=== PATIENT | female | born 1975 ===

== ENCOUNTER 2020-11-22 20:39 | Inpatient (IN) | payer OTHER, SELFPAY ==
--- NOTE | ~2020-11-22 | XR_ITS ---
EXAMINATION: XR CHEST CLINICAL INFORMATION: Palpitations COMPARISON: Chest x-ray December 08, 2018 TECHNIQUE: Frontal portable view of the chest was obtained. 9:57 PM FINDINGS: No significant abnormality is noted involving the heart, lungs, mediastinum, bony thorax or soft tissues. XR/XR chest 1V IMPRESSION: Unremarkable examination.
[2020-11-22 20:54] VITALS: BP 132/82; PULSE 78; RESP 16; TEMP 36.4; O2SAT 100; BMI 46.3
--- NOTE | 2020-11-22 21:04 | ECG_ITS ---
Test Reason : PALPITATIONS Blood Pressure : / mmHG Vent. Rate : 129 BPM Atrial Rate : 115 BPM P-R Int : 000 ms QRS Dur : 088 ms QT Int : 320 ms P-R-T Axes : 000 -16 055 degrees QTc Int : 468 ms Atrial fibrillation with rapid ventricular response Minimal voltage criteria for LVH, may be normal variant Septal infarct , age undetermined Abnormal ECG No previous ECGs available Referred By: Generic ED Physician Electronically Signed By:Fly Noguera
[2020-11-22 21:24] LABS: MANUAL DIFF FLAG NO
[2020-11-22 21:27] LABS: Basophils Absolute Auto 0.1 X10*3/uL (0.0-0.2); Basophils Percent Auto 0.5 % (0-2); Eosinophils Absolute Auto 0.1 X10*3/uL (0.0-0.4); Eosinophils Percent Auto 1.1 % (0-4); Hematocrit 46.1 % (37-47); Hemoglobin 15.2 g/dl (12.0-16.0); Imm Gran Abs Auto 0.03 X10*3/uL (0.00-0.03); Imm Gran Pct Auto 0.3 % (0.0-0.4); Lymphocytes Absolute Auto 3.8 X10*3/uL (1.2-4.9); Lymphocytes Percent Auto 33.4 % (20-40); Mean Corpuscular Hemoglobin 28.1 pg (27.0-33.0); Mean Corpuscular Volume 85.4 fL (80-98); Mean Platelet Volume 9.1 fL (9.4-12.3); Monocytes Percent Auto 8.5 % (2-11); Neutrophils Absolute Auto 6.4 X10*3/uL (2.0-8.3); Neutrophils Percent Auto 56.2 % (45-73); Platelet Count 297 X10*3/uL (160-400); Red Cell Distribution Width 11.9 % (11.0-16.0); White Blood Count 11.3 X10*3/uL (4.8-10.8)
--- NOTE | 2020-11-22 21:34 | ED.ARRPALP ---
HPI - Arrhythmia/Palpitations General Chief Complaint: Arrhythmia/Palpitations Stated Complaint: palpitations Time Seen by Provider: 11/22/20 21:34 Source: patient Mode of arrival: ambulatory Limitations: no limitations History of Present Illness HPI narrative: Patient history of lone fibrillation last episode was 5 years ago not on any medications noticed sudden onset of palpitation after walking for an hour started at 16:30 on arrival patient was beating 160 beats per minute AFib feel little lightheaded and weak denies any shortness of breath or chest pain patient had occasional episode lasting a few minutes in the past 5 years never had to go to the hospital complaint: rapid heart beat Onset (ago): hour(s) (4) Duration: constant Related Data Home Medications Medication Instructions Recorded Confirmed chlorthalidone 1 tab PO DAILY 11/22/20 11/22/20 oxybutynin chloride 2 tab PO DAILY 11/22/20 11/22/20 Allergies Allergy/AdvReac Type Severity Reaction Status Date / Time No Known Allergies Allergy Unverified 05/12/20 17:17 [No Known Allergies*] Review of Systems Review of Systems: Constitutional : No Weight loss, No Fever, No Chills ENT/Mouth : No sore throat, No Rhinorrhea Eyes: No Eye Pain, No Swelling Cardiovascular : No Chest Pain, + palpitations Respiratory : No Cough, No Sputum, no shortness of breath Gastrointestinal : no Nausea, No Vomiting, No Diarrhea, No abdominal Pain, no black stools Genitourinary : No Dysuria, No Urinary Frequency Musculoskeletal : No joint pain, No Myalgias, No Joint Swelling Skin : No Skin Lesions, No rash Neuro : No Weakness, No Numbness, No Dizziness, No Headache Psych : No Anxiety/Panic, No Depression Heme/Lymph: No Bruising, No Lymphadenopathy Endocrine : No Polyuria, No Polydipsia All other systems reviewed and are negative [facility] Past Medical History Medical History (Updated 11/22/20 @ 23:33 by Joshua Raza MD) Asthma Atrial fibrillation Sleep apnea, obstructive Social History Social History Advance Directives: No Physical Exam Vital Signs: Vital Signs: Last Vital Signs Temp 97.5 F 11/22/20 20:54 Pulse 75 11/23/20 02:50 Resp 20 11/23/20 02:50 BP 123/66 11/23/20 00:55 Pulse Ox 95 11/23/20 00:55 Body Mass Index 46.3 Appearance: Alert. Oriented X3. Mild distress. Eyes: Pupils equal, round and reactive to light. ENT: Pharynx normal. Neck: Normal inspection. Neck supple. CVS: Tachycardia irregular irregular Pulse Respiratory: No respiratory distress. Breath sounds normal. Abdomen: Soft and nontender. Bowel sounds are present, no mass palpable, no CVA tenderness Skin: Skin warm and dry. Normal skin color. Normal skin turgor. Extremities: No lower extremity edema. No calf tenderness Neuro: Oriented X 3. No motor deficit. No sensory deficit. MDM - Arrhythmia/Palpitations MDM Narrative Medical decision making narrative: Patient with lone atrial fibrillation with asthma and sleep apnea not using the CPAP machine came with palpitation with heart rate in 160s. Patient responded to IV Cardizem 20 mg heart rate is now less than 100 still AFib case discussed with Dr. Noguera hop trainer plan to admit to start a Cardizem drip if heart rate increases plan for echo and workup and cardioversion if AFib persist >>Patient responded to p.o. Cardizem CD 120 mg patient's heart rate is less than 100 now , still in AFib Differential Diagnosis Differential diagnosis: Likely artial fibrillation and artial flutter Medical Records Attestation: I reviewed the patient's medical records. Lab Data Attestation: I reviewed the patient's lab results. Result diagrams: 11/22/20 21:18 11/22/20 21:18 Labs: Lab Results 11/22/20 11/22/20 11/22/20 Range/Units 21:18 21:18 21:50 WBC 11.3 H (4.8-10.8) X10*3/uL RBC 5.40 (4.20-5.50) X10*6/uL Hgb 15.2 (12.0-16.0) g/dl Hct 46.1 (37-47) % MCV 85.4 (80-98) fL MCH 28.1 (27.0-33.0) pg MCHC 33.0 (31.0-35.0) g/dl RDW 11.9 (11.0-16.0) % Plt Count 297 (160-400) X10*3/uL MPV 9.1 L (9.4-12.3) fL Immature Gran % (Auto) 0.3 (0.0-0.4) % Neut % (Auto) 56.2 (45-73) % Lymph % (Auto) 33.4 (20-40) % [place] % (Auto) 8.5 (2-11) % Eos % (Auto) 1.1 (0-4) % Baso % (Auto) 0.5 (0-2) % Lymph # (Auto) 3.8 (1.2-4.9) X10*3/uL [place] # (Auto) 1.0 (0.1-1.2) X10*3/uL Eos # (Auto) 0.1 (0.0-0.4) X10*3/uL Baso # (Auto) 0.1 (0.0-0.2) X10*3/uL Abs Immat Gran (auto) 0.03 (0.00-0.03) X10*3/uL Absolute Neuts (auto) 6.4 (2.0-8.3) X10*3/uL Absolute Nucleated RBC 0.000 (0.0-0.012) X10*3/uL Nucleated RBC % (auto) 0.0 (0.0-0.2) /100WBC PT 12.6 (10.8-13.0) SEC INR 1.1 (0.9-1.1) APTT 34.0 (24.1-38.0) SEC Sodium 137 (135-145) mmol/L Potassium 3.5 (3.3-5.1) mmol/L Chloride 102 (96-108) mmol/L Carbon Dioxide 23 (22-29) mmol/L Anion Gap 16 (12-20) BUN 25 H (9-16) mg/dL Creatinine 1.01 (0.5-1.4) mg/dL Estim Creat Clear Calc 104.0 Estimated GFR 59 Random Glucose 125 H (60-115) mg/dL Calcium 9.4 (8.4-10.2) mg/dL Magnesium 2.1 (1.6-2.6) mg/dL Total Bilirubin 0.5 (0.0-1.0) mg/dL Direct Bilirubin 0.2 (0.0-0.5) mg/dL AST 36 H (5-31) U/L ALT 54 H (0-31) U/L Alkaline Phosphatase 76 (39-117) U/L Troponin I High Sens (<3.5-17.0) ng/L B-Natriuretic Peptide (<100) pg/mL Total Protein 7.4 (6.5-8.0) g/dL Albumin 4.3 (3.5-5.0) g/dL TSH 0.97 (0.32-4.0) uIU/mL COVID-19 (RD) (Negative) COVID-19 Clin Com 11/22/20 11/22/20 Range/Units 21:50 22:19 WBC (4.8-10.8) X10*3/uL RBC (4.20-5.50) X10*6/uL Hgb (12.0-16.0) g/dl Hct (37-47) % MCV (80-98) fL MCH (27.0-33.0) pg MCHC (31.0-35.0) g/dl RDW (11.0-16.0) % Plt Count (160-400) X10*3/uL MPV (9.4-12.3) fL Immature Gran % (Auto) (0.0-0.4) % Neut % (Auto) (45-73) % Lymph % (Auto) (20-40) % [place] % (Auto) (2-11) % Eos % (Auto) (0-4) % Baso % (Auto) (0-2) % Lymph # (Auto) (1.2-4.9) X10*3/uL [place] # (Auto) (0.1-1.2) X10*3/uL Eos # (Auto) (0.0-0.4) X10*3/uL Baso # (Auto) (0.0-0.2) X10*3/uL Abs Immat Gran (auto) (0.00-0.03) X10*3/uL Absolute Neuts (auto) (2.0-8.3) X10*3/uL Absolute Nucleated RBC (0.0-0.012) X10*3/uL Nucleated RBC % (auto) (0.0-0.2) /100WBC PT (10.8-13.0) SEC INR (0.9-1.1) APTT (24.1-38.0) SEC Sodium (135-145) mmol/L Potassium (3.3-5.1) mmol/L Chloride (96-108) mmol/L Carbon Dioxide (22-29) mmol/L Anion Gap (12-20) BUN (9-16) mg/dL Creatinine (0.5-1.4) mg/dL Estim Creat Clear Calc Estimated GFR Random Glucose (60-115) mg/dL Calcium (8.4-10.2) mg/dL Magnesium (1.6-2.6) mg/dL Total Bilirubin (0.0-1.0) mg/dL Direct Bilirubin (0.0-0.5) mg/dL AST (5-31) U/L ALT (0-31) U/L Alkaline Phosphatase (39-117) U/L Troponin I High Sens 16.7 (<3.5-17.0) ng/L B-Natriuretic Peptide < 10 (<100) pg/mL Total Protein (6.5-8.0) g/dL Albumin (3.5-5.0) g/dL TSH (0.32-4.0) uIU/mL COVID-19 (RD) Negative (Negative) COVID-19 Clin Com See Note ECG Data Attestation: I personally reviewed and interpreted this ECG as follows: Interpretation: Atrial fibrillation heart rate 129 beats per minute LVH normal axis no acute ST T wave changes no acute ischemia Discharge Plan Discharge Clinical Impression: Atrial fibrillation Qualifiers: Atrial fibrillation type: paroxysmal Qualified Code(s): I48.0 - Paroxysmal atrial fibrillation Patient Disposition: Admitted As Inpatient
[2020-11-22 21:42] VITALS: PULSE 165
[2020-11-22] MEDS: dilTIAZem HCL 50 MG/10 ML VIAL 20 MG IVPUSH (21:42)
[2020-11-22 21:47] VITALS: BP 116/77; PULSE 86; RESP 20; O2SAT 95
[2020-11-22 22:00] VITALS: PULSE 84; RESP 16; O2SAT 99
[2020-11-22 22:00] LABS: Anion Gap 16 (12-20); Blood Urea Nitrogen 25 mg/dL (9-16); Calcium 9.4 mg/dL (8.4-10.2); Carbon Dioxide 23 mmol/L (22-29); Chloride 102 mmol/L (96-108); Estimated Glomerular Filt Rate 59; Glucose Random 125 mg/dL (60-115); Potassium 3.5 mmol/L (3.3-5.1); Sodium 137 mmol/L (135-145)
[2020-11-22 22:07] LABS: INTERNATIONAL NORM RATIO 1.1 (0.9-1.1); Prothrombin Time 12.6 SEC (10.8-13.0)
--- NOTE | 2020-11-22 22:20 | PC.NURSE ---
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 When came into triage EKG performed, found to be in A.Fib. Upon bringing back into ED bed, IV placed and pt placed on valve assembler. Heart rate fluctuating with rate up to 160s. Pt given Cardiezm as ordered with positive relief of rapid A. Fib. Rate maintaining in 80s-90s. Pt remains awake and alert, breathing equal and unlabored. Denies chest pain. Will continue to monitor.
[2020-11-22 22:34] LABS: B Type Natriuretic Peptide < 10 pg/mL (<100); Troponin-I High Sensitivity 16.7 ng/L (<3.5-17.0)
[2020-11-22 22:38] LABS: Alanine Aminotransferase 54 U/L (0-31); Albumin Level 4.3 g/dL (3.5-5.0); Alkaline Phosphatase 76 U/L (39-117); Aspartate Amino Transferase 36 U/L (5-31); Bilirubin Direct 0.2 mg/dL (0.0-0.5); Bilirubin Total 0.5 mg/dL (0.0-1.0); Magnesium 2.1 mg/dL (1.6-2.6); Total Protein 7.4 g/dL (6.5-8.0)
[2020-11-22 22:41] VITALS: BP 116/87; PULSE 98; RESP 16
[2020-11-22 22:43] LABS: COVID-19 Test Negative (Negative)
--- NOTE | 2020-11-22 22:43 | PC.NURSE ---
At this time, pt resting in bed. States occasional episodes of palpitations, at this time rate in 90s-low 100s. Denies chest pain or shortness of breath. Will continue to monitor
[2020-11-22 23:38] VITALS: BP 116/87; PULSE 110
[2020-11-22] MEDS: dilTIAZem HCL CD 120 MG CAP.ER.DEG PO (23:38)
[2020-11-23] VITALS (12 sets, daily range): BP systolic 110–133; BP diastolic 66–90; PULSE 55–140; RESP 16–20; TEMP 36.1–36.6; O2SAT 95–99
--- NOTE | 2020-11-23 00:37 | P.HPHOSP_ITS ---
History of Present Illness Date of Service: 11/23/20 Chief Complaint: Palpitations 45-year-old female with a past medical history of asthma presented to the hospital with a chief complaint of palpitations. Patient mentions that today she went for walking and after she came back she noticed palpitations. Denies a ny associated chest pain lightheadedness dizziness or shortness of breath. Mentions her her asthma is stable. Patient also reports that she has a very remote history of appy on time and which resolved. Currently denies any fever chills cough. Denies any recent travel or sick contacts. Review of all other systems is negative except mentioned above ER course: Per ER team patient was noted to be in AFib with rapid ventricular response: Patient was given diltiazem with mild improvement in heart rate. Spoke to Cardiology who recommended admission for further evaluation. [facility] Medical History Asthma Atrial fibrillation Sleep apnea, obstructive Social History Household Members: Spouse and Children Housing: House Smoking Status: Former smoker service: No Current occupational status: unemployed Meds Allergies Allergy/AdvReac Type Severity Reaction Status Date / Time No Known Allergies Allergy Unverified 05/12/20 17:17 [No Known Allergies*] Active Medications: Current Medications Generic Name Dose Route Start Last Admin Trade Name Freq PRN Reason Stop Dose Admin Acetaminophen 650 mg 11/23/20 00:34 Acetaminophen 325 Mg Tablet PO Q6H PRN Pain, Mild (Pain Scale 1-3) Enoxaparin Sodium 40 mg 11/23/20 00:45 Enoxaparin Sodium 40 Mg/0.4 Ml Syringe SUBCUT Q24H [facility] Sodium Chloride 1,000 mls @ 100 mls/hr 11/23/20 00:45 Ns IVCONT .Q10H [facility] Senna 17.2 mg 11/23/20 00:34 Sennosides 8.6 Mg Tablet PO BEDTIME PRN Constipation Sodium Chloride 3 ml 11/23/20 08:00 0.9 % Sodium Chloride Flush 3 Ml Syringe IVFLUSH QSHIFT [facility] Home Medications Medication Instructions Recorded Confirmed Last Taken Type chlorthalidone 1 tab PO DAILY 11/22/20 11/22/20 11/21/20 History oxybutynin chloride 2 tab PO DAILY 11/22/20 11/22/20 11/22/20 History Physical Exam Vital Signs and Narrative: Vital Signs: Last Vital Signs Temp 97.5 F 11/22/20 20:54 Pulse 110 H 11/22/20 23:38 Resp 16 11/22/20 22:41 BP 116/87 11/22/20 23:38 Pulse Ox 99 11/22/20 22:00 Body Mass Index 46.3 Gen: Appears be in no acute distress. Obese HEENT: NCAT, Moist mucosa. Pulmonary: Vesicular breath sounds, fair air entry CVS: Normal S1-S2 Abdomen: BS+, Soft, Nontender Extremities: Warm well perfused Neuro: Alert and awake. Results Labs CBC and Chem 7: 11/23/20 07:11 11/23/20 07:11 Labs: Laboratory Results - last 24 hr 11/22/20 11/22/20 11/22/20 21:18 21:18 21:50 MCV 85.4 MCH 28.1 MCHC 33.0 RDW 11.9 Plt Count 297 MPV 9.1 L Immature Gran % (Auto) 0.3 Neut % (Auto) 56.2 Lymph % (Auto) 33.4 [place] % (Auto) 8.5 Eos % (Auto) 1.1 Baso % (Auto) 0.5 Lymph # (Auto) 3.8 [place] # (Auto) 1.0 Eos # (Auto) 0.1 Baso # (Auto) 0.1 Abs Immat Gran (auto) 0.03 Absolute Neuts (auto) 6.4 Absolute Nucleated RBC 0.000 Nucleated RBC % (auto) 0.0 PT 12.6 INR 1.1 APTT 34.0 Anion Gap 16 Estim Creat Clear Calc 104.0 Estimated GFR 59 Random Glucose 125 H Calcium 9.4 Magnesium 2.1 Total Bilirubin 0.5 Direct Bilirubin 0.2 AST 36 H ALT 54 H Alkaline Phosphatase 76 Troponin I High Sens B-Natriuretic Peptide Total Protein 7.4 Albumin 4.3 COVID-19 (RD) COVID-19 Clin Com 11/22/20 11/22/20 21:50 22:19 MCV MCH MCHC RDW Plt Count MPV Immature Gran % (Auto) Neut % (Auto) Lymph % (Auto) [place] % (Auto) Eos % (Auto) Baso % (Auto) Lymph # (Auto) [place] # (Auto) Eos # (Auto) Baso # (Auto) Abs Immat Gran (auto) Absolute Neuts (auto) Absolute Nucleated RBC Nucleated RBC % (auto) PT INR APTT Anion Gap Estim Creat Clear Calc Estimated GFR Random Glucose Calcium Magnesium Total Bilirubin Direct Bilirubin AST ALT Alkaline Phosphatase Troponin I High Sens 16.7 B-Natriuretic Peptide < 10 Total Protein Albumin COVID-19 (RD) Negative COVID-19 Clin Com See Note Imaging Radiologist's Impressions: Impressions Chest X-Ray 11/22/20 21:34 IMPRESSION: Unremarkable examination. Assessment and Plan (1) Atrial fibrillation: Qualifiers: Atrial fibrillation type: paroxysmal Qualified Code(s): I48.0 - Paroxysmal atrial fibrillation Problem details: She has previous history of atrial fibrillation and underwent cardioversion in the past. Unclear how long she has been in atrial fibrillation. Status: Acute 45-year-old female with remote history of atrial fibrillation, asthma presented to the hospital with a chief complaint of palpitations. Noted to be in AFib with RVR. Admitted to the hospital for further management. AFib with RVR: Will obtain TSH Continue diltiazem p.o. 30 mg q.6h Will keep the patient on diltiazem 10 mg IV Q 4 p.r.n. if heart rate greater than 125 Cardiology consulted Echocardiogram Patient has a Maximiliano Vasc score of 1. Will defer further recommendations to Cardiology. History of asthma: Stable DVT prophylaxis: Lovenox Code status: Full code
[2020-11-23] MEDS: Aspirin 81 MG TAB.CHEW 162 MG PO (00:50)
[2020-11-23] MEDS: 0.9 % Sodium Chloride 1,000 ML 100 ML IVCONT ×2 (00:57→11:17)
[2020-11-23 02:02] LABS: Thyroid Stimulating Hormone 0.97 uIU/mL (0.32-4.0)
[2020-11-23] MEDS: Enoxaparin Sodium 40 MG/0.4 ML SYRINGE SUBCUT (05:51)
[2020-11-23 07:16] LABS: MANUAL DIFF FLAG NO
[2020-11-23 07:36] LABS: Basophils Absolute Auto 0.1 X10*3/uL (0.0-0.2); Basophils Percent Auto 0.6 % (0-2); Eosinophils Absolute Auto 0.1 X10*3/uL (0.0-0.4); Eosinophils Percent Auto 1.7 % (0-4); Hematocrit 44.7 % (37-47); Hemoglobin 14.5 g/dl (12.0-16.0); Imm Gran Abs Auto 0.03 X10*3/uL (0.00-0.03); Imm Gran Pct Auto 0.4 % (0.0-0.4); Lymphocytes Absolute Auto 3.1 X10*3/uL (1.2-4.9); Lymphocytes Percent Auto 38.2 % (20-40); Mean Corpuscular HGB Conc 32.4 g/dl (31.0-35.0); Mean Corpuscular Hemoglobin 27.8 pg (27.0-33.0); Mean Corpuscular Volume 85.8 fL (80-98); Mean Platelet Volume 9.3 fL (9.4-12.3); Monocytes Absolute Auto 0.9 X10*3/uL (0.1-1.2); Monocytes Percent Auto 10.8 % (2-11); Neutrophils Absolute Auto 3.9 X10*3/uL (2.0-8.3); Neutrophils Percent Auto 48.3 % (45-73); Platelet Count 254 X10*3/uL (160-400); Red Blood Count 5.21 X10*6/uL (4.20-5.50); Red Cell Distribution Width 11.9 % (11.0-16.0)
[2020-11-23 07:46] LABS: Anion Gap 14 (12-20); Blood Urea Nitrogen 19 mg/dL (9-16); Calcium 8.5 mg/dL (8.4-10.2); Carbon Dioxide 23 mmol/L (22-29); Chloride 105 mmol/L (96-108); Estimated Glomerular Filt Rate > 60; Glucose Random 105 mg/dL (60-115); Potassium 3.5 mmol/L (3.3-5.1); Sodium 138 mmol/L (135-145)
[2020-11-23] MEDS: dilTIAZem HCL 30 MG TABLET PO ×3 (08:39→21:32)
--- NOTE | 2020-11-23 12:38 | MHC.CM.PN ---
pt lives c her spouse and daughter in their home. she reports she is independent in her care. her family is able to help her should she have any needs, this will include a ride home at pa. pt has [facility] [employer] insurance which she tells me will reinstate tomorrow, 11/24/20. evidently it had . this plan does have a drug formulary which is of concern as patient may be dc'd on new medications. pt denies the need for vna at pa. cm to cont. to follow.
[2020-11-23] MEDS: Acetaminophen 325 MG TABLET 650 MG PO ×2 (16:05→21:32)
[2020-11-23] MEDS: 0.9 % Sodium Chloride Flush 3 ML SYRINGE IVFLUSH (16:05)
--- NOTE | 2020-11-23 16:37 | P.CONCA_ITS ---
History of Present Illness History of Present Illness Date of Service: 11/23/20 Requesting physician: Joey Blank Chief complaint: Afib with RVR Narrative: 45-year-old female with background history of atrial fibrillation for which she underwent cardioversion in the past. She is presenting with palpitations which started last evening. She was noticed to be in AFib with RVR. She was admitted for further care. She has been given Cardizem with some improvement in rate control and she has no significant palpitations anymore. She has no bleeding issues. She has known sleep apnea but was intolerant of the CPAP mask and has not been using that regularly. She also has background of hypertension and it appears she was on chlorthalidone in the past. No other issues right now. She is feeling better but continues to be in atrial fibrillation. [facility] Past Medical History Medical History (Updated 11/23/20 @ 16:42 by Fly Noguera MD) Asthma Atrial fibrillation Sleep apnea, obstructive Social History Social History Household Members: Spouse and Children Housing: House Do you presently have visiting nurse or other home services: No Smoking Status: Former smoker Use of substances other than those prescribed or required for medical reasons: No Have you been hit, kicked, punched, or otherwise hurt by someone within the past year? If so, by whom?: No Do you feel safe in your current relationship?: Yes Is there a partner from a previous relationship who is making you feel unsafe now?: No Are you made to feel afraid or neglected: No Advance Directives: No Do you have thoughts of harming others: None Do you have a plan to hurt others: No Plan Recently lost weight without trying: No service: No Current occupational status: unemployed Meds Allergies Allergy/AdvReac Type Severity Reaction Status Date / Time No Known Allergies Allergy Unverified 05/12/20 17:17 [No Known Allergies*] Active Medications: Current Medications Generic Name Dose Route Start Last Admin Trade Name Freq PRN Reason Stop Dose Admin Acetaminophen 650 mg 11/23/20 00:34 11/23/20 16:05 Acetaminophen 325 Mg Tablet PO 650 mg Q6H PRN Administration Pain, Mild (Pain Scale 1-3) Apixaban 5 mg 11/23/20 21:00 Apixaban 5 Mg Tablet PO BID [facility] Diltiazem HCl 30 mg 11/23/20 09:00 11/23/20 16:04 Diltiazem Hcl 30 Mg Tablet PO 30 mg QID ESDRAS Administration Protocol Diltiazem HCl 10 mg 11/23/20 00:36 Diltiazem Hcl 50 Mg/10 Ml Vial IVPUSH Q4H PRN HR>125 Sodium Chloride 1,000 mls @ 100 mls/hr 11/23/20 00:45 11/23/20 11:17 Ns IVCONT 100 mls/hr .Q10H ESDRAS Administration Senna 17.2 mg 11/23/20 00:34 Sennosides 8.6 Mg Tablet PO BEDTIME PRN Constipation Sodium Chloride 3 ml 11/23/20 08:00 11/23/20 16:05 0.9 % Sodium Chloride Flush 3 Ml Syringe IVFLUSH 3 ml QSHIFT [facility] Administration Home Medications Medication Instructions Recorded Confirmed Last Taken Type chlorthalidone 1 tab PO DAILY 11/22/20 11/22/20 11/21/20 History oxybutynin chloride 2 tab PO DAILY 11/22/20 11/22/20 11/22/20 History Physical Exam Vital Signs: Vital Signs: Last Vital Signs Temp 97.4 F 11/23/20 15:35 Pulse 64 11/23/20 16:04 Resp 16 11/23/20 15:35 BP 119/80 11/23/20 16:04 Pulse Ox 98 11/23/20 15:35 Body Mass Index 46.3 GENERAL APPEARANCE: in no acute distress, overweight. HEENT: unremarkable. HEAD: normocephalic, atraumatic. NECK/THYROID: no carotid bruit, no jugular venous distention. SKIN: no suspicious lesions, warm and dry. HEART: no murmurs, irregular rate and rhythm, S1, S2 normal. LUNGS: clear to auscultation bilaterally. ABDOMEN: normal, bowel sounds present, soft, nontender, nondistended. EXTREMITIES: no clubbing, cyanosis, or edema. PERIPHERAL PULSES: equal. NEUROLOGIC: nonfocal, alert and oriented. PSYCH: mood/affect full range. Results Labs and Meds Result diagrams: 11/23/20 07:11 11/23/20 07:11 Lab results: Laboratory Results - last 24 hr 11/22/20 11/22/20 11/22/20 21:18 21:18 21:50 WBC 11.3 H RBC 5.40 Hgb 15.2 Hct 46.1 MCV 85.4 MCH 28.1 MCHC 33.0 RDW 11.9 Plt Count 297 MPV 9.1 L Immature Gran % (Auto) 0.3 Neut % (Auto) 56.2 Lymph % (Auto) 33.4 [place] % (Auto) 8.5 Eos % (Auto) 1.1 Baso % (Auto) 0.5 Lymph # (Auto) 3.8 [place] # (Auto) 1.0 Eos # (Auto) 0.1 Baso # (Auto) 0.1 Abs Immat Gran (auto) 0.03 Absolute Neuts (auto) 6.4 Absolute Nucleated RBC 0.000 Nucleated RBC % (auto) 0.0 PT 12.6 INR 1.1 APTT 34.0 Sodium 137 Potassium 3.5 Chloride 102 Carbon Dioxide 23 Anion Gap 16 BUN 25 H Creatinine 1.01 Estim Creat Clear Calc 104.0 Estimated GFR 59 Random Glucose 125 H Calcium 9.4 Magnesium 2.1 Total Bilirubin 0.5 Direct Bilirubin 0.2 AST 36 H ALT 54 H Alkaline Phosphatase 76 Troponin I High Sens B-Natriuretic Peptide Total Protein 7.4 Albumin 4.3 TSH 0.97 COVID-19 (RD) COVID-19 Clin [facility] 11/22/20 11/22/20 11/23/20 21:50 22:19 07:11 WBC 8.0 RBC 5.21 Hgb 14.5 Hct 44.7 MCV 85.8 MCH 27.8 MCHC 32.4 RDW 11.9 Plt Count 254 MPV 9.3 L Immature Gran % (Auto) 0.4 Neut % (Auto) 48.3 Lymph % (Auto) 38.2 [place] % (Auto) 10.8 Eos % (Auto) 1.7 Baso % (Auto) 0.6 Lymph # (Auto) 3.1 [place] # (Auto) 0.9 Eos # (Auto) 0.1 Baso # (Auto) 0.1 Abs Immat Gran (auto) 0.03 Absolute Neuts (auto) 3.9 Absolute Nucleated RBC 0.000 Nucleated RBC % (auto) 0.0 PT INR APTT Sodium Potassium Chloride Carbon Dioxide Anion Gap BUN Creatinine Estim Creat Clear Calc Estimated GFR Random Glucose Calcium Magnesium Total Bilirubin Direct Bilirubin AST ALT Alkaline Phosphatase Troponin I High Sens 16.7 B-Natriuretic Peptide < 10 Total Protein Albumin TSH COVID-19 (RD) Negative COVID-19 Clin Com See Note 11/23/20 07:11 WBC RBC Hgb Hct MCV MCH MCHC RDW Plt Count MPV Immature Gran % (Auto) Neut % (Auto) Lymph % (Auto) [place] % (Auto) Eos % (Auto) Baso % (Auto) Lymph # (Auto) [place] # (Auto) Eos # (Auto) Baso # (Auto) Abs Immat Gran (auto) Absolute Neuts (auto) Absolute Nucleated RBC Nucleated RBC % (auto) PT INR APTT Sodium 138 Potassium 3.5 Chloride 105 Carbon Dioxide 23 Anion Gap 14 BUN 19 H Creatinine 0.74 Estim Creat Clear Calc 142.0 Estimated GFR > 60 Random Glucose 105 Calcium 8.5 D Magnesium Total Bilirubin Direct Bilirubin AST ALT Alkaline Phosphatase Troponin I High Sens B-Natriuretic Peptide Total Protein Albumin TSH COVID-19 (RD) COVID-19 Clin Com Imaging Radiologist's impression: Impressions Chest X-Ray 11/22/20 21:34 IMPRESSION: Unremarkable examination. Assessment and Plan (1) Atrial fibrillation: Qualifiers: Atrial fibrillation type: paroxysmal Qualified Code(s): I48.0 - Paroxysmal atrial fibrillation Problem details: She has previous history of atrial fibrillation and underwent cardioversion in the past. Unclear how long she has been in atrial fibrillation. Status: Acute I had a detailed discussion with the patient and her about management plan. We discussed about PAYAM cardioversion. She is agreeable and we are going to arrange PAYAM cardioversion for her tomorrow. I am starting her on Eliquis which she will continue at least for next 6 weeks. Discussing with her she is saying she does not have any history of hypertension but chlorthalidone is an active medication for her. If in fact she has diagnosed hypertension that her chads Vasc score is 2. In that situation I think long-term anticoagulation is a possibility that has to be discussed. We will discuss this more after cardioversion tomorrow. Keep her NPO after midnight. I think her atrial fibrillation is worsened by her sleep apnea. I have explained to her that sleep apnea treatment is significantly important in her case. Thank you for allowing me to participate in the care of your patient. Please feel free to contact me if you have any questions.
[2020-11-23] MEDS: Apixaban 5 MG TABLET PO (21:32)
[2020-11-23] MEDS: Melatonin 3 MG TABLET 6 MG PO (21:32)
[2020-11-24] VITALS (8 sets, daily range): BP systolic 106–125; BP diastolic 64–98; PULSE 64–86; RESP 16–20; TEMP 36–36.9; O2SAT 95–99
[2020-11-24] MEDS: 0.9 % Sodium Chloride 1,000 ML 100 ML IVCONT ×2 (00:21→09:18)
--- NOTE | 2020-11-24 01:05 | PC.NURSE ---
pt in afib on tele dipping inot low 40 s, pt assessed, easily arousable A&Ox4
--- NOTE | 2020-11-24 01:08 | PC.NURSE ---
Pt afib on tele, HR dipping into low 40's, pt assessed, easily arousable, A&O. offers no complaints other than stiff neck, Md made aware of low heart rate and neck pain. new order for lidocaine patch. will cont to monitor
[2020-11-24] MEDS: Lidocaine 4 % Patch ADH..PATCH 1 PATCH TRANSDERMA (01:19)
--- NOTE | 2020-11-24 07:27 | MHC.SHP ---
Pre-Procedural Eval Section A The patient is an INPATIENT: Yes The History & Physical has been completed within 30 days and I have reviewed it.: Yes Section B Chief Complaint: Afib with RVR Allergies: Allergies Allergy/AdvReac Type Severity Reaction Status Date / Time No Known Allergies Allergy Unverified 05/12/20 17:17 [No Known Allergies*] Plan Diagnosis/Plan: Unchanged I have reviewed the history and physical and performed a pertinent physical examination on my patient. No changes have occurred unless specified.
--- NOTE | 2020-11-24 07:30 | CA_ITS ---
Transesophageal Echocardiogram Patient (Last, First, Middle): Steph Neal, Gender: Female Date of : 1975 Age: 45 Procedure Date: 11/24/2020 Procedure Type: Transesophageal Echocardiogram Location: [facility] Height: 172.72 cm Weight: 138.35 kg BSA: 2.45 m2 Heart Rate: bpm BP: 110 / 67 mmHg Crop Production Advisor: GISSEL Referring MD: Fly Noguera MD Symptoms: Afib Conclusion: ??? Normal biventricular function. ??? No thrombus in the PEYTON. ??? We proceeded with cardioversion. Findings Procedure Information Consent was obtained prior to the procedure. The probe was passed with no difficulty. This was a technically good study. Left Ventricle Normal left ventricular size, thickness, systolic function, and wall motion. The visually estimated ejection fraction is between 55-60%. Diastolic function is indeterminate on the basis of available data. Right Ventricle Normal right ventricular cavity size and systolic function. Atria The left atrium is likely dilated. There is an interatrial septal aneurysm seen. There is no evidence of thrombus or mass in the left atrium. Contrast used for the PEYTON opacification to rule out thrombus. Aortic Valve Normal aortic valve structure and function. There is no aortic valve stenosis. There is no aortic valve regurgitation. Mitral Valve Normal mitral valve structure and function. There is no mitral valve regurgitation. There is no mitral valve stenosis. Pulmonic Valve The pulmonic valve was not well visualized. Tricuspid Valve Normal tricuspid valve structure and function. There is trace tricuspid valve regurgitation. Tricuspid regurgitation envelope is inadequate for calculation of right ventricular systolic pressure. Indeterminate right atrial pressure. Great Vessels All visible segments of the aorta are normal in size. Venous The inferior vena cava was not well visualized. Pericardium/Pleural There is no evidence of pericardial effusion. Prior Study Comparison No prior study available for comparison. Updated by Fly Noguera on 09:52 PM with Status of Final Fly Noguera MD electronically signed on 11/24/2020 9:52:25 PM with status of Final
[2020-11-24] MEDS: Apixaban 5 MG TABLET PO (07:31)
--- NOTE | 2020-11-24 07:31 | P.CONAN_ITS ---
[facility] Active Problems Active Problems: All Active Problems (Updated 11/23/20 @ 16:42 by Fly bennett MD) Atrial fibrillation (Acute) Past Medical History Medical History Asthma Atrial fibrillation Sleep apnea, obstructive Social History Social History Household Members: Spouse and Children Housing: House Do you presently have visiting nurse or other home services: No Smoking Status: Former smoker Use of substances other than those prescribed or required for medical reasons: No Currently Displaying Signs/Symptoms of Drug Intoxication Withdrawal: No Have you been hit, kicked, punched, or otherwise hurt by someone within the past year? If so, by whom?: No Do you feel safe in your current relationship?: Yes Is there a partner from a previous relationship who is making you feel unsafe now?: No Are you made to feel afraid or neglected: No Advance Directives: No Do you have thoughts of harming others: None Do you have a plan to hurt others: No Plan Recently lost weight without trying: No service: No Current occupational status: unemployed Meds Allergies Allergy/AdvReac Type Severity Reaction Status Date / Time No Known Allergies Allergy Unverified 05/12/20 17:17 [No Known Allergies*] Active Medications: Current Medications Generic Name Dose Route Start Last Admin Trade Name Freq PRN Reason Stop Dose Admin Acetaminophen 650 mg 11/23/20 00:34 11/23/20 21:32 Acetaminophen 325 Mg Tablet PO 650 mg Q6H PRN Administration Pain, Mild (Pain Scale 1-3) Apixaban 5 mg 11/23/20 21:00 11/23/20 21:32 Apixaban 5 Mg Tablet PO 5 mg BID ESDRAS Administration Diltiazem HCl 30 mg 11/23/20 09:00 11/23/20 21:32 Diltiazem Hcl 30 Mg Tablet PO 30 mg QID ESDRAS Administration Protocol Diltiazem HCl 10 mg 11/23/20 00:36 Diltiazem Hcl 50 Mg/10 Ml Vial IVPUSH Q4H PRN HR>125 Sodium Chloride 1,000 mls @ 100 mls/hr 11/23/20 00:45 11/24/20 05:50 Ns IVCONT 0 mls/hr .Q10H ESDRAS Infusion Lidocaine 1 patch 11/24/20 09:00 11/24/20 01:19 Lidocaine 4 % Patch Adh..Patch TRANSDERMA 1 patch DAILY ESDRAS Administration Protocol Melatonin 6 mg 11/23/20 20:10 11/23/20 21:32 Melatonin 3 Mg Tablet PO 6 mg BEDTIME PRN Administration Insomnia Senna 17.2 mg 11/23/20 00:34 Sennosides 8.6 Mg Tablet PO BEDTIME PRN Constipation Sodium Chloride 3 ml 11/23/20 08:00 11/24/20 00:22 0.9 % Sodium Chloride Flush 3 Ml Syringe IVFLUSH Not Given QSHIFT [facility] Home Medications Medication Instructions Recorded Confirmed Last Taken Type chlorthalidone 1 tab PO DAILY 11/22/20 11/22/20 11/21/20 History oxybutynin chloride 2 tab PO DAILY 11/22/20 11/22/20 11/22/20 History Exam Exam Date and Time: November 24, 2020 0731 Height,Weight and Vital Signs: Height 5 ft 8 in Weight 138.346 kg Last Vital Signs Temp 96.8 F 11/24/20 06:28 Pulse 83 11/24/20 06:28 Resp 18 11/24/20 06:28 BP 125/84 11/24/20 06:28 Pulse Ox 98 11/24/20 06:28 Pertinent Lab Results Pertinent Lab Results: Laboratory Tests 11/22/20 11/22/20 11/22/20 21:18 21:18 21:50 WBC 11.3 H RBC 5.40 Hgb 15.2 Hct 46.1 MCV 85.4 MCH 28.1 MCHC 33.0 RDW 11.9 Plt Count 297 MPV 9.1 L Immature Gran % (Auto) 0.3 Neut % (Auto) 56.2 Lymph % (Auto) 33.4 [place] % (Auto) 8.5 Eos % (Auto) 1.1 Baso % (Auto) 0.5 Lymph # (Auto) 3.8 [place] # (Auto) 1.0 Eos # (Auto) 0.1 Baso # (Auto) 0.1 Abs Immat Gran (auto) 0.03 Absolute Neuts (auto) 6.4 Absolute Nucleated RBC 0.000 Nucleated RBC % (auto) 0.0 PT 12.6 INR 1.1 APTT 34.0 Sodium 137 Potassium 3.5 Chloride 102 Carbon Dioxide 23 Anion Gap 16 BUN 25 H Creatinine 1.01 Estim Creat Clear Calc 104.0 Estimated GFR 59 Random Glucose 125 H Calcium 9.4 Magnesium 2.1 Total Bilirubin 0.5 Direct Bilirubin 0.2 AST 36 H ALT 54 H Alkaline Phosphatase 76 Troponin I High Sens B-Natriuretic Peptide Total Protein 7.4 Albumin 4.3 TSH 0.97 COVID-19 (RD) COVID-19 Clin Com 11/22/20 11/22/20 11/23/20 21:50 22:19 07:11 WBC 8.0 RBC 5.21 Hgb 14.5 Hct 44.7 MCV 85.8 MCH 27.8 MCHC 32.4 RDW 11.9 Plt Count 254 MPV 9.3 L Immature Gran % (Auto) 0.4 Neut % (Auto) 48.3 Lymph % (Auto) 38.2 [place] % (Auto) 10.8 Eos % (Auto) 1.7 Baso % (Auto) 0.6 Lymph # (Auto) 3.1 [place] # (Auto) 0.9 Eos # (Auto) 0.1 Baso # (Auto) 0.1 Abs Immat Gran (auto) 0.03 Absolute Neuts (auto) 3.9 Absolute Nucleated RBC 0.000 Nucleated RBC % (auto) 0.0 PT INR APTT Sodium Potassium Chloride Carbon Dioxide Anion Gap BUN Creatinine Estim Creat Clear Calc Estimated GFR Random Glucose Calcium Magnesium Total Bilirubin Direct Bilirubin AST ALT Alkaline Phosphatase Troponin I High Sens 16.7 B-Natriuretic Peptide < 10 Total Protein Albumin TSH COVID-19 (RD) Negative COVID-19 Clin Com See Note 11/23/20 07:11 WBC RBC Hgb Hct MCV MCH MCHC RDW Plt Count MPV Immature Gran % (Auto) Neut % (Auto) Lymph % (Auto) [place] % (Auto) Eos % (Auto) Baso % (Auto) Lymph # (Auto) [place] # (Auto) Eos # (Auto) Baso # (Auto) Abs Immat Gran (auto) Absolute Neuts (auto) Absolute Nucleated RBC Nucleated RBC % (auto) PT INR APTT Sodium 138 Potassium 3.5 Chloride 105 Carbon Dioxide 23 Anion Gap 14 BUN 19 H Creatinine 0.74 Estim Creat Clear Calc 142.0 Estimated GFR > 60 Random Glucose 105 Calcium 8.5 D Magnesium Total Bilirubin Direct Bilirubin AST ALT Alkaline Phosphatase Troponin I High Sens B-Natriuretic Peptide Total Protein Albumin TSH COVID-19 (RD) COVID-19 Clin Com Airway Mallampati Class: II TM Dist: >3cm Neck ROM: Full Assessment and Plan Assessment Anesthesia Assessment: Anesthesia Plan Discussed and Chart Reviewed Final Anesthetic Review NPO: Yes ASA Class: III Final Preanesthetic Review: No Changes in Pt Med Stat, Meds/Allgs Chart Reviewed, Consent Obtained/Reviewed and Anes Risks/Benef Reviewed Patient Risk: Intermediate Procedure Risk: Low Assessment/Block/Sedation in SS: Assess/Block/Sedation-SS Anesthetic Plan Anesthetic Plan: MAC: Disposition: Standard PACU
[2020-11-24] MEDS: Lactated Ringers 1,000 ML 20 ML IVCONT (07:33)
[2020-11-24] MEDS: oxyCODONE HCl Immed Release 5 MG TABLET PO (08:35)
[2020-11-24] MEDS: 0.9 % Sodium Chloride Flush 3 ML SYRINGE IVFLUSH (10:35)
--- NOTE | 2020-11-24 11:08 | PM.PNCARD ---
Subjective Subjective Date of Service: 11/24/20 Interval history: She is status post cardioversion and is in sinus rhythm now. She is feeling better. Physical Exam Vital Signs: Last Vital Signs Temp 97.0 F 11/24/20 08:42 Pulse 64 11/24/20 08:42 Resp 18 11/24/20 08:42 BP 109/70 11/24/20 08:42 Pulse Ox 96 11/24/20 08:42 Body Mass Index 46.3 GENERAL APPEARANCE: in no acute distress, overweight. HEENT: unremarkable. HEAD: normocephalic, atraumatic. NECK/THYROID: no carotid bruit, no jugular venous distention. SKIN: no suspicious lesions, warm and dry. HEART: no murmurs, regular rate and rhythm, S1, S2 normal. LUNGS: clear to auscultation bilaterally. ABDOMEN: normal, bowel sounds present, soft, nontender, nondistended. EXTREMITIES: no clubbing, cyanosis, or edema. PERIPHERAL PULSES: equal. NEUROLOGIC: nonfocal, alert and oriented. PSYCH: mood/affect full range. Results Labs and Meds Result diagrams: 11/23/20 07:11 11/23/20 07:11 Progress Note: A&P Assessment and plan (1) Atrial fibrillation: Problem details: She has previous history of atrial fibrillation and underwent cardioversion in the past. Unclear how long she has been in atrial fibrillation. Status: Acute (2) Essential hypertension: Status: Acute Assessment and Plan: 45-year-old female with paroxysmal atrial fibrillation. This is her 3rd episode of atrial fibrillation. She previously had cardioversion in the ER. She had PAYAM cardioversion today. She is on Eliquis. It appears she has been on chlorthalidone. She is saying her blood pressure was high at some stage and she is not sure whether chlorthalidone was added at that time or it was given to her because of lower extremity edema. Her chads Vasc currently is 1-2 depending on whether we call her hypertensive or not. In any case she will stay on Eliquis for the next 6-8 weeks. She had some smoke in the left atrium but no obvious thrombus was noticed. I am stopping the Cardizem. She should get Toprol-XL 25 mg once a day. I am starting her on flecainide 50 mg twice a day. She potentially can go home with this regimen along with Eliquis. We will see her in follow-up and arrange cardiac event monitor to see AFib burden. If she continues to have significant AFib burden then I will refer for AFib ablation. Also I will refer her to Sleep Medicine for further assessment for sleep apnea and to come up with some strategy so she can tolerate her CPAP mask. Thank you for allowing me to participate in the care of your patient. Please feel free to contact me if you have any questions. Fall Risk Details Current Medications: Current Medications Generic Name Dose Route Start Last Admin Trade Name Freq PRN Reason Stop Dose Admin Acetaminophen 650 mg 11/23/20 00:34 11/23/20 21:32 Acetaminophen 325 Mg Tablet PO 650 mg Q6H PRN Administration Pain, Mild (Pain Scale 1-3) Acetaminophen 650 mg 11/24/20 07:32 Acetaminophen 325 Mg Tablet PO ONCE PRN Pain, Mild (Pain Scale 1-3) Apixaban 5 mg 11/23/20 21:00 11/24/20 10:40 Apixaban 5 Mg Tablet PO Not Given BID ESDRAS Diltiazem HCl 30 mg 11/23/20 09:00 11/24/20 10:44 Diltiazem Hcl 30 Mg Tablet PO Not Given QID ESDRAS Protocol Sodium Chloride 1,000 mls @ 100 mls/hr 11/23/20 00:45 11/24/20 09:18 Ns IVCONT 100 mls/hr .Q10H ESDRAS Administration Lactated Ringer's 1,000 mls @ 20 mls/hr 11/24/20 07:45 11/24/20 07:33 Lr IVCONT 20 mls/hr .Q24H ESDRAS Administration Lidocaine 1 patch 11/24/20 09:00 11/24/20 01:19 Lidocaine 4 % Patch Adh..Patch TRANSDERMA 1 patch DAILY ESDRAS Administration Protocol Melatonin 6 mg 11/23/20 20:10 11/23/20 21:32 Melatonin 3 Mg Tablet PO 6 mg BEDTIME PRN Administration Insomnia Senna 17.2 mg 11/23/20 00:34 Sennosides 8.6 Mg Tablet PO BEDTIME PRN Constipation Sodium Chloride 3 ml 11/23/20 08:00 11/24/20 10:35 0.9 % Sodium Chloride Flush 3 Ml Syringe IVFLUSH 3 ml QSHIFT ESDRAS Administration Time Spent With Patient Time: Total time spent is greater than 50% in coordination of care (as documented) at patient's floor/unit and/or counseling patient: Time with patient: 25 - 35 minutes
--- NOTE | 2020-11-24 11:37 | MHC.CM.PN ---
PER PHYSICIAN ROUNDS, PATIENT TO UNDERGO CARDIO-VERSION TODAY. NO PLAN FOR DISCHARGE
[2020-11-24] MEDS: Metoprolol Succinate ER 25 MG TAB.ER.24H PO (12:02)
[2020-11-24] MEDS: Flecainide Acetate 50 MG TABLET PO (12:02)
[2020-11-24] MEDS: ondansetron HCL 4 MG/2 ML VIAL IVPUSH (13:59)
--- NOTE | 2020-11-24 21:56 | HO.CARDIVERS ---
Cardioversion Procedure Note Cardioversion Date of Procedure: 11/24/20 Ordering Provider: Fly Noguera MD Performing Provider: Fly Noguera MD Indication for Procedure: Afib Pre-Op Diagnosis: Afib Post-Op Diagnosis: Afib Performed with Transesophageal Echo: Yes PAYAM findings (if PAYAM Performed): No thrombus in the PEYTON. Consent: Verbal and Written consent was obtained from the patient before starting. The patient was made aware of the risk of esophageal injury and stroke. Procedure: After consent obtained, defib pads were attached and the patient was sedated by the anesthesia team. Once adequate sedation achieved, single shock of 200 J was given which successfully cardioverted the patient to sinus rhythm. Complications: None
--- NOTE | 2020-12-24 13:22 | P.DS_ITS ---
DS: Providers Provider Date of Service: 11/24/20 Primary care physician: Yadi Escalera MD DS: Medications Discharge Medications Home Medications: Home Medications Medication Instructions Recorded Confirmed oxybutynin chloride 2 tab PO DAILY 11/22/20 11/22/20 multivitamin 1 tab PO DAILY 12/19/20 Previous Rx's Medication Instructions Recorded apixaban 5 mg tablet 5 mg PO BID #90 tab 01/30/21 flecainide 50 mg tablet 50 mg PO BID 90 Days #180 tab 01/30/21 metoprolol succinate 25 mg 25 mg PO DAILY #90 tab 01/30/21 tablet,extended release 24 hr DS: Summary Hospital Course Hospital Course: Chief Complaint: Palpitations 45-year-old female with a past medical history of asthma presented to the hospital with a chief complaint of palpitations. Patient mentions that today she went for walking and after she came back she noticed palpitations. Denies any associated chest pain lightheadedness dizziness or shortness of breath. Mentions her her asthma is stable. Patient also reports that she has a very remote history of appy on time and which resolved. Currently denies any fever chills cough. Denies any recent travel or sick contacts. Review of all other systems is negative except mentioned above ER course: Per ER team patient was noted to be in AFib with rapid ventricular response: Patient was given diltiazem with mild improvement in heart rate. Spoke to Cardiology who recommended admission for further evaluation. Hospital course: Patient was admitted for atrial fibrilation with rapid ventricular response and underwent PAYAM guided cardioversion by Dr. Noguera with islam to sinus rythm and subsequently given Eliquis and Flecainide Final diagnosis: New onset of atrial fibrilation with rapid ventricular Time Spent with Patient Time attestation: Total time spent providing and/or coordinating discharge services: Discharge coordination time: Greater than 30 minutes Quality: Stroke Does the patient have a stroke diagnosis?: No DS: Data Data Completed and Pending Completed studies during hospitalization [Text1]: Procedures [facility] of Cardiac Rhythm, Single (11/23/20) Discharge Plan Discharge Attending physician on admission: Fly Noguera Primary Care Provider: Yadi Escalera Patient Disposition: Home Health Service Referrals: Yadi Escalera MD [Primary Care Provider] - 1 Week Discharge Medications: No Action Eliquis 5 mg tablet 5 mg PO BID Qty: 90 RF: 4 flecainide 50 mg tablet 50 mg PO BID 90 Days Qty: 180 RF: 3 metoprolol succinate 25 mg tablet extended release 24 hr 25 mg PO DAILY Qty: 90 RF: 3 oxybutynin chloride 10 mg tablet extended release 24hr 2 tab PO DAILY RF: 0 multivitamin Tablet 1 tab PO DAILY RF: 0 Hospital Course: Chief Complaint: Palpitations 45-year-old female with a past medical history of asthma presented to the hospital with a chief complaint of palpitations. Patient mentions that today she went for walking and after she came back she noticed palpitations. Denies any associated chest pain lightheadedness dizziness or shortness of breath. Mentions her her asthma is stable. Patient also reports that she has a very remote history of appy on time and which resolved. Currently denies any fever chills cough. Denies any recent travel or sick contacts. Review of all other systems is negative except mentioned above ER course: Per ER team patient was noted to be in AFib with rapid ventricular response: Patient was given diltiazem with mild improvement in heart rate. Spoke to Cardiology who recommended admission for further evaluation. Hospital course: Patient was admitted for atrial fibrilation with rapid ventr icular response and underwent PAYAM guided cardioversion by Dr. Noguera with islam to sinus rythm and subsequently given Eliquis and Flecainide Final diagnosis: New onset of atrial fibrilation with rapid ventricular
== END 2020-11-24 16:15 | disposition home or self-care (01) | DRG 310 ==
LOC: HO.ED 23:33 → HO.EDOVER 11-23 00:44 → HO.S3 11-23 07:29
PROVIDERS: Internal Medicine Cardiovascular Disease; Admitting Provider Hospitalist; Emergency Provider Internal Medicine; PCP Internal Medicine; Visit Provider Internal Medicine
PROC: 5A2204Z Restoration of Cardiac Rhythm, Single (ICD-10-PCS; principal; 2020-11-24 07:30)
DX: I48.0 Paroxysmal atrial fibrillation (principal); G47.33 Obstructive sleep apnea (adult) (pediatric); J45.909 Unspecified asthma, uncomplicated; Z20.822 Contact with and (suspected) exposure to COVID-19; Z79.01 Long term (current) use of anticoagulants; Z79.899 Other long term (current) drug therapy
CPT/HCPCS: 36415; 71045; 80048; 80076; 83735; 83880; 84443; 84484; 85025; 85610; 85730; 87635; 92960; 93005; 93312; 96365; 96366; 96375; 99285; J1650; J2405; J3010; Q9957

== ENCOUNTER → 2020-12-19 15:06 | Outpatient (BNVA) | payer OTHER, SELFPAY ==
--- NOTE | 2020-12-24 13:22 | P.DS_ITS ---
DS: Providers Provider Date of Service: 11/24/20 Primary care physician: Yadi Escalera MD DS: Medications Discharge Medications Home Medications: Home Medications Medication Instructions Recorded Confirmed oxybutynin chloride 2 tab PO DAILY 11/22/20 11/22/20 multivitamin 1 tab PO DAILY 12/19/20 Previous Rx's Medication Instructions Recorded apixaban 5 mg tablet 5 mg PO BID #90 tab 01/30/21 flecainide 50 mg tablet 50 mg PO BID 90 Days #180 tab 01/30/21 metoprolol succinate 25 mg 25 mg PO DAILY #90 tab 01/30/21 tablet,extended release 24 hr DS: Summary Hospital Course Hospital Course: Chief Complaint: Palpitations 45-year-old female with a past medical history of asthma presented to the hospital with a chief complaint of palpitations. Patient mentions that today she went for walking and after she came back she noticed palpitations. Denies any associated chest pain lightheadedness dizziness or shortness of breath. Mentions her her asthma is stable. Patient also reports that she has a very remote history of appy on time and which resolved. Currently denies any fever chills cough. Denies any recent travel or sick contacts. Review of all other systems is negative except mentioned above ER course: Per ER team patient was noted to be in AFib with rapid ventricular response: Patient was given diltiazem with mild improvement in heart rate. Spoke to Cardiology who recommended admission for further evaluation. Hospital course: Patient was admitted for atrial fibrilation with rapid ventricular response and underwent PAYAM guided cardioversion by Dr. Noguera with zoroastrian to sinus rythm and subsequently given Eliquis and Flecainide Final diagnosis: New onset of atrial fibrilation with rapid ventricular Time Spent with Patient Time attestation: Total time spent providing and/or coordinating discharge services: Discharge coordination time: Greater than 30 minutes Quality: Stroke Does the patient have a stroke diagnosis?: No DS: Data Data Completed and Pending Completed studies during hospitalization [Text1]: Procedures [facility] of Cardiac Rhythm, Single (11/23/20) Discharge Plan Discharge Attending physician on admission: Fly Noguera Primary Care Provider: Yadi Escalera Patient Disposition: Home Health Service Referrals: Yadi Escalera MD [Primary Care Provider] - 1 Week Discharge Medications: No Action Eliquis 5 mg tablet 5 mg PO BID Qty: 90 RF: 4 flecainide 50 mg tablet 50 mg PO BID 90 Days Qty: 180 RF: 3 metoprolol succinate 25 mg tablet extended release 24 hr 25 mg PO DAILY Qty: 90 RF: 3 oxybutynin chloride 10 mg tablet extended release 24hr 2 tab PO DAILY RF: 0 multivitamin Tablet 1 tab PO DAILY RF: 0 Hospital Course: Chief Complaint: Palpitations 45-year-old female with a past medical history of asthma presented to the hospital with a chief complaint of palpitations. Patient mentions that today she went for walking and after she came back she noticed palpitations. Denies any associated chest pain lightheadedness dizziness or shortness of breath. Mentions her her asthma is stable. Patient also reports that she has a very remote history of appy on time and which resolved. Currently denies any fever chills cough. Denies any recent travel or sick contacts. Review of all other systems is negative except mentioned above ER course: Per ER team patient was noted to be in AFib with rapid ventricular response: Patient was given diltiazem with mild improvement in heart rate. Spoke to Cardiology who recommended admission for further evaluation. Hospital course: Patient was admitted for atrial fibrilation with rapid ventr icular response and underwent PAYAM guided cardioversion by Dr. Noguera with zoroastrian to sinus rythm and subsequently given Eliquis and Flecainide Final diagnosis: New onset of atrial fibrilation with rapid ventricular
== END ==
PROVIDERS: PCP Internal Medicine; Visit Provider Internal Medicine Cardiovascular Disease
DX: I48.0 Paroxysmal atrial fibrillation (principal)
CPT/HCPCS: 93005; 99212

== ENCOUNTER → 2021-01-10 15:42 | Outpatient (BNVA) | payer OTHER, SELFPAY | PROVIDERS: Visit Provider Obstetrics & Gynecology | DX: Z30.431 Encounter for routine checking of intrauterine contraceptive device (principal) | CPT/HCPCS: Q3014 ==

== ENCOUNTER → 2021-02-13 15:10 | Outpatient (BNVA) | payer OTHER, SELFPAY | PROVIDERS: PCP Internal Medicine; Referring Provider Internal Medicine; Visit Provider Internal Medicine Cardiovascular Disease | DX: I48.0 Paroxysmal atrial fibrillation (principal); Z79.899 Other long term (current) drug therapy | CPT/HCPCS: 99212 ==

== ENCOUNTER → 2021-03-28 15:26 | Outpatient (BNVA) | payer OTHER, SELFPAY | PROVIDERS: PCP Internal Medicine; Visit Provider Advanced Practice Midwife ==

== ENCOUNTER → 2021-05-23 08:47 | Outpatient (BNVA) | payer OTHER, SELFPAY | PROVIDERS: PCP Internal Medicine; Visit Provider Obstetrics & Gynecology ==

== ENCOUNTER → 2021-06-15 15:04 | Outpatient (BNVA) | payer OTHER, SELFPAY | PROVIDERS: PCP Internal Medicine; Referring Provider Internal Medicine; Visit Provider Internal Medicine Cardiovascular Disease | DX: I48.0 Paroxysmal atrial fibrillation (principal); N32.81 Overactive bladder; G47.33 Obstructive sleep apnea (adult) (pediatric); Z87.891 Personal history of nicotine dependence; Z98.890 Other specified postprocedural states | CPT/HCPCS: 93005; 99212 ==

== ENCOUNTER 2021-06-21 09:55 | Outpatient (REF) | payer OTHER, SELFPAY ==
[2021-06-21 16:19] LABS: CT PCR NOT DETECTED (Not Detect.); NG PCR NOT DETECTED (Not Detect.)
== END 2021-06-21 09:56 | disposition home or self-care (01) ==
LOC: HO.LAB 09:55
PROVIDERS: Visit Provider Advanced Practice Midwife
DX: Z30.433 Encounter for removal and reinsertion of intrauterine contraceptive device (principal); Z87.891 Personal history of nicotine dependence
CPT/HCPCS: 58300; 58301; 81025; 87491; 87591

== ENCOUNTER → 2021-07-12 11:29 | Outpatient (BNVA) | payer OTHER, SELFPAY | PROVIDERS: Visit Provider Advanced Practice Midwife | DX: Z30.431 Encounter for routine checking of intrauterine contraceptive device (principal); N90.7 Vulvar cyst | CPT/HCPCS: 99212 ==

== ENCOUNTER → 2021-07-26 13:19 | Outpatient (BNVA) | payer OTHER, SELFPAY | PROVIDERS: Visit Provider Advanced Practice Midwife | DX: Z30.431 Encounter for routine checking of intrauterine contraceptive device (principal); N90.7 Vulvar cyst | CPT/HCPCS: 99212 ==

== ENCOUNTER → 2022-01-11 15:26 | Outpatient (BNVA) | payer OTHER, SELFPAY | PROVIDERS: PCP Nurse Practitioner Pediatrics; Visit Provider Internal Medicine Cardiovascular Disease | DX: I48.0 Paroxysmal atrial fibrillation (principal) | CPT/HCPCS: 93005; 99212 ==

== ENCOUNTER 2022-04-06 18:11 | Emergency (ER) | payer OTHER, SELFPAY | END 2022-04-06 19:34 | disposition left against medical advice (07) | PROVIDERS: Emergency Provider Emergency Medicine; PCP Internal Medicine | DX: M25.511 Pain in right shoulder (principal) ==

== ENCOUNTER 2022-04-07 07:43 | Emergency (ER) | payer OTHER, SELFPAY ==
[2022-04-07 07:48] VITALS: BP 160/92; PULSE 69; RESP 20; TEMP 36.1; O2SAT 97; BMI 47.9
--- NOTE | 2022-04-07 09:12 | ED_ITS ---
HPI - Extremity Problem General Chief complaint: Extremity Problem Stated complaint: neck pain/shoulder pain/arm pain Time Seen by Provider: 04/07/22 09:11 Source: patient Mode of arrival: ambulatory History of Present Illness HPI Narrative: 46-year-old female with history of atrial fibrillation on anticoagulation and denies any shortness of breath or chest pain/palpitations presents with having gotten up from the couch in stating that she then developed discomfort that is radiating from the base of her neck out across her shoulder and down her right upper extremity. Patient states the pain is been ongoing for 8 days, denies diabetes or thyroid issues. Related Data Home Medications Medication Instructions Recorded Confirmed multivitamin 1 tab PO DAILY 12/19/20 01/11/22 levonorgestrel 20 mcg/24 hours (7 intrauterine 07/12/21 01/11/22 yrs) 52 mg intrauterine device (Mirena) Previous Rx's Medication Instructions Recorded apixaban 5 mg tablet (Eliquis) 5 mg PO BID #90 tabs 10/11/21 flecainide 50 mg tablet 50 mg PO Q12H #60 tabs 01/11/22 metoprolol succinate 25 mg 25 mg PO DAILY #90 tabs 01/26/22 tablet,extended release 24 hr cyclobenzaprine 5 mg tablet 5 mg PO BEDTIME PRN muscle spasm 04/07/22 #7 tabs ondansetron HCl 4 mg tablet 4 mg PO Q8H PRN nausea and 04/07/22 vomiting #4 tabs Allergies Allergy/AdvReac Type Severity Reaction Status Date / Time No Known Allergies Allergy Verified 01/11/22 15:40 [No Known Allergies*] Review of Systems Review of Systems: Pertinent positives and negatives as stated in HPI 10 point review of systems is otherwise negative. [facility] Past Medical History Source: nursing notes reviewed Medical History Asthma Atrial fibrillation Sleep apnea, obstructive Surgical History No pertinent past surgical history Family History Family History Other Adopted Social History Social History Household Members: Spouse and Children Housing: House Do you presently have visiting nurse or other home services: No Alcohol intake: current Alcohol intake frequency: holidays/special occasions only Patient Tobacco Use Status: Former Tobacco user Quit Date: 2005 Years Smoked: 15 +/- Advance Directives: No Advance Directives Information Provided: No service: No Current occupational status: unemployed Physical Exam Vital Signs: Vital Signs: Last Vital Signs Temp 96.9 F 04/07/22 07:48 Pulse 69 04/07/22 07:48 Resp 20 04/07/22 07:48 BP 160/92 H 04/07/22 07:48 Pulse Ox 97 04/07/22 07:48 O2 Del Method 04/07/22 07:48 BMI result Body Mass Index 47.9 VITAL SIGNS: Reviewed. GENERAL: Well developed, well nourished, in no acute distress. HEAD: Normocephalic/atraumatic EYES: PERRLA, EOMI EARS: Ext canals without abnormality OROPHARYNX: no oral lesions noted, posterior pharynx clear NECK: Supple, no adenopathy, no midline cervical spine tenderness LUNGS: Normal breath sounds. No adventitious sounds or accessory muscle use. SpO2<97> CARDIOVASCULAR: Irregular without noted murmurs, no JVD or lower extremity edema. ABDOMEN: Soft, non-tender, non-distended with bowel sounds. No rigidity. No guarding. No palpable masses or hernias noted MUSCULOSKELETAL: Tenderness noted to right shoulder with evidence to suggest muscle spasm, no deformities or effusions noted on gross inspection. EXTREMITIES: No cyanosis, clubbing or edema. SKIN: Inspection of the skin reveals no rashes NEUROLOGIC: Alert and oriented x 4. 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 No respiratory your cardiac complaints at this time, patient treated with Tylenol and lidocaine patch as she is on chronic anticoagulation. Patient states that she is driving herself and was informed that the muscle relaxant would be sent to the pharmacy. Discharge Plan Discharge Clinical Impression: Muscle spasm, Cervical radiculopathy Patient Disposition: Home, Self-Care Instructions: Cervical Radiculopathy (ED), Muscle Spasm (ED) Additional Instructions: 1. Resume all home medications as prescribed. 2. Tylenol 1000 mg, orally, every 6 hours as needed for pain control. 3. Lidocaine patch apply to the area of maximal tenderness as directed on the outside packaging. 4. Follow-up with your primary care provider [facility] for re-evaluation. Return to the ER for worsening symptoms. Prescriptions: New cyclobenzaprine 5 mg tablet 5 mg PO BEDTIME PRN (Reason: muscle spasm) Qty: 7 0RF ondansetron HCl 4 mg tablet 4 mg PO Q8H PRN (Reason: nausea and vomiting) Qty: 4 0RF No Action Eliquis 5 mg tablet 5 mg PO BID Qty: 90 3RF metoprolol succinate 25 mg tablet extended release 24 hr 25 mg PO DAILY Qty: 90 3RF Protocol: Hold for SBP/HR < HOLD for SBP < : 90 HOLD for HR < : 60 multivitamin Tablet 1 tab PO DAILY Mirena 20 mcg/24 hours (7 yrs) 52 mg intrauterine device intrauterine flecainide 50 mg tablet 50 mg PO Q12H Qty: 60 4RF Referrals: Yadi Escalera MD [Primary Care Provider] - Stand Alone Forms: Work/School Release
[2022-04-07] MEDS: Lidocaine 4 % Patch ADH..PATCH 1 PATCH TRANSDERMA ×2 (09:21→09:38)
[2022-04-07] MEDS: Acetaminophen 325 MG TABLET 975 MG PO (09:21)
== END 2022-04-07 09:44 | disposition home or self-care (01) ==
PROVIDERS: Emergency Provider Student in an Organized Health Care Education/Training Program; PCP Internal Medicine
DX: M62.838 Other muscle spasm (principal); M54.12 Radiculopathy, cervical region
CPT/HCPCS: 99283

== ENCOUNTER → 2022-09-17 15:47 | Outpatient (BNVA) | payer OTHER, SELFPAY | PROVIDERS: PCP Internal Medicine; Referring Provider Internal Medicine; Visit Provider Internal Medicine Cardiovascular Disease | DX: I48.0 Paroxysmal atrial fibrillation (principal); J45.909 Unspecified asthma, uncomplicated; Z79.01 Long term (current) use of anticoagulants | CPT/HCPCS: 93005; 99212 ==

== ENCOUNTER → 2023-01-24 15:19 | Outpatient (BNVA) | payer OTHER, SELFPAY | PROVIDERS: PCP Internal Medicine; Referring Provider Internal Medicine; Visit Provider Internal Medicine Cardiovascular Disease | DX: I48.0 Paroxysmal atrial fibrillation (principal); E66.01 Morbid (severe) obesity due to excess calories; Z68.43 Body mass index [BMI] 50.0-59.9, adult; Z79.01 Long term (current) use of anticoagulants | CPT/HCPCS: 93005; 99212 ==

== ENCOUNTER → 2023-02-21 15:50 | Outpatient (BNVA) | payer OTHER, SELFPAY | PROVIDERS: PCP Internal Medicine; Visit Provider Physician Assistant ==

== ENCOUNTER 2023-03-28 14:05 | Outpatient (AMB) | payer OTHER, SELFPAY ==
--- NOTE | 2023-03-28 14:08 | MHC.OFFVISWM ---
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 Her goal is to be like the person she is on the inside . MALENA 9+, has been in therapy all my life including now. Has psychiatrist. . She reports first being concerned about her weight her whole life. . She has tried multiple methods of weight loss including keto and various diets. without permanent results. She lives with life partner and her teenage child. 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 Sees Dr Edgar for Afib, last appt on 01/24/23 - referred here. Afib in good control now. Diagnosed with KELLY many years ago, no longer has CPAP machine. Had [place] a few months ago through [facility] [place] [place], now needs titration study. She wakes at: 5 am, falls asleep on couch atbout 8pm- goes to bed 9pm, falls asleep 10 pm - wakes up alot. Breakfast: 7:30 am - oatmeal with honey and nuts and berries - usually 3 eggs with sometimes with spinach and peppers, occasionally with bread. water 9:30 am - yogurt with honey and coconut and almonds Lunch: 1pm -salad with tuna or chicken, dressing..Fast food take out 2x/month. water Dinner: 5- 6:30 pm - spaghetti and sausage, last night steak and zucchini. Vegetables 2-3 d/wk. Carb once per week. water After dinner: ice cream sandwich OR gummies/fruit snacks. Other snacks:may have another sweet snack during the day. Liquids:soda rarely, fruit juice rarely Alcohol intake: once per week, Hard 4- 6 seltzer, tobacco:none, marijuana: none Exercise: none. no equipment or membership Last mammogram: never. Last pap smear: up to date control method: IUD MALENA:9 ESS: 9 GERD:16 QOL:113 PFS Medical History (Updated 03/28/23 @ 15:29 by Sweta Villasenor PA-C) Asthma Atrial fibrillation Sleep apnea, obstructive Surgical History No pertinent past surgical history Family History Other Adopted Social History Household Members: Spouse and Children Housing: House Do you presently have visiting nurse or other home services: No Alcohol intake: current Alcohol intake frequency: holidays/special occasions only Patient Tobacco Use Status: Former Tobacco user Quit Date: 2005 Years Smoked: 15 +/- service: No Current occupational status: unemployed Physical Exam Const General: cooperative, no acute distress and well developed Nutritional Appearance: obese Orientation/consciousness: patient oriented x3 HEENT Head: Yes normal to inspection Neck Neck: Yes normal visual inspection Thyroid: Thyroid normal Resp Effort & Inspection: normal respiratory effort Auscultation: clear to auscultation bilaterally Cardio Rate: regular rate Rhythm: regular rhythm Heart sounds: S1 normal heart sound present, S2 normal heart sound present and no murmurs GI Inspection: No distended and Yes obesity Palpation (GI): Soft to palpation, nontender and no guarding Skin General skin exam: no rashes or lesions noted and other (warm and dry) Wounds: no wounds Hair: normal Neuro General: patient oriented x3 Extrem General: Yes no pedal edema and Yes no calf tenderness Psych Attitude: cooperative Thought process: Normal thought process present Thought content: Normal thought content present Insight: Good insight present (Psych) Judgement: Good judgement present (Psych) Assessment & Plan Assessment & Plan (1) Morbid obesity: Code(s): E66.01 - Morbid (severe) obesity due to excess calories Plan: This is a 47 yo woman with morbid obesity, KELLY (untreated) and A fib who will start SWL program to prepare for bariatric surgery. Blood work, h pylori , CXR, ECG, Abd ULS and UGI have been ordered. She is being scheduled for RD and BH initial consultations. She will start SWL classes and watch at 3 classes before her next appt with Kerrie. We had a long discussion regarding her need to use CPAP and the danger to her along with Afib. I will get the result of her SS from [facility] [place] [place] and discuss further with you - as of today she is declining to get titration study/\. 1. Adequate sleep of 7-8 hours per night discussed, discussed sleep hygeine 2. Healthy meal plan - stop all sweetened drinks, limit ETOH to 2 hard seltzers on the weekend. States has financial issues for meals All meals/MR's need to take 20 minutes to complete 7am - 3 eggs with 1 cup vegetables OR Shake/bar/yogurt 10 am - 30 gram shake 1 pm- bar or yogurt 4pm - shake 6 pm- dinner of 6 oz lean protein, 8 oz vegetable, 1 serving fruit Exercise - Cardio 5 d week start with LS 1 mile videos 5d/week The importance of avoiding and breast feeding for at least 18 months after bariatric surgery was discussed in the information session and was reinforced today. Pt will purchase body composition analyzer (recommended list given to patient) and weight herself weekly. Next appt with me in 3 weeks. Text me with any questions and weekly weights. Patient is morbidly obese and is not considered stable at this time.?I spent a total of 60 minutes reviewing/updating records, examining the patient and counseling the patient on weight management as detailed above. (2) Atrial fibrillation: Comment: Code(s): I48.91 - Unspecified atrial fibrillation Qualifiers: Atrial fibrillation type: paroxysmal Qualified Code(s): I48.0 - Paroxysmal atrial fibrillation (3) Asthma: Code(s): J45.909 - Unspecified asthma, uncomplicated (4) Sleep apnea, obstructive: Code(s): G47.33 - Obstructive sleep apnea (adult) (pediatric) Orders: Orders Vitamin B12 and Folate Today E66.01 - Morbid (severe) obesity due to excess calories, G47.33 - Obstructive sleep apnea (adult) (pediatric), I48.91 - Unspecified atrial fibrillation, J45.909 - Unspecified asthma, uncomplicated, Z01.818 - Encounter for other preprocedural examination Comprehensive Met. Panel Today E66.01 - Morbid (severe) obesity due to excess calories, G47.33 - Obstructive sleep apnea (adult) (pediatric), I48.91 - Unspecified atrial fibrillation, J45.909 - Unspecified asthma, uncomplicated, Z01.818 - Encounter for other preprocedural examination C Reactive Protein Today E66.01 - Morbid (severe) obesity due to excess calories, G47.33 - Obstructive sleep apnea (adult) (pediatric), I48.91 - Unspecified atrial fibrillation, J45.909 - Unspecified asthma, uncomplicated, Z01.818 - Encounter for other preprocedural examination Ferritin Today E66.01 - Morbid (severe) obesity due to excess calories, G47.33 - Obstructive sleep apnea (adult) (pediatric), I48.91 - Unspecified atrial fibrillation, J45.909 - Unspecified asthma, uncomplicated, Z01.818 - Encounter for other preprocedural examination Hemoglobin A1c Today E66.01 - Morbid (severe) obesity due to excess calories, G47.33 - Obstructive sleep apnea (adult) (pediatric), I48.91 - Unspecified atrial fibrillation, J45.909 - Unspecified asthma, uncomplicated, Z01.818 - Encounter for other preprocedural examination Insulin Today E66.01 - Morbid (severe) obesity due to excess calories, G47.33 - Obstructive sleep apnea (adult) (pediatric), I48.91 - Unspecified atrial fibrillation, J45.909 - Unspecified asthma, uncomplicated, Z01.818 - Encounter for other preprocedural examination IRON PROFILE Today E66.01 - Morbid (severe) obesity due to excess calories, G47.33 - Obstructive sleep apnea (adult) (pediatric), I48.91 - Unspecified atrial fibrillation, J45.909 - Unspecified asthma, uncomplicated, Z01.818 - Encounter for other preprocedural examination Lipid Panel Today E66.01 - Morbid (severe) obesity due to excess calories, G47.33 - Obstructive sleep apnea (adult) (pediatric), I48.91 - Unspecified atrial fibrillation, J45.909 - Unspecified asthma, uncomplicated, Z01.818 - Encounter for other preprocedural examination PTHI Today E66.01 - Morbid (severe) obesity due to excess calories, G47.33 - Obstructive sleep apnea (adult) (pediatric), I48.91 - Unspecified atrial fibrillation, J45.909 - Unspecified asthma, uncomplicated, Z01.818 - Encounter for other preprocedural examination TSH reflex Free T4 Today E66.01 - Morbid (severe) obesity due to excess calories, G47.33 - Obstructive sleep apnea (adult) (pediatric), I48.91 - Unspecified atrial fibrillation, J45.909 - Unspecified asthma, uncomplicated, Z01.818 - Encounter for other preprocedural examination Vitamin A Today E66.01 - Morbid (severe) obesity due to excess calories, G47.33 - Obstructive sleep apnea (adult) (pediatric), I48.91 - Unspecified atrial fibrillation, J45.909 - Unspecified asthma, uncomplicated, Z01.818 - Encounter for other preprocedural examination Vitamin B1 Today E66.01 - Morbid (severe) obesity due to excess calories, G47.33 - Obstructive sleep apnea (adult) (pediatric), I48.91 - Unspecified atrial fibrillation, J45.909 - Unspecified asthma, uncomplicated, Z01.818 - Encounter for other preprocedural examination Vitamin D 25-OH Total Today E66.01 - Morbid (severe) obesity due to excess calories, G47.33 - Obstructive sleep apnea (adult) (pediatric), I48.91 - Unspecified atrial fibrillation, J45.909 - Unspecified asthma, uncomplicated, Z01.818 - Encounter for other preprocedural examination Zinc Today E66.01 - Morbid (severe) obesity due to excess calories, G47.33 - Obstructive sleep apnea (adult) (pediatric), I48.91 - Unspecified atrial fibrillation, J45.909 - Unspecified asthma, uncomplicated, Z01.818 - Encounter for other preprocedural examination ECG 12 lead EKG Today E66.01 - Morbid (severe) obesity due to excess calories, G47.33 - Obstructive sleep apnea (adult) (pediatric), I48.91 - Unspecified atrial fibrillation, J45.909 - Unspecified asthma, uncomplicated, Z01.818 - Encounter for other preprocedural examination FL upper GI w air Today E66.01 - Morbid (severe) obesity due to excess calories, G47.33 - Obstructive sleep apnea (adult) (pediatric), I48.91 - Unspecified atrial fibrillation, J45.909 - Unspecified asthma, uncomplicated, Z01.818 - Encounter for other preprocedural examination Complete Blood Count Auto Diff Today E66.01 - Morbid (severe) obesity due to excess calories, G47.33 - Obstructive sleep apnea (adult) (pediatric), I48.91 - Unspecified atrial fibrillation, J45.909 - Unspecified asthma, uncomplicated, Z01.818 - Encounter for other preprocedural examination H Pylori Breath Test Today E66.01 - Morbid (severe) obesity due to excess calories, G47.33 - Obstructive sleep apnea (adult) (pediatric), I48.91 - Unspecified atrial fibrillation, J45.909 - Unspecified asthma, uncomplicated, Z01.818 - Encounter for other preprocedural examination US abdomen comp w elastography Today E66.01 - Morbid (severe) obesity due to excess calories, G47.33 - Obstructive sleep apnea (adult) (pediatric), I48.91 - Unspecified atrial fibrillation, J45.909 - Unspecified asthma, uncomplicated, Z01.818 - Encounter for other preprocedural examination XR chest 2V Today E66.01 - Morbid (severe) obesity due to excess calories, G47.33 - Obstructive sleep apnea (adult) (pediatric), I48.91 - Unspecified atrial fibrillation, J45.909 - Unspecified asthma, uncomplicated, Z01.818 - Encounter for other preprocedural examination Referrals Behavioral Health Referral E66.01 - Morbid (severe) obesity due to excess calories, G47.33 - Obstructive sleep apnea (adult) (pediatric), I48.91 - Unspecified atrial fibrillation, J45.909 - Unspecified asthma, uncomplicated, Z01.818 - Encounter for other preprocedural examination Nutrition/Dietitian Referral E66.01 - Morbid (severe) obesity due to excess calories, G47.33 - Obstructive sleep apnea (adult) (pediatric), I48.91 - Unspecified atrial fibrillation, J45.909 - Unspecified asthma, uncomplicated, Z01.818 - Encounter for other preprocedural examination Coding Level of Care Code New Pt Level 5 (56422) Diagnoses Morbid obesity E66.01 Atrial fibrillation I48.0 Atrial fibrillation type: paroxysmal Asthma J45.909 Sleep apnea, obstructive G47.33
[2023-03-28 14:10] VITALS: BP 146/64; PULSE 82; TEMP 35.8; O2SAT 94; BMI 51.1
== END 2023-03-28 15:34 | disposition home or self-care (01) ==
PROVIDERS: PCP Internal Medicine; Visit Provider Physician Assistant
DX: E66.01 Morbid (severe) obesity due to excess calories (principal); Z68.43 Body mass index [BMI] 50.0-59.9, adult; I48.0 Paroxysmal atrial fibrillation; G47.33 Obstructive sleep apnea (adult) (pediatric)
CPT/HCPCS: 99205

== ENCOUNTER → 2023-03-28 14:05 | Outpatient (BNVA) | payer OTHER, SELFPAY | PROVIDERS: PCP Internal Medicine; Visit Provider Physician Assistant | DX: E66.01 Morbid (severe) obesity due to excess calories (principal); J45.909 Unspecified asthma, uncomplicated; G47.33 Obstructive sleep apnea (adult) (pediatric); I48.0 Paroxysmal atrial fibrillation; Z68.43 Body mass index [BMI] 50.0-59.9, adult; Z11.0 Encounter for screening for intestinal infectious diseases | CPT/HCPCS: 99202; 99211 ==

== ENCOUNTER 2023-03-29 17:58 | Outpatient (REF) | payer OTHER, SELFPAY ==
[2023-03-31 11:42] LABS: H Pylori Breath Test Negative (Negative)
== END 2023-03-29 17:59 | disposition home or self-care (01) ==
LOC: HO.LNP 17:58
PROVIDERS: Visit Provider Physician Assistant
DX: Z01.818 Encounter for other preprocedural examination (principal); E66.01 Morbid (severe) obesity due to excess calories; G47.33 Obstructive sleep apnea (adult) (pediatric); I48.91 Unspecified atrial fibrillation; J45.909 Unspecified asthma, uncomplicated
CPT/HCPCS: 83013

== ENCOUNTER 2023-04-09 16:00 | Outpatient (AMB) | payer OTHER, SELFPAY ==
--- NOTE | 2023-04-09 15:51 | A.OFFVIS_ITS ---
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 7:30 3 eggs with vegetables 10:30am Using an organic protein powder from [employer] (150kcal, 22g protein)? with skim? 1pm yogurt or bar 3:30pm another shake dinner: protein and veg, doesn't have a food scale I live [place] to 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 She wants to continue to meet with this person. Pt states she wants her surgery as soon as possible. Wants to have more food based meals now. We had a long discussion about post op diet expectations and the reason for protein shakes now Dietary counseling reduction Diagnosis Nutrition problem #1 overweight/obesity As related to (etiology) #1 excess energy intake and physical inactivity As evidenced by (sign/symptom) #1 high BMI Monitoring/Goals Nutrition problem monitoring total energy intake, level of knowledge/skill, total PRO intake, total CHO intake, weight and oral fluids Outcome progress progressing Learning/Education Readiness to learn excellent Stages of change action Educational materials provided Yes Most Recent Diabetes Results: No Data to Display [facility] Medical History (Updated 03/28/23 @ 15:29 by Sweta Villasenor PA-C) Asthma Atrial fibrillation Sleep apnea, obstructive Surgical History No pertinent past surgical history Family History Other Adopted Social History Household Members: Spouse and Children Housing: House Do you presently have visiting nurse or other home services: No Alcohol intake: current Alcohol intake frequency: holidays/special occasions only Patient Tobacco Use Status: Former Tobacco user Quit Date: 2005 Years Smoked: 15 +/- service: No Current occupational status: unemployed Assessment & Plan Assessment & Plan (1) Morbid obesity: Code(s): E66.01 - Morbid (severe) obesity due to excess calories Patient Instructions: Answered all pts questions today regarding post op diet expectations, rational for nutrition plan/recommendations. She will continue her nutrition plan - OK'ed having a slice of 647 bread with 2 eggs for breakfast and we talked about how that will change post op and why. She will complete her online classes, and follow up in 4 weeks Telehealth Telehealth Location of provider rendering services: practice address Location of patient: address on file Patient Identification confirmed using: Name, : Yes Telehealth method: voice only Patient verbally consented to treatment: Yes Patient verbally consented to billing insurance company: Yes Patient informed of any privacy concerns related to visit: Yes Minutes spent on Phone/Video with Pt.: 45 Coding Level of Care Code Nutr Indiv Intake (37024) Diagnoses Morbid obesity E66.01 Time Spent (min) 45
== END 2023-04-09 16:34 | disposition home or self-care (01) ==
LOC: HO.HBS 16:00
PROVIDERS: PCP Internal Medicine; Visit Provider Dietitian, Registered
DX: E66.01 Morbid (severe) obesity due to excess calories (principal)

== ENCOUNTER → 2023-04-09 16:00 | Outpatient (BNVA) | payer OTHER, SELFPAY | PROVIDERS: PCP Internal Medicine; Visit Provider Dietitian, Registered | DX: E66.01 Morbid (severe) obesity due to excess calories (principal); Z71.3 Dietary counseling and surveillance | CPT/HCPCS: 97802 ==

== ENCOUNTER 2023-04-19 14:02 | Inpatient (IN) | payer OTHER, SELFPAY ==
--- NOTE | ~2023-04-19 | US_ITS ---
EXAMINATION: US RETROPERITONEAL LIMITED (RENAL ONLY) CLINICAL INFORMATION: Flank pain. Hematuria.. COMPARISON: Previous CT of the abdomen and pelvis from 2019 TECHNIQUE: Grayscale and color imaging of the kidneys exam slightly limited due to body habitus. FINDINGS: RIGHT KIDNEY: 11 x 5 x 6 cm (SAG x AP x TRV). The kidney is normal in size, contour, and echogenicity. Renal cortical thickness is normal. No calculi or focal parenchymal lesions. No hydronephrosis. LEFT KIDNEY: 12 x 6 x 6 cm (SAG x AP x TRV). The kidney is normal in size, contour, and echogenicity. Renal cortical thickness is normal. No calculi or focal parenchymal lesions. No hydronephrosis. There is a gallstone. US/US renal BI IMPRESSION: Limited but unremarkable renal ultrasound. Gallstone.
--- NOTE | ~2023-04-19 | CT_ITS ---
EXAMINATION: CT ABDOMEN AND PELVIS WITH CONTRAST CLINICAL INFORMATION: Right lower quadrant pain COMPARISON: CT scan abdomen pelvis 12/08/2018 TECHNIQUE: Multidetector volumetric images were obtained from the superior aspect of the liver through the pubic symphysis following administration 85 mL of Omnipaque 350 intravenous contrast. Sagittal and coronal reformatted images were obtained on the technologist's workstation. Oral contrast: No This CT examination was performed using dose optimization techniques as appropriate, variously including the following: *Automated exposure control *Adjustment of mA and/or kV according to patient size (this includes techniques or standardized protocols for targeted exams where dose is matched to indication/reason for exam; i.e. extremities or head) *Use of iterative reconstruction technique DLP: 1165 mGy-cm FINDINGS: LUNG BASES: The visualized lung bases are unremarkable. LIVER, GALLBLADDER, AND BILIARY TREE: The liver is normal in size, shape, and attenuation. No focal hepatic lesion or biliary ductal dilatation is present. The gallbladder is unremarkable with no evidence of radiopaque gallstones, gallbladder wall thickening, or obvious pericholecystic inflammatory changes. PANCREAS: Unremarkable. SPLEEN: Unremarkable. ADRENAL GLANDS: Unremarkable. KIDNEYS AND URETERS: The kidneys are normal in size, shape, and attenuation. No hydronephrosis, hydroureter, or calculi seen. No perinephric stranding. BLADDER: Unremarkable. GASTROINTESTINAL TRACT: The appendix is edematous and enlarged edema in the surrounding mesentery consistent with appendicitis. Appendix measures 1.3 cm transverse. No evidence of abscess or perforation. The small bowel and large bowel loops are unremarkable stomach is normal. ABDOMINAL WALL: Small fat-containing umbilical hernia LYMPH NODES: Normal. VASCULAR: Unremarkable. PELVIC VISCERA: Uterus is anteverted. IUD in the endometrial cavity. 3 cm dominant follicle in the right adnexa. No follow-up imaging recommended. OSSEOUS STRUCTURES: Unremarkable. CT/CT abdomen pelvis w IV con IMPRESSION: Appendicitis. Fleischner guidelines were followed.
[2023-04-19 14:37] VITALS: BP 135/85; PULSE 86; RESP 19; TEMP 36.6; O2SAT 95; BMI 48.6
--- NOTE | 2023-04-19 14:39 | ED_ITS ---
HPI - General Adult General Chief complaint: Abdominal Pain Stated complaint: ? Kidney Stone Time Seen by Provider: 04/19/23 19:50 Source: patient Mode of arrival: ambulatory Limitations: no limitations History of Present Illness HPI narrative: 47-year-old female with history of asthma, AFib on Eliquis presents to the ER with complaints of right lower quadrant abdominal pain which began yesterday. Patient also noticed some bloody urine and had nausea. No vomiting, diarrhea, constipation, fevers or chills. Patient denies any previous abdominal surgical history. Related Data Home Medications Medication Instructions Recorded Confirmed levonorgestrel 21 mcg/24 hours (8 intrauterine 07/12/21 03/28/23 yrs) 52 mg intrauterine device (Mirena) Previous Rx's Medication Instructions Recorded montelukast 10 mg tablet 10 mg PO BEDTIME #60 tabs 09/17/22 apixaban 5 mg tablet 5 mg PO BID #180 tabs 11/14/22 flecainide 50 mg tablet 50 mg PO BID #180 tabs 11/21/22 furosemide 20 mg tablet (Lasix) 20 mg PO DAILY PRN edema #30 tabs 01/24/23 metoprolol succinate 25 mg 25 mg PO DAILY #90 tabs 02/12/23 tablet,extended release 24 hr Allergies Allergy/AdvReac Type Severity Reaction Status Date / Time No Known Allergies Allergy Verified 03/28/23 14:11 [No Known Allergies*] Review of Systems Review of Systems: Yes all other systems are reviewed and are negative Constitutional: Constitutional: Reports no additional constitutional complaints, Denies body ache(s), Denies chills, Denies fever(s), Denies headache(s) and Denies weakness Eyes: Eyes: Reports no additional eye complaints and Denies change in vision ENT: Reports system reviewed and no additional complaints, except as documented, Denies dizziness, Denies headache(s), Denies nasal congestion, Denies nasal discharge and Denies neck pain Cardiovascular: Cardiovascular: Reports no additional cardiovascular complaints, Denies chest pain, Denies leg edema and Denies dyspnea Respiratory: Respiratory: Reports no additional respiratory complaints, Denies cough and Denies dyspnea Gastrointestinal: Gastrointestinal: Reports no additional gastrointestinal complaints, Reports abdominal pain, Denies diarrhea, Reports nausea and Denies vomiting Genitourinary: Genitourinary: Reports no additional female genitourinary complaints, Reports hematuria and Denies urinary incontinence Musculoskeletal: Musculoskeletal: Reports no additional musculoskeletal complaints, Denies back pain, Denies arthralgias, Denies joint swelling, Denies neck pain, Denies numbness and Denies tingling Integumentary/Breasts: Skin/Breast: Reports system reviewed and no additional complaints, except as docu and Denies rash Neurologic: Reports system reviewed and no additional complaints, except as documented, Denies dizziness, Denies headache(s), Denies numbness, Denies tingling and Denies weakness PMFSH Past Medical History Attestation statement: The following information was validated with the patient. Source: old records reviewed and nursing notes reviewed Medical History Asthma Atrial fibrillation Sleep apnea, obstructive Surgical History No pertinent past surgical history Family History Family History Other Adopted Social History Social History Household Members: Spouse and Children Housing: House Do you presently have visiting nurse or other home services: No Alcohol intake: current Alcohol intake frequency: holidays/special occasions only Patient Tobacco Use Status: Former Tobacco user Quit Date: 2005 Years Smoked: 15 +/- Advance Directives: No Advance Directives Information Provided: No service: No Current occupational status: unemployed Physical Exam ED Vital Signs: Vital Signs - 24 hr 04/19/23 14:37 04/19/23 20:02 Temperature 97.8 F 97.4 F Pulse Rate 86 66 Respiratory Rate 19 18 Blood Pressure 135/85 140/71 H Pulse Oximetry 95 95 Oxygen Delivery Method Room Air Room Air BMI result Body Mass Index 48.6 Const General: cooperative, healthy appearing, comfortable and no acute distress Orientation/consciousness: patient oriented x3 Limitations: no limitations HENMT Head: Yes normal to inspection Ears: hearing grossly normal bilaterally Eyes General: appearance normal, both eyes and all related structures Pupils: Equal, round and reactive pupils present Neck Neck: Yes normal visual inspection, Yes full ROM, Yes no lymphadenopathy and Yes no meningeal signs Chest Chest palpation & inspection: normal inspection of the chest Resp Effort & Inspection: normal respiratory effort Auscultation: clear to auscultation bilaterally Cardio Rate: regular rate Rhythm: regular rhythm Peripheral pulses: Peripheral pulses 2+ throughout GI Inspection: Yes normal to inspection Palpation (GI): Soft to palpation, Tenderness to palpation present (GI) in the RLQ and with rebound tenderness and Guarding due to palpation present (GI) Auscultation: normal bowel sounds General: Yes no CVA tenderness Back/Spine/Pelvis Back: no CVA tenderness Thoracic/Lumbar Spine: thoracic and lumbar spine normal to inspection Skin General skin exam: no rashes or lesions noted Neuro General: patient oriented x3, moves all extremities and no meningeal signs Cranial nerves: Yes Equal, round and reactive pupils present Cognition (Neuro): normal cognition Gait exam (Neuro): Normal gait present Course Course Course Narrative: This is a rapid medical exam: Additional HPI, ROS, PE not included below will be deferred to primary provider. Patient is a 47-year-old female with history of afib, asthma, KELLY presenting to the emergency department with complaint of right flank/RLQ pain and hematuria since yesterday morning. States pain has been constant with an intermittent spasming. Reports nausea, denies vomiting. Saw PCP who referred pt here. Reports some intermittent diarrhea. Denies fevers. States pain is 10/10 currently. Abdomen soft and nontender, mild right CVA tenderness. Plan: UA, labs, U/S Reevaluation(s) Reevaluation #1: 2579-Ct shows acute appendicitis. I spoke to general surgery Dr. Duggan who will admit the patient to the surgical service with recommendations to initiate IV antibiotics. We discussed with the patient is currently anticoagulated with Eliquis. He is asking for the hospitalist to consult on the patient due to her medical history. I did inform Dr Hook of this. Medications Administered Discontinued Medications Generic Name Dose Route Start Last Admin Trade Name Freq PRN Reason Stop Dose Admin Sodium Chloride 1,000 mls @ 999 mls/hr 04/19/23 20:13 04/19/23 20:22 Ns IV 04/19/23 21:13 999 mls/hr .Q1H1M STA Administration Iohexol 85 ml 04/19/23 21:06 04/19/23 21:06 Iohexol 350 Mg/Ml 100 Ml Infus..Btl IV 04/19/23 21:07 85 ml ONCE ONE Administration Morphine Sulfate 4 mg 04/19/23 20:13 04/19/23 20:22 Morphine Sulfate 4 Mg/Ml Cartridge IVPUSH 04/19/23 20:14 4 mg ONCE ONE Administration Protocol Medical Decision Making Medical Decision Making [facility] Narrative: 47-year-old female here with right lower quadrant abdominal pain since yesterday. On exam patient has tenderness and guarding to the right lower quadrant with rebound. Will need labs, UA, CT. Patient will be given IV fluids and analgesia Differential Diagnosis Differential Diagnoses: The differential diagnosis associated with the presentation includes Appendicitis, renal colic, pyelonephritis Low concern for diverticulitis, ovarian torsion Admission/Observation Consideration of admission/observation: Escalation of care including admission/observation considered See course of care Consult Healthcare Provider Management of the patient was discussed with: Director Of Spa And Guest Experience General surgery-call placed for acute appy at [address] [facility] Lab Attestation statement: I reviewed the patient's lab results. I reviewed labs which show leukocytosis 04/19/23 17:19 04/19/23 17:19 Labs: Lab Results 04/19/23 04/19/23 04/19/23 Range/Units 17:19 17:19 19:57 WBC 15.1 H (4.8-10.8) X10*3/uL RBC 5.10 (4.20-5.50) X10*6/uL Hgb 14.6 (12.0-16.0) g/dl Hct 43.6 (37.0-47.0) % MCV 85.5 (80.0-98.0) fL MCH 28.6 (27.0-33.0) pg MCHC 33.5 (31.0-35.0) g/dl RDW 12.1 (11.0-16.0) % Plt Count 237 (160-400) X10*3/uL MPV 9.1 L (9.4-12.3) fL Immature Gran % (Auto) 0.3 (0.0-0.4) % Neut % (Auto) 81.3 H (45-73) % Lymph % (Auto) 11.4 L (20-40) % [place] % (Auto) 6.8 (2-11) % Eos % (Auto) 0.1 (0-4) % Baso % (Auto) 0.1 (0-2) % Lymph # (Auto) 1.7 (1.2-4.9) X10*3/uL [place] # (Auto) 1.0 (0.1-1.2) X10*3/uL Eos # (Auto) 0.0 (0.0-0.4) X10*3/uL Baso # (Auto) 0.0 (0.0-0.2) X10*3/uL Abs Immat Gran (auto) 0.05 H (0.00-0.03) X10*3/uL Absolute Neuts (auto) 12.3 H (2.0-8.3) x10*3/uL Absolute Nucleated RBC 0.000 (0.0-0.012) X10*3/uL Nucleated RBC % (auto) 0.0 (0.0-0.2) /100WBC Sodium 138 (135-145) mmol/L Potassium 4.3 D (3.3-5.1) mmol/L Chloride 107 (96-108) mmol/L Carbon Dioxide 23 (22-29) mmol/L Anion Gap 12 (12-20) BUN 9 (9-16) mg/dL Creatinine 0.83 (0.5-1.4) mg/dL Estim Creat Clear Calc 127.4 Estimated GFR > 60 Random Glucose 116 H (60-115) mg/dL Calcium 9.6 D (8.4-10.2) mg/dL Total Bilirubin 1.3 H (0.0-1.0) mg/dL AST 16 (5-31) U/L ALT 30 (0-31) U/L Alkaline Phosphatase 62 (39-117) U/L Total Protein 7.5 (6.5-8.0) g/dL Albumin 4.1 (3.5-5.0) g/dL Beta HCG, Quant < 2 mIU/mL Urine Color Dark Yellow Urine Appearance Cloudy Urine pH 6.0 (5.0-9.0) Ur Specific [place] 1.025 (1.005-1.025) Urine Protein Trace (Neg-Trace) mg/dL Urine Glucose (UA) Negative (Negative) mg/dL Urine Ketones 80 (Negative) mg/dL Urine Blood Moderate (2+) H (Negative) Urine Nitrite Negative (Negative) Ur Leukocyte Esterase Moderate (2+) H (Negative) Urine RBC 11-20 H (0-2) /HPF Urine WBC 21-50 H (0-5) /HPF Ur Squamous Epith Cells 6-10 (0-2) /HPF Urine Bacteria 4+ (None Seen) Hyaline Casts 0-2 (0-2) /LPF Independent Interpretation I performed an independent interpretation of an: CT Scan Interpretation: I indepedentely reviewed the ct scan and agree with the rad report @ 2134. At this time infection is suspected. Antibiotics ordered Radiology Impression Discussion of test interpretation with radiology: I have reviewed the radiologist's reading. Radiologist Impression: FINDINGS: LUNG BASES: The visualized lung bases are unremarkable.? LIVER, GALLBLADDER, AND BILIARY TREE: The liver is normal in size, shape, and attenuation. No focal hepatic lesion or biliary ductal dilatation is present. The gallbladder is unremarkable with no evidence of radiopaque gallstones, gallbladder wall thickening, or obvious pericholecystic inflammatory changes.? PANCREAS: Unremarkable.? SPLEEN: Unremarkable.? ADRENAL GLANDS: Unremarkable.? KIDNEYS AND URETERS: The kidneys are normal in size, shape, and attenuation. No hydronephrosis, hydroureter, or calculi seen. No perinephric stranding. ? BLADDER: Unremarkable.? GASTROINTESTINAL TRACT: The appendix is edematous and enlarged edema in the surrounding mesentery consistent with appendicitis. Appendix measures 1.3 cm transverse. No evidence of abscess or perforation. The small bowel and large bowel loops are unremarkable stomach is normal.? ABDOMINAL WALL: Small fat-containing umbilical hernia? LYMPH NODES: Normal. VASCULAR: Unremarkable. PELVIC VISCERA: Uterus is anteverted. IUD in the endometrial cavity. 3 cm dominant follicle in the right adnexa. No follow-up imaging recommended. OSSEOUS STRUCTURES: Unremarkable.? CT/CT abdomen pelvis w IV con IMPRESSION: Appendicitis. ? Fleischner guidelines were followed. Critical Care Time Critical Care Time Critical Care Time: Yes Total Critical Care Time: 60 Attestation: Re-evaluations for acute abdomen, discussion with General surgery for admission Discharge Plan Discharge Clinical Impression: Acute appendicitis Patient Disposition: Admitted As Inpatient
[2023-04-19 17:23] LABS: MANUAL DIFF FLAG NO
[2023-04-19 17:24] LABS: Basophils Percent Auto 0.1 % (0-2); Eosinophils Percent Auto 0.1 % (0-4); Hematocrit 43.6 % (37.0-47.0); Hemoglobin 14.6 g/dl (12.0-16.0); Imm Gran Abs Auto 0.05 X10*3/uL (0.00-0.03); Imm Gran Pct Auto 0.3 % (0.0-0.4); Lymphocytes Absolute Auto 1.7 X10*3/uL (1.2-4.9); Lymphocytes Percent Auto 11.4 % (20-40); Mean Corpuscular HGB Conc 33.5 g/dl (31.0-35.0); Mean Corpuscular Hemoglobin 28.6 pg (27.0-33.0); Mean Corpuscular Volume 85.5 fL (80.0-98.0); Mean Platelet Volume 9.1 fL (9.4-12.3); Monocytes Percent Auto 6.8 % (2-11); Neutrophils Absolute Auto 12.3 x10*3/uL (2.0-8.3); Neutrophils Percent Auto 81.3 % (45-73); Platelet Count 237 X10*3/uL (160-400); Red Cell Distribution Width 12.1 % (11.0-16.0); White Blood Count 15.1 X10*3/uL (4.8-10.8)
[2023-04-19 18:00] LABS: Alanine Aminotransferase 30 U/L (0-31); Albumin Level 4.1 g/dL (3.5-5.0); Alkaline Phosphatase 62 U/L (39-117); Anion Gap 12 (12-20); Aspartate Amino Transferase 16 U/L (5-31); Bilirubin Total 1.3 mg/dL (0.0-1.0); Blood Urea Nitrogen 9 mg/dL (9-16); Calcium 9.6 mg/dL (8.4-10.2); Carbon Dioxide 23 mmol/L (22-29); Chloride 107 mmol/L (96-108); Creatinine Clr Calc Pharmacy 127.4; Estimated Glomerular Filt Rate > 60; Glucose Random 116 mg/dL (60-115); Potassium 4.3 mmol/L (3.3-5.1); Sodium 138 mmol/L (135-145); Total Protein 7.5 g/dL (6.5-8.0)
[2023-04-19 18:08] LABS: HCG Quantitative < 2 mIU/mL
[2023-04-19 20:02] VITALS: BP 140/71; PULSE 66; RESP 18; TEMP 36.3; O2SAT 95
[2023-04-19 20:04] LABS: Appearance Urine Cloudy; Color Urine Dark Yellow; Glucose Urine UA Negative (Negative); Leukocyte Esterase Urine Moderate (2+) (Negative); Nitrite Urine Negative (Negative); Specific Gravity - Urine 1.025 (1.005-1.025); UMIC TRIGGER UACC YES; Urine Blood Moderate (2+) (Negative); Urine Ketones 80 mg/dL (Negative); Urine Protein Trace mg/dL (Neg-Trace)
[2023-04-19 20:06] LABS: Bacteria Urine 4+ (None Seen); Hyaline Casts Urine 0-2 /LPF (0-2); UACC Culture Trigger YES; WBC Urine 21-50 /HPF (0-5)
[2023-04-19] MEDS: Morphine Sulfate 4 MG/ML CARTRIDGE IVPUSH (20:22)
[2023-04-19] MEDS: 0.9 % Sodium Chloride 1,000 ML 999 ML IV (20:22)
[2023-04-19] MEDS: iohexoL 350 MG/ML 100 ML INFUS..BTL 85 ML IV (21:06)
--- NOTE | 2023-04-19 21:36 | ECG_ITS ---
Test Reason : AFIB Blood Pressure : / mmHG Vent. Rate : 085 BPM Atrial Rate : 085 BPM P-R Int : 174 ms QRS Dur : 086 ms QT Int : 370 ms P-R-T Axes : 052 -10 043 degrees QTc Int : 440 ms Normal sinus rhythm Septal infarct (cited on or before 22-NOV-2020) Abnormal ECG When compared with ECG of 22-NOV-2020 21:11, Sinus rhythm has replaced Atrial fibrillation Vent. rate has decreased BY 44 BPM Referred By: Rukhsana Massey Electronically Signed By:MARY RAMIREZ
[2023-04-19 22:32] LABS: Lactic Acid 1.8 mmol/L (0.5-2.0)
[2023-04-19] MEDS: HYDROmorphone HCl 1 MG/ML SYRINGE 0.5 MG IVPUSH (22:39)
[2023-04-19 22:45] LABS: COVID-19 Test Negative (Negative); IDNOW Serial# 55D5AD1C
--- NOTE | 2023-04-19 22:45 | PHA.MEDREC ---
Pharmacy Consult ? Medication Reconciliation Pharmacy has completed the medication reconciliation. Patient reported medications. Reported she does have a maintenance inhaler that she does not use. Cydney Richter, PharmD
[2023-04-19] MEDS: Piperacillin Sodium/Tazobactam 4.5 GM in 0.9 % Sodium Chloride 100 ML IV (23:05)
[2023-04-19] MEDS: Sodium Chloride 0.45 % 1,000 ML 100 ML IVCONT (23:30)
[2023-04-19 23:39] VITALS: BP 135/77; PULSE 89; RESP 18; TEMP 36.4; O2SAT 93
[2023-04-20] VITALS (15 sets, daily range): BP systolic 112–150; BP diastolic 76–99; PULSE 72–111; RESP 14–22; TEMP 36–37.2; O2SAT 93–100
[2023-04-20] MEDS: HYDROmorphone HCl 1 MG/ML SYRINGE 0.5 MG IVPUSH ×4 (03:35→16:22)
[2023-04-20] MEDS: Acetaminophen 325 MG TABLET 650 MG PO (05:05)
[2023-04-20] MEDS: Sodium Chloride 0.45 % 1,000 ML 100 ML IVCONT ×2 (08:21→16:21)
--- NOTE | 2023-04-20 09:51 | MHC.CM.PN ---
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
--- NOTE | 2023-04-20 15:50 | PC.NURSE ---
At 1208 pt requesting to see a MD . This director underwriter sales dot Duggan at 1208 asking if he would be rounding . Dr Duggan responded at 1210 saying yes he would be in when he came in to do some OR cases. [address] Duggan at request of Pt wanting to see a MD. MD responded hes in the OR and will be up when able . Pt given reassurance and explained situation .
--- NOTE | 2023-04-20 17:30 | PM.PNGS ---
Subjective Subjective Date of Service: 04/20/23 Interval history: Patient is a 47-year-old female with a plethora of medical problems who presents here with approximately 2 and half day history of worsening right lower quadrant pain. She has never had such symptoms before. Because of progression of symptoms, she presents emergency department for further evaluation. Workup including CT scan demonstrated findings consistent with acute appendicitis. Patient's past medical history is most noteworthy among other things for atrial fibrillation for which he is on Eliquis. She took her dose this morning. Chart was reviewed patient evaluated Physical Exam Vital Signs: Vital Signs: Last Vital Signs Temp 97.8 F 04/20/23 14:55 Pulse 102 H 04/20/23 14:55 Resp 16 04/20/23 14:55 BP 137/79 04/20/23 14:55 Pulse Ox 93 04/20/23 14:55 O2 Del Method Room Air 04/20/23 14:55 BMI result Body Mass Index 48.6 Const: Other: Very corpulent female with significant discomfort secondary to right lower quadrant pain. Chest: Other: Chest breath sounds bilaterally, HS 1 in 2 GI: Other: Very corpulent abdomen. Marked right lower quadrant rebound tenderness. Objective Data Active Medications Acetaminophen (Acetaminophen 325 Mg Tablet) 650 mg PO Q6H PRN PRN Reason: Pain, Mild (Pain Scale 1-3) Last Admin: 04/20/23 05:05 Dose: 650 mg Documented By: ARIANNE Hydromorphone HCl (Hydromorphone Hcl 1 Mg/Ml Syringe) 0.5 mg IVPUSH Q4H PRN; Protocol PRN Reason: Pain, Severe (Pain Scale 7-10) Last Admin: 04/20/23 16:22 Dose: 0.5 mg Documented By: LORI Sodium Chloride (Sodium Chloride 0.45 %) 1,000 mls @ 100 mls/hr IVCONT .Q10H ESDRAS Last Admin: 04/20/23 16:21 Dose: 100 mls/hr Documented By: LORI Magnesium Hydroxide (Milk Of Magnesia 30 Ml Oral.Susp) 30 ml PO DAILY PRN PRN Reason: Constipation Ondansetron HCl (Ondansetron Hcl 4 Mg/2 Ml Vial) 4 mg IVPUSH Q8H PRN PRN Reason: Nausea and Vomiting Sodium Chloride (0.9 % Sodium Chloride Flush 3 Ml Syringe) 3 ml IVFLUSH QSHIFT [facility] Last Admin: 04/20/23 16:19 Dose: Not Given Documented By: LORI Non-Admin Reason: IV Running Labs 04/19/23 17:19 04/19/23 17:19 Labs: Laboratory Results - last 24 hr 04/19/23 04/19/23 04/19/23 17:19 19:57 22:12 Anion Gap 12 Estim Creat Clear Calc 127.4 Estimated GFR > 60 Random Glucose 116 H Lactic Acid 1.8 Calcium 9.6 D Total Bilirubin 1.3 H AST 16 ALT 30 Alkaline Phosphatase 62 Total Protein 7.5 Albumin 4.1 Beta HCG, Quant < 2 Urine Color Dark Yellow Urine Appearance Cloudy Urine pH 6.0 Ur Specific [place] 1.025 Urine Protein Trace Urine Glucose (UA) Negative Urine Ketones 80 Urine Blood Moderate (2+) H Urine Nitrite Negative Ur Leukocyte Esterase Moderate (2+) H Urine RBC 11-20 H Urine WBC 21-50 H Ur Squamous Epith Cells 6-10 Urine Bacteria 4+ Hyaline Casts 0-2 COVID-19 (RD) COVID-19 Clin Com 04/19/23 22:13 Anion Gap Estim Creat Clear Calc Estimated GFR Random Glucose Lactic Acid Calcium Total Bilirubin AST ALT Alkaline Phosphatase Total Protein Albumin Beta HCG, Quant Urine Color Urine Appearance Urine pH Ur Specific [place] Urine Protein Urine Glucose (UA) Urine Ketones Urine Blood Urine Nitrite Ur Leukocyte Esterase Urine RBC Urine WBC Ur Squamous Epith Cells Urine Bacteria Hyaline Casts COVID-19 (RD) Negative COVID-19 Clin Com See Note Microbiology Microbiology Results: Microbiology 04/19/23 Unknown Urine Culture - Preliminary Urine clean catch - Urine lion top Culture too young to evaluate. Procedures Date of Service Date of Service: 04/20/23 Progress Note: A&P Assessment and plan (1) Acute appendicitis: Status: Acute Plan Patient and her who was present during evaluation and I discussed the issue with her Eliquis. Typically a minimal of 2 days of holding Eliquis is undertaken before performing surgery. Patient is approximate 1 and half days out for this. There is a balance here between the risk of operative bleeding and the risk of appendiceal perforation if conservative therapies continue for another day. Risks, benefits, alternatives of laparoscopic possible open appendectomy reviewed the patient included but not limited to obviously bleeding, infection,, abscess, numbness, pain, scarring, bowel or bladder injury or leak. The current plan is to proceed with surgery based on the discussion was undertaken. Patient will be given preoperative Kcentra in an attempt to reverse her anticoagulation. All questions were answered. She will be an added on for this afternoon. Time Spent With Patient Time: Total time managing care of this patient today ____ minutes. Quality Stroke Does the patient have a stroke diagnosis?: No VTE Prior VTE?: No VTE Risk Level:: Surgical - low VTE Device Contraindication: Treatment Not Indicated VTE Drug Contraindication: Treatment Not Indicated
[2023-04-20] MEDS: Piperacillin Sodium/Tazobactam 4.5 GM in 0.9 % Sodium Chloride 100 ML IV (18:20)
--- NOTE | 2023-04-20 18:26 | PC.NURSE ---
Pt has been ordered for Hum Prothrombin pre op , this med has not been approved to be administered in this setting only the ED and the ICU per pharmacy . Per hydro generation supervisor Pt is unable to return to the ED and the ICU can not accommodate the Pt. I have sent DR Duggan a tiger txt regarding this and asking what he would like to do . Awaiting for a response from .
--- NOTE | 2023-04-20 20:05 | P.CONAN_ITS ---
HPI - Anesthesia Eval Consult details Narrative: Acute appendectomy PMFSH Active Problems Active Problems: All Active Problems (Updated 04/19/23 @ 22:06 by Rukhsana Massey NP) Acute appendicitis (Acute) Pre-op evaluation (Acute) Sleep apnea, obstructive (Acute) Morbid obesity (Acute) Asthma (Acute) Family planning advice (Acute) Atrial fibrillation (Acute) Past Medical History Medical History Asthma Atrial fibrillation Sleep apnea, obstructive Family History Family History Other Adopted Family history of problems with anesthesia: No Surgical History Surgical History No pertinent past surgical history History of Problems with Anesthesia: No Social History Social History Household Members: Family Housing: Apartment Do you presently have visiting nurse or other home services: No Alcohol intake: current Alcohol intake frequency: holidays/special occasions only Patient Tobacco Use Status: Former Tobacco user Quit Date: 2005 Years Smoked: 15 +/- Use of substances other than those prescribed or required for medical reasons: No Currently Displaying Signs/Symptoms of Drug Intoxication Withdrawal: No Have you been hit, kicked, punched, or otherwise hurt by someone within the past year? If so, by whom?: No Do you feel safe in your current relationship?: Yes Is there a partner from a previous relationship who is making you feel unsafe now?: No Are you made to feel afraid or neglected: No Advance Directives: No Advance Directives Information Provided: No Do you have thoughts of harming others: None Do you have a plan to hurt others: No Plan Recently lost weight without trying: No Eating poorly because of decreased appetite: No Nutrition Risks: No Nutritional Risk Patient : No : No Poor oral hygiene: No service: No Current occupational status: unemployed Meds Allergies Allergy/AdvReac Type Severity Reaction Status Date / Time No Known Allergies Allergy Verified 04/19/23 23:37 [No Known Allergies*] Active Medications: Current Medications Acetaminophen (Acetaminophen 325 Mg Tablet) 650 mg PO Q6H PRN PRN Reason: Pain, Mild (Pain Scale 1-3) Last Admin: 04/20/23 05:05 Dose: 650 mg Hydromorphone HCl (Hydromorphone Hcl 1 Mg/Ml Syringe) 0.5 mg IVPUSH Q4H PRN; Protocol PRN Reason: Pain, Severe (Pain Scale 7-10) Last Admin: 04/20/23 16:22 Dose: 0.5 mg Sodium Chloride (Sodium Chloride 0.45 %) 1,000 mls @ 100 mls/hr IVCONT .Q10H [facility] Last Admin: 04/20/23 16:21 Dose: 100 mls/hr Piperacillin Sod/Tazobactam (Sod 4.5 gm/ Sodium Chloride) 100 mls @ 200 mls/hr IV Q6H [facility] Last Infusion: 04/20/23 19:05 Dose: Infused Magnesium Hydroxide (Milk Of Magnesia 30 Ml Oral.Susp) 30 ml PO DAILY PRN PRN Reason: Constipation Ondansetron HCl (Ondansetron Hcl 4 Mg/2 Ml Vial) 4 mg IVPUSH Q8H PRN PRN Reason: Nausea and Vomiting Sodium Chloride (0.9 % Sodium Chloride Flush 3 Ml Syringe) 3 ml IVFLUSH QSHIFT [facility] Last Admin: 04/20/23 16:19 Dose: Not Given Home Medications Medication Instructions Recorded Confirmed Last Taken Type levonorgestrel 21 mcg/24 hours (8 intrauterine 07/12/21 03/28/23 Unknown History yrs) 52 mg intrauterine device (Mirena) Exam Exam Date and Time: April 20, [id number] Height,Weight and Vital Signs: Height 5 ft 8 in Weight 145 kg Last Vital Signs Temp 97.6 F 04/20/23 19:15 Pulse 96 04/20/23 19:15 Resp 14 04/20/23 19:15 BP 127/76 04/20/23 19:15 Pulse Ox 95 04/20/23 19:15 O2 Del Method Room Air 04/20/23 19:15 Pertinent Lab Results Pertinent Lab Results: Laboratory Tests 04/19/23 04/19/23 04/19/23 17:19 17:19 19:57 WBC 15.1 H RBC 5.10 Hgb 14.6 Hct 43.6 MCV 85.5 MCH 28.6 MCHC 33.5 RDW 12.1 Plt Count 237 MPV 9.1 L Immature Gran % (Auto) 0.3 Neut % (Auto) 81.3 H Lymph % (Auto) 11.4 L Bee % (Auto) 6.8 Eos % (Auto) 0.1 Baso % (Auto) 0.1 Lymph # (Auto) 1.7 Bee # (Auto) 1.0 Eos # (Auto) 0.0 Baso # (Auto) 0.0 Abs Immat Gran (auto) 0.05 H Absolute Neuts (auto) 12.3 H Absolute Nucleated RBC 0.000 Nucleated RBC % (auto) 0.0 Sodium 138 Potassium 4.3 D Chloride 107 Carbon Dioxide 23 Anion Gap 12 BUN 9 Creatinine 0.83 Estim Creat Clear Calc 127.4 Estimated GFR > 60 Random Glucose 116 H Lactic Acid Calcium 9.6 D Total Bilirubin 1.3 H AST 16 ALT 30 Alkaline Phosphatase 62 Total Protein 7.5 Albumin 4.1 Beta HCG, Quant < 2 Urine Color Dark Yellow Urine Appearance Cloudy Urine pH 6.0 Ur Specific Pierre Part 1.025 Urine Protein Trace Urine Glucose (UA) Negative Urine Ketones 80 Urine Blood Moderate (2+) H Urine Nitrite Negative Ur Leukocyte Esterase Moderate (2+) H Urine RBC 11-20 H Urine WBC 21-50 H Ur Squamous Epith Cells 6-10 Urine Bacteria 4+ Hyaline Casts 0-2 COVID-19 (RD) COVID-19 [employer] Com 04/19/23 04/19/23 22:12 22:13 WBC RBC Hgb Hct MCV MCH MCHC RDW Plt Count MPV Immature Gran % (Auto) Neut % (Auto) Lymph % (Auto) Bee % (Auto) Eos % (Auto) Baso % (Auto) Lymph # (Auto) Bee # (Auto) Eos # (Auto) Baso # (Auto) Abs Immat Gran (auto) Absolute Neuts (auto) Absolute Nucleated RBC Nucleated RBC % (auto) Sodium Potassium Chloride Carbon Dioxide Anion Gap BUN Creatinine Estim Creat Clear Calc Estimated GFR Random Glucose Lactic Acid 1.8 Calcium Total Bilirubin AST ALT Alkaline Phosphatase Total Protein Albumin Beta HCG, Quant Urine Color Urine Appearance Urine pH Ur Specific Pierre Part Urine Protein Urine Glucose (UA) Urine Ketones Urine Blood Urine Nitrite Ur Leukocyte Esterase Urine RBC Urine WBC Ur Squamous Epith Cells Urine Bacteria Hyaline Casts COVID-19 (RD) Negative COVID-19 Clin Com See Note Airway Mallampati Class: II TM Dist: >3cm Neck ROM: Full Loose/Missing/Broken Teeth: No Heart: RRR Lungs: CTA Assessment and Plan Assessment Anesthesia Assessment: Anesthesia Plan Discussed and Chart Reviewed Final Anesthetic Review Family History of Problems with Anesthesia: No History of Problems with Anesthesia: No NPO: Yes ASA Class: III and Emergency Final Preanesthetic Review: No Changes in Pt Med Stat, Meds/Allgs Chart Reviewed, Consent Obtained/Reviewed and Anes Risks/Benef Reviewed Patient Risk: High Procedure Risk: Intermediate Anesthetic Plan Anesthetic Plan: GA Disposition: Standard PACU
--- NOTE | 2023-04-20 20:29 | PC.NURSE ---
Upon assuming care for this patient at 1900 medication Hum prothrombin IV CPLX is spiked and hanging on a IV poll. Medication can only be given in ED and ICU ,nursing department supervisor aware and at this time those units are not available to accommodate with infusion . Dr Duggan was informed of this by a day RN. This nurse called PACU X2 to inform of this situation.
--- NOTE | 2023-04-20 21:19 | PC.NURSE ---
Patient brought to OR, med Hum prothrombin IV sent with patient , to be administered there.
--- NOTE | 2023-04-20 22:49 | P.OP_ITS ---
Operative Note Operative Note Date of Service: 04/20/23 Narrative: Preoperative diagnosis: [] Acute appendicitis Postop diagnosis: [] Acute locally perforated appendicitis Procedure [] laparoscopic appendectomy Surgeon: [] [employer] Garage Mechanic: [] Type of Anesthesia: [] General Indication for surgery: [] Patient presented yesterday evening with acute appendicitis. Unfortunately patient was taking Eliquis and had taken her morning dose. The plan was to wait for at least a day and a half if possible and perform surgery. The progression of symptoms, the patient was given Kcentra which is not the 2 antidote for Eliquis but nonetheless was attempted and the patient taken the operating room for procedure. Intraoperatively, there were was no evidence of excessive bleeding or osing. Very Morbidly obese patient. Locally perforated appendicitis just distal to the appendiceal cecal junction. Omental and small bowel adhesions to the right lower quadrant. Findings: [] Patient brought to the operating room, placed on operative table supine position, after adequate level of general anesthesia was induced, the patient's abdomen which was very corpulent was prepped and draped in usual sterile fashion. Using a supraumbilical curvilinear incision, Russell technique was used to insufflate the abdominal cavity to 15 mm of CO2. Lower midline and suprapubic ports were placed under direct laparoscopic view and the patient was placed in Trendelenburg position, and tilted to the left. Findings were as noted above. Omental and small bowel it adhesions to the right lower quadrant were gently removed. The perforated appendix was identified. The markedly phlegmonous ap pendix was grasped using laparoscopic graspers, and brought to the field. This mesentery was sequentially taken down using double firing of ligature device. Appendix avulse at the perforation site. The stump was grasped and a MELITON stapler placed across the cecal side of the appendiceal cecal junction. Specimens were placed in an Endo-Catch bag, a retrieved through the umbilical port. Incidental findings were of a calcified small lopez sized mass as well as and infarcted piece of appendix epiploica . These were also sent to pathology for evaluation. The abdominal cavity was very copiously irrigated, secured hemostasis. All ports removed under direct laparoscopic view. Wounds were closed in following manner; umbilical wound has fascia reapproximated using interrupted 0 Vicryl sutures. Skin wounds were closed using subcuticular 4-0 Vicryl sutures followed by Steri-Strips and sterile dressings. Wounds were of drip or 5% Marcaine at completion. Sponge, needle, and instrument counts reported correct. Patient tolerated the procedure well and emerged from anesthesia stable condition. EBL minimal
[2023-04-20] MEDS: fentaNYL citrate/PF 100 MCG/2 ML VIAL 50 MCG IVPUSH ×2 (22:53→22:58)
[2023-04-20] MEDS: HYDROmorphone HCl 0.5 MG/0.5 ML SYRINGE IVPUSH ×2 (23:02→23:20)
[2023-04-20] MEDS: 0.9 % Sodium Chloride 1,000 ML 999 ML IV (23:45)
[2023-04-21] MEDS: Piperacillin Sodium/Tazobactam 4.5 GM in 0.9 % Sodium Chloride 100 ML IV ×4 (00:47→17:38)
[2023-04-21] MEDS: Sodium Chloride 0.45 % 1,000 ML 100 ML IVCONT ×2 (01:38→12:31)
[2023-04-21] MEDS: HYDROmorphone HCl 1 MG/ML SYRINGE 0.5 MG IVPUSH ×3 (03:33→20:33)
[2023-04-21 06:50] VITALS: BP 137/96; PULSE 81; RESP 18; TEMP 36.6; O2SAT 92
[2023-04-21] MEDS: Flecainide Acetate 50 MG TABLET PO ×2 (08:11→20:33)
[2023-04-21] MEDS: HYDROmorphone HCl 0.5 MG/0.5 ML SYRINGE IVPUSH (08:13)
--- NOTE | 2023-04-21 09:17 | PC.NURSE ---
Pt tolerating clear liquids requesting pain med PRN see OCT. Abdominal dressing clean dry and intact. Routine post op care
[2023-04-21 15:18] VITALS: BP 137/65; PULSE 83; RESP 20; TEMP 36.3; O2SAT 92
--- NOTE | 2023-04-21 15:51 | PM.PNGS ---
Subjective Subjective Date of Service: 04/21/23 Interval history: No BM or flatus yet. Aside from incisional discomfort, patient had uneventful evening. She is feeling overall better. Physical Exam Vital Signs: Vital Signs: Last Vital Signs Temp 97.4 F 04/21/23 15:18 Pulse 83 04/21/23 15:18 Resp 20 04/21/23 15:18 BP 137/65 04/21/23 15:18 Pulse Ox 92 04/21/23 15:18 O2 Del Method Room Air 04/21/23 15:18 O2 Flow Rate 2 04/20/23 23:56 BMI result Body Mass Index 48.6 GI: Other: Abdomen soft. All dressings clean dry and intact. Objective Data Active Medications Acetaminophen (Acetaminophen 325 Mg Tablet) 650 mg PO Q6H PRN PRN Reason: Pain, Mild (Pain Scale 1-3) Last Admin: 04/20/23 05:05 Dose: 650 mg Documented By: ARIANNE Albuterol Sulfate (Albuterol Sulfate (0.083%) 2.5 Mg/3 Ml Vial.Neb) 2.5 mg INHALE ONCE PRN PRN Reason: Wheezing Fentanyl (Fentanyl Citrate/Pf 100 Mcg/2 Ml Vial) 50 mcg IVPUSH Q5M PRN; Protocol PRN Reason: Pain, Severe (Pain Scale 7-10) Last Admin: 04/20/23 22:58 Dose: 50 mcg Documented By: KEIRY Flecainide Acetate (Flecainide Acetate 50 Mg Tablet) 50 mg PO BID [facility] Last Admin: 04/21/23 08:11 Dose: 50 mg Documented By: LORI Furosemide (Furosemide 20 Mg Tablet) 20 mg PO DAILY PRN; Protocol PRN Reason: edema Hydromorphone HCl (Hydromorphone Hcl 1 Mg/Ml Syringe) 0.5 mg IVPUSH Q4H PRN; Protocol PRN Reason: Pain, Severe (Pain Scale 7-10) Last Admin: 04/21/23 03:33 Dose: 0.5 mg Documented By: ARIANNE Hydromorphone HCl (Hydromorphone Hcl 0.5 Mg/0.5 Ml Syringe) 0.5 mg IVPUSH Q5M PRN; Protocol PRN Reason: Pain, Severe (Pain Scale 7-10) Last Admin: 04/21/23 08:13 Dose: 0.5 mg Documented By: LORI Sodium Chloride (Sodium Chloride 0.45 %) 1,000 mls @ 100 mls/hr IVCONT .Q10H [facility] Last Admin: 04/21/23 12:31 Dose: 100 mls/hr Documented By: LORI Piperacillin Sod/Tazobactam (Sod 4.5 gm/ Sodium Chloride) 100 mls @ 200 mls/hr IV Q6H [facility] Last Infusion: 04/21/23 12:01 Dose: 0 mls/hr Documented By: LORI Magnesium Hydroxide (Milk Of Magnesia 30 Ml Oral.Susp) 30 ml PO DAILY PRN PRN Reason: Constipation Ondansetron HCl (Ondansetron Hcl 4 Mg/2 Ml Vial) 4 mg IVPUSH Q8H PRN PRN Reason: Nausea and Vomiting Sodium Chloride (0.9 % Sodium Chloride Flush 3 Ml Syringe) 3 ml IVFLUSH QSHIFT [facility] Last Admin: 04/21/23 08:06 Dose: Not Given Documented By: LORI Non-Admin Reason: IV Running Zolpidem Tartrate (Zolpidem Tartrate 5 Mg Tablet) 5 mg PO BEDTIME PRN PRN Reason: Insomnia Labs 04/19/23 17:19 04/19/23 17:19 Microbiology Microbiology Results: Microbiology 04/19/23 Unknown Urine Culture - Final Urine clean catch - Urine lion top 04/19/23 22:52 Blood Culture - Preliminary Blood - Venous No growth after 24 hours. 04/19/23 22:12 Blood Culture - Preliminary Blood - Venous No growth after 24 hours. Procedures Date of Service Date of Service: 04/21/23 Progress Note: A&P Assessment and plan (1) Acute appendicitis: Status: Acute Plan Status post perforated appendicitis. Continue IV antibiotics, incentive spirometry, out of bed, awaiting further bowel function before advancing diet. Time Spent With Patient Time: Total time managing care of this patient today ____ minutes. Quality Stroke Does the patient have a stroke diagnosis?: No VTE Prior VTE?: No VTE Risk Level:: Surgical - low VTE Device Contraindication: Treatment Not Indicated VTE Drug Contraindication: Treatment Not Indicated
--- NOTE | 2023-04-21 16:09 | HO.POSTANES ---
Post Anesthesia Evaluation Post Anesthesia Evaluation Date of Service: 04/21/23 Vital Signs: Vital Signs Temp Pulse Resp BP Pulse Ox O2 Del Method 04/21/23 15:18 97.4 F 83 20 137/65 92 Room Air 04/21/23 06:50 98 F 81 18 137/96 H 92 Room Air Anesthesia: General Endotracheal-GETA Mental Status: Awake Pain Control: Satisfactory Nausea/Vomiting: None Hydration: Adequate Anesthesia-Related Issues: No Anes. Related Issues
[2023-04-21 19:57] VITALS: O2SAT 95
[2023-04-21 20:11] VITALS: BP 101/58; PULSE 77; RESP 20; TEMP 36
[2023-04-21] MEDS: Montelukast Sodium 10 MG TABLET PO (20:32)
[2023-04-22] VITALS: BP 133/72; PULSE 72; RESP 20; TEMP 36.4; O2SAT 92
[2023-04-22] MEDS: 0.9 % Sodium Chloride Flush 3 ML SYRINGE IVFLUSH ×4 (00:32→20:41)
[2023-04-22] MEDS: Piperacillin Sodium/Tazobactam 4.5 GM in 0.9 % Sodium Chloride 100 ML IV ×5 (00:34→23:59)
[2023-04-22] MEDS: HYDROmorphone HCl 1 MG/ML SYRINGE 0.5 MG IVPUSH (05:52)
[2023-04-22 07:19] VITALS: BP 120/72; PULSE 72; RESP 16; TEMP 36; O2SAT 98
[2023-04-22] MEDS: Flecainide Acetate 50 MG TABLET PO ×2 (08:12→20:41)
[2023-04-22] MEDS: Metoprolol Succinate ER 25 MG TAB.ER.24H PO (08:12)
--- NOTE | 2023-04-22 09:25 | PM.PNGS ---
Subjective Subjective Date of Service: 04/22/23 Interval history: C/o heartburn and burping this morning. Sore at incisions. OOB to bathroom. Has passed flatus and had a small BM. Has not tried full liquids this am. Physical Exam Vital Signs: Vital Signs: Last Vital Signs Temp 96.8 F 04/22/23 07:19 Pulse 72 04/22/23 07:19 Resp 16 04/22/23 07:19 BP 120/72 04/22/23 07:19 Pulse Ox 98 04/22/23 07:19 O2 Del Method Room Air 04/22/23 07:19 O2 Flow Rate 2 04/20/23 23:56 BMI result Body Mass Index 48.6 Const: General: no acute distress and alert Orientation/consciousness: patient oriented x3 GI: Inspection: Yes incision (clean ) Palpation (GI): Soft to palpation, Tenderness to palpation present (GI) (mild incisional), no guarding and not rigid Percussion: Yes normal to percussion Skin: General skin exam: no rashes or lesions noted Neuro: General: patient oriented x3 Objective Data Active Medications Acetaminophen (Acetaminophen 325 Mg Tablet) 650 mg PO Q6H PRN PRN Reason: Pain, Mild (Pain Scale 1-3) Last Admin: 04/20/23 05:05 Dose: 650 mg Documented By: ARIANNE Albuterol Sulfate (Albuterol Sulfate (0.083%) 2.5 Mg/3 Ml Vial.Neb) 2.5 mg INHALE ONCE PRN PRN Reason: Wheezing Fentanyl (Fentanyl Citrate/Pf 100 Mcg/2 Ml Vial) 50 mcg IVPUSH Q5M PRN; Protocol PRN Reason: Pain, Severe (Pain Scale 7-10) Last Admin: 04/20/23 22:58 Dose: 50 mcg Documented By: KEIRY Flecainide Acetate (Flecainide Acetate 50 Mg Tablet) 50 mg PO BID [facility] Last Admin: 04/22/23 08:12 Dose: 50 mg Documented By: JOANA Furosemide (Furosemide 20 Mg Tablet) 20 mg PO DAILY PRN; Protocol PRN Reason: edema Hydromorphone HCl (Hydromorphone Hcl 1 Mg/Ml Syringe) 0.5 mg IVPUSH Q4H PRN; Protocol PRN Reason: Pain, Severe (Pain Scale 7-10) Last Admin: 04/22/23 05:52 Dose: 0.5 mg Documented By: JOANA Hydromorphone HCl (Hydromorphone Hcl 0.5 Mg/0.5 Ml Syringe) 0.5 mg IVPUSH Q5M PRN; Protocol PRN Reason: Pain, Severe (Pain Scale 7-10) Last Admin: 04/21/23 08:13 Dose: 0.5 mg Documented By: LORI Piperacillin Sod/Tazobactam (Sod 4.5 gm/ Sodium Chloride) 100 mls @ 200 mls/hr IV Q6H [facility] Last Infusion: 04/22/23 06:42 Dose: 0 mls/hr Documented By: JOANA Magnesium Hydroxide (Milk Of Magnesia 30 Ml Oral.Susp) 30 ml PO DAILY PRN PRN Reason: Constipation Metoprolol Succinate (Metoprolol Succinate Er 25 Mg Tab.Er.24h) 25 mg PO DAILY [facility]; Protocol Last Admin: 04/22/23 08:12 Dose: 25 mg Documented By: JOANA Montelukast Sodium (Montelukast Sodium 10 Mg Tablet) 10 mg PO BEDTIME [facility] Last Admin: 04/21/23 20:32 Dose: 10 mg Documented By: JOSIE Ondansetron HCl (Ondansetron Hcl 4 Mg/2 Ml Vial) 4 mg IVPUSH Q8H PRN PRN Reason: Nausea and Vomiting Sodium Chloride (0.9 % Sodium Chloride Flush 3 Ml Syringe) [facility] Last Admin: 04/22/23 08:12 Dose: 3 ml Documented By: JOANA Zolpidem Tartrate (Zolpidem Tartrate 5 Mg Tablet) 5 mg PO BEDTIME PRN PRN Reason: Insomnia Labs 04/19/23 17:19 04/19/23 17:19 Microbiology Microbiology Results: Microbiology 04/19/23 22:52 Blood Culture - Preliminary Blood - Venous No growth after 48 hours. 04/19/23 22:12 Blood Culture - Preliminary Blood - Venous No growth after 48 hours. 04/19/23 Unknown Urine Culture - Final Urine clean catch - Urine lion top Procedures Date of Service Date of Service: 04/22/23 Progress Note: A&P Assessment and plan (1) Acute appendicitis: Status: Acute Plan POd #1 s/p lap appy for perforated appendicitis.?Doing fairly well and has evidence of GI function but belching this morning, does not feel ready for solid food. Will cont full liquids for now. Encouraged OOB to recliner, ambulation of halls and IS use. Continue IV antibiotics. Pepcid added. Time Spent With Patient Time: Total time managing care of this patient today ____ minutes. Quality Stroke Does the patient have a stroke diagnosis?: No VTE Prior VTE?: No VTE Risk Level:: Surgical - low VTE Device Contraindication: Treatment Not Indicated VTE Drug Contraindication: Treatment Not Indicated
[2023-04-22] MEDS: Famotidine 20 MG TABLET PO (09:58)
--- NOTE | 2023-04-22 13:19 | MHC.CM.PN ---
EMR REVIEWED AND PER MD ROUNDS., PT NOT MEDICALLY CLEARED FOR DC. ADVANCING DIET SLOWLY S/P LAP APPY WITH PERF. CM WILL CONTINUE TO FOLLOW FOR ANY CHANGE IN DC PLAN OR NEEDS.
[2023-04-22 15:51] VITALS: BP 120/68; PULSE 60; RESP 18; TEMP 36.2; O2SAT 96
[2023-04-22 19:00] VITALS: O2SAT 97
[2023-04-22] MEDS: Acetaminophen 325 MG TABLET 650 MG PO (19:27)
[2023-04-22] MEDS: oxyCODONE HCl Immed Release 5 MG TABLET 10 MG PO (19:28)
[2023-04-22 19:46] VITALS: BP 130/70; PULSE 70; RESP 16; TEMP 36.1; O2SAT 97
[2023-04-22] MEDS: Montelukast Sodium 10 MG TABLET PO (20:41)
[2023-04-22 23:44] VITALS: BP 110/60; PULSE 56; RESP 18; TEMP 36.9; O2SAT 93
[2023-04-23] MEDS: Acetaminophen 325 MG TABLET 650 MG PO ×2 (03:27→15:42)
[2023-04-23] MEDS: oxyCODONE HCl Immed Release 5 MG TABLET 10 MG PO (03:28)
[2023-04-23] MEDS: Piperacillin Sodium/Tazobactam 4.5 GM in 0.9 % Sodium Chloride 100 ML IV (05:48)
[2023-04-23 07:24] VITALS: BP 121/69; PULSE 54; RESP 20; TEMP 36.7; O2SAT 96
--- NOTE | 2023-04-23 08:25 | P.PNGS_ITS ---
Subjective Subjective Date of Service: 04/23/23 Interval history: Feels much better this morning. Oxycodone made her itchy but pain is controlled on oral analgesics. OOB and ambulating. Physical Exam Vital Signs: Vital Signs: Last Vital Signs Temp 98.1 F 04/23/23 07:24 Pulse 54 04/23/23 07:24 Resp 20 04/23/23 07:24 BP 121/69 04/23/23 07:24 Pulse Ox 96 04/23/23 07:24 O2 Del Method Room Air 04/23/23 07:24 O2 Flow Rate 2 04/20/23 23:56 BMI result Body Mass Index 48.6 Const: General: comfortable, no acute distress and alert Orientation/consciousness: patient oriented x3 Resp: Effort & Inspection: normal respiratory effort GI: Inspection: No distended and Yes incision (clean) Palpation (GI): Soft to palpation, Tenderness to palpation present (GI) (mild incisional), no guarding and not rigid Skin: General skin exam: no rashes or lesions noted Neuro: General: patient oriented x3 and moves all extremities Objective Data Active Medications Acetaminophen (Acetaminophen 325 Mg Tablet) 650 mg PO Q6H PRN PRN Reason: Pain, Mild (Pain Scale 1-3) Last Admin: 04/23/23 03:27 Dose: 650 mg Documented By: MADELINE Albuterol Sulfate (Albuterol Sulfate (0.083%) 2.5 Mg/3 Ml Vial.Neb) 2.5 mg INHALE ONCE PRN PRN Reason: Wheezing Apixaban (Apixaban 5 Mg Tablet) 5 mg PO BID [facility] Famotidine (Famotidine 20 Mg Tablet) 20 mg PO DAILY [facility] Last Admin: 04/22/23 09:58 Dose: 20 mg Documented By: JOANA Fentanyl (Fentanyl Citrate/Pf 100 Mcg/2 Ml Vial) 50 mcg IVPUSH Q5M PRN; Protocol PRN Reason: Pain, Severe (Pain Scale 7-10) Last Admin: 04/20/23 22:58 Dose: 50 mcg Documented By: KEIRY Flecainide Acetate (Flecainide Acetate 50 Mg Tablet) 50 mg PO BID [facility] Last Admin: 04/22/23 20:41 Dose: 50 mg Documented By: MADELINE Furosemide (Furosemide 20 Mg Tablet) 20 mg PO DAILY PRN; Protocol PRN Reason: edema Hydromorphone HCl (Hydromorphone Hcl 1 Mg/Ml Syringe) 0.5 mg IVPUSH Q4H PRN; Protocol PRN Reason: Pain, Severe (Pain Scale 7-10) Last Admin: 04/22/23 05:52 Dose: 0.5 mg Documented By: JOANA Hydromorphone HCl (Hydromorphone Hcl 0.5 Mg/0.5 Ml Syringe) 0.5 mg IVPUSH Q5M PRN; Protocol PRN Reason: Pain, Severe (Pain Scale 7-10) Last Admin: 04/21/23 08:13 Dose: 0.5 mg Documented By: LORI Piperacillin Sod/Tazobactam (Sod 4.5 gm/ Sodium Chloride) 100 mls @ 200 mls/hr IV Q6H [facility] Last Infusion: 04/23/23 06:28 Dose: 0 mls/hr Documented By: MADELINE Magnesium Hydroxide (Milk Of Magnesia 30 Ml Oral.Susp) 30 ml PO DAILY PRN PRN Reason: Constipation Metoprolol Succinate (Metoprolol Succinate Er 25 Mg Tab.Er.24h) 25 mg PO DAILY [facility]; Protocol Last Admin: 04/22/23 08:12 Dose: 25 mg Documented By: JOANA Montelukast Sodium (Montelukast Sodium 10 Mg Tablet) 10 mg PO BEDTIME [facility] Last Admin: 04/22/23 20:41 Dose: 10 mg Documented By: MADELINE Ondansetron HCl (Ondansetron Hcl 4 Mg/2 Ml Vial) 4 mg IVPUSH Q8H PRN PRN Reason: Nausea and Vomiting Sodium Chloride (0.9 % Sodium Chloride Flush 3 Ml Syringe) 3 ml IVFLUSH QSHIFT [facility] Last Admin: 04/22/23 20:41 Dose: 3 ml Documented By: MADELINE Tramadol HCl (Tramadol Hcl 50 Mg Tablet) 100 mg PO Q4H PRN PRN Reason: Pain, Severe (Pain Scale 7-10) Zolpidem Tartrate (Zolpidem Tartrate 5 Mg Tablet) 5 mg PO BEDTIME PRN PRN Reason: Insomnia Labs 04/19/23 17:19 04/19/23 17:19 Procedures Date of Service Date of Service: 04/23/23 Progress Note: A&P Assessment and plan (1) Acute appendicitis: Status: Acute (2) S/P laparoscopic appendectomy: Status: Acute Plan POd #2 s/p lap appy for perforated appendicitis. Doing well, comfortable on PO analgesics. Will advance diet to solid diet. Change oxycodone to tramadol. Will reassess later today for possible discharge to home on PO abx if tolerating diet. Resume eliquis. Time Spent With Patient Time: Total time managing care of this patient today ____ minutes. Quality Stroke Does the patient have a stroke diagnosis?: No VTE Prior VTE?: No VTE Risk Level:: Surgical - low VTE Device Contraindication: Treatment Not Indicated VTE Drug Contraindication: Treatment Not Indicated
[2023-04-23] MEDS: Flecainide Acetate 50 MG TABLET PO (09:12)
[2023-04-23] MEDS: Apixaban 5 MG TABLET PO (09:12)
[2023-04-23] MEDS: Famotidine 20 MG TABLET PO (09:13)
[2023-04-23] MEDS: 0.9 % Sodium Chloride Flush 3 ML SYRINGE IVFLUSH (09:13)
[2023-04-23] MEDS: Metoprolol Succinate ER 25 MG TAB.ER.24H PO (09:13)
[2023-04-23] MEDS: traMADoL HCL 50 MG TABLET 100 MG PO ×2 (09:28→17:11)
--- NOTE | 2023-04-23 14:43 | MHC.CM.PN ---
pt dcd home no services
[2023-04-23] MEDS: Amoxicillin/Potassium Clav 875 MG TABLET PO (15:36)
[2023-04-23 15:52] VITALS: BP 121/66; PULSE 63; RESP 20; TEMP 36.2; O2SAT 95
--- NOTE | 2023-04-23 16:56 | PC.NURSE ---
Patient got up to the bathroom,sero-sang drainage started coming out of umbilicus site incision,aproximately 20 ml,patient states it felt like the area was tearing apart,inspected area ,did not notice any wound dehiscence,patient states this also happened last night,ДМИТРИЙ Swann was notified,steri-strips intact,covered area with sterile dsd and tegaderm.Patient is ok to be discharged,informed patient that drainage can be expected for a few days
--- NOTE | 2023-04-25 12:14 | PM.DS ---
DS: Providers Provider Date of Service: 04/23/23 Date of admission: 04/19/23 21:53 Date of discharge: 04/23/23 Primary care physician: Yadi Escalera MD Attending physician on admission: Kayode Duggan Attending physician on discharge: Kyaode Duggan DS: Diagnosis Discharge Diagnosis (1) Acute appendicitis: Status: Acute (2) S/P laparoscopic appendectomy: Status: Acute DS: Summary Hospital Course Hospital Course: HPI AT ADMISSION: Patient is a 47-year-old female with a plethora of medical problems who presents here with approximately 2 and half day history of worsening right lower quadrant pain. She has never had such symptoms before. Because of progression of symptoms, she presents emergency department for further evaluation. Workup including CT scan demonstrated findings consistent with acute appendicitis. Patient's past medical history is most noteworthy among other things for atrial fibrillation for which he is on Eliquis. She took her dose this morning. Chart was reviewed patient evaluated HOSPITAL COURSE: She was admitted to the surgical service for further treatment of the acute appendicitis. Treatment option were discussed and she wanted to proceed with laparoscopic appendectomy possible open. It was decided to proceed with surgery that day despite her eliquis use given the risk of perforation with the appendicitis with the plan to give preoperative Kcentra in an attempt to reverse her anticoagulation.?She was added onto the OR schedule for that day. On 04/20/23, a laparoscopic appendectomy was performed by Dr. Duggan without complication. The appendix was locally perforated just distal to the appendiceal cecal junction with omental and small bowel adhesions to the right lower quadrant. The patient tolerated the procedure well. She was admitted post operatively for observation and IV antibiotics. She had an uncomplicated recovery course. She was started on clear liquids and her diet was advanced to solids once she had evidence of GI function. She was ambulated. Her pain control improved and she was comfortable on PO analgesics. Her eliquis was resumed. Her abdomen remained benign with appropriate post op tenderness and clean incisions. At the time of discharge, she was tolerating a solid diet without nausea or vomiting and was moving her bowels. Her abdomen was benign. She felt ready for discharge. She was discharged to home on 04/23/23 in stable condition on a PO course of Augmentin. She is to follow up in the office in 1 week. Status at Discharge Functional status at discharge: independent ambulation Overall status at discharge: patient is progressing back to baseline Time Spent with Patient Time attestation: Total time managing care of this patient today ____ minutes. Discharge coordination time: Less than 30 minutes Quality: Safe Use of Opioids Does Pt have an Active Cancer Diagnosis on the Problem List?: No Quality: Stroke Does the patient have a stroke diagnosis?: No Physical Exam Vital Signs: Vital Signs: Last Vital Signs Temp 97.2 F 04/23/23 15:52 Pulse 63 04/23/23 15:52 Resp 20 04/23/23 15:52 BP 121/66 04/23/23 15:52 Pulse Ox 95 04/23/23 15:52 O2 Del Method Room Air 04/23/23 15:52 O2 Flow Rate 2 04/20/23 23:56 BMI result Body Mass Index 48.6 Const: Orientation/consciousness: patient oriented x3 Resp: Effort & Inspection: normal respiratory effort GI: Inspection: No distended and Yes incision (clean) Palpation (GI): Tenderness to palpation present (GI) (incisional), no guarding and not rigid Percussion: Yes normal to percussion Skin: General skin exam: no rashes or lesions noted Neuro: General: patient oriented x3 and moves all extremities Extrem: General: Yes no clubbing, cyanosis or edema DS: Data Data Completed and Pending Completed studies during hospitalization [Text1]: 04/20/23 22:38 Surgical [PTH] Routine A.? Appendix, perforated, appendectomy:? Acute gangrenous appendicitis with perforation and periappendicitis with fibrinous adhesions.? ? B.? Appendix epiploica and incidental calcified mass, excision:? Fat necrosis with calcifications consistent with infarcted epiploic appendage; epiploic appendage with hemorrhage and acute inflammation. Discharge Plan Discharge Anticipated Discharge Date/Time: 04/23/23 14:51 Patient Disposition: Home, Self-Care Discharge Diagnosis: acute perforated appendicitis Referrals: Yadi Escalera MD [Primary Care Provider] - 1 Week Kayode Duggan MD [Physician] - 1 Week Discharge Medications: New amoxicillin-pot clavulanate 875-125 mg tablet 1 tab PO BID Qty: 20 0RF tramadol 100 mg tablet 100 mg PO Q4-6H PRN (Reason: pain (scale score 7-10)) Qty: 30 0RF Rx Instructions: DNExceed 4 doses/24h Continued apixaban 5 mg tablet 5 mg PO BID Qty: 180 1RF flecainide 50 mg tablet 50 mg PO BID Qty: 180 3RF metoprolol succinate 25 mg tablet extended release 24 hr 25 mg PO DAILY Qty: 90 3RF Protocol: Hold for SBP/HR < HOLD for SBP < : 90 HOLD for HR < : 60 Mirena 20 mcg/24 hours (7 yrs) 52 mg intrauterine device intrauterine montelukast 10 mg tablet 10 mg PO BEDTIME Qty: 60 3RF furosemide [Lasix] 20 mg tablet 20 mg PO DAILY PRN (Reason: edema) Qty: 30 0RF Discharge Orders: Discharge Order (Routine); Ordered 04/23/23 Ordered By: Lexi Swann Diet: Advance to usual diet Activity on Discharge: No heavy lifting Stand Alone Forms: Patient Portal Discharge page, Work/School Release Activity Restrictions/Additional Instructions: Apply an ice pack for short intervals (20 minutes on, followed by at least 20 minutes off) for the first 2 days. Do not apply heat. Do not use creams, lotions, or topical antibiotics. These can cause infection or allergic reaction. Ok to shower 48 hours after your surgery. Remove dressings in 2 days and replace as needed. You have steri strips (small white cloth strips) covering your incision- these will fall off ~1 week. Follow up in office with Dr. Duggan in 1 week. ([phone]) Please take your first dose of Augmentin tomorrow morning (04/24/23). No heavy lifting (>10lbs) or strenuous activity! Call Your Doctor If: -Your temperature exceeds 101.5? F -You experience excessive pain or swelling -You have an unexpected reaction to medication -You have excessive bleeding -You experience continued vomiting/nausea -Your incision begins to separate -Your incision shows signs of infection such as increased redness, swelling, excessive pain, drainage (light blood or clear fluid is normal) or heat Care Plan Goals: Return to baseline health and resume normal activities following recovery period. Health Concerns: A fib on eliquis perforated appendicitis Plan of Treatment: s/p laparoscopic appendectomy resume anticoagulation follow up in office Assessment: Doing well post op. Discharge Date/Time: 04/23/23 18:30
== END 2023-04-23 18:30 | disposition home or self-care (01) | DRG 233 ==
LOC: HO.ED 22:06 → HO.EDOVER 22:09 → HO.S3 22:42
PROVIDERS: Nurse Practitioner Family; Registered Nurse Emergency; Admitting Provider Surgery; Emergency Provider Emergency Medicine; PCP Internal Medicine; Visit Provider Surgery
PROC: 0DTJ4ZZ Resection of Appendix, Percutaneous Endoscopic Approach (ICD-10-PCS; CPT 44970; principal; 2023-04-20 16:00)
DX: K35.32 Acute appendicitis with perforation, localized peritonitis, and gangrene, without abscess (principal); E66.01 Morbid (severe) obesity due to excess calories; I48.91 Unspecified atrial fibrillation; G47.33 Obstructive sleep apnea (adult) (pediatric); Z20.822 Contact with and (suspected) exposure to COVID-19; Z68.42 Body mass index [BMI] 45.0-49.9, adult; Z87.891 Personal history of nicotine dependence; Z97.5 Presence of (intrauterine) contraceptive device; Z79.01 Long term (current) use of anticoagulants; Z79.899 Other long term (current) drug therapy
CPT/HCPCS: 36415; 74177; 76775; 80053; 81001; 83605; 84702; 85025; 87040; 87086; 87635; 88304; 93005; 99285; J0131; J1100; J1170; J2250; J2270; J2405; J2543; J2550; J3010; J7168; Q9967

== ENCOUNTER → 2023-04-19 21:53 | Outpatient (BNV) | payer OTHER, SELFPAY | PROVIDERS: Admitting Provider Surgery; Emergency Provider Emergency Medicine; PCP Internal Medicine; Visit Provider Surgery | DX: K35.80 Unspecified acute appendicitis (principal); Z90.49 Acquired absence of other specified parts of digestive tract | CPT/HCPCS: 44970; 99024; 99233 ==

== ENCOUNTER 2023-04-26 10:05 | Emergency (ER) | payer OTHER, SELFPAY ==
--- NOTE | ~2023-04-26 | XR_ITS ---
EXAMINATION: XR CHEST CLINICAL INFORMATION: Shortness of breath status post surgery COMPARISON: Chest radiograph from 11/22/2020 TECHNIQUE: Frontal view of the chest was obtained. FINDINGS: Bilateral low lung volumes. Accentuation of the pulmonary vasculature. Streaky radiopacities involving the bilateral mid lung degroot and right lung base may reflect atelectasis. No pneumothorax. Trachea is midline. Cardiac mediastinal silhouette is not enlarged. No large pleural effusion. Osseous structures are intact. Soft tissues are unremarkable. XR/XR chest 1V IMPRESSION: 1. Bilateral low lung volumes. 2. Accentuation of the pulmonary vasculature. 3. Streaky radiopacities involving the bilateral mid lung degroot and right lung base may reflect atelectasis.
--- NOTE | ~2023-04-26 | CT_ITS ---
EXAMINATION: CT ANGIOGRAM OF THE CHEST WITH AND WITHOUT CONTRAST (CT PULMONARY ANGIOGRAM FOR PE) CLINICAL INFORMATION: Reason for Exam sob COMPARISON: None available. TECHNIQUE: Prior to contrast administration, noncontrast localization images were obtained. Subsequently, multidetector volumetric imaging was performed from the thoracic inlet to below the diaphragms following the administration of 19 mL Omnipaque 350 intravenous contrast. No contrast reaction reported Sagittal, coronal, and MIP oblique sagittal reformatted images were obtained on the CT workstation, uploaded to PACS, and reviewed. This CT examination was performed using dose optimization techniques as appropriate, variously including the following: *Automated exposure control *Adjustment of mA and/or kV according to patient size (this includes techniques or standardized protocols for targeted exams where dose is matched to indication/reason for exam; i.e. extremities or head) *Use of iterative reconstruction technique Total exam dose-length product 607 mGy-cm FINDINGS: QUALITY OF STUDY/CONTRAST BOLUS: Satisfactory. PULMONARY ARTERIES: No pulmonary emboli. THORACIC AORTA: No aneurysm. Atelectasis seen in the right lung base. LUNG: No focal consolidation, nodules or masses. PLEURA: No pleural effusion or pneumothorax. MEDIASTINUM: Normal heart size. No pericardial effusion. No hilar or mediastinal lymphadenopathy. No evidence of septal bowing or right heart strain. CORONARY ARTERY CALCIFICATION: None visualized on this study. CHEST WALL/AXILLA: No axillary or internal mammary lymphadenopathy. OSSEOUS STRUCTURES: No acute or suspicious osseous abnormality. UPPER ABDOMEN: Unremarkable. No reflux of contrast into the hepatic veins to suggest elevated right heart pressures. CT/CT angio chest PE protocol IMPRESSION: No evidence of pulmonary embolism. Atelectasis seen in the right lung base. VTE: negative.
--- NOTE | ~2023-04-26 | CT_ITS ---
EXAMINATION: CT ABDOMEN AND PELVIS WITHOUT CONTRAST CLINICAL INFORMATION: Right lower quadrant pain. History of recent appendicitis COMPARISON: 04/19/2023 TECHNIQUE: Multidetector volumetric imaging was performed from the superior aspect of the liver through the pubic symphysis. Sagittal and coronal reformatted images were obtained on the technologist's workstation. This CT examination was performed using dose optimization techniques as appropriate, variously including the following: *Automated exposure control *Adjustment of mA and/or kV according to patient size (this includes techniques or standardized protocols for targeted exams where dose is matched to indication/reason for exam; i.e. extremities or head) *Use of iterative reconstruction technique DLP: 1287 mGy-cm FINDINGS: LUNG BASES: There is linear atelectasis at the right lung base. LIVER, GALLBLADDER, AND BILIARY TREE: The liver is normal in size, shape, and attenuation. No focal hepatic lesion or biliary ductal dilatation is present. Gallbladder is over distended without evidence of cholecystitis. PANCREAS: Unremarkable. SPLEEN: Unremarkable. ADRENAL GLANDS: Unremarkable. KIDNEYS AND URETERS: There is contrast in the collecting system of both kidneys, most likely residual from previous injection on April 19. No evidence of hydroureteronephrosis. BLADDER.: Urinary bladder distended by contrast. GASTROINTESTINAL TRACT: Patient is status post recent laparoscopic appendectomy. ABDOMINAL WALL: No significant hernia is appreciated. There is fluid collection in the cecal wall adjacent to the suture line without evidence of an gas collections. The collection measured approximately 3.8 x 2.8 cm. No free air or ascites. Findings suggestive for inflammatory collection versus unresolved seroma. There stranding of peripheral mesenteric fat. Appendix is surgically absent. The rest of bowel loops are unremarkable. LYMPH NODES: Normal. VASCULAR: Unremarkable. PELVIC VISCERA: There is IUD in the uterus. OSSEOUS STRUCTURES: Unremarkable. The post surgical subcutaneous anterior abdominal wall changes with fluid along the umbilicus and right lower quadrant. There is trace of air in subcutaneous fat seen also. CT/CT abdomen pelvis wo IV con IMPRESSION: 1. Status post laparoscopic appendectomy with fluid collection in the cecal wall adjacent to the suture line. Most likely seroma versus early abscess formation 2. Postsurgical changes in the anterior abdominal wall. 3. Residual contrast in the collecting system of both kidneys. 4. IUD in the uterus. 5. Atelectasis at the right lung base. Fleischner guidelines were followed.
[2023-04-26 10:09] VITALS: BP 135/91; PULSE 69; RESP 18; TEMP 36.9; O2SAT 96; BMI 49.4
--- NOTE | 2023-04-26 10:19 | ED.GENADULT ---
HPI - General Adult General Chief complaint: General Medical Stated complaint: recent surgery / sharp R side pain / sob Time Seen by Provider: 04/26/23 10:19 Source: patient Mode of arrival: ambulatory Limitations: no limitations History of Present Illness HPI narrative: 47-year-old female history of AFib on Eliquis, asthma, obesity, obstructive sleep apnea, status post laparoscopic appendectomy on 04/25/2023 presenting with complaints of right-sided flank pain, shortness of breath for the past few days worsening. She reports pain is worse when taking a deep breath. Patient reports shortness of breath both at rest and with exertion. Dr. Urban cazares. Denies CP, nausea, vomiting, abd pain, MATOS, vision changes Related Data Home Medications Medication Instructions Recorded Confirmed levonorgestrel 21 mcg/24 hours (8 intrauterine 07/12/21 03/28/23 yrs) 52 mg intrauterine device (Mirena) Previous Rx's Medication Instructions Recorded montelukast 10 mg tablet 10 mg PO BEDTIME #60 tabs 09/17/22 apixaban 5 mg tablet 5 mg PO BID #180 tabs 11/14/22 flecainide 50 mg tablet 50 mg PO BID #180 tabs 11/21/22 furosemide 20 mg tablet (Lasix) 20 mg PO DAILY PRN edema #30 tabs 01/24/23 metoprolol succinate 25 mg 25 mg PO DAILY #90 tabs 02/12/23 tablet,extended release 24 hr amoxicillin 875 mg-potassium 1 tab PO BID #20 tabs 04/23/23 clavulanate 125 mg tablet tramadol 100 mg tablet 100 mg PO Q4-6H PRN pain (scale 04/23/23 score 7-10) #30 tabs Allergies Allergy/AdvReac Type Severity Reaction Status Date / Time No Known Allergies Allergy Verified 04/19/23 23:37 [No Known Allergies*] Review of Systems Review of Systems: Constitutional : No Weight loss, No Fever, No Chills, No Fatigue, No Malaise ENT/Mouth : No sore throat, No Rhinorrhea Eyes: No Eye Pain, No Swelling, No Redness Cardiovascular : No Chest Pain, + SOB, No Dyspnea on Exertion, No Orthopnea, No Edema, No Palpitations Respiratory : +shortness of breath, +R side pain with breathing, No Cough, No Sputum, No Wheezing Gastrointestinal : No Nausea, No Vomiting, No Diarrhea, No Constipation, No abdominal Pain, No Hematochezia, No Melena Genitourinary : No Dysuria, No Urinary Frequency, No Hematuria, Musculoskeletal : No joint pain, No Myalgias, No Joint Swelling, + flank pain Skin : No Skin Lesions, No rash Neuro : No Weakness, No Numbness, No Dizziness, No Headache Psych : No Anxiety/Panic, No Depression All other systems reviewed and are negative Yes all other systems are reviewed and are negative [facility], [facility] Past Medical History Attestation statement: The following information was validated with the patient. Source: old records reviewed and nursing notes reviewed Medical History Asthma Atrial fibrillation Sleep apnea, obstructive Surgical History No pertinent past surgical history Family History Family History Other Adopted Social History Social History Household Members: Family Housing: Apartment Do you presently have visiting nurse or other home services: No Alcohol intake: former Patient Tobacco Use Status: Former Tobacco user Quit Date: 2005 Years Smoked: 15 +/- Smoked in Last 30 Days: No Use of substances other than those prescribed or required for medical reasons: No Advance Directives: Yes Advance Directives Information Provided: Yes Advance Directives on File: No service: No Current occupational status: unemployed Physical Exam ED Vital Signs: Vital Signs - 24 hr 04/26/23 10:09 04/26/23 10:38 04/26/23 11:18 Temperature 98.4 F 98.1 F Pulse Rate 69 Respiratory Rate 18 18 20 Blood Pressure 135/91 H 147/87 H Pulse Oximetry 96 93 Oxygen Delivery Method Room Air Room Air BMI result Body Mass Index 49.4 vss Appearance: Alert.? Oriented X3.? No acute distress.? Head: Normocephalic, atraumatic, no step-offs or deformities Eyes: Pupils equal, round and reactive to light.? CVS: Normal heart rate and rhythm.? Pulses normal.? Respiratory: No respiratory distress.? Breath sounds normal.? Abdomen: Soft and nontender.?No drainae or discharge from the abdominal surgical site. Back: No midline or paraspinous tenderness. No CVA tenderness. Right side pain is not reproducible with palpation. Skin: Skin warm and dry.? Normal skin color.? Normal skin turgor.? Extremities: No lower extremity edema.? No calf ttp. 5/5 strength to bilateral upper and lower extremities Neuro: Oriented X 3.? No motor deficit.? No sensory deficit. CN 2-12 intact Course Reevaluation(s) Reevaluation #1: CBC appears to be around normal limits. Chemistry unremarkable. Normal troponin & BNP Dimer elevated --> CTA was ordered to r/o PE unremarkable atalectasis in the R lung noted however. Discussed this case w/ my attending who reccomends CT abdomen to r/o adriel fluid. UA, EKG pending and final read of CT abdomen pending. Sign out to joie pending results and dipo. Time: 16:10 Medications Administered Discontinued Medications Generic Name Dose Route Start Last Admin Trade Name Adrielq PRN Reason Stop Dose Admin Iohexol 99 ml 04/26/23 12:02 04/26/23 12:02 Iohexol 350 Mg/Ml 100 Ml Infus..Btl IV 04/26/23 12:03 99 ml ONCE ONE Administration Morphine Sulfate 4 mg 04/26/23 10:42 04/26/23 11:18 Morphine Sulfate 4 Mg/Ml Cartridge IVPUSH 04/26/23 10:43 4 mg ONCE ONE Administration Protocol Morphine Sulfate 4 mg 04/26/23 15:29 04/26/23 15:52 Morphine Sulfate 4 Mg/Ml Cartridge IVPUSH 04/26/23 15:30 4 mg ONCE ONE Administration Protocol Medical Decision Making Medical Decision Making [facility] Narrative: 1020 47-year-old female with recent laparoscopic appendectomy on 04/25/2023 presents with right-sided flank pain and shortness of breath the past few days worsening Physical exam benign Concerns for possible viral illness versus postop pulmonary embolism. Unlikely ACS, kidney stone, pyelonephritis, obstructing uropathy. Will rule out UTI, cystitis, electrolyte abnormalities, dehydration. Unlikely dissection, acute abdomen, cholecystitis, appendicitis, diverticulitis pain Plan labs, imaging, urine Differential Diagnosis Differential Diagnoses: The differential diagnosis associated with the presentation includes Concerns for possible viral illness versus postop pulmonary embolism. Unlikely ACS, kidney stone, pyelonephritis, obstructing uropathy. Will rule out UTI, cystitis, electrolyte abnormalities, dehydration. Unlikely dissection, acute abdomen, cholecystitis, appendicitis, diverticulitis pain Admission/Observation Consideration of admission/observation: Escalation of care including admission/observation considered Unlikely Lab Data MDM Lab Attestation statement: I reviewed the patient's lab results. 04/26/23 11:14 04/26/23 11:14 Labs: Lab Results 04/26/23 04/26/23 04/26/23 Range/Units 11:14 11:14 11:14 WBC 8.3 (4.8-10.8) X10*3/uL RBC 4.55 (4.20-5.50) X10*6/uL Hgb 12.9 (12.0-16.0) g/dl Hct 39.4 (37.0-47.0) % MCV 86.6 (80.0-98.0) fL MCH 28.4 (27.0-33.0) pg MCHC 32.7 (31.0-35.0) g/dl RDW 12.4 (11.0-16.0) % Plt Count 311 D (160-400) X10*3/uL MPV 9.4 (9.4-12.3) fL Immature Gran % (Auto) 3.5 H (0.0-0.4) % Neut % (Auto) 59.0 (45-73) % Lymph % (Auto) 24.4 (20-40) % Potter % (Auto) 8.6 (2-11) % Eos % (Auto) 4.0 (0-4) % Baso % (Auto) 0.5 (0-2) % Lymph # (Auto) 2.0 (1.2-4.9) X10*3/uL Potter # (Auto) 0.7 (0.1-1.2) X10*3/uL Eos # (Auto) 0.3 (0.0-0.4) X10*3/uL Baso # (Auto) 0.0 (0.0-0.2) X10*3/uL Abs Immat Gran (auto) 0.29 H (0.00-0.03) X10*3/uL Absolute Neuts (auto) 4.9 (2.0-8.3) x10*3/uL Absolute Nucleated RBC 0.000 (0.0-0.012) X10*3/uL Nucleated RBC % (auto) 0.0 (0.0-0.2) /100WBC D-Dimer High Sensitivty 1708 NG/ML Sodium 138 (135-145) mmol/L Potassium 3.7 (3.3-5.1) mmol/L Chloride 103 (96-108) mmol/L Carbon Dioxide 24 (22-29) mmol/L Anion Gap 15 (12-20) BUN 12 (9-16) mg/dL Creatinine 0.66 (0.5-1.4) mg/dL Estim Creat Clear Calc 161.8 Estimated GFR > 60 Random Glucose 102 (60-115) mg/dL Calcium 8.9 D (8.4-10.2) mg/dL Magnesium 1.8 (1.6-2.6) mg/dL Total Bilirubin 0.4 (0.0-1.0) mg/dL AST 37 H (5-31) U/L ALT 56 H (0-31) U/L Alkaline Phosphatase 59 (39-117) U/L Troponin I High Sens (<3.5-17.0) ng/L B-Natriuretic Peptide (<100) pg/mL Total Protein 6.7 (6.5-8.0) g/dL Albumin 3.2 L (3.5-5.0) g/dL 04/26/23 04/26/23 Range/Units 14:09 14:09 WBC (4.8-10.8) X10*3/uL RBC (4.20-5.50) X10*6/uL Hgb (12.0-16.0) g/dl Hct (37.0-47.0) % MCV (80.0-98.0) fL MCH (27.0-33.0) pg MCHC (31.0-35.0) g/dl RDW (11.0-16.0) % Plt Count (160-400) X10*3/uL MPV (9.4-12.3) fL Immature Gran % (Auto) (0.0-0.4) % Neut % (Auto) (45-73) % Lymph % (Auto) (20-40) % Potter % (Auto) (2-11) % Eos % (Auto) (0-4) % Baso % (Auto) (0-2) % Lymph # (Auto) (1.2-4.9) X10*3/uL Potter # (Auto) (0.1-1.2) X10*3/uL Eos # (Auto) (0.0-0.4) X10*3/uL Baso # (Auto) (0.0-0.2) X10*3/uL Abs Immat Gran (auto) (0.00-0.03) X10*3/uL Absolute Neuts (auto) (2.0-8.3) x10*3/uL Absolute Nucleated RBC (0.0-0.012) X10*3/uL Nucleated RBC % (auto) (0.0-0.2) /100WBC D-Dimer High Sensitivty NG/ML Sodium (135-145) mmol/L Potassium (3.3-5.1) mmol/L Chloride (96-108) mmol/L Carbon Dioxide (22-29) mmol/L Anion Gap (12-20) BUN (9-16) mg/dL Creatinine (0.5-1.4) mg/dL Estim Creat Clear Calc Estimated GFR Random Glucose (60-115) mg/dL Calcium (8.4-10.2) mg/dL Magnesium (1.6-2.6) mg/dL Total Bilirubin (0.0-1.0) mg/dL AST (5-31) U/L ALT (0-31) U/L Alkaline Phosphatase (39-117) U/L Troponin I High Sens < 2.7 (<3.5-17.0) ng/L B-Natriuretic Peptide 50 (<100) pg/mL Total Protein (6.5-8.0) g/dL Albumin (3.5-5.0) g/dL Core Measures AMI core measures followed: Yes Measure exclusions: not indicated Critical Care Time Critical Care Time Critical Care Time: No Discharge Plan Discharge Clinical Impression: Abdominal pain, RUQ, Shortness of breath Prescriptions: No Action apixaban 5 mg tablet 5 mg PO BID Qty: 180 1RF flecainide 50 mg tablet 50 mg PO BID Qty: 180 3RF metoprolol succinate 25 mg tablet extended release 24 hr 25 mg PO DAILY Qty: 90 3RF Protocol: Hold for SBP/HR < HOLD for SBP < : 90 HOLD for HR < : 60 amoxicillin-pot clavulanate 875-125 mg tablet 1 tab PO BID Qty: 20 0RF tramadol 100 mg tablet 100 mg PO Q4-6H PRN (Reason: pain (scale score 7-10)) Qty: 30 0RF Rx Instructions: DNExceed 4 doses/24h Mirena 20 mcg/24 hours (7 yrs) 52 mg intrauterine device intrauterine montelukast 10 mg tablet 10 mg PO BEDTIME Qty: 60 3RF furosemide [Lasix] 20 mg tablet 20 mg PO DAILY PRN (Reason: edema) Qty: 30 0RF
--- NOTE | 2023-04-26 10:31 | PC.NURSE ---
Patient discharge tue s/p appendectomy last sat. Reports has had increasing sob since saturday evening. Reports being unable to take a full breath without right sided lung pain. Denies chest pain and headache. Lungs sounds without wheezing or crackles. Surgical site bandage intact without draiange, patient reports pulling sensation when standing at surgical site.
[2023-04-26 10:38] VITALS: BP 147/87; RESP 18; TEMP 36.7; O2SAT 93
[2023-04-26 11:18] VITALS: RESP 20
[2023-04-26] MEDS: Morphine Sulfate 4 MG/ML CARTRIDGE IVPUSH ×2 (11:18→15:52)
[2023-04-26 11:19] LABS: MANUAL DIFF FLAG NO
[2023-04-26 11:30] LABS: Basophils Percent Auto 0.5 % (0-2); Eosinophils Absolute Auto 0.3 X10*3/uL (0.0-0.4); Hematocrit 39.4 % (37.0-47.0); Hemoglobin 12.9 g/dl (12.0-16.0); Imm Gran Abs Auto 0.29 X10*3/uL (0.00-0.03); Imm Gran Pct Auto 3.5 % (0.0-0.4); Lymphocytes Percent Auto 24.4 % (20-40); Mean Corpuscular HGB Conc 32.7 g/dl (31.0-35.0); Mean Corpuscular Hemoglobin 28.4 pg (27.0-33.0); Mean Corpuscular Volume 86.6 fL (80.0-98.0); Mean Platelet Volume 9.4 fL (9.4-12.3); Monocytes Absolute Auto 0.7 X10*3/uL (0.1-1.2); Monocytes Percent Auto 8.6 % (2-11); Neutrophils Absolute Auto 4.9 x10*3/uL (2.0-8.3); Platelet Count 311 X10*3/uL (160-400); Red Blood Count 4.55 X10*6/uL (4.20-5.50); Red Cell Distribution Width 12.4 % (11.0-16.0); White Blood Count 8.3 X10*3/uL (4.8-10.8)
[2023-04-26 11:32] LABS: D Dimer High Sensitivity 1708 NG/ML
[2023-04-26 11:38] LABS: Alanine Aminotransferase 56 U/L (0-31); Albumin Level 3.2 g/dL (3.5-5.0); Alkaline Phosphatase 59 U/L (39-117); Anion Gap 15 (12-20); Aspartate Amino Transferase 37 U/L (5-31); Bilirubin Total 0.4 mg/dL (0.0-1.0); Blood Urea Nitrogen 12 mg/dL (9-16); Calcium 8.9 mg/dL (8.4-10.2); Carbon Dioxide 24 mmol/L (22-29); Chloride 103 mmol/L (96-108); Creatinine Clr Calc Pharmacy 161.8; Estimated Glomerular Filt Rate > 60; Glucose Random 102 mg/dL (60-115); Magnesium 1.8 mg/dL (1.6-2.6); Potassium 3.7 mmol/L (3.3-5.1); Sodium 138 mmol/L (135-145); Total Protein 6.7 g/dL (6.5-8.0)
[2023-04-26] MEDS: iohexoL 350 MG/ML 100 ML INFUS..BTL 99 ML IV (12:02)
[2023-04-26 14:36] LABS: B Type Natriuretic Peptide 50 pg/mL (<100)
[2023-04-26 14:40] LABS: Troponin-I High Sensitivity < 2.7 ng/L (<3.5-17.0)
--- NOTE | 2023-04-26 16:09 | ECG_ITS ---
Test Reason : GENERAL MEDICAL Blood Pressure : / mmHG Vent. Rate : 063 BPM Atrial Rate : 063 BPM P-R Int : 176 ms QRS Dur : 094 ms QT Int : 416 ms P-R-T Axes : 029 003 034 degrees QTc Int : 425 ms Normal sinus rhythm with sinus arrhythmia Normal ECG When compared with ECG of 19-APR-2023 22:59, Criteria for Septal infarct are no longer Present Referred By: Gena Brown Electronically Signed By:MARY RAMIREZ
[2023-04-26 16:49] VITALS: BP 150/81; RESP 18; O2SAT 94
[2023-04-26 17:09] LABS: Appearance Urine Clear; Color Urine Yellow; Glucose Urine UA Negative (Negative); Leukocyte Esterase Urine Negative (Negative); Nitrite Urine Negative (Negative); PH 6.5 (5.0-9.0); Specific Gravity - Urine >= 1.030 (1.005-1.025); UMIC TRIGGER UACC YES; Urine Blood Trace (Negative); Urine Ketones Negative (Negative); Urine Protein Negative (Neg-Trace)
[2023-04-26 17:15] LABS: Bacteria Urine None Seen (None Seen); Hyaline Casts Urine 0-2 /LPF (0-2); WBC Urine 0-5 /HPF (0-5)
--- NOTE | 2023-04-26 18:35 | PC.NURSE ---
Discharge plan reviewed with patient who verbalized understanding
== END 2023-04-26 18:48 | disposition home or self-care (01) ==
PROVIDERS: Physician Assistant; Emergency Provider Emergency Medicine
DX: I48.91 Unspecified atrial fibrillation (principal); G47.33 Obstructive sleep apnea (adult) (pediatric); R10.2 Pelvic and perineal pain; R06.02 Shortness of breath; R10.31 Right lower quadrant pain; Z87.891 Personal history of nicotine dependence; Z79.01 Long term (current) use of anticoagulants; Z79.899 Other long term (current) drug therapy
CPT/HCPCS: 36415; 71045; 71275; 74176; 80053; 81001; 81003; 83735; 83880; 84484; 85025; 85379; 93005; 96374; 96376; 99284; J2270; Q9967

== ENCOUNTER 2023-04-30 15:01 | Outpatient (AMB) | payer OTHER, SELFPAY ==
--- NOTE | 2023-04-30 14:45 | A.OFFWM_ITS ---
Intake Intake Visit Reasons: VIDEO BH Intake Allergies No Known Allergies [No Known Allergies*] Allergy (Verified 05/03/23 10:16) [facility] Medical History Sleep apnea, obstructive Asthma Atrial fibrillation Surgical History No pertinent past surgical history Family History Other Adopted Social History Household Members: Family Housing: Apartment Do you presently have visiting nurse or other home services: No Alcohol intake: former Patient Tobacco Use Status: Former Tobacco user Quit Date: 2005 Years Smoked: 15 +/- service: No Current occupational status: unemployed Behavioral Health Assessment Weight Management Therapy Therapy Notes Details Patient is looking to have weight loss surgery to help improve her health and quality of life. She stated that she struggles to do everyday tasks and things she enjoys. Patient stated that she sees a therapist Brooklynn Fishman [phone] (release on file) and has been in therapy most of her life. Pt stated that she works on interpersonal issues and relationships in therapy. No history of any problems with drugs or alcohol. She has no history of inpatient psychiatric admissions. Presenting Concerns Referral Source provider Reason for referral weight loss surgery evaluation Precipitating Event obesity Living Situation Current Living Situation Own At risk of losing current housing? No Satisfied with current living situation? Yes Comments Pt lives with her and her youngest daughter who is 16. Food/Weight/Diet Expectations of change weight loss and maintenance History/Relationship with food Patient stated that she has always had an addictive relationship with food, if she craves something she has to have it and nothing can stop her. If she is eating something that is good she wont stop eating. Pizza, pasta, occasionally Persian food, grinders, cream based soups, lasagna, mashed potatoes, eating out twice a week. Sometimes would also drink sodas and juice. Pt stated that she would eat two large plates of food. History/Relationship with weight She reported that she has struggled with her weight most of her life. Currently at her heaviest. History/Relationship with dieting Pt stated that she has only tried to eat heathier no fad diets. She reported loosing 70lbs years ago when she was going through a difficult time and was not eating due to depression. Binge Eating Do you frequently eat large amounts of food in short periods of time, not feeling physically hungry? Yes Do you feel out of control when you eat a large amount of food in a short period of time? Yes Do you eat large amounts of food rapidly and typically alone? Yes Night Eating Do you wake up at least once during the night to eat? No If you wake up in the night, do you find that it is necessary to eat something in order to fall back asleep? No Do you have little or no appetite in the morning and feel very hungry in the evening, often overeating between dinner and when you go to bed? No Social History Family history and relationship Patient was born in [facility] and raised in the [facility]. She reported being in foster care from age 5 then was adopted at age 13. She has one bio sister and several half siblings but does not talk with them Parental/Familial dispersion mixer obligations teenage daughter Developmental history and status no known issues in this area. Social support , grandmother, oldest daughter, best friend Cultural/Ethnic information Legal Involvement and History Current or historical involvement with the legal system? none Education Preferred learning style Auditory, Verbal, Written, Learn by doing and Visual Currently enrolled in educational program? No Interested in further educational program? 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 Employment Employment Status [employer] Wants help to find employment? No Financial Situation Describe current financial situation Occasional struggle Financial assistance? None Service Service? No Mental Health and Addiction Treatment Current/Past substance abuse? No Current/Past addictive behavior concerns? No Medical and Physical Health Summary Physical exam in the last year? No Pain Screening Current pain? No Pain in the last few months? No Medications Is the patient compliant with medications? Yes Does the patient have Aguayo Guardian in place? Not applicable Does the patient use complimentary health approaches? No Trauma/Abuse History History of trauma? Yes Questionnaires PHQ-9 Over the last 2 weeks, how often have you been bothered by any of the following problems? 1. Little interest or pleasure in doing things: several days 2. Feeling down, depressed, or hopeless: several days 3. Trouble falling or staying asleep, or sleeping too much: nearly every day 4. Feeling tired or having little energy: nearly every day 5. Poor appetite or overeating: nearly every day 6. Feeling bad about yourself - or that you are a failure or have let yourself or your family down: nearly every day 7. Trouble concentrating on things, such as reading the newspaper or watching television: not at all 8. Moving or speaking so slowly that other people could have noticed. Or the opposite - being so fidgety or restless that you have been moving around a lot more than usual: not at all 9. Thoughts that you would be better off or of hurting yourself in some way: not at all Total score: 14 Depression Screening Interpretation: Positive Source: Developed by Drs. Ángel Faria, Estrella Jason, Carlos Manuel Henderson and colleagues, with an educational gabby from [employer]. Binge Eating Scale Group 1 A. I don't feel self-conscious about my wt. or body size when I'm with others. B. I feel concerned about how I look to others, but it normally does not make me fell disappointed with myself C. I do get self-conscious about my appearance and wt. which makes me feel dis appointed in myself. D. I feel very self-conscious about my wt. and frequently I feel intense shame and disgust for myself. I try to avoid social contacts because of my self-c onsciousness. Response Group 1: C Group 2 A. I don't have any difficulty eating slowly in the proper manner. B. Although I seem to gobble down foods, I don't end up feeling stuffed because of eating to much. C. At times, I tend to eat quickly and then, I feel uncomfortably full afterwards. D. I have the habit of bolting down my food, without really chewing it. When this happens I usually feel uncomfortably stuffed because I've eaten to much. Response Group 2: C Group 3 A. I feel capable to control my eating urges when I want to. B. I feel like I have failed to control my eating more than the average person. C. I feel utterly helpless when it comes to feeling in control of my eating urges. D. Because I feel so helpless about controlling my eating I have become very desperate about trying to get control. Response Group 3: C Group 4 A. I don't have the habit of eating when I'm bored. B. I sometimes eat when I'm bored, but often I'm able to get busy and get my mind off food. C. I have a regular habit of eating when I'm bored, but occasionally, I can use some other activity to get my mind off eating. D. I have a strong habit of eating when I'm bored. Nothing seems to help me breath the habit. Response Group 4: D Group 5 A. I'm usually physically hungry when I eat something. B. Occasionally, I eat something on impulse even though I really am not hungry. C. I have the regular habit of eating foods, that I might not really enjoy, to satisfy a hungry feeling even though physically, I don't need the food. D. Although I'm not physically hungry, I get a hungry feeling in my mouth that only seems to be satisfied when I eat a food, like sandwich, that fills my mouth. Sometimes, when I eat the food to satisfy my mouth hunger, I then spit the food out so I won't gain weight. Response Group 5: B Group 6 A. I don't feel any guilt or self-hate after I overeat. B. After I overeat, occasionally I feel guilt or self-hate. C. Almost all the time I experience strong guilt or self-hate after I overeat. Response Group 6: C Group 7 A. I don't lose total control of my eating when dieting even after periods when I overeat. B. Sometimes when I eat a forbidden food on a diet, I feel like I blew it and eat even more. C. Frequently, I have the habit of saying to myself, I've blown it now, why not go all the way, when I overeat on a diet. When that happens I eat more. D. I have a regular habit of starting a strict diets for myself but I break the diets by going on an eating binge. My life seems to be either a feast or famine. Response Group 7: C Group 8 A. I rarely eat so much food that I feel uncomfortably stuffed afterwards. B. Usually about once a month, I each such a quantity of food, I end up feeling very stuffed. C. I have regular periods during the month when I eat large amounts of food, either at mealtime or at snacks. D. I eat so much food that I regularly feel quite uncomfortable after eating and sometimes a bit nauseous. Response Group 8: C Group 9 A. My level of calorie intake does not go up very high or go down very low on a regular basis. B. Sometimes after I overeat, I will try to reduce my caloric intake to almost nothing to compensate for the excess calories I've eaten. C. I have a regular habit of overeating during the night. It seems that my routine is not to be hungry in the morning but overeat in the evening. D. In my adult years, I have had week-long periods where I practically starve myself. This follows periods when I overeat. It seems I live a life of either feast or famine. Response Group 9: A Group 10 A. I usually am able to stop eating when I want to. I know when enough is enough. B. Every so often, I experience a compulsion to eat which I can't seem to control. C. Frequently, I experience strong urges to eat which I seem unable to control, but at other times I can control my eating urges. D. I feel incapable of controlling urges to eat. I have a fear of not being able to stop eating voluntarily. Response Group 10: D Group 11 A. I don't have any problem stopping eating when I feel full. B. I usually can stop eating when I feel full but occasionally overeat leaving me feeling uncomfortably stuffed. C. I have a problem stopping eating once I start and usually I feel uncomfortably stuffed after I eat a meal. D. Because I have a problem not being able to stop eating when I want, I sometimes have to induce vomiting to relieve my stuffed feeling. Response Group 11: C Group 12 A. I seem to eat just as much when I'm with others, Family social gatherings as when I'm by myself. B. Sometimes, when I'm with other persons, I don't eat as much as I want to eat because I'm self-conscious about my eating. C. Frequently, I eat only a small amount of food when others are present, because I'm very embarrassed about my eating. D. I feel so ashamed about overeating that I pick times to overeat when I know no one will see me. I feel like a closet eater. Response Group 12: B Group 13 A. I eat three meals a day with only an occasional between meal snack. B. I eat 3 meals a day, but I also normally snack between meals. C. When I am snacking heavily, I get in the habit of skipping regular meals. D. There are regular periods when I seem to be continually eating, with no planned meals. Response Group 13: B Group 14 A. I don't think much about trying to control unwanted eating urges. B. At least some of the time, I feel my thoughts are pre-occupied with trying to control my eating urges. C. I feel that frequently I spend much time thinking about how much I ate or about trying not to eat anymore. D. It seems to me that most of my waking hours are pre-occupied by thoughts about eating or not eating. I feel like I'm constantly struggling not to eat. Response Group 14: C Group 15 A. I don't think about food a great deal. B. I have strong craving for food but they last only for brief periods of time. C. I have days when I can't seem to think about anything else but food. D. Most of my days seem to be pre-occupied with thoughts about food. I feel like I live to eat. Response Group 15: B Group 16 A. I usually know whether or not I'm physically hungry. I take the right portion of food to satisfy me. B. Occasionally, I feel uncertain about knowing whether or not I'm physically hungry. A these times it's hard to know how much food I should take to satisfy me. C. Even though I might know how many calories I should eat, I don't have any idea what is a normal amount of food for me. Response Group 16: C Binge Eating Score: 28 Score less than 17 Minimal Risk Score between 18-26 Moderate Risk Score between 27-46 High Risk Assessment & Plan Assessment & Plan (1) Major depressive disorder, recurrent, moderate: Code(s): F33.1 - Major depressive disorder, recurrent, moderate (2) Morbid obesity: Code(s): E66.01 - Morbid (severe) obesity due to excess calories Plan Patient has depression and some binge eating sypmtoms. Her therapist will be contacted and she will be seen again. Telehealth Telehealth Location of provider rendering services: other Location of patient: address on file Patient Identification confirmed using: Name, : Yes Telehealth method: video Patient verbally consented to treatment: Yes Patient verbally consented to billing insurance company: Yes Patient informed of any privacy concerns related to visit: Yes Minutes spent on Phone/Video with Pt.: 45 Coding Level of Care Code Tele Psy Diag Eval (75280) Diagnoses Major depressive disorder, recurrent, moderate F33.1 Morbid obesity E66.01 Time Spent (min) 40
== END 2023-05-08 15:14 | disposition home or self-care (01) ==
LOC: HO.HBST 15:01
PROVIDERS: Visit Provider Counselor Mental Health
DX: F33.1 Major depressive disorder, recurrent, moderate (principal); E66.01 Morbid (severe) obesity due to excess calories
CPT/HCPCS: 90791

== ENCOUNTER → 2023-04-30 15:01 | Outpatient (BNVA) | payer OTHER, SELFPAY | PROVIDERS: Visit Provider Counselor Mental Health ==

== ENCOUNTER 2023-05-03 10:06 | Outpatient (AMB) | payer OTHER, SELFPAY ==
[2023-05-03 10:14] VITALS: BP 156/73; PULSE 65; BMI 48.0
--- NOTE | 2023-05-03 10:14 | A.OFFVIS_ITS ---
Intake Vital Signs 05/03/23 10:14 Height 5 ft 8 in Weight 316 lb BMI 48.0 BP 156/73 H Blood Pressure Location Rt radial Position Sitting Pulse 65 Intake Visit Reasons: s/p [place] [facility] [place] Intake Note: Patient here s/p lap appy. Reports healing well. Denies pain, oozing, itch. Has 2 more days of amox. Still taking tramadol. Tourist Information Officer Required: No Accompanied by: Self / Same As Patient Allergies No Known Allergies [No Known Allergies*] Allergy (Verified 05/03/23 10:16) HPI HPI Comments History of Present Illness Details Patient presents for follow-up. Status post perforated appendix. Patient doing well. Starting a diet. Having normal bowel habits. She is slowly but steadily increasing her activity level. She has minimal incisional discomfort. Patient has no fever chills night sweats or any other constitutional symptoms. She has re commenced her Eliquis. [facility] Medical History Sleep apnea, obstructive Asthma Atrial fibrillation Surgical History No pertinent past surgical history Family History Other Adopted Social History Household Members: Family Housing: Apartment Do you presently have visiting nurse or other home services: No Alcohol intake: former Patient Tobacco Use Status: Former Tobacco user Quit Date: 2005 Years Smoked: 15 +/- service: No Current occupational status: unemployed Physical Exam Vital Signs: Last Vital Signs Pulse 65 05/03/23 10:14 BP 156/73 H 05/03/23 10:14 BMI result Body Mass Index 48.0 GI Other: Abdomen soft. All wounds clean dry and intact. Assessment & Plan Assessment & Plan (1) S/P laparoscopic appendectomy: Code(s): Z90.49 - Acquired absence of other specified parts of digestive tract Plan Patients is doing well. She has been given local instructions, and will follow- up p.r.n.. Coding Level of Care Code Global (05837) Diagnoses S/P laparoscopic appendectomy Z90.49
== END 2023-05-03 10:21 | disposition home or self-care (01) ==
PROVIDERS: PCP Internal Medicine; Visit Provider Surgery
DX: Z90.49 Acquired absence of other specified parts of digestive tract (principal)
CPT/HCPCS: 99024

== ENCOUNTER → 2023-05-03 10:06 | Outpatient (BNVA) | payer OTHER, SELFPAY | PROVIDERS: PCP Internal Medicine; Visit Provider Surgery ==

== ENCOUNTER 2023-05-13 08:30 | Outpatient (AMB) | payer OTHER, SELFPAY ==
--- NOTE | 2023-05-13 08:34 | MHC.OFFVISWM ---
Intake VS Expanded 05/13/23 08:57 Height 5 ft 8 in Weight 313 lb 4 oz BMI 47.6 Intake Visit Reasons: VIDEO F/U SWL Allergies No Known Allergies [No Known Allergies*] Allergy (Verified 05/03/23 10:16) HPI HPI Comments History of Present Illness Details This is the patients second appt for SWL. Starting weight was 336.4 lbs on 03/28/23. TBWL is 23lbs or % TBWL. [place] [facility] [place], had follow up with Dr Duggan and can not resume full exercise until mid May. Meal plan: 7:30 am - 3 eggs and vegetables OR bar OR yogurt 10:30 - shake - Organically Inspired 22 grams with skim milk 1pm - bar or yogurt (skips this sometimes - because doesn't like [employer] bars anymore -> now Atkins bar) 3:30 - shake 6pm - chicken mostly - and vegetables - having a hard time with recipes Exercise plan: none due to recent surgery. Pre op work up completed as follows: SWL classes - - has not gotten access yet appts - follow up needs to be scheduled appts - follow up on 05/23 H pylori - negative Labs - not done yet CXR - 1. Bilateral low lung volumes. 2. Accentuation of the pulmonary vasculature. 3. Streaky radiopacities involving the bilateral mid lung degroot and right lung base may reflect atelectasis. CTA - negative on 04/26 ECG - normal ULS and UGI - 05/21 [facility] Medical History Sleep apnea, obstructive Asthma Atrial fibrillation Surgical History No pertinent past surgical history Family History Other Adopted Social History Household Members: Family Housing: Apartment Do you presently have visiting nurse or other home services: No Alcohol intake: former Patient Tobacco Use Status: Former Tobacco user Quit Date: 2005 Years Smoked: 15 +/- service: No Current occupational status: unemployed Assessment & Plan Assessment & Plan (1) Morbid obesity: Code(s): E66.01 - Morbid (severe) obesity due to excess calories Plan: Pt has lost 23 lbs and has made alot of changes with her meal plan. Can not exercise yet due to recent lap appy. Exercise - start walking 30 minutes daily for now. Meal plan; 7:30 shake or eggs may have 1 slice 6-4-7 brread decrease salad portion to 6 oz - make her own dressing. add fish 2 days per week Must start SWL classes and finish by next appt with Kerrie Ramesh send me Ren[employer] weights weekly All upcoming appts discussed - MUST get labs done this week - thougth they were scheduled for 05/23. Next appt with me 3 weeks. Patient is still morbidly obese and is not considered stable at this time. I spent minutes in total speaking with the patient via video conference counseling , reviewing records and charting in patients chart. . Orders: Orders RT home sleep study Today E66.01 - Morbid (severe) obesity due to excess calories, G47.33 - Obstructive sleep apnea (adult) (pediatric) Telehealth Telehealth Location of provider rendering services: practice address Location of patient: address on file Patient Identification confirmed using: Name, : Yes Telehealth method: video Patient verbally consented to treatment: Yes Patient verbally consented to billing insurance company: Yes Patient informed of any privacy concerns related to visit: Yes Coding Level of Care Code Tele Est Pt Level 4 (06701) Diagnoses Morbid obesity E66.01
[2023-05-13 08:57] VITALS: BMI 47.6
== END 2023-05-13 09:12 | disposition home or self-care (01) ==
LOC: HO.HBS 09:09
PROVIDERS: PCP Internal Medicine; Visit Provider Physician Assistant
DX: E66.01 Morbid (severe) obesity due to excess calories (principal); Z68.42 Body mass index [BMI] 45.0-49.9, adult
CPT/HCPCS: 99214

== ENCOUNTER → 2023-05-13 08:30 | Outpatient (BNVA) | payer OTHER, SELFPAY | PROVIDERS: PCP Internal Medicine; Visit Provider Physician Assistant | DX: G47.33 Obstructive sleep apnea (adult) (pediatric) (principal); E66.01 Morbid (severe) obesity due to excess calories ==

== ENCOUNTER 2023-05-21 08:06 | Outpatient (REF) | payer OTHER, SELFPAY ==
--- NOTE | ~2023-05-21 | FL_ITS ---
EXAMINATION: XR FLUOROSCOPY UPPER GI WITH AIR CLINICAL INFORMATION: Morbid obesity; preoperative bariatric. No specific symptoms. COMPARISON: None TECHNIQUE: Fluoroscopic air contrast upper GI examination was performed utilizing standard techniques with thin and thick barium and effervescent granules. Numerous spot images were obtained. FINDINGS: Hypopharyngeal structures appear normal without evidence of mass or diverticulum. There was no significant cricopharyngeal achalasia. Dual and single contrast images of the esophagus demonstrate a mildly patulous appearing esophagus. Normal contour and mucosal pattern. No evidence of stricture, mass, or ulcerations identified. Esophageal peristalsis was normal. Probable tiny type I hiatus hernia. Episodic gastroesophageal reflux was seen during the course of the examination to the level of the aortic arch, only seen in the LPO position. Dual contrast and single contrast images of the stomach demonstrated normal contour and mucosal pattern without evidence of mass, ulceration, or other abnormality. Contrast freely passed into the gastric antrum and duodenal bulb without delay. Single and air-contrast images of the duodenal bulb demonstrate no abnormality. The duodenal sweep has a normal appearance, course, and mucosal fold appearance. The imaged proximal jejunum has a normal fold pattern and caliber. FLUOROSCOPY TIME: 3 minutes 5 seconds Number of Spot Images: 6 fluoroscopic spot image hold cine runs; 12 fluoroscopic spot images taken. DOSE AREA PRODUCT: [id number] uGy-m2 (microgray-meter squared) FL/FL upper GI w air IMPRESSION: 1. Mildly patulous esophagus which is otherwise normal in appearance and function. 2. Mild gastroesophageal reflux noted during the exam to the level of the aortic arch, in the LPO position. 3. Possible small type I hiatus hernia versus prominent esophageal vestibule. 4. Normal-appearing stomach, duodenal bulb, duodenal sweep, and proximal jejunum.
--- NOTE | ~2023-05-21 | US_ITS ---
EXAMINATION: US COMPLETE ABDOMEN WITH LIVER ELASTOGRAPHY CLINICAL INFORMATION: Obesity. COMPARISON: CT scan of the abdomen and pelvis dated April 26, 2023. TECHNIQUE: Real-time imaging of the abdominal viscera. Noninvasive ultrasound liver fibrosis assessment is performed using Floridalma ElastPQ point quantification shear wave elastography (2D-SWE) with a C5-2 MHz transducer. Multiple elastography samples are obtained. FINDINGS: Limited by patient body habitus. PANCREAS: Suboptimally visualized. Head and body appear grossly unremarkable. Tail not visualized. ABDOMINAL AORTA: The proximal, middle, and distal aortic segments are unremarkable in caliber. INFERIOR VENA CAVA: Visualized portions appear normal. LIVER: The liver demonstrates normal size, contour and echogenicity. No focal lesion or intrahepatic biliary duct dilatation identified. The right lobe measures 16.9 cm in length. The left lobe measures 9.3 cm in length. Portal flow is towards the liver (hepatopetal). Shear wave liver elastography median stiffness is 1.11 m/s (reference: normal median stiffness is 1.3 m/s or less). IQR/median stiffness to assess sampling precision is 0.57 (reference: good quality data set is IQR/median stiffness of 0.15 or less). GALLBLADDER: Approximately 2 cm gallstone. No evidence of gallbladder wall thickening, hyperemia, or pericholecystic fluid. COMMON BILE DUCT: Could not be visualized by the technologist. RIGHT KIDNEY: No hydronephrosis. No renal calculi or focal parenchymal lesion identified. The kidney measures 12.3 cm in maximum dimension. LEFT KIDNEY: No hydronephrosis. No renal calculi or focal parenchymal lesion identified. The kidney measures 12.7 cm in maximum dimension. SPLEEN: The spleen measures 11.6 cm in maximum dimension. FREE FLUID: None. US/US abdomen comp w elastography IMPRESSION: Limited by patient body habitus. Liver elastography: Although measurements suggest a high probability of normal liver stiffness, there is statistical variability of the sampling which decreases accuracy. REFERENCE: Society of Radiologists in Ultrasound Liver Stiffness Thresholds (2020): LIVER STIFFNESS THRESHOLDS: *Liver Stiffness equal or less than 1.3 m/s: High probability of being normal. *Liver Stiffness less than 1.7 m/s: In the absence of other known clinical signs, rules out compensated advanced chronic liver disease. *Liver Stiffness 1.7-2.1 m/s: Suggestive of compensated advanced chronic liver disease but need further test for confirmation. *Liver Stiffness over 2.1 m/s: Rules in compensated advanced chronic liver disease. *Liver Stiffness over 2.4 m/s: Suggestive of clinically significant portal hypertension. QUALITY OF DATA SET: *IQR/Median value equal or less than 0.15 implies a quality data set. *IQR/Median value over 0.15 implies a poor quality data set. SIGNIFICANT CHANGE FROM PRIOR EXAM: Significant change if liver stiffness measurement is 10% or greater from prior exam. OTHER CONSIDERATIONS: The stage of liver fibrosis may be overestimated in the setting of acute hepatitis, liver inflammation, elevated liver function tests, hepatic vascular congestion, obstructive cholestasis, non-fasting state, and infiltrative diseases such as amyloidosis and lymphoma. In some patients with NAFLD, the liver stiffness thresholds for compensated advanced chronic liver disease may be lower. In causes other than viral hepatitis and NAFLD, liver stiffness thresholds are not well established.
[2023-05-21 08:27] LABS: MANUAL DIFF FLAG NO
[2023-05-21 09:01] LABS: Basophils Percent Auto 0.7 % (0-2); Eosinophils Absolute Auto 0.3 X10*3/uL (0.0-0.4); Eosinophils Percent Auto 5.5 % (0-4); Hematocrit 41.8 % (37.0-47.0); Hemoglobin 13.2 g/dl (12.0-16.0); Imm Gran Abs Auto 0.01 X10*3/uL (0.00-0.03); Imm Gran Pct Auto 0.2 % (0.0-0.4); Lymphocytes Absolute Auto 2.5 X10*3/uL (1.2-4.9); Lymphocytes Percent Auto 42.4 % (20-40); Mean Corpuscular HGB Conc 31.6 g/dl (31.0-35.0); Mean Corpuscular Hemoglobin 27.8 pg (27.0-33.0); Mean Corpuscular Volume 88.2 fL (80.0-98.0); Monocytes Absolute Auto 0.5 X10*3/uL (0.1-1.2); Monocytes Percent Auto 9.1 % (2-11); Neutrophils Absolute Auto 2.5 x10*3/uL (2.0-8.3); Neutrophils Percent Auto 42.1 % (45-73); Platelet Count 240 X10*3/uL (160-400); Red Blood Count 4.74 X10*6/uL (4.20-5.50); Red Cell Distribution Width 12.4 % (11.0-16.0); White Blood Count 5.8 X10*3/uL (4.8-10.8)
[2023-05-21 09:04] LABS: Estimated Average Glucose 111 mg/dL; Hemoglobin A1c % 5.5 % (<6.0)
[2023-05-21 09:44] LABS: Alanine Aminotransferase 20 U/L (0-31); Albumin Level 3.7 g/dL (3.5-5.0); Alkaline Phosphatase 57 U/L (39-117); Anion Gap 12 (12-20); Aspartate Amino Transferase 16 U/L (5-31); Bilirubin Total 0.5 mg/dL (0.0-1.0); Blood Urea Nitrogen 16 mg/dL (9-16); C Reactive Protein 0.65 mg/dL (< or = 0.50); Calcium 8.9 mg/dL (8.4-10.2); Carbon Dioxide 21 mmol/L (22-29); Chloride 111 mmol/L (96-108); Cholesterol 163 mg/dL (<200); Estimated Glomerular Filt Rate > 60; Glucose Random 105 mg/dL (60-115); HDL Cholesterol 34 mg/dL (>40); Iron 61 mcg/dL (30-160); LDL Cholesterol Calculated 109 mg/dL (<100); Percent Iron Saturation 25 % (15-50); Potassium 3.9 mmol/L (3.3-5.1); Sodium 140 mmol/L (135-145); Total Iron Binding Capacity 246 mcg/dL (228-428); Total Protein 6.6 g/dL (6.5-8.0); Triglycerides 103 mg/dL (<150); Unsaturated Iron Binding 185 ug/dL
[2023-05-21 09:53] LABS: Ferritin 192 ng/mL (10-250); Insulin 26 uU/mL (2-29); TSH reflex Free T4 1.02 uIU/mL (0.32-4.0); Vitamin D 25-OH Total 32.2 ng/mL (>30)
[2023-05-21 10:04] LABS: Folate 6.2 ng/mL (> or = 4.0); Vitamin B12 357 pg/mL (200-900)
[2023-05-23 16:19] LABS: Calcium (PTHI) 8.7 mg/dL (8.6-10.2); PTHI 45 pg/mL (16-77)
[2023-05-25 02:18] LABS: Zinc 61 mcg/dL (60-130)
[2023-05-26 14:54] LABS: Vitamin B1 8 nmol/L (8-30)
[2023-05-28 04:55] LABS: Vitamin A 45 mcg/dL (38-98)
== END 2023-05-21 08:07 | disposition home or self-care (01) ==
LOC: HO.US 08:06
PROVIDERS: PCP Internal Medicine; Visit Provider Physician Assistant
DX: Z01.818 Encounter for other preprocedural examination (principal); E66.01 Morbid (severe) obesity due to excess calories; J45.909 Unspecified asthma, uncomplicated; I48.91 Unspecified atrial fibrillation; G47.33 Obstructive sleep apnea (adult) (pediatric)
CPT/HCPCS: 36415; 74246; 76705; 76981; 80053; 80061; 82306; 82607; 82728; 82746; 83036; 83525; 83540; 83970; 84425; 84443; 84590; 84630; 85025; 86140

== ENCOUNTER → 2023-05-21 09:00 | Outpatient (BNV) | payer OTHER, SELFPAY | PROVIDERS: PCP Internal Medicine; Visit Provider Radiology Diagnostic Radiology | DX: K21.9 Gastro-esophageal reflux disease without esophagitis (principal) | CPT/HCPCS: 74246 ==

== ENCOUNTER → 2023-05-23 15:16 | Outpatient (BNVA) | payer OTHER, SELFPAY | PROVIDERS: PCP Internal Medicine; Visit Provider Dietitian, Registered | DX: E66.9 Obesity, unspecified (principal); Z71.3 Dietary counseling and surveillance | CPT/HCPCS: 97803 ==

== ENCOUNTER 2023-06-05 15:41 | Outpatient (AMB) | payer OTHER, SELFPAY ==
--- NOTE | 2023-06-05 16:05 | MHC.WMTHER ---
Intake Intake Visit Reasons: TV F/U Allergies No Known Allergies [No Known Allergies*] Allergy (Verified 05/03/23 10:16) [facility] Medical History Sleep apnea, obstructive Asthma Atrial fibrillation Surgical History No pertinent past surgical history Family History Other Adopted Social History Household Members: Family Housing: Apartment Do you presently have visiting nurse or other home services: No Alcohol intake: former Patient Tobacco Use Status: Former Tobacco user Quit Date: 2005 Years Smoked: 15 +/- service: No Current occupational status: unemployed Behavioral Health Assessment Weight Management Therapy Therapy Notes Details Patient stated that she is struggling in her family life, communication is not good with her and she now sees how this has affected their daughter. Talked about her struggles on the weekends with the meal plan and lifestyle changes. Patient is looking to have weight loss surgery to help improve her health and quality of life. She stated that she struggles to do everyday tasks and things she enjoys. Patient stated that she sees a therapist Brooklynn Fishman [phone] (release on file) and has been in therapy most of her life. Pt stated that she works on interpersonal issues and relationships in therapy. No history of any problems with drugs or alcohol. She has no history of inpatient psychiatric admissions. Presenting Concerns Referral Source provider Reason for referral weight loss surgery evaluation Precipitating Event obesity Living Situation Current Living Situation Own At risk of losing current housing? No Satisfied with current living situation? Yes Comments Pt lives with her and her youngest daughter who is 16. Food/Weight/Diet Expectations of change weight loss and maintenance History/Relationship with food Patient stated that she has always had an addictive relationship with food, if she craves something she has to have it and nothing can stop her. If she is eating something that is good she wont stop eating. Pizza, pasta, occasionally Divehi food, grinders, cream based soups, lasagna, mashed potatoes, eating out twice a week. Sometimes would also drink sodas and juice. Pt stated that she would eat two large plates of food. History/Relationship with weight She reported that she has struggled with her weight most of her life. Currently at her heaviest. History/Relationship with dieting Pt stated that she has only tried to eat heathier no fad diets. She reported loosing 70lbs years ago when she was going through a difficult time and was not eating due to depression. Binge Eating Do you frequently eat large amounts of food in short periods of time, not feeling physically hungry? Yes Do you feel out of control when you eat a large amount of food in a short period of time? Yes Do you eat large amounts of food rapidly and typically alone? Yes Night Eating Do you wake up at least once during the night to eat? No If you wake up in the night, do you find that it is necessary to eat something in order to fall back asleep? No Do you have little or no appetite in the morning and feel very hungry in the evening, often overeating between dinner and when you go to bed? No Social History Family history and relationship Patient was born in [facility] and raised in the [place] [facility]. She reported being in foster care from age 5 then was adopted at age 13. She has one bio sister and several half siblings but does not talk with them Parental/Familial caustic loader obligations teenage daughter Developmental history and status no known issues in this area. Social support , grandmother, oldest daughter, best friend Cultural/Ethnic information Legal Involvement and History Current or historical involvement with the legal system? none Education Preferred learning style Auditory, Verbal, Written, Learn by doing and Visual Currently enrolled in educational program? No Interested in further educational program? 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 No Financial Situation Describe current financial situation Occasional struggle Financial assistance? None Service Service? No Mental Health and Addiction Treatment Current/Past substance abuse? No Current/Past addictive behavior concerns? No Medical and Physical Health Summary Physical exam in the last year? No Pain Screening Current pain? No Pain in the last few months? No Medications Is the patient compliant with medications? Yes Does the patient have Aguayo Guardian in place? Not applicable Does the patient use complimentary health approaches? No Trauma/Abuse History History of trauma? Yes Assessment & Plan Assessment & Plan (1) Major depressive disorder, recurrent, moderate: Code(s): F33.1 - Major depressive disorder, recurrent, moderate (2) Morbid obesity: Code(s): E66.01 - Morbid (severe) obesity due to excess calories Plan Patient has depression and some binge eating symptoms. patient reported chronic stress and feeling overwhelmed in her everyday life. Also dealing with some interpersonal struggles. Her therapist will be contacted and she will be seen again. Telehealth Telehealth Location of provider rendering services: practice address Location of patient: other Patient Identification confirmed using: Name, : Yes Telehealth method: voice only Patient verbally consented to treatment: Yes Patient verbally consented to billing insurance company: Yes Patient informed of any privacy concerns related to visit: Yes Minutes spent on Phone/Video with Pt.: 45 Coding Level of Care Code Tele Psytx 45 mins (84752) Diagnoses Major depressive disorder, recurrent, moderate F33.1 Morbid obesity E66.01 Time Spent (min) 45
== END 2023-06-05 16:05 | disposition home or self-care (01) ==
LOC: HO.HBST 15:41
PROVIDERS: PCP Internal Medicine; Visit Provider Counselor Mental Health
DX: F33.1 Major depressive disorder, recurrent, moderate (principal); E66.01 Morbid (severe) obesity due to excess calories
CPT/HCPCS: 90834

== ENCOUNTER → 2023-06-05 15:41 | Outpatient (BNVA) | payer OTHER, SELFPAY | PROVIDERS: PCP Internal Medicine; Visit Provider Counselor Mental Health ==

== ENCOUNTER 2023-06-20 15:00 | Outpatient (AMB) | payer OTHER, SELFPAY ==
--- NOTE | 2023-06-20 14:59 | A.OFFVIS_ITS ---
Intake VS Expanded 06/20/23 15:24 Height 5 ft 8 in Weight 317 lb BMI 48.2 Intake Visit Reasons: VIDEO F/U SWL Allergies No Known Allergies [No Known Allergies*] Allergy (Verified 05/03/23 10:16) HPI HPI Comments History of Present Illness Details Starting weight was 336.4 lbs on 03/28/23. TBWL is 19.4 lbs or 5.7% TBWL. She is not following meal plan completely but she has learned quite a bit and is much more mindful of her eating habits. Having a hard time of weekends. [place] app[place] [facility] [place], now cleared to exercise. Meal plan: wakes up 5:30 am 7:30 am - 3 eggs and vegetables OR yogur t/bar 10:30 - shake - Organically Inspired 22 grams with skim milk 1 pm - bar or yogurt - or the eggs from the morning 6 pm - 6oz chicken mostly - and vegetabl es - having a hard time with recipes Does not have regular schedule on weekends. Exercise plan:Has URI now. Has not started exercise yet, due to lung issues. Pre op work up completed as follows: SWL classes - 04/02 appts - follow up needs to be scheduled, 06/27 RD appts - follow up on 05/23, needs follow up H pylori - negative Labs - normal CXR - 1. Bilateral low lung volumes. 2. Accentuation of the pulmonary vascul ature. 3. Streaky radiopacities involving the bilateral mid lung degroot andright lung base may reflect atelectasis. CTA - negative on 04/26 ECG - normal ULS - liver R 1.9, L 9.3 UGI -normal Cardiology - 07/29 SS - persistent desaturation, needs in lab CPAP titration study,she spoke with them today and will get to her. [facility] Medical History Sleep apnea, obstructive Asthma Atrial fibrillation Surgical History No pertinent past surgical history Family History Other Adopted Social History Household Members: Family Housing: Apartment Do you presently have visiting nurse or other home services: No Alcohol intake: former Patient Tobacco Use Status: Former Tobacco user Quit Date: 2005 Years Smoked: 15 +/- service: No Current occupational status: unemployed Assessment & Plan Assessment & Plan (1) Morbid obesity: Code(s): E66.01 - Morbid (severe) obesity due to excess calories Plan: Pt has lost 5.7% and will complete pre op work up Tiffanie and Kerrie follow ups. Is being schedule for sleep titration in lab study. Meal pna- we discussed how to change meal times on the weekinds - eating every 3-4 hours apart same foods but different times ok. Exercse - has not started yet due ot astma exacerbation - discussed starting slowly when she can. Did not seem interested in discussing this. Reminded to text me weekly weights and to weight herself on days of her appts. next appt 3 weeks, RD appt being rescheduled today. Patient is still morbidly obese and is not considered stable at this time. I spent 30 minutes in total speaking with the patient via video conference counseling , reviewing records and charting in patients chart. . (2) Sleep apnea, obstructive: Code(s): G47.33 - Obstructive sleep apnea (adult) (pediatric) Telehealth Telehealth Location of provider rendering services: practice address Patient Identification confirmed using: Name, : Yes Telehealth method: voice only Patient verbally consented to treatment: Yes Patient verbally consented to billing insurance company: Yes Patient informed of any privacy concerns related to visit: Yes Coding Level of Care Code Tele Est Pt Level 4 (73371) Diagnoses Morbid obesity E66.01 Sleep apnea, obstructive G47.33
[2023-06-20 15:24] VITALS: BMI 48.2
== END 2023-06-20 15:36 | disposition home or self-care (01) ==
LOC: HO.HBS 15:35
PROVIDERS: PCP Internal Medicine; Visit Provider Physician Assistant
DX: E66.01 Morbid (severe) obesity due to excess calories (principal); Z68.42 Body mass index [BMI] 45.0-49.9, adult; G47.33 Obstructive sleep apnea (adult) (pediatric)
CPT/HCPCS: 99214

== ENCOUNTER → 2023-06-20 15:00 | Outpatient (BNVA) | payer OTHER, SELFPAY | PROVIDERS: PCP Internal Medicine; Visit Provider Physician Assistant ==

== ENCOUNTER 2023-07-01 15:18 | Outpatient (AMB) | payer OTHER, SELFPAY ==
--- NOTE | 2023-08-15 14:38 | A.OFFWM_ITS ---
Intake Intake Visit Reasons: (TV) BH F/U Allergies No Known Allergies [No Known Allergies*] Allergy (Verified 07/29/23 15:54) [facility] Medical History Sleep apnea, obstructive Asthma Atrial fibrillation Surgical History No pertinent past surgical history Family History Other Adopted Social History Household Members: Family Housing: Apartment Do you presently have visiting nurse or other home services: No Alcohol intake: former Comment: chronic Patient Tobacco Use Status: Former Tobacco user Quit Date: 2005 Years Smoked: 15 +/- service: No Current occupational status: unemployed Behavioral Health Assessment Weight Management Therapy Therapy Notes Details Patient is looking to have weight loss surgery to help improve her health and quality of life. She stated that she struggles to do everyday tasks and things she enjoys. Patient stated that she sees a therapist Brooklynn Fishman [phone] (release on file) and has been in therapy most of her life. Pt stated that she works on interpersonal issues and relationships in therapy. No history of any problems with drugs or alcohol. She has no history of inpatient psychiatric admissions. Presenting Concerns Referral Source provider Reason for referral weight loss surgery evaluation Precipitating Event obesity Living Situation Current Living Situation Own At risk of losing current housing? No Satisfied with current living situation? Yes Comments Pt lives with her and her youngest daughter who is 16. Food/Weight/Diet Expectations of change weight loss and maintenance History/Relationship with food Patient stated that she has always had an addictive relationship with food, if she craves something she has to have it and nothing can stop her. If she is eating something that is good she wont stop eating. Pizza, pasta, occasionally Bhutanese food, grinders, cream based soups, lasagna, mashed potatoes, eating out twice a week. Sometimes would also drink sodas and juice. Pt stated that she would eat two large plates of food. History/Relationship with weight She reported that she has struggled with her weight most of her life. Currently at her heaviest. History/Relationship with dieting Pt stated that she has only tried to eat heathier no fad diets. She reported loosing 70lbs years ago when she was going through a difficult time and was not eating due to depression. Binge Eating Do you frequently eat large amounts of food in short periods of time, not feeling physically hungry? Yes Do you feel out of control when you eat a large amount of food in a short period of time? Yes Do you eat large amounts of food rapidly and typically alone? Yes Night Eating Do you wake up at least once during the night to eat? No If you wake up in the night, do you find that it is necessary to eat something in order to fall back asleep? No Do you have little or no appetite in the morning and feel very hungry in the evening, often overeating between dinner and when you go to bed? No Social History Family history and relationship Patient was born in [facility] and raised in the [place]. She reported being in foster care from age 5 then was adopted at age 13. She has one bio sister and several half siblings but does not talk with them Parental/Familial ip architect obligations teenage daughter Developmental history and status no known issues in this area. Social support , grandmother, oldest daughter, best friend Cultural/Ethnic information Legal Involvement and History Current or historical involvement with the legal system? none Education Preferred learning style Auditory, Verbal, Written, Learn by doing and Visual Currently enrolled in educational program? No Interested in further educational program? 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 Employment Employment Status [employer] Wants help to find employment? No Financial Situation Describe current financial situation Occasional struggle Financial assistance? None Service Service? No Mental Health and Addiction Treatment Current/Past substance abuse? No Current/Past addictive behavior concerns? No Medical and Physical Health Summary Physical exam in the last year? No Pain Screening Current pain? No Pain in the last few months? No Medications Is the patient compliant with medications? Yes Does the patient have Aguayo Guardian in place? Not applicable Does the patient use complimentary health approaches? No Trauma/Abuse History History of trauma? Yes Assessment & Plan Assessment & Plan (1) Major depressive disorder, recurrent, moderate: Code(s): F33.1 - Major depressive disorder, recurrent, moderate (2) Morbid obesity: Code(s): E66.01 - Morbid (severe) obesity due to excess calories Plan Patient has depression and some binge eating symptoms. patient reported chronic stress and feeling overwhelmed in her everyday life. Also dealing with some interpersonal struggles. Her therapist will be contacted and she will be seen again. Telehealth Telehealth Location of provider rendering services: practice address (home address, [facility] ) Location of patient: address on file Patient Identification confirmed using: Name, : Yes Telehealth method: voice only Patient verbally consented to treatment: Yes Patient verbally consented to billing insurance company: Yes Patient informed of any privacy concerns related to visit: Yes Minutes spent on Phone/Video with Pt.: 20 Coding Level of Care Code Tele Psytx 30 mins (31709) Diagnoses Major depressive disorder, recurrent, moderate F33.1 Morbid obesity E66.01 Time Spent (min) 20
== END 2023-08-15 14:38 | disposition home or self-care (01) ==
LOC: HO.HBST 15:18
PROVIDERS: PCP Internal Medicine; Visit Provider Counselor Mental Health
DX: F33.1 Major depressive disorder, recurrent, moderate (principal); E66.01 Morbid (severe) obesity due to excess calories
CPT/HCPCS: 90832

== ENCOUNTER → 2023-07-01 15:18 | Outpatient (BNVA) | payer OTHER, SELFPAY | PROVIDERS: PCP Internal Medicine; Visit Provider Counselor Mental Health ==

== ENCOUNTER → 2023-07-05 14:07 | Outpatient (BNVA) | payer OTHER, SELFPAY | PROVIDERS: PCP Internal Medicine; Visit Provider Dietitian, Registered | DX: E66.9 Obesity, unspecified (principal); Z68.42 Body mass index [BMI] 45.0-49.9, adult | CPT/HCPCS: 97803 ==

== ENCOUNTER 2023-07-29 15:42 | Outpatient (AMB) | payer OTHER, SELFPAY ==
[2023-07-29 15:53] VITALS: BP 140/70; PULSE 66; BMI 47.3
--- NOTE | 2023-07-29 15:53 | MHC.OFFVIS ---
Intake Vital Signs 07/29/23 15:53 Height 5 ft 8 in Weight 310 lb 13.628 oz BMI 47.3 BP 140/70 H Blood Pressure Location Lt brachial Position Sitting Pulse 66 Pulse Source Pulse Oximeter Intake Visit Reasons: 6 mth f/u Intake Note: 6 mth f/up patient its fine Mail Room Clerk Required: No Accompanied by: Self / Same As Patient Allergies No Known Allergies [No Known Allergies*] Allergy (Verified 07/29/23 15:54) Medication List - Last Reconciled 07/29/23 by Fly Noguera MD amoxicillin-pot clavulanate 875-125 mg 1 tab PO BID apixaban (Eliquis) 5 mg PO BID flecainide 50 mg PO BID furosemide (Lasix) 20 mg PO DAILY PRN levonorgestrel (Mirena) intrauterine metoprolol succinate ER 25 mg See Protocol PO DAILY montelukast 10 mg PO BEDTIME HPI HPI Comments History of Present Illness Details Pleasant 48-year-old female with paroxysmal atrial fibrillation. She underwent cardioversion and was started on flecainide and metoprolol along with Eliquis. She is on anticoagulation with Eliquis. She is doing well. She is asking if she can be referred to weight management. 07/29/2023: She returns for follow-up. She has been sick with some sinus infection and is getting Augmentin currently. She has occasional palpitations when she drinks alcohol. Blood pressure is mildly elevated. She is saying she has not been using any decongestants. Currently pulse is regular and she is in sinus rhythm. [facility] Medical History Sleep apnea, obstructive Asthma Atrial fibrillation Surgical History No pertinent past surgical history Family History Other Adopted Social History Household Members: Family Housing: Apartment Do you presently have visiting nurse or other home services: No Alcohol intake: former Comment: chronic Patient Tobacco Use Status: Former Tobacco user Quit Date: 2005 Years Smoked: 15 +/- service: No Current occupational status: unemployed Physical Exam Vital Signs: BMI result Body Mass Index 47.3 GENERAL APPEARANCE: in no acute distress, pleasant. NECK/THYROID: no carotid bruit, no jugular venous distention. SKIN: no suspicious lesions, warm and dry. HEART: no murmurs, regular rate and rhythm. LUNGS: clear to auscultation bilaterally. ABDOMEN: soft, nontender. EXTREMITIES: no edema. PERIPHERAL PULSES: equal. NEUROLOGIC: No gross deficits, AAO X 3 Assessment & Plan Assessment & Plan (1) Atrial fibrillation: Comment: Code(s): I48.91 - Unspecified atrial fibrillation Qualifiers: Atrial fibrillation type: paroxysmal Qualified Code(s): I48.0 - Paroxysmal atrial fibrillation Plan Pleasant 48-year-old female who is here for follow-up. She has background history of paroxysmal atrial fibrillation. She has been maintained with flecainide 50 mg twice a day and is currently taking apixaban 5 mg twice a day for anticoagulation. She has been tolerating the medications well. She is being treated for sinus infection currently with Augmentin. Blood pressure is mildly elevated. Currently I do not want to change medications because she is sick. She may have repeat blood workup with her primary care physician and we can reassess the blood pressure. She will continue follow-up with us in 4-6 months. Thank you for allowing me to participate in the care of your patient. Please feel free to contact me if you have any questions. Coding Level of Care Code Est Pt Level 3 (86780) Diagnoses Atrial fibrillation I48.0 Atrial fibrillation type: paroxysmal
== END 2023-07-29 16:18 | disposition home or self-care (01) ==
PROVIDERS: PCP Internal Medicine; Visit Provider Internal Medicine Cardiovascular Disease
DX: I48.0 Paroxysmal atrial fibrillation (principal)
CPT/HCPCS: 99213

== ENCOUNTER → 2023-07-29 15:42 | Outpatient (BNVA) | payer OTHER, SELFPAY | PROVIDERS: PCP Internal Medicine; Visit Provider Internal Medicine Cardiovascular Disease | DX: I48.0 Paroxysmal atrial fibrillation (principal); Z79.01 Long term (current) use of anticoagulants | CPT/HCPCS: 99212 ==

== ENCOUNTER → 2023-08-05 19:00 | Outpatient (BNV) | payer OTHER, SELFPAY | PROVIDERS: PCP Internal Medicine; Visit Provider Psychiatry & Neurology Neurology | DX: R06.83 Snoring (principal) | CPT/HCPCS: 95810 ==

== ENCOUNTER → 2023-08-05 19:30 | Outpatient (REF) | payer OTHER, SELFPAY | LOC: HO.SL 19:30 | PROVIDERS: PCP Internal Medicine; Visit Provider Physician Assistant | DX: G47.33 Obstructive sleep apnea (adult) (pediatric) (principal); E66.01 Morbid (severe) obesity due to excess calories; I48.0 Paroxysmal atrial fibrillation | CPT/HCPCS: 95810 ==

== ENCOUNTER 2023-09-26 16:00 | Outpatient (AMB) | payer OTHER, SELFPAY ==
--- NOTE | 2023-09-26 15:03 | A.OFFVIS_ITS ---
Intake VS Expanded 09/26/23 16:12 Height 5 ft 8 in Weight 317 lb BMI 48.2 Intake Visit Reasons: video SWL FOLLOW UP Allergies No Known Allergies [No Known Allergies*] Allergy (Verified 07/29/23 15:54) HPI HPI Comments History of Present Illness Details Starting weight was 336.4 lbs on 03/28/23. Last appt with me was on Jun 20 . 7 lb weight gain. Pt is struggling with mental health issues and stopped program - does not want to stop. Naps at 7:30 - home at 5pm. Meal plan: wakes up 5:30 am,does nto like bars. 7:30 am - yogurt 10:30 - shake - Organically Inspired 22 grams with skim milk 1 pm - salad with chicken or tuna Or egg s with vegetable 3:30 - shake 6 pm - 6oz chicken mostly - and vegetabl es - having a hard time with recipes Organize and prep food for next day. Laundry or crafing after dinner Exercise plan: LS 2 miles 5 d/week before dinner. Weekends - LS 3 miles OR hike with 350 calories Pre op work up completed as follows: SWL classes - 04/02 appts - follow up needs to be scheduled, 06/27- Tiffanie was going to speak to her therapist and follow up. I will contact Tiffanie RD appts - follow up on 05/23, needs follow up, cleared H pylori - negative Labs - normal CXR - 1. Bilateral low lung volumes. 2. Accentuation of the pulmonary vascul ature. 3. Streaky radiopacities involving the bilateral mid lung degroot andright lung base may reflect atelectasis. CTA - negative on 04/26 ECG - normal ULS - liver R 1.9, L 9.3 UGI -normal Cardiology - 07/29, no change in treatment for pAFIB and HTN. SS - persistent desaturation, needs in lab CPAP titration study [facility] Medical History Sleep apnea, obstructive Asthma Atrial fibrillation Surgical History No pertinent past surgical history Family History Other Adopted Social History Household Members: Family Housing: Apartment Do you presently have visiting nurse or other home services: No Alcohol intake: former Comment: chronic Patient Tobacco Use Status: Former Tobacco user Quit Date: 2005 Years Smoked: 15 +/- service: No Current occupational status: unemployed Assessment & Plan Assessment & Plan (1) Morbid obesity: Code(s): E66.01 - Morbid (severe) obesity due to excess calories Plan: Pt has not been able to follow her meal plan due to some mental health issues that she sees a therapist for, will have Tiffanie follow up with her also. Needs to focus on starting an exercise routine to helpher sleep better (only sleeps 5 hours per night - affecting the rest of her life) 7:30 am - yogurt 10:30 - shake - Organically Inspired 22 grams with skim milk 1 pm - bar or yogurt - or the eggs from the morning 3pm -shake 6 pm - 6oz chicken mostly - and vegetables - having a hard time with recipes Encouraged her to text me weekly weights for support. Will focus on exercise and sleep now - food later. Next appt with me in 3 weeks. Patient is still morbidly obese and is not considered stable at this time. I spent 30 minutes in total speaking with the patient via video conference counseling , reviewing records and charting in patients chart. . Telehealth Telehealth Location of provider rendering services: practice address Location of patient: address on file Patient Identification confirmed using: Name, : Yes Telehealth method: video Patient verbally consented to treatment: Yes Patient verbally consented to billing insurance company: Yes Patient informed of any privacy concerns related to visit: Yes Coding Level of Care Code Tele Est Pt Level 4 (46389) Diagnoses Morbid obesity E66.01
[2023-09-26 16:12] VITALS: BMI 48.2
== END 2023-09-26 16:32 | disposition home or self-care (01) ==
LOC: HO.HBS 16:06
PROVIDERS: PCP Internal Medicine; Visit Provider Physician Assistant
DX: E66.01 Morbid (severe) obesity due to excess calories (principal); Z68.42 Body mass index [BMI] 45.0-49.9, adult
CPT/HCPCS: 99214

== ENCOUNTER → 2023-09-26 16:00 | Outpatient (BNVA) | payer OTHER, SELFPAY | PROVIDERS: PCP Internal Medicine; Visit Provider Physician Assistant ==

== ENCOUNTER 2023-10-17 15:30 | Outpatient (AMB) | payer OTHER, SELFPAY ==
--- NOTE | 2023-10-17 15:34 | MHC.OFFVISWM ---
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 Still struggling with adherence to our meal plan - is bored with food being bland . Pt is very upset today, fearing that she will not be able to stick to our meal and exercise plans over the oysterman. Plans to cll her therapist today for more support, never had follow up with Tiffanie. Meal plan- sounds like she is skipping meals Not exercising due to an injury but has lost 7 lbs over the last 3 weeks. Pre op work up completed as follows: SWL classes - 04/02 appts - follow up needs to be scheduled, 06/27- Tiffanie was going to speak to her therapist and follow up. I will contact Tiffanie RD appts - follow up on 05/23, needs follow up, cleared H pylori - negative Labs - normal CXR - 1. Bilateral low lung volumes. 2. Accentuation of the pulmonary vasculature. 3. Streaky radiopacities involving the bilateral mid lung degroot andright lung base may reflect atelectasis. CTA - negative on 04/26 ECG - normal ULS - liver R 1.9, L 9.3 UGI -normal Cardiology - 07/29, no change in treatment for pAFIB and HTN. SS - persistent desaturation, needs in lab CPAP titration study - scheduled for October 24 [facility] Medical History Sleep apnea, obstructive Asthma Atrial fibrillation Surgical History No pertinent past surgical history Family History Other Adopted Social History Household Members: Family Housing: Apartment Do you presently have visiting nurse or other home services: No Alcohol intake: former Comment: chronic Patient Tobacco Use Status: Former Tobacco user Quit Date: 2005 Years Smoked: 15 +/- service: No Current occupational status: unemployed Assessment & Plan Assessment & Plan (1) Morbid obesity: Code(s): E66.01 - Morbid (severe) obesity due to excess calories Plan: Patient is very upset today, thinking that she can not continue with adherence to our program, does not want to felel limited in what she can eat. She is being scheduled for an appt with Kerrie to discuss ways of making her food more interesting to her and she will call her therapist for support. We discussed MWL vs SWL - she is clear that she wants bariatric surgery. She will continue to text me weekly and I will see her again in 4 weeks and at that time re-evaluate what will work best for her. Patient is still morbidly obese and is not considered stable at this time. I spent 30 minutes in total speaking with the patient via video conference counseling , reviewing records and charting in patients chart. . Telehealth Telehealth Location of provider rendering services: practice address Location of patient: address on file Patient Identification confirmed using: Name, : Yes Telehealth method: video Patient verbally consented to treatment: Yes Patient verbally consented to billing insurance company: Yes Patient informed of any privacy concerns related to visit: Yes Coding Level of Care Code Tele Est Pt Level 4 (46312) Diagnoses Morbid obesity E66.01
[2023-10-17 15:35] VITALS: BMI 47.2
== END 2023-10-17 16:08 | disposition home or self-care (01) ==
LOC: HO.HBS 15:40
PROVIDERS: PCP Internal Medicine; Visit Provider Physician Assistant
DX: E66.01 Morbid (severe) obesity due to excess calories (principal); Z68.42 Body mass index [BMI] 45.0-49.9, adult
CPT/HCPCS: 99214

== ENCOUNTER → 2023-10-17 15:30 | Outpatient (BNVA) | payer OTHER, SELFPAY | PROVIDERS: PCP Internal Medicine; Visit Provider Physician Assistant ==

== ENCOUNTER 2023-11-04 15:40 | Outpatient (AMB) | payer OTHER, SELFPAY ==
--- NOTE | 2023-11-04 15:37 | MHC.AMNUTRGE ---
Intake Intake Visit Reasons: VIDEO F/U SWL Allergies No Known Allergies [No Known Allergies*] Allergy (Verified 07/29/23 15:54) HPI Nutrition Presentation Details Starting weight was 336.4 lbs on 03/28/23 current weight 310# Reason for consult elevated BMI Diet Assmnt Details I like foods with sauces and dips - gets bored with the same foods. So I end up going out to eat . Prefers take out, restaurant, etc foods. Also has a hard time remembering to have her shakes/bars etc. Gagging on the bars now. tried setting alarms on her phone but Then I forget to set the alarms wakes up 5:30 am 7:30 am - 3 eggs and vegetables OR yogurt/bar 10:30 - shake - Organically Inspired 22 grams with skim milk 1 pm - bar or yogurt - or the eggs from the morning 6 pm - 6oz chicken mostly - and vegetables - having a hard time with recipes Exrecise: just hiking on the weekends , really dislikes exercise /activity . SWL online classes: completed - today we reviewed post op nutrition Pt has a safety consultant she sees outside the program. Cannot afford certain foods she wants to get . goes to [employer] or [employer] . recommended [employer] right for grocery shopping but she declines. Dietary counseling reduction Diagnosis Nutrition problem #1 overweight/obesity As related to (etiology) #1 excess energy intake and physical inactivity As evidenced by (sign/symptom) #1 high BMI Monitoring/Goals Nutrition problem monitoring total energy intake, level of knowledge/skill, total PRO intake, total CHO intake, weight and oral fluids Outcome progress progressing Learning/Education Readiness to learn good Stages of change action Educational materials provided Yes Most Recent Diabetes Results: No Data to Display [facility] Medical History Sleep apnea, obstructive Asthma Atrial fibrillation Surgical History No pertinent past surgical history Family History Other Adopted Social History Household Members: Family Housing: Apartment Do you presently have visiting nurse or other home services: No Alcohol intake: former Comment: chronic Patient Tobacco Use Status: Former Tobacco user Quit Date: 2005 Years Smoked: 15 +/- service: No Current occupational status: unemployed Assessment & Plan Assessment & Plan (1) Morbid obesity: Code(s): E66.01 - Morbid (severe) obesity due to excess calories Plan see below Patient Instructions: Is really struggling with consistency and would benefit from more support to improve this. Has a lot of self perceived barriers. We also talked about post op nutrition for the first 3 months and beyond. 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 She is open to MW at this time. She will gather more information, and discuss her next steps with Sweta CHOE. Telehealth Telehealth Location of provider rendering services: practice address Location of patient: address on file Patient Identification confirmed using: Name, : Yes Telehealth method: voice only Patient verbally consented to treatment: Yes Patient verbally consented to billing insurance company: Yes Patient informed of any privacy concerns related to visit: Yes Minutes spent on Phone/Video with Pt.: 55 Coding Level of Care Code Nutr Indiv Subseq ([id number]) Diagnoses Morbid obesity E66.01 Time Spent (min) 55
== END 2023-11-04 16:16 | disposition home or self-care (01) ==
LOC: HO.HBS 15:41
PROVIDERS: PCP Internal Medicine; Visit Provider Dietitian, Registered
DX: E66.01 Morbid (severe) obesity due to excess calories (principal)

== ENCOUNTER → 2023-11-04 15:40 | Outpatient (BNVA) | payer OTHER, SELFPAY | PROVIDERS: PCP Internal Medicine; Visit Provider Dietitian, Registered | DX: E66.01 Morbid (severe) obesity due to excess calories (principal) | CPT/HCPCS: 97803 ==

== ENCOUNTER → 2023-11-06 15:41 | Outpatient (BNVA) | payer OTHER, SELFPAY | PROVIDERS: PCP Internal Medicine; Visit Provider Nurse Practitioner Family | DX: R06.83 Snoring (principal); G47.9 Sleep disorder, unspecified; E66.01 Morbid (severe) obesity due to excess calories; Z68.42 Body mass index [BMI] 45.0-49.9, adult | CPT/HCPCS: 99202 ==

== ENCOUNTER 2023-11-18 15:00 | Outpatient (AMB) | payer OTHER, SELFPAY ==
--- NOTE | 2023-11-18 14:12 | A.OFFVIS_ITS ---
Intake Intake Visit Reasons: VIDEO F/U SWL Allergies No Known Allergies [No Known Allergies*] Allergy (Verified 11/06/23 15:57) HPI HPI Comments History of Present Illness Details 48 yo woman has been in our SWL program since March, started at 344.9 lbs. She is not ready for surgery yet. Still has many abnormal eating behaviors. Meal plan - all over the place . still missing meals and then binging. Still eating often from fast food restaurants. Exercise - stopped again, no regular habits. Pre op work up com pleted as follows: SWL classes - 04/02 BH appts - fol low up needs to be scheduled, last s een in July - not cleared R D appts - follow up on 05/23, needs follow up, cleared H pylori - negati ve Labs - normal C XR - 1. Bilater al low lung volume s.2. Accentuation of the pulmonary vasculature.3. St reaky radiopacitie s involving the bi lateral mid lung f ields and right clint ng base may reflec t atelectasis. CTA - negative on 04/26 ECG - normal ULS - liver R 1.9, L 9.3 UGI -annia l Cardiology - 07/29, no change in tr eatment for pAFIB and HTN. SS - pe rsistent desaturat ion, saw sleep med icine and needs a mouth guard and st art magnesium. Gonzalo l follow up with Eunice DANIELS [facility] Medical History (Updated 11/12/23 @ 12:46 by Brenda Khan CNP) Sleep apnea, obstructive Asthma Atrial fibrillation Surgical History (Updated 11/06/23 @ 16:00 by Liana Craft CMA) History of appendectomy No pertinent past surgical history Family History Other Adopted Social History Household Members: Family Housing: Apartment Do you presently have visiting nurse or other home services: No Alcohol intake: current Alcohol intake frequency: holidays/special occasions only Comment: Socially Patient Tobacco Use Status: Former Tobacco user Quit Date: 2005 Years Smoked: 15 +/- service: No Current occupational status: unemployed Assessment & Plan Assessment & Plan (1) Morbid obesity: Code(s): E66.01 - Morbid (severe) obesity due to excess calories Plan: Will continue with MWL now and have a follow up with Tiffanie. Still struggling with eating behaviorus although has made many changes. Restart exercise Work on weekend eating habits. We discussed her needing to be being Ok with discomfort. Next appt with PA in 4 weeks. Patient is still morbidly obese and is not considered stable at this time. I spent 30 minutes in total speaking with the patient via video conference counseling , reviewing records and charting in patients chart. . Telehealth Telehealth Location of provider rendering services: practice address Location of patient: address on file Patient Identification confirmed using: Name, : Yes Telehealth method: video Patient verbally consented to treatment: Yes Patient verbally consented to billing insurance company: Yes Patient informed of any privacy concerns related to visit: Yes Coding Level of Care Code Tele Est Pt Level 4 (38668) Diagnoses Morbid obesity E66.01
== END 2023-11-18 15:31 | disposition home or self-care (01) ==
LOC: HO.HBS 15:12
PROVIDERS: PCP Internal Medicine; Visit Provider Physician Assistant
DX: E66.01 Morbid (severe) obesity due to excess calories (principal); Z68.42 Body mass index [BMI] 45.0-49.9, adult
CPT/HCPCS: 99214

== ENCOUNTER → 2023-11-18 15:00 | Outpatient (BNVA) | payer OTHER, SELFPAY | PROVIDERS: PCP Internal Medicine; Visit Provider Physician Assistant ==

== ENCOUNTER 2023-12-18 13:13 | Outpatient (AMB) | payer OTHER, SELFPAY ==
--- NOTE | 2023-12-18 13:09 | A.OFFVIS_ITS ---
VS Expanded 12/18/23 13:13 Height 5 ft 8 in Weight 321 lb BMI 48.8 Intake Visit Reasons: TV F/U MWL Allergies No Known Allergies [No Known Allergies*] Allergy (Verified 11/06/23 15:57) Medication List - Last Reconciled 12/18/23 by ДМИТРИЙ Murillo apixaban (Eliquis) 5 mg PO BID flecainide 50 mg PO BID levonorgestrel (Mirena) intrauterine metoprolol succinate ER 25 mg See Protocol PO DAILY montelukast 10 mg PO BEDTIME HPI Comments Details: Pt presents in followup for MWL. Starting weight: 344.9 Total weight change: -23.9lbs Pt reports doing good and bad . Doing better with what she eats at work. Bought Paula boxes to help portion out her food. 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 May have lunch meat (turkey or ham), cucumbers, tomatoes, carrots, berries, cheese stick, hummus. Struggles at home, in evenings. Has cravings in afternoon and has a hard time resisting giving into them. No longer wants to use protein bars, feels nauseous when she thinks about them. Meal plan: 7:30am - egg plus yogurt 10:30am - shake - [employer] 1pm - paula box 6pm - 6oz chicken mostly - and vegetables Exercise- likes hiking but inconsistent in general [facility] Medical History (Updated 11/12/23 @ 12:46 by Brenda Khan CNP) Sleep apnea, obstructive Asthma Atrial fibrillation Surgical History (Updated 11/06/23 @ 16:00 by Liana Craft CMA) History of appendectomy No pertinent past surgical history Family History Other Adopted Social History Household Members: Family Housing: Apartment Do you presently have visiting nurse or other home services: No Alcohol intake: current Alcohol intake frequency: holidays/special occasions only Comment: Socially Patient Tobacco Use Status: Former Tobacco user Quit Date: 2005 Years Smoked: 15 +/- service: No Current occupational status: unemployed Telehealth Telehealth Telehealth Platform: Telephone Location of provider rendering services: practice address Location of patient: address on file Patient Identification confirmed using: Name, : Yes Telehealth method: voice only Patient verbally consented to treatment: Yes Patient verbally consented to billing insurance company: Yes Patient informed of any privacy concerns related to visit: Yes Minutes spent on Phone/Video with Pt.: 25 Assessment & Plan Assessment & Plan (1) Morbid obesity: Code(s): E66.01 - Morbid (severe) obesity due to excess calories Category: Medical Plan Discussed the importance of exercise and its necessity in successful buttermaker weight loss. Pt wants to resume hiking and walking. I encouraged her to choose activities she likes and to make an effort to choose some form of physical activity most days. Pt is very interested in meeting with a therapist that specializes in eating disorders, will try to obtain contact info for one. RTC 1 month. Patient is morbidly obese and is not considered stable at this time. I spent a total of 35 minutes reviewing/updating records, examining the patient and counseling the patient on weight management as detailed above.
[2023-12-18 13:13] VITALS: BMI 48.8
== END 2023-12-18 13:52 | disposition home or self-care (01) ==
LOC: HO.HBS 13:14
PROVIDERS: PCP Internal Medicine; Visit Provider Physician Assistant Surgical
DX: E66.01 Morbid (severe) obesity due to excess calories (principal); Z68.42 Body mass index [BMI] 45.0-49.9, adult
CPT/HCPCS: 99214

== ENCOUNTER → 2023-12-18 13:13 | Outpatient (BNVA) | payer OTHER, SELFPAY | PROVIDERS: PCP Internal Medicine; Visit Provider Physician Assistant Surgical | DX: E66.01 Morbid (severe) obesity due to excess calories (principal) ==

== ENCOUNTER 2023-12-24 15:47 | Outpatient (AMB) | payer OTHER, SELFPAY ==
--- NOTE | 2023-12-24 16:16 | MHC.WMTHER ---
Intake Intake Visit Reasons: TV F/U MWL Allergies No Known Allergies [No Known Allergies*] Allergy (Verified 11/06/23 15:57) [facility] Medical History (Updated 11/12/23 @ 12:46 by Brenda Khan CNP) Sleep apnea, obstructive Asthma Atrial fibrillation Surgical History (Updated 11/06/23 @ 16:00 by Liana Craft CMA) History of appendectomy No pertinent past surgical history Family History Other Adopted Social History Household Members: Family Housing: Apartment Do you presently have visiting nurse or other home services: No Alcohol intake: current Alcohol intake frequency: holidays/special occasions only Comment: Socially Patient Tobacco Use Status: Former Tobacco user Quit Date: 2005 Years Smoked: 15 +/- service: No Current occupational status: unemployed Behavioral Health Assessment Weight Management Therapy Therapy Notes Details Patient has not been seen since Jul. Provider referred her due to emotional eating possible binge eating. She reported gaining some weight, has intense cravings and cannot stop herself. Often eats out, also might not be eating enough during the day and then over eats, also cravings occur when she is not hungry. Patient is looking to have weight loss surgery to help improve her health and quality of life. She stated that she struggles to do everyday tasks and things she enjoys. Patient stated that she sees a therapist Brooklynn Fishman [phone] (release on file) and has been in therapy most of her life. Pt stated that she works on interpersonal issues and relationships in therapy. No history of any problems with drugs or alcohol. She has no history of inpatient psychiatric admissions. Presenting Concerns Referral Source provider Reason for referral weight loss surgery evaluation Precipitating Event obesity Living Situation Current Living Situation Own At risk of losing current housing? No Satisfied with current living situation? Yes Comments Pt lives with her and her youngest daughter who is 16. Food/Weight/Diet Expectations of change weight loss and maintenance History/Relationship with food Patient stated that she has always had an addictive relationship with food, if she craves something she has to have it and nothing can stop her. If she is eating something that is good she wont stop eating. Pizza, pasta, occasionally Nepali food, grinders, cream based soups, lasagna, mashed potatoes, eating out twice a week. Sometimes would also drink sodas and juice. Pt stated that she would eat two large plates of food. History/Relationship with weight She reported that she has struggled with her weight most of her life. Currently at her heaviest. History/Relationship with dieting Pt stated that she has only tried to eat heathier no fad diets. She reported loosing 70lbs years ago when she was going through a difficult time and was not eating due to depression. Binge Eating Do you frequently eat large amounts of food in short periods of time, not feeling physically hungry? Yes Do you feel out of control when you eat a large amount of food in a short period of time? Yes Do you eat large amounts of food rapidly and typically alone? Yes Night Eating Do you wake up at least once during the night to eat? No If you wake up in the night, do you find that it is necessary to eat something in order to fall back asleep? No Do you have little or no appetite in the morning and feel very hungry in the evening, often overeating between dinner and when you go to bed? No Social History Family history and relationship Patient was born in [facility] [place] [facility] [place] and raised in the [place] of [place]. She reported being in foster care from age 5 then was adopted at age 13. 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 Social support , grandmother, oldest daughter, best friend Cultural/Ethnic information Legal Involvement and History Current or historical involvement with the legal system? none Education Preferred learning style Auditory, Verbal, Written, Learn by doing and Visual Currently enrolled in educational program? No Interested in further educational program? 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 No Financial Situation Describe current financial situation Occasional struggle Financial assistance? None Service Service? No Mental Health and Addiction Treatment Current/Past substance abuse? No Current/Past addictive behavior concerns? No Medical and Physical Health Summary Physical exam in the last year? No Pain Screening Current pain? No Pain in the last few months? No Medications Is the patient compliant with medications? Yes Does the patient have Aguayo Guardian in place? Not applicable Does the patient use complimentary health approaches? No Trauma/Abuse History History of trauma? Yes Assessment & Plan Assessment & Plan (1) Major depressive disorder, recurrent, moderate: Code(s): F33.1 - Major depressive disorder, recurrent, moderate (2) Morbid obesity: Code(s): E66.01 - Morbid (severe) obesity due to excess calories Plan Patient has depression and some binge eating symptoms. patient reported chronic stress and feeling overwhelmed in her everyday life. She often craves food that she knows she should not be having but stated that she cannot stop herself. After speaking today, does not seem to have an eating disorder, she seems to like food very much and not does not want give up eating all of the things but also wants to loose weight. We discussed different tools to help her and identified some barriers (patient does NOT have a kitchen table, we discussed how important it is to be sitting at a table while eating, not in the living room), discussed her WHY's, needed to be more specific, have set meals time and not missing them, adding to her food items that are going to provide satiety, this is what she will work on in the next two weeks. Telehealth Telehealth Telehealth Platform: Telephone Location of provider rendering services: other Location of patient: address on file Patient Identification confirmed using: Name, : Yes Telehealth method: voice only Patient verbally consented to treatment: Yes Patient verbally consented to billing insurance company: Yes Patient informed of any privacy concerns related to visit: Yes Minutes spent on Phone/Video with Pt.: 50 Coding Level of Care Code Tele Psytx >53 mins (73238) Diagnoses Major depressive disorder, recurrent, moderate F33.1 Morbid obesity E66.01 Time Spent (min) 55
== END 2023-12-24 16:35 | disposition home or self-care (01) ==
LOC: HO.HBST 15:47
PROVIDERS: PCP Internal Medicine; Visit Provider Counselor Mental Health
DX: F33.1 Major depressive disorder, recurrent, moderate (principal); E66.01 Morbid (severe) obesity due to excess calories
CPT/HCPCS: 90837

== ENCOUNTER → 2023-12-24 15:47 | Outpatient (BNVA) | payer OTHER, SELFPAY | PROVIDERS: PCP Internal Medicine; Visit Provider Counselor Mental Health ==

== ENCOUNTER 2024-01-06 15:03 | Outpatient (AMB) | payer OTHER, SELFPAY ==
--- NOTE | 2024-01-06 15:11 | MHC.OFFVIS ---
Vital Signs 01/06/24 15:12 Height 5 ft 8 in Weight 329 lb 12.984 oz BMI 50.1 BP 120/70 Blood Pressure Location Lt brachial Position Sitting Pulse 81 Intake Visit Reasons: 5 mth f/up Intake Note: pt is doing fine,but some back pain. 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 She underwent cardioversion and was started on flecainide and metoprolol along with Eliquis. She is on anticoagulation with Eliquis. She is doing well. She is asking if she can be referred to weight management. 07/29/2023: She returns for follow-up. She has been sick with some sinus infection and is getting Augmentin currently. She has occasional palpitations when she drinks alcohol. Blood pressure is mildly elevated. She is saying she has not been using any decongestants. Currently pulse is regular and she is in sinus rhythm. 01/06/24: She is here for follow-up. She is denying significant symptoms and occasionally gets some palpitations. Overall stable with flecainide. Unfortunately she has hurt her back and is getting a lot of back spasms and is asking whether she can take any medications for that. [facility] Medical History (Updated 01/06/24 @ 15:36 by Fly Noguera MD) Sleep apnea, obstructive Asthma Atrial fibrillation Surgical History History of appendectomy No pertinent past surgical history Family History Other Adopted Social History Household Members: Family Housing: Apartment Do you presently have visiting nurse or other home services: No Alcohol intake: current Alcohol intake frequency: holidays/special occasions only Comment: Socially Patient Tobacco Use Status: Former Tobacco user Quit Date: 2005 Years Smoked: 15 +/- service: No Current occupational status: unemployed Review of Systems Const Denies chills, Denies fatigue, Denies fever(s), Denies frequent falls, Denies weakness, Denies weight gain and Denies weight loss ENT Denies dizziness Card Denies chest pain, Denies leg edema, Denies lightheadedness, Denies palpitations, Denies dyspnea and Denies dyspnea on exertion Resp Denies cough, Denies dyspnea and Denies dyspnea on exertion GI Denies hematochezia Musc Denies abnormal gait, Denies muscle weakness, Denies numbness, Denies radiating pain into limb and Denies tingling Neuro Denies abnormal gait, Denies dizziness, Denies frequent falls, Denies numbness, Denies tingling and Denies weakness Endo Denies fatigue and Denies palpitations Physical Exam Vital Signs: Last Vital Signs Pulse 81 01/06/24 15:12 BP 120/70 01/06/24 15:12 BMI result Body Mass Index 50.1 GENERAL APPEARANCE: in no acute distress, pleasant. NECK/THYROID: no carotid bruit, no jugular venous distention. SKIN: no suspicious lesions, warm and dry. HEART: no murmurs, regular rate and rhythm. LUNGS: clear to auscultation bilaterally. ABDOMEN: soft, nontender. EXTREMITIES: no edema. PERIPHERAL PULSES: equal. NEUROLOGIC: No gross deficits, AAO X 3 Office Procedures EKG Details: Sinus rhythm 81 beats per minute, low voltage, limb leads reversal, QTC 413 milliseconds. [id number]-[id number], Complete Assessment & Plan Assessment & Plan (1) Back pain: Code(s): M54.9 - Dorsalgia, unspecified Category: Medical (2) Atrial fibrillation: Comment: Code(s): I48.91 - Unspecified atrial fibrillation Category: Medical Qualifiers: Atrial fibrillation type: paroxysmal Qualified Code(s): I48.0 - Paroxysmal atrial fibrillation Plan 48-year-old female who is here for follow-up. She has background history of atrial fibrillation. She is on apixaban and flecainide 50 mg twice a day. She is also on metoprolol succinate 25 mg daily. She is complaining of low back pain and spasms. I am giving her a script for cyclobenzaprine 5 mg 3 times a day as needed. She will discuss further with her primary care physician. Thank you for allowing me to participate in the care of your patient. Please feel free to contact me if you have any questions. Medications: New cyclobenzaprine 5 mg PO TID PRN 30 tabs 0RF muscle spasm M54.9 - Dorsalgia, unspecified Coding Level of Care Code Est Pt Level 4 (41720) Diagnoses Back pain M54.9 Atrial fibrillation I48.0 Atrial fibrillation type: paroxysmal CPT Codes EKG - CPT: 20382-[id number], Complete ([id number])
[2024-01-06 15:12] VITALS: BP 120/70; PULSE 81; BMI 50.1
== END 2024-01-06 15:34 | disposition home or self-care (01) ==
PROVIDERS: PCP Internal Medicine; Visit Provider Internal Medicine Cardiovascular Disease
DX: M54.9 Dorsalgia, unspecified (principal); I48.0 Paroxysmal atrial fibrillation
CPT/HCPCS: 93010; 99214

== ENCOUNTER → 2024-01-06 15:03 | Outpatient (BNVA) | payer OTHER, SELFPAY | PROVIDERS: PCP Internal Medicine; Visit Provider Internal Medicine Cardiovascular Disease | DX: M54.9 Dorsalgia, unspecified (principal); I48.0 Paroxysmal atrial fibrillation; R94.31 Abnormal electrocardiogram [ECG] [EKG] | CPT/HCPCS: 93005; 99212 ==

== ENCOUNTER 2024-01-08 15:27 | Outpatient (AMB) | payer OTHER, SELFPAY ==
--- NOTE | 2024-01-21 15:20 | MHC.WMTHER ---
Intake Intake Visit Reasons: (OV) BH F/U Allergies No Known Allergies [No Known Allergies*] Allergy (Verified 11/06/23 15:57) [facility] Medical History (Updated 01/06/24 @ 15:36 by Fly Noguera MD) Sleep apnea, obstructive Asthma Atrial fibrillation Surgical History History of appendectomy No pertinent past surgical history Family History Other Adopted Social History Household Members: Family Housing: Apartment Do you presently have visiting nurse or other home services: No Alcohol intake: current Alcohol intake frequency: holidays/special occasions only Comment: Socially Patient Tobacco Use Status: Former Tobacco user Quit Date: 2005 Years Smoked: 15 +/- service: No Current occupational status: unemployed Behavioral Health Assessment Weight Management Therapy Therapy Notes Details Patient has not been seen since Jul. Provider referred her due to emotional eating possible binge eating. She reported gaining some weight, has intense cravings and cannot stop herself. Often eats out, also might not be eating enough during the day and then over eats, also cravings occur when she is not hungry. Discussed some barriers she faces at work and home. Came up with some solutions after reviewing her goals and why. Patient is looking to have weight loss surgery to help improve her health and quality of life. She stated that she struggles to do everyday tasks and things she enjoys. Patient stated that she sees a therapist Brooklynn Fishman [phone] (release on file) and has been in therapy most of her life. Pt stated that she works on interpersonal issues and relationships in therapy. No history of any problems with drugs or alcohol. She has no history of inpatient psychiatric admissions. Presenting Concerns Referral Source provider Reason for referral weight loss surgery evaluation Precipitating Event obesity Living Situation Current Living Situation Own At risk of losing current housing? No Satisfied with current living situation? Yes Comments Pt lives with her and her youngest daughter who is 16. Food/Weight/Diet Expectations of change weight loss and maintenance History/Relationship with food Patient stated that she has always had an addictive relationship with food, if she craves something she has to have it and nothing can stop her. If she is eating something that is good she wont stop eating. Pizza, pasta, occasionally Mosotho food, grinders, cream based soups, lasagna, mashed potatoes, eating out twice a week. Sometimes would also drink sodas and juice. Pt stated that she would eat two large plates of food. History/Relationship with weight She reported that she has struggled with her weight most of her life. Currently at her heaviest. History/Relationship with dieting Pt stated that she has only tried to eat heathier no fad diets. She reported loosing 70lbs years ago when she was going through a difficult time and was not eating due to depression. Binge Eating Do you frequently eat large amounts of food in short periods of time, not feeling physically hungry? Yes Do you feel out of control when you eat a large amount of food in a short period of time? Yes Do you eat large amounts of food rapidly and typically alone? Yes Night Eating Do you wake up at least once during the night to eat? No If you wake up in the night, do you find that it is necessary to eat something in order to fall back asleep? No Do you have little or no appetite in the morning and feel very hungry in the evening, often overeating between dinner and when you go to bed? No Social History Family history and relationship Patient was born in [facility] and raised in the [place]. She reported being in foster care from age 5 then was adopted at age 13. She has one bio sister and several half siblings but does not talk with them Parental/Familial anime artist obligations teenage daughter Developmental history and status no known issues in this area. Social support , grandmother, oldest daughter, best friend Cultural/Ethnic information Legal Involvement and History Current or historical involvement with the legal system? none Education Preferred learning style Auditory, Verbal, Written, Learn by doing and Visual Currently enrolled in educational program? No Interested in further educational program? 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 No Financial Situation Describe current financial situation Occasional struggle Financial assistance? None Service Service? No Mental Health and Addiction Treatment Current/Past substance abuse? No Current/Past addictive behavior concerns? No Medical and Physical Health Summary Physical exam in the last year? No Pain Screening Current pain? No Pain in the last few months? No Medications Is the patient compliant with medications? Yes Does the patient have Aguayo Guardian in place? Not applicable Does the patient use complimentary health approaches? No Trauma/Abuse History History of trauma? Yes Assessment & Plan Assessment & Plan (1) Major depressive disorder, recurrent, moderate: Code(s): F33.1 - Major depressive disorder, recurrent, moderate (2) Morbid obesity: Code(s): E66.01 - Morbid (severe) obesity due to excess calories Plan Patient has depression and some binge eating symptoms. patient reported chronic stress and feeling overwhelmed in her everyday life. She often craves food that she knows she should not be having but stated that she cannot stop herself. After speaking today, does not seem to have an eating disorder, she seems to like food very much and not does not want give up eating all of the things but also wants to loose weight. We discussed different tools to help her and identified some barriers (patient does NOT have a kitchen table, we discussed how important it is to be sitting at a table while eating, not in the living room), discussed her WHY's, needed to be more specific, have set meals time and not missing them, adding to her food items that are going to provide satiety, this is what she will work on in the next two weeks. Telehealth Telehealth Telehealth Platform: Telephone Location of provider rendering services: other Location of patient: address on file Patient Identification confirmed using: Name, : Yes Telehealth method: voice only Patient verbally consented to treatment: Yes Patient verbally consented to billing insurance company: Yes Patient informed of any privacy concerns related to visit: Yes Minutes spent on Phone/Video with Pt.: 45 Coding Level of Care Code Tele Psytx 45 mins (80251) Diagnoses Major depressive disorder, recurrent, moderate F33.1 Morbid obesity E66.01 Time Spent (min) 45
== END 2024-01-21 15:19 | disposition home or self-care (01) ==
PROVIDERS: PCP Internal Medicine; Visit Provider Counselor Mental Health
DX: F33.1 Major depressive disorder, recurrent, moderate (principal); E66.01 Morbid (severe) obesity due to excess calories
CPT/HCPCS: 90834

== ENCOUNTER → 2024-01-08 15:27 | Outpatient (BNVA) | payer OTHER, SELFPAY | PROVIDERS: PCP Internal Medicine; Visit Provider Counselor Mental Health ==

== ENCOUNTER → 2024-01-21 15:15 | Outpatient (BNVA) | payer OTHER, SELFPAY | PROVIDERS: PCP Internal Medicine; Visit Provider Counselor Mental Health ==

== ENCOUNTER 2024-01-30 14:09 | Outpatient (AMB) | payer OTHER, SELFPAY ==
--- NOTE | 2024-01-30 14:01 | A.OFFVIS_ITS ---
Intake Visit Reasons: (TELEPHONE) f/u [facility] Allergies No Known Allergies [No Known Allergies*] Allergy (Verified 11/06/23 15:57) Medication List - Last Reconciled 01/30/24 by ДМИТРИЙ Murillo apixaban (Eliquis) 5 mg PO BID cyclobenzaprine 5 mg PO TID PRN flecainide 50 mg PO BID levonorgestrel (Mirena) intrauterine metoprolol succinate ER 25 mg PO DAILY HPI Comments Details: Pt presents in followup for [facility]. Starting weight: 344.9 Weight at last visit: 329.8 Total weight change: -23.9lbs (same as last visit) Pt reports feeling sick recently, had back pain that limited her mobility, needed medication; still coughing from illness. Still trying to get adequate protein intake. Pt dealing with cravings, recognizes this is not true hunger. Interested in medications to help with cravings. Meal plan: 7:30am - egg plus yogurt 10:30am - shake - Fairlife 1pm - paula box 6pm - 6oz chicken mostly - and vegetables Exercise- likes hiking but inconsistent in general [facility] Medical History (Updated 01/06/24 @ 15:36 by Fly Noguera MD) Sleep apnea, obstructive Asthma Atrial fibrillation Surgical History History of appendectomy No pertinent past surgical history Family History Other Adopted Social History Household Members: Family Housing: Apartment Do you presently have visiting nurse or other home services: No Alcohol intake: current Alcohol intake frequency: holidays/special occasions only Comment: Socially Patient Tobacco Use Status: Former Tobacco user Years Smoked: 15 +/- service: No Current occupational status: unemployed Telehealth Telehealth Telehealth Platform: Telephone Location of provider rendering services: other Location of patient: address on file Patient Identification confirmed using: Name, : Yes Telehealth method: voice only Patient verbally consented to treatment: Yes Patient verbally consented to billing insurance company: Yes Patient informed of any privacy concerns related to visit: Yes Minutes spent on Phone/Video with Pt.: 20 Assessment & Plan Assessment & Plan (1) Morbid obesity: Code(s): E66.01 - Morbid (severe) obesity due to excess calories Category: Medical Plan We discussed that pt maintained while sick/injured and can consider this a positive thing that she did not resort to old habits and gain. She has made some progress with changing unhealthy behaviors and we discussed seeing this as a positive. Emphasized progress instead of perfection. Discussed choosing her hard - exercise vs sedentary. Pt's primary problem is cravings right now. She wants to pursue GLP1 drugs; I offered to provide documentation/letter of support if needed by insurance company. Again encouraged formal exercise and encouraged pt to choose physical activity that she enjoys. RTC 6-8 weeks. Patient is morbidly obese and is not considered stable at this time. I spent a total of 30 minutes reviewing/updating records, examining the patient and counseling the patient on weight management as detailed above.
== END 2024-01-30 14:25 | disposition home or self-care (01) ==
LOC: HO.HBS 14:09
PROVIDERS: PCP Internal Medicine; Visit Provider Physician Assistant Surgical
DX: E66.01 Morbid (severe) obesity due to excess calories (principal); Z68.43 Body mass index [BMI] 50.0-59.9, adult
CPT/HCPCS: 99214

== ENCOUNTER → 2024-01-30 14:09 | Outpatient (BNVA) | payer OTHER, SELFPAY | PROVIDERS: PCP Internal Medicine; Visit Provider Physician Assistant Surgical ==

== ENCOUNTER 2024-02-03 09:43 | Outpatient (AMB) | payer OTHER, SELFPAY ==
[2024-02-03 10:29] VITALS: BP 120/78; PULSE 80; TEMP 36.3; O2SAT 96; BMI 50.1
--- NOTE | 2024-02-03 10:29 | MHC.OFFWIV ---
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 Cough productive white sputum. endorses intermittent wheezing that resolves with alb MDI. Called out sick from work, requesting work note [facility] Medical History (Updated 02/03/24 @ 10:59 by Joyce Carter APRN, OUTSIDE SALES REPRESENTATIVE INSURANCE) Sleep apnea, obstructive Asthma Atrial fibrillation Surgical History History of appendectomy No pertinent past surgical history Family History Other Adopted Social History Household Members: Family Housing: Apartment Do you presently have visiting nurse or other home services: No Alcohol intake: current Alcohol intake frequency: holidays/special occasions only Comment: Socially Patient Tobacco Use Status: Former Tobacco user Years Smoked: 15 +/- service: No Current occupational status: unemployed Review of Systems Const All systems reviewed & are unremarkable except as noted in HPI and below Physical Exam Vital Signs: Last Vital Signs Temp 97.3 F 02/03/24 10:29 Pulse 80 02/03/24 10:29 BP 120/78 02/03/24 10:29 Pulse Ox 96 02/03/24 10:29 Oxygen Delivery Method Room Air 02/03/24 10:29 BMI result Body Mass Index 50.1 General: awake, alert, oriented. Answers questions appropriately. Fully engaged in examination. Skin: warm, dry, intact HEENT: TMs intact bilaterally, no redness. Posterior pharynx without erythema or exudate. Sclera without icterus or injection. Cardiac: External chest normal in appearance. Respiratory: +cough. LSCTAB. Abdomen: without gross distension. Neurological: Oriented to person, place, time and situation. Thought process intact. Psychiatric: Appropriate mood and affect. Good judgment and insight. Results AMB Rapid Strep AMB Rapid Strep Negative Last Edit by SABA Blanc on 02/03/24 10:54 Assessment & Plan Assessment & Plan (1) URI (upper respiratory infection): Code(s): J06.9 - Acute upper respiratory infection, unspecified Plan Rapid strep negative Z-Arias as directed Prednisone 40 mg p.o. daily x5 days Rest, drink plenty of fluids, tylenol or motrin as needed. Recommend taking OTC nasal decongestants or flonase, discussed with pharmacist heart healthy options for decongestants. Work note provided Follow up with pcp or in clinic for any new or worsening symptoms. Go to ER for shortness of breath, chest pain, palpitations, weakness, dizziness. Orders: Orders AMB Rapid Strep Screen Today Z13.9 - Encounter for screening, unspecified Medications: New azithromycin For 250 mg dose pack: take 500 mg today (day 1), then 250 mg for 4 days (days 2-5) PO 6 tabs 0RF prednisone 40 mg (2 x 20 mg) PO DAILY 5 days 10 tabs 0RF Coding Level of Care Code Est Pt Level 3 (83075) Diagnoses URI (upper respiratory infection) J06.9
== END 2024-02-03 11:16 | disposition home or self-care (01) ==
PROVIDERS: Visit Provider Registered Nurse Emergency
DX: J06.9 Acute upper respiratory infection, unspecified (principal); J02.9 Acute pharyngitis, unspecified
CPT/HCPCS: 87880; 99213

== ENCOUNTER 2024-03-11 15:10 | Outpatient (AMB) | payer OTHER, SELFPAY ==
--- NOTE | 2024-03-11 15:08 | MHC.OFFVISWM ---
Intake Visit Reasons: (TV) F/U [facility] Allergies No Known Allergies [No Known Allergies*] Allergy (Verified 02/03/24 10:38) Medication List - Last Reconciled 03/11/24 by ДМИТРИЙ Murillo apixaban (Eliquis) 5 mg PO BID cyclobenzaprine 5 mg PO TID PRN flecainide 50 mg PO BID furosemide (Lasix) 20 mg PO DAILY levonorgestrel (Mirena) intrauterine metoprolol succinate ER 25 mg PO DAILY HPI Comments Details: Pt presents in followup for [facility]. Pt reports feeling more depressed, also noticed more leg swelling and was prescribed Lasix by court operations clerk. Having difficulty establishing care with a new PCP. Has a community therapist and assistant manager retail. Wants to start a GLP1 agonist but since she has no PCP it has been difficult to find a provider to prescribe this. She also wants to try weight watchers as she has a friend who is doing it. Starting weight: 344.9 Weight at last visit: 329.8 Total weight change: -23.9lbs Meal plan: 7:30am - egg plus yogurt 10:30am - shake - Fairlife 1pm - paula box 6pm - 6oz chicken mostly - and vegetables Exercise- likes hiking but inconsistent in general [facility] Medical History (Updated 02/03/24 @ 10:59 by Joyce Carter APRN, DIGESTION OPERATOR) Sleep apnea, obstructive Asthma Atrial fibrillation Surgical History History of appendectomy No pertinent past surgical history Family History Other Adopted Social History Household Members: Family Housing: Apartment Do you presently have visiting nurse or other home services: No Alcohol intake: current Alcohol intake frequency: holidays/special occasions only Comment: Socially Patient Tobacco Use Status: Former Tobacco user Years Smoked: 15 +/- service: No Current occupational status: unemployed Telehealth Telehealth Telehealth Platform: Telephone Location of provider rendering services: practice address Location of patient: address on file Patient Identification confirmed using: Name, : Yes Telehealth method: voice only Patient verbally consented to treatment: Yes Patient verbally consented to billing insurance company: Yes Patient informed of any privacy concerns related to visit: Yes Minutes spent on Phone/Video with Pt.: 20 Assessment & Plan Assessment & Plan (1) Morbid obesity: Code(s): E66.01 - Morbid (severe) obesity due to excess calories Category: Medical Plan Pt again becomes tearful on the phone discussing her struggles. We discussed appropriate expectations around effects of GLP1 agonists. Pt wants to meet with Tiffanie again and will speak with her community therapist regarding perhaps seeing a specialist that deals with eating behaviors. I spent a total of 30 minutes reviewing/updating records, examining the patient and counseling the patient on weight management as detailed above.
== END 2024-03-11 15:37 | disposition home or self-care (01) ==
LOC: HO.HBS 15:10
PROVIDERS: Visit Provider Physician Assistant Surgical
DX: E66.01 Morbid (severe) obesity due to excess calories (principal); Z68.43 Body mass index [BMI] 50.0-59.9, adult
CPT/HCPCS: 99214

== ENCOUNTER → 2024-03-11 15:10 | Outpatient (BNVA) | payer OTHER, SELFPAY | PROVIDERS: Visit Provider Physician Assistant Surgical ==

== ENCOUNTER 2024-03-24 16:22 | Outpatient (AMB) | payer OTHER, SELFPAY ==
--- NOTE | 2024-03-24 17:30 | MHC.WMTHER ---
Intake Intake Visit Reasons: (TV) BH F/U Allergies No Known Allergies [No Known Allergies*] Allergy (Verified 02/03/24 10:38) [facility] Medical History (Updated 02/03/24 @ 10:59 by Joyce Carter APRN, LASTEX OPERATOR) Sleep apnea, obstructive Asthma Atrial fibrillation Surgical History History of appendectomy No pertinent past surgical history Family History Other Adopted Social History Household Members: Family Housing: Apartment Do you presently have visiting nurse or other home services: No Alcohol intake: current Alcohol intake frequency: holidays/special occasions only Comment: Socially Patient Tobacco Use Status: Former Tobacco user Years Smoked: 15 +/- service: No Current occupational status: unemployed Behavioral Health Assessment Weight Management Therapy Therapy Notes Details Pt stated that she is struggling, feeling helpless, having constant setbacks, feels she will never reach her goals. She discussed several barriers and setbacks as well as negative mindset , Assessment & Plan Assessment & Plan (1) Major depressive disorder, recurrent, moderate: Code(s): F33.1 - Major depressive disorder, recurrent, moderate (2) Morbid obesity: Code(s): E66.01 - Morbid (severe) obesity due to excess calories Plan Patient has depression and some binge eating symptoms. patient reported chronic stress and feeling overwhelmed in her everyday life. She often craves food that she knows she should not be having but stated that she cannot stop herself. After speaking today, does not seem to have an eating disorder, she seems to like food very much and not does not want give up eating all of the things but also wants to loose weight. We discussed different tools to help her, mindset shifts, and micro changes she can make and identified some barriers. This is patients last appointment with this designer/writer and she should continue working with her therapist and economic specialist, Telehealth Telehealth Telehealth Platform: Telephone Location of provider rendering services: other Location of patient: address on file Patient Identification confirmed using: Name, : Yes Telehealth method: voice only Patient verbally consented to treatment: Yes Patient verbally consented to billing insurance company: Yes Patient informed of any privacy concerns related to visit: Yes Minutes spent on Phone/Video with Pt.: 50 Coding Level of Care Code Tele Psytx 45 mins ([id number]) Diagnoses Major depressive disorder, recurrent, moderate F33.1 Morbid obesity E66.01 Time Spent (min) 50
== END 2024-03-24 17:30 | disposition home or self-care (01) ==
LOC: HO.HBST 16:22
PROVIDERS: Visit Provider Counselor Mental Health
DX: F33.1 Major depressive disorder, recurrent, moderate (principal); E66.01 Morbid (severe) obesity due to excess calories

== ENCOUNTER → 2024-03-24 16:22 | Outpatient (BNVA) | payer OTHER, SELFPAY | PROVIDERS: Visit Provider Counselor Mental Health ==

== ENCOUNTER 2024-03-29 06:29 | Emergency (ER) | payer OTHER, SELFPAY ==
--- NOTE | ~2024-03-29 | XR_ITS ---
EXAMINATION: XR KNEE, RIGHT CLINICAL INFORMATION: Injury 2 weeks ago. Pain right knee. COMPARISON: None available. TECHNIQUE: Four views of the right knee. FINDINGS: There is loss of tricompartment joint space with periarticular spurring patellofemoral compartment. No visible acute fracture, dislocation or subluxation seen. The soft tissues are normal. XR/XR knee RT 4V IMPRESSION: Degenerative arthritic changes right knee. No visible acute fracture or dislocation seen.
[2024-03-29 06:42] VITALS: BP 147/84; PULSE 65; RESP 18; TEMP 37; O2SAT 95; BMI 51.7
--- NOTE | 2024-03-29 07:38 | ED_ITS ---
HPI - Extremity Injury (Lower) General Chief Complaint: Extremity Injury, Lower Stated Complaint: right knee pain Time Seen by Provider: 03/29/24 07:20 Source: patient Mode of arrival: ambulatory Limitations: no limitations History of Present Illness ED Provider: Rosita CHERRY HPI Narrative: This is a 48-year-old female history of depression, obesity, KELLY, asthma, atrial fibrillation on flecainide presenting to the emergency department with complaints of right-sided knee pain for the past 2 weeks, she reports this pain started status post her weight loss journey, she reports she has been doing cardio workouts that consist of walking, high knees, kicking all of which seem to be precipitating the pain. Pain is intermittent in nature and occurs with various movements, she is unable to tell me exactly which movements precipitate the pain. She reports pain is better at rest. Knee is not tender to palpation when she presses on it. She reports years ago she thinks she may have had a knee injury however she never got evaluated for it. She reports pain is sharp. Is not currently followed by Orthopedics. Is not sure if she has osteoarthritis. Denies blunt trauma to the knee. Denies numbness, tingling. Denies fevers and chills Related Data Home Medications ?Medication ?Instructions ?Recorded ?Confirmed levonorgestrel 21 mcg/24 hr (up to intrauterine 07/12/21 03/11/24 8 years) 52 mg intrauterine device (Mirena) Previous Rx's ?Medication ?Instructions ?Recorded apixaban 5 mg tablet (Eliquis) 5 mg PO BID #180 tabs 06/19/23 flecainide 50 mg tablet 50 mg PO BID #180 tabs 12/02/23 metoprolol succinate 25 mg 25 mg PO DAILY #90 tabs 12/23/23 tablet,extended release 24 hr cyclobenzaprine 5 mg tablet 5 mg PO TID PRN muscle spasm #30 01/06/24 tabs furosemide 20 mg tablet (Lasix) 20 mg PO DAILY #60 tabs 03/04/24 acetaminophen 325 mg capsule 650 mg (2 x 325 mg) PO Q4H PRN 03/29/24 (Tylenol) pain #30 caps prednisone 20 mg tablet 40 mg (2 x 20 mg) PO DAILY 5 days 03/29/24 #10 tabs Allergies Allergy/AdvReac Type Severity Reaction Status Date / Time No Known Allergies Allergy Verified 03/29/24 06:42 [No Known Allergies*] Review of Systems Review of Systems: Yes all other systems are reviewed and are negative [facility] Past Medical History Attestation statement: The following information was validated with the patient. Source: old records reviewed and nursing notes reviewed Medical History Sleep apnea, obstructive Asthma Atrial fibrillation Surgical History History of appendectomy No pertinent past surgical history Family History Family History Other Adopted Social History Social History Household Members: Family Housing: Apartment Do you presently have visiting nurse or other home services: No Alcohol intake: current Alcohol intake frequency: holidays/special occasions only Comment: Socially Patient Tobacco Use Status: Former Tobacco user Years Smoked: 15 +/- Advance Directives: No Advance Directives Information Provided: No Do you have a plan to hurt others: No Plan service: No Current occupational status: unemployed Physical Exam Vital Signs: Vital Signs: Last Vital Signs Temp 98.6 F 03/29/24 06:42 Pulse 65 03/29/24 06:42 Resp 18 03/29/24 06:42 BP 147/84 H 03/29/24 06:42 Pulse Ox 95 03/29/24 06:42 O2 Del Method Room Air 03/29/24 06:42 BMI result Body Mass Index 51.7 vss Appearance: Alert.? Oriented X3.? No acute distress.? Head: Normocephalic, atraumatic, no step-offs or deformities Eyes: Pupils equal, round and reactive to light.? CVS: Normal heart rate and rhythm.? Pulses normal.? Respiratory: No respiratory distress.? Breath sounds normal.? Abdomen: Soft and nontender.? Skin: Skin warm and dry.? Normal skin color.? Normal skin turgor.? Extremities: 1+ non pitting lower extremity edema b/l.? No calf ttp. 5/5 strength to bilateral upper and lower extremities full rom to b/l kness. No effusions b/l. Normal distal sensation b/l. Normal cap refil b/l. 2+ DP,AT,PT equal and b/l. No foot drop b/l. Back: No midline tenderness, no C-spine tenderness, full range of motion, no CVA tenderness bilaterally Neuro: Oriented X 3.? No motor deficit.? No sensory deficit. CN 2-12 intact Course Reevaluation(s) Reevaluation #1: X-ray of right knee with degenerative arthritic changes no visible fracture dislocation. Patient to follow-up with the orthopedic team will send her home on prednisone burst. Educated patient on diagnosis and treatment plan, answered all question, patient verbalizes understanding. At this time patient will be discharged home, advised to return with new or worsening symptoms. Educated on worrisome signs and symptoms and when to return. At this time I feel comfortable discharge home. Time: 08:24 Medications Administered Discontinued Medications Generic Name Dose Route Start Last Admin Trade Name Freq PRN Reason Stop Dose Admin Acetaminophen 975 mg 03/29/24 07:36 03/29/24 07:52 Acetaminophen 325 Mg Tablet PO 03/29/24 07:37 975 mg ONCE ONE Administration Medical Decision Making Medical Decision Making MDM Narrative: 48-year-old female presents with right knee pain atraumatic however has been using her right knee more than usual. Physical exam 1+ non pitting lower extremity edema b/l.? No calf ttp. 5/5 strength to bilateral upper and lower extremities full rom to b/l kness. No effusions b/l. Normal distal sensation b/l. Normal cap refil b/l. 2+ DP,AT,PT equal and b/l. No foot drop b/l. History and physical exam concerning for possible overuse injury versus osteoarthritis versus sprain or strain. Unlikely fracture, dislocation, neurovascular compromise, acute threat to Cervantes, acute ligament or tendon tear. No signs of large knee effusion or bursitis. No signs of septic joint. Plan imaging Differential Diagnosis Differential Diagnoses: The differential diagnosis associated with the presentation includes History and physical exam concerning for possible overuse injury versus osteoarthritis versus sprain or strain. Unlikely fracture, dislocation, neurovascular compromise, acute threat to C[place], acute ligament or tendon tear. No signs of large knee effusion or bursitis. No signs of septic joint. Admission/Observation Consideration of admission/observation: Escalation of care including admission/observation considered Unlikely Independent Interpretation I performed an independent interpretation of an: Plain X-Ray (XR/XR knee RT 4V IMPRESSION: Degenerative arthritic changes right knee. No visible acute fracture or dislocation seen. ) Radiology Impression Discussion of test interpretation with radiology: I have reviewed the radiologist's reading. Prescription Management I considered prescription management with: Pain Medication Critical Care Time Critical Care Time Critical Care Time: No Discharge Plan Discharge Clinical Impression: Acute pain of right knee Patient Disposition: Home, Self-Care Instructions: Knee Pain (ED), Arthralgia (ED) Additional Instructions: Take your medications as prescribed. If you were prescribed antibiotics today, it is important that you take your medication to their entirety, do not skip any doses, do not finish them early. Follow-up with your primary care provider this week. Return to the emergency department with new or worsening symptoms. Such as fevers, chills, chest pain, shortness of breath, nausea, vomiting, dizziness, headache, vision changes, lethargy In case of emergency call 911 Follow-up with the orthopedic team XR/XR knee RT 4V IMPRESSION: Degenerative arthritic changes right knee. No visible acute fracture or dislocation seen. FINDINGS: There is loss of tricompartment joint space with periarticular spurring patellofemoral compartment. No visible acute fracture, dislocation or subluxation seen. The soft tissues are normal. Prescriptions: New acetaminophen [Tylenol] 325 mg capsule 650 mg PO Q4H PRN (Reason: pain) Qty: 30 0RF prednisone 20 mg tablet 40 mg PO DAILY 5 Days Qty: 10 0RF No Action Eliquis 5 mg tablet 5 mg PO BID Qty: 180 3RF flecainide 50 mg tablet 50 mg PO BID Qty: 180 3RF metoprolol succinate 25 mg tablet extended release 24 hr 25 mg PO DAILY Qty: 90 0RF furosemide [Lasix] 20 mg tablet 20 mg PO DAILY Qty: 60 0RF Mirena 20 mcg/24 hours (7 yrs) 52 mg intrauterine device intrauterine cyclobenzaprine 5 mg tablet 5 mg PO TID PRN (Reason: muscle spasm) Qty: 30 0RF Referrals: Physician,None [Primary Care Provider] - 2 days Stand Alone Forms: Work/School Release Print Language: Portuguese
[2024-03-29] MEDS: Acetaminophen 325 MG TABLET 975 MG PO (07:52)
[2024-03-29 08:38] VITALS: BP 146/76; PULSE 58; RESP 18; TEMP 36.8; O2SAT 97
== END 2024-03-29 08:39 | disposition home or self-care (01) ==
PROVIDERS: Emergency Provider Emergency Medicine
DX: M25.561 Pain in right knee (principal)
CPT/HCPCS: 73564; 99283

== ENCOUNTER 2024-04-06 15:15 | Outpatient (AMB) | payer OTHER, SELFPAY ==
--- NOTE | 2024-04-06 15:23 | MHC.OFFWIV ---
Intake Vital Signs 04/06/24 15:24 Height 5 ft 8 in Weight 348 lb BMI 52.9 BP 122/88 Blood Pressure Location Rt brachial Position Sitting Pulse 70 Pulse Source Pulse Oximeter Pulse Oximetry (%) 98 Oxygen Delivery Method Room Air Intake Visit Reasons: RT Knee pain, lower back Intake Note: Patient here for right knee and lower back pain, she states she was exercising and might have over done it. she was just in ED and was given prednisone which helped some. Patient Tobacco Use Status: Former Tobacco user Allergies No Known Allergies [No Known Allergies*] Allergy (Verified 04/06/24 15:30) Do you need a note to return to daycare/school/sports/work: No HPI HPI Comments History of Present Illness Details Patient is a 48-year-old female here with 2 complaints. Her 1st complaint is her low back, she states she broke her tailbone about 25 years ago and ever since then she has bouts exacerbations. She states she has been working out and she thinks she triggered an exacerbation. She states it is in the center of her low back and it does not radiate, she she says it is a dull aching pain it is not sharp shooting pain, the pain does not go down her legs. She denies any loss of control of her bladder or bowels. Her 2nd complaint is her right knee. She states in 2007 she had twisted her ankle. She states her foot was planted in her ankle twisted but her knee went the opposite way. She focused more on healing or twisted ankle and did not really deal with a knee injury. She states now that she is working out, it is painful on the inside bottom of her kneecap. She states she has tried the following for both of these ailments over the last several years; Lidocaine patches, Tylenol, diclofenac gel, ice and heat. She has tried all of these modes of treatment without much effect. She states she can not take any NSAIDs because she is on Eliquis. She states that medical providers usually tell her it is arthritis because of her weight. She does not feel pain in her left knee. She also states she does not have a primary care doctor at the moment and she has been looking for 1 but it is difficult to find 1 that takes her insurance that she can get in touch with. [facility] Medical History Sleep apnea, obstructive Asthma Atrial fibrillation Surgical History History of appendectomy No pertinent past surgical history Family History Other Adopted Social History Household Members: Family Housing: Apartment Do you presently have visiting nurse or other home services: No Alcohol intake: current Alcohol intake frequency: holidays/special occasions only Comment: Socially Patient Tobacco Use Status: Former Tobacco user Years Smoked: 15 +/- service: No Current occupational status: unemployed Review of Systems Const All systems reviewed & are unremarkable except as noted in HPI and below Physical Exam Vital Signs: Last Vital Signs Pulse 70 04/06/24 15:24 BP 122/88 04/06/24 15:24 Pulse Ox 98 04/06/24 15:24 Oxygen Delivery Method Room Air 04/06/24 15:24 BMI result Body Mass Index 52.9 Const General: cooperative, healthy appearing, comfortable and no acute distress Orientation/consciousness: patient oriented x3 Limitations: no limitations HEENT Head: Yes normal to inspection Resp Effort & Inspection: normal respiratory effort and able to speak in complete sentences Back/Spine/Pelvis Thoracic/Lumbar Spine: thoracic and lumbar spine normal to inspection, No thoraco-lumbar ROM normal, pain with thoraco-lumbar ROM, No paraspinal muscle tenderness, No thoraco-lumbar spasm, No thoracic spinal tenderness and No lumbar spinal tenderness Sacrum: no erythema, no swelling and tenderness Coccyx: no swelling and Coccyx tenderness present Neuro General: patient oriented x3 Assessment & Plan Assessment & Plan (1) Back pain: Code(s): M54.9 - Dorsalgia, unspecified Qualifiers: Back pain location: low back pain Chronicity: chronic Back pain laterality: unspecified Sciatica presence: without sciatica Qualified Code(s): M54.50 - Low back pain, unspecified; G89.29 - Other chronic pain Plan: We will give a short dose of prednisone. Also messaged office clin asst at [facility] to see if we could establish care for this patient with 1 of the new providers and get her in to be evaluated sooner than later. She could benefit from a referral to pain management. (2) Right medial knee pain: Code(s): M25.561 - Pain in right knee Plan: See above, patient will also need referral to Orthopedics and likely an MRI of her right knee eventually. Advised RICE until then an Thanh wrapped her knee Plan see above Medications: New prednisone 40 mg (2 x 20 mg) PO DAILY 10 tabs 0RF Coding Level of Care Code New Pt Level 4 (12381) Diagnoses Chronic low back pain without sciatica, unspecified back pain laterality M54.50; G89.29 Back pain location: low back pain Chronicity: chronic Back pain laterality: unspecified Sciatica presence: without sciatica Right medial knee pain M25.561
[2024-04-06 15:24] VITALS: BP 122/88; PULSE 70; O2SAT 98; BMI 52.9
== END 2024-04-06 16:17 | disposition home or self-care (01) ==
PROVIDERS: Visit Provider Physician Assistant
DX: M54.50 Low back pain, unspecified (principal); G89.29 Other chronic pain; M25.561 Pain in right knee
CPT/HCPCS: 99204

== ENCOUNTER 2024-04-15 15:29 | Outpatient (AMB) | payer OTHER, SELFPAY ==
[2024-04-15 15:38] VITALS: BP 148/84; PULSE 67; O2SAT 99; BMI 50.9
--- NOTE | 2024-04-15 15:38 | A.OFFPC_ITS ---
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 Required: No Allergies No Known Allergies [No Known Allergies*] Allergy (Verified 04/15/24 16:05) Medication List - Last Reconciled 04/15/24 by Caitlin Sousa PA-C acetaminophen (Tylenol) 650 mg (2 x 325 mg) PO Q4H PRN albuterol-budesonide 90-80 mcg/actuation 2 inhalations inhalation DAILY PRN apixaban (Eliquis) 5 mg PO BID cyclobenzaprine 5 mg PO TID PRN flecainide 50 mg PO BID furosemide (Lasix) 20 mg PO DAILY levonorgestrel (Mirena) intrauterine metoprolol succinate ER 25 mg PO DAILY Tobacco use date assessed: 04/15/24 Dental Screening Dental Screen Date: 04/15/24 Did you have a dental visit in the last 12 months?: Yes Did you have a dental problem in the last 6 months where you did not have access to dental care?: No Was dental information given to patient?: Patient has dentist HPI establish care- requesting PE HPI Details 48-year-old female with past medical his tory of atrial fibrillation on anticoagulation, asthma, obstructive sleep apnea, depression coming to the office for the 1st time.?In review of the notes, patient was seen and [facility] 03/29/2024 for right-sided knee pain.?X-ray with degenerative arthritic changes and discharged home with prednisone burst to follow up with Orthopedics.?Patient is also followed by weight management therapy.?Patient follows with [facility] Cardiology last seen 01/06/2024 for paroxysmal AFib status post cardioversion and currently on flecainide with metoprolol and Eliquis. Patient states she has been having chronic right knee pain however she did fall yesterday on the right knee and that was having increased pain. She also mentioned she has low back pain which has been bothering her since her fall as well and concentrated in the lumbar spine. She is concerned that her weight may be contributing to her low back pain and is interested in weight loss solutions. She does have a history of anxiety and sees a counselor by weekly for this and finds it helpful. [facility] Medical History Sleep apnea, obstructive Asthma Atrial fibrillation Surgical History History of appendectomy No pertinent past surgical history Family History Other Adopted Social History Household Members: Family Housing: Apartment Do you presently have visiting nurse or other home services: No Alcohol intake: current Alcohol intake frequency: holidays/special occasions only Comment: Socially Patient Tobacco Use Status: Former Tobacco user Cigarette Packs Per Day: 0.5 Years Smoked: 15 +/- service: No Current occupational status: unemployed Cognitive needs: No Hearing needs: No Vision needs: No Female Reproductive History Menstrual control method: progestin IUCD Total pregnancies: 2 History of abnormal pap smear: No History of abnormal mammogram: No Questionnaire PHQ-9 Over the last 2 weeks, how often have you been bothered by any of the following problems? 1. Little interest or pleasure in doing things: several days 2. Feeling down, depressed, or hopeless: several days 3. Trouble falling or staying asleep, or sleeping too much: several days 4. Feeling tired or having little energy: several days 5. Poor appetite or overeating: several days 6. Feeling bad about yourself - or that you are a failure or have let yourself or your family down: several days 7. Trouble concentrating on things, such as reading the newspaper or watching television: not at all 8. Moving or speaking so slowly that other people could have noticed. Or the opposite - being so fidgety or restless that you have been moving around a lot more than usual: not at all 9. Thoughts that you would be better off or of hurting yourself in some way: not at all Total score: 6 Depression Screening Interpretation: Positive Depression Screening Follow-up: In treatment Depression Screening Done: Yes 71592 - PHQ-9 Billing: Yes Source: Developed by Drs. Ángel Faria, Estrella Jason, Carlos Manuel Henderson and colleagues, with an educational gabby from [employer]. Thrive Questionnaire Date Thrive assessed: 04/20/23 I am a: Patient What is your living situation today?: I have a steady place to live Within the past 12 months, did the food you bought not last and you didn't have the money to get more?: Never true Within the past 12 months, did you worry whether your food would run out before you got money to buy more?: Never true Do you have trouble paying for medicines?: No Do you have trouble getting transportation to medical appointments?: No Do you have trouble paying your heating and electricity bill?: No Do you have trouble taking care of your child, family member or friend?: No Do you have trouble with day-to-day activities such as bathing, preparing meals, shopping, managing finances, etc.?: No Are you currently unemployed and looking for a job?: No Are you interested in more education?: No Please select the resources that you would like help with: None Currently or been in a relationship where the following occur: No concerns reported THRIVE Score: 0 AUDIT C Alcohol Use Questionnaire (AUDIT-C) 1. How often do you have a drink containing alcohol?: Monthly or less 2. How many drinks containing alcohol do you have on a typical day when you are drinking?: 3 or 4 3. How often do you have six or more drinks on one occasion?: Monthly Total Score: 4 ILDA-7 AMB Questionnaire ILDA-7 Date ILDA - 7 assessed: 04/15/24 Feeling nervous, anxious, or on edge: 0 = Not at all Not being able to stop or control worryin = Not at all Worrying too much about different things: 0 = Not at all Trouble relaxin = Not at all Being so restless that it is hard to sit still: 0 = Not at all Becoming easily annoyed or irritable: 0 = Not at all Feeling afraid as if something awful might happen: 0 = Not at all Total ILDA-7 score (0-4 normal; 5-9 mild; 10-14 moderate; 15-21 severe): 0 Source: Developed by Estrella Coulter Kurt Kroenke and colleagues, with an educational gabby from [employer]. ILDA-7 Assessment Billing ILDA-7 Assessment Tool: ILDA-7 Assessment 63876 Review of Systems Const Denies body aches, Denies fatigue, Denies fever(s), Denies frequent falls, Denies headache(s) and Denies weakness Eyes Reports no additional complaints and Denies change in vision ENT Denies dysphagia, Denies dizziness, Denies facial pain, Denies headache(s), Denies nasal congestion and Denies odynophagia Card Denies chest pain, Denies syncope, Denies irregular heart rhythm, Denies leg edema, Denies lightheadedness and Denies dyspnea Resp Denies cough and Denies dyspnea GI Denies constipation, Denies dysphagia, Denies dyspepsia, Denies diarrhea, Denies nausea, Denies odynophagia and Denies vomiting Denies urinary frequency, Denies dysuria, Denies urinary hesitancy and Denies urinary urgency Musc Reports as per HPI Skin/Breast Reports system reviewed and no additional complaints, except as documented Neuro Denies dizziness, Denies syncope, Denies frequent falls, Denies headache(s) and Denies weakness Psych Reports no additional complaints Endo Denies fatigue Physical exam (Primary Care) Vital Signs: Last Vital Signs Pulse 67 04/15/24 15:38 BP 148/84 H 04/15/24 15:38 Pulse Ox 99 04/15/24 15:38 Oxygen Delivery Method Room Air 04/15/24 15:38 BMI result Body Mass Index 50.9 Tobacco/Smoking Status: Tobacco use Status Tobacco use date assessed 04/15/24 04/15/24 15:39 Patient Tobacco Use Status Former Tobacco user 04/15/24 15:39 PHQ-9: PHQ-9 Score PHQ-9: Total score 6 04/15/24 16:14 Depression Screening Interpretation: Positive Depression Screening Follow-up: In treatment Thrive Assessment: Date of Thrive Assessment Date Thrive assessed 04/20/23 04/15/24 15:39 Currently or been in a relationship where the following occur: No concerns reported Const General: cooperative, healthy appearing, comfortable and no acute distress Orientation/consciousness: patient oriented x3 HENMT Head: Yes normocephalic Ears: hearing grossly normal bilaterally General nose exam: Normal external nose present Eyes General: appearance normal, both eyes and all related structures Conjunctivae: conjunctivae normal Neck Neck: Yes full ROM and Yes no lymphadenopathy Resp Effort & Inspection: normal respiratory effort Auscultation: clear to auscultation bilaterally, no crackles, no rales, no rhonchi and no wheezes Cardio Rate: regular rate Rhythm: regular rhythm Back/Spine/Pelvis Other: Tenderness to palpation over lumbar spine and right paraspinal muscles Skin General skin exam: no rashes or lesions noted Neuro General: patient oriented x3 Gait exam (Neuro): Normal gait present Extrem Other: Tenderness to palpation over medial aspect of the right knee. Lower extremity pulses intact General: Yes normal to inspection, Yes full ROM and No edema Psych Affect: normal affect Attitude: cooperative Insight: Good insight present (Psych) Judgement: Good judgement present (Psych) Assessment and Plan Assessment & Plan (1) Right medial knee pain: Code(s): M25.561 - Pain in right knee Plan: Patient having right medial knee pain both reported and on exam. This was previously evaluated and x-rays were taken however she did fall on the knee in the last few days. Repeat x-ray ordered to evaluate for acute fracture. Recommended physical therapy and pain management at this time. (2) Back pain: Code(s): M54.9 - Dorsalgia, unspecified Qualifiers: Back pain laterality: unspecified Back pain location: low back pain Chronicity: chronic Sciatica presence: without sciatica Qualified Code(s): M54.50 - Low back pain, unspecified; G89.29 - Other chronic pain Plan: Patient also mentioned she has low back pain that does not radiate and has been going on for some time now. We will order for lumbar spine x-ray to evaluate and recommend physical therapy and pain management with lidocaine patches or [id number]-bltfyoh analgesics. (3) Morbid obesity: Code(s): E66.01 - Morbid (severe) obesity due to excess calories Plan: Discussed healthy diet and regular exercise. Patient also follows with [facility] weight management program. She is interested in trying Wegovy for weight loss which was prescribed today. Follow up in 1 month. (4) Major depressive disorder, recurrent, moderate: Code(s): F33.1 - Major depressive disorder, recurrent, moderate Plan: Patient follows with a counselor by weekly for this concern. She is not on medical management and is not interested at this time. Plan Ordered for routine blood work and we will follow up in 1 month for annual physical and review of medications. This note was constructed using voice recognition software. While every effort has been made to ensure accuracy and medical communication specialist, still areas may have been included sometimes these areas may affect the content or meeting of the given symptoms. Total time spent caring for the patient today was 40 minutes. This includes time spent before the visit reviewing the chart, time spent during the visit, and time spent after the visit and documentation. Orders: Orders PT Evaluation and Treatment 04/15/24 G89.29 - Other chronic pain, M25.561 - Pain in right knee, M54.50 - Low back pain, unspecified Complete Blood Count Auto Diff 04/15/24 Z00.00 - Encounter for general adult medical examination without abnormal findings Lipid Panel 04/15/24 Z00. - Encounter for general adult medical examination without abnormal findings Vitamin B12 and Folate 04/15/24 Z00.00 - Encounter for general adult medical examination without abnormal findings Vitamin D 25-OH (D2 and D3) 04/15/24 Z00.00 - Encounter for general adult medical examination without abnormal findings XR knee RT 2V 04/15/24 M25.561 - Pain in right knee MM tomosynthesis screening BI 04/15/24 Z12.31 - Encounter for screening mammogram for malignant neoplasm of breast XR lumbar spine 2-3V 04/15/24 G89.29 - Other chronic pain, M54.50 - Low back pain, unspecified Comprehensive Met. Panel 04/15/24 Z00.00 - Encounter for general adult medical examination without abnormal findings Free T4 (Free Thyroxine) 04/15/24 Z00.00 - Encounter for general adult medical examination without abnormal findings TSH reflex Free T4 04/15/24 Z00.00 - Encounter for general adult medical examination without abnormal findings Medications: New semaglutide (weight loss) (Wegovy) administer weeks 1 through 4 of therapy 0.25 mg (0.5 mL) subcut QWEEK 2 mL 0RF Coding Level of Care Code New Pt Level 4 (15511) Diagnoses Right medial knee pain M25.561 Chronic low back pain without sciatica, unspecified back pain laterality M54.50; G89.29 Back pain laterality: unspecified Back pain location: low back pain Chronicity: chronic Sciatica presence: without sciatica Morbid obesity E66.01 Major depressive disorder, recurrent, moderate F33.1 Additional Codes ILDA-7 Assessment Billing - ILDA-7 Assessment Tool: ILDA-7 Assessment 11367 ([id number])
== END 2024-04-15 16:35 | disposition home or self-care (01) ==
DX: M25.561 Pain in right knee (principal); E66.01 Morbid (severe) obesity due to excess calories; F33.1 Major depressive disorder, recurrent, moderate; Z68.43 Body mass index [BMI] 50.0-59.9, adult; M54.50 Low back pain, unspecified; G89.29 Other chronic pain
CPT/HCPCS: 99214

== ENCOUNTER 2024-04-22 07:42 | Outpatient (REF) | payer OTHER, SELFPAY ==
--- NOTE | ~2024-04-22 | XR_ITS ---
EXAMINATION: XR SHOULDER, LEFT CLINICAL INFORMATION: Left shoulder pain. COMPARISON: None available. TECHNIQUE: AP external rotation, Grashey, scapular Y, and axillary views of the left shoulder. FINDINGS: There is mild acromioclavicular osteoarthritis. Glenohumeral joint space is well preserved, although there are tiny glenoid osteophytes. No fracture. Alignment is anatomic. Soft tissues are normal with no abnormal calcifications. XR/XR shoulder LT min 2V IMPRESSION: Mild acromioclavicular and minimal glenohumeral osteoarthritis. No acute findings. Electronically signed by: Hero Garcia MD 04/28/2024 09:32 AM EDT
--- NOTE | ~2024-04-22 | XR_ITS ---
EXAMINATION: XR KNEE, RIGHT CLINICAL INFORMATION: Right knee pain. COMPARISON: None available. TECHNIQUE: AP and lateral views of the right knee. FINDINGS: Moderate patellofemoral compartment osteoarthritis with joint space narrowing and marginal osteophytes. Mild medial and lateral compartment osteoarthritis. No fractures. A 1.4 cm osseous structure in the posterior aspect of the joint may correspond to a loose body or meniscal ossicle. No joint effusion. Mild subcutaneous edema. XR/XR knee RT 2V IMPRESSION: 1. [id number]-[id number] tricompartmental osteoarthritis in the right knee, most notably in the patellofemoral compartment. 2. A 1.4 cm osseous structure in the posterior aspect of the joint may correspond to a loose body or meniscal ossicle. Electronically signed by: Hero Garcia MD 04/28/2024 09:32 AM EDT
--- NOTE | ~2024-04-22 | XR_ITS ---
EXAMINATION: XR LUMBOSACRAL SPINE CLINICAL INFORMATION: Low back pain COMPARISON: None available. TECHNIQUE: Three views of the lumbosacral spine. FINDINGS: Vertebral bodies normal alignment with normal height. Mild degenerative disc changes at L2-L3 and L3-L4 manifested by endplate osteophytes without disc space narrowing. Facets unremarkable. Surrounding soft tissues normal. Incidental note made of an IUD in place XR/XR lumbar spine 2-3V IMPRESSION: 1. Mild spondylosis of lumbar sacral spine. Electronically signed by: Moshe Cohen MD 05/12/2024 07:38 AM EDT
[2024-04-22 07:56] LABS: MANUAL DIFF FLAG NO
[2024-04-22 08:43] LABS: Basophils Percent Auto 0.5 % (0-2); Eosinophils Absolute Auto 0.2 X10*3/uL (0.0-0.4); Eosinophils Percent Auto 2.8 % (0-4); Hematocrit 43.2 % (37.0-47.0); Hemoglobin 14.1 g/dl (12.0-16.0); Imm Gran Abs Auto 0.03 X10*3/uL (0.00-0.03); Imm Gran Pct Auto 0.4 % (0.0-0.4); Lymphocytes Absolute Auto 2.3 X10*3/uL (1.2-4.9); Lymphocytes Percent Auto 30.7 % (20-40); Mean Corpuscular HGB Conc 32.6 g/dl (31.0-35.0); Mean Corpuscular Hemoglobin 28.5 pg (27.0-33.0); Mean Corpuscular Volume 87.3 fL (80.0-98.0); Mean Platelet Volume 9.4 fL (9.4-12.3); Monocytes Absolute Auto 0.8 X10*3/uL (0.1-1.2); Monocytes Percent Auto 10.3 % (2-11); Neutrophils Absolute Auto 4.1 x10*3/uL (2.0-8.3); Neutrophils Percent Auto 55.3 % (45-73); Platelet Count 257 X10*3/uL (160-400); Red Blood Count 4.95 X10*6/uL (4.20-5.50); Red Cell Distribution Width 12.4 % (11.0-16.0); White Blood Count 7.5 X10*3/uL (4.8-10.8)
[2024-04-22 09:17] LABS: Alanine Aminotransferase 34 U/L (0-31); Albumin Level 4.3 g/dL (3.5-5.0); Alkaline Phosphatase 65 U/L (39-117); Anion Gap 11 (12-20); Aspartate Amino Transferase 25 U/L (5-31); Bilirubin Total 0.8 mg/dL (0.0-1.0); Blood Urea Nitrogen 17 mg/dL (9-16); Calcium 9.4 mg/dL (8.4-10.2); Carbon Dioxide 26 mmol/L (22-29); Chloride 107 mmol/L (96-108); Cholesterol 191 mg/dL (<200); Estimated Glomerular Filt Rate > 60; Glucose Random 131 mg/dL (60-115); HDL Cholesterol 36 mg/dL (>40); LDL Cholesterol Calculated 108 mg/dL (<100); Potassium 4.5 mmol/L (3.3-5.1); Sodium 139 mmol/L (135-145); Total Protein 7.2 g/dL (6.5-8.0); Triglycerides 239 mg/dL (<150)
[2024-04-22 09:34] LABS: Free T4 (Free Thyroxine) 0.81 ng/dL (0.71-1.85); TSH reflex Free T4 1.22 uIU/mL (0.32-4.0)
[2024-04-22 09:37] LABS: Folate 8.2 ng/mL (> or = 4.0); Vitamin B12 383 pg/mL (200-900)
[2024-04-28 14:54] LABS: Vitamin D 25-OH, D2 <4 ng/mL; Vitamin D 25-OH, D3 31 ng/mL; Vitamin D 25-OH, Total 31 ng/mL (30-100)
== END 2024-04-22 07:43 | disposition home or self-care (01) ==
LOC: HO.LAB 07:42
DX: Z00.00 Encounter for general adult medical examination without abnormal findings (principal); M25.512 Pain in left shoulder; M54.50 Low back pain, unspecified; M25.561 Pain in right knee; G89.29 Other chronic pain
CPT/HCPCS: 36415; 72100; 73030; 73560; 80053; 80061; 82306; 82607; 82746; 84439; 84443; 85025

== ENCOUNTER 2024-04-29 15:29 | Outpatient (AMB) | payer OTHER, SELFPAY ==
[2024-04-29 15:32] VITALS: BP 138/72; PULSE 75; BMI 51.3
--- NOTE | 2024-04-29 15:32 | A.OFFVIS_ITS ---
Vital Signs 04/29/24 15:32 Height 5 ft 8 in Weight 337 lb 4.916 oz BMI 51.3 BP 138/72 Blood Pressure Location Lt brachial Position Sitting Pulse 75 Pulse Source Pulse Oximeter Intake Visit Reasons: 4m follow up Allergies No Known Allergies [No Known Allergies*] Allergy (Verified 04/15/24 16:05) Medication List - Last Reconciled 04/29/24 by Fly Noguera MD acetaminophen (Tylenol) 650 mg (2 x 325 mg) PO Q4H PRN albuterol-budesonide 90-80 mcg/actuation 2 inhalations inhalation DAILY PRN apixaban (Eliquis) 5 mg PO BID cyclobenzaprine 5 mg PO TID PRN flecainide 50 mg PO BID furosemide (Lasix) 20 mg PO DAILY PRN levonorgestrel (Mirena) intrauterine metoprolol succinate ER 25 mg PO DAILY semaglutide (weight loss) (Wegovy) 0.25 mg (0.5 mL) subcut QWEEK HPI Comments Details: Pleasant 48-year-old female with paroxysmal atrial fibrillation. She underwent cardioversion and was started on flecainide and metoprolol along with Eliquis. She is on anticoagulation with Eliquis. She is doing well. She is asking if she can be referred to weight management. 07/29/2023: She returns for follow-up. She has been sick with some sinus infection and is getting Augmentin currently. She has occasional palpitations when she drinks alcohol. Blood pressure is mildly elevated. She is saying she has not been using any decongestants. Currently pulse is regular and she is in sinus rhythm. 01/06/24: She is here for follow-up. She is denying significant symptoms and occasionally gets some palpitations. Overall stable with flecainide. Unfortunately she has hurt her back and is getting a lot of back spasms and is asking whether she can take any medications for that. 04/29/2024: She is here for follow-up. Occasionally gets palpitations after drinking alcohol. Otherwise clinically stable. She has started Wegovy for weight loss. [facility] Medical History Sleep apnea, obstructive Asthma Atrial fibrillation Surgical History History of appendectomy No pertinent past surgical history Family History Other Adopted Social History Household Members: Family Housing: Apartment Do you presently have visiting nurse or other home services: No Alcohol intake: current Alcohol intake frequency: holidays/special occasions only Comment: Socially Patient Tobacco Use Status: Former Tobacco user Cigarette Packs Per Day: 0.5 Years Smoked: 15 +/- service: No Current occupational status: unemployed Cognitive needs: No Hearing needs: No Vision needs: No Review of Systems Const Denies weakness ENT Denies dizziness Card Denies chest pain, Denies chest pain with activity, Denies syncope, Denies rapid heart rate, Denies pedal edema, Denies edema, Denies leg edema, Denies lightheadedness, Denies palpitations, Denies dyspnea, Denies dyspnea on exertion and Denies orthopnea Resp Denies cough, Denies dyspnea and Denies dyspnea on exertion GI Denies hematochezia and Denies change in stool character Musc Denies abnormal gait, Denies muscle cramps, Denies muscle weakness, Denies numbness, Denies radiating pain into limb and Denies tingling Neuro Denies abnormal gait, Denies dizziness, Denies syncope, Denies numbness, Denies tingling and Denies weakness Endo Denies palpitations Physical Exam Vital Signs: Last Vital Signs Pulse 75 04/29/24 15:32 BP 138/72 04/29/24 15:32 BMI result Body Mass Index 51.3 GENERAL APPEARANCE: in no acute distress, pleasant. NECK/THYROID: no carotid bruit, no jugular venous distention. SKIN: no suspicious lesions, warm and dry. HEART: no murmurs, regular rate and rhythm. LUNGS: clear to auscultation bilaterally. ABDOMEN: soft, nontender. EXTREMITIES: no edema. PERIPHERAL PULSES: equal. NEUROLOGIC: No gross deficits, AAO X 3 Office Procedures EKG Details: Normal sinus rhythm 75 beats per minute, normal ECG, QTC 426 milliseconds. [id number], Complete Assessment & Plan Assessment & Plan (1) Atrial fibrillation: Comment: Code(s): I48.91 - Unspecified atrial fibrillation Category: Medical Qualifiers: Atrial fibrillation type: paroxysmal Qualified Code(s): I48.0 - Paroxysmal atrial fibrillation Plan Pleasant 48 year female with morbid obesity and atrial fibrillation. She has been on flecainide and metoprolol. She is on apixaban for anticoagulation. She started Wegovy for weight loss. Overall clinically stable. Blood pressure is well controlled. Follow-up with us in 6 months. Thank you for allowing me to participate in the care of your patient. Please feel free to contact me if you have any questions. Coding Level of Care Code Est Pt Level 4 (95612) Diagnoses Atrial fibrillation I48.0 Atrial fibrillation type: paroxysmal CPT Codes EKG - CPT: 64155-[id number], Complete ([id number])
== END 2024-04-29 15:59 | disposition home or self-care (01) ==
PROVIDERS: PCP Internal Medicine; Visit Provider Internal Medicine Cardiovascular Disease
DX: I48.0 Paroxysmal atrial fibrillation (principal)
CPT/HCPCS: 93010; 99214

== ENCOUNTER → 2024-04-29 15:29 | Outpatient (BNVA) | payer OTHER, SELFPAY | PROVIDERS: PCP Internal Medicine; Visit Provider Internal Medicine Cardiovascular Disease | DX: I48.0 Paroxysmal atrial fibrillation (principal) | CPT/HCPCS: 93005; 99212 ==

== ENCOUNTER 2024-05-20 15:42 | Outpatient (REF) | payer OTHER, SELFPAY ==
--- NOTE | ~2024-05-20 | MM_ITS ---
EXAMINATION: MM SCREENING DIGITAL BREAST TOMOSYNTHESIS, BILATERAL CLINICAL INFORMATION: Screening. Asymptomatic. COMPARISON: Mammography: Baseline. TECHNIQUE: Digital breast mammography with tomosynthesis is performed in both the craniocaudal and mediolateral oblique views along with computer-aided detection (CAD). FINDINGS: There are scattered areas of fibroglandular density (ACR BI-RADS breast composition Category b). Bilateral normal-appearing upper outer breast intramammary lymph nodes. There are no significant masses, abnormal calcifications, or other abnormalities. MM/MM tomosynthesis screening BI IMPRESSION: No mammographic evidence of malignancy. ASSESSMENT: BI-RADS BI-RADS 2 - Benign Findings RECOMMENDATION: Routine annual mammography screening. 1 year F/U This examination should not preclude the clinical evaluation of a suspicious palpable abnormality. This patient's information was entered into a reminder system with a target due date for their next mammogram. Electronically signed by: Karina Suresh DO 06/01/2024 05:15 PM EDT
== END 2024-05-20 15:43 | disposition home or self-care (01) ==
LOC: HO.MAMMO 15:42
DX: Z12.31 Encounter for screening mammogram for malignant neoplasm of breast (principal)
CPT/HCPCS: 77063; 77067

== ENCOUNTER → 2024-05-20 15:45 | Outpatient (BNV) | payer OTHER, SELFPAY | PROVIDERS: Visit Provider Internal Medicine | DX: Z12.31 Encounter for screening mammogram for malignant neoplasm of breast (principal) | CPT/HCPCS: 77063; 77067 ==

== ENCOUNTER 2024-05-21 15:14 | Outpatient (AMB) | payer OTHER, SELFPAY ==
--- NOTE | 2024-05-21 15:23 | MHC.OFFVIS ---
Vital Signs 05/21/24 15:44 Height 5 ft 8 in Weight 337 lb BMI 51.2 Intake Visit Reasons: HEADRIG SAWYER- RT knee pain, no injury Intake Note: Steph a 49 year old female who presents today as a new patient for an evaluation of right knee pain. Patient reports her pain has been present mid-late February. Denies injury. at home cardio walking video, that may contributed to her pain. anterior aspect of knee. PCP referred to PT. Thanh wrapping helps with swelling. No relief with Tylenol. constant pain that is worse with driving. throbbing pain. Allergies No Known Allergies [No Known Allergies*] Allergy (Verified 04/15/24 16:05) Medication List - Last Reconciled 05/21/24 by Melany Adler PA-C acetaminophen (Tylenol) 650 mg (2 x 325 mg) PO Q4H PRN albuterol-budesonide 90-80 mcg/actuation 2 inhalations inhalation DAILY PRN apixaban (Eliquis) 5 mg PO BID celecoxib (Celebrex) 200 mg PO BID 30 days cyclobenzaprine 5 mg PO TID PRN flecainide 50 mg PO BID furosemide (Lasix) 20 mg PO DAILY PRN levonorgestrel (Mirena) intrauterine metoprolol succinate ER 25 mg PO DAILY semaglutide (weight loss) (Wegovy) 0.5 mg subcut QWEEK HPI HPI HEADRIG SAWYER- RT knee pain, no injury: Details: 49-year-old female who presents to the office today for an evaluation of right knee pain since mid-late February. She has not had any injury on her knee however she reports she was doing a cardio exercises video at home for weight loss when she started developing pain in her knee. She currently states she has improvement however she continues to have a throbbing pain at the anterior aspect of her knee with some days being worse than others. Her pain is aggravated with driving, laying on her sides, bending as well as getting up from prolonged sitting where she needs to take support to get up. She was seen by her PCP who referred her to physical therapy. She finds no relief with Tylenol. She uses thanh wraps for the swelling with benefits. [facility] Medical History Sleep apnea, obstructive Asthma Atrial fibrillation Surgical History History of appendectomy No pertinent past surgical history Family History Other Adopted Social History (Updated 05/21/24 @ 15:27 by NEVA Lambert) Household Members: Family Housing: Apartment Do you presently have visiting nurse or other home services: No Alcohol intake: current Alcohol intake frequency: holidays/special occasions only Comment: Socially Patient Tobacco Use Status: Former Tobacco user Cigarette Packs Per Day: 0.5 Years Smoked: 15 +/- service: No Current occupational status: employed 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 Cognitive needs: No Hearing needs: No Vision needs: No Review of Systems Const All systems reviewed & are unremarkable except as noted in HPI and below Physical Exam Vital Signs: BMI result Body Mass Index 51.2 Const General: cooperative, healthy appearing, comfortable, no acute distress, well developed and alert Orientation/consciousness: patient oriented x3 HEENT Head: Yes normal to inspection, Yes normocephalic and Yes atraumatic Eyes General: appearance normal, both eyes and all related structures Resp Effort & Inspection: normal respiratory effort and able to speak in complete sentences Cardio Rate: regular rate Peripheral pulses: Peripheral pulses 2+ throughout GI Palpation (GI): Soft to palpation Skin Lesions: no lesions Rashes: no rashes Neuro General: patient oriented x3 Extrem Other: Right knee: Skin intact, no erythema or joint effusion. Tenderness along the medial and lateral joint line. Full ROM with crepitus. Positive J Carols?s. No ligamentous laxity. NVI. Results Reviewed Results Reviewed: xrays of the right knee obtained on 04/22/24 are negtaive for acute fractures, she does have mild OA Assessment & Plan Assessment & Plan (1) Osteoarthritis of right knee: Code(s): M17.11 - Unilateral primary osteoarthritis, right knee Category: Medical Plan An MRI of the right knee was ordered to further evaluate the extent of his pain. A prescription of Celebrex was sent to her pharmacy. An order for physical therapy has been placed in the office today. She will see me back once the scan is complete. Orders: Orders PT Evaluation and Treatment Today M17.11 - Unilateral primary osteoarthritis, right knee MR knee RT wo con Today M17.11 - Unilateral primary osteoarthritis, right knee Medications: New celecoxib (Celebrex) 200 mg PO BID 60 caps 3RF 30 days Patient Instructions: Scribed for Melany Adler PA-C, by Williams Hubbard certified ophthalmic medical technician, on 05/21/2024 at 3:15 PM EST.? I, Melany Adler PA-C, have personally reviewed and agree with the information entered by the scribe. Coding Level of Care Code New Pt Level 3 (29952) Complex EM visit Add On G2211 Diagnoses Osteoarthritis of right knee M17.11
[2024-05-21 15:44] VITALS: BMI 51.2
== END 2024-05-21 16:03 | disposition home or self-care (01) ==
PROVIDERS: PCP Internal Medicine; Visit Provider Physician Assistant
DX: M17.11 Unilateral primary osteoarthritis, right knee (principal)
CPT/HCPCS: 99204; G2211

== ENCOUNTER → 2024-05-21 15:14 | Outpatient (BNVA) | payer OTHER, SELFPAY | PROVIDERS: PCP Internal Medicine; Visit Provider Physician Assistant | DX: M17.11 Unilateral primary osteoarthritis, right knee (principal) | CPT/HCPCS: 99202 ==

== ENCOUNTER 2024-05-28 15:35 | Outpatient (AMB) | payer OTHER, SELFPAY ==
[2024-05-28 15:37] VITALS: BP 140/92; PULSE 71; O2SAT 96; BMI 50.8
--- NOTE | 2024-05-28 15:37 | A.OFFPC_ITS ---
Vital Signs 05/28/24 15:37 Height 5 ft 8 in Weight 334 lb BMI 50.8 BP 140/92 H Blood Pressure Location Lt brachial Position Sitting Pulse 71 Pulse Source Pulse Oximeter Pulse Oximetry (%) 96 Oxygen Delivery Method Room Air Intake Visit Reasons: Med Review Biology Specimen Technician Required: No Allergies No Known Allergies [No Known Allergies*] Allergy (Verified 05/28/24 15:38) Medication List - Last Reconciled 05/28/24 by Caitlin Sousa PA-C acetaminophen (Tylenol) 650 mg (2 x 325 mg) PO Q4H PRN albuterol-budesonide 90-80 mcg/actuation 2 inhalations inhalation DAILY PRN apixaban (Eliquis) 5 mg PO BID celecoxib (Celebrex) 200 mg PO BID 30 days cyclobenzaprine 5 mg PO TID PRN flecainide 50 mg PO BID furosemide (Lasix) 20 mg PO DAILY PRN levonorgestrel (Mirena) intrauterine metoprolol succinate ER 25 mg PO DAILY semaglutide (weight loss) (Wegovy) 0.5 mg subcut QWEEK Tobacco use date assessed: 04/15/24 Dental Screening Dental Screen Date: 04/15/24 HPI Med Review HPI Details 49-year-old female with past medical his tory of atrial fibrillation, asthma, morbid obesity, obstructive sleep apnea, depression coming to the office for medication follow up. At last appointment she was started on Wegovy and has increased her dose to 0.5 mg. Today she tells us she was doing well on the Wegovy 0.25 mg and found decrease in her cravings since starting this medication. She has been unable to get the new dose due to back order and stocking issues. She also mentioned she tested positive for COVID on 05/12/2024 began feeling better a few days later and tested negative. Since then she still does have a productive cough with occasional shortness of breath and without fever or other symptoms. She also mentions she has been having several months of intermittent tooth pain and was evaluated by dentist who informed her it would need to be repaired or pulled. She does have pain and tenderness occasionally in the tooth however at this moment is not having any pain. [facility] Medical History Sleep apnea, obstructive Asthma Atrial fibrillation Surgical History History of appendectomy No pertinent past surgical history Family History Other Adopted Social History (Updated 05/21/24 @ 15:27 by NEVA Lambert) Household Members: Family Housing: Apartment Do you presently have visiting nurse or other home services: No Alcohol intake: current Alcohol intake frequency: holidays/special occasions only Comment: Socially Patient Tobacco Use Status: Former Tobacco user Cigarette Packs Per Day: 0.5 Years Smoked: 15 +/- service: No Current occupational status: employed 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 Cognitive needs: No Hearing needs: No Vision needs: No Questionnaire Thrive Questionnaire Date Thrive assessed: 04/15/24 I am a: Patient What is your living situation today?: I have a steady place to live Within the past 12 months, did the food you bought not last and you didn't have the money to get more?: Never true Within the past 12 months, did you worry whether your food would run out before you got money to buy more?: Never true Do you have trouble paying for medicines?: No Do you have trouble getting transportation to medical appointments?: No Do you have trouble paying your heating and electricity bill?: No Do you have trouble taking care of your child, family member or friend?: No Do you have trouble with day-to-day activities such as bathing, preparing meals, shopping, managing finances, etc.?: No Are you currently unemployed and looking for a job?: No Are you interested in more education?: No Please select the resources that you would like help with: None Currently or been in a relationship where the following occur: No concerns reported THRIVE Score: 0 AUDIT C Alcohol Use Questionnaire (AUDIT-C) 1. How often do you have a drink containing alcohol?: Monthly or less 2. How many drinks containing alcohol do you have on a typical day when you are drinking?: 3 or 4 3. How often do you have six or more drinks on one occasion?: Monthly Total Score: 4 ILDA-7 AMB Questionnaire ILDA-7 Date ILDA - 7 assessed: 04/15/24 Source: Developed by Drs. Ángel Faria, Estrella Jason, Carlos Manuel Henderson and colleagues, with an educational gabby from [employer]. Review of Systems Const Denies body aches, Denies chills, Denies fever(s), Denies headache(s) and Denies malaise Eyes Reports no additional complaints ENT Denies bleeding gums, Reports dental pain, Denies dysphagia, Denies otalgia, Denies facial pain, Denies headache(s), Denies hoarseness, Denies odynophagia, Denies sinus pain and Denies sore throat Card Denies chest pain, Denies lightheadedness and Reports dyspnea (Occasional) Resp Denies change in phlegm color, Reports cough, Denies hemoptysis, Denies excessive phlegm production, Denies pain with cough and Reports dyspnea (Occasional) GI Reports no additional complaints, Denies dysphagia and Denies odynophagia Musc Details: Right knee pain Neuro Denies headache(s) Physical exam (Primary Care) Vital Signs: Last Vital Signs Pulse 71 05/28/24 15:37 BP 140/92 H 05/28/24 15:37 Pulse Ox 96 05/28/24 15:37 Oxygen Delivery Method Room Air 05/28/24 15:37 BMI result Body Mass Index 50.8 Tobacco/Smoking Status: Tobacco use Status Tobacco use date assessed 04/15/24 05/28/24 15:38 Patient Tobacco Use Status Former Tobacco user 05/28/24 15:38 Thrive Assessment: Date of Thrive Assessment Date Thrive assessed 04/15/24 05/28/24 15:38 Currently or been in a relationship where the following occur: No concerns reported Const General: cooperative, healthy appearing, comfortable and no acute distress Orientation/consciousness: patient oriented x3 HENMT Head: Yes normocephalic Ears: hearing grossly normal bilaterally General nose exam: Normal external nose present Teeth and gingiva: dentition normal, gingiva normal and normal teeth and gingiva Throat: Yes posterior oropharynx normal Eyes General: appearance normal, both eyes and all related structures Conjunctivae: conjunctivae normal Neck Neck: Yes full ROM and Yes no lymphadenopathy Resp Effort & Inspection: normal respiratory effort Auscultation: clear to auscultation bilaterally, no crackles, no rales, no rhonchi and no wheezes Cardio Rate: regular rate Rhythm: regular rhythm Skin General skin exam: no rashes or lesions noted Neuro General: patient oriented x3 Gait exam (Neuro): Normal gait present Extrem General: Yes normal to inspection, Yes full ROM and No edema Psych Affect: normal affect Attitude: cooperative Insight: Good insight present (Psych) Judgement: Good judgement present (Psych) Coding Level of Care Code Est Pt Level 4 (79808) Diagnoses Cough R05.9 Tooth pain K08.89 Morbid obesity E66.01 Assessment & Plan Assessment & Plan (1) Cough: Code(s): R05.9 - Cough, unspecified Category: Medical Plan: Patient continues to have a productive cough with clear/yellow phlegm and without fevers. Advised to use Mucinex [id number] for productive cough and Delsym [id number] for dry cough. She has declined a chest x-ray at this time however I did place the order if her symptoms worsen advised patient to have chest x-ray done and inform the office. Continue to monitor symptoms and follow up as needed. Reviewed red flag symptoms and when to present for re- evaluation. (2) Tooth pain: Code(s): K08.89 - Other specified disorders of teeth and supporting structures Category: Medical Plan: Patient having intermittent to his pain. On exam does not appear infected and no indication for antibiotics at this time. Advised patient to follow up with dentist for further management. (3) Morbid obesity: Code(s): E66.01 - Morbid (severe) obesity due to excess calories Category: Medical Plan: Patient has been unable to get Wegovy through a pharmacy however she is informed by our pharmacist they should have it within the coming weeks. Patient has no history of diabetes mellitus and is not a candidate for any other GLP 1 injectables. Advised patient to call with the pharmacies and find out if they are able to stock the medication. Plan This note was constructed using voice recognition software. While every effort has been made to ensure accuracy and test borer helper, still areas may have been included sometimes these areas may affect the content or meeting of the given symptoms. Total time spent caring for the patient today was 30 minutes. This includes time spent before the visit reviewing the chart, time spent during the visit, and time spent after the visit and documentation. Orders: Orders XR chest 2V Today R05.9 - Cough, unspecified
== END 2024-05-28 16:46 | disposition home or self-care (01) ==
DX: R05.9 Cough, unspecified (principal); K08.89 Other specified disorders of teeth and supporting structures; E66.813 Obesity, class 3; Z68.43 Body mass index [BMI] 50.0-59.9, adult

== ENCOUNTER → 2024-05-28 15:35 | Outpatient (BNVA) | payer OTHER, SELFPAY | DX: R05.9 Cough, unspecified (principal); K08.89 Other specified disorders of teeth and supporting structures; E66.01 Morbid (severe) obesity due to excess calories | CPT/HCPCS: 99212 ==

== ENCOUNTER 2024-06-17 15:21 | Outpatient (REF) | payer OTHER, SELFPAY ==
--- NOTE | ~2024-06-17 | XR_ITS ---
EXAMINATION: XR chest 2V CLINICAL INFORMATION: R05.9 - Cough, unspecified COMPARISON: Chest radiograph 04/26/2023 TECHNIQUE: 2 views of the chest FINDINGS: Clear lungs. No pneumothorax. No pleural effusion. Normal cardiomediastinal silhouette. XR/XR chest 2V IMPRESSION: Clear lungs. Electronically signed by: Gracie Baldwin MD 07/08/2024 04:18 PM [facility] [place], [place]
== END 2024-06-17 15:22 | disposition home or self-care (01) ==
LOC: HO.XRAY 15:21
PROVIDERS: Visit Provider Physician Assistant
DX: R05.9 Cough, unspecified (principal)
CPT/HCPCS: 71046

== ENCOUNTER 2024-07-04 08:50 | Outpatient (REF) | payer OTHER, SELFPAY ==
--- NOTE | ~2024-07-04 | MR_ITS ---
EXAMINATION: MR KNEE WITHOUT CONTRAST, RIGHT CLINICAL INFORMATION: Unilateral primary osteoarthritis. Patient reports right knee pain and instability. COMPARISON: Right knee in March of 2024. TECHNIQUE: MRI of the knee without contrast was performed using routine sequences on a high-field scanner. FINDINGS: MENISCI: Medial Meniscus: There is heterogeneously increased signal in the posterior horn, likely extending to the femoral and/or tibial articular surfaces. Additional blunting of the body of the meniscus with prominent increased signal, likely extending to the tibial articular surface. Findings indicative of tearing of the posterior horn and body. Possible small meniscal cyst versus synovial recess at the periphery of the posteromedial aspect of the posterior horn. There is also outward extrusion of the body of the medial meniscus indenting on the medial collateral ligament. Anterior horn intact. Lateral Meniscus: Intact. LIGAMENTS: Cruciate: Intact Collateral: Intact. EXTENSOR MECHANISM: Intact ARTICULAR CARTILAGE/BONE: Patellofemoral Compartment: There is nonuniform, up to high-grade, cartilage loss with subchondral cystic change in the lateral facet of the patella. Marginal osteophytes are noted. There is a broad area of high-grade cartilage loss in the lateral trochlea, extending into the sulcus, with scattered subchondral cysts. Marginal osteophytes noted. Overall moderate patellofemoral arthrosis. Medial Compartment: There are marginal osteophytes. Scattered areas of up to full-thickness cartilage loss and/or heterogeneity throughout the weightbearing portion of compartment. There is a 13 mm Overall [id number] arthrosis. Lateral Compartment: There are small marginal osteophytes. Scattered, up to full-thickness, cartilage heterogeneity. There is some cartilage thinning. Overall [id number] arthrosis. JOINT FLUID AND BURSAE: There is a mild joint effusion and mild to moderate-sized slightly complex Ash's cyst. There is a prominent area of ossification posterior to the posterior cruciate ligament and jointline, this could reflect a large osteophyte perhaps detached from the posteromedial aspect of the medial plateau, cannot exclude loose body. This measures approximately 14 mm. MR/MR knee RT wo con IMPRESSION: 1. Tear of the medial meniscus involving the posterior horn and body. 2. Tricompartmental osteoarthritis with degenerative changes, most prominent in the patellofemoral compartment being moderate. 3. Joint effusion and Ash's cyst. 4. Prominent ossification along the posterior aspect of the lateral tibial plateau which could reflect a large osteophyte, perhaps detached or partially detached, loose body. Electronically signed by: Moshe Cohen MD 07/19/2024 07:47 AM [facility]
== END 2024-07-04 08:51 | disposition home or self-care (01) ==
LOC: HO.MRI 08:50
PROVIDERS: Visit Provider Physician Assistant
DX: M17.11 Unilateral primary osteoarthritis, right knee (principal)
CPT/HCPCS: 73721

== ENCOUNTER 2024-07-22 15:28 | Outpatient (AMB) | payer OTHER, SELFPAY ==
[2024-07-22 15:04] VITALS: BP 138/82; PULSE 74; BMI 49.9
--- NOTE | 2024-07-22 15:04 | A.OFFPC_ITS ---
Vital Signs 07/22/24 15:04 Height 5 ft 8 in Weight 328 lb BMI 49.9 BP 138/82 Blood Pressure Location Lt brachial Position Sitting Pulse 74 Pulse Source Pulse Oximeter Oxygen Delivery Method Room Air Intake Visit Reasons: f/u cholesterol Allergies No Known Allergies [No Known Allergies*] Allergy (Verified 07/22/24 15:35) Medication List - Last Reconciled 07/22/24 by Caitlin Sousa PA-C acetaminophen (Tylenol) 650 mg (2 x 325 mg) PO Q4H PRN albuterol-budesonide 90-80 mcg/actuation 2 inhalations inhalation DAILY PRN apixaban (Eliquis) 5 mg PO BID cyclobenzaprine 5 mg PO TID PRN flecainide 50 mg PO BID furosemide (Lasix) 20 mg PO DAILY PRN levonorgestrel (Mirena) intrauterine metoprolol succinate ER 25 mg PO DAILY semaglutide (weight loss) (Wegovy) 1 mg (0.5 mL) subcut QWEEK semaglutide (weight loss) (Wegovy) 0.5 mg (0.5 mL) subcut QWEEK Tobacco use date assessed: 04/15/24 Dental Screening Dental Screen Date: 04/15/24 HPI f/u cholesterol HPI Details 49-year-old female with past medical his tory of atrial fibrillation, asthma, morbid obesity, obstructive sleep apnea, depression coming to the office for medication follow up. Patient states her appetite has slowed down and she has been eating less since being on the semaglutide. She has not yet started the new dose but we will start tomorrow. She also mentioned she continues to cough the cough has been improving. She also mentioned she continues to have right-sided knee pain and is following with Orthopedics for this concern. 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 How often do you have a drink containing alcohol?: Monthly or less 2. How many drinks containing alcohol do you have on a typical day when you are drinking?: 3 or 4 3. How often do you have six or more drinks on one occasion?: Monthly Total Score: 4 ILDA-7 AMB Questionnaire ILDA-7 Date ILDA - 7 assessed: 04/15/24 Source: Developed by Drs. Ángel Faria, Estrella Jason, Carlos Manuel Henderson and colleagues, with an educational gabby from [employer]. Review of Systems Const Denies body aches, Denies chills and Denies fever(s) Eyes Reports no additional complaints ENT Reports no additional complaints Card Denies chest pain, Denies leg edema, Denies lightheadedness and Denies dyspnea Resp Reports cough, Denies hemoptysis, Denies excessive phlegm production, Denies pain with cough and Denies dyspnea GI Denies abdominal pain, Denies diarrhea, Denies nausea and Denies vomiting Reports no additional complaints Musc Details: right knee pain Skin/Breast Reports system reviewed and no additional complaints, except as documented Physical exam (Primary Care) Vital Signs: Oxygen Delivery Method Room Air 07/22/24 15:04 Tobacco/Smoking Status: Tobacco use Status Tobacco use date assessed 04/15/24 07/22/24 15:05 Patient Tobacco Use Status Former Tobacco user 07/22/24 15:05 Thrive Assessment: Date of Thrive Assessment Date Thrive assessed 04/15/24 07/22/24 15:05 Const General: cooperative, healthy appearing, comfortable and no acute distress Orientation/consciousness: patient oriented x3 HENMT Head: Yes normocephalic Ears: hearing grossly normal bilaterally General nose exam: Normal external nose present Eyes General: appearance normal, both eyes and all related structures Conjunctivae: conjunctivae normal Neck Neck: Yes full ROM and Yes no lymphadenopathy Resp Effort & Inspection: normal respiratory effort Auscultation: clear to auscultation bilaterally, no crackles, no rales, no rhonchi and no wheezes Cardio Rate: regular rate Rhythm: regular rhythm Skin General skin exam: no rashes or lesions noted Neuro General: patient oriented x3 Gait exam (Neuro): Normal gait present Extrem General: Yes normal to inspection, Yes full ROM and No edema Psych Affect: normal affect Attitude: cooperative Insight: Good insight present (Psych) Judgement: Good judgement present (Psych) Coding Level of Care Code Est Pt Level 3 (12825) Diagnoses Asthma J45.909 Morbid obesity E66.01 Hypercholesterolemia E78.00 Osteoarthritis of right knee M17.11 Cough R05.9 Assessment & Plan Assessment & Plan (1) Asthma: Code(s): J45.909 - Unspecified asthma, uncomplicated Category: Medical Plan: Asthma currently controlled on present medications. Avoid triggers such as allergies. Continue on inhalers (2) Morbid obesity: Code(s): E66.01 - Morbid (severe) obesity due to excess calories Category: Medical Plan: Healthy diet and regular exercise is encouraged. Continue on semaglutide and metabolic panel was ordered to monitor kidney and liver function. (3) Hypercholesterolemia: Code(s): E78.00 - Pure hypercholesterolemia, unspecified Category: Medical Plan: Avoid foods that are high in cholesterol such as red meat, fried foods, eggs and baked goods. Triglyceride goal of less than 150 and LDL goal of less than 100. Discussed lifestyle and dietary modification. (4) Osteoarthritis of right knee: Code(s): M17.11 - Unilateral primary osteoarthritis, right knee Category: Medical Plan: Continue to follow with Orthopedics. Use Tylenol as needed for pain. (5) Cough: Code(s): R05.9 - Cough, unspecified Category: Medical Plan: Patient continues to have a cough lung sounds are clear on exam and patient is afebrile. Advised to use benzonatate as needed for cough and Mucinex for productive cough. Plan This note was constructed using voice recognition software. While every effort has been made to ensure accuracy and well control instructor, still areas may have been included sometimes these areas may affect the content or meeting of the given symptoms. Total time spent caring for the patient today was 20 minutes. This includes time spent before the visit reviewing the chart, time spent during the visit, and time spent after the visit and documentation. Orders: Orders Comprehensive Met. Panel Today Z00.00 - Encounter for general adult medical examination without abnormal findings Medications: New 2 guaifenesin 200 mg PO QID 14 tabs 0RF benzonatate 100 mg PO BID PRN 20 caps 0RF cough Discontinued semaglutide (weight loss) (Shayy) administer weeks 5 through 8 of therapy Discontinued Reason: Patient Completed Course 0.5 mg (0.5 mL) subcut QWEEK 2 mL 0RF
== END 2024-07-22 16:05 | disposition home or self-care (01) ==
PROVIDERS: PCP Internal Medicine
DX: J45.909 Unspecified asthma, uncomplicated (principal); E66.01 Morbid (severe) obesity due to excess calories; Z68.42 Body mass index [BMI] 45.0-49.9, adult; E78.00 Pure hypercholesterolemia, unspecified; M17.11 Unilateral primary osteoarthritis, right knee; R05.9 Cough, unspecified

== ENCOUNTER → 2024-07-22 15:28 | Outpatient (BNVA) | payer OTHER, SELFPAY | PROVIDERS: PCP Internal Medicine | DX: J45.909 Unspecified asthma, uncomplicated (principal); E66.01 Morbid (severe) obesity due to excess calories; E78.00 Pure hypercholesterolemia, unspecified; M17.11 Unilateral primary osteoarthritis, right knee; R05.9 Cough, unspecified | CPT/HCPCS: 99212 ==

== ENCOUNTER 2024-08-03 14:59 | Outpatient (AMB) | payer OTHER, SELFPAY ==
--- NOTE | 2024-08-03 15:05 | A.OFFVIS_ITS ---
Intake Visit Reasons: OV-MRI Knee RT-review Intake Note: Steph is a 49 year old female who presents today for an MRI review of her right knee. Patient reports her pain has been present mid-late February. Denies injury. IMPRESSION: 1. Tear of the medial meniscus involving the posterior horn and body. 2. Tricompartmental osteoarthritis with degenerative changes, most prominent in the patellofemoral compartment being moderate. 3. Joint effusion and Ash's cyst. 4. Prominent ossification along the posterior aspect of the lateral tibial plateau which could reflect a large osteophyte, perhaps detached or partially detached, loose body. Allergies No Known Allergies [No Known Allergies*] Allergy (Verified 07/22/24 15:35) HPI HPI OV-MRI Knee RT-review: Details: Steph is a 49 year old female who presents today for an MRI review of her right knee. Patient reports her pain has been present mid-late February. Denies injury. She states that she has moderate pain most of the time. Occasionally the pain is sharp and severe. Most of the pain localizes to the medial compartment of the left knee. She is feeling like her weight has something do with her pain. 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 Positive medial J Carlos's. Results Reviewed Results Reviewed: I personally reviewed the MR images. MR/MR knee RT wo con IMPRESSION: 1. Tear of the medial meniscus involving the posterior horn and body. 2. Tricompartmental osteoarthritis with degenerative changes, most prominent in the patellofemoral compartment being moderate. 3. Joint effusion and Ash's cyst. 4. Prominent ossification along the posterior aspect of the lateral tibial plateau which could reflect a large osteophyte, perhaps detached or partially detached, loose body. Assessment & Plan Assessment & Plan (1) Degenerative tear of meniscus of right knee: Code(s): M23.306 - Other meniscus derangements, unspecified meniscus, right knee Category: Medical Plan: This is a 49-year-old woman with a degenerative meniscus tear of the right knee. She has been having symptoms now for a valve 5 months. Her symptoms vary between aching at the end of the day and sharp medial-sided pain. I reviewed her MRI with her and discussed treatment options. I think injections would help but they have not seemed to so far. Surgery may indeed help her but with her concomitant osteoarthritis of the risk is that the recovery is long and the overall improvement is less than for a isolated meniscectomy. She discuss weight loss as well. I think that would be helpful but not curative as she does have a anatomical problem in the knee. She will think about our discussion let me know if she would like to proceed forward with surgery versus continued co nservative management. Coding Level of Care Code Est Pt Level 4 (07891) Diagnoses Degenerative tear of meniscus of right knee M23.306
--- OUTSIDE RECORDS SUMMARY | 2024-08-05 16:16 | XMS_ITS | Data Portability ---
Author Organization [place] - [facility], Allergy Address [address] [place] [phone] Assessment Encounter Date Assessment Date Assessment LastModified by Organization Details LastModified Time 04/17/2024 04/17/2024 Patient was referred through the weight loss clinic to discuss snoring and sleep apnea. I was able to locate her prior sleep study with an AHI of 2.7. I did not see anything abnormal on her physical exam to recommend intervention, her tonsils are small, her nasal passages are clear. She has recently begun on a weight loss medication. She may follow-up as needed [email or web address] Not available 04/17/2024 15:21:51 Plan of Treatment Reminders Order Date Submit Date Provider Last Modified By Organization Details Last Modified Time Details Appointments None record ed. Lab None record ed. Referral None record ed. Procedures None record ed. Surgeries None record ed. Imaging None record ed. Medication Orders None record ed. Patient TargetsNo targets recorded. Patient InstructionsNo instructions recorded. Reason for Referral None Reported. Results Created Date Observation Date Name Description Value Unit Range Abnormal Flag Note LastModifiedBy Organization Detail LastModifiedTime 04/15/2010/31/2023 sleep study , diagn ostic (PROC ) No observ ation record ed. [email or web address] Not Available 2023 15:15:49 Result Notes None recorded. Problems Name Problem SNOMED Code Status Onset Date Resolution Date Notes Provider Name and Address Organization Details Recorded Time Impacted cerumen in right ear 17188535448 29813 Active 2016 Impacted cerumen, right ear; Note: Date Diagnosed : 10/31/2016 4:26 PM (H61.21) Not Available [facility] 4 02:25:57 Acute tonsillit is 30176771 Active 2016 Acute tonsillit is, unspecifi ed; Note: Date Diagnosed : 10/31/2016 4:28 PM (J03.90) Not Available [facility] 4 02:26:11 Otalgia of right ear 1079846486 Active 2016 Otalgia, right ear; Note: Date Diagnosed : 10/31/2016 4:26 PM (H92.01) Not Available [facility] 4 02:25:51 Snoring 27898762 Active 2023 MINNIE CHRIS MD [address] [place] [address], [place], [phone] , [facility] - [facility] 4 15:20:59 Problem Notes None recorded. Procedures Surgical History Date Name Laterality Status Provider Name and Address Organization Details Recorded Time Appendectomy completed Mandi Sullivan - [facility] 04/17/2024 14:56:12 Imaging Results Imaging Date Name Status LastModified by [facility] Details LastModified Time 10/31/2023 sleep study, diagnostic (PROC) completed [email or web address] Information not available 04/17/2024 15:15:49 Procedure Notes None recorded. Medical Equipment None Reported. Allergies Allergen ID Allergen Name Allergen Category Reaction Reaction Severity Criticality Documentation Date Start Date Code Code System Note Provider Name and Address Organization Details Recorded Time 88432 clindamyc in hydrochlo ride medicatio n other Not available Not available 01/07/2024 51521 RxNorm React ion: unkno wn, unspe cifie d;; Not Available [facility] 4 00:55:38 Medications Name Sig Start Date Stop Date Status Note LastModified by Organization Details LastModified Time acetamino phen 325 mg tablet TAKE 2 TABLETS BY MOUTH EVERY 4 HOURS NEEDED FOR PAIN active Not Available Not Available No t Available clindamyc in HCl 300 mg capsule 11/01 completed Medicati on ID: [id number] D uration Value: 14 Brand Name: clindamy celena HCl Send Method: E-Prescr ibed Sub s Allowed: subs OK Medic ationGen ericName : clindamy celena HCl Not Available Not Available Not Available oxybutyni n chloride ER 10 mg tablet,ex tended release 24 hr 2016 active Medicati on ID: [id number] D uration Value: 30 Brand Name: oxybutyn in chloride Send Method: E-Prescr ibed Sub s Allowed: subs OK Speci al Instruct ion: take 2 tablets by mouth once daily as directed (TAKE THE TWO TABLETS T OGETHER) Medicat ionGener icName: oxybutyn in chloride Not Available Not Available Not Available azithromy celena 250 mg tablet active Not Available Not Available No t Available prednison e 20 mg tablet TAKE 2 TABLETS BY MOUTH DAILY active Not Available Not Available No t Available aspirin 81 mg tablet,de layed release 2016 active Medicati on ID: [id number] B rand Name: aspirin Send Method: E-Prescr ibed Sub s Allowed: subs OK Medic ationGen ericName : aspirin Not Available Not Available Not Available tramadol 50 mg tablet 2016 active Medicati on ID: D uration Value: 30 Brand Name: tramadol Send Method: E-Prescr ibed Sub s Allowed: subs OK Speci al Instruct ion: take 2 tablets by mouth three times a day if needed M edicatio nGeneric Name: tramadol Not Available Not Available Not Available benzonata te 100 mg capsule TAKE 1 CAPSULE BY MOUTH THREE TIMES DAILY FOR 7 DAYS active Not Available Not Available No t Available flecainid e 50 mg tablet TAKE 1 TABLET BY MOUTH TWICE DAILY active Not Available Not Available No t Available ibuprofen 200 mg tablet 3 tablet by mouth 2016 active Medicati on ID: [id number] D uration Value: 7 Brand Name: ibuprofe n Send Method: E-Prescr ibed Sub s Allowed: subs OK Medic ationGen ericName : ibuprofe n Not Available Not Available Not Available hydrochlo rothiazid e 25 mg tablet 2016 active Medicati on ID: [id number] D uration Value: 30 Brand Name: hydrochl orothiaz jose Send Method: E-Prescr ibed Sub s Allowed: subs OK Speci al Instruct ion: take 1 tablet by mouth once daily Me dication GenericN esther: hydrochl orothiaz jose Not Available Not Available Not Available furosemid e 20 mg tablet TAKE 1 TABLET BY MOUTH DAILY active Not Available Not Available No t Available metoprolo l succinate ER 25 mg tablet,ex tended release 24 hr TAKE 1 TABLET BY MOUTH DAILY active Not Available Not Available No t Available albuterol sulfate HFA 90 mcg/actua tion aerosol inhaler INHALE 2 PUFFS BY MOUTH EVERY 4 HOURS NEEDED active Not Available Not Available No t Available amoxicill in 875 mg-potass ium clavulana te 125 mg tablet TAKE 1 TABLET BY MOUTH TWICE DAILY active Not Available Not Available No t Available cyclobenz aprine 5 mg tablet TAKE 1 TABLET BY MOUTH THREE TIMES DAILY NEEDED FOR MUSCLE SPASM active Not Available Not Available No t Available Eliquis 5 mg tablet TAKE 1 TABLET BY MOUTH TWICE DAILY active Not Available Not Available No t Available tramadol 100 mg tablet TAKE 1 TABLET BY MOUTH EVERY 4-6 HOURS NEEDED FOR PAIN ON A SCALE OF 7-10 DO NOT EXCEED 4 DOSES IN 24 HOURS active Not Available Not Available No t Available Vitals Date Recorded Body height Body mass index (BMI) Body weight Provider Name and Address Organization Details Last Updated DateTime 04/17/2024 172.72 cm 50.9 kg/m2 221918.44 g Mandi Castro MA - [facility] 04/17/2024 15:03:16 Social History Question Answer Notes LastModified by Organizat ion Details LastModified Time Tobacco Smoking Status Former Smoker Mandi deluna MA - [facility] 04/17/2024 14:57:07 What Is Your Level Of Alcohol Consumption? Occasional [email or web address] Information not available 04/17/2024 Sex: Unknown Functional Status None recorded. Mental Status None recorded. Family History Nothing Reported. Medical History Condition Response Emphysema Y Heart Problems Y Anxiety Y Depression Y Asthma Y Gynecological HistoryNo gynecological history recorded. Obstetrics History GPAL:G 0 P 0 0 0 0 Past Encounters Encounter ID Performer Location Encounter Start Date Encounter Closed Date Diagnosis/Indication Diagnosis SNOMED-CT Code Diagnosis ICD10 Code [id number] MINNIE CHRIS MD [facility] [address] [phone] 04/17/2024 14:13:00 04/17/2024 15:22:11 Snoring 67615308 R06.83 Health Concerns Section Related Observation LastModified by Organization Detai ls LastModified Time None Recorded Concern Status LastModified by Organization Details LastModified Time None Recorded Advance Directives Directive None Recorded Payers Encounter Date Sequence Insurance Name Policy Number Policy Pollard Covered Member ID Pollard Member ID Guarantor Name 04/17/2024 1 [facility] PLAN - MULTIPLAN (PPO) [id number] Steph Neal [id number] 1 Steph Neal Notes Date Note Type Note Provider Name and Address Organization Details Recorded Time 04/17/2024 text/html weight loss program /1/[address] [place] 46AHI 2.7 just started wegovy +snoringno hx of tonsil infections MINNIE CHRIS MD [address] [place] [address], [phone], [facility] - [facility] 04/17/2024 15:22:03 OBGyn Episode No OBEpisode recorded.
--- OUTSIDE RECORDS SUMMARY | 2024-08-05 16:17 | XMS_ITS | Data Portability ---
Author Organization [facility], Main Office Address [address] [facility] [address] [place] [address] Care Team Providers Care Paralegal Instructor Name Role Phone MINNIE CHRIS Improvement Specialist [facility] [employer] HODA RAHMAN Orthopedic Surgeon [phone] [facility] Urologist JESS DELA CRUZ Automobile Racer MOLLY LAM Primary Care Provider Assessment Encounter Date Assessment Date Assessment LastModified by Organization Details LastModified Time 01/08/2023 01/08/2023 This service was provided using telemedicine. Patient consented to video & audio visit Patient was located in the [facility]. Provider was located in the office. No other persons participated in the telemedicine visit except for the patient unless otherwise indicated here. {{}} Total time of visit was 12 minutes. [email or web address] Not available 01/08/2023 16:17:31 07/24/2023 07/24/2023 Discussed with patient the signs/symptoms warranted for a return to office visit and/or an ER visit. Patient understood and agreed with the plan. Not available 07/24/2023 15:09:24 Plan of Treatment Reminders Order Date Submit Date Provider Last Modified By Organization Details Last Modified Time Details Appointments None record ed. Lab urinal ysis, dipsti ck 2022 023 [email or web address] In-Office Order, Internal Use Only DO Not Attach Compendium DO Not Attach Compendium, Do Not Delete/merge, [id number] 3 14:39:10 rapid SARS CoV 2 Ag, QL IA, respir atory specim en 2022 023 In-Office Order, Internal Use Only DO Not Attach Compendium DO Not Attach Compendium, Do Not Delete/merge, [id number] 3 15:18:01 rapid flu (A+B) 2022 023 CARMELO In-Office Order, Internal Use Only DO Not Attach Compendium DO Not Attach Compendium, Do Not Delete/merge, [id number] 3 15:28:10 rsv (respi ratory syncyt ial virus) , rapid, soniya lagos al 2022 023 CARMELO In-Office Order, Internal Use Only DO Not Attach Compendium DO Not Attach Compendium, Do Not Delete/merge, [id number] 3 15:44:39 Referral dermat ologis t referr al 2022 023 [facility], [address] [facility], [address], [place], [address], 4 10:36:34 Procedures None record ed. Surgeries None record ed. Imaging None record ed. Medication Orders ciprof loxaci n 250 mg tablet 2022 023 [facility] #[id number], [address] [place] [address], [id number], 3 15:55:22 Augmen tin 875 mg-125 mg tablet 2022 023 [facility] #[id number], [address] [place] [address], [id number], 3 15:18:13 benzon atate 100 mg capsul e 2022 023 [facility] #[id number], [address] [place], [place], [id number], 15:18:16 albute rol sulfat e HFA 90 mcg/ac tuatio n aeroso l inhale r 2022 023 CAR[id number], [address] [place], [place], [id number], 15:18:13 Patient TargetsNo targets recorded. Patient Instructions Encounter Date Encounter Id Patient Instructions Last Modified By Organization Details Last Modified Time 01/08/2023 [id number] Follow up if no improvement or if symptoms worsen. [email or web address] Not available 01/08/2023 16:19:02 04/17/2023 [id number] tennis elbow: care instructions pmadden Not available 04/17/2023 16:48:46 tennis elbow: exercises pmadden Not available 04/17/2023 16:48:47 Follow up if no improvement or if symptoms worsen. pmadden Not available 04/17/2023 16:53:08 04/26/2023 [id number] 05/07/23- message left at home number to return my call, offer a hospital follow up as well as Pt is also due for a physical. Lena [email or web address] Not available 05/07/2023 08:58:32 07/24/2023 [id number] Acute Sinusitis: Care Instructions Not available 07/24/2023 15:18:07 cough: care instructions Not available 07/24/2023 15:18:07 Reason for Referral Instructional Designer Referral for S kin lesion Referring Physician: Cabrera Mondragon, Internal Medicine, Encounter Date: 04/17/2023 Results Created Date Observation Date Name Description Value Unit Range Abnormal Flag Note LastModifiedBy Organization Detail LastModifiedTime 04/19/2004/19/2023 urina lysis , dipst ick Leukocytes Negati ve Not Available In-Office Order Internal Use Only DO Not Attach Compendium DO Not Attach Compendium, Do Not Delete/merge, [id number] 04/19/2023 13:29:11 04/19/2004/19/2023 urina lysis , dipst ick Nitritie negati ve Not Available In-Office Order Internal Use Only DO Not Attach Compendium DO Not Attach Compendium, Do Not Delete/merge, 04/19/2023 13:29:11 04/19/20 23 04/19/2023 urina lysis , dipst ick Urobilinogen .2 Not Available In-Of fice Order Internal Use Only DO Not Attach Compendium DO Not Attach Compendium, Do Not Delete/merge, 04/19/2023 13:29:11 04/19/20 23 04/19/2023 urina lysis , dipst ick Protein Negati ve Not Available In-Office Order Internal Use Only DO Not Attach Compendium DO Not Attach Compendium, Do Not Delete/merge, 04/19/2023 13:29:11 04/19/20 23 04/19/2023 urina lysis , dipst ick pH 6.0 Not Available In-Office Order Internal Use Only DO Not Attach Compendium DO Not Attach Compendium, Do Not Delete/merge, 04/19/2023 13:29:11 04/19/20 23 04/19/2023 urina lysis , dipst ick Blood Hemoly zed: Trace Not Available In-Office Order Internal Use Only DO Not Attach Compendium DO Not Attach Compendium, Do Not Delete/merge, 04/19/2023 13:29:11 04/19/20 23 04/19/2023 urina lysis , dipst ick Specific [place] 1.005 Not Available In-Off ice Order Internal Use Only DO Not Attach Compendium DO Not Attach Compendium, Do Not Delete/merge, 04/19/2023 13:29:11 04/19/20 23 04/19/2023 urina lysis , dipst ick Ketone Trace Not Available In-Office Order Internal Use Only DO Not Attach Compendium DO Not Attach Compendium, Do Not Delete/merge, 04/19/2023 13:29:11 04/19/20 23 04/19/2023 urina lysis , dipst ick Bilirubin Negati ve Not Available In-Office Order Internal Use Only DO Not Attach Compendium DO Not Attach Compendium, Do Not Delete/merge, 04/19/2023 13:29:11 04/19/20 23 04/19/2023 urina lysis , dipst ick Glucose Negati ve Not Available In-Office Order Internal Use Only DO Not Attach Compendium DO Not Attach Compendium, Do Not Delete/merge, [id number] 04/19/2023 13:29:11 04/19/20 23 04/19/2023 urina lysis , dipst ick Appearance Clear Not Available In-Offi ce Order Internal Use Only DO Not Attach Compendium DO Not Attach Compendium, Do Not Delete/merge, [id number] 04/19/2023 13:29:11 04/19/20 23 04/19/2023 urina lysis , dipst ick Color Yellow Not Available In-Office Order Internal Use Only DO Not Attach Compendium DO Not Attach Compendium, Do Not Delete/merge, [id number] 04/19/2023 13:29:11 07/24/20 23 07/24/2023 rsv (resp irato ry syncy tial virus ), rapid , nasop haryn geal RSV, RAPID negati ve Not Available In-Office Order Internal Use Only DO Not Attach Compendium DO Not Attach Compendium, Do Not Delete/merge, [id number] 07/24/2023 15:19:04 07/24/20 23 07/24/2023 rapid flu (A+B) Flu A negati ve Not Available In-Office Order Internal Use Only DO Not Attach Compendium DO Not Attach Compendium, Do Not Delete/merge, [id number] 07/24/2023 14:52:40 07/24/20 23 07/24/2023 rapid flu (A+B) Flu B negati ve Not Available In-Office Order Internal Use Only DO Not Attach Compendium DO Not Attach Compendium, Do Not Delete/merge, [id number] 07/24/2023 14:52:40 07/24/20 23 07/24/2023 rapid SARS CoV 2 Ag, QL IA, respi rator y speci men RAPID SARS COV 2 negati ve Not Available In-Office Order Internal Use Only DO Not Attach Compendium DO Not Attach Compendium, Do Not Delete/merge, [id number] 07/24/2023 14:52:37 05/21/2005/21/2023 upper endos copy proce dure (EGD) (PROC ) No observ ation record ed. [email or web address] [facility] (Medical Records) [address] [place], [address], 05/21/2023 11:11:15 05/22/20 23 05/21/2023 US, abdom en, compl ete No observ ation record ed. [email or web address] [facility] (Medical Records) [address] [place], [address], 05/22/2023 12:50:47 Result Notes None recorded. Problems Name Problem SNOMED Code Status Onset Date Resolution Date Notes Provider Name and Address Organization Details Recorded Time Inflamma tory disorder of extremit y 035611310 Completed 201103/09/2014 IMPRESSI ON: REVIEWED XRAY WITH ALPHONSE JOHNSON EXAM CONSISTE NT WITH ACHILLES TENDONIT IS, AND SWELLING NO MASS FELT; RECORDED 03/25/20 12 9:59AM BY ELIZABETH DRAKE MA, ANNOTATI ON/SAMINA Mondragon PA-C [address], [place], [address], [facility] [place] 6 12:28:32 Acute bronchit is [id number] Completed 201103/09/2014 RECORDED 03/25/20 12 9:59AM BY ELIZABETH DRAKE MA, ANNOTATI ON/ADDEN BAKARI Mondragon PA-C [address], [place], [address], [facility] [place] 6 12:28:31 Acute pharyngi tis [id number] Completed 201203/09/2014 IMPRESSI ON: + RAPID STREP, POSSIBLE RIGHT EARLY PERITONS ILLAR ABSCESS, TX WITH ABX/FLUI DS/NSAID S, IF WORSENIN G PAIN OR DIFFICUL TY SWALLOWI NG CALL OFFICE FOR ENT APPT.; RECORDED 12/16/19 13 10:04AM BY BARBARA ARTIS ON/ADDEN LUIS FERNANDO Jimenez, [facility] 6 15:19:04 Tobacco user [id number] Completed 201305/29/2014 RECORDED 01/17/20 14 10:42AM BY OMAYRA Saleem MD, OFFICE VISIT Bela Mondragon PA-C [address], [place], [address], [facility] 6 12:28:31 Patient status finding [id number] Completed 06/29/2016 LUIS FERNANDO Adams, [facility] 6 15:18:43 Backache [id number] Completed 06/29/2016 LUIS FERNANDO Adams, [facility] 6 15:18:46 Urinary incontin ence 986200611 Active Bela Mondragon PA-C [address] [facility] [address], [place], [address], [facility] 6 12:28:32 Cough [id number] Completed 201103/09/2014 RECORDED 03/25/20 12 9:58AM BY ELIZABETH DRAKE MA, ANNOTATI ON/ADDEN DUM LUIS FERNANDO Adams, [facility] 6 15:19:12 Degenera tion of interver tebral disc 31658972 Completed 201103/09/2014 RECORDED 03/25/20 12 9:59AM BY ELIZABETH DRAKE MA, ANNOTATI ON/ADDEN DUM Bela CHOE-C [address] [facility] [address], [place], [address], [facility] 6 12:28:32 Dizzines s and giddines s 164772241 Completed 201203/09/2014 IMPRESSI ON: NORMAL EXAM; RECORDED 09/01/19 13 1:16PM BY CHERIE HERRERA MA, ANNOTATI ON/ADDEN DUM Bela CHOE-C [address], [facility] [place], [address], [facility] 6 12:28:32 Edema [id number] Completed 201103/09/2014 IMPRESSI ON: BILATERA L, LUNGS CLEAR, C/W DEPENDEN T EDEMA, HAS TAKEN HCTZ IN THE PAST WITH [facility] ENT, ALSO REVIEWED DIET/LEG ELEVATIO N/WEIGHT LOSS/COM PRESSION STOCKING S; RECORDED 06/12/20 12 9:04AM BY BARBARA ARTIS ON/ADDEN DUM Brenda green MA null, [facility] 6 15:18:56 Elevated blood-pr essure reading without diagnosi s of hyperten yue [id number] Active Bela Mondragon PA-C [address] [facility] [address], [place], [address], [facility] 6 12:28:32 Adult health examinat ion Completed 201103/09/2014 IMPRESSI ON: PAP IS UTD, PT TO START EXERCISI NG; RECORDED 07/08/20 12 1:24PM BY BARBARA GUIDRY ON/ADDEN DUM Bela Mondragon PA-C [address] [facility] [address], [place], [address], [facility] 6 12:28:32 Pure hypercho lesterol emia 361699204 Completed 01/25/2017 Omayra garrett null, [facility] 7 14:59:23 Knee pain Completed 201203/09/2014 IMPRESSI ON: PT IN A MOMIN TO LEAVE SO DID NOT EXAMINE KNEES. WILL START WITH X-RAY SINCE MAY HAVE DJD. F/U WITH PCP FOR FURTHER ASSESSME NT. 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 9 15:55:45 Lipoma of skin and subcutan eous tissue (excludi ng face) [id number] Completed 201103/09/2014 IMPRESSI ON: BACK; RECORDED 06/12/20 12 9:04AM BY BARBARA ARTIS ON/ADDEN DUM Bela Mondragon PA-C [address], [place], [address], [facility] 6 12:28:31 Low back pain 290179643 Completed 201203/09/2014 RECORDED 09/05/19 13 10:23AM BY CHERIE HERRERA MA, BARBARA ON/ADDEN DUM Bela [employer]-C [address] [facility] [address], [place], [address], [facility] 6 12:28:32 Lumbar sprain [id number] Completed 200903/09/2014 RECORDED 11/12/19 10 9:28AM BY BARBARA SWEENEY ON/ADDEN DUM Bela [employer]-[facility] [address] [facility] [address], [place], [address], [facility] 6 12:28:32 Recurren t major depressi ve episodes 323077856 Active Bela [employer]-[facility] [address] [facility] [address], [place], [address], [facility] 6 12:28:31 Malaise and fatigue 521539901 Completed 200903/09/2014 IMPRESSI ON: LONG TALK RE WEIGHT, ADDICTIV E EATING BEHAVIOR S, WILL OCNTINUE COUNSELI NG AND TRY TO INCREASE EXERCISE . SEES DR MORALES TOO. DOES NOT FEEL SHE NEEDS MEDS FOR DEPRESSI ON, FEELS WELL MOSTLY.; RECORDED 11/12/19 10 9:28AM BY BARBARA SWEENEY ON/ADDEN DUM Bela [employer]-[facility] [address] [facility] [address], [place], [address], [facility] 6 12:28:32 Administ ration of measles and mumps and rubella vaccine Completed 201103/09/2014 RESOLVED DATE: 06/13/20 12; IMPRESSI ON: NEG MUMPS TITER, NEEDS REVACCIN ATION; RECORDED 06/13/20 12 12:55PM BY OMAYRA Saleem MD, OFFICE VISIT Bela CHOE-C [address], [place], [address], [facility] 6 12:28:32 Nausea [id number] Completed 201103/09/2014 IMPRESSI ON: RULE OUT PREGNANC Y; RECORDED 07/08/20 12 1:24PM BY BARBARA GUIDRY ON/ADDEN DUM Bela CHOE-C [address] [facility] [address], [place], [address], [facility] 6 12:28:32 Neck pain [id number] Completed 01/25/[address] [facility] 7 14:59:05 Lymphedjodie nevarez [id number] Completed 201103/09/2014 RECORDED 03/25/20 12 9:59AM BY ELIZABETH DRAKE MA, CHINTANATI ON/ADDEN DUM Bela CHOE-C [address], [place], [address], [facility] 6 12:28:31 Obesity [id number] Completed 01/08/2020 Bela CHOE-C [address], [place], [address], [facility] 0 17:12:44 Osteoart hritis of knee 476885316 Active Bela CHOE-C [address], [place], [address], [facility] 6 12:28:32 Otalgia 80718198 Completed 201103/09/2014 RECORDED 03/25/20 12 9:59AM BY ELIZABETH DRAKE MA, BARBARA ON/ADDEN DUM Bela [employer] [address] [facility] [address], [place], [address], [facility] 6 12:28:31 Synoviti s/tenosy novitis - hand 507397780 Completed 200903/09/2014 IMPRESSI ON: POSSIBLE CARPAL TUNNEL SYNDROME ; RECORDED 11/12/19 10 9:28AM BY BARBARA SWEENEY ON/ADDEN DUM Bela [employer] [address] [facility] [address], [place], [address], [facility] 6 12:28:32 Joint pain in ankle and foot Completed 200903/09/2014 IMPRESSI ON: FXT FIBULA AND OTHER IN 01/01, STILL WITH AIN EXPECTED , TX WITH ULTRAM SINCE NO CONTRAIN DICATION S AND USE MOTRIN 800MG TID WITH FOOD; RECORDED 11/12/19 10 9:27AM BY BARBARA SWEENEY ON/ADDEN DUM Bela [employer] [address] [facility] [address], [place], [address], [facility] 6 12:28:32 Pain in thoracic spine 236358835 Completed 200903/09/2014 IMPRESSI ON: MUSCULAR , STRETCH; RECORDED 11/12/19 10 9:27AM BY BARBARA SWEENEY ON/ADDEN DUM Bela [employer] PA-C [address] [facility] [address], [place], [address], [facility] 6 12:28:32 Skin sensatio n disturba nee [id number] Completed 201103/09/2014 IMPRESSI ON: AT SITE OF PREVIOUS CONTUSIO N FROM ABOUT A MONTH AGO, WITHOUT PAIN OR WITHOUT SIGNS OF CELLULIT IS, FOR NOW WILL MONITOR; RECORDED 06/12/20 12 9:03AM BY BARBARA ARTIS ON/ADDEN DUM Bela Mondragon PA-C [address], [place], [address], [facility] 6 12:28:32 Immuniza tion refused Completed 201203/09/2014 RECORDED 05/09/20 13 10:00AM BY BARBARA GUIDRY ON/ADDEN DUM Bela Mondragon FL-C [address], [place], [address], [facility] 6 12:28:32 Plantar fascial fibromat osis 56195666 Completed 201103/09/2014 RECORDED 06/12/20 12 9:04AM BY BARBARA ARTIS ON/ADDEN DUM Bela Mondragon FL-C [address] [facility] [address], [place], [address], [facility] 6 12:28:32 Pyelonep hritis 66697911 Completed 201103/09/2014 IMPRESSI ON: SEE ABOVE, PT TO FINISH BACTRIM TO ER IF CANNOT TOLERATE PO WITH VOMITING OR FEELS DIZZY.., PT WILL CALL AND CHECK WITH STITCHING MACHINE FEEDER OR OFFBEARER TOMORROW ABOUT MAKING SURE SENSITIV ITIES MATCH BACTRIM, FLUIDS REST; RECORDED 03/25/20 12 9:59AM BY ELIZABETH DRAKE MA, BARBARA ON/ADDEN DUM Bela Mondragon FL-C [address], [place], [address], [facility] 6 12:28:31 Hypertro phic conditio n of skin 86367668 Completed 201203/09/2014 IMPRESSI ON: AFTER WEIGHT LOSS. GETS INTERTRI GO FUNGAL INFECTIO NS DUE TO THIS; RECORDED 05/09/20 13 10:00AM BY BARBARA GUIDRY ON/ADDEN DUM Bela Mondragon PA-C [address] [facility] [address], [place], [address], [facility] 6 12:28:32 Influenz a vaccine needed [id number] 06 Completed 201103/09/2014 RECORDED 06/12/20 12 9:13AM BY PRATIBHA SILVEIRA, OFFICE VISIT Bela Mondragon PA-C [address] [facility] [address], [place], [address], [facility] 6 12:28:32 Pain in limb 47096574 Completed 201103/09/2014 IMPRESSI ON: PT TO SET UP APPT; RECORDED 03/25/20 12 9:59AM BY ELIZABETH DRAKE MA, ANNOTATI ON/ADDEN DUM Bela Mondragon PA-C [address] [facility] [address], [place], [address], [facility] 6 12:28:32 Inflamma tion of sacroili ac joint 81693306 Completed 201103/09/2014 IMPRESSI ON: RIGHT SIDED PAIN, CHANGE TO IBUPROFE N WITH FOOD AND TYLENOL WITH CODEINE AT NIGHT. PE 05/[address] UP PT HAS PAPERWOR K; RECORDED 07/08/20 12 1:24PM BY JULEE NESBITT I, BARBARA ON/ADDEN DUM Bela Mondragon PA-C [address] [facility] [address], [place], [address], [facility] 6 12:28:32 Morbid obesity [id number] Active Bela Mondragon PA-C [address] [facility] [address], [place], [address], [facility] 6 12:28:31 Shoulder joint pain 753889695 Completed 201103/09/2014 IMPRESSI ON: SOUNDS LIKE BURSISIT PT TO SEE ALANNA Chavez [facility] FOR INJECTIO N; RECORDED 03/25/20 12 9:59AM BY ELIZABETH DRAKE MA, ANNOTATI ON/ADDEN DUM Bela [employer] [address] [facility] [address], [place], [address], [facility] 6 12:28:32 Chronic sinusiti s 34185633 Completed 201103/09/2014 RECORDED 03/25/20 12 9:59AM BY ELIZABETH DRAKE MA, ANNOTATI ON/ADDEN DUM Bela Mondragon PA-C [address], [place], [address], [facility] 6 12:28:31 Administ ration of diphther ia and tetanus vaccine Completed 201103/09/2014 RECORDED 07/08/20 12 1:24PM BY JULEE NESBITT I, CHINTANATI ON/ADDEN DUM Bela Mondragon PA-C [address], [place], [address], [facility] 6 12:28:32 Urinary tract infectio us disease 26439976 Completed 200803/09/2014 RECORDED 12/07/19 09 8:54AM BY BRENDA STEINER MA, BARBARA ON/ADDEN DUM Bela Mondragon PA-C [address], [place], [address], [facility] 6 12:28:31 Wheezing 96536127 Completed 201103/09/2014 RECORDED 03/25/20 12 9:59AM BY ELIZABETH DRAKE MA, ANNOTATI ON/ADDEN DUM Bela Mondragon PA-C [address], [place], [address], [facility] 6 12:28:32 Inflamma tory disorder of extremit y 504897483 Completed 201104/05/2014 IMPRESSI ON: REVIEWED XRAY WITH ALPHONSE JOHNSON EXAM CONSISTE NT WITH ACHILLES TENDONIT IS, AND SWELLING NO MASS FELT; RECORDED 03/25/20 12 9:59AM BY ELIZABETH DRAKE MA, ANNOTATI ON/ADDEN DUM Bela Mondragon PA-C [address], [place], [address], [facility] 6 12:28:32 Acute bronchit is 05820540 Completed 201104/05/2014 RECORDED 03/25/20 12 9:59AM BY ELIZABETH DRAKE MA, BARBARA ON/ADDEN DUM Bela CHOE-C [address], [place], [address], [facility] 6 12:28:31 Acute pharyngi tis 032562259 Completed 201204/05/2014 IMPRESSI ON: + RAPID STREP, POSSIBLE RIGHT EARLY PERITONS ILLAR ABSCESS, TX WITH ABX/FLUI DS/NSAID S, IF WORSENIN G PAIN OR DIFFICUL TY SWALLOWI NG CALL OFFICE FOR ENT APPT.; RECORDED 12/16/19 13 10:04AM BY BARABRA ARTIS ON/ADDEN DUM Brenda green MA null, [facility] 6 15:19:04 Cough [id number] Completed 201104/05/2014 RECORDED 03/25/20 12 9:58AM BY ELIZABETH DRAKE MA, ANNOTATI ON/ADDEN DUM Brenda green [facility], [facility] 6 15:19:12 Degenera tion of interver tebral disc 84600724 Completed 201104/05/2014 RECORDED 03/25/20 12 9:59AM BY ELIZABETH DRAKE MA, BARBARA ON/ADDEN DUM Bela CHOE-C [address], [place], [address], [facility] 6 12:28:32 Dizzines s and giddines s 921095676 Completed 201204/05/2014 IMPRESSI ON: NORMAL EXAM; RECORDED 09/01/19 13 1:16PM BY CHERIE HERRERA MA, BARBARA ON/ADDEN DUM Bela Mondragon PA-C [address], [place], [address], [facility] 6 12:28:32 Edema 742944299 Completed 201104/05/2014 IMPRESSI ON: BILATERA L, LUNGS CLEAR, C/W DEPENDEN T EDEMA, HAS TAKEN HCTZ IN THE PAST WITH [facility], ALSO REVIEWED DIET/LEG ELEVATIO N/WEIGHT LOSS/COM PRESSION STOCKING S; RECORDED 06/12/20 12 9:04AM BY BARBARA ARTIS ON/ADDEN DUM Brenda green MA null, [facility] 6 15:18:56 Adult health examinat ion Completed 201304/05/2014 IMPRESSI ON: PAP IS OVERDUE, PT WILL ARRANGE THIS, PT HAS AN IUD IN PLACE. PT WILL WORK ON DIET AND EXERCISE .; RECORDED 01/17/20 14 10:22AM BY BARBARA ARTIS ON/ADDEN DUM Bela CHOE-C [address], [place], [address], [facility] 6 12:28:32 Knee pain Completed 02/02/2019 [facility] 15[facility]55:45 Lipoma of skin and subcutan eous tissue (excludi ng face) 244814306 Completed 201104/05/2014 IMPRESSI ON: BACK; RECORDED 06/12/20 12 9:04AM BY BARBARA ARTIS ON/ADDEN DUM Bela MOCK[facility] [address], [place], [address], [facility] 6 12:28:31 Low back pain 463553850 Completed 201204/05/2014 IMPRESSI ON: X 1 DAY, OCCURED WHILE BENDING OVER; RECORDED 09/05/19 13 10:23AM BY CHERIE HERRERA MA, BARBARA ON/ADDEN DUM Bela CHOE-C [address], [place], [address], [facility] 6 12:28:32 Lumbar sprain 783403973 Completed 200904/05/2014 RECORDED 11/12/19 10 9:28AM BY BARBARA SWEENEY ON/ADDEN DUM Bela Mondragno [facility] [address] [facility] [address], [place], [address], [facility] 6 12:28:32 Malaise and fatigue 951095910 Completed 200904/05/2014 IMPRESSI ON: LONG TALK RE WEIGHT, ADDICTIV E EATING BEHAVIOR S, WILL OCNTINUE COUNSELI NG AND TRY TO INCREASE EXERCISE . SEES DR MORALES TOO. DOES NOT FEEL SHE NEEDS MEDS FOR DEPRESSI ON, FEELS WELL MOSTLY.; RECORDED 11/12/19 10 9:28AM BY BARBARA SWEENEY ON/ADDEN DUM Bela [facility] [address] [facility] [address], [place], [address], [facility] 6 12:28:32 Administ ration of measles and mumps and rubella vaccine Completed 201104/05/2014 RESOLVED DATE: 06/13/20 12; IMPRESSI ON: NEG MUMPS TITER, NEEDS REVACCIN ATION; RECORDED 06/13/20 12 12:55PM BY OMAYRA Saleem MD, OFFICE VISIT Bela Mondragon [facility] [address] [facility] [address], [place], [address], [facility] 6 12:28:32 Nausea [id number] Completed 201104/05/2014 IMPRESSI ON: RULE OUT PREGNANC Y; RECORDED 07/08/20 12 1:24PM BY BARBARA GUIDRY ON/ADDEN DUM [facility] [address], [place], [address], [facility] 6 12:28:32 Lymphede ks [id number] Completed 201104/05/2014 RECORDED 03/25/20 12 9:59AM BY ELIZABETH DRAKE MA, CHINTANATI ON/ADDEN DUM Bela Mondragon PA-C [address], [place], [address], [facility] 6 12:28:31 Otalgia [id number] Completed 201104/05/2014 RECORDED 03/25/20 12 9:59AM BY ELIZABETH DRAKE MA, ANNOTLUCIA ON/ADDEN DUM Bela Mondragon PA-C [address], [place], [address], [facility] 6 12:28:31 Synoviti s/tenosy novitis - hand [id number] Completed 200904/05/2014 IMPRESSI ON: POSSIBLE CARPAL TUNNEL SYNDROME ; RECORDED 11/12/19 10 9:28AM BY BARBARA SWEENEY ON/ADDEN DUM Beal Mondragon PA-C [address], [place], [address], [facility] 6 12:28:32 Joint pain in ankle and foot Completed 200904/05/2014 IMPRESSI ON: FXT FIBULA AND OTHER IN 01/01, STILL WITH AIN EXPECTED , TX WITH ULTRAM SINCE NO CONTRAIN DICATION S AND USE MOTRIN 800MG TID WITH FOOD; RECORDED 11/12/19 10 9:27AM BY BARBARA SWEENEY ON/ADDEN DUM Bela Mondragon PA-C [address], [place], [address], [facility] 6 12:28:32 Pain in thoracic spine [id number] Completed 200904/05/2014 IMPRESSI ON: MUSCULAR , STRETCH; RECORDED 11/12/19 10 9:27AM BY BARBARA SWEENEY ON/ADDEN DUM Bela Mondragon PA-C [address], [place], [address], [facility] 6 12:28:32 Skin sensatio n disturba nce [id number] Completed 201104/05/2014 IMPRESSI ON: AT SITE OF PREVIOUS CONTUSIO N FROM ABOUT A MONTH AGO, WITHOUT PAIN OR WITHOUT SIGNS OF CELLULIT IS, FOR NOW WILL MONITOR; RECORDED 06/12/20 12 9:03AM BY BARBARA ARTIS ON/ADDEN DUM Bela Mondragon PA-C [address], [place], [address], [facility] 6 12:28:32 Knee pain Completed 201104/05/2014 RECORDED 03/25/20 12 9:59AM BY ELIZABETH DRAKE MA, BARBARA ON/ADDEN DUM Omayra garrett [facility] 9 15:55:45 Immuniza tion refused Completed 201204/05/2014 RECORDED 05/09/20 13 10:00AM BY BARBARA GUIDRY ON/ADDEN DUM Bela [employer] PA-C [address], [place], [address], [facility] 6 12:28:32 Plantar fascial fibromat osis [id number] Completed 201104/05/2014 RECORDED 06/12/20 12 9:04AM BY BARBARA ARTIS ON/ADDEN DUM Bela Mondragon PA-C [address], [place], [address], [facility] 6 12:28:32 Pyelonep hritis [id number] Completed 201104/05/2014 IMPRESSI ON: SEE ABOVE, PT TO FINISH BACTRIM TO ER IF CANNOT TOLERATE PO WITH VOMITING OR FEELS DIZZY.., PT WILL CALL AND CHECK WITH STITCHING MACHINE FEEDER OR OFFBEARER TOMORROW ABOUT MAKING SURE SENSITIV ITIES MATCH BACTRIM, FLUIDS REST; RECORDED 03/25/20 12 9:59AM BY ELIZABETH DRAKE MA, BARBARA ON/ADDEN DUM Bela Mondragon PA-C [address], [place], [address], [facility] 6 12:28:31 Hypertro phic conditio n of skin [id number] Completed 201204/05/2014 IMPRESSI ON: AFTER WEIGHT LOSS. GETS INTERTRI GO FUNGAL INFECTIO NS DUE TO THIS; RECORDED 05/09/20 13 10:00AM BY BARBARA GUIDRY ON/ADDEN DUM Bela CHOE-C [address] [facility] [address] [facility] [address], [place], [address], [facility] 6 12:28:32 Influenz a vaccine needed [id number] 06 Completed 201104/05/2014 RECORDED 06/12/20 12 9:13AM BY PRATIBHA SILVEIRA, OFFICE VISIT Bela CHOE-C [address] [facility] [address], [place], [address], [facility] 6 12:28:32 Pain in limb [id number] Completed 201104/05/2014 IMPRESSI ON: PT TO SET UP APPT; RECORDED 03/25/20 12 9:59AM BY ELIZABETH DRAKE MA, BARBARA ON/ADDEN DUM Bela Mondragon PA-C [address] [facility] [address], [place], [address], [facility] 6 12:28:32 Inflamma tion of sacroili ac joint [id number] Completed 201104/05/2014 IMPRESSI ON: RIGHT SIDED PAIN, CHANGE TO IBUPROFE N WITH FOOD AND TYLENOL WITH CODEINE AT NIGHT. PE 05/[address] UP PT HAS ANGEL K; RECORDED 07/08/20 12 1:24PM BY BARBARA GUIDRY ON/ADDEN DUM Bela MOCKC [address] [facility] [address], [place], [address], [facility] 6 12:28:32 Shoulder joint pain [id number] Completed 201104/05/2014 IMPRESSI ON: SOUNDS LIKE BURSISIT PT TO SEE [facility]; RECORDED 03/25/20 12 9:59AM BY ELIZABETH DRAKE MA, BARBARA ON/ADDEN DUM Bela Mondragon PA-C [address], [place], [address], [facility] 6 12:28:32 Chronic sinusiti s [id number] Completed 201104/05/2014 RECORDED 03/25/20 12 9:59AM BY ELIZABETH DRAKE MA, BARBARA ON/ADDEN DUM Bela Mondragon PA-C [address] [facility] [address], [place], [address], [facility] 6 12:28:31 Administ ration of diphther ia and tetanus vaccine Completed 201104/05/2014 RECORDED 07/08/20 12 1:24PM BY BARBARA GUIDRY ON/ADDEN DUM Bela Mondragon PA-C [address] [facility] [address], [place], [address], [facility] 6 12:28:32 Urinary tract infectio us disease [id number] Completed 200804/05/2014 RECORDED 12/07/19 09 8:54AM BY BRENDA STEINER MA, BARBARA ON/ADDEN DUM Bela Mondragon PA-C [address] [facility] [address], [place], [address], [facility] 6 12:28:32 Wheezing [id number] Completed 201104/05/2014 RECORDED 03/25/20 12 9:59AM BY ELIZABETH DRAKE MA, BARBARA ON/ADDEN DUM Bela Mondragon PA-C [address] [facility] [address], [place], [address], [facility] 6 12:28:32 Dysuria 65405231 Completed 06/29/2016 Brenda green MA null, [facility] 6 15:19:10 Acute pharyngi tis 840103892 Completed 06/29/2016 LUIS FERNANDO Adams, [facility] 6 15:19:04 Acute vaginiti s 85199583 Completed 06/29/2016 LUIS FERNANDO Adams, [facility] 6 15:18:52 Cough 60389397 Completed 06/29/2016 LUIS FERNANDO Adams, [facility] 6 15:19:12 Palpitat ions 74047715 Completed 01/25/2017 Omayra deluna [facility] 7 14:59:02 Spasm of back muscles 228496691 Completed 01/25/2017 Omayra deluna [facility] 7 14:59:27 Atrial fibrilla tion 70312552 Completed 02/02/2019 Omayra deluna [facility] 9 15:56:00 Spinal stenosis in cervical region 61744860 Completed 11/30/2014 mri does not show this Bela CHOE-C [address], [place], [address], [facility] 6 12:28:32 Snoring 13628579 Completed 01/25/2017 Omayra deulna [facility] 7 14:58:59 Thyroid nodule 843662933 Active Bela Giancarlo CHOE-C [address], [place], [address], [facility] 6 12:28:31 Insomnia 054388842 Active Belajihan Mondragon PA-C [address], [place], [address], [facility] 6 12:28:31 Degenera tion of thoracic interver tebral disc 11892477 Active T1/T2 Bela CHOE-C [address], [place], [address], [facility] 6 12:28:32 Degenera tion of cervical interver tebral disc 68630206 Completed 01/25/2017 Omayra Curiel-Pamela deluna, [facility] 7 14:59:09 Edema 991387098 Completed 06/29/2016 Brenda green MA null, [facility] 6 15:18:56 Rapid atrial fibrilla tion 784797191 Completed 01/27/2018 Omayra garrett null, [facility] 8 11:21:10 Paroxysm al atrial fibrilla tion 527111878 Active Omayra Curiel-Pamela mcmanusorenmarta null, [facility] 6 15:17:25 Panic disorder 122244193 Completed 02/02/2019 Omayra Curiel-Pamela macrelinonmarta deluna, [facility] 9 15:55:48 Patent foramen ovale 373154342 Active Omayra Curiel-D yonathanorenmarta null, [facility] 6 15:17:25 Joint pain 15355086 Completed 01/25/2017 Omayra garrett null, [facility] 7 14:59:13 Anxiety 23579783 Completed 01/08/2020 Bela Mondragon PA-C [address], [place], [address], [facility] 0 17:12:31 Asthma 030456722 Completed 201701/08/2020 Bela CHOE-Man [address], [place], [address], [facility] 0 17:12:58 Ex-smoke r 4313885 Active 2017 Brenda green MA null, [facility] 8 15:42:54 Small bowel obstruct ion 315076421 Active 2018 Brenda green [place] null, [facility] 9 09:46:54 Generali zed anxiety disorder 05285175 Active 2019 Bela Mondragon PA-C [address], [place], [address], [facility] 0 17:12:32 Mild intermit tent asthma 045988184 Active 2019 Bela Mondragon PA-C [address], [place], [address], [facility] 0 17:13:08 [facility]de [facility] 007436297 Active 2019 Bela MOCKC [address], [place], [address], [facility] 0 17:13:31 Obstruct jefry sleep apnea syndrome 28358692 Active 2022 Cabrera Mondragon PA-C [address], [place], [address], [facility] 3 17:09:42 Pain of left hip joint 25089450296 9100 Active 2022 Cabrera Mondragon PA-C [address], [place], [address], [facility] 3 17:10:00 Lateral epicondy litis of left humerus 05000113630 9100 Active 2022 Cabrera Mondragon PA-C [address], [place], [address], [facility] 3 13:33:40 Problem Notes None recorded. Procedures Surgical History Date Name Laterality Status Provider Name and Address Organization Details Recorded Time 05/21/20 23 Endoscopic us exam esoph completed Leslie Alba [facility] 05/21/2023 11:10:55 04/20/20 23 laparoscopic appendectomy completed Leslie Alba [facility] 04/22/2023 10:12:44 04/20/20 23 Appendectomy completed Avelina Encinas RN [facility] 04/30/2023 10:29:16 04/19/20 23 Appendectomy completed Avelina Encinas RN [facility] 04/25/2023 09:55:00 11/24/19 22 cardioversion completed Avelina Encinas RN [facility] 11/27/2021 13:27:24 01/24/20 17 extraction of wisdom tooth completed Brenda zurita [place] [facility] 01/12/2019 09:34:35 Mammogram screening completed Brenda zurita [facility] 06/29/2016 15:20:32 Colonoscopy completed Brenda zurita [facility] 06/29/2016 15:20:36 Imaging Results Imaging Date Name Status LastModified by Organiz ation Details LastModified Time 05/21/2023 upper endoscopy procedure (EGD) (PROC) completed [facility] (Medical Records) [address] [place], [address], 05/21/2023 11:11:15 05/21/2023 US, abdomen, complete completed [email or web address] [facility] (Medical Records) [address] [place], [address], 05/22/2023 12:50:47 Procedure Notes None recorded. Medical Equipment None Reported. Allergies No known drug allergies Medications Name Sig Start Date Stop Date Status Note LastModified by Organization Details LastModified Time cartia xt 120 mg cp24 active Not Available Not Available Not Available hydrochlo rothiazid e 25 mg tabs active Not Available Not Available Not Available mirena 20 mcg/24hr iud 03/27 completed Not Available Not Available Not Available gabapenti n 100 mg caps active Not Available Not Available Not Available naproxen 500 mg tabs active Not Available Not Available Not Available oxybutyni n chloride er 10 mg tb24 active Not Available Not Available Not Available tramadol hcl 50 mg tabs active Not Available Not Available Not Available tolterodi ne ER 2 mg capsule,e xtended release 24 hr TAKE 1 CAPSULE BY MOUTH EVERY DAY. 12/13 completed Not Available Not Available Not Available fluoxetin e 40 mg capsule DAILY 12/06 completed RECORDED 12/07/19 09 9:50AM BY BRENDA STEINER MA, OFFICE VISIT; Not Available Not Available Not Available cyclobenz aprine 10 mg tablet Take 1 tablet 3 times a day by oral route for 10 days. active Not Available Not Available No t Available amoxicill in 500 mg capsule Take 1 capsule every 8 hours by oral route as directed for 7 days. 10/30 completed Not Available Not Available Not Available Mirena 21 mcg/24 hr (up to 8 years) 52 mg intrauter ine device Take 1 device every day by intraute rine route around the clock. active Not Available Not Available No t Available prednison e 10 mg tablet take 60mg x 2 days, take 50mg x 2 days, take 40mg x 2 days, 30mg x 2 days, 20mg x 2 days, 10mg x 2 days. 01/12 completed Not Available Not Available Not Available clindamyc in HCl 300 mg capsule Take 1 capsule every 6 hours by oral route for 14 days. 11/26 completed Not Available Not Available Not Available oxybutyni n chloride ER 10 mg tablet,ex tended release 24 hr Take 2 tablets every day by oral route for 30 days. 01/09 completed ran out 12/28/20 will hold for now. Not Available Not Available Not Available azithromy celena 250 mg tablet TAKE 2 TABLETS (500 MG) BY ORAL ROUTE ONCE DAILY FOR 1 DAY THEN 1 TABLET (250 MG) BY ORAL ROUTE ONCE DAILY FOR 4 DAYS 10/28 completed Not Available Not Available Not Available ibuprofen 800 mg tablet Take 1 tablet twice a day by oral route as directed for 30 days. 12/28 completed rarely d/t gi issues, Not Available Not Available Not Available ofloxacin 0.3 % eye drops INSTILL 1-2 DROPS IN AFFECTED EYES EVERY 2-4 HRS WHILE AWAKE FOR 2 DAYS THEN 1-2 DROPS EVERY 6 HRS WHILE AWAKE FOR 5 DAYS. 05/30 completed Not Available Not Available Not Available tizanidin e 4 mg tablet Take by oral route for 7 days. 01/09 completed Not Available Not Available Not Available fluconazo le 150 mg tablet Take 1 tablet every day by oral route for 1 day. active Not Available Not Available No t Available benzonata te 200 mg capsule Take 1 capsule 3 times a day by oral route as needed for cough for 10 days. active Not Available Not Available No t Available hydrocodo ne 5 mg-acetam inophen 325 mg tablet TAKE 1 TABLET BY MOUTH EVERY 6 HOURS NEEDED FOR ACUTE PAIN. 05/30 completed Not Available Not Available Not Available ondansetr on HCl 4 mg tablet TAKE 1 TABLET BY MOUTH EVERY 8 HOURS NEEDED FOR NAUSEA / VOMITING 04/18 completed Not Available Not Available Not Available prednison e 20 mg tablet 2 tabs x 2 days, 1 tab x 2 days 1/2 tab x 2 days 02/13 completed Not Available Not Available Not Available acetamino phen 300 mg-codein e 30 mg tablet Take 2 tablets every 4-6 hours by oral route as needed for 5 days. 06/20 completed Not Available Not Available Not Available chlorthal idone 25 mg tablet TAKE 1 TABLET BY MOUTH EVERY DAY DIRECTED 01/09 completed Not Available Not Available Not Available ciproflox acin 250 mg tablet TAKE 1 TABLET BY MOUTH TWICE DAILY FOR 3 DAYS 04/17 completed Not Available Not Available Not Available sulfameth oxazole 800 mg-trimet hoprim 160 mg tablet Take 1 tablet by oral route for 3 days. 10/26 completed Not Available Not Available Not Available omeprazol e 40 mg capsule,d elayed release Take 1 capsule every day by oral route for 30 days. 05/30 completed Not Available Not Available Not Available aspirin 81 mg tablet,de layed release Take 1 tablet every day by oral route. 01/12 completed Not Available Not Available Not Available tramadol 50 mg tablet TAKE 1 TABLET BY MOUTH EVERY 8 HOURS FOR 7 DAYS NEEDED 06/23 completed Not Available Not Available Not Available meloxicam 7.5 mg tablet TAKE 1 TABLET BY MOUTH EVERY DAY FOR 14 DAYS NEEDED 01/09 completed Not Available Not Available Not Available oxycodone -acetamin ophen 5 mg-325 mg tablet EVERY 6 HOURS NEEDED 05/19 completed RECORDED 07/22/20 13 9:25AM BY LAN SLOAN MD, MEDICATI ON [facility] N; Not Available Not Available Not Available Fluticaso ne Propionat e (Inhal) 50 mcg/BLIST inhl powd DAILY 12/13 completed RECORDED 12/14/19 10 9:55AM BY ANDREWS ONTIVEROS, JO ANN, MEDICATI ON [facility] CT[facility]ATIO N; Not Available Not Available Not Available amoxicill in 875 mg tablet 10/26 completed Not Available Not Available Not Available famotidin e 20 mg tablet Take 1 tablet twice a day by oral route as needed for 30 days. 12/30 completed Not Available Not Available Not Available lorazepam 0.5 mg tablet Take 1 tablet twice a day by oral route for 14 days. 2015 active Not Available Not Available Not Avai lable aspirin 325 mg tablet,de layed release Take 1 tablet every day by oral route for 30 days. active Not Available Not Available No t Available benzonata te 100 mg capsule TAKE 1 CAPSULE BY MOUTH THREE TIMES DAILY FOR 7 DAYS active Not Available Not Available No t Available Cartia XT 120 mg capsule,e xtended release Take 1 capsule every day by oral route for 30 days. active Not Available Not Available No t Available hydrocodo ne 7.5 mg-acetam inophen 325 mg tablet active Not Available Not Available Not Available erythromy celena 5 mg/gram (0.5 %) eye ointment [apply 1 cm ribbon in eye(s) up to 6x/day x7-10 days] 01/08 completed Not Available Not Available Not Available Guaifenes in AC 10 mg-100 mg/5 mL oral liquid Take 10 mL every 6 hours by oral route as directed for 4 days. 06/29 completed Not Available Not Available Not Available prednison e 50 mg tablet Take 1 tablet every day by oral route for 5 days. 06/29 completed Not Available Not Available Not Available flecainid e 50 mg tablet TAKE 1 TABLET BY MOUTH TWICE DAILY active Not Available Not Available No t Available indometha celena 50 mg capsule THREE TIMES DAILY 02/16 completed RECORDED 03/07/20 11 10:20AM BY JULEE NESBITT I, MEDICATI ON [facility] CT[facility]AT[facility] N; Not Available Not Available Not Available hydrocodo ne-homatr opine 5 mg-1.5 mg/5 mL oral syrup 06/29 completed Not Available Not Available Not Available gabapenti n 300 mg capsule Take 2 capsules 3 times a day by oral route as needed for 30 days. 06/20 completed Not Available Not Available Not Available sertralin e 25 mg tablet Take 1 tablet every day by oral route. 05/30 completed Not Available Not Available Not Available lidocaine HCl 2 % mucosal solution active Not Available Not Available Not Available omeprazol e 20 mg capsule,d elayed release Take 1 capsule twice a day by oral route for 30 days. 01/25 completed Not Available Not Available Not Available monteluka st 10 mg tablet Take 1 tablet every day by oral route for 90 days. active Not Available Not Available No t Available hydrochlo rothiazid e 25 mg tablet take 1 tablet by mouth once daily 05/30 completed Not Available Not Available Not Available furosemid e 20 mg tablet Take 1 tablet as needed by oral route for 30 days. active Not Available Not Available No t Available gabapenti n 100 mg capsule TAKE 1 CAPSULE BY MOUTH THREE TIMES DAILY 06/20 completed Not Available Not Available Not Available metoprolo l succinate ER 25 mg tablet,ex tended release 24 hr TAKE 1 TABLET BY MOUTH DAILY active Not Available Not Available No t Available ibuprofen 600 mg tablet Take 1 tablet every 4-6 hours by oral route as needed for 10 days. 06/20 completed Not Available Not Available Not Available levofloxa celena 500 mg tablet 06/29 completed Not Available Not Available Not Available albuterol sulfate HFA 90 mcg/actua tion aerosol inhaler INHALE 2 PUFFS BY MOUTH EVERY 4 HOURS NEEDED active Not Available Not Available No t Available Naprosyn 500 mg tablet TWO TIMES DAILY 2013 active RECORDED 12/26/19 14 4:11PM BY OMAYRA Saleem MD, OFFICE VISIT; Not Available Not Available Not Available fluoxetin e 20 mg capsule DAILY 12/06 completed RECORDED 12/07/19 09 9:50AM BY BRENDA STEINER MA, OFFICE VISIT; Not Available Not Available Not Available loratadin e 10 mg tablet Take 1 tablet every day by oral route for 30 days. active Not Available Not Available No t Available fluticaso ne propionat e 110 mcg/actua tion HFA aerosol inhaler INHALE 2 PUFFS BY MOUTH TWICE DAILY DIRECTED 2022 active Not Available Not Available Not Avai lable diazepam 5 mg tablet Take 1 tablet 3 times a day by oral route as needed for 4 days. 04/18 completed Not Available Not Available Not Available amoxicill in 875 mg-potass ium clavulana te 125 mg tablet TAKE 1 TABLET BY MOUTH TWICE DAILY active Not Available Not Available No t Available albuterol (refill) 90 mcg/actua tion aerosol inhaler Q 4-6 HRS PRN COUGH/WH EEZE 02/06 completed RECORDED 03/17/20 12 8:51AM BY CHERIE HERRERA MA, MEDICATI ON [facility] CT[facility]AT[facility] N; Not Available Not Available Not Available codeine-g uaifenesi n oral syrup Q 6HRS PRN COUGH 12/16 completed RECORDED 12/17/19 10 2:04PM BY BARBARA STARK ON/SAMINA VILLEGAS; Not Available Not Available Not Available cyclobenz aprine 5 mg tablet Take 1 tablet every 6 hours by oral route as needed for 30 days. 06/20 completed Not Available Not Available Not Available amoxicill in 500 mg-clarit hromycin 500 mg-lansop razole 30 mg combo pack Take 1 pack twice a day by oral route for 14 days. 01/25 completed Not Available Not Available Not Available naproxen TWO TIMES DAILY, NEEDED, FOR NECK PAIN 08/08 completed RECORDED 09/13/19 11 9:17AM BY ДМИТРИЙ NUNES, MEDICATI ON [facility] CTIVATIO N; Not Available Not Available Not Available Ultram BID 11/11 completed RECORDED 11/12/19 10 9:32AM BY BARBARA SWEENEY ON/SMAINA VILLEGAS; Not Available Not Available Not Available Tylenol Arthritis Pain Take 2 a day as needed 12/30 completed Not Available Not Available Not Available Advair HFA BID 02/06 completed RECORDED 02/07/20 11 4:15PM BY BRENDA STEINER MA, OFFICE VISIT; Not Available Not Available Not Available Flovent Diskus 50 mcg/actua tion powder for inhalatio n Inhale 2 puffs twice a day by inhalati on route for 30 days. 01/12 completed Not Available Not Available Not Available Multaq 400 mg tablet po if pt can afford 06/23 completed Not Available Not Available Not Available Vicodin 5 mg-300 mg tablet EVERY 6 HOURS PRN 09/05 completed RECORDED 09/05/19 13 12:18PM BY ANDREWS ONTIVEROS, PAPenny, OFFICE VISIT; Not Available Not Available Not Available Eliquis 5 mg tablet TAKE 1 TABLET BY MOUTH TWICE DAILY active Not Available Not Available No t Available ProAir RespiClic k 90 mcg/actua tion breath activated Inhale 2 puffs every 4 hours by inhalati on route as needed for 30 days. 07/30 completed Not Available Not Available Not Available tramadol 100 mg tablet TAKE 1 TABLET BY MOUTH EVERY 4-6 HOURS NEEDED FOR PAIN ON A SCALE OF 7-10 DO NOT EXCEED 4 DOSES IN 24 HOURS 07/24 completed Not Available Not Available Not Available Vitals Date Recorded Body height Provider Name an d Address Organization Details Last Updated DateTime 01/08/2023 171.45 cm LUIS FERNANDO [facility] 01/08/2023 15:48:36 Date Recorded Body height Body mass index (BMI) Body weight Heart rate Oxygen saturation Oxygen saturation in Arterial blood by Pulse oximetry Body temperature Systolic blood pressure Diastolic blood pressure Provider Name and Address Organization Details Last Updated DateTime 171.45 cm 50.2 kg/m2 293588. 52 g 60 /min 97 % 97 % 98.3 [degF] 138 mm[Hg] 87 mm[Hg] [facility] 15:[facility]22 Date Recorded Body height Body mass index (BMI) Body weight Heart rate Oxygen saturation Oxygen saturation in Arterial blood by Pulse oximetry Body temperature Systolic blood pressure Diastolic blood pressure Provider Name and Address Organization Details Last Updated DateTime 3 171.45 cm 49.2 kg/m2 841325. 97 g 94 /min 96 % 96 % 97.8 [degF] 113 mm[Hg] 80 mm[Hg] Isela Metz MA [facility] 3 13:21:43 Date Recorded Body height Body mass index (BMI) Body weight Heart rate Oxygen saturation Oxygen saturation in Arterial blood by Pulse oximetry Body temperature Systolic blood pressure Diastolic blood pressure Provider Name and Address Organization Details Last Updated DateTime 3 171.45 cm 48.1 kg/m2 468657. 82 g 68 /min 96 % 96 % 98.3 [degF] 160 mm[Hg] 98 mm[Hg] Isela Metz MA [facility] 3 14:57:00 Social History Question Answer Notes LastModified by Organizat ion Details LastModified Time Tobacco Smoking Status Former Smoker Cherie deluna [facility] 05/18/2014 10:29:49 Do You Have An Advance Directive? No [email or web address] Information not available 06/20/2022 What Is Your Level Of Alcohol Consumption? Occasional [email or web address] Information not available 12/29/2014 Is Blood Transfusion Acceptable In An Emergency? Yes Information not available 01/20/2016 What Is Your Level Of Caffeine Consumption? Occasional [email or web address] Information not available 12/29/2014 How Much Tobacco Do You Chew? None Information not available 06/29/2016 In The 14 Days Before Symptom Onset, Have You Had Close Contact With A Laboratory-confi rmed COVID-19 While That Case Was Ill? No [email or web address] Information not available 06/20/2022 In The 14 Days Before Symptom Onset, Have You Had Close Contact With A Person Who Is Under Investigation For COVID-19 While That Person Was Ill? No Information not available 06/20/2022 Have You Been To An Area Known To Be High Risk For COVID-19? No [email or web address] Information not available 06/20/2022 Are You Currently Employed? Yes [email or web address] Information not available 12/29/2014 What Type Of Diet Are You Following? REGULAR Information not available 12/29/2014 Which Illicit Or Recreational Drugs Have You Used? 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 With Others (Juan Carlos) And 2 Daughters [email or web address] Information not available 06/20/2022 Do You Take Precautions To Prevent Distracted Driving? Yes [email or web address] Information not available 01/20/2016 How Often Do You Need To Have Someone Help You When You Read Instructions, Pamphlets, Or Other Written Material From Your Doctor Or Pharmacy? Sometimes [email or web address] Information not available 01/20/2016 Have You Served In The ? No Information not available 06/29/2016 Have You Or Anyone In Your Household Had Any Of The Following Symptoms In The Last 14 Days: Sore Throat, Cough, Chills, Body Aches For Unknown Reasons, Shortness Of Breath For Unknown Reasons, Loss Of Smell, Loss Of Taste, Fever At Or Greater Than 100 Degrees Fahrenheit? No Information not available 01/09/2021 Are You Or Anyone In Your Household A Health Care Provider Or Emergency Responder? No Information not available 01/09/2021 To The Best Of Your Knowledge Have You Been In Close Proximity To Any Individual Who Tested Positive For COVID-19? No Information not available 01/09/2021 Have You Recently Traveled To A COVID-19 High Risk Area Or Gathering In The Last 10 Days? No Information not available 01/09/2021 What Was The Date Of Your Most Recent Tobacco Screening? 06/20/2022 [email or web address] Information not available 06/20/2022 How Many Children Do You Have? 2 Adriana And Renee Information not available 03/27/2018 What Is Your Current Pack Years? 10packyears [email or web address] Information not available 06/20/2022 Do You Use Protection During Sex? No Information not available 06/29/2016 Seat Belts Used Routinely Yes [email or web address] Information not available 06/20/2022 Are You Sexually Active? Yes Information not available 06/29/2016 Smoke Alarm In Home Yes [email or web address] Information not available 06/20/2022 Are You Passively Exposed To Smoke? No Information not available 06/29/2016 General Stress Level Medium [email or web address] Information not available 06/20/2022 Do You Use Sunscreen Routinely? Yes [email or web address] Information not available 12/29/2014 How Many Years Have You Smoked Tobacco? 10 [email or web address] Information not available 12/29/2014 Do You Or Have You Ever Used Any Other Forms Of Tobacco Or Nicotine? No [email or web address] Information not available 06/20/2022 Sex: Unknown Functional Status Question Answer Note LastModified by Organizat ion Details LastModified Time Are you able to walk? YESWOREST [email or web address] Information not available 06/20/2022 Are you able to care for yourself? Yes [email or web address] Information not available 12/29/2014 What is your exercise level? Occasional [email or web address] Information not available 02/02/2019 Mental Status None recorded. Family History Relationship Description Onset Age of this Age Resolved Age Notes LastModified by Organization Details LastModified Time Father Alcohol abuse Not available 2019 15:29:15 Notes:Pt is adopted no FH kn own Medical History Condition Response Anxiety Disorder Y Heart Problems Y Eating Disorder Y Obesity Y Vision or Eye Problems Y Arthritis Y Bladder Problems Y Depression Y Asthma Y Gynecological History Statement/Question Response HPV Vaccine Date of Last Pap Smear Date of Last Colonoscopy Most Recent Mammogram Most Recent Bone Density Obstetrics History GPAL:G 0 P 0 0 0 0 Immunizations Vaccine Type Date Status Note Provider Nam jodie and Address Organization Details Recorded Time COVID-19, mRNA, LNP-S, PF, 30 mcg/0.3 mL dose 02/28/2021 completed LUIS FERNANDO [facility] [place] 12/13/2021 11:25:33 COVID-19, mRNA, LNP-S, PF, 30 mcg/0.3 mL dose 03/21/2021 completed [facility] 11:25:33 MMR 10/21/2002 completed Not Available [facility] 03/09/2014 14:00:38 Tdap 06/12/2012 completed Not Available [facility] 03/09/2014 14:00:38 MMR 06/12/2012 completed Not Available [facility] 03/09/2014 14:00:38 Past Encounters Encounter ID Performer Location Encounter Start Date Encounter Closed Date Diagnosis/Indication Diagnosis SNOMED-CT Code Diagnosis ICD10 Code [id number] [facility]Comm erce [address] [facility],[address] [place] [address] 11/13/2006 00:00:00 [id number] auto[facility]Comm erce [address] [facility],[address] [place] [address] 12/23/2006 00:00:00 [id number] auto[facility] erce [address] [facility],[address] [place] [address] 07/28/2007 00:00:00 [id number] auto[facility]Comm erce [address] [facility],[address] [place] [address] 12/06/2008 00:00:00 [id number] auto[facility] erce [address] [facility],[address] [place] [address] 03/25/2009 00:00:00 [id number] auto[facility] erce [address] [facility],[address] [place] [address] 04/28/2009 00:00:00 [id number] auto[facility]Comm erce [address] [facility],[address] [place] [address] 11/11/2009 00:00:00 [id number] auto[facility]Comm erce [address] [facility],[address] [place] [address] 12/20/2009 00:00:00 [id number] auto[facility] erce [address] [facility],[address] [place] [address] 02/17/2010 00:00:00 [id number] [place] [address] 07/25/2010 00:00:00 [id number] [address] [address] [place] [address] 09/13/2010 00:00:00 [id number] [address] [address] [place] [address] 11/11/2010 00:00:00 [id number] [address] er[address] [place] [address] 02/01/2011 00:00:00 [id number] autoEComm erce [address] [facility] [address] [place] [address] 02/05/2011 00:00:00 [id number] autoEComm erce [address] [facility],[address] [place] [address] 02/06/2011 00:00:00 [id number] auto[facility]Comm erce [address] [facility],[address] [place] [address] 02/15/2011 00:00:00 [id number] autoEComm erce [address] [facility] [address] [place] [address] 03/08/2011 00:00:00 [id number] autoEComm erce [address] [facility],[address] [place] [address] 11/26/2011 00:00:00 [id number] autoEComm erce [address] [facility] [address] [place] [address] 11/30/2011 00:00:00 [id number] autoEComm erce [address] [facility],[address] [place] [address] 01/09/2012 00:00:00 [id number] autoEComm erce [address] [facility] [address] [place] [address] 03/25/2012 00:00:00 [id number] autoEComm erce [address] [facility] [address] [place] [address] 06/12/2012 00:00:00 [id number] autoEComm erce [address] [facility],[address] [place] [address] 07/08/2012 00:00:00 [id number] autoEComm erce [address] [facility] [address] [place] [address] 09/01/2012 00:00:00 [id number] autoEComm erce [address] [facility] [address] [place] [address] 09/05/2012 00:00:00 [id number] autoEComm erce [address] [facility] [place] [address] 10/16/2012 00:00:00 [id number] autoEComm erce [address] [facility] [address] [place] [address] 12/15/2012 00:00:00 [id number] autoEComm erce [address] [facility] [place] [address] 05/09/2013 00:00:00 [id number] autoEComm erce [address] [facility] [place] [address] 07/27/2013 00:00:00 [id number] autoEComm erce [address] [facility] [place] [address] 12/25/2013 00:00:00 [id number] autoEComm erce [address] [facility] [place] [address] 01/16/2014 00:00:00 [id number] Elizabeth Drake MA Main Office [address] [facility] [address] [place] [address] 05/18/2014 10:10:59 05/18/2014 10:49:51 Dysuria 84488356 Acute pharyngitis 389118 003 [id number] Pratibha Silveira MA Main Office [address] [facility] [address] [place] [address] 05/29/2014 11:51:21 05/29/2014 12:23:45 Cough [id number] Main Office [address] [facility] [address] [place] [address] 06/08/2014 13:52:54 06/08/2014 14:36:30 Palpitations 85377088 [id number] Jena Dominique Main Office [address] [address] [place] [address] 09/20/2014 11:26:27 09/20/2014 11:45:06 Backache 354109027 [id number] William Johnson Main Office [address] [address] [place] [address] 11/08/2014 09:40:15 11/08/2014 10:41:46 Acute pharyngitis 358803902 Cough 17375516 [id number] Jena Dominique Main Office [address] [address] [place] [address] 11/17/2014 16:24:25 11/17/2014 17:32:05 Palpitations 06473874 Atrial fibrillation 4943 6004 Neck pain 64268064 [id number] Irina Ayush LUIS FERNANDO Main Office [address] [address] [place] [address] 11/23/2014 13:19:45 11/23/2014 14:23:50 Atrial fibrillation 59991194 Spinal guerrero nosis in cervical region 12347070 Snoring 46304516 Thyroid nodule 543029272 Insomnia 345379167 [id number] Main Office [address] [address] [place] [address] 12/13/2014 14:13:19 12/13/2014 14:49:18 Atrial fibrillation 01641407 Degenerati on of cervical intervertebral disc 35396355 Thyroid nodule 129324255 Edema 090643239 [id number] Omayra rush Main Office [address] [address] [place] [address] 12/29/2014 09:06:58 12/29/2014 10:00:23 Adult health examination 150095419 Degenerati on of cervical intervertebral disc 14324589 Atrial fibrillation 4943 6004 Thyroid nodule 684766574 Edema 796225676 [id number] Juan Diego Cali MD Main Office [address] [address] [place] [address] 08/03/2015 11:18:40 08/03/2015 11:44:57 Cough 25714925 R05 [id number] Omayra rush Main Office [address] [place] [address] 12/19/2015 09:57:59 12/19/2015 11:39:30 Palpitations 13479939 R00.2 Rapid atri al fibrillation 331142387 I48.91 [id number] Claire Quinonez Main Office [address] [place] [address] 12/21/2015 10:51:33 12/21/2015 11:58:58 Paroxysmal atrial fibrillation 593212437 I48.0 Panic disorder 460651865 F41.0 Snoring 86012155 R06.83 [id number] Hollie Aguayo Main Office [address] [place] [address] 01/02/2016 13:10:18 01/02/2016 14:49:25 Paroxysmal atrial fibrillation 479611262 I48.0 Edema 388579637 R60.9 Joint pain 67172097 M25. 50 Patent foramen ovale 204 465849 Q21.1 Anxiety 79361525 F41.9 [id number] [facility] Main [facility] [address] [place] [address] 01/20/2016 14:12:02 01/20/2016 15:11:46 Adult health examination 785566223 Z00.00 Screening for malignant neoplasm of breast 098321802 Z12.39 Patent foramen ovale 204 839611 Q21.1 Paroxysmal atrial fibrillation 513703216 I48.0 Edema 970467415 R60.9 [id number] [facility] Main Office [address] [place] [address] 06/06/2016 13:54:52 06/06/2016 14:26:07 Atrial fibrillation 39122006 I48.91 Acute pharyngitis 449748 003 J02.9 Cough 39060781 R05 [id number] Lan Oliver MD Main Office [address] [place] [address] 06/09/2016 10:25:58 06/09/2016 11:21:14 Cough variant asthma 575934111 J45.991 [id number] Omayrajodie Whyte [place] Main Office [address] [place] [address] 06/11/2016 10:46:37 06/11/2016 11:26:31 Asthmatic bronchitis 046091993 J45.909 [id number] Omayra Whyte adri Main Office [address] [facility] [address] [place] [address] 06/29/2016 15:09:06 06/29/2016 15:58:04 Acute bacterial bronchitis 607121050 J20.9 Elevated blood-pressure reading without diagnosis of hypertension 374929108 R03.0 [id number] Omayra fergusonenzo Main Office [address] [facility] [address] [place] [address] 07/30/2016 13:44:57 07/30/2016 14:59:36 Benign essential hypertension 6845792 I10 [id number] Omayra CurielMarta [place] Main Office [address] [address] [place] [address] 10/26/2016 14:44:08 10/26/2016 15:35:24 Acute pharyngitis 958473856 J02.9 Elevated blood-pressure reading without diagnosis of hypertension 583135321 R03.0 [id number] Juan Diego Cali MD Main Office [address] [facility] [address] [place] [address] 10/27/2016 10:46:26 10/27/2016 11:22:38 Acute pharyngitis 108036749 J02.9 Exudative pharyngitis 12 7334100 J02.9 [id number] Willy avina Main Office [address] [facility] [address] [place] [address] 10/30/2016 08:51:17 10/30/2016 09:54:13 Acute pharyngitis 036402054 J02.9 Dental abscess 703517506 K04.7 Peritonsillar abscess 15 878671 J36 Low back pain 204792571 M54.5 Impacted cerumen 7656531 6 H61.21 [id number] Omayra fergusonenzo Main Office [address] [address] [place] [address] 11/26/2016 08:54:30 11/26/2016 09:29:41 Amenorrhea 66895305 N91.2 Gastroesop hageal reflux disease 241097191 K21.9 Nausea 458194570 R11.0 Body mass index 40+ - severely obese 686591524 Z68.41 Obesity 021233852 E66.9 [id number] [facility] Main Office [address] [place] [address] 01/25/2017 14:31:24 01/25/2017 15:18:18 Adult health examination 601554813 Z00.00 Screening for malignant neoplasm of breast 400722334 Z12.39 Urinary incontinence 165 806300 R32 Morbid obesity 291127975 E66.01 Obesity 940825500 E66.9 Paroxysmal atrial fibrillation 383243727 I48.0 Pain in right knee 31168 18595 47847 M25.561 Sleep apnea 56934034 G47 .30 [id number] [facility] Main Office [address] [place] [address] [place] [address] 10/10/2017 15:31:26 10/10/2017 16:02:27 Wheezing 74011738 R06.2 Cough 79279629 R05 Acute bronchitis 4864900 2 J20.9 Pain in right knee 10704 42348 50295 M25.561 [id number] [facility] Main [address] [place] [address] 10/28/2017 15:53:21 10/28/2017 17:35:33 Cough 00842457 R05 Pain of right wrist 3169 450746 87662 M25.531 Allergic rhinitis 656489 04 J30.9 Asthma 742973952 J45.20 [id number] [facility] Main Office [address] [place] [address] [place] [address] 11/18/2017 13:44:44 11/18/2017 15:46:12 Cough 57397107 R05 Dyspnea 710926986 R06.00 Asthma 846439796 J45.20 Paroxysmal atrial fibrillation 830055607 I48.0 Obstructiv e sleep apnea syndrome 92323570 G47.33 Seasonal a llergic rhinitis 822154401 J30.2 [id number] [facility] Main Office [address] [place] [address] [address] [place] [address] 01/27/2018 10:50:09 01/27/2018 11:48:58 Adult health examination 608402469 Z00.00 Screening for malignant neoplasm of breast 421764823 Z12.39 Lymphedema of lower extremity 549654652 I89.0 Asthma 789050189 J45.90 9 Body mass index 40+ - severely obese 715117547 E66.01 Z68.41 [id number] Omayra Pato adri Main Office [address] [address] [place] [address] 03/27/2018 11:24:04 03/27/2018 12:19:20 Lateral epicondylitis 197376198 M77.11 [id number] Juan Diego aCli MD Main Office [address] [address] [place] [address] 06/11/2018 09:23:10 06/11/2018 10:12:36 Body mass index 40+ - severely obese 277490512 Z68.42 Fatigue 52526765 R53.83 Anxiety 64112709 F41.9 Morbid obesity 512241591 E66.01 [id number] Omayra Pato adri Main Office [address] [address] [place] [address] 07/30/2018 10:40:47 07/30/2018 11:37:06 Acute asthma 438915517 J45.901 [id number] Ana Maria Gallego Main Office [address] [address] [place] [address] 01/12/2019 09:27:00 01/12/2019 10:40:07 Indigestion 389384651 K30 Pain in left knee 171240 4949 21170 M25.562 Diarrhea 84786327 R19.7 [id number] Omayra Pato adri Main Office [address] [address] [place] [address] 02/02/2019 15:28:28 02/02/2019 16:19:18 Adult health examination 635919164 Z00.00 Screening for malignant neoplasm of breast 637344552 Z12.39 Patent foramen ovale 204 143798 Q21.1 Paroxysmal atrial fibrillation 773657665 I48.0 Lymphedema of lower extremity 685157443 I89.0 Obstructiv e sleep apnea syndrome 74788909 G47.33 Body mass index 40+ - severely obese 598004001 E66.01 Z68.42 [id number] Cabrera Mondragon PA-C Main Office [address] [address] [place] [address] 04/07/2019 13:19:55 04/07/2019 14:23:48 Pain in left knee 9340841135 62674 M25.562 Gastroesop hageal reflux disease 740215922 K21.9 [id number] Omayra Pato rush Main Office [address] [address] [place] [address] 12/31/2019 13:03:19 12/31/2019 14:22:13 Asthma 321706556 J45.909 Urge incon tinence of urine 36571885 N39.41 Lymphedema of lower extremity 876307888 I89.0 [id number] Bela Mondragon PA-C [address] [address] [place] [address] 01/08/2020 15:07:08 01/11/2020 08:39:09 Indigestion 187743534 K30 Generalize d anxiety disorder 06932931 F41.1 Lymphedema of lower extremity 597387714 I89.0 [id number] Lan Oliver MD [facility] [address] [place] [address] [place] [address] 04/01/2020 07:58:50 04/01/2020 15:09:46 Abdominal pain 65086864 R10.9 [id number] Ana Maria Gallego [address] [address] [place] [address] 04/22/2020 06:41:45 04/24/2020 10:57:02 [id number] Ana Maria Gallego Main Office [address] [place] [address] [place] [address] 05/30/2020 15:06:28 05/30/2020 16:57:55 Adult health examination 864926320 Z00.00 Generalize d anxiety disorder 35628050 F41.1 Addiction 41696663 R46.8 1 Elevated blood-pressure reading without diagnosis of hypertension 046855434 R03.0 Mild inter mittent asthma 755668503 J45.20 Morbid obesity 120403162 E66.01 [id number] Giorgio Machado MD Main Office [address] [address] [place] [address] 12/28/2020 10:59:55 12/28/2020 14:58:13 Cervical radiculopathy 07774729 M54.12 Urinary incontinence 165 695557 R32 Medial epicondylitis 532 20298 M77.01 [id number] Ana Maria Gallego Main Office [address] [address] [place] [address] 01/09/2021 15:56:27 01/10/2021 09:57:35 Paroxysmal atrial fibrillation 902098438 I48.0 Body mass index 40+ - severely obese 728150388 E66.01 Z68.41 Generalize d anxiety disorder 65457507 F41.1 [id number] Ana Maria Gallego Main Office [address] [place] [address] [place] [address] 01/25/2021 14:49:47 01/25/2021 16:14:43 Cervical radiculitis 24988532 M54.12 Cervical radiculopathy 82023750 M54.12 Acute thor acic back pain 757265682 M54.6 Body mass index 40+ - severely obese 435844958 E66.01 Z68.41 [id number] [facility] [address] [address] [place] [address] 02/13/2021 08:33:32 02/13/2021 14:20:43 Tendinitis of right elbow 4969778012 0384235 M67.823 Pain of le ft shoulder blade 635317847 M25.512 Pain of le ft shoulder joint 2003688785 7413969 M25.512 [id number] Ana Maria Gallego Main Office [address] [address] [place] [address] 06/23/2021 13:56:44 06/23/2021 15:13:56 Adult health examination 405526614 Z00.00 Generalize d anxiety disorder 33369932 F41.1 Paroxysmal atrial fibrillation 471056232 I48.0 Mild inter mittent asthma 534191881 J45.20 Morbid obesity 781293279 E66.01 Screening for malignant neoplasm of breast 765090864 Z12.39 [id number] Omayra fergusonenzo Main Office [address] [facility] [address] [place] [address] 12/13/2021 07:41:49 12/13/2021 11:53:08 [id number] [facility] [address] [address] [place] [address] 04/08/2022 15:01:10 04/09/2022 10:56:34 Pain in right arm 796668657 M79.601 [id number] Mary Becerra MA Main Office [address] [address] [place] [address] 04/18/2022 14:48:18 04/18/2022 16:00:22 Cervical radiculitis 65960894 M54.12 Paroxysmal atrial fibrillation 599757198 I48.0 [id number] Hollie Aguayo Main Office [address] [address] [place] [address] 06/20/2022 13:57:16 06/20/2022 15:17:51 Adult health examination 678473727 Z00.00 Generalize d anxiety disorder 28427039 F41.1 Paroxysmal atrial fibrillation 329426348 I48.0 Mild inter mittent asthma 625295366 J45.20 Morbid obesity 832769374 E66.01 Screening for malignant neoplasm of breast 164747728 Z12.39 Body mass index 40+ - severely obese 998609314 Z68.43 [id number] Cabrera Mondragon PA-C Main Office [address] [facility] [address] [place] [address] 09/26/2022 15:38:56 09/26/2022 16:43:10 Mild intermittent asthma 489457989 J45.20 Paroxysmal atrial fibrillation 296306616 I48.0 Obstructiv e sleep apnea syndrome 57538080 G47.33 Dyspnea 463784750 R06.00 Impaired f asting glycemia 295810935 R73.01 Fatigue 92161465 R53.83 Pain of le ft hip joint 0201568553 25167 M25.552 [id number] Cabrera Mondragon [facility] [address] [address] [place] [address] 12/04/2022 08:29:26 12/04/2022 10:25:23 Cough 04754358 R05.9 Acute sinusitis 45694328 J01.90 Acute conjunctivitis 537 42125 H10.33 [id number] Cabrera Mondragon PA[facility] [address] [address] [place] [address] 01/08/2023 15:46:57 01/08/2023 16:25:29 Urinary tract infectious disease 23926831 N39.0 Seasonal a llergic rhinitis 254590668 J30.2 [id number] Cabrera Mondragon PA-C Main Office [address] [address] [place] [address] 04/17/2023 15:26:53 04/17/2023 16:56:58 Lateral epicondylitis of left humerus 9889785372 10011 M77.12 Skin lesion 94189072 L98 .9 Pain in both feet 444605 1110 4636720 M79.671 [id number] Bela Mondragon PA-C Main Office [address] [address] [place] [address] 04/19/2023 13:10:00 04/19/2023 13:40:50 Abdominal pain 11530416 R10.9 [id number] Lena Cifuentes LPN Main Office [address] [address] [place] [address] 04/26/2023 10:09:45 05/10/2023 16:14:02 [id number] Lan Oliver MD Main Office [address] [address] [place] [address] 07/24/2023 14:43:32 07/24/2023 15:27:47 Cough 62183483 R05.9 Acute sinusitis 88982667 J01.90 Mild inter mittent asthma 009311974 J45.20 Health Concerns Section Related Observation LastModified by Organization Detai ls LastModified Time None Recorded Concern Status LastModified by Organization Details LastModified Time None Recorded Advance Directives Directive N: Payers Encounter Date Sequence Insurance Name Policy Number Policy Pollard Covered Member ID Pollard Member ID Guarantor Name 01/08/2023 1 [facility] - DIRECT CONNECTORC[employer] TYPE I (HMO) [id number] Steph Neal [id number] 1 Steph Neal 04/17/2023 1 [facility] CONNECTORCARE TYPE I (HMO) [id number] Steph M Ángel [id number] 1 Steph Neal 04/19/2023 1 [facility] CONNECTORCARE TYPE I (HMO) [id number] Steph M Ángel [id number] 1 Steph Neal 04/26/2023 1 [facility] CONNECTORCARE TYPE I (HMO) [id number] Steph M Ángel [id number] 1 Steph Neal 07/24/2023 1 [facility] CONNECTORCARE TYPE I (HMO) [id number] Steph Wisdom Ángel [id number] 1 Steph Neal Notes Date Note Type Note Provider Name and Address Organization Details Recorded Time 01/08/2023 text/html Patient has been having urinary Pressure and frequency . Patient has noticed spasms after urinating since Saturday. no f/c, hematuria Cabrera Mondragon PA-C [address], [place], [address], [facility] 01/08/2023 16:19:43 04/17/2023 text/html pt had B foot pa in x few wks, up until recently - now resolvedcurr c/o L elbow painno trauma to feet or LUEdoes sleep c L wrist flexed occ.also c/o lesion on her back - boyfriend is concerned, no pus dc, no f/c Cabrera Mondragon PA-C [address], [place], [address], [facility] 04/20/2023 13:37:29 04/19/2023 text/html 47 year old fema le c/o acute R. mid to lower abdominal pain started yesterday morning and gradually worsened in severity. Non radiating, no nausea. NO fever, chills. NO prior h/o similar pain, renal calculi. Urine with hemolyzed trace of blood and ketones. Bela Mondragon PA-C [address], [place], [address], [facility] 04/19/2023 14:39:26 04/26/2023 text/html Hospitalization Contact RecordReported bypatient.Follow UpHospital: [facility]; admit date: (Please enter in format 'MM/DD/YYYY') (04/19/2023); date of discharge: (Please enter in format 'MM/DD/YYYY') (04/23/2023); date of contact: (Please enter in format 'MM/DD/YYYY') (04/26/2023)Notes:[facility] covered inpatient stay? noTOC with in 48 working hours? yes HCP on file? yesMOLST on file? noDischarge Summary available? yes Pt presented [place] [facility] on 04/19/23 due to 2.5 days of worsening RLQ pain. CT scan demonstrated findings consistent with acute appendicitis. She was admitted to surgical service, and chose to proceed with laproscopic appendectomy/possible open. On 04/20/23, performed a laproscopic appendectomy without complication. Pt was then admitted post-op for observation and IV abx. Uncomplicated recovery course. Pt was d/c home on 04/23/23 in stable condition on PO Augmentin. appt in [address] Duggan. Discharge dx acute perforated appendicitis. Rx for Augmentin BID x 10 days and Tramadol 100 mg every 4 hrs prn pain (30 tabs). ANJU Sewell, [facility] 05/10/2023 16:14:01 07/24/2023 text/html Sinusitis/Allerg yRepor power bypatient.[facility]; [facility] Associated Symptoms:no fever; no nausea or vomiting; no sore throat;headache;facial pain bilaterally;sinus pain cheek Quality:congested;colo red phlegm;productive cough Context:recent sick contacts Alleviating factors:relief with hot showers/steam Prior Treatmenttopical decongestant Steph presents for possible sinus infection. Reports that she had a cough about x4 weeks ago that subsided after a week. Then symptoms of head pressure, nasal congestion, post nasal drip, and runny nose have been ongoing x3 weeks. Recent sore throat from post nasal drip. Has taken OTC nasal decongestant with minimal relief. Pt denies of any fever, chills, fatigue, sob, or chest pain. 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 Requests RSV + flu testing. Home covid test is negative. Lan Oliver MD [address] [address], [place], [address], [facility] 07/30/2023 09:10:02 OBGyn Episode No OBEpisode recorded.
== END 2024-08-03 15:25 | disposition home or self-care (01) ==
PROVIDERS: PCP Internal Medicine; Visit Provider Orthopaedic Surgery
DX: M23.306 Other meniscus derangements, unspecified meniscus, right knee (principal)
CPT/HCPCS: 99214

== ENCOUNTER → 2024-08-03 14:59 | Outpatient (BNVA) | payer OTHER, SELFPAY | PROVIDERS: PCP Internal Medicine; Visit Provider Orthopaedic Surgery | DX: M23.306 Other meniscus derangements, unspecified meniscus, right knee (principal) | CPT/HCPCS: 99212 ==

== ENCOUNTER 2024-08-11 15:29 | Outpatient (REF) | payer OTHER, SELFPAY ==
[2024-08-11 17:46] LABS: Alanine Aminotransferase 29 U/L (0-31); Alkaline Phosphatase 60 U/L (39-117); Anion Gap 7 (12-20); Aspartate Amino Transferase 19 U/L (5-31); Bilirubin Total 0.5 mg/dL (0.0-1.0); Blood Urea Nitrogen 15 mg/dL (9-16); Calcium 8.8 mg/dL (8.4-10.2); Carbon Dioxide 27 mmol/L (22-29); Chloride 109 mmol/L (96-108); Estimated Glomerular Filt Rate > 60; Glucose Random 84 mg/dL (60-115); Potassium 4.2 mmol/L (3.3-5.1); Sodium 139 mmol/L (135-145)
== END 2024-08-11 15:30 | disposition home or self-care (01) ==
LOC: HO.LAB 15:29
DX: Z00.00 Encounter for general adult medical examination without abnormal findings (principal); M23.306 Other meniscus derangements, unspecified meniscus, right knee; E78.00 Pure hypercholesterolemia, unspecified; G47.33 Obstructive sleep apnea (adult) (pediatric); E66.01 Morbid (severe) obesity due to excess calories; Z68.42 Body mass index [BMI] 45.0-49.9, adult; J45.909 Unspecified asthma, uncomplicated; I48.0 Paroxysmal atrial fibrillation; F33.1 Major depressive disorder, recurrent, moderate; Z79.01 Long term (current) use of anticoagulants
CPT/HCPCS: 36415; 80053; 99396

== ENCOUNTER 2024-08-11 15:29 | Outpatient (AMB) | payer OTHER, SELFPAY ==
--- OUTSIDE RECORDS SUMMARY | 2024-08-11 15:32 | XMS_ITS | Data Portability ---
Author Organization [place] - [facility], Allergy Address [address] [place] [id number] Assessment Encounter Date Assessment Date Assessment LastModified [...] Recorded Time Impacted cerumen in right ear 51846601835 82988 Active 2016 Impacted cerumen, right ear; Note: Date Diagnosed : 10/31/2016 4:26 PM (H61.21) Not Available [facility] 4 02:25:57 Acute tonsillit is 29207317 Active 2016 Acute tonsillit is, unspecifi ed; Note: Date Diagnosed : 10/31/2016 4:28 PM (J03.90) Not Available [facility] 4 02:26:11 Otalgia of right ear 9950162086 Active 2016 Otalgia, right ear; Note: Date Diagnosed : 10/31/2016 4:26 PM (H92.01) Not Available [facility] 4 02:25:51 Snoring 69212654 Active 2023 MINNIE CHRIS MD [address] [place] [address], [facility] [place], [address] , [facility] - [facility] 4 15:20:59 Problem Notes None recorded. Procedures Surgical History Date Name Laterality Status Provider Name and Address Organization Details Recorded Time Appendectomy completed Mandi Sullivan - [facility] 04/17/2024 14:56:12 Imaging Results Imaging Date Name Status LastModified by [facility] Details LastModified Time 10/31/2023 sleep study, diagnostic (PROC) completed [email or web address] Information not available 04/17/2024 15:15:49 Procedure Notes None recorded. Medical Equipment None Reported. Allergies Allergen ID Allergen Name Allergen Category Reaction Reaction Severity Criticality Documentation Date Start Date Code Code System Note Provider Name and Address Organization Details Recorded Time 81333 clindamyc in hydrochlo ride medicatio n other Not available Not available 01/07/2024 38798 RxNorm React ion: unkno wn, unspe cifie d;; Not Available [facility] 4 00:55:38 Medications Name Sig Start Date Stop Date Status Note LastModified by Organization Details LastModified Time acetamino phen 325 mg tablet TAKE 2 TABLETS BY MOUTH EVERY 4 HOURS NEEDED FOR PAIN active Not Available Not Available No t Available clindamyc in HCl 300 mg capsule 11/01 completed Medicati on ID: [id number] D uration Value: 14 Brand Name: clindamy [...] Updated DateTime 04/17/2024 172.72 cm 50.9 kg/m2 327554.44 g Mandi Castro [place] - [facility] 04/17/2024 15:03:16 Social History Question Answer Notes LastModified by Organizat ion Details LastModified Time Tobacco Smoking Status Former Smoker Mandi deluna [place] - [facility] 04/17/2024 14:57:07 What Is Your Level Of Alcohol Consumption? Occasional Information not available 04/17/2024 Sex: Unknown Functional [...] Diagnosis/Indication Diagnosis SNOMED-CT Code Diagnosis ICD10 Code 61083 MINNIE CHRIS MD [facility] [address] [address] 04/17/2024 14:13:00 04/17/2024 15:22:11 Snoring 13946663 R06.83 Health Concerns Section Related Observation LastModified by Organization Detai ls LastModified Time None Recorded Concern Status LastModified by Organization Details LastModified Time None Recorded Advance Directives Directive None Recorded Payers Encounter Date Sequence Insurance Name Policy Number Policy Pollard Covered Member ID Pollard Member ID Guarantor Name 04/17/2024 1 [facility] [employer] [facility] [employer]PPO) [id number] Steph Neal [id number] Steph Neal Notes Date Note Type Note Provider Name and Address Organization Details Recorded Time 04/17/2024 text/html weight loss program /1/[address] [place] 46AHI 2.7 just started wegovy +snoringno hx of tonsil infections MINNIE CHRIS MD [address] [place] [address], [phone], [facility] - [facility] 04/17/2024 15:22:03 OBGyn Episode No OBEpisode recorded.
--- OUTSIDE RECORDS SUMMARY | 2024-08-11 15:32 | XMS_ITS | Data Portability ---
Author Organization [facility], Main Office Address [address] [facility] [address] [place] [address] Care Team Providers Care Social Service Coordinator Name Role Phone MINNIE CHRIS Medical Office Rep [facility] Sales Expert HODA RAHMAN Orthopedic Surgeon [facility] UROLOGY Urologist JESS DELA CRUZ Director Of Vital Statistics MOLLY LAM Primary Care Provider Assessment Encounter Date Assessment Date Assessment LastModified by Organization Details LastModified Time 01/08/2023 01/08/2023 This service was provided using telemedicine. Patient consented to video & audio visit Patient was located in the [facility]. Provider was located in the office. [...] DO Not Attach Compendium, Do Not Delete/merge, [id number] 3 14:39:10 rapid SARS CoV 2 Ag, QL IA, respir atory specim en 2022 023 In-Office Order, Internal Use Only DO Not Attach Compendium DO Not Attach Compendium, Do Not Delete/merge, [id number] 3 15:18:01 rapid flu (A+B) 2022 023 CARMELO In-Office Order, Internal Use Only DO Not Attach Compendium DO Not Attach Compendium, Do Not Delete/merge, [id number] 3 15:28:10 rsv (respi ratory syncyt ial virus) , rapid, soniya lagos al 2022 023 CARMELO In-Office Order, Internal Use Only DO Not Attach Compendium DO Not Attach Compendium, Do Not Delete/merge, [id number] 3 15:44:39 Referral dermat ologis t referr al 2022 023 [facility], [address], [address], [place], [address], 4 10:36:34 Procedures None record ed. Surgeries None record ed. Imaging None record ed. Medication Orders ciprof loxaci n [address] [facility] #[id number], [address] [place] [address], [id number], 3 15:55:22 Augmen tin 875 mg-125 mg tablet 2022 023 [facility] #72221, [address] [place] [address], [id number], 3 15:18:13 benzon atate 100 mg capsul e 2022 023 [facility] #26020, [address] [place], [place], [id number], 15:18:16 albute rol sulfat e HFA 90 mcg/ac tuatio n aeroso l inhale r 2022 023 CARMEL[facility]252, [address] [place], [place], [id number], 15:18:13 Patient TargetsNo targets recorded. Patient Instructions Encounter Date Encounter Id Patient Instructions Last Modified By Organization Details Last Modified Time 01/08/2023 [id number] Follow up if no improvement or if symptoms worsen. pmadden Not available 01/08/2023 16:19:02 04/17/2023 [id number] tennis elbow: care instructions pmadden Not available 04/17/2023 16:48:46 tennis elbow: exercises pmadden Not available 04/17/2023 16:48:47 Follow up if no improvement or if symptoms worsen. pmadden Not available 04/17/2023 16:53:08 04/26/2023 [id number] 05/07/23- message left at home number to return my call, offer a hospital follow up as well as Pt is also due for a physical. Lena [email or web address] Not available 05/07/2023 08:58:32 07/24/2023 [id number] Acute Sinusitis: Care Instructions Not available 07/24/2023 15:18:07 cough: care instructions Not available 07/24/2023 15:18:07 Reason for Referral Manager Photo Referral for S kin lesion Referring Physician: Cabrera Mondragon, Internal Medicine, Encounter Date: 04/17/2023 Results Created Date Observation Date Name Description Value Unit Range Abnormal Flag Note LastModifiedBy Organization Detail LastModifiedTime 04/19/2004/19/2023 urina lysis , dipst ick Leukocytes Negati ve Not Available In-Office Order Internal Use Only DO Not Attach Compendium DO Not Attach Compendium, Do Not Delete/merge, [id number] 04/19/2023 13:29:11 04/19/2004/19/2023 urina lysis , dipst [...] 04/19/2023 urina lysis , dipst ick Specific [place] 1.005 Not Available In-Off ice Order Internal [...] DO Not Attach Compendium, Do Not Delete/merge, [id number] 04/19/2023 13:29:11 04/19/20 23 04/19/2023 urina lysis , dipst ick Appearance Clear Not Available In-Offi ce Order Internal Use Only DO Not Attach Compendium DO Not Attach Compendium, Do Not Delete/merge, [id number] 04/19/2023 13:29:11 04/19/20 23 04/19/2023 urina lysis , dipst ick Color Yellow Not Available In-Office Order Internal Use Only DO Not Attach Compendium DO Not Attach Compendium, Do Not Delete/merge, [id number] 04/19/2023 13:29:11 07/24/20 23 07/24/2023 rsv (resp irato ry syncy tial virus ), rapid , nasop haryn geal RSV, RAPID negati ve Not Available In-Office Order Internal Use Only DO Not Attach Compendium DO Not Attach Compendium, Do Not Delete/merge, [id number] 07/24/2023 15:19:04 07/24/20 23 07/24/2023 rapid flu (A+B) Flu A negati ve Not Available In-Office Order Internal Use Only DO Not Attach Compendium DO Not Attach Compendium, Do Not Delete/merge, [id number] 07/24/2023 14:52:40 07/24/20 23 07/24/2023 rapid flu (A+B) Flu B negati ve Not Available In-Office Order Internal Use Only DO Not Attach Compendium DO Not Attach Compendium, Do Not Delete/merge, [id number] 07/24/2023 14:52:40 07/24/20 23 07/24/2023 rapid SARS CoV 2 Ag, QL IA, respi rator y speci men RAPID SARS COV 2 negati ve Not Available In-Office Order Internal Use Only DO Not Attach Compendium DO Not Attach Compendium, Do Not Delete/merge, [id number] 07/24/2023 14:52:37 05/21/2005/21/2023 upper endos copy proce dure (EGD) (PROC ) No observ ation record ed. [email or web address] [facility] (Medical Records) [address] [place], [address], 05/21/2023 11:11:15 05/22/20 23 05/21/2023 US, abdom en, compl ete No observ ation record ed. [email or web address] [facility] (Medical Records) [address] [place], [address], 05/22/2023 12:50:47 Result Notes None recorded. Problems Name Problem SNOMED Code Status Onset Date Resolution Date Notes Provider Name and Address Organization Details Recorded Time Inflamma tory disorder of extremit y 176113285 Completed 201103/09/2014 IMPRESSI ON: REVIEWED XRAY WITH ALPHONSE JOHNSON EXAM CONSISTE NT WITH ACHILLES TENDONIT IS, AND SWELLING NO MASS FELT; RECORDED 03/25/20 12 9:59AM BY ELIZABETH DRAKE MA, ANNOTATI ON/SAMINA Mondragon PA-C [address], [place], [address], [facility] [place] 6 12:28:32 Acute bronchit is [id number] Completed 201103/09/2014 RECORDED 03/25/20 12 9:59AM BY ELIZABETH DRAKE MA, ANNOTATI ON/ADDEN BAKARI Mondragon PA-C [address], [place], [address], [facility] [place] 6 12:28:31 Acute pharyngi tis [id number] Completed 201203/09/2014 IMPRESSI ON: + RAPID STREP, POSSIBLE RIGHT EARLY PERITONS ILLAR ABSCESS, TX WITH ABX/FLUI DS/NSAID S, IF WORSENIN G PAIN OR DIFFICUL TY SWALLOWI NG CALL OFFICE FOR ENT APPT.; RECORDED 12/16/19 13 10:04AM BY BARBARA ARTIS ON/ADDEN LUIS FERNANDO Jimenez, [facility] 6 15:19:04 Tobacco user [id number] Completed 201305/29/2014 RECORDED 01/17/20 14 10:42AM BY OMAYRA Saleem MD, OFFICE VISIT Bela Mondragon PA-C [address], [place], [address], [facility] 6 12:28:31 Patient status finding [id number] Completed 06/29/2016 LUIS FERNANDO Adams, [facility] 6 15:18:43 Backache 521031853 Completed 06/29/2016 LUIS FERNANDO Adams, [facility] 6 15:18:46 Urinary incontin ence 150433658 Active Bela Mondragon PA-C [address] [facility] [address], [place], [address], [facility] 6 12:28:32 Cough 76701493 Completed 201103/09/2014 RECORDED 03/25/20 12 9:58AM BY ELIZABETH DRAKE MA, ANNOTATI ON/ADDEN DUM LUIS FERNANDO Adams, [facility] 6 15:19:12 Degenera tion of interver tebral disc 61956722 Completed 201103/09/2014 RECORDED 03/25/20 12 9:59AM BY ELIZABETH DRAKE MA, ANNOTATI ON/ADDEN DUM Bela CHOE-C [address] [facility] [address], [place], [address], [facility] 6 12:28:32 Dizzines s and giddines s 598581594 Completed 201203/09/2014 IMPRESSI ON: NORMAL EXAM; RECORDED 09/01/19 13 1:16PM BY CHERIE HERRERA MA, ANNOTATI ON/ADDEN DUM Bela CHOE-C [address], [place], [address], [facility] 6 12:28:32 Edema 765129302 Completed 201103/09/2014 IMPRESSI ON: BILATERA L, LUNGS CLEAR, C/W DEPENDEN T EDEMA, HAS TAKEN HCTZ IN THE PAST WITH [facility]PR[facility] ENT, ALSO REVIEWED DIET/LEG ELEVATIO N/WEIGHT LOSS/COM PRESSION STOCKING S; RECORDED 06/12/20 12 9:04AM BY BARBARA ARTIS ON/ADDEN DUM Brenda green MA null, [facility] 6 15:18:56 Elevated blood-pr essure reading without diagnosi s of hyperten yue 621149389 Active Bela Mondragon PA-C [address] [facility] [address], [place], [address], [facility] 6 12:28:32 Adult health examinat ion Completed 201103/09/2014 IMPRESSI ON: PAP IS UTD, PT TO START EXERCISI NG; RECORDED 07/08/20 12 1:24PM BY BARBARA GUIDRY ON/ADDEN DUM Bela Mondragon PA-C [address] [facility] [address], [place], [address], [facility] 6 12:28:32 Pure hypercho lesterol emia 656289179 Completed 01/25/2017 Omayra garrett null, [facility] 7 14:59:23 Knee pain Completed 201203/09/2014 IMPRESSI ON: PT IN A MOMIN TO LEAVE SO DID NOT EXAMINE KNEES. WILL START WITH X-RAY SINCE MAY HAVE DJD. F/U WITH PCP FOR FURTHER ASSESSME NT. 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 SO IT COULD BE THIS.; RECORDED 05/09/20 13 10:00AM BY BARBARA GUIDRY ON/ADDEN DUM Omayra deluna, [facility] 9 15:55:45 Lipoma of skin and subcutan eous tissue (excludi ng face) 473210596 Completed 201103/09/2014 IMPRESSI ON: BACK; RECORDED 06/12/20 12 9:04AM BY BARBARA ARTIS ON/ADDEN DUM Bela Mondragon PA-C [address], [place], [address], [facility] 6 12:28:31 Low back pain 709610765 Completed 201203/09/2014 RECORDED 09/05/19 13 10:23AM BY CHERIE HERRERA MA, BARBARA ON/ADDEN DUM Bela Circlefive-C [address] [facility] [address], [place], [address], [facility] 6 12:28:32 Lumbar sprain 169669239 Completed 200903/09/2014 RECORDED 11/12/19 10 9:28AM BY BARBARA SWEENEY ON/ADDEN DUM Bela Circlefive-C [address] [facility] [address], [place], [address], [facility] 6 12:28:32 Recurren t major depressi ve episodes 158160900 Active Bela Circlefive-C [address] [facility] [address], [place], [address], [facility] 6 12:28:31 Malaise and fatigue 374864211 Completed 200903/09/2014 IMPRESSI ON: LONG TALK RE WEIGHT, ADDICTIV E EATING BEHAVIOR S, WILL OCNTINUE COUNSELI NG AND TRY TO INCREASE EXERCISE . SEES DR MORALES TOO. DOES NOT FEEL SHE NEEDS MEDS FOR DEPRESSI ON, FEELS WELL MOSTLY.; RECORDED 11/12/19 10 9:28AM BY BARBARA SWEENEY ON/ADDEN DUM Bela Circle[facility]-C [address] [facility] [address], [place], [address], [facility] 6 12:28:32 Administ ration of measles and mumps and rubella vaccine Completed 201103/09/2014 RESOLVED DATE: 06/13/20 12; IMPRESSI ON: NEG MUMPS TITER, NEEDS REVACCIN ATION; RECORDED 06/13/20 12 12:55PM BY OMAYRA Saleem MD, OFFICE VISIT Bela CHOE-C [address], [place], [address], [facility] 6 12:28:32 Nausea [id number] Completed 201103/09/2014 IMPRESSI ON: RULE OUT PREGNANC Y; RECORDED 07/08/20 12 1:24PM BY BARBARA GUIDRY ON/ADDEN DUM Bela CHOE-C [address] [facility] [address], [place], [address], [facility] 6 12:28:32 Neck pain 29596032 Completed 01/25/2017 Omayra garrett [facility] 7 14:59:05 Lymphedjodie nevarez 729098397 Completed 201103/09/2014 RECORDED 03/25/20 12 9:59AM BY ELIZABETH DRAKE MA, CHINTANATI ON/ADDEN DUM Bela CHOE-C [address], [place], [address], [facility] 6 12:28:31 Obesity 886587081 Completed 01/08/2020 Bela CHOE-C [address], [place], [address], [facility] 0 17:12:44 Osteoart hritis of knee 976271053 Active Bela CHOE-C [address], [place], [address], [facility] 6 12:28:32 Otalgia 57898775 Completed 201103/09/2014 RECORDED 03/25/20 12 9:59AM BY ELIZABETH DRAKE MA, BARBARA ON/ADDEN DUM Bela Circlefive-C [address] [facility] [address], [place], [address], [facility] 6 12:28:31 Synoviti s/tenosy novitis - hand 431675519 Completed 200903/09/2014 IMPRESSI ON: POSSIBLE CARPAL TUNNEL SYNDROME ; RECORDED 11/12/19 10 9:28AM BY BARBARA SWEENEY ON/ADDEN DUM Bela Circlefive-C [address] [facility] [address], [place], [address], [facility] 6 12:28:32 Joint pain in ankle and foot Completed 200903/09/2014 IMPRESSI ON: FXT FIBULA AND OTHER IN 01/01, STILL WITH AIN EXPECTED , TX WITH ULTRAM SINCE NO CONTRAIN DICATION S AND USE MOTRIN 800MG TID WITH FOOD; RECORDED 11/12/19 10 9:27AM BY BARBARA SWEENEY ON/ADDEN DUM Bela [facility]f CanyonC [address] [facility] [address], [place], [address], [facility] 6 12:28:32 Pain in thoracic spine 849414579 Completed 200903/09/2014 IMPRESSI ON: MUSCULAR , STRETCH; RECORDED 11/12/19 10 9:27AM BY BARBARA SWEENEY ON/ADDEN DUM Bela Novast PA-C [address] [facility] [address], [place], [address], [facility] 6 12:28:32 Skin sensatio n disturba tne 87259871 Completed 201103/09/2014 IMPRESSI ON: AT SITE OF PREVIOUS CONTUSIO N FROM ABOUT A MONTH AGO, WITHOUT PAIN OR WITHOUT SIGNS OF CELLULIT IS, FOR NOW WILL MONITOR; RECORDED 06/12/20 12 9:03AM BY BARBARA ARTIS ON/ADDEN DUM Bela Mondragon PA-C [address], [place], [address], [facility] 6 12:28:32 Immuniza tion refused Completed 201203/09/2014 RECORDED 05/09/20 13 10:00AM BY BARBARA GUIDRY ON/ADDEN DUM Bela Mondragon MT-C [address], [place], [address], [facility] 6 12:28:32 Plantar fascial fibromat osis 55145669 Completed 201103/09/2014 RECORDED 06/12/20 12 9:04AM BY BARBARA ARTIS ON/ADDEN DUM Bela Mondragon MT-C [address] [facility] [address], [place], [address], [facility] 6 12:28:32 Pyelonep hritis 20160120 Completed 201103/09/2014 IMPRESSI ON: SEE ABOVE, PT TO FINISH BACTRIM TO ER IF CANNOT TOLERATE PO WITH VOMITING OR FEELS DIZZY.., PT WILL CALL AND CHECK WITH MANUFACTURING CONTROLLER TOMORROW ABOUT MAKING SURE SENSITIV ITIES MATCH BACTRIM, FLUIDS REST; RECORDED 03/25/20 12 9:59AM BY ELIZABETH DRAKE MA, BARBARA ON/ADDEN DUM Bela Mondragon MT-C [address], [place], [address], [facility] 6 12:28:31 Hypertro phic conditio n of skin 29446713 Completed 201203/09/2014 IMPRESSI ON: AFTER WEIGHT LOSS. GETS INTERTRI GO FUNGAL INFECTIO NS DUE TO THIS; RECORDED 05/09/20 13 10:00AM BY BARBARA GUIDRY ON/ADDEN DUM Bela Mondragno PA-C [address] [facility] [address], [place], [address], [facility] 6 12:28:32 Influenz a vaccine needed [id number] 06 Completed 201103/09/2014 RECORDED 06/12/20 12 9:13AM BY PRATIBHA SILVEIRA, OFFICE VISIT Bela Mondragon PA-C [address] [facility] [address], [place], [address], [facility] 6 12:28:32 Pain in limb 18932427 Completed 201103/09/2014 IMPRESSI ON: PT TO SET UP APPT; RECORDED 03/25/20 12 9:59AM BY ELIZABETH DRAKE MA, ANNOTATI ON/ADDEN DUM Bela Mondragon PA-C [address] [facility] [address], [place], [address], [facility] 6 12:28:32 Inflamma tion of sacroili ac joint 02842041 Completed 201103/09/2014 IMPRESSI ON: RIGHT SIDED PAIN, CHANGE TO IBUPROFE N WITH FOOD AND TYLENOL WITH CODEINE AT NIGHT. PE 05/[address] UP PT HAS PAPERWOR K; RECORDED 07/08/20 12 1:24PM BY JULEE NESBITT I, BARBARA ON/ADDEN DUM Bela Mondragon PA-C [address] [facility] [address], [place], [address], [facility] 6 12:28:32 Morbid obesity 720940489 Active Bela Mondragon PA-C [address] [facility] [address], [place], [address], [facility] 6 12:28:31 Shoulder joint pain 211659398 Completed 201103/09/2014 IMPRESSI ON: SOUNDS LIKE BURSISIT PT TO SEE ALANNA Chavez [facility] FOR INJECTIO N; RECORDED 03/25/20 12 9:59AM BY ELIZABETH DRAKE MA, ANNOTATI ON/ADDEN DUM Bela MOCKC [address] [facility] [address], [place], [address], [facility] 6 12:28:32 Chronic sinusiti s 55882078 Completed 201103/09/2014 RECORDED 03/25/20 12 9:59AM BY ELIZABETH DRAKE MA, ANNOTATI ON/ADDEN DUM Bela Mondragon PA-C [address], [place], [address], [facility] 6 12:28:31 Administ ration of diphther ia and tetanus vaccine Completed 201103/09/2014 RECORDED 07/08/20 12 1:24PM BY JULEE NESBITT I, CHINTANATI ON/ADDEN DUM Bela Mondragon PA-C [address], [place], [address], [facility] 6 12:28:32 Urinary tract infectio us disease 78213404 Completed 200803/09/2014 RECORDED 12/07/19 09 8:54AM BY BRENDA STEINER MA, BARBARA ON/ADDEN DUM Bela Mondragon PA-C [address], [place], [address], [facility] 6 12:28:31 Wheezing 63087261 Completed 201103/09/2014 RECORDED 03/25/20 12 9:59AM BY ELIZABETH DRAKE MA, ANNOTATI ON/ADDEN DUM Bela Mondragon PA-C [address], [place], [address], [facility] 6 12:28:32 Inflamma tory disorder of extremit y 432342645 Completed 201104/05/2014 IMPRESSI ON: REVIEWED XRAY WITH ALPHONSE JOHNSON EXAM CONSISTE NT WITH ACHILLES TENDONIT IS, AND SWELLING NO MASS FELT; RECORDED 03/25/20 12 9:59AM BY ELIZABETH DRAKE MA, ANNOTATI ON/ADDEN DUM Bela Mondragon PA-C [address], [place], [address], [facility] 6 12:28:32 Acute bronchit is 96494892 Completed 201104/05/2014 RECORDED 03/25/20 12 9:59AM BY ELIZABETH DRAKE MA, BARBARA ON/ADDEN DUM Bela CHOE-C [address], [place], [address], [facility] 6 12:28:31 Acute pharyngi tis 691087470 Completed 201204/05/2014 IMPRESSI ON: + RAPID STREP, POSSIBLE RIGHT EARLY PERITONS ILLAR ABSCESS, TX WITH ABX/FLUI DS/NSAID S, IF WORSENIN G PAIN OR DIFFICUL TY SWALLOWI NG CALL OFFICE FOR ENT APPT.; RECORDED 12/16/19 13 10:04AM BY BARBARA ARTIS ON/ADDEN DUM Brenda green MA null, [facility] 6 15:19:04 Cough 34895079 Completed 201104/05/2014 RECORDED 03/25/20 12 9:58AM BY ELIZABETH DRAKE MA, ANNOTATI ON/ADDEN DUM Brenda green MA [facility], [facility] 6 15:19:12 Degenera tion of interver tebral disc 98533809 Completed 201104/05/2014 RECORDED 03/25/20 12 9:59AM BY ELIZABETH DRAKE MA, BARBARA ON/ADDEN DUM Bela CHOE-C [address], [place], [address], [facility] 6 12:28:32 Dizzines s and giddines s 675982001 Completed 201204/05/2014 IMPRESSI ON: NORMAL EXAM; RECORDED 09/01/19 13 1:16PM BY CHERIE HERRERA MA, BARBARA ON/ADDEN DUM Bela Mondragon PA-C [address], [place], [address], [facility] 6 12:28:32 Edema 474160424 Completed 201104/05/2014 IMPRESSI ON: BILATERA L, LUNGS CLEAR, C/W DEPENDEN T EDEMA, HAS TAKEN HCTZ IN THE PAST WITH [facility] ENT, ALSO REVIEWED DIET/LEG ELEVATIO N/WEIGHT LOSS/COM PRESSION STOCKING S; RECORDED 06/12/20 12 9:04AM BY BARBARA ARTIS ON/ADDEN DUM Brenda green MA null, [facility] 6 15:18:56 Adult health examinat ion Completed 201304/05/2014 IMPRESSI ON: PAP IS OVERDUE, PT WILL ARRANGE THIS, PT HAS AN IUD IN PLACE. PT WILL WORK ON DIET AND EXERCISE .; RECORDED 01/17/20 14 10:22AM BY BARBARA ARTIS ON/ADDEN DUM Bela CHOE-C [address], [place], [address], [facility] 6 12:28:32 Knee pain Completed 02/02/2019 [facility] [place] 9 15:55:45 Lipoma of skin and subcutan eous tissue (excludi ng face) 918842224 Completed 201104/05/2014 IMPRESSI ON: BACK; RECORDED 06/12/20 12 9:04AM BY BARBARA ARTIS ON/ADDEN DUM Bela MOCKC [address], [place], [address], [facility] 6 12:28:31 Low back pain 142903584 Completed 201204/05/2014 IMPRESSI ON: X 1 DAY, OCCURED WHILE BENDING OVER; RECORDED 09/05/19 13 10:23AM BY CHERIE HERRERA MA, BARBARA ON/ADDEN DUM Bela CHOE-C [address], [place], [address], [facility] 6 12:28:32 Lumbar sprain 932810166 Completed 200904/05/2014 RECORDED 11/12/19 10 9:28AM BY BARBARA SWEENEY ON/ADDEN DUM Bela Mondragon [facility] [address] [facility] [address], [place], [address], [facility] 6 12:28:32 Malaise and fatigue 934602227 Completed 200904/05/2014 IMPRESSI ON: LONG TALK RE WEIGHT, ADDICTIV E EATING BEHAVIOR S, WILL OCNTINUE COUNSELI NG AND TRY TO INCREASE EXERCISE . SEES DR MORALES TOO. DOES NOT FEEL SHE NEEDS MEDS FOR DEPRESSI ON, FEELS WELL MOSTLY.; RECORDED 11/12/19 10 9:28AM BY BARBARA SWEENEY ON/ADDEN DUM Bela [facility] [address] [facility] [address], [place], [address], [facility] 6 12:28:32 Administ ration of measles and mumps and rubella vaccine Completed 201104/05/2014 RESOLVED DATE: 06/13/20 12; IMPRESSI ON: NEG MUMPS TITER, NEEDS REVACCIN ATION; RECORDED 06/13/20 12 12:55PM BY OMAYRA Saleem MD, OFFICE VISIT Bela Mondragon [facility] [address] [facility] [address], [place], [address], [facility] 6 12:28:32 Nausea 821958660 Completed 201104/05/2014 IMPRESSI ON: RULE OUT PREGNANC Y; RECORDED 07/08/20 12 1:24PM BY BARBARA GUIDRY ON/ADDEN [facility] [address] [facility] [address], [place], [address], [facility] 6 12:28:32 [place] 771271360 Completed 201104/05/2014 RECORDED 03/25/20 12 9:59AM BY ELIZABETH DRAKE MA, CHINTANATI ON/ADDEN DUM Bela Mondragon PA-C [address], [place], [address], [facility] 6 12:28:31 Otalgia 87194843 Completed 201104/05/2014 RECORDED 03/25/20 12 9:59AM BY ELIZABETH DRAKE MA, ANNOTLUCIA ON/ADDEN DUM Bela Mondragon PA-C [address], [place], [address], [facility] 6 12:28:31 Synoviti s/tenosy novitis - hand 563834215 Completed 200904/05/2014 IMPRESSI ON: POSSIBLE CARPAL TUNNEL SYNDROME ; RECORDED 11/12/19 10 9:28AM BY BARBARA SWEENEY ON/ADDEN DUM Bela Mondragon PA-C [address], [place], [address], [facility] 6 12:28:32 Joint pain in ankle and foot Completed 200904/05/2014 IMPRESSI ON: FXT FIBULA AND OTHER IN 01/01, STILL WITH AIN EXPECTED , TX WITH ULTRAM SINCE NO CONTRAIN DICATION S AND USE MOTRIN 800MG TID WITH FOOD; RECORDED 11/12/19 10 9:27AM BY BARBARA SWEENEY ON/ADDEN DUM Bela Mondragon PA-C [address], [place], [address], [facility] 6 12:28:32 Pain in thoracic spine 166432893 Completed 200904/05/2014 IMPRESSI ON: MUSCULAR , STRETCH; RECORDED 11/12/19 10 9:27AM BY BARBARA SWEENEY ON/ADDEN DUM Bela Mondragon PA-C [address], [place], [address], [facility] 6 12:28:32 Skin sensatio n disturba nce 06899320 Completed 201104/05/2014 IMPRESSI ON: AT SITE OF PREVIOUS CONTUSIO N FROM ABOUT A MONTH AGO, WITHOUT PAIN OR WITHOUT SIGNS OF CELLULIT IS, FOR NOW WILL MONITOR; RECORDED 06/12/20 12 9:03AM BY BARBARA ARTIS ON/ADDEN DUM Bela Mondragon PA-C [address], [place], [address], [facility] 6 12:28:32 Knee pain Completed 201104/05/2014 RECORDED 03/25/20 12 9:59AM BY ELIZABETH DRAKE MA, BARBARA ON/ADDEN DUM Omayra garrett [facility] 9 15:55:45 Immuniza tion refused Completed 201204/05/2014 RECORDED 05/09/20 13 10:00AM BY BARBARA GUIDRY ON/ADDEN DUM Bela Novast PA-C [address], [place], [address], [facility] 6 12:28:32 Plantar fascial fibromat osis 78216687 Completed 201104/05/2014 RECORDED 06/12/20 12 9:04AM BY BARBARA ARTIS ON/ADDEN DUM Bela Mondragon PA-C [address], [place], [address], [facility] 6 12:28:32 Pyelonep hritis 22751703 Completed 201104/05/2014 IMPRESSI ON: SEE ABOVE, PT TO FINISH BACTRIM TO ER IF CANNOT TOLERATE PO WITH VOMITING OR FEELS DIZZY.., PT WILL CALL AND CHECK WITH MANUFACTURING CONTROLLER TOMORROW ABOUT MAKING SURE SENSITIV ITIES MATCH BACTRIM, FLUIDS REST; RECORDED 03/25/20 12 9:59AM BY ELIZABETH DRAKE MA, BARBARA ON/ADDEN DUM Bela Mondragon PA-C [address], [place], [address], [facility] 6 12:28:31 Hypertro phic conditio n of skin 40454900 Completed 201204/05/2014 IMPRESSI ON: AFTER WEIGHT LOSS. GETS INTERTRI GO FUNGAL INFECTIO NS DUE TO THIS; RECORDED 05/09/20 13 10:00AM BY BARBARA GUIDRY ON/ADDEN DUM Bela CHOE-C [address] [facility] [address], [place], [address], [facility] 6 12:28:32 Influenz a vaccine needed [id number] 06 Completed 201104/05/2014 RECORDED 06/12/20 12 9:13AM BY PRATIBHA SILVEIRA, OFFICE VISIT Bela CHOE-C [address] [facility] [address], [place], [address], [facility] 6 12:28:32 Pain in limb 18944553 Completed 201104/05/2014 IMPRESSI ON: PT TO SET UP APPT; RECORDED 03/25/20 12 9:59AM BY ELIZABETH DRAKE MA, BARBARA ON/ADDEN DUM Bela Mondragon PA-C [address] [facility] [address], [place], [address], [facility] 6 12:28:32 Inflamma tion of sacroili ac joint 05974507 Completed 201104/05/2014 IMPRESSI ON: RIGHT SIDED PAIN, CHANGE TO IBUPROFE N WITH FOOD AND TYLENOL WITH CODEINE AT NIGHT. PE 05/[address] UP PT HAS ANGEL K; RECORDED 07/08/20 12 1:24PM BY BARBARA GUIDRY ON/ADDEN DUM Bela MOCKC [address] [facility] [address], [place], [address], [facility] 6 12:28:32 Shoulder joint pain 653883737 Completed 201104/05/2014 IMPRESSI ON: SOUNDS LIKE BURSISIT PT TO SEE [facility]; RECORDED 03/25/20 12 9:59AM BY ELIZABETH DRAKE MA, BARBARA ON/ADDEN DUM Bela Mondragon PA-C [address], [place], [address], [facility] 6 12:28:32 Chronic sinusiti s 36263128 Completed 201104/05/2014 RECORDED 03/25/20 12 9:59AM BY ELIZABETH DRAKE MA, BARBARA ON/ADDEN DUM Ebla Mondragon PA-C [address] [facility] [address], [place], [address], [facility] 6 12:28:31 Administ ration of diphther ia and tetanus vaccine Completed 201104/05/2014 RECORDED 07/08/20 12 1:24PM BY BARBARA GUIDRY ON/ADDEN DUM Bela Mondragon PA-C [address] [facility] [address], [place], [address], [facility] 6 12:28:32 Urinary tract infectio us disease 32578548 Completed 200804/05/2014 RECORDED 12/07/19 09 8:54AM BY BRENDA STEINER MA, BARBARA ON/ADDEN DUM Bela Mondragon PA-C [address] [facility] [address], [place], [address], [facility] 6 12:28:32 Wheezing 27406139 Completed 201104/05/2014 RECORDED 03/25/20 12 9:59AM BY ELIZABETH DRAKE MA, BARBARA ON/ADDEN DUM Bela Mondragon PA-C [address] [facility] [address], [place], [address], [facility] 6 12:28:32 Dysuria 23429902 Completed 06/29/2016 Brenda green MA null, [facility] 6 15:19:10 Acute pharyngi tis 099359196 Completed 06/29/2016 LUIS FERNANDO Adams, [facility] 6 15:19:04 Acute vaginiti s 24993863 Completed 06/29/2016 LUIS FERNANDO Adams, [facility] 6 15:18:52 Cough 40263183 Completed 06/29/2016 LUIS FERNANDO Adams, [facility] 6 15:19:12 Palpitat ions 78211199 Completed 01/25/2017 Omayra deluna [facility] 7 14:59:02 Spasm of back muscles 451695172 Completed 01/25/2017 Omayra deluna [facility] 7 14:59:27 Atrial fibrilla tion 41317462 Completed 02/02/2019 Omayra deluna [facility] 9 15:56:00 Spinal stenosis in cervical region 37545524 Completed 11/30/2014 mri does not show this Bela CHOE-C [address], [place], [address], [facility] 6 12:28:32 Snoring 53357829 Completed 01/25/2017 Omayra deluna [facility] 7 14:58:59 Thyroid nodule 164960951 Active Bela Giancarlo CHOE-C [address], [place], [address], [facility] 6 12:28:31 Insomnia 892877801 Active Belajihan Mondragon PA-C [address], [place], [address], [facility] 6 12:28:31 Degenera tion of thoracic interver tebral disc 35729900 Active T1/T2 Bela CHOE-C [address], [place], [address], [facility] 6 12:28:32 Degenera tion of cervical interver tebral disc 92201773 Completed 01/25/2017 Omayra Curiel-Pamela deluna, [facility] 7 14:59:09 Edema 885235610 Completed 06/29/2016 Brenda green [place] null, [facility] 6 15:18:56 Rapid atrial fibrilla tion 199719004 Completed 01/27/2018 Omayra garrett null, [facility] 8 11:21:10 Paroxysm al atrial fibrilla tion 188851002 Active Omayra Curiel-Pamela [email or web address] null, [facility] 6 15:17:25 Panic disorder 041748104 Completed 02/02/2019 Omayra Curiel-Pamela marcelinonmarta deluna, [facility] 9 15:55:48 Patent foramen ovale 438875769 Active Omayra Curiel-D yonathanorenmarta null, [facility] 6 15:17:25 Joint pain 48952764 Completed 01/25/2017 Omayra garrett null, [facility] 7 14:59:13 Anxiety 26611634 Completed 01/08/2020 Bela Mondragon PA-C [address], [place], [address], [facility] 0 17:12:31 Asthma 790390478 Completed 201701/08/2020 Bela CHOE-Man [address], [place], [address], [facility] 0 17:12:58 Ex-smoke r 3293696 Active 2017 Brenda green MA null, [facility] 8 15:42:54 Small bowel obstruct ion 929929854 Active 2018 Brenda green [place] null, [facility] 9 09:46:54 Generali zed anxiety disorder 91348865 Active 2019 Bela Mondragon PA-C [address], [place], [address], [facility] 0 17:12:32 Mild intermit tent asthma 624377995 Active 2019 Bela Mondragon PA-C [address], [place], [address], [facility] 0 17:13:08 [place] [facility] of lower extremit y 829412713 Active 2019 Bela MOCKC [address], [place], [address], [facility] 0 17:13:31 Obstruct jefry sleep apnea syndrome 39340075 Active 2022 Cabrera Mondragon PA-C [address], [place], [address], [facility] 3 17:09:42 Pain of left hip joint 70687979622 9100 Active 2022 Cabrera Mondragon PA-C [address], [place], [address], [facility] 3 17:10:00 Lateral epicondy litis of left humerus 17658130693 9100 Active 2022 Cabrera Mondragon PA-C [address], [place], [address], [facility] 3 13:33:40 Problem Notes None recorded. Procedures Surgical History Date Name Laterality Status Provider Name and Address Organization Details Recorded Time 05/21/20 23 Endoscopic us exam esoph completed Leslie Alba [facility] 05/21/2023 11:10:55 04/20/20 23 laparoscopic appendectomy completed Leslie Alba [facility] 04/22/2023 10:12:44 04/20/20 23 Appendectomy completed Avelina Encinas RN [facility] 04/30/2023 10:29:16 04/19/20 23 Appendectomy completed Avelina Encinas RN [facility] 04/25/2023 09:55:00 11/24/19 22 cardioversion completed Avelina Encinas RN [facility] 11/27/2021 13:27:24 01/24/20 17 extraction of wisdom tooth completed Brenda zurita MA [facility] 01/12/2019 09:34:35 Mammogram screening completed Brenda zurita [facility] 06/29/2016 15:20:32 Colonoscopy completed Brenda zurita [facility] 06/29/2016 15:20:36 Imaging Results Imaging Date Name Status LastModified by Organiz ation Details LastModified Time 05/21/2023 upper endoscopy procedure (EGD) (PROC) completed [email or web address] [facility] (Medical Records) [address] [place], [address], 05/21/2023 11:11:15 05/21/2023 US, abdomen, complete completed [email or web address] [facility] (Medical Records) [address] [place], [address], 05/22/2023 12:50:47 Procedure Notes None recorded. Medical [...] RECORDED 11/12/19 10 9:32AM BY BARBARA SWEENEY ON/SAMINA VILLEGAS; Not Available Not Available Not [...] cm LUIS FERNANDO Goldstein [facility] 01/08/2023 15:48:36 Date Recorded Body height Body mass index (BMI) Body weight Heart rate Oxygen saturation Oxygen saturation in Arterial blood by Pulse oximetry Body temperature Systolic blood pressure Diastolic blood pressure Provider Name and Address Organization Details Last Updated DateTime 171.45 cm 50.2 kg/m2 133643. 52 g 60 /min 97 % 97 % 98.3 [degF] 138 mm[Hg] 87 mm[Hg] [facility] 15:[facility]22 Date Recorded Body height Body mass index (BMI) Body weight Heart rate Oxygen saturation Oxygen saturation in Arterial blood by Pulse oximetry Body temperature Systolic blood pressure Diastolic blood pressure Provider Name and Address Organization Details Last Updated DateTime 3 171.45 cm 49.2 kg/m2 855047. 97 g 94 /min 96 % 96 % 97.8 [degF] 113 mm[Hg] 80 mm[Hg] Isela Metz MA [facility] 3 13:21:43 Date Recorded Body height Body mass index (BMI) Body weight Heart rate Oxygen saturation Oxygen saturation in Arterial blood by Pulse oximetry Body temperature Systolic blood pressure Diastolic blood pressure Provider Name and Address Organization Details Last Updated DateTime 3 171.45 cm 48.1 kg/m2 268070. 82 g 68 /min 96 % 96 % 98.3 [degF] 160 mm[Hg] 98 mm[Hg] Isela Metz MA [facility] 3 14:57:00 Social History Question Answer Notes LastModified by Organizat ion Details LastModified Time Tobacco Smoking Status Former Smoker Cherie deluna [facility] 05/18/2014 10:29:49 Do You Have An Advance Directive? No [email or web address] Information not available 06/20/2022 What Is Your Level Of Alcohol Consumption? Occasional [email or web address] Information not available 12/29/2014 Is Blood Transfusion Acceptable In An Emergency? Yes [email or web address] Information not available 01/20/2016 What Is Your Level Of Caffeine Consumption? Occasional [email or web address] Information not available 12/29/2014 How Much Tobacco Do You Chew? None Information not available 06/29/2016 In The 14 Days Before Symptom Onset, Have You Had Close Contact With A Laboratory-confi rmed COVID-19 While That Case Was Ill? No [email or web address] Information not available 06/20/2022 In The 14 Days Before Symptom Onset, Have You Had Close Contact With A Person Who Is Under Investigation For COVID-19 While That Person Was Ill? No [email or web address] Information not available 06/20/2022 Have You Been To An Area Known To Be High Risk For COVID-19? No [email or web address] Information not available 06/20/2022 Are You Currently Employed? Yes [email or web address] Information not available 12/29/2014 What Type Of Diet Are You Following? REGULAR [email or web address] Information not available 12/29/2014 Which Illicit Or Recreational Drugs Have You Used? 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 With Others (Juan Carlos) And 2 Daughters [email or web address] Information not available 06/20/2022 Do You Take Precautions To Prevent Distracted Driving? Yes [email or web address] Information not available 01/20/2016 How Often Do You Need To Have Someone Help You When You Read Instructions, Pamphlets, Or Other Written Material From Your Doctor Or Pharmacy? Sometimes Information not available 01/20/2016 Have You Served [...] Of Your Most Recent Tobacco Screening? 06/20/2022 [email or web address] Information not available 06/20/2022 How Many Children Do You Have? 2 Adriana And Renee Information not available 03/27/2018 What Is Your Current Pack Years? 10packyears [email or web address] Information not available 06/20/2022 Do You Use Protection During Sex? No Information not available 06/29/2016 Seat Belts Used Routinely Yes [email or web address] Information not available 06/20/2022 Are You Sexually Active? Yes Information not available 06/29/2016 Smoke Alarm In Home Yes [email or web address] Information not available 06/20/2022 Are You Passively Exposed To Smoke? No Information not available 06/29/2016 General Stress Level Medium [email or web address] Information not available 06/20/2022 Do You Use Sunscreen Routinely? Yes [email or web address] Information not available 12/29/2014 How Many Years Have You Smoked Tobacco? 10 [email or web address] Information not available 12/29/2014 Do You Or Have You Ever Used Any Other Forms Of Tobacco Or Nicotine? No [email or web address] Information not available 06/20/2022 Sex: Unknown Functional Status Question Answer Note LastModified by Organizat ion Details LastModified Time Are you able to walk? YESWOREST [email or web address] Information not available 06/20/2022 Are you able to care for yourself? Yes [email or web address] Information not available 12/29/2014 What is your exercise level? Occasional [email or web address] Information not available 02/02/2019 Mental Status None recorded. Family History Relationship Description Onset Age of this Age Resolved Age Notes LastModified by Organization Details LastModified Time Father Alcohol abuse [email or web address] Not available 2019 15:29:15 Notes:Pt is adopted no FH kn own Medical History Condition Response Anxiety Disorder Y Eating Disorder Y Heart Problems Y Obesity Y Vision or Eye Problems [...] mL dose 02/28/2021 completed LUIS FERNANDO [facility] [place] 12/13/2021 11:25:33 COVID-19, mRNA, LNP-S, PF, 30 mcg/0.3 mL dose 03/21/2021 completed [facility] [place] [facility]/13/[facility]21 11:25:33 MMR 10/21/2002 completed Not Available [facility] 03/09/2014 14:00:38 Tdap 06/12/2012 completed Not Available [facility] 03/09/2014 14:00:38 MMR 06/12/2012 completed Not Available [facility] 03/09/2014 14:00:38 Past Encounters Encounter ID Performer Location Encounter Start Date Encounter Closed Date Diagnosis/Indication Diagnosis SNOMED-CT Code Diagnosis ICD10 Code 17386 autoEComm erce [id number] [facility] [place] [address] 11/13/2006 00:00:00 10051 autoEComm erce [address] [facility] [place] [address] 12/23/2006 00:00:00 [id number] autoEComm erce [address] [facility] [place] [address] 07/28/2007 00:00:00 [id number] autoEComm erce [address] [facility] [place] [address] 12/06/2008 00:00:00 [id number] autoEComm erce [address] [facility] [place] [address] 03/25/2009 00:00:00 [id number] autoEComm erce [address] [facility] [place] [address] 04/28/2009 00:00:00 [id number] autoEComm erce [address] [facility] [place] [address] 11/11/2009 00:00:00 [id number] autoEComm erce [address] [facility] [place] [address] 12/20/2009 00:00:00 [id number] autoEComm erce [address] [facility] [place] [address] 02/17/2010 00:00:[id number]Comm [address] [place] [address] 07/25/2010 00:00:00 [id number] autoEComm erce [address] [place] [address] 09/13/2010 00:00:00 [id number] autoEComm erce [address] [place] [address] 11/11/2010 00:00:00 [id number] autoEComm erce [address] [place] [address] 02/01/2011 00:00:00 [id number] autoEComm erce [address] [facility] [address] [place] [address] 02/05/2011 00:00:00 [id number] autoEComm erce [address] [facility] [place] [address] 02/06/2011 00:00:00 [id number] autoEComm erce [address] [facility] [place] [address] 02/15/2011 00:00:00 [id number] autoEComm erce [address] [facility] [address] [place] [address] 03/08/2011 00:00:00 [id number] autoEComm erce [address] [facility] [place] [address] 11/26/2011 00:00:00 [id number] autoEComm erce [address] [facility] [address] [place] [address] 11/30/2011 00:00:00 [id number] autoEComm erce [address] [facility] [place] [address] 01/09/2012 00:00:00 [id number] autoEComm erce [address] [facility] [address] [place] [address] 03/25/2012 00:00:00 [id number] autoEComm erce [address] [facility] [address] [place] [address] 06/12/2012 00:00:00 [id number] autoEComm erce [address] [facility] [place] [address] 07/08/2012 00:00:00 [id number] autoEComm erce [address] [facility] [address] [place] [address] 09/01/2012 00:00:00 [id number] autoEComm erce [address] [facility] [address] [place] [address] 09/05/2012 00:00:00 [id number] autoEComm erce [address] [facility] [place] [address] 10/16/2012 00:00:00 [id number] autoEComm erce [address] [facility] [address] [place] [address] 12/15/2012 00:00:00 [id number] autoEComm erce [address] [facility] [place] [address] 05/09/2013 00:00:00 [id number] autoEComm erce [address] [facility] [place] [address] 07/27/2013 00:00:00 [id number] autoEComm erce [address] [facility] [place] [address] 12/25/2013 00:00:00 [id number] autoEComm erce [address] [facility] [place] [address] 01/16/2014 00:00:00 [id number] Elizabeth Drake MA Main Office [address] [facility] [address] [place] [address] 05/18/2014 10:10:59 05/18/2014 10:49:51 Dysuria 65799917 Acute pharyngitis 877537 003 [id number] Pratibha Silveira MA Main Office [address] [facility] [address] [place] [address] 05/29/2014 11:51:21 05/29/2014 12:23:45 Cough 90917626 [id number] Main Office [address] [facility] [address] [place] [address] 06/08/2014 13:52:54 06/08/2014 14:36:30 Palpitations 44332519 [id number] Jena Dominique Main Office [address] [address] [place] [address] 09/20/2014 11:26:27 09/20/2014 11:45:06 Backache 682315262 [id number] William Johnson Main Office [address] [address] [place] [address] 11/08/2014 09:40:15 11/08/2014 10:41:46 Acute pharyngitis 784548294 Cough 19028256 [id number] Jena Dominique Main Office [address] [address] [place] [address] 11/17/2014 16:24:25 11/17/2014 17:32:05 Palpitations 72256091 Atrial fibrillation 4943 6004 Neck pain 75964536 [id number] Irina Ayush LUIS FERNANDO Main Office [address] [address] [place] [address] 11/23/2014 13:19:45 11/23/2014 14:23:50 Atrial fibrillation 10510400 Spinal guerrero nosis in cervical region 14637218 Snoring 25494378 Thyroid nodule 013868162 Insomnia 084774353 [id number] Main Office [address] [address] [place] [address] 12/13/2014 14:13:19 12/13/2014 14:49:18 Atrial fibrillation 42799351 Degenerati on of cervical intervertebral disc 98096183 Thyroid nodule 932656465 Edema 033507404 [id number] Omayra rush Main Office [address] [address] [place] [address] 12/29/2014 09:06:58 12/29/2014 10:00:23 Adult health examination 176374082 Degenerati on of cervical intervertebral disc 26532883 Atrial fibrillation 4943 6004 Thyroid nodule 020286184 Edema 313055331 [id number] Juan Diego Cali MD Main Office [address] [address] [place] [address] 08/03/2015 11:18:40 08/03/2015 11:44:57 Cough 68207808 R05 [id number] Omayra rush Main Office [address] [place] [address] 12/19/2015 09:57:59 12/19/2015 11:39:30 Palpitations 05075193 R00.2 Rapid atri al fibrillation 188984763 I48.91 [id number] Claire Quinonez Main Office [address] [place] [address] 12/21/2015 10:51:33 12/21/2015 11:58:58 Paroxysmal atrial fibrillation 673242366 I48.0 Panic disorder 369454726 F41.0 Snoring 14991700 R06.83 [id number] Hollie Aguayo Main Office [address] [place] [address] 01/02/2016 13:10:18 01/02/2016 14:49:25 Paroxysmal atrial fibrillation 032782030 I48.0 Edema 490528961 R60.9 Joint pain 55452262 M25. 50 Patent foramen ovale 204 534229 Q21.1 Anxiety 16788884 F41.9 [id number] [facility] Main Office [address] [place] [address] 01/20/2016 14:12:02 01/20/2016 15:11:46 Adult health examination 034231631 Z00.00 Screening for malignant neoplasm of breast 281844980 Z12.39 Patent foramen ovale 204 333319 Q21.1 Paroxysmal atrial fibrillation 127903900 I48.0 Edema 729490306 R60.9 [id number] [facility] Main Office [address] [place] [address] 06/06/2016 13:54:52 06/06/2016 14:26:07 Atrial fibrillation 25286653 I48.91 Acute pharyngitis 196204 003 J02.9 Cough 66049497 R05 [id number] Lan Oliver MD Main Office [address] [place] [address] 06/09/2016 10:25:58 06/09/2016 11:21:14 Cough variant asthma 710543309 J45.991 [id number] Omayrajodie Whyte heavener Main Office [address] [place] [address] 06/11/2016 10:46:37 06/11/2016 11:26:31 Asthmatic bronchitis 430909134 J45.909 [id number] Omayra Whyte adri Main Office [address] [facility] [address] [place] [address] 06/29/2016 15:09:06 06/29/2016 15:58:04 Acute bacterial bronchitis 222886517 J20.9 Elevated blood-pressure reading without diagnosis of hypertension 934611662 R03.0 [id number] Omayra fergusonenzo Main Office [address] [facility] [address] [place] [address] 07/30/2016 13:44:57 07/30/2016 14:59:36 Benign essential hypertension 5672032 I10 [id number] Omayra CurielMarta heavener Main Office [address] [address] [place] [address] 10/26/2016 14:44:08 10/26/2016 15:35:24 Acute pharyngitis 088224314 J02.9 Elevated blood-pressure reading without diagnosis of hypertension 977203451 R03.0 [id number] Juan Diego Cali MD Main Office [address] [facility] [address] [place] [address] 10/27/2016 10:46:26 10/27/2016 11:22:38 Acute pharyngitis 932733595 J02.9 Exudative pharyngitis 12 1819204 J02.9 [id number] Willy avina Main Office [address] [facility] [address] [place] [address] 10/30/2016 08:51:17 10/30/2016 09:54:13 Acute pharyngitis 296663808 J02.9 Dental abscess 753491958 K04.7 Peritonsillar abscess 15 305812 J36 Low back pain 022537037 M54.5 Impacted cerumen 5378242 6 H61.21 [id number] Omayra fergusonenzo Main Office [address] [address] [place] [address] 11/26/2016 08:54:30 11/26/2016 09:29:41 Amenorrhea 89502640 N91.2 Gastroesop hageal reflux disease 656811296 K21.9 Nausea 243608113 R11.0 Body mass index 40+ - severely obese 366366323 Z68.41 Obesity 051541113 E66.9 [id number] [facility] Main Office [address] [place] [address] 01/25/2017 14:31:24 01/25/2017 15:18:18 Adult health examination 552040974 Z00.00 Screening for malignant neoplasm of breast 957969657 Z12.39 Urinary incontinence 165 777195 R32 Morbid obesity 154892253 E66.01 Obesity 912498613 E66.9 Paroxysmal atrial fibrillation 831553108 I48.0 Pain in right knee 27250 43743 77003 M25.561 Sleep apnea 45272913 G47 .30 [id number] [facility] Main Office [address] [place] [address] [place] [address] 10/10/2017 15:31:26 10/10/2017 16:02:27 Wheezing 89573082 R06.2 Cough 67934109 R05 Acute bronchitis 1908647 2 J20.9 Pain in right knee 07914 68036 81749 M25.561 [id number] [facility] Main [address] [place] [address] 10/28/2017 15:53:21 10/28/2017 17:35:33 Cough 19784522 R05 Pain of right wrist 3169 162631 19544 M25.531 Allergic rhinitis 054897 04 J30.9 Asthma 302410358 J45.20 [id number] [facility] Main Office [address] [place] [address] [place] [address] 11/18/2017 13:44:44 11/18/2017 15:46:12 Cough 42576008 R05 Dyspnea 064750593 R06.00 Asthma 328160460 J45.20 Paroxysmal atrial fibrillation [id number] I48.0 Obstructiv e sleep apnea syndrome 77601047 G47.33 Seasonal a llergic rhinitis 525834763 J30.2 [id number] [facility] Main Office [address] [place] [address] [address] [place] [address] 01/27/2018 10:50:09 01/27/2018 11:48:58 Adult health examination 134070763 Z00.00 Screening for malignant neoplasm of breast 937722066 Z12.39 Lymphedema of lower extremity 893351698 I89.0 Asthma 079774079 J45.90 9 Body mass index 40+ - severely obese 515329803 E66.01 Z68.41 [id number] Omayra Pato adri Main Office [address] [address] [place] [address] 03/27/2018 11:24:04 03/27/2018 12:19:20 Lateral epicondylitis 268058514 M77.11 [id number] Juan Diego Cali MD Main Office [address] [address] [place] [address] 06/11/2018 09:23:10 06/11/2018 10:12:36 Body mass index 40+ - severely obese 592521113 Z68.42 Fatigue 82880304 R53.83 Anxiety 51752647 F41.9 Morbid obesity 224541168 E66.01 [id number] Omayra Pato adri Main Office [address] [address] [place] [address] 07/30/2018 10:40:47 07/30/2018 11:37:06 Acute asthma 101118079 J45.901 [id number] Ana Maria Gallego Main Office [address] [address] [place] [address] 01/12/2019 09:27:00 01/12/2019 10:40:07 Indigestion 749815705 K30 Pain in left knee 174275 9501 90430 M25.562 Diarrhea 37679232 R19.7 [id number] Omayra Pato adri Main Office [address] [address] [place] [address] 02/02/2019 15:28:28 02/02/2019 16:19:18 Adult health examination 271577729 Z00.00 Screening for malignant neoplasm of breast 562666734 Z12.39 Patent foramen ovale 204 046450 Q21.1 Paroxysmal atrial fibrillation 812252192 I48.0 Lymphedema of lower extremity 576950363 I89.0 Obstructiv e sleep apnea syndrome 59762990 G47.33 Body mass index 40+ - severely obese 226664664 E66.01 Z68.42 [id number] Cabrera Mondragon PA-C Main Office [address] [address] [place] [address] 04/07/2019 13:19:55 04/07/2019 14:23:48 Pain in left knee 9333067572 64583 M25.562 Gastroesop hageal reflux disease 615376571 K21.9 [id number] Omayra Pato rush Main Office [address] [address] [place] [address] 12/31/2019 13:03:19 12/31/2019 14:22:13 Asthma 728525319 J45.909 Urge incon tinence of urine 41704690 N39.41 Lymphedema of lower extremity 987113405 I89.0 [id number] Bela Mondragon PA-C [address] [address] [place] [address] 01/08/2020 15:07:08 01/11/2020 08:39:09 Indigestion 906653683 K30 Generalize d anxiety disorder 73145709 F41.1 Lymphedema of lower extremity 334498820 I89.0 [id number] Lan Oliver MD [facility] [address] [place] [address] [place] [address] 04/01/2020 07:58:50 04/01/2020 15:09:46 Abdominal pain 18566043 R10.9 [id number] Ana Maria Gallego [address] [address] [place] [address] 04/22/2020 06:41:45 04/24/2020 10:57:02 [id number] Ana Maria Gallego Main Office [address] [place] [address] [place] [address] 05/30/2020 15:06:28 05/30/2020 16:57:55 Adult health examination 725706494 Z00.00 Generalize d anxiety disorder 24360830 F41.1 Addiction 36087848 R46.8 1 Elevated blood-pressure reading without diagnosis of hypertension 118581569 R03.0 Mild inter mittent asthma 336018725 J45.20 Morbid obesity 727035853 E66.01 [id number] Giorgio Machado MD Main Office [address] [address] [place] [address] 12/28/2020 10:59:55 12/28/2020 14:58:13 Cervical radiculopathy 95865339 M54.12 Urinary incontinence 165 724718 R32 Medial epicondylitis 532 53064 M77.01 [id number] Ana Maria Gallego Main Office [address] [address] [place] [address] 01/09/2021 15:56:27 01/10/2021 09:57:35 Paroxysmal atrial fibrillation 915515523 I48.0 Body mass index 40+ - severely obese 333039911 E66.01 Z68.41 Generalize d anxiety disorder 53517449 F41.1 [id number] Ana Maria Gallego Main Office [address] [place] [address] [place] [address] 01/25/2021 14:49:47 01/25/2021 16:14:43 Cervical radiculitis 03189627 M54.12 Cervical radiculopathy 98077303 M54.12 Acute thor acic back pain 094724607 M54.6 Body mass index 40+ - severely obese 831585276 E66.01 Z68.41 [id number] [facility] [address] [address] [place] [address] 02/13/2021 08:33:32 02/13/2021 14:20:43 Tendinitis of right elbow 8632682337 5679283 M67.823 Pain of le ft shoulder blade 330362618 M25.512 Pain of le ft shoulder joint 9948066898 5428899 M25.512 [id number] Ana Maria Gallego Main Office [address] [address] [place] [address] 06/23/2021 13:56:44 06/23/2021 15:13:56 Adult health examination 966614519 Z00.00 Generalize d anxiety disorder 31094791 F41.1 Paroxysmal atrial fibrillation 664178358 I48.0 Mild inter mittent asthma 251268228 J45.20 Morbid obesity 621028651 E66.01 Screening for malignant neoplasm of breast 204938759 Z12.39 [id number] Omayra fergusonenzo Main Office [address] [facility] [address] [place] [address] 12/13/2021 07:41:49 12/13/2021 11:53:08 [id number] [facility] [address] [address] [place] [address] 04/08/2022 15:01:10 04/09/2022 10:56:34 Pain in right arm 129843149 M79.601 [id number] Mary Becerra MA Main Office [address] [address] [place] [address] 04/18/2022 14:48:18 04/18/2022 16:00:22 Cervical radiculitis 12314256 M54.12 Paroxysmal atrial fibrillation 796243351 I48.0 [id number] Hollie Aguayo Main Office [address] [address] [place] [address] 06/20/2022 13:57:16 06/20/2022 15:17:51 Adult health examination 359764810 Z00.00 Generalize d anxiety disorder 32869037 F41.1 Paroxysmal atrial fibrillation 283870920 I48.0 Mild inter mittent asthma 712046220 J45.20 Morbid obesity 621680688 E66.01 Screening for malignant neoplasm of breast 278774637 Z12.39 Body mass index 40+ - severely obese 487424496 Z68.43 [id number] Cabrera Mondragon PA-C Main Office [address] [facility] [address] [place] [address] 09/26/2022 15:38:56 09/26/2022 16:43:10 Mild intermittent asthma 819245487 J45.20 Paroxysmal atrial fibrillation 495303379 I48.0 Obstructiv e sleep apnea syndrome 96887564 G47.33 Dyspnea 725351749 R06.00 Impaired f asting glycemia 514526059 R73.01 Fatigue 53859065 R53.83 Pain of le ft hip joint 4713480628 23993 M25.552 [id number] Cabrera Mondragon PA-C [facility] [address] [address] [place] [address] 12/04/2022 08:29:26 12/04/2022 10:25:23 Cough 22714349 R05.9 Acute sinusitis 15587224 J01.90 Acute conjunctivitis 537 84784 H10.33 [id number] Cabrera Mondragon PA[facility]C [facility] [address] [address] [place] [address] 01/08/2023 15:46:57 01/08/2023 16:25:29 Urinary tract infectious disease 86761494 N39.0 Seasonal a llergic rhinitis 855164639 J30.2 [id number] Cabrera Mondragon PA-C Main Office [address] [address] [place] [address] 04/17/2023 15:26:53 04/17/2023 16:56:58 Lateral epicondylitis of left humerus 1569116471 09503 M77.12 Skin lesion 75975406 L98 .9 Pain in both feet 511089 2076 3345620 M79.671 [id number] Bela Mondragon PA-C Main Office [address] [address] [place] [address] 04/19/2023 13:10:00 04/19/2023 13:40:50 Abdominal pain 12254738 R10.9 [id number] Lena Cifuentes LPN Main Office [address] [address] [place] [address] 04/26/2023 10:09:45 05/10/2023 16:14:02 [id number] Lan Oliver MD Main Office [address] [address] [place] [address] 07/24/2023 14:43:32 07/24/2023 15:27:47 Cough 76560116 R05.9 Acute sinusitis 00839012 J01.90 Mild inter mittent asthma 374942701 J45.20 Health Concerns Section Related Observation LastModified by Organization Detai ls LastModified Time None Recorded Concern Status LastModified by Organization Details LastModified Time None Recorded Advance Directives Directive N: Payers Encounter Date Sequence Insurance Name Policy Number Policy Pollard Covered Member ID Pollard Member ID Guarantor Name 01/08/2023 1 [facility] - DIRECT CONNECTORCARE TYPE I (HMO) [id number] Steph Neal [id number] 1 Steph Neal 04/17/2023 1 [facility] - DIRECT CONNECTORCARE TYPE I (HMO) [id number] Steph M Ángel [id number] 1 Steph Neal 04/19/2023 1 [facility] - DIRECT CONNECTORCARE TYPE I (HMO) [id number] Steph M Ángel [id number] 1 Steph Neal 04/26/2023 1 [facility] - DIRECT CONNECTORCARE TYPE I (HMO) [id number] Steph M Ángel [id number] 1 Steph Neal 07/24/2023 1 [facility] - DIRECT CONNECTORCARE TYPE I (HMO) [id number] Steph Wisdom Ángel [id number] 1 Steph Neal Notes Date Note Type Note Provider Name and Address Organization Details Recorded Time 01/08/2023 text/html Patient has been having urinary Pressure and frequency . Patient has noticed spasms after urinating since Saturday. no f/c, hematuria Cabrera Mondragon PA-C [address] [facility] [address], [place], [address], [facility] 01/08/2023 16:19:43 04/17/2023 text/html pt had B foot pa in x few wks, up until recently - now resolvedcurr c/o L elbow painno trauma to feet or LUEdoes sleep c L wrist flexed occ.also c/o lesion on her back - boyfriend is concerned, no pus dc, no f/c Cabrera Mondragon PA-C [address], [place], [address], [facility] 04/20/2023 13:37:29 04/19/2023 text/html 47 year old fema le c/o acute R. mid to lower abdominal pain started yesterday morning and gradually worsened in severity. Non radiating, no nausea. NO fever, chills. NO prior h/o similar pain, renal calculi. Urine with hemolyzed trace of blood and ketones. Bela Mondragon PA-C [address] [facility], [place], [address], [facility] 04/19/2023 14:39:26 04/26/2023 text/html Hospitalization Contact RecordReported bypatient.Follow UpHospital: [facility]; admit date: (Please enter in format 'MM/DD/YYYY') (04/19/2023); date of discharge: (Please enter in format 'MM/DD/YYYY') (04/23/2023); date of contact: (Please enter in format 'MM/DD/YYYY') (04/26/2023)Notes:[facility] covered inpatient stay? noTOC with in 48 working hours? yes HCP on file? yesMOLST on file? noDischarge Summary available? yes Pt presented to [facility] ED on 04/19/23 due to 2.5 days [...] hrs prn pain (30 tabs). ANJU Sewell, [facility] 05/10/2023 16:14:01 07/24/2023 text/html Sinusitis/Allerg yRepor power bypatient.Location:[facility] Associated Symptoms:no fever; no nausea or vomiting; [...] sob, or chest pain. 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 Requests RSV + flu testing. Home covid test is negative. Lan Oliver MD [address] [address], [place], [address], [facility] 07/30/2023 09:10:02 OBGyn Episode No OBEpisode recorded.
--- NOTE | 2024-08-11 15:33 | MHC.PC.OV ---
Vital Signs 08/11/24 15:34 Height 5 ft 8 in Weight 321 lb 6 oz BMI 48.9 BP 134/70 Blood Pressure Location Lt brachial Position Sitting Pulse 83 Pulse Source Pulse Oximeter Pulse Oximetry (%) 98 Oxygen Delivery Method Room Air Intake Visit Reasons: pe Intake Note: Patient is here today for a physical. Pt decline flu shot today. Reinforcer Required: No Inbound Call Center Agent: Not Required per policy Accompanied by: Self / Same As Patient Allergies No Known Allergies [No Known Allergies*] Allergy (Verified 08/11/24 15:45) Medication List - Last Reconciled 08/11/24 by Caitlin Sousa PA-C acetaminophen (Tylenol) 650 mg (2 x 325 mg) PO Q4H PRN albuterol-budesonide 90-80 mcg/actuation 2 inhalations inhalation DAILY PRN apixaban (Eliquis) 5 mg PO BID benzonatate 100 mg PO BID PRN cyclobenzaprine 5 mg PO TID PRN flecainide 50 mg PO BID furosemide (Lasix) 20 mg PO DAILY PRN guaifenesin 200 mg PO QID levonorgestrel (Mirena) intrauterine metoprolol succinate ER 25 mg PO DAILY semaglutide (weight loss) (Wegovy) 1 mg (0.5 mL) subcut QWEEK Tobacco use date assessed: 08/11/24 Dental Screening Dental Screen Date: 04/15/24 HPI pe HPI Details 49-year-old female with past medical history of atrial fibrillation, asthma, morbid obesity, obstructive sleep apnea, depression coming to the office for annual exam.? In review of the notes patient was seen by [facility] 08/06/2024 for degenerative tear of the meniscus of the right knee consideration of surgery versus conservative management. And is following with next appointment scheduled for October. She does follow with a therapist regularly for depression and anxiety. Her mammograms up-to-date 04/2024. She has not been seen by Gynecology in several years and is not up-to-date on her Pap smears. She continues to decline a colonoscopy at this time. She does not have any acute concerns today. She does mentioned that with the Wegovy she finds that when she has large meals she will feel nauseous. [facility] Medical History Sleep apnea, obstructive Asthma Atrial fibrillation Surgical History History of appendectomy Family History Other Adopted Social History Household Members: Family Housing: Apartment Do you presently have visiting nurse or other home services: No Alcohol intake: current Alcohol intake frequency: holidays/special occasions only Comment: Socially Patient Tobacco Use Status: Former Tobacco user Cigarette Packs Per Day: 0.5 Years Smoked: 15 +/- e-Cigarette/Vaping Use: Never Used Second Hand Smoke Exposure: Yes service: No Current occupational status: employed 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 Cognitive needs: No Hearing needs: No Vision needs: No Questionnaire Thrive Questionnaire Date Thrive assessed: 04/15/24 I am a: Patient What is your living situation today?: I have a steady place to live Within the past 12 months, did the food you bought not last and you didn't have the money to get more?: Never true Within the past 12 months, did you worry whether your food would run out before you got money to buy more?: Never true Do you have trouble paying for medicines?: No Do you have trouble getting transportation to medical appointments?: No Do you have trouble paying your heating and electricity bill?: No Do you have trouble taking care of your child, family member or friend?: No Do you have trouble with day-to-day activities such as bathing, preparing meals, shopping, managing finances, etc.?: No Are you currently unemployed and looking for a job?: No Are you interested in more education?: No Please select the resources that you would like help with: None Currently or been in a relationship where the following occur: No concerns reported THRIVE Score: 0 ILDA-7 AMB Questionnaire ILDA-7 Date ILDA - 7 assessed: 04/15/24 Source: Developed by Drs. Ángel Faria, Estrella Jason, Carlos Manuel Henderson and colleagues, with an educational gabby from [employer]. Review of Systems Const Denies body aches, Denies fatigue, Denies fever(s), Denies frequent falls, Denies headache(s) and Denies weakness Eyes Reports no additional complaints and Denies change in vision ENT Denies dysphagia, Denies dizziness, Denies facial pain, Denies headache(s), Denies nasal congestion and Denies odynophagia Card Denies chest pain, Denies syncope, Denies irregular heart rhythm, Denies leg edema, Denies lightheadedness and Denies dyspnea Resp Denies cough and Denies dyspnea GI Denies constipation, Denies dysphagia, Denies dyspepsia, Denies diarrhea, Denies nausea, Denies odynophagia and Denies vomiting Denies urinary frequency, Denies dysuria, Denies urinary hesitancy and Denies urinary urgency Musc Denies back pain and Denies myalgias Skin/Breast Reports system reviewed and no additional complaints, except as documented Neuro Denies dizziness, Denies syncope, Denies frequent falls, Denies headache(s) and Denies weakness Psych Reports no additional complaints Endo Denies fatigue Physical exam (Primary Care) Vital Signs: Last Vital Signs Pulse 83 08/11/24 15:34 BP 134/70 08/11/24 15:34 Pulse Ox 98 08/11/24 15:34 Oxygen Delivery Method Room Air 08/11/24 15:34 BMI result Body Mass Index 48.9 Tobacco/Smoking Status: Tobacco use Status Tobacco use date assessed 08/11/24 08/11/24 15:39 Patient Tobacco Use Status Former Tobacco user 08/11/24 15:39 e-Cigarette/Vaping Use Never Used 08/11/24 15:39 Thrive Assessment: Date of Thrive Assessment Date Thrive assessed 04/15/24 08/11/24 15:39 Currently or been in a relationship where the following occur: No concerns reported Const General: cooperative, healthy appearing, comfortable and no acute distress Orientation/consciousness: patient oriented x3 HENMT Head: Yes normocephalic Ears: hearing grossly normal bilaterally, external ears normal, TM's normal bilaterally and EAC's normal General nose exam: Normal external nose present Face and sinus: Yes normal facial exam and Yes sinuses nontender Mouth: Normal oral and palatal mucosa present and tongue normal Throat: Yes posterior oropharynx normal Eyes General: appearance normal, both eyes and all related structures Conjunctivae: conjunctivae normal Pupils: Equal, round and reactive pupils present EOM: EOMs intact bilaterally and No Nystagmus present Neck Neck: Yes normal visual inspection, Yes full ROM and Yes no lymphadenopathy Chest Chest palpation & inspection: normal inspection of the chest Resp Effort & Inspection: normal respiratory effort Auscultation: clear to auscultation bilaterally, no crackles, no rales, no rhonchi, no wheezes and breath sounds present Cardio Rate: regular rate Rhythm: regular rhythm Peripheral pulses: radial pulses present and dorsalis pedis present GI Inspection: Yes normal to inspection and No Abdominal wall edema Palpation (GI): Soft to palpation, not firm and nontender Auscultation: normal bowel sounds Rectal Exam - Female: deferred General: Yes no CVA tenderness Back/Spine/Pelvis Back: no CVA tenderness Skin General skin exam: no rashes or lesions noted Neuro General: patient oriented x3 Cranial nerves: Yes Equal, round and reactive pupils present, Yes Midline tongue present, Yes Ability to bilaterally elevate shoulders present and No Nystagmus present Gait exam (Neuro): Normal gait present Extrem General: Yes normal to inspection, Yes full ROM, No no pedal edema and No edema Psych Speech and movement: Normal speech and movement present Affect: normal affect Insight: Good insight present (Psych) Judgement: Good judgement present (Psych) Coding Level of Care Code Est Pt Prev Care 40-64y(45149) Diagnoses Degenerative tear of meniscus of right knee M23.306 Hypercholesterolemia E78.00 Annual physical exam Z00.00 Sleep apnea, obstructive G47.33 Morbid obesity E66.01 Asthma J45.909 Atrial fibrillation I48.0 Atrial fibrillation type: paroxysmal Major depressive disorder, recurrent, moderate F33.1 Assessment & Plan Assessment & Plan (1) Degenerative tear of meniscus of right knee: Code(s): M23.306 - Other meniscus derangements, unspecified meniscus, right knee Category: Medical Plan: Continue to follow up with Orthopedics. Considering conservative versus surgical management of meniscus tear. (2) Hypercholesterolemia: Code(s): E78.00 - Pure hypercholesterolemia, unspecified Category: Medical Plan: Avoid foods that are high in cholesterol such as red meat, fried foods, eggs and baked goods. Triglyceride goal of less than 150 and LDL goal of less than 130. Not currently on medical management. Cholesterol at goal (3) Annual physical exam: Code(s): Z00.00 - Encounter for general adult medical examination without abnormal findings Category: Medical Plan: Patient is up-to-date on her mammogram last completed this year. Reminded patient about colonoscopy and annual Pap smears. She is not up-to-date on her tetanus vaccine however we are out of Tdap at this time and given her age and occupation would recommend having the tetanus with a pertussis. She will schedule another appointment once we get the vaccines in. Blood work is up-to-date and within normal limits. (4) Sleep apnea, obstructive: Comment: Does not wear CPAP Code(s): G47.33 - Obstructive sleep apnea (adult) (pediatric) Category: Medical Plan: Was not a candidate for CPAP advised positional therapy and weight loss. Has had conflicting evidence regarding true diagnosis of KELLY. (5) Morbid obesity: Code(s): E66.01 - Morbid (severe) obesity due to excess calories Category: Medical Plan: Healthy diet and regular exercise is encouraged. We will increase Wegovy to 1.7 mg. Reminded patient about blood work. (6) Asthma: Code(s): J45.909 - Unspecified asthma, uncomplicated Category: Medical Plan: Asthma currently controlled on present medications. Continue on inhalers. Avoid triggers such as allergies. (7) Atrial fibrillation: Comment: Code(s): I48.91 - Unspecified atrial fibrillation Category: Medical Qualifiers: Atrial fibrillation type: paroxysmal Qualified Code(s): I48.0 - Paroxysmal atrial fibrillation Plan: Patient currently on apixaban and flecainide continue to follow with Cardiology. (8) Major depressive disorder, recurrent, moderate: Code(s): F33.1 - Major depressive disorder, recurrent, moderate Category: Medical Plan: Currently following with a counselor and not on medical management. Plan This note was constructed using voice recognition software. While every effort has been made to ensure accuracy and waste recycler, still areas may have been included sometimes these areas may affect the content or meeting of the given symptoms. Total time spent caring for the patient today was 30 minutes. This includes time spent before the visit reviewing the chart, time spent during the visit, and time spent after the visit and documentation. Orders: Orders TDaP Immunization Today Z23 - Encounter for immunization Medications: New Boostrix Tdap (diphth,pertus(acell),tetanus) 0.5 mL IM ONCE 0.5 mL 0RF NS Z23 - Encounter for immunization semaglutide (weight loss) (Wegovy) administer weeks 13 through 16 of therapy 1.7 mg (0.75 mL) subcut QWEEK 3 mL 0RF Discontinued semaglutide (weight loss) (Wegovy) administer weeks 9 through 12 of therapy Discontinued Reason: Patient no longer taking 1 mg (0.5 mL) subcut QWEEK 2 mL 0RF
[2024-08-11 15:34] VITALS: BP 134/70; PULSE 83; O2SAT 98; BMI 48.9
== END 2024-08-11 16:12 | disposition home or self-care (01) ==
PROVIDERS: PCP Internal Medicine
DX: Z00.00 Encounter for general adult medical examination without abnormal findings (principal); E66.01 Morbid (severe) obesity due to excess calories; Z68.42 Body mass index [BMI] 45.0-49.9, adult; I48.0 Paroxysmal atrial fibrillation; F33.1 Major depressive disorder, recurrent, moderate; M23.306 Other meniscus derangements, unspecified meniscus, right knee; E78.00 Pure hypercholesterolemia, unspecified; G47.33 Obstructive sleep apnea (adult) (pediatric); J45.909 Unspecified asthma, uncomplicated

== ENCOUNTER 2024-09-24 15:00 | Outpatient (RCR) | payer OTHER, SELFPAY ==
--- NOTE | 2024-05-19 15:04 | MHC.PT.EP ---
[facility] [place] Office [place] [facility] [place] Office [address] [phone] F: [phone] F: [phone] F: [phone] F: [phone] Physical Therapy Plan of Care Date of Evaluation: 05/19/24 Date of Surgery: Diagnosis: R medial knee pain Assessment: Patient is a 49 year old R handed female who presents with s/s consistent with R medial knee pain. 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 Patient past medical history includes OA. Current impairments include pain, balance, ROM, strength, activity tolerance and functional mobility. Functional limitations include decreased ability to walk, stand, drive, transfer, squat, bend, and be on feet. Patient is motivated with good rehab potential. Skilled PT will address impairments and functional limitations in order to achieve goals. Frequency and Duration: The patient will be seen 2x/week for 5 weeks Short Term Goals: I with HEP - 2 weeks AROM 0-120 - 3 weeks Quad set normal - 3 weeks SLR without pain - 3 weeks Director Call Goals: LE strength 4+/5 grossly - 5 weeks LEFS 48/80 - 5 weeks Max pain 3/10 with daily routine - 5 weeks Able to walk 1 hour with max pain 2/10 - 5 weeks Treatment Plan: Modalities to reduce pain, spasms and effusion. Manual therapy to restore motion and function. Therapeutic exercise to improve strength and flexibility. Neuromuscular re-education for posture and balance. Therapeutic activities to return to functional activities of daily living. Electronically signed by: Catalino Armijo, PT Please sign and return to therapist. Thank you for your referral.
--- NOTE | 2024-11-18 10:36 | MHC.PT.DC ---
[facility] [place] Office [place] Office [place] Office [address] Alisa Abdul [address] [phone] F: [phone] F: [phone] F: [phone] F: [phone] Physical Therapy Discharge Report Diagnosis: R medial knee pain Date of Surgery: Date of Evaluation: 05/19/24 Date of Discharge: 10/09/24 Treatments to Date: 18 Cancellations to Date: No Shows to Date: Discharge Status: Independent with HEP Discharge Summary: 09/24; Pt wishes to come 1 x week to finish her 5 visits before her surgery to keep her in line with exs at home. Discussed importance of regular ex for her knee. 09/22; Pt exs modified due to back pain. 09/17; Pt feels exs loosen up the tightness for a period of time. 09/15; Pt prefers table exs vs standing exs. Pt tiarra all exs with c/o fatigue. only. 09/10; Pt only c/o pain with changing flexion to extension. N pain with SLR's, just fatigued. 09/08; Pt fatigued after exs. Pt knee flexion 115. Pt TTP post knee. Pt wishes to cont 2 x week x several weeks. 08/13; Pt had discussed joining a gym, which I encouraged to continue with to strengthening prior to surgery. 07/30; Pt wishes to cont with therapy. Pt prefers table exs . 07/28/24: pt progressing well with skilled PT. She is motivated and compliant - noting improved HEP compliance is still achievable. She has progressed towards or met all STG and LTG. She is I with HEP. AAROM flexion to 126, ext to 0. SLR without pain. Quad set normal. Strength is 4/5 flex and ext. LEFS is 38/80 while initial evaluation demonstrated a 24/80. She is able to stand for 20 minutes but then has to seek a seat or rest. She has improved on impairments and functional limitations but still has progress to pursue including strength and tolerance to standing activities such as walking. At this time, I would like to continue with skilled PT for 2x/week for 4 more weeks to pursue optimal progress on impairments and functional limitations. 07/21; Pt requested table exs, since WB increases knee pain and swelling. Pt has 2 remaining visits for PT. 07/09; Pt had increased sxs of med kneee pain from yesterday. Advised pt to call for MRI results. 07/07; Pt was able to ascend and descend stairs reciprocally and do SLR's without pain. 06/30/24: a significant amount of time was spent encouraging pt with rehab process. ROM is improving and discomfort is reducing. ' 06/23; Pt Had some pain with descending 2 inch step, but was able to perform 10 reps. NV cont with step and strength. 06/16; Pt c/o some pain with step ups. Pt able to do stairs reciprocally up, but not down due to pain. NV 2 inch step down with U.E supposrt as needed. 06/03; Pt DC step after 10 reps due to increase pain. Pt unable to perform SAQ. Progress as tiarra. 05/27; Pt tiarra exs fairly. Pt unable to perform SAQ. Pt sees MD. Progress as tiarra Patient is a 49 year old R handed female who presents with s/s consistent with R medial knee pain. 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 Patient past medical history includes OA. Current impairments include pain, balance, ROM, strength, activity tolerance and functional mobility. Functional limitations include decreased ability to walk, stand, drive, transfer, squat, bend, and be on feet. Patient is motivated with good rehab potential. Skilled PT will address impairments and functional limitations in order to achieve goals. Electronically signed by: Catalino Armijo, PT Please sign and return to therapist. Thank you for your referral.
== END 2024-11-18 10:36 | disposition home or self-care (01) ==
LOC: HO.PTCHIC 15:00
DX: M25.561 Pain in right knee (principal); M54.50 Low back pain, unspecified; G89.29 Other chronic pain
CPT/HCPCS: 97110; 97162; 97164

== ENCOUNTER 2024-10-26 14:47 | Outpatient (AMB) | payer OTHER, SELFPAY ==
--- NOTE | 2024-10-26 14:56 | A.OFFVIS_ITS ---
Vital Signs 10/26/24 14:58 Height 5 ft 8 in Weight 324 lb 1.272 oz BMI 49.3 BP 130/64 Blood Pressure Location Lt brachial Position Sitting Pulse 73 Pulse Source Monitor Intake Visit Reasons: 3 mth/Rt Knee Arthroscopy on 11/04/24 clearance Intake Note: 3 mth f/up- RT Arthroscopic 11/04 clearance Sheltered Workshop Worker Required: No Accompanied by: Self / Same As Patient Allergies No Known Allergies [No Known Allergies*] Allergy (Verified 08/11/24 15:45) Medication List - Last Reconciled 10/26/24 by Fly Noguera MD acetaminophen (Tylenol) 650 mg (2 x 325 mg) PO Q4H PRN albuterol-budesonide 90-80 mcg/actuation 2 inhalations inhalation DAILY PRN apixaban (Eliquis) 5 mg PO BID benzonatate 100 mg PO BID PRN cyclobenzaprine 5 mg PO TID PRN flecainide 50 mg PO BID furosemide (Lasix) 20 mg PO DAILY PRN levonorgestrel (Mirena) intrauterine metoprolol succinate ER 25 mg PO DAILY semaglutide (weight loss) (Wegovy) 2.4 mg (0.75 mL) subcut QWEEK HPI Comments Details: Pleasant 49-year-old female with paroxysmal atrial fibrillation. She underwent cardioversion and was started on flecainide and metoprolol along with Eliquis. She is on anticoagulation with Eliquis. She is doing well. She is asking if she can be referred to weight management. 07/29/2023: She returns for follow-up. She has been sick with some sinus infection and is getting Augmentin currently. She has occasional palpitations when she drinks alcohol. Blood pressure is mildly elevated. She is saying she has not been using any decongestants. Currently pulse is regular and she is in sinus rhythm. 01/06/24: She is here for follow-up. She is denying significant symptoms and occasionally gets some palpitations. Overall stable with flecainide. Unfortunately she has hurt her back and is getting a lot of back spasms and is asking whether she can take any medications for that. 04/29/2024: She is here for follow-up. Occasionally gets palpitations after drinking alcohol. Otherwise clinically stable. She has started Wegovy for weight loss. 10/26/2024: She is here for follow-up. She had right knee injury and was told that she had meniscal tear. She is saying she is recovering but may need surgery. She is here for perioperative cardiovascular risk assessment. No chest pains or shortness of breath. No palpitations. Doing well with flecainide, metoprolol. She is on apixaban. [facility] Medical History Sleep apnea, obstructive Asthma Atrial fibrillation Surgical History History of appendectomy Family History Other Adopted Social History Household Members: Family Housing: Apartment Do you presently have visiting nurse or other home services: No Alcohol intake: current Alcohol intake frequency: holidays/special occasions only Comment: Socially Patient Tobacco Use Status: Former Tobacco user Cigarette Packs Per Day: 0.5 Years Smoked: 15 +/- e-Cigarette/Vaping Use: Never Used Second Hand Smoke Exposure: Yes service: No Current occupational status: employed 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 Cognitive needs: No Hearing needs: No Vision needs: No Review of Systems Const Denies chills, Denies fatigue, Denies fever(s), Denies frequent falls, Denies weakness, Denies weight gain and Denies weight loss ENT Denies dizziness Card Denies chest pain, Denies leg edema, Denies lightheadedness, Denies palpitations, Denies dyspnea and Denies dyspnea on exertion Resp Denies cough, Denies dyspnea and Denies dyspnea on exertion GI Denies hematochezia Musc Denies abnormal gait, Denies muscle weakness, Denies numbness, Denies radiating pain into limb and Denies tingling Neuro Denies abnormal gait, Denies dizziness, Denies frequent falls, Denies numbness, Denies tingling and Denies weakness Endo Denies fatigue and Denies palpitations Physical Exam Vital Signs: Last Vital Signs Pulse 73 10/26/24 14:58 BP 130/64 10/26/24 14:58 BMI result Body Mass Index 49.3 GENERAL APPEARANCE: in no acute distress, pleasant. NECK/THYROID: no carotid bruit, no jugular venous distention. SKIN: no suspicious lesions, warm and dry. HEART: no murmurs, regular rate and rhythm. LUNGS: clear to auscultation bilaterally. ABDOMEN: soft, nontender. EXTREMITIES: no edema. PERIPHERAL PULSES: equal. NEUROLOGIC: No gross deficits, AAO X 3 Office Procedures EKG Details: NSR 73/min, normal ECG, QTc 414 msec. 73819-[id number], Complete Assessment & Plan Assessment & Plan (1) Atrial fibrillation: Comment: Code(s): I48.91 - Unspecified atrial fibrillation Category: Medical Qualifiers: Atrial fibrillation type: paroxysmal Qualified Code(s): I48.0 - Paroxysmal atrial fibrillation Plan Pleasant 49 year female with morbid obesity and atrial fibrillation. She has been on flecainide and metoprolol. She is on apixaban for anticoagulation. She started Wegovy for weight loss. Overall clinically stable. Blood pressure is well controlled. She needs knee surgery. She is low to intermediate risk for surgery. Can hold Eliquis for 48 to 72 hours before surgery. Follow-up with us in 6 months. Thank you for allowing me to participate in the care of your patient. Please feel free to contact me if you have any questions. Medications: Refilled flecainide 50 mg PO BID 180 tabs 3RF I48.0 - Paroxysmal atrial fibrillation Coding Level of Care Code Est Pt Level 4 (46099) Diagnoses Atrial fibrillation I48.0 Atrial fibrillation type: paroxysmal CPT Codes EKG - CPT: 15463-Iexayzvgrurqfkssy, Complete ([id number])
[2024-10-26 14:58] VITALS: BP 130/64; PULSE 73; BMI 49.3
--- OUTSIDE RECORDS SUMMARY | 2024-10-26 17:35 | XMS_ITS | Data Portability ---
Author Organization [place] - [facility], Allergy Address [address] [place] [phone] Assessment Encounter Date Assessment Date Assessment LastModified [...] Abnormal Flag Note LastModifiedBy Organization Detail LastModifiedTime 04/15/20 24 10/31/2023 sleep study , diagn ostic (PROC ) No observ ation record ed. [email or web address] Not Available 2023 15:15:49 Result Notes None recorded. Problems Name Problem SNOMED Code Status Onset Date Resolution Date Notes Provider Name and Address Organization Details Recorded Time Impacted cerumen in right ear 72476894606 97941 Active 2016 Impacted cerumen, right ear; Note: Date Diagnosed : 10/31/2016 4:26 PM (H61.21) Not Available [facility] 4 02:25:57 Acute tonsillit is 52953726 Active 2016 Acute tonsillit is, unspecifi ed; Note: Date Diagnosed : 10/31/2016 4:28 PM (J03.90) [facility] Available [facility] 02:26:11 Otalgia of right ear 8420823226 Active 2016 Otalgia, right ear; Note: Date Diagnosed : 10/31/2016 4:26 PM (H92.01) Not Available [facility] 02:25:51 Snoring 15942777 Active 2023 MINNIE CHRIS MD [address] [place] [address], [place], [address] , [facility] - [facility] 4 15:20:59 Problem Notes None recorded. Procedures Surgical History Date Name Laterality Status Provider Name and Address Organization Details Recorded Time Appendectomy completed Mandi Sullivan - [facility] 04/17/2024 14:56:12 Imaging Results Imaging Date Name Status LastModified by [facility] Details LastModified Time 10/31/2023 sleep study, diagnostic (PROC) completed [email or web address] Information not available 04/17/2024 15:15:49 Procedure Notes None recorded. Medical Equipment None Reported. Allergies Allergen ID Allergen Name Allergen Category Reaction Reaction Severity Criticality Documentation Date Start Date Code Code System Note Provider Name and Address Organization Details Recorded Time 44295 clindamyc in hydrochlo ride medicatio n other Not available Not available 01/07/2024 45405 RxNorm React ion: unkno wn, unspe cifie d;; Not Available [facility] 4 00:55:38 Medications Name Sig Start Date Stop Date Status Note LastModified by Organization Details LastModified Time acetamino phen 325 mg tablet TAKE 2 TABLETS BY MOUTH EVERY 4 HOURS NEEDED FOR PAIN active Not Available Not Available No t Available clindamyc in HCl 300 mg capsule 11/01 completed Medicati on ID: [id number] D uration Value: 14 Brand Name: clindamy [...] Updated DateTime 04/17/2024 172.72 cm 50.9 kg/m2 554713.44 g Mandi Castro MA - [facility] 04/17/2024 15:03:16 Social History Question Answer Notes LastModified by Organizat ion Details LastModified Time Tobacco Smoking Status Former Smoker Mandi deluna MA - [facility] 04/17/2024 14:57:07 What Is Your Level Of Alcohol Consumption? Occasional Information not available 04/17/2024 Sex: Unknown Functional Status None recorded. Mental Status None recorded. Family History Nothing Reported. Medical History Condition Response Emphysema Y Depression Y Heart Problems Y Anxiety Y Asthma Y Gynecological HistoryNo gynecological history recorded. Obstetrics History GPAL:G 0 P 0 0 0 0 Past Encounters Encounter ID Performer Location Encounter Start Date Encounter Closed Date Diagnosis/Indication Diagnosis SNOMED-CT Code Diagnosis ICD10 Code Diagnosis Note [id number] MINNIE CHRIS MD [facility] [address] [phone] 04/17/2024 14:13:00 04/17/2024 15:22:11 Snoring 80950940 R06.83 Health Concerns Section Related Observation LastModified by Organization Detai ls LastModified Time None Recorded Concern Status LastModified by Organization Details LastModified Time None Recorded Advance Directives Directive None Recorded Payers Encounter Date Sequence Insurance Name Policy Number Policy Pollard Covered Member ID Pollard Member ID Guarantor Name 04/17/[address] [facility] PLAN - MULTIPLAN (PPO) [id number] Steph Neal [id number] Steph Neal Notes Date Note Type Note Provider Name and Address Organization Details Recorded Time 04/17/2024 text/html weight loss program ammewmur59/1/[address] [place] 46AHI 2.7 just started wegovy +snoringno hx of tonsil infections MINNIE CHRIS MD [address] [place] [address], [id number] - [facility] 04/17/2024 15:22:03 OBGyn Episode No OBEpisode recorded.
--- OUTSIDE RECORDS SUMMARY | 2024-10-26 17:36 | XMS_ITS | Data Portability ---
Author Organization [facility], Main Office Address [address] [facility] [address] [place] [address] Care Team Providers Care Credit And Collections Analyst Name Role Phone MINNIE CHRIS Organ Recovery Coordinator [facility] Process Project Engineer HODA RAHMAN Orthopedic Surgeon [facility] Urologist JESS DELA CRUZ Expander Machine Operator MOLLY LAM Primary Care Provider Assessment Encounter Date Assessment Date Assessment LastModified by Organization Details LastModified Time 01/08/2023 01/08/2023 This service was provided using telemedicine. Patient consented to video & audio visit Patient was located in the [facility]. Provider was located in the office. No [...] Time Details Appointments None record ed. Lab rapid SARS CoV 2 Ag, QL IA, respir atory specim en 2022 023 In-Office Order, Internal Use Only DO Not Attach Compendium DO Not Attach Compendium, Do Not Delete/merge, [id number] 3 15:18:01 rapid flu (A+B) 2022 023 CARMELO In-Office Order, Internal Use Only DO Not Attach Compendium DO Not Attach Compendium, Do Not Delete/merge, [id number] 3 15:28:10 rsv (respi ratory syncyt ial virus) , rapidsoniya al 2022 023 CARMELO In-Office Order, Internal Use Only DO Not Attach Compendium DO Not Attach Compendium, Do Not Delete/merge, [id number] 3 15:44:39 urinal ysis, dipsti ck 2022 023 [email or web address] In-Office Order, Internal Use Only DO Not Attach Compendium DO Not Attach Compendium, Do Not Delete/merge, [id number] 3 14:39:10 Referral dermat ologis t referr al 2022 023 [facility], [address], [address], [place], [address], 4 10:36:34 Procedures None record ed. Surgeries None record ed. Imaging None record ed. Medication Orders Crispin tin 875 mg-125 mg tablet 2022 023 [facility][id number], [address] [place], [id number], 3 15:18:13 benzon atate 100 mg capsul e 2022 023 [facility] #[id number], [address], [id number], 3 15:18:16 albute rol sulfat e HFA 90 mcg/ac tuatio n aeroso l inhale r 2022 023 [facility] #[id number], [address], [id number], 15:18:13 ciprof loxaci n 250 mg tablet 2022 [facility]23 [id number], [address] [facility], [place], [place], [phone], 15:55:22 Patient TargetsNo targets recorded. Patient Instructions Encounter Date Encounter Id Patient Instructions Last Modified By Organization Details Last Modified Time 01/08/2023 [id number] Follow up if no improvement or if symptoms worsen. [email or web address] Not available 01/08/2023 16:19:02 04/17/2023 [id number] tennis elbow: care instructions pmadden Not available 04/17/2023 16:48:46 tennis elbow: exercises pmadden Not available 04/17/2023 16:48:47 Follow up if no improvement or if symptoms worsen. pmadden Not available 04/17/2023 16:53:08 04/26/2023 [id number] 05/07/23- message left at home number to return my call, offer a hospital follow up as well as Pt is also due for a physical. 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 Referral for S kin lesion Referring Physician: Cabrera Mondragon, Internal Medicine, Encounter Date: 04/17/2023 Results Created Date Observation Date Name Description Value Unit Range Abnormal Flag Note LastModifiedBy Organization Detail LastModifiedTime 04/19/2004/19/2023 urina lysis , dipst ick Leukocytes Negati ve Not Available In-Office Order Internal Use Only DO Not Attach Compendium DO Not Attach Compendium, Do Not Delete/merge, [id number] 04/19/2023 13:29:11 04/19/2004/19/2023 urina lysis , dipst [...] 04/19/2023 urina lysis , dipst ick Specific Weston 1.005 Not Available In-Off ice Order Internal [...] DO Not Attach Compendium, Do Not Delete/merge, [id number] 04/19/2023 13:29:11 04/19/20 23 04/19/2023 urina lysis , dipst ick Appearance Clear Not Available In-Offi ce Order Internal Use Only DO Not Attach Compendium DO Not Attach Compendium, Do Not Delete/merge, [id number] 04/19/2023 13:29:11 04/19/20 23 04/19/2023 urina lysis , dipst ick Color Yellow Not Available In-Office Order Internal Use Only DO Not Attach Compendium DO Not Attach Compendium, Do Not Delete/merge, [id number] 04/19/2023 13:29:11 07/24/20 23 07/24/2023 rsv (resp irato ry syncy tial virus ), rapid , nasop haryn geal RSV, RAPID negati ve Not Available In-Office Order Internal Use Only DO Not Attach Compendium DO Not Attach Compendium, Do Not Delete/merge, [id number] 07/24/2023 15:19:04 07/24/20 23 07/24/2023 rapid flu (A+B) Flu A negati ve Not Available In-Office Order Internal Use Only DO Not Attach Compendium DO Not Attach Compendium, Do Not Delete/merge, [id number] 07/24/2023 14:52:40 07/24/20 23 07/24/2023 rapid flu (A+B) Flu B negati ve Not Available In-Office Order Internal Use Only DO Not Attach Compendium DO Not Attach Compendium, Do Not Delete/merge, [id number] 07/24/2023 14:52:40 07/24/20 23 07/24/2023 rapid SARS CoV 2 Ag, QL IA, respi rator y speci men RAPID SARS COV 2 negati ve Not Available In-Office Order Internal Use Only DO Not Attach Compendium DO Not Attach Compendium, Do Not Delete/merge, [id number] 07/24/2023 14:52:37 05/21/2005/21/2023 upper endos copy proce dure (EGD) (PROC ) No observ ation record ed. [email or web address] [facility] (Medical Records) [address] [place], [address], 05/21/2023 11:11:15 05/22/20 23 05/21/2023 US, abdom en, compl ete No observ ation record ed. [email or web address] [facility] (Medical Records) [address] [place], [address], 05/22/2023 12:50:47 Result Notes None recorded. Problems Name Problem SNOMED Code Status Onset Date Resolution Date Notes Provider Name and Address Organization Details Recorded Time Inflamma tory disorder of extremit y [id number] Completed 201103/09/2014 IMPRESSI ON: REVIEWED XRAY WITH ALPHONSE JOHNSON EXAM CONSISTE NT WITH ACHILLES TENDONIT IS, AND SWELLING NO MASS FELT; RECORDED 03/25/20 12 9:59AM BY ELIZABETH DRAKE MA, ANNOTATI ON/SAMINA Mondragon PA-C [address], [place], [address], [facility] [place] 6 12:28:32 Acute bronchit is [id number] Completed 201103/09/2014 RECORDED 03/25/20 12 9:59AM BY ELIZABETH DRAKE MA, ANNOTATI ON/ADDEN BAKARI Mondragon PA-C [address], [place], [address], [facility] [place] 6 12:28:31 Acute pharyngi tis [id number] Completed 201203/09/2014 IMPRESSI ON: + RAPID STREP, POSSIBLE RIGHT EARLY PERITONS ILLAR ABSCESS, TX WITH ABX/FLUI DS/NSAID S, IF WORSENIN G PAIN OR DIFFICUL TY SWALLOWI NG CALL OFFICE FOR ENT APPT.; RECORDED 12/16/19 13 10:04AM BY BARBARA ARTIS ON/ADDEN LUIS FERNANDO Jimenez, [facility] 6 15:19:04 Tobacco user [id number] Completed 201305/29/2014 RECORDED 01/17/20 14 10:42AM BY OMAYRA Saleem MD, OFFICE VISIT Bela Mondragon PA-C [address], [place], [address], [facility] 6 12:28:31 Patient status finding [id number] Completed 06/29/2016 LUIS FERNANDO Adams, [facility] 6 15:18:43 Backache [id number] Completed 06/29/2016 LUIS FERNANDO Adams, [facility] 6 15:18:46 Urinary incontin ence 071650207 Active Bela Mondragon PA-C [address] [facility] [address], [place], [address], [facility] 6 12:28:32 Cough [id number] Completed 201103/09/2014 RECORDED 03/25/20 12 9:58AM BY ELIZABETH DRAKE MA, ANNOTATI ON/ADDEN DUM LUIS FERNANDO Adams, [facility] 6 15:19:12 Degenera tion of interver tebral disc 74009802 Completed 201103/09/2014 RECORDED 03/25/20 12 9:59AM BY ELIZABETH DRAKE MA, ANNOTATI ON/ADDEN DUM Bela CHOE-C [address] [facility] [address], [place], [address], [facility] 6 12:28:32 Dizzines s and giddines s 868210102 Completed 201203/09/2014 IMPRESSI ON: NORMAL EXAM; RECORDED 09/01/19 13 1:16PM BY CHERIE HERRERA MA, ANNOTATI ON/ADDEN DUM Bela CHOE-C [address], [place], [address], [facility] 6 12:28:32 Edema 657401210 Completed 201103/09/2014 IMPRESSI ON: BILATERA L, LUNGS CLEAR, C/W DEPENDEN T EDEMA, HAS TAKEN HCTZ IN THE PAST WITH IMPROVEM ENT, ALSO REVIEWED DIET/LEG ELEVATIO N/WEIGHT LOSS/COM PRESSION STOCKING S; RECORDED 06/12/20 12 9:04AM BY BARBARA ARTIS ON/ADDEN DUM Brenda green MA null, [facility] 6 15:18:56 Elevated blood-pr essure reading without diagnosi s of hyperten yue 227628633 Active Bela Mondragon PA-C [address] [facility] [address], [place], [address], [facility] 6 12:28:32 Adult health examinat ion Completed 201103/09/2014 IMPRESSI ON: PAP IS UTD, PT TO START EXERCISI NG; RECORDED 07/08/20 12 1:24PM BY BARBARA GUIDRY ON/ADDEN DUM Bela Mondragon PA-C [address] [facility] [address], [place], [address], [facility] 6 12:28:32 Pure hypercho lesterol emia 681319159 Completed 01/25/2017 Omayra garrett null, [facility] 7 14:59:23 Knee pain Completed 201203/09/2014 IMPRESSI ON: PT IN A MOMIN TO LEAVE SO DID NOT EXAMINE KNEES. WILL START WITH X-RAY SINCE MAY HAVE DJD. F/U WITH PCP FOR FURTHER ASSESSME NT. 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 [address], [place], [address], [facility] 6 12:28:32 Lumbar sprain 584503861 Completed 200903/09/2014 RECORDED 11/12/19 10 9:28AM BY BARBARA SWEENEY ON/ADDEN DUM Bela Evcarco-C [address] [facility] [address], [place], [address], [facility] 6 12:28:32 Recurren t major depressi ve episodes 533411573 Active Bela Evcarco-C [address] [facility] [address], [place], [address], [facility] 6 12:28:31 Malaise and fatigue 574577855 Completed 200903/09/2014 IMPRESSI ON: LONG TALK RE WEIGHT, ADDICTIV E EATING BEHAVIOR S, WILL OCNTINUE COUNSELI NG AND TRY TO INCREASE EXERCISE . SEES DR MORALES TOO. DOES NOT FEEL SHE NEEDS MEDS FOR DEPRESSI ON, FEELS WELL MOSTLY.; RECORDED 11/12/19 10 9:28AM BY BARBARA SWEENEY ON/ADDEN DUM Bela Evcarco-C [address] [facility] [address], [place], [address], [facility] 6 12:28:32 Administ ration of measles and mumps and rubella vaccine Completed 201103/09/2014 RESOLVED DATE: 06/13/20 12; IMPRESSI ON: NEG MUMPS TITER, NEEDS REVACCIN ATION; RECORDED 06/13/20 12 12:55PM BY OMAYRA Saleem MD, OFFICE VISIT Bela CHOE-C [address], [place], [address], [facility] 6 12:28:32 Nausea 547235193 Completed 201103/09/2014 IMPRESSI ON: RULE OUT PREGNANC Y; RECORDED 07/08/20 12 1:24PM BY BARBARA GUIDRY ON/ADDEN DUM Bela CHOE-C [address] [facility] [address], [place], [address], [facility] 6 12:28:32 Neck pain 55384314 Completed 01/25/2017 Omayra garrett [facility] 7 14:59:05 Lymphedeunice nevarez [id number] Completed 201103/09/2014 RECORDED 03/25/20 12 9:59AM BY ELIZABETH DRAKE MA, CHINTANATI ON/ADDEN DUM Bela CHOE-C [address], [place], [address], [facility] 6 12:28:31 Obesity 609370990 Completed 01/08/2020 Bela CHOE-C [address], [place], [address], [facility] 0 17:12:44 Osteoart hritis of knee 375040148 Active Bela CHOE-C [address], [place], [address], [facility] 6 12:28:32 Otalgia 09274729 Completed 201103/09/2014 RECORDED 03/25/20 12 9:59AM BY ELIZABETH DRAKE MA, BARBARA ON/ADDEN DUM Bela Evcarco-C [address] [facility] [address], [place], [address], [facility] 6 12:28:31 Synoviti s/tenosy novitis - hand 059722278 Completed 200903/09/2014 IMPRESSI ON: POSSIBLE CARPAL TUNNEL SYNDROME ; RECORDED 11/12/19 10 9:28AM BY BARBARA SWEENEY ON/ADDEN DUM Bela Evcarco-C [address] [facility] [address], [place], [address], [facility] 6 12:28:32 Joint pain in ankle and foot Completed 200903/09/2014 IMPRESSI ON: FXT FIBULA AND OTHER IN 01/01, STILL WITH AIN EXPECTED , TX WITH ULTRAM SINCE NO CONTRAIN DICATION S AND USE MOTRIN 800MG TID WITH FOOD; RECORDED 11/12/19 10 9:27AM BY BARBARA SWEENEY ON/ADDEN DUM Bela DynC [address] [facility] [address], [place], [address], [facility] 6 12:28:32 Pain in thoracic spine 306952251 Completed 200903/09/2014 IMPRESSI ON: MUSCULAR , STRETCH; RECORDED 11/12/19 10 9:27AM BY BARBARA SWEENEY ON/ADDEN DUM Bela Yo que Vos PA-C [address] [facility] [address], [place], [address], [facility] 6 12:28:32 Skin sensatio n disturba vae 75108337 Completed 201103/09/2014 IMPRESSI ON: AT SITE OF PREVIOUS CONTUSIO N FROM ABOUT A MONTH AGO, WITHOUT PAIN OR WITHOUT SIGNS OF CELLULIT IS, FOR NOW WILL MONITOR; RECORDED 06/12/20 12 9:03AM BY BARBARA ARTIS ON/ADDEN DUM Bela Mondragon PA-C [address], [place], [address], [facility] 6 12:28:32 Immuniza tion refused Completed 201203/09/2014 RECORDED 05/09/20 13 10:00AM BY BARBARA GUIDRY ON/ADDEN DUM Bela Mondragon OH-C [address], [place], [address], [facility] 6 12:28:32 Plantar fascial fibromat osis 12636963 Completed 201103/09/2014 RECORDED 06/12/20 12 9:04AM BY BARBARA ARTIS ON/ADDEN DUM Bela Mondragon OH-C [address] [facility] [address], [place], [address], [facility] 6 12:28:32 Pyelonep hritis 24241497 Completed 201103/09/2014 IMPRESSI ON: SEE ABOVE, PT TO FINISH BACTRIM TO ER IF CANNOT TOLERATE PO WITH VOMITING OR FEELS DIZZY.., PT WILL CALL AND CHECK WITH ADMISSIONS CLINICIAN TOMORROW ABOUT MAKING SURE SENSITIV ITIES MATCH BACTRIM, FLUIDS REST; RECORDED 03/25/20 12 9:59AM BY ELIZABETH DRAKE MA, BARBARA ON/ADDEN DUM Bela Mondragon OH-C [address], [place], [address], [facility] 6 12:28:31 Hypertro phic conditio n of skin 19466941 Completed 201203/09/2014 IMPRESSI ON: AFTER WEIGHT LOSS. GETS INTERTRI GO FUNGAL INFECTIO NS DUE TO THIS; RECORDED 05/09/20 13 10:00AM BY BARBARA GUIDRY ON/ADDEN DUM Bela Mondragon PA-C [address] [facility] [address], [place], [address], [facility] 6 12:28:32 Influenz a vaccine needed [id number] 06 Completed 201103/09/2014 RECORDED 06/12/20 12 9:13AM BY PRATIBHA SILVEIRA, OFFICE VISIT Bela Mondragon PA-C [address] [facility] [address], [place], [address], [facility] 6 12:28:32 Pain in limb 10482997 Completed 201103/09/2014 IMPRESSI ON: PT TO SET UP APPT; RECORDED 03/25/20 12 9:59AM BY ELIZABETH DRAKE MA, ANNOTATI ON/ADDEN DUM Bela Mondragon PA-C [address] [facility] [address], [place], [address], [facility] 6 12:28:32 Inflamma tion of sacroili ac joint 22847270 Completed 201103/09/2014 IMPRESSI ON: RIGHT SIDED PAIN, CHANGE TO IBUPROFE N WITH FOOD AND TYLENOL WITH CODEINE AT NIGHT. PE 05/[address] UP PT HAS PAPERWOR K; RECORDED 07/08/20 12 1:24PM BY JULEE NESBITT I, BARBARA ON/ADDEN DUM Bela Mondragon PA-C [address] [facility] [address], [place], [address], [facility] 6 12:28:32 Morbid obesity 027235850 Active Bela Mondragon PA-C [address] [facility] [address], [place], [address], [facility] 6 12:28:31 Shoulder joint pain 762037413 Completed 201103/09/2014 IMPRESSI ON: SOUNDS LIKE BURSISIT PT TO SEE ALANNA Chavez [facility] FOR INJECTIO N; RECORDED 03/25/20 12 9:59AM BY ELIZABETH DRAKE MA, ANNOTATI ON/ADDEN DUM Bela MOCKC [address] [facility] [address], [place], [address], [facility] 6 12:28:32 Chronic sinusiti s 10412577 Completed 201103/09/2014 RECORDED 03/25/20 12 9:59AM BY ELIZABETH DRAKE MA, ANNOTATI ON/ADDEN DUM Bela Mondragon PA-C [address], [place], [address], [facility] 6 12:28:31 Administ ration of diphther ia and tetanus vaccine Completed 201103/09/2014 RECORDED 07/08/20 12 1:24PM BY JULEE NESBITT I, CHINTANATI ON/ADDEN DUM Bela Mondragon PA-C [address], [place], [address], [facility] 6 12:28:32 Urinary tract infectio us disease 07735165 Completed 200803/09/2014 RECORDED 12/07/19 09 8:54AM BY BRENDA STEINER MA, BARBARA ON/ADDEN DUM Bela Mondragon PA-C [address], [place], [address], [facility] 6 12:28:31 Wheezing 62780120 Completed 201103/09/2014 RECORDED 03/25/20 12 9:59AM BY ELIZABETH DRAKE MA, ANNOTATI ON/ADDEN DUM Bela Mondragon PA-C [address], [place], [address], [facility] 6 12:28:32 Inflamma tory disorder of extremit y 500773795 Completed 201104/05/2014 IMPRESSI ON: REVIEWED XRAY WITH ALPHONSE JOHNSON EXAM CONSISTE NT WITH ACHILLES TENDONIT IS, AND SWELLING NO MASS FELT; RECORDED 03/25/20 12 9:59AM BY ELIZABETH DRAKE MA, ANNOTATI ON/ADDEN DUM Bela Mondragon PA-C [address], [place], [address], [facility] 6 12:28:32 Acute bronchit is 22499639 Completed 201104/05/2014 RECORDED 03/25/20 12 9:59AM BY ELIZABETH DRAKE MA, BARBARA ON/ADDEN DUM Bela CHOE-C [address], [place], [address], [facility] 6 12:28:31 Acute pharyngi tis 540976416 Completed 201204/05/2014 IMPRESSI ON: + RAPID STREP, POSSIBLE RIGHT EARLY PERITONS ILLAR ABSCESS, TX WITH ABX/FLUI DS/NSAID S, IF WORSENIN G PAIN OR DIFFICUL TY SWALLOWI NG CALL OFFICE FOR ENT APPT.; RECORDED 12/16/19 13 10:04AM BY BARBARA ARTIS ON/ADDEN DUM Brenda green MA null, [facility] 6 15:19:04 Cough 76324959 Completed 201104/05/2014 RECORDED 03/25/20 12 9:58AM BY ELIZABETH DRAKE MA, ANNOTATI ON/ADDEN DUM Brenda green [place] [facility], [facility] 6 15:19:12 Degenera tion of interver tebral disc 66847699 Completed 201104/05/2014 RECORDED 03/25/20 12 9:59AM BY ELIZABETH DRAKE MA, BARBARA ON/ADDEN DUM Bela CHOE-C [address], [place], [address], [facility] 6 12:28:32 Dizzines s and giddines s 439241750 Completed 201204/05/2014 IMPRESSI ON: NORMAL EXAM; RECORDED 09/01/19 13 1:16PM BY CHERIE HERRERA MA, BARBARA ON/ADDEN DUM Bela Mondragon PA-C [address], [place], [address], [facility] 6 12:28:32 Edema 796261636 Completed 201104/05/2014 IMPRESSI ON: BILATERA L, LUNGS CLEAR, C/W DEPENDEN T EDEMA, HAS TAKEN HCTZ IN THE PAST WITH [facility] ENT, ALSO REVIEWED DIET/LEG ELEVATIO N/WEIGHT LOSS/COM PRESSION STOCKING S; RECORDED 06/12/20 12 9:04AM BY BARBARA ARTIS ON/ADDEN DUM Brenda green MA null, [facility] 6 15:18:56 Adult health examinat ion Completed 201304/05/2014 IMPRESSI ON: PAP IS OVERDUE, PT WILL ARRANGE THIS, PT HAS AN IUD IN PLACE. PT WILL WORK ON DIET AND EXERCISE .; RECORDED 01/17/20 14 10:22AM BY BARBARA ARTIS ON/ADDEN DUM Bela CHOE-C [address], [place], [address], [facility] 6 12:28:32 Knee pain Completed 02/02/2019 [facility] 15:55:45 Lipoma of skin and subcutan eous tissue (excludi ng face) 958610831 Completed 201104/05/2014 IMPRESSI ON: BACK; RECORDED 06/12/20 12 9:04AM BY BARBARA ARTIS ON/ADDEN DUM Bela MOCKC [address], [place], [address], [facility] 6 12:28:31 Low back pain 892837427 Completed 201204/05/2014 IMPRESSI ON: X 1 DAY, OCCURED WHILE BENDING OVER; RECORDED 09/05/19 13 10:23AM BY CHERIE HERRERA MA, BARBARA ON/ADDEN DUM Bela CHOE-C [address], [place], [address], [facility] 6 12:28:32 Lumbar sprain 253068435 Completed 200904/05/2014 RECORDED 11/12/19 10 9:28AM BY BARBARA SWEENEY ON/ADDEN DUM Bela Mondragon [facility] [address] [facility] [address], [place], [address], [facility] 6 12:28:32 Malaise and fatigue 863182829 Completed 200904/05/2014 IMPRESSI ON: LONG TALK RE WEIGHT, ADDICTIV E EATING BEHAVIOR S, WILL OCNTINUE COUNSELI NG AND TRY TO INCREASE EXERCISE . SEES DR MORALES TOO. DOES NOT FEEL SHE NEEDS MEDS FOR DEPRESSI ON, FEELS WELL MOSTLY.; RECORDED 11/12/19 10 9:28AM BY BARBARA SWEENEY ON/ADDEN DUM Bela [facility] [address] [facility] [address], [place], [address], [facility] 6 12:28:32 Administ ration of measles and mumps and rubella vaccine Completed 201104/05/2014 RESOLVED DATE: 06/13/20 12; IMPRESSI ON: NEG MUMPS TITER, NEEDS REVACCIN ATION; RECORDED 06/13/20 12 12:55PM BY OMAYRA Saleem MD, OFFICE VISIT Bela Mondragon [facility] [address] [facility] [address], [place], [address], [facility] 6 12:28:32 Nausea 415349934 Completed 201104/05/2014 IMPRESSI ON: RULE OUT PREGNANC Y; RECORDED 07/08/20 12 1:24PM BY BARBARA GUIDRY ON/ADDEN D[facility] [address] [facility] [address], [place], [address], [facility] 6 12:28:32 Lymphede md [id number] Completed 201104/05/2014 RECORDED 03/25/20 12 9:59AM BY ELIZABETH DRAKE MA, CHINTANATI ON/ADDEN DUM Bela Mondragon PA-C [address], [place], [address], [facility] 6 12:28:31 Otalgia 49639406 Completed 201104/05/2014 RECORDED 03/25/20 12 9:59AM BY ELIZABETH DRAKE MA, ANNOTLUCIA ON/ADDEN DUM Bela Mondragon PA-C [address], [place], [address], [facility] 6 12:28:31 Synoviti s/tenosy novitis - hand 908065911 Completed 200904/05/2014 IMPRESSI ON: POSSIBLE CARPAL TUNNEL SYNDROME ; RECORDED 11/12/19 10 9:28AM BY BARBARA SWEENEY ON/ADDEN DUM Bela Mondragon PA-C [address], [place], [address], [facility] 6 12:28:32 Joint pain in ankle and foot Completed 200904/05/2014 IMPRESSI ON: FXT FIBULA AND OTHER IN 01/01, STILL WITH AIN EXPECTED , TX WITH ULTRAM SINCE NO CONTRAIN DICATION S AND USE MOTRIN 800MG TID WITH FOOD; RECORDED 11/12/19 10 9:27AM BY BARBARA SWEENEY ON/ADDEN DUM Bela Mondragon PA-C [address], [place], [address], [facility] 6 12:28:32 Pain in thoracic spine 846991899 Completed 200904/05/2014 IMPRESSI ON: MUSCULAR , STRETCH; RECORDED 11/12/19 10 9:27AM BY BARBARA SWEENEY ON/ADDEN DUM Bela Mondragon PA-C [address], [place], [phone], [facility] [place] 6 12:28:32 Skin sensatio n disturba nce [id number] Completed 201104/05/2014 IMPRESSI ON: AT SITE OF PREVIOUS CONTUSIO N FROM ABOUT A MONTH AGO, WITHOUT PAIN OR WITHOUT SIGNS OF CELLULIT IS, FOR NOW WILL MONITOR; RECORDED 06/12/20 12 9:03AM BY BARBARA ARTIS ON/ADDEN DUM Bela Mondragon PA-C [address], [place], [phone], [facility] [place] 6 12:28:32 Knee pain Completed 201104/05/2014 RECORDED 03/25/20 12 9:59AM BY ELIZABETH DRAKE MA, BARBARA ON/ADDEN DUM Omayra garrett [facility] 9 15:55:45 Immuniza tion refused Completed 201204/05/2014 RECORDED 05/09/20 13 10:00AM BY BARBARA GUIDRY ON/ADDEN DUM Bela Yo que Vos PA-C [address], [place], [address], [facility] 6 12:28:32 Plantar fascial fibromat osis 74630619 Completed 201104/05/2014 RECORDED 06/12/20 12 9:04AM BY BARBARA ARTIS ON/ADDEN DUM Bela Mondragon PA-C [address], [place], [address], [facility] 6 12:28:32 Pyelonep hritis 74432398 Completed 201104/05/2014 IMPRESSI ON: SEE ABOVE, PT TO FINISH BACTRIM TO ER IF CANNOT TOLERATE PO WITH VOMITING OR FEELS DIZZY.., PT WILL CALL AND CHECK WITH ADMISSIONS CLINICIAN TOMORROW ABOUT MAKING SURE SENSITIV ITIES MATCH BACTRIM, FLUIDS REST; RECORDED 03/25/20 12 9:59AM BY ELIZABETH DRAKE MA, BARBARA ON/ADDEN DUM Bela Mondragon PA-C [address], [place], [address], [facility] 6 12:28:31 Hypertro phic conditio n of skin 55730954 Completed 201204/05/2014 IMPRESSI ON: AFTER WEIGHT LOSS. GETS INTERTRI GO FUNGAL INFECTIO NS DUE TO THIS; RECORDED 05/09/20 13 10:00AM BY BARBARA GUIDRY ON/ADDEN DUM Bela CHOE-C [address] [facility] [address], [place], [address], [facility] 6 12:28:32 Influenz a vaccine needed 50060910891 06 Completed 201104/05/2014 RECORDED 06/12/20 12 9:13AM BY PRATIBHA SILVEIRA, OFFICE VISIT Bela CHOE-C [address] [facility] [address], [place], [address], [facility] 6 12:28:32 Pain in limb 06545350 Completed 201104/05/2014 IMPRESSI ON: PT TO SET UP APPT; RECORDED 03/25/20 12 9:59AM BY ELIZABETH DRAKE MA, BARBARA ON/ADDEN DUM Bela Mondragon PA-C [address] [facility] [address], [place], [address], [facility] 6 12:28:32 Inflamma tion of sacroili ac joint 89676659 Completed 201104/05/2014 IMPRESSI ON: RIGHT SIDED PAIN, CHANGE TO IBUPROFE N WITH FOOD AND TYLENOL WITH CODEINE AT NIGHT. PE 05/[address] UP PT HAS ANGEL K; RECORDED 07/08/20 12 1:24PM BY BARBARA GUIDRY ON/ADDEN DUM Bela MOCKC [address] [facility] [address], [place], [address], [facility] 6 12:28:32 Shoulder joint pain 560829677 Completed 201104/05/2014 IMPRESSI ON: SOUNDS LIKE BURSISIT PT TO SEE [facility]; RECORDED 03/25/20 12 9:59AM BY ELIZABETH DRAKE MA, BARBARA ON/ADDEN DUM Bela Mondragon PA-C [address], [place], [address], [facility] 6 12:28:32 Chronic sinusiti s 24856397 Completed 201104/05/2014 RECORDED 03/25/20 12 9:59AM BY ELIZABETH DRAKE MA, BARBARA ON/ADDEN DUM Bela Mondragon PA-C [address] [facility] [address], [place], [address], [facility] 6 12:28:31 Administ ration of diphther ia and tetanus vaccine Completed 201104/05/2014 RECORDED 07/08/20 12 1:24PM BY BARBARA GUIDRY ON/ADDEN DUM Bela Mondragon PA-C [address] [facility] [address], [place], [address], [facility] 6 12:28:32 Urinary tract infectio us disease 44709499 Completed 200804/05/2014 RECORDED 12/07/19 09 8:54AM BY BRENDA STEINER MA, BARBARA ON/ADDEN DUM Bela Mondragon PA-C [address] [facility] [address], [place], [address], [facility] 6 12:28:32 Wheezing 87205523 Completed 201104/05/2014 RECORDED 03/25/20 12 9:59AM BY ELIZABETH DRAKE MA, BARBARA ON/ADDEN DUM Bela Mondragon PA-C [address] [facility] [address], [place], [address], [facility] 6 12:28:32 Dysuria 00968173 Completed 06/29/2016 Brenda green MA null, [facility] 6 15:19:10 Acute pharyngi tis 977921856 Completed 06/29/2016 LUIS FERNANDO Adams, [facility] 6 15:19:04 Acute vaginiti s 41543495 Completed 06/29/2016 LUIS FERNANDO Adams, [facility] 6 15:18:52 Cough 71989239 Completed 06/29/2016 LUIS FERNANDO Adams, [facility] 6 15:19:12 Palpitat ions 85519833 Completed 01/25/2017 Omayra deluna [facility] 7 14:59:02 Spasm of back muscles 447643292 Completed 01/25/2017 Omayra delnua [facility] 7 14:59:27 Atrial fibrilla tion 94038679 Completed 02/02/2019 Omayra deluna [facility] 9 15:56:00 Spinal stenosis in cervical region 04343425 Completed 11/30/2014 mri does not show this Bela CHOE-C [address], [place], [address], [facility] 6 12:28:32 Snoring 69309719 Completed 01/25/2017 Omayra deluna [facility] 7 14:58:59 Thyroid nodule 405711693 Active Bela Giancarlo CHOE-C [address], [place], [address], [facility] 6 12:28:31 Insomnia 638486292 Active Belajihan Mondragon PA-C [address], [place], [address], [facility] 6 12:28:31 Degenera tion of thoracic interver tebral disc 79623680 Active T1/T2 Bela CHOE-C [address], [place], [address], [facility] 6 12:28:32 Degenera tion of cervical interver tebral disc 46633626 Completed 01/25/2017 Omayra Curiel-Pamela deluna, [facility] 7 14:59:09 Edema 020715457 Completed 06/29/2016 Brenda green MA null, [facility] 6 15:18:56 Rapid atrial fibrilla tion 895832421 Completed 01/27/2018 Omayra garrett null, [facility] 8 11:21:10 Paroxysm al atrial fibrilla tion 603247576 Active Omayra Curiel-Pamela [email or web address] null, [facility] 6 15:17:25 Panic disorder 168821263 Completed 02/02/2019 Omayra Curiel-Pamela marcelinonmarta deluna, [facility] 9 15:55:48 Patent foramen ovale 726839471 Active Omayra Curiel-D yonathanorenmarta null, [facility] 6 15:17:25 Joint pain 10316541 Completed 01/25/2017 Omayra garrett null, [facility] 7 14:59:13 Anxiety 82373203 Completed 01/08/2020 Bela Mondragon PA-C [address], [place], [address], [facility] 0 17:12:31 Asthma 765081162 Completed 201701/08/2020 Bela CHOE-Man [address], [place], [address], [facility] 0 17:12:58 Ex-smoke r 1922608 Active 2017 Brenda green MA null, [facility] 8 15:42:54 Small bowel obstruct ion 238064778 Active 2018 Brenda green MA null, [facility] 9 09:46:54 Generali zed anxiety disorder 42017570 Active 2019 Bela Mondragon PA-C [address], [place], [address], [facility] 0 17:12:32 Mild intermit tent asthma 119137784 Active 2019 Bela Mondragon PA-C [address], [place], [address], [facility] 0 17:13:08 [facility] 368380685 Active 2019 Bela MOCKC [address], [place], [address], [facility] 0 17:13:31 Obstruct jefry sleep apnea syndrome 67784419 Active 2022 Cabrera Mondragon PA-C [address], [place], [address], [facility] 3 17:09:42 Pain of left hip joint 46606808520 9100 Active 2022 Cabrera Mondragon PA-C [address], [place], [address], [facility] 3 17:10:00 Lateral epicondy litis of left humerus 03088720124 9100 Active 2022 Cabrera Mondragon PA-C [address], [place], [address], [facility] 3 13:33:40 Problem Notes None recorded. Procedures Surgical History Date Name Laterality Status Provider Name and Address Organization Details Recorded Time 05/21/20 23 Endoscopic us exam esoph completed Leslie Alba [facility] 05/21/2023 11:10:55 04/20/20 23 laparoscopic appendectomy completed Leslie Alba [facility] 04/22/2023 10:12:44 04/20/20 23 Appendectomy completed Avelina Encinas RN [facility] 04/30/2023 10:29:16 04/19/20 23 Appendectomy completed Avelina Encinas RN [facility] 04/25/2023 09:55:00 11/24/19 22 cardioversion completed Avelina Encinas RN [facility] 11/27/2021 13:27:24 01/24/20 17 extraction of wisdom tooth completed Brenda zurita MA [facility] 01/12/2019 09:34:35 Mammogram screening completed Brenda zurita [facility] 06/29/2016 15:20:32 Colonoscopy completed Brenda zurita [facility] 06/29/2016 15:20:36 Imaging Results Imaging Date Name Status LastModified by Organiz ation Details LastModified Time 05/21/2023 upper endoscopy procedure (EGD) (PROC) completed [email or web address] [facility] (Medical Records) [address] [place], [address], 05/21/2023 11:11:15 05/21/2023 US, abdomen, complete completed [email or web address] [facility] (Medical Records) [address] [place], [address], 05/22/2023 12:50:47 Procedure Notes None recorded. Medical [...] cm LUIS FERNANDO Goldstein [facility] 01/08/2023 15:48:36 Date Recorded Body height Body mass index (BMI) Body weight Heart rate Oxygen saturation Oxygen saturation in Arterial blood by Pulse oximetry Body temperature Systolic blood pressure Diastolic blood pressure Provider Name and Address Organization Details Last Updated DateTime 171.45 cm 50.2 kg/m2 176868. 52 g 60 /min 97 % 97 [...] Updated DateTime 3 171.45 cm 49.2 kg/m2 497635. 97 g 94 /min 96 % 96 % 97.8 [degF] 113 mm[Hg] 80 mm[Hg] Isela Metz MA [facility] 3 13:21:43 Date Recorded Body height Body mass index (BMI) Body weight Heart rate Oxygen saturation Oxygen saturation in Arterial blood by Pulse oximetry Body temperature Systolic blood pressure Diastolic blood pressure Provider Name and Address Organization Details Last Updated DateTime 3 171.45 cm 48.1 kg/m2 523146. 82 g 68 /min 96 % 96 % 98.3 [degF] 160 mm[Hg] 98 mm[Hg] Isela Metz MA [facility] 3 14:57:00 Social History Question Answer Notes LastModified by Organizat ion Details LastModified Time Tobacco Smoking Status Former Smoker Cherie deluna [facility] 05/18/2014 10:29:49 Do You Have An Advance Directive? No [email or web address] Information not available 06/20/2022 What Is Your Level Of Alcohol Consumption? Occasional [email or web address] Information not available 12/29/2014 Is Blood Transfusion Acceptable In An Emergency? Yes [email or web address] Information not available 01/20/2016 What Is Your Level Of Caffeine Consumption? Occasional [email or web address] Information not available 12/29/2014 How Much Tobacco Do You Chew? None Information not available 06/29/2016 In The 14 Days Before Symptom Onset, Have You Had Close Contact With A Laboratory-confi rmed COVID-19 While That Case Was Ill? No [email or web address] Information not available 06/20/2022 In The 14 Days Before Symptom Onset, Have You Had Close Contact With A Person Who Is Under Investigation For COVID-19 While That Person Was Ill? No [email or web address] Information not available 06/20/2022 Have You Been To An Area Known To Be High Risk For COVID-19? No [email or web address] Information not available 06/20/2022 Are You Currently Employed? Yes [email or web address] Information not available 12/29/2014 What Type Of Diet Are You Following? REGULAR [email or web address] Information not available 12/29/2014 Which Illicit Or Recreational Drugs Have You Used? 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 With Others (Juan Carlos) And 2 Daughters [email or web address] Information not available 06/20/2022 Do You Take Precautions To Prevent Distracted Driving? Yes [email or web address] Information not available 01/20/2016 How Often Do You Need To Have Someone Help You When You Read Instructions, Pamphlets, Or Other Written Material From Your Doctor Or Pharmacy? Sometimes [email or web address] Information not available 01/20/2016 Have You Served [...] Of Your Most Recent Tobacco Screening? 06/20/2022 [email or web address] Information not available 06/20/2022 How Many Children Do You Have? 2 Adriana And Renee Information not available 03/27/2018 What Is Your Current Pack Years? 10packyears [email or web address] Information not available 06/20/2022 Do You Use Protection During Sex? No Information not available 06/29/2016 Seat Belts Used Routinely Yes [email or web address] Information not available 06/20/2022 Are You Sexually Active? Yes Information not available 06/29/2016 Smoke Alarm In Home Yes [email or web address] Information not available 06/20/2022 Are You Passively Exposed To Smoke? No Information not available 06/29/2016 General Stress Level Medium Information not available 06/20/2022 Do You Use Sunscreen Routinely? Yes [email or web address] Information not available 12/29/2014 How Many Years Have You Smoked Tobacco? 10 [email or web address] Information not available 12/29/2014 Do You Or Have You Ever Used Any Other Forms Of Tobacco Or Nicotine? No [email or web address] Information not available 06/20/2022 Sex: Unknown Functional Status Question Answer Note LastModified by Organizat ion Details LastModified Time Are you able to walk? YESWOREST [email or web address] Information not available 06/20/2022 Are you able to care for yourself? Yes [email or web address] Information not available 12/29/2014 What is your exercise level? Occasional [email or web address] Information not available 02/02/2019 Mental Status None recorded. Family History Relationship Description Onset Age of this Age Resolved Age Notes LastModified by Organization Details LastModified Time Father Alcohol abuse [email or web address] Not available 2019 15:29:15 Notes:Pt is adopted [...] Vaccine Type Date Status Note Provider Nam eunice and Address Organization Details Recorded Time COVID-19, mRNA, LNP-S, PF, 30 mcg/0.3 mL dose 02/28/2021 completed LUIS FERNANDO Artis [facility] [place] 12/13/2021 11:25:33 COVID-19, mRNA, LNP-S, PF, 30 mcg/0.3 mL dose 03/21/2021 completed Pratibha Silveira MA [facility] 12/13/2021 11:25:33 MMR 10/21/2002 completed Not Available [facility] 03/09/2014 14:00:38 Tdap 06/12/2012 completed Not Available [facility] 03/09/2014 14:00:38 MMR 06/12/2012 completed Not Available [facility] 03/09/2014 14:00:38 Past Encounters Encounter ID Performer Location Encounter Start Date Encounter Closed Date Diagnosis/Indication Diagnosis SNOMED-CT Code Diagnosis ICD10 Code Diagnosis Note [id number] autoEComm erce [address] [facility] [place] [address] 11/13/2006 00:00:00 [id number] autoEComm erce [address] [facility] [place] [address] 12/23/2006 00:00:00 [id number] autoEComm erce [address] [facility] [place] [address] 07/28/2007 00:00:00 [id number] autoEComm erce [address] [facility] [place] [address] 12/06/2008 00:00:00 [id number] autoEComm erce [address] [facility] [place] [address] 03/25/2009 00:00:00 [id number] autoEComm erce [address] [facility] [place] [address] 04/28/2009 00:00:00 [id number] autoEComm erce [address] [facility] [place] [address] 11/11/2009 00:00:00 [id number] autoEComm erce [address] [facility] [place] [address] 12/20/2009 00:00:00 [id number] autoEComm erce [address] [facility] [place] [address] 02/17/2010 00:00:00 [id number] [address]Comm erce [address] [place] [address] 07/25/2010 00:00:00 [id number] autoEComm erce [address] [place] [address] 09/13/2010 00:00:00 [id number] autoEComm erce [address] [place] [address] 11/11/2010 00:00:00 [id number] autoEComm erce [address] [place] [address] 02/01/2011 00:00:00 [id number] autoEComm erce [address] [place] [address] 02/05/2011 00:00:00 [id number] autoEComm erce [address] [facility] [place] [address] 02/06/2011 00:00:00 [id number] autoEComm erce [address] [facility] [address] [place] [address] 02/15/2011 00:00:00 [id number] autoEComm erce [address] [facility] [address] [place] [address] 03/08/2011 00:00:00 [id number] autoEComm erce [address] [facility] [place] [address] 11/26/2011 00:00:00 [id number] autoEComm erce [address] [facility] [address] [place] [address] 11/30/2011 00:00:00 [id number] autoEComm erce [address] [facility] [address] [place] [address] 01/09/2012 00:00:00 [id number] autoEComm erce [address] [facility] [address] [place] [address] 03/25/2012 00:00:00 [id number] autoEComm erce [address] [facility] [address] [place] [address] 06/12/2012 00:00:00 [id number] autoEComm erce [address] [facility] [place] [address] 07/08/2012 00:00:00 [id number] autoEComm erce [address] [facility] [place] [address] 09/01/2012 00:00:00 [id number] autoEComm erce [address] [facility] [place] [address] 09/05/2012 00:00:00 [id number] autoEComm erce [address] [facility] [place] [address] 10/16/2012 00:00:00 [id number] autoEComm erce [address] [facility] [place] [address] 12/15/2012 00:00:00 [id number] autoEComm erce [address] [facility] [place] [address] 05/09/2013 00:00:00 [id number] autoEComm erce [address] [facility] [place] [address] 07/27/2013 00:00:00 [id number] autoEComm erce [address] [facility] [place] [address] 12/25/2013 00:00:00 [id number] autoEComm erce [address] [facility] [place] [address] 01/16/2014 00:00:00 [id number] Elizabeth Drake MA Main Office [address] [facility] [address] [place] [address] 05/18/2014 10:10:59 05/18/2014 10:49:51 Dysuria 72722109 UA c/w UTI, will tx and send culture Acute pharyngitis 193162821 rapid strep neg. [id number] Pratibha Silveira MA Main Office [address] [facility] [address] [place] [address] 05/29/2014 11:51:21 05/29/2014 12:23:45 Cough 26363077 Sounds inflammato ry in nature likely post viral infection vs allergy related. No current evidence for bacterial process. Will address inflammati on/broncho constricti on while waiting to see if allergy rx helps. Would need re-eval and consider of abx/CXR if persistent or sputum becomes purulent. [id number] Main Office [address] [facility] [address] [place] [address] 06/08/2014 13:52:54 06/08/2014 14:36:30 Palpitations 61336714 likely the endocrine system resetting itself after being on prednisone . reassuranc e. call if worsening [id number] Jena Dominique Main Office [address] [address] [place] [address] 09/20/2014 11:26:27 09/20/2014 11:45:06 Backache 481441731 Continue cyclobenza tete and finish course of prednisone , just started 2d ago, if back pain persists/w hernandoens will refer to PT. [id number] William Johnson Main Office [address] [address] [place] [address] 11/08/2014 09:40:15 11/08/2014 10:41:46 Acute pharyngitis 587009384 Cough 07511833 with fev er and body aches on day 6, suspect bacterial process such as pneumonia. will treat empiricall y. f/u if worsening [id number] Jena Dominique Main Office [address] [address] [place] [address] 11/17/2014 16:24:25 11/17/2014 17:32:05 Palpitations 16282380 Atrial fibrillation 27450137 new onset with RVR. not clear if pain in her upper back is related to the afib. to ER for lowering HR and further assessment for new onset afib Neck pain 55815865 with radiating sxs. likely a cervical radiculopa thy. but it is possible that it is something cardiac related to the afib. will be further assessed in the ER. [id number] Irina Peacock MA Main Office [address] [facility] [address] [place] [address] 11/23/2014 13:19:45 11/23/2014 14:23:50 Atrial fibrillation 66516922 rate well controlled . she will f/u with cardio as planned. Spinal guerrero nosis in cervical region 44274983 concerning that she has a positive babinski on left. will get urgent outpatient MRI. she could have cervical myelopathy . oycodone and valium not controllin g her pain well. we will do gabapentin . this can also help the insomnia she is having. will have her start at 300mg at bedtime. then adding 100mg during afternoon, then 100mg morning, afternoon, and 300mg in the evening. she understand s this can cause sedation especially with other meds she is on. caution driving. she really wants to return to work in 2 days. she can increase her bedtime dose up to 600mg before next visit in 2 wks. Snoring 83175733 Thyroid nodule 084236399 Insomnia 955449104 see a elena discussion about gabapentin [id number] Main Office [address] [facility] [address] [place] [address] 12/13/2014 14:13:19 12/13/2014 14:49:18 Atrial fibrillation 31357087 on meds below and doing well continue followup with cardiology Degenerati on of cervical intervertebral disc 13169351 trial of tramadol Thyroid nodule 588981931 pt will get thyroid nodule looked at, most likely will get biopsy Edema 292533919 [id number] Omayra rush Main Office [address] [facility] [address] [place] [address] 12/29/2014 09:06:58 12/29/2014 10:00:23 Adult health examination 040379034 utd on screening Degenerati on of cervical intervertebral disc 69690247 pt is on tramadol and it helps, still having pain, pt is waiting for PT apt, will have my staff call and check on it Atrial fibrillation 92085221 on meds below and doing well continue followup with cardiology , only on FS asa and cartia, continue Thyroid nodule 483487055 needle biopsy later this month, will hold asa for 5 days prior and then will ask thyroid surgeon when she can restart, keep on all other rmeds Edema [id number] Juan Diego Cali MD Main Office [address] [facility] [address] [place] [address] 08/03/2015 11:18:40 08/03/2015 11:44:57 Cough 92129457 R05 Symptomati c treatment- lots of fluids, rest, tea with honey, OTC cough drops/ cough med as needed, humidifier as needed. Tylenol or ibuprofen for fever/ pain. Return for worsening/ concerns. [id number] Omayra rush Main Office [address] [facility] [address] [place] [address] 12/19/2015 09:57:59 12/19/2015 11:39:30 Palpitations 01231991 R00.2 Rapid atri al fibrillation 667559339 I48.91 Pt. is referred by ambulance to [facility] ER for management of rapid arrhythmia . PT. was maintained on O2 by nasal canula on 2L until paramedics arrived. Pt. will be seen in hospital f/u after the discharge and sleep study will be arranged for her. Note faxed to ER. [id number] Claire Quinonez Main Office [address] [facility] [address] [place] [address] 12/21/2015 10:51:33 12/21/2015 11:58:58 Paroxysmal atrial fibrillation 449555277 I48.0 Recommend to avoid alcohol. Check TSH and CBC. Schedule echocardio gram and sleep study. Consider cardiac referral. Panic disorder 903346551 F41.0 Pt. is on Tramadol for neck pain which will interact with SSRIs. Will recommend to restart counseling [facility] and use Lorazepam PRN for panic attacks. PT. will address this at f/u with PCP. Snoring 34464080 R06.83 Sleep study referral is made to do RIVER. [id number] Hollie Aguayo Main Office [address] [facility] [address] [place] [address] 01/02/2016 13:10:18 01/02/2016 14:49:25 Paroxysmal atrial fibrillation 977129646 I48.0 2 documented episodes total, one in 12/09 and one a year ago. THe one in in 12/09 was after heavy drinking the night before, pt with a small PFO on Echo, will start a baby aspirin and see dR Brandt tomorrw Edema 294488199 R60.9 continue hctz Joint pain 44618034 M25. 50 pt with diffuse joint pain, she finds she is so much more comfortabl e on tramadol 100mg bid Patent foramen ovale 204 332034 Q21.1 seen on echo, started pt on a baby aspirin today Anxiety 71399929 F41.9 will work on this and her eating issues, she feels she is addicted to food. meetin with Gretta today [id number] Omayra CurielMarisela adri Main Office [address] [facility] [address] [place] [address] 01/20/2016 14:12:02 01/20/2016 15:11:46 Adult health examination 490386391 Z00.00 utd on screening Screening for malignant neoplasm of breast 671732636 Z12.39 pt will arrange Patent foramen ovale 204 316551 Q21.1 seen on echo, started pt on a baby aspirin and cardiology has reviewed with her Paroxysmal atrial fibrillation 590900265 I48.0 2 documented episodes total, one in 12/09 and one a year ago. THe one in in 12/09 was after heavy drinking the night before, pt with a small PFO on Echo, pt is on baby asa, saw cardiology , they wanted to do a 30 day event monitor but pt doesnot want to do, I told pt to call them and see if there was a shorter monitor she could do Edema 829565677 R60.9 continue hctz [id number] Omayra CurielMarisela fergusonenzo Main Office [address] [facility] [address] [place] [address] 06/06/2016 13:54:52 06/06/2016 14:26:07 Atrial fibrillation 18485905 I48.91 regular rhythmn today, on baby aspirin, no recent episodes. one was associated with alcohol in the past Acute pharyngitis 452113 003 J02.9 neg quick strep, seems viral Cough 05352072 R05 use cough med no abx needed [id number] Lan Oliver MD Main Office [address] [facility] [address] [place] [address] 06/09/2016 10:25:58 06/09/2016 11:21:14 Cough variant asthma 906185969 J45.991 She was instructed to call next week if her symptoms persist. This may be a URI which has set off asthma. [id number] Omayra CurielMarisela fergusonenzo Main Office [address] [facility] [address] [place] [address] 06/11/2016 10:46:37 06/11/2016 11:26:31 Asthmatic bronchitis 971266216 J45.909 R/o pneumonia. Chest XRAy to be done. Continue Prednisone . Taper down to 40 mg for 2 days, 30 for 2 days, 20 for 2, 10 for 2. UP draft with Albuterol given in the office. Continue cough meds , rest and fluids. [id number] Omayra rush Main Office [address] [facility] [address] [place] [address] 06/29/2016 15:09:06 06/29/2016 15:58:04 Acute bacterial bronchitis 097959093 J20.9 Improving though she does still have a cough, will repeat CBC to check WBC. Continue inhaler/ cough med as needed. Elevated blood-pressure reading without diagnosis of hypertension 334318471 R03.0 High BP today, patient notes her BP has been higher lately, will have her f/u in 2 weeks for recheck of BP and she will have BMP done. [id number] Omayra rush Main Office [address] [place] [address] 07/30/2016 13:44:57 07/30/2016 14:59:36 Benign essential hypertension 7667880 I10 [id number] Omayra rush Main Office [address] [address] [place] [address] 10/26/2016 14:44:08 10/26/2016 15:35:24 Acute pharyngitis 610568546 J02.9 Sat water gargles and take OTC pain meds. Elevated blood-pressure reading without diagnosis of hypertension 907312610 R03.0 BP remains borderline . Pt. is on HCTZ 25 mg and is recommende d to continue. Repeat BMP. F/u with PCP in 3-4 m. Keep low sodium and low caffeine diet. [id number] Juan Diego Cali MD Main Office [address] [facility] [address] [place] [address] 10/27/2016 10:46:26 10/27/2016 11:22:38 Acute pharyngitis 692917542 J02.9 Given active abx therapy which should cover strep this is an unlikely diagnosis. Will verify culture results. Most likely a viral process and typical disease course discussed at length with pt. Advised to call if symptoms aren't following this pattern or if new symptoms develop. Supportive /symptomat ic tx advised. Go to ED if unable to maintain hydration/ swallow oral secretions . Exudative pharyngitis 12 1369668 J02.9 [id number] Willy avina Main Office [address] [facility] [address] [place] [address] 10/30/2016 08:51:17 10/30/2016 09:54:13 Acute pharyngitis 445988226 J02.9 strep neg, but persists despites 10 days of amox - ? monet-tonsi lar abscess - see below Dental abscess 732907144 K04.7 s/p amox x 10 days - next f/u 3.28 for tooth extraction Peritonsillar abscess 15 664632 J36 ? caused by dental abscess? Low back pain 306481756 M54.5 Impacted cerumen 8073142 6 H61.21 mild - mod R ear [id number] Omayra rush Main Office [address] [facility] [address] [place] [address] 11/26/2016 08:54:30 11/26/2016 09:29:41 Amenorrhea 84719197 N91.2 neg test Gastroesop hageal reflux disease 944109536 K21.9 untx, quite symptomati c, that is what nausea is form, tx and check h pylori Nausea 791003654 R11.0 due to GERD return 6 weeks, check any discomfort after eating is resolved, if not refer to GI Body mass index 40+ - severely obese 336353860 Z68.41 Obesity 806846406 E66.9 [id number] Omayra Pato rush Main Office [address] [facility] [address] [place] [address] 01/25/2017 14:31:24 01/25/2017 15:18:18 Adult health examination 826222367 Z00.00 utd on screening except mammogram, pt iwll arrange, needs to work on diet and exercise Screening for malignant neoplasm of breast 562124511 Z12.39 pt will arrange Urinary incontinence 165 541021 R32 on meds Morbid obesity 901005858 E66.01 Obesity 739471715 E66.9 Paroxysmal atrial fibrillation 133142414 I48.0 2 documented episodes total, one in 12/09 and one a year ago. THe one in in 12/09 was after heavy drinking the night before, pt with a small PFO on Echo, pt is on baby asa, saw cardiology , they wanted to do a 30 day event monitor but pt did not want to do, I told pt to call them and see if there was a shorter monitor she could do pt was told today to eliminate alcohol due to it seems like a trigger for afib Pain in right knee 36412 25400 12890 M25.561 Sleep apnea 13285376 G47 .30 pt tested positive but has not gotten CPAP yet, needs to make a visit [id number] Omayra rush Main Office [address] [facility] [address] [place] [address] 10/10/2017 15:31:26 10/10/2017 16:02:27 Wheezing 04457657 R06.2 Cough 60083984 R05 Symptomati c treatment- lots of fluids, rest, tea with honey, OTC cough drops/ cough med as needed, humidifier as needed. Tylenol or ibuprofen for fever/ pain. Return for worsening/ concerns. Delsym OTC. Acute bronchitis 6572312 2 J20.9 Pain in right knee 03306 84614 23074 M25.561 had been on tramadol then lost her insurance, requests refill. will fill x 1 month and she will need f/u with PCP to get re-establi shed with med. [id number] Omayra rush Main Office [address] [facility] [address] [place] [address] 10/28/2017 15:53:21 10/28/2017 17:35:33 Cough 98579966 R05 check cxr to r/o pna -- ? d/t pnd Pain of right wrist 3169 078636 03571 M25.531 ? CTS - neg tinels/pha lens/finkl estein -- will get OT eval and rec use wrist splint hs Allergic rhinitis 420550 04 J30.9 Asthma 179441846 J45.20 [id number] Omayra rush Main Office [address] [facility] [address] [place] [address] 11/18/2017 13:44:44 11/18/2017 15:46:12 Cough 99656718 R05 neg cxr, less but persists - pt concerned - see below Dyspnea 944730969 R06.00 nl ekg and spirometry - offered re-assuran ce Asthma 457349316 J45.20 will check spirometry - see above - yue nl, but pt used to take advair yrs ago and states she feels like her lungs are still inflamed/h ave a lot of mucous - will give trial of ICS to see if help Paroxysmal atrial fibrillation 262245958 I48.0 no problems c this in a long time - see above Obstructiv e sleep apnea syndrome 40314278 G47.33 no get cpap machine - encouraged pt to f/u c sleep med Seasonal a llergic rhinitis 802627490 J30.2 cont singulair as dir [id number] Omayra rush Main Office [address] [facility] [address] [place] [address] 01/27/2018 10:50:09 01/27/2018 11:48:58 Adult health examination 421117839 Z00.00 , needs to work on diet and exercise, eats a lot of bread and pasta, pt needs ot get temptation s out of the house, pt tos et up mobile device engineer appt, is overdue Screening for malignant neoplasm of breast 014593345 Z12.39 pt will arrange Lymphedema of lower extremity 485649453 I89.0 better on meds Asthma 228395279 J45.90 9 pt will restart Body mass index 40+ - severely obese 353206374 E66.01 Z68.41 pt to lower carbs, hard for her to keep on the healthy eating track. [id number] Omayra rush Main Office [address] [facility] [address] [place] [address] 03/27/2018 11:24:04 03/27/2018 12:19:20 Lateral epicondylitis 650902393 M77.11 will give 2 options of TE support - she will decide which is covered better / fits better, as well as rec wrist support at hs d/t her sleeping position (R hand bent under head - full wrist flexion), and get pssp eval [id number] Juan Diego Cali MD Main Office [address] [facility] [address] [place] [address] 06/11/2018 09:23:10 06/11/2018 10:12:36 Body mass index 40+ - severely obese 265019486 Z68.42 urged pt to see nutritioni st in [place], and if no sig improvemen t then will consider bariatric sx c bmc, or consider ssri for dep sxs - choose one that has potential SE of wt losswill recheck tsh as well also pt states she will cont to see therapist, then try to go to overeaters anonymous 25 minute office visit with greater than 50% of the visit face-to-fa ce with the patient and/or family providing counseling and/or coordinati on of care. Fatigue 64413729 R53.83 Anxiety 10711385 F41.9 see above re: therapist Morbid obesity 282512734 E66.01 [id number] Omayra rush Main Office [address] [place] [address] 07/30/2018 10:40:47 07/30/2018 11:37:06 Acute asthma 402017935 J45.901 not on any control meds, will start inhaled steroid, pre proair and singulair and return in 3 months will get spirometry then [id number] Ana Maria Gallego Main Office [address] [address] [address] [place] [address] 01/12/2019 09:27:00 01/12/2019 10:40:07 Indigestion 136403750 K30 regular diet, avoid offending foods. Trial of PPI and check for recurrence of hpylori. Has followup with Dr Veena Mccarthy in a month Pain in left knee 133714 8560 16773 M25.562 PT, discuss at followup, will try physical therapy, pt has multiple joint pains for years Diarrhea 47653642 R19.7 ? IBS, try daily fiber and probiotic, followup in a month, if not better consider GI eval. Pt can try dairy eliminatio n for a week, does not have symptoms of gluten intoleranc e. [id number] Omayra rush Main Office [address] [facility] [address] [place] [address] 02/02/2019 15:28:28 02/02/2019 16:19:18 Adult health examination 437936619 Z00.00 eating better, wants to lose weight, is due for mammogram Screening for malignant neoplasm of breast 871888660 Z12.39 we will arrange due to lack of followthfo ugh Patent foramen ovale 204 417283 Q21.1 seen on echo, started pt on a baby aspirin and cardiology has reviewed with her Paroxysmal atrial fibrillation 064189638 I48.0 2 documented episodes total, one in 12/09 and one a year ago. THe one in in 12/09 was after heavy drinking the night before, pt with a small PFO on Echo, pt is on baby asa, saw cardiology , they wanted to do a 30 day event monitor but pt did not want to dom it, pt notes after a night of drinking on a weekend night she will feel about 5 minutes of palpitatio ns that could be afib talked to pt about lessening drinking on weekend to 2, does not drink at all during the week. Lymphedema of lower extremity 305130098 I89.0 better on meds, continue hctz Obstructiv e sleep apnea syndrome 90247833 G47.33 pt ot see sleep medicine again, should retry cpap Body mass index 40+ - severely obese 591196348 E66.01 Z68.42 pt to lower carbs, hard for her to keep on the healthy eating track. [id number] Cabrera Mondragon PA-C Main Office [address] [facility] [address] [place] [address] 04/07/2019 13:19:55 04/07/2019 14:23:48 Pain in left knee 8332393342 84548 M25.562 ? PFS vs other - will get ortho eval, they will likely get xrays xrays 9.13 showed mild arthritic changes - ? worsening low likelihood of meniscal tear - negative provocativ e testing today not ambulating well - will try knee brace, and give trial of meloxicam - safer on gi than ibu but cont pepcid prn 25 minute office visit with greater than 50% of the visit face-to-fa ce with the patient and/or family providing counseling and/or coordinati on of care. Gastroesop hageal reflux disease 361048786 K21.9 [id number] Omayra rush Main Office [address] [facility] [address] [place] [address] 12/31/2019 13:03:19 12/31/2019 14:22:13 Asthma 290431963 J45.909 pt will restart med Urge incon tinence of urine 21739313 N39.41 urology had patient on oxybutynin . will restart Lymphedema of lower extremity 910881789 I89.0 better on meds, will try chlorthali done [id number] Bela Mondragon PA-C [facility] [address] [address] [place] [address] 01/08/2020 15:07:08 01/11/2020 08:39:09 Indigestion 244685221 K30 most likely in response to starting sertraline . Pt tried taking Tums but had no relief. WE will try PPI over the week end and if still having indigestio n discomfort , call after the weekend and be seen in the office to check her EKG. Generalize d anxiety disorder 07388296 F41.1 contineu SSRI as prescribed by psych. MIght be experienci ng symptoms of indigestio n due to SSRI as well. Lymphedema of lower extremity 239423530 I89.0 continue diuretic, but pt. was advised to have labs done not later than after the week end. [id number] Lan Oliver MD [facility] [address] [address] [place] [address] 04/01/2020 07:58:50 04/01/2020 15:09:46 Abdominal pain 22762684 R10.9 She will try simethicon e. There was nothing on her history that warranted immediate attention and she was advised to call the office in the am if it persisted. [id number] Ana Maria Gallego [facility] h [address] [address] [place] [address] 04/22/2020 06:41:45 04/24/2020 10:57:02 [id number] Ana Maria Gallego Main Office [address] [address] [place] [address] 05/30/2020 15:06:28 05/30/2020 16:57:55 Adult health examination 798032516 Z00.00 Pt has concerns about her weight and is under stress with family and work. Social and family history reviewed. Immunizati ons reviewed, advised annual flu shot, will get at [facility] as we do not have any in stock at this time. . She is not up to date on dental and eye providers, mammogram due, mobile device engineer due Reviewed diet and exercise at length, counseling > 25 min Generalize d anxiety disorder 49952402 F41.1 pt agrees to call her counselor to discusss issues especially her wt and eating compulsion . declines medication at this time. NO SI or HI, Addiction 53768842 R46.8 1 Pt feels she has a food addiction, recommende d to go to OA or call to see if any virtual meetings. Most of the appt spent talking about food, eating and stress/anx iety related to this. She will reach out to the counselor, suggested some ideas for this. Elevated blood-pressure reading without diagnosis of hypertension 810186623 R03.0 Pt under stress today, tearful, recheck at next ov Mild inter mittent asthma 010411870 J45.20 stable at this time, uses montelukas t Morbid obesity 217406525 E66.01 Pt will look into OA program. Suggested lowering carbs, more protein, no meal skipping and tips to avoid night eating. Advised to try and me more active. Short term followup [id number] Giorgio Machado MD Main Office [address] [facility] [address] [facility] [place] [address] 12/28/2020 10:59:55 12/28/2020 14:58:13 Cervical radiculopathy 06875190 M54.12 Will do a trail of NSAID mobic, she was told to stop all other NSAID including ibuprofen. For radiculopa thy symptoms harlan do gabapentin qD, she is aware risk of drowsiness associated with gabapentin use and to not operate motor vehicle or machinery with it.Will also do muscle relaxant at night. - risk of sedation discussed she is aware regarding same precaution s discussed above.She was advised warm compress.N willow exercises provided. Urinary incontinence 165 272433 R32 She was on oxybutynin 20 ER, she has a hx of small bowel obstructio n she requested a refill at that dose, given hx of small bowel obstructio n I think it might not be a bad idea for patient to discuss with urology if other options can be explored and she agreed to this. Medial epicondylitis 532 11740 M77.01 Will do trial of NSAID, Patient aware risk of GI bleed as she is also on elaquis. She was told to take with meal. If any signs of bleeding she was asked to stop and let us know. [id number] Ana Maria Gallego Main Office [address] [facility] [address] [place] [address] 01/09/2021 15:56:27 01/10/2021 09:57:35 Paroxysmal atrial fibrillation 907130494 I48.0 pt is followed by cardiology , remains on eliquis, flecanide and metoprolol for now. Seems to be in NSR today, no sx. Advised to consider sleep studay repeat and work on wt loss. Pt wiil consider Body mass index 40+ - severely obese 763194903 E66.01 Z68.41 Pt will decide on team assembler appt, will try cutting back, walking. Discusse OA program Generalize d anxiety disorder 80371717 F41.1 pt agrees to continue with her counselor to discuss issues especially her wt and eating compulsion . declines medication at this time. NO SI or HI, [id number] Ana Maria Gallego Main Office [address] [facility] [address] [place] [address] 01/25/2021 14:49:47 01/25/2021 16:14:43 Cervical radiculitis 15322018 M54.12 trial of short pred taper to decrease inflammati on with radiculopa thy. Side effects reviewed. Cervical radiculopathy 55102053 M54.12 stay on gabapentin , can use bid if not too drowsy, or can use 2 at bedtime Acute thor acic back pain 734610674 M54.6 check xay, do stretches, advised PT, pt will consider Body mass index 40+ - severely obese 845184453 E66.01 Z68.41 pt would like to see team assembler, will do a referral [id number] Omayra Angelest h [address] [facility] [address] [place] [address] 02/13/2021 08:33:32 02/13/2021 14:20:43 Tendinitis of right elbow 6997578846 9313347 M67.823 continued right elbow pain, sounds like tendonitis , ice and set up appt at [facility] for cortisone injection Pain of le ft shoulder blade 109243014 M25.512 pt with muscular pain around left scapula into neck and shoulder, most likely related to muscular pain form poor posture, left sided pectoralis insertion pain on and off, does not feel like pts cardiac pain and it is positional , no need for cardiac eval. pt to set up PT, use a roller on upper back Pain of le ft shoulder joint 3818620404 7399502 M25.512 related to muscular pain from neck and back [id number] Ana Maria Julián Main Office [address] [place] [address] 06/23/2021 13:56:44 06/23/2021 15:13:56 Adult health examination 521962120 Z00.00 Pt has concerns about her weight and is under stress with family and work but stable at this time. Social and family history reviewed. Immunizati ons reviewed, advised annual flu shot,, will be due for Tdap next year . She is not up to date on dental and eye providers, mammogram due, mobile device engineer due Reviewed diet and exercise at length, counseling > 25 min Generalize d anxiety disorder 96364737 F41.1 pt agrees to continue with her counselor to discuss issues especially her wt and eating compulsion . declines medication at this time. NO SI or HI, Spent time disussing family issues around teen age daughter Paroxysmal atrial fibrillation 700425328 I48.0 pt is followed by cardiology , remains on eliquis, flecanide and metoprolol for now. Seems to be in NSR today, no sx. Advised to consider sleep study repeat and work on wt loss. Pt wiil consider sleep evaluation Mild inter mittent asthma 826078175 J45.20 stable at this time, has proair prn Morbid obesity 952728336 E66.01 Pt will look into team assembler. Suggested lowering carbs, more protein, no meal skipping and tips to avoid night eating. Advised to try and me more active. Screening for malignant neoplasm of breast 410557601 Z12.39 [id number] Omayra rush Main Office [address] [place] [address] 12/13/2021 07:41:49 12/13/2021 11:53:08 [id number] Omayra CurielMarisela rush Telehealt h [address] [facility] [address] [place] [address] 04/08/2022 15:01:10 04/09/2022 10:56:34 Pain in right arm 035439338 M79.601 had to call into a different pharmacy, first one closed will treat for 2 days since weekend then needs in person appt, could be radicular pain, unable to tell without exam [id number] Mary Becerra MA Main Office [address] [facility] [address] [place] [address] 04/18/2022 14:48:18 04/18/2022 16:00:22 Cervical radiculitis 98177532 M54.12 will get pmr eval, and give trial of gbn -- could consider tyl 500mg 1-2 tabs up to 3x/day as well Paroxysmal atrial fibrillation 015577389 I48.0 encouraged pt to resume eliquis as per card - if too $$, then consider coumadin [id number] Hollie Aguayo Main Office [address] [facility] [address] [place] [address] 06/20/2022 13:57:16 06/20/2022 15:17:51 Adult health examination 916848475 Z00.00 Pt has concerns about her weight and is under stress with family and work but stable at this time. Social and family history reviewed. Immunizati ons reviewed, advised annual flu shot, due for Tdap, covid booster. She will do appt at the pharmacy. She is not up to date on dental and eye providers, mammogram due, mobile device engineer due Reviewed diet and exercise at length Generalize d anxiety disorder 38507750 F41.1 pt agrees to continue with her counselor to discuss issues especially her wt and eating compulsion . declines medication at this time. NO SI or HI, Spent time discussing family issues Paroxysmal atrial fibrillation 266386936 I48.0 pt is followed by cardiology , remains on eliquis, flecanide and metoprolol for now. Seems to be in NSR today, no sx. Advised to consider sleep study repeat and work on wt loss. Pt will consider sleep evaluation Mild inter mittent asthma 411217634 J45.20 stable at this time, has proair prn Morbid obesity 808418007 E66.01 Pt will look into team assembler. Suggested lowering carbs, more protein, no meal skipping and tips to avoid night eating. Advised to try and me more active. Screening for malignant neoplasm of breast 677396597 Z12.39 Body mass index 40+ - severely obese 209046460 Z68.43 pt would like to see team assembler, will do a referral [id number] Cabrera Mondragon PA-C Main Office [address] [facility] [address] [facility] [place] [address] 09/26/2022 15:38:56 09/26/2022 16:43:10 Mild intermittent asthma 707466565 J45.20 rec cont montelukas t as dir, advised pt on how to use flovent x few wks - when feeling better can stop, but cont alb 5-30min ac exercise in future Paroxysmal atrial fibrillation 885549939 I48.0 cont meds, f/u c card as dir Obstructiv e sleep apnea syndrome 09123446 G47.33 seen by sleep med earlier today, will get updated sleep study Dyspnea 832709426 R06.00 negative cardiac w/u - ? d/t asthmatic bronchitis / post viral syndrome vs deconditio ashlee / obesity -- check probnp Impaired f asting glycemia 364247298 R73.01 Fatigue 29292113 R53.83 Pain of le ft hip joint 9320949370 29885 M25.552 check xray - pain x several months - r/o djd - if sig, then get ortho eval [id number] Cabrera Mondragon PA-C Telehealt [facility] [address] [facility] [address] [facility] [place] [address] 12/04/2022 08:29:26 12/04/2022 10:25:23 Cough 96896435 R05.9 rec celine or mucinex, suspect pnd == sinusitis - see below Acute sinusitis 90300704 J01.90 rec cont ns spray prn, consider warm washcloth to side of neck recommend probiotics while on abx Acute conjunctivitis [id number] H10.33 she left her contacts in for ~ 48 hours - suspect corneal ulceration - strongly encouraged pt to see her eye md, meanwhile will rx c abx eye ointment [id number] Cabrera Mondragon PA-C [facility] [address] [facility] [address] [place] [address] 01/08/2023 15:46:57 01/08/2023 16:25:29 Urinary tract infectious disease 09928786 N39.0 pt declines giving urine sample, so will rx empiricall y c cipro cont push fluids, consider cranberry juice, also consider prn pyridium recommend probiotics while on abx Seasonal a llergic rhinitis 593124630 J30.2 rec resume singulair as dir, or consider claritin, cont prn ns spray to help lessen pndrtc next week (needs ov not TH) if cough persists [id number] Cabrera Mondragon PA-C Main Office [address] [facility] [address] [place] [address] 04/17/2023 15:26:53 04/17/2023 16:56:58 Lateral epicondylitis of left humerus [id number] 49190 M77.12 trial c TE support, cool compress prn, wrist splint o/n -- if no better call us - consider ortho for sandoval injxn Skin lesion 13444802 L98 .9 most likely epidermoid cyst - will get derm eval, ? may need to see general surgeon if they cannot remove Pain in both feet 932059 3027 [id number] M79.671 better lately, no evidence / suspicion of fx [id number] Bela Mondragon PA-C Main Office [address] [facility] [address] [place] [address] 04/19/2023 13:10:00 04/19/2023 13:40:50 Abdominal pain 45378552 R10.9 Acute abdomen, refer to emergency department . PT. refused to go by ambulance. Will drive to [facility]. Call ahead placed to [facility] ER. [id number] Lena Cifuentes LPN Main Office [address] [facility] [address] [place] [address] 04/26/2023 10:09:45 05/10/2023 16:14:02 [id number] Lan Oliver MD Main Office [address] [facility] [address] [place] [address] 07/24/2023 14:43:32 07/24/2023 15:27:47 Cough 73271942 R05.9 -in office RSV, flu, and covid are negative-d iscussed OTC interventi ons to help with a cough Acute sinusitis 07965454 J01.90 -x3 weeks of symptoms of sinus pressure, nasal congestion , cough, post nasal drip, and sore throat-guanakito al decongesta nts provide minimal relief-exp osed to other coworkers with similar symptoms-P E revealed sinus tenderness to the frontal sinus, erythemato us posterior oropharynx and nasal discharge- will start pt on augmentin x10 day course Mild inter mittent asthma 659458766 J45.20 per pt request, refill Health Concerns Section Related Observation LastModified by Organization Detai ls LastModified Time None Recorded Concern Status LastModified by Organization Details LastModified Time None Recorded Advance Directives Directive N: Payers Encounter Date Sequence Insurance Name Policy Number Policy Pollard Covered Member ID Plolard Member ID Guarantor Name 01/08/2023 1 [facility] - DIRECT CONNECTORCARE TYPE I (HMO) [id number] Steph Neal [id number] 1 Steph Neal 04/17/2023 1 [facility] - DIRECT CONNECTORCARE TYPE I (HMO) [id number] Steph Neal [id number] 1 Steph Neal 04/19/2023 1 [facility] - DIRECT CONNECTORCARE TYPE I (HMO) [id number] Steph Neal [id number] 1 Steph Neal 04/26/2023 1 [facility] - DIRECT CONNECTORCARE TYPE I (HMO) [id number] Steph Neal [id number] 1 Steph Neal 07/24/2023 1 [facility] - DIRECT CONNECTORCARE TYPE I (HMO) [id number] Steph Artis Ángel [id number] 1 Steph Neal Notes Date Note Type Note Provider Name and Address Organization Details Recorded Time 01/08/2023 text/html Patient has been having urinary Pressure and frequency . Patient has noticed spasms after urinating since Saturday. no f/c, hematuria Cabrera Mondragon PA-C [address] [address], [place], [address], [facility] 01/08/2023 16:19:43 04/17/2023 text/html pt had B foot pa in x few wks, up until recently - now resolvedcurr c/o L elbow painno trauma to feet or LUEdoes sleep c L wrist flexed occ.also c/o lesion on her back - boyfriend is concerned, no pus dc, no f/c Cabrera Mondragon PA-C [address] [facility] [address], [place], [address], [facility] 04/20/2023 13:37:29 04/19/2023 text/html 47 year old fema le c/o acute R. mid to lower abdominal pain started yesterday morning and gradually worsened in severity. Non radiating, no nausea. NO fever, chills. NO prior h/o similar pain, renal calculi. Urine with hemolyzed trace of blood and ketones. Bela Mondragon PA-C [address] [facility] [address], [place], [address], [facility] 04/19/2023 14:39:26 04/26/2023 text/html Hospitalization Contact RecordReported bypatient.Follow UpHospital: [facility]; admit date: (Please enter in format 'MM/DD/YYYY') (04/19/2023); date of discharge: (Please enter in format 'MM/DD/YYYY') (04/23/2023); date of contact: (Please enter in format 'MM/DD/YYYY') (04/26/2023)Notes:[facility] covered inpatient stay? noTOC with in 48 working hours? yes HCP on file? yesMOLST on file? noDischarge Summary available? yes Pt presented to [facility] ED on 04/19/23 due [...] hrs prn pain (30 tabs). ANJU Sewell, [facility] 05/10/2023 16:14:01 07/24/2023 text/html Sinusitis/Allerg yRepor power bypatient.Location:[facility] Associated Symptoms:no fever; no nausea or [...] sob, or chest pain. 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 Requests RSV + flu testing. Home covid test is negative. Lan Oliver MD [address] [address], [place], [address], [facility] 07/30/2023 09:10:02 OBGyn Episode No OBEpisode recorded.
== END 2024-10-26 15:29 | disposition home or self-care (01) ==
PROVIDERS: Visit Provider Internal Medicine Cardiovascular Disease
DX: I48.0 Paroxysmal atrial fibrillation (principal)
CPT/HCPCS: 93010; 99214

== ENCOUNTER → 2024-10-26 14:47 | Outpatient (BNVA) | payer OTHER, SELFPAY | PROVIDERS: Visit Provider Internal Medicine Cardiovascular Disease | DX: Z01.810 Encounter for preprocedural cardiovascular examination (principal); I48.0 Paroxysmal atrial fibrillation; Z98.890 Other specified postprocedural states; Z79.01 Long term (current) use of anticoagulants | CPT/HCPCS: 93005; 99212 ==

== ENCOUNTER 2024-11-12 15:08 | Outpatient (AMB) | payer OTHER, SELFPAY ==
--- NOTE | 2024-11-12 14:57 | A.OFFVIS_ITS ---
Intake Visit Reasons: Pre-Rt Knee 11/18/24 NE Allergies No Known Allergies [No Known Allergies*] Allergy (Verified 08/11/24 15:45) HPI HPI Pre-Rt Knee 11/18/24 NE: Details: Ms. Nael is a 49-year-old female who presents to the office today for her preoperative history and physical exam pending right knee arthroscopy tentatively scheduled for 11/18/[address] Valdez. Patient denies any drug allergies. Patient does have a past medical history significant for AFib and is on Eliquis. Dr. Noguera saw the patient preoperatively for clearance and instructed to stop Eliquis 3 days prior to surgery. Patient is additionally on Wegovy for weight loss. GLP 1 should be stopped 7 days prior to surgery. [facility] Medical History Sleep apnea, obstructive Asthma Atrial fibrillation Surgical History History of appendectomy Family History Other Adopted Social History Household Members: Family Housing: Apartment Do you presently have visiting nurse or other home services: No Alcohol intake: current Alcohol intake frequency: holidays/special occasions only Comment: Socially Patient Tobacco Use Status: Former Tobacco user Cigarette Packs Per Day: 0.5 Years Smoked: 15 +/- e-Cigarette/Vaping Use: Never Used Second Hand Smoke Exposure: Yes service: No Current occupational status: employed 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 Cognitive needs: No Hearing needs: No Vision needs: No Review of Systems Const All systems reviewed & are unremarkable except as noted in HPI and below Physical Exam Const General: cooperative, healthy appearing, comfortable, no acute distress, well developed, alert and awake Orientation/consciousness: patient oriented x3 HEENT Head: Yes normal to inspection, Yes normocephalic and Yes atraumatic Eyes General: appearance normal, both eyes and all related structures Neck Neck: Yes normal visual inspection and Yes no lymphadenopathy Resp Effort & Inspection: normal respiratory effort and able to speak in complete sentences Cardio Rate: regular rate Peripheral pulses: Peripheral pulses 2+ throughout GI Inspection: Yes normal to inspection Palpation (GI): Soft to palpation Skin General skin exam: no rashes or lesions noted Neuro General: patient oriented x3 Extrem Other: Left knee with mild effusion tenderness to palpation medial compartment. Positive medial J Carlos's. Psych Mental Status: mental status grossly normal Assessment & Plan Assessment & Plan (1) Degenerative tear of meniscus of right knee: Code(s): M23.306 - Other meniscus derangements, unspecified meniscus, right knee Category: Medical Plan Ms. eNal is a 49-year-old female who presents to the office today for her preoperative history and physical exam pending right knee arthroscopy tentatively scheduled for 11/18/[address] Valdez. Patient denies any drug allergies. Patient does have a past medical history significant for AFib and is on Eliquis. Dr. Noguera saw the patient preoperatively for clearance and instructed to stop Eliquis 3 days prior to surgery. Patient is additionally on Wegovy for weight loss. GLP 1 should be stopped 7 days prior to surgery. Post operative medications were sent to the pharmacy,?hydrocodone,?while in the office today. The patient was instructed that?she?should obtain the prescription prior to surgery but should not consume until after the procedure; as these should only be taken for postoperative pain management. Should the patient take these medications before surgery, a refill will not be sent to the pharmacy until their scheduled refill date.?? hydrocodone-acetaminophen 5-325 mg (Vicodin) PO Q8H PRN, quantity 28 tabs for 7 days? I discussed in detail the procedure and what to expect pre and post operatively. We discussed the risks, benefits and alternatives to the surgery as well as the rehabilitation course. The risks; which include, but are not limited to infection, bleeding, nerve injury, ongoing pain, swelling, and stiffness, perioperative risk of injury to bones and soft tissues, and blood clots. I?ve answered all questions and with their understanding they have consented to move forward with right knee arthroscopy with Dr. Valdez. Medications: New hydrocodone-acetaminophen 5-325 mg Partial Fill upon patient request. 1 tab PO Q8H PRN 21 tabs 0RF pain Coding Level of Care Code Global (01330) Diagnoses Degenerative tear of meniscus of right knee M23.306
== END 2024-11-12 16:06 | disposition home or self-care (01) ==
LOC: HO.HOS 15:09
PROVIDERS: Visit Provider Physician Assistant
DX: M23.306 Other meniscus derangements, unspecified meniscus, right knee (principal)
CPT/HCPCS: 99024

== ENCOUNTER → 2024-11-12 15:08 | Outpatient (BNVA) | payer OTHER, SELFPAY | PROVIDERS: Visit Provider Physician Assistant | DX: M23.306 Other meniscus derangements, unspecified meniscus, right knee (principal) | CPT/HCPCS: 99212 ==

== ENCOUNTER 2024-11-18 05:56 | Day surgery (SDC) | payer OTHER, SELFPAY ==
--- OUTSIDE RECORDS SUMMARY | 2024-10-29 08:01 | XMS_ITS | Data Portability ---
Author Organization [place] - [facility], Allergy Address [address] [place] [address] Assessment Encounter Date Assessment Date Assessment LastModified [...] Recorded Time Impacted cerumen in right ear [id number] 34674 Active 2016 Impacted cerumen, right ear; Note: Date Diagnosed : 10/31/2016 4:26 PM (H61.21) Not Available [facility] 4 02:25:57 Acute tonsillit is 90038494 Active 2016 Acute tonsillit is, unspecifi ed; Note: Date Diagnosed : 10/31/2016 4:28 PM (J03.90) Not Available [facility] 4 02:26:11 Otalgia of right ear 0938984327 Active 2016 Otalgia, right ear; Note: Date Diagnosed : 10/31/2016 4:26 PM (H92.01) Not Available [facility] 4 02:25:51 Snoring 19473377 Active 2023 MINNIE CHRIS MD [address] [place] [address], [facility] [place], [address] , [facility] - [facility] 4 15:20:59 Problem Notes None recorded. Procedures Surgical History Date Name Laterality Status Provider Name and Address Organization Details Recorded Time Appendectomy completed Mandi Sullivan - [facility] 04/17/2024 14:56:12 Imaging Results Imaging Date Name Status LastModified by [facility] Details LastModified Time 10/31/2023 sleep study, diagnostic (PROC) completed [email or web address] Information not available 04/17/2024 15:15:49 Procedure Notes None recorded. Medical Equipment None Reported. Allergies Allergen ID Allergen Name Allergen Category Reaction Reaction Severity Criticality Documentation Date Start Date Code Code System Note Provider Name and Address Organization Details Recorded Time 14901 clindamyc in hydrochlo ride medicatio n other Not available Not available 01/07/2024 88349 RxNorm React ion: unkno wn, unspe cifie d;; Not Available [facility] 4 00:55:38 Medications Name Sig Start Date Stop Date Status Note LastModified by Organization Details LastModified Time acetamino phen 325 mg tablet TAKE 2 TABLETS BY MOUTH EVERY 4 HOURS NEEDED FOR PAIN active Not Available Not Available No t Available clindamyc in HCl 300 mg capsule 11/01 completed Medicati on ID: [id number] D uration Value: 14 Brand Name: clindamy [...] Updated DateTime 04/17/2024 172.72 cm 50.9 kg/m2 909701.44 g Mandi Castro [place] - [facility] 04/17/2024 15:03:16 Social History Question Answer Notes LastModified by Organizat ion Details LastModified Time Tobacco Smoking Status Former Smoker Mandi deluna [place] - [facility] 04/17/2024 14:57:07 What Is Your Level Of Alcohol Consumption? Occasional [email or web address] Information not available 04/17/2024 Sex: Unknown Functional [...] SNOMED-CT Code Diagnosis ICD10 Code Diagnosis Note 13143 MINNIE CHRIS MD [facility] [address] [address] 04/17/2024 14:13:00 04/17/2024 15:22:11 Snoring 00090439 R06.83 Health Concerns Section Related Observation LastModified by Organization Detai ls LastModified Time None Recorded Concern Status LastModified by Organization Details LastModified Time None Recorded Advance Directives Directive None Recorded Payers Encounter Date Sequence Insurance Name Policy Number Policy Pollard Covered Member ID Pollard Member ID Guarantor Name 04/17/2024 1 [facility] M[employer] (PPO) [id number] Steph Neal [id number] 1 Steph Neal Notes Date Note Type Note Provider Name and Address Organization Details Recorded Time 04/17/2024 text/html weight loss program estarvey50/1/[address] [place] 46AHI 2.7 just started wegovy +snoringno hx of tonsil infections MINNIE CHRIS MD [address] [place] [address], [id number] - [facility] 04/17/2024 15:22:03 OBGyn Episode No OBEpisode recorded.
--- OUTSIDE RECORDS SUMMARY | 2024-10-29 08:01 | XMS_ITS | Data Portability ---
Author Organization [facility], Main Office Address [address] [place] [address] Care Team Providers Care Nuclear Weapons Custodian Name Role Phone MINNIE CHRIS Letter Of Credit Clerk [facility] Pharmacy Director HODA RAHMAN Orthopedic Surgeon [phone] [facility] Urologist [phone] JESS DELA CRUZ Stitcher Operator MOLLY LAM Primary Care Provider Assessment Encounter Date Assessment Date Assessment LastModified by Organization Details LastModified Time 01/08/2023 01/08/2023 This service was provided using telemedicine. Patient consented to video & audio visit Patient was located in the [facility]. Provider was located in the office. [...] DO Not Attach Compendium, Do Not Delete/merge, [id number] 3 15:18:01 rapid flu (A+B) 2022 023 CARMELO In-Office Order, Internal Use Only DO Not Attach Compendium DO Not Attach Compendium, Do Not Delete/merge, [id number] 3 15:28:10 rsv (respi ratory syncyt ial virus) , rapidsoniya al 2022 023 CARMELO In-Office Order, Internal Use Only DO Not Attach Compendium DO Not Attach Compendium, Do Not Delete/merge, [id number] 3 15:44:39 urinal ysis, dipsti ck 2022 023 [email or web address] In-Office Order, Internal Use Only DO Not Attach Compendium DO Not Attach Compendium, Do Not Delete/merge, [id number] 3 14:39:10 Referral dermat ologis t referr al 2022 023 [facility], [address], [address], [place], [address], 4 10:36:34 Procedures None record ed. Surgeries None record ed. Imaging None record ed. Medication Orders Crispin tin 875 mg-125 mg tablet 2022 023 [facility] #[id number], [address] [place], [id number], 3 15:18:13 benzon atate 100 mg capsul e 2022 023 [facility] #[id number], [address] [place], [id number], 3 15:18:16 albute rol sulfat e HFA 90 mcg/ac tuatio n aeroso l inhale r 2022 023 [facility] #[id number], [address] [place], [id number], 15:18:13 ciprof loxaci n 250 mg tablet 2022 023 [id number], [address], [place], [place], [id number], 15:55:22 Patient TargetsNo targets recorded. Patient Instructions Encounter Date Encounter Id Patient Instructions Last Modified By Organization Details Last Modified Time 01/08/2023 [id number] Follow up if no improvement or if symptoms worsen. [email or web address] Not available 01/08/2023 16:19:02 04/17/2023 [id number] tennis elbow: care instructions pmadden Not available 04/17/2023 16:48:46 tennis elbow: exercises pmadden Not available 04/17/2023 16:48:47 Follow up if no improvement or if symptoms worsen. pmadden Not available 04/17/2023 16:53:08 04/26/2023 [id number] 05/07/23- message left at home number to return my call, offer a hospital follow up as well as Pt is also due for a physical. 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 Referral for S kin lesion Referring Physician: Cabrera Mondragon, Internal Medicine, Encounter Date: 04/17/2023 Results Created Date Observation Date Name Description Value Unit Range Abnormal Flag Note LastModifiedBy Organization Detail LastModifiedTime 04/19/2004/19/2023 urina lysis , dipst ick Leukocytes Negati ve Not Available In-Office Order Internal Use Only DO Not Attach Compendium DO Not Attach Compendium, Do Not Delete/merge, [id number] 04/19/2023 13:29:11 04/19/2004/19/2023 urina lysis , dipst [...] 04/19/2023 urina lysis , dipst ick Specific [place] 1.005 Not Available In-Off ice Order Internal [...] DO Not Attach Compendium, Do Not Delete/merge, [id number] 04/19/2023 13:29:11 04/19/20 23 04/19/2023 urina lysis , dipst ick Appearance Clear Not Available In-Offi ce Order Internal Use Only DO Not Attach Compendium DO Not Attach Compendium, Do Not Delete/merge, [id number] 04/19/2023 13:29:11 04/19/20 23 04/19/2023 urina lysis , dipst ick Color Yellow Not Available In-Office Order Internal Use Only DO Not Attach Compendium DO Not Attach Compendium, Do Not Delete/merge, [id number] 04/19/2023 13:29:11 07/24/20 23 07/24/2023 rsv (resp irato ry syncy tial virus ), rapid , nasop haryn geal RSV, RAPID negati ve Not Available In-Office Order Internal Use Only DO Not Attach Compendium DO Not Attach Compendium, Do Not Delete/merge, [id number] 07/24/2023 15:19:04 07/24/20 23 07/24/2023 rapid flu (A+B) Flu A negati ve Not Available In-Office Order Internal Use Only DO Not Attach Compendium DO Not Attach Compendium, Do Not Delete/merge, [id number] 07/24/2023 14:52:40 07/24/20 23 07/24/2023 rapid flu (A+B) Flu B negati ve Not Available In-Office Order Internal Use Only DO Not Attach Compendium DO Not Attach Compendium, Do Not Delete/merge, [id number] 07/24/2023 14:52:40 07/24/20 23 07/24/2023 rapid SARS CoV 2 Ag, QL IA, respi rator y speci men RAPID SARS COV 2 negati ve Not Available In-Office Order Internal Use Only DO Not Attach Compendium DO Not Attach Compendium, Do Not Delete/merge, [id number] 07/24/2023 14:52:37 05/21/2005/21/2023 upper endos copy proce dure (EGD) (PROC ) No observ ation record ed. [email or web address] [facility] (Medical Records) [address] [place], [address], 05/21/2023 11:11:15 05/22/20 23 05/21/2023 US, abdom en, compl ete No observ ation record ed. [email or web address] [facility] (Medical Records) [address] [place], [address], 05/22/2023 12:50:47 Result Notes None recorded. Problems Name Problem SNOMED Code Status Onset Date Resolution Date Notes Provider Name and Address Organization Details Recorded Time Inflamma tory disorder of extremit y 701102304 Completed 201103/09/2014 IMPRESSI ON: REVIEWED XRAY WITH ALPHONSE JOHNSON EXAM CONSISTE NT WITH ACHILLES TENDONIT IS, AND SWELLING NO MASS FELT; RECORDED 03/25/20 12 9:59AM BY ELIZABETH DRAKE MA, ANNOTATI ON/SAMINA Mondragon PA-C [address], [place], [address], [facility] [place] 6 12:28:32 Acute bronchit is [id number] Completed 201103/09/2014 RECORDED 03/25/20 12 9:59AM BY ELIZABETH DRAKE MA, ANNOTATI ON/ADDEN BAKARI Mondragon PA-C [address], [place], [address], [facility] [place], [place] 6 12:28:31 Acute pharyngi tis [id number] Completed 201203/09/2014 IMPRESSI ON: + RAPID STREP, POSSIBLE RIGHT EARLY PERITONS ILLAR ABSCESS, TX WITH ABX/FLUI DS/NSAID S, IF WORSENIN G PAIN OR DIFFICUL TY SWALLOWI NG CALL OFFICE FOR ENT APPT.; RECORDED 12/16/19 13 10:04AM BY BARBARA ARTIS ON/ADDEN LUIS FERNANDO Jimenez, [facility] 6 15:19:04 Tobacco user [id number] Completed 201305/29/2014 RECORDED 01/17/20 14 10:42AM BY OMAYRA Saleem MD, OFFICE VISIT Bela Mondragon PA-C [address], [place], [address], [facility] 6 12:28:31 Patient status finding [id number] Completed 06/29/2016 LUIS FERNANDO Aadms, [facility] 6 15:18:43 Backache [id number] Completed 06/29/2016 LUIS FERNANDO Adams, [facility] 6 15:18:46 Urinary incontin ence 752730064 Active Bela Mondragon PA-C [address] [facility] [address], [place], [address], [facility] 6 12:28:32 Cough 66594320 Completed 201103/09/2014 RECORDED 03/25/20 12 9:58AM BY ELIZABETH DRAKE MA, ANNOTATI ON/ADDEN DUM LUIS FERNANDO Adams, [facility] 6 15:19:12 Degenera tion of interver tebral disc [id number] Completed 201103/09/2014 RECORDED 03/25/20 12 9:59AM BY ELIZABETH DRAKE MA, ANNOTATI ON/ADDEN DUM Bela CHOE-C [address] [facility] [address] [facility] [address], [place], [address], [facility] 6 12:28:32 Dizzines s and giddines s 502053988 Completed 201203/09/2014 IMPRESSI ON: NORMAL EXAM; RECORDED 09/01/19 13 1:16PM BY CHERIE HERRERA MA, ANNOTATI ON/ADDEN DUM Bela CHOE-C [address], [place], [address], [facility] 6 12:28:32 Edema 403862373 Completed 201103/09/2014 IMPRESSI ON: BILATERA L, LUNGS CLEAR, C/W DEPENDEN T EDEMA, HAS TAKEN HCTZ IN THE PAST WITH [facility] ENT, ALSO REVIEWED DIET/LEG ELEVATIO N/WEIGHT LOSS/COM PRESSION STOCKING S; RECORDED 06/12/20 12 9:04AM BY BARBARA ARTIS ON/ADDEN DUM Brenda green MA null, [facility] 6 15:18:56 Elevated blood-pr essure reading without diagnosi s of hyperten yue 780136791 Active Bela Mondragon PA-C [address] [facility] [address], [place], [address], [facility] 6 12:28:32 Adult health examinat ion Completed 201103/09/2014 IMPRESSI ON: PAP IS UTD, PT TO START EXERCISI NG; RECORDED 07/08/20 12 1:24PM BY BARBARA GUIDRY ON/ADDEN DUM Bela Mondragon PA-C [address], [place], [address], [facility] 6 12:28:32 Pure hypercho lesterol emia 965253497 Completed 01/25/2017 Omayra garrett null, [facility] 7 14:59:23 Knee pain Completed 201203/09/2014 IMPRESSI ON: PT IN A MOMIN TO LEAVE SO DID NOT EXAMINE KNEES. WILL START WITH X-RAY SINCE MAY HAVE DJD. F/U WITH PCP FOR FURTHER ASSESSME NT. 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 SO IT COULD BE THIS.; RECORDED 05/09/20 13 10:00AM BY BARBARA GUIDRY ON/ADDEN DUM Omayra deluna, [facility] 9 15:55:45 Lipoma of skin and subcutan eous tissue (excludi ng face) 095350976 Completed 201103/09/2014 IMPRESSI ON: BACK; RECORDED 06/12/20 12 9:04AM BY BARBARA ARTIS ON/ADDEN DUM Bela Mondragon PA-C [address], [place], [address], [facility] 6 12:28:31 Low back pain [id number] Completed 201203/09/2014 RECORDED 09/05/19 13 10:23AM BY CHERIE HERRERA MA, BARBARA ON/ADDEN DUM [facility]a [facility] [address] [facility] [address] [facility] [address], [place], [address], [facility] 6 12:28:32 Lumbar sprain 599892842 Completed 200903/09/2014 RECORDED 11/12/19 10 9:28AM BY BARBARA SWEENEY ON/ADDEN DUM [facility] [address] [facility] [address], [place], [address], [facility] 6 12:28:32 Recurren t major depressi ve episodes 860114474 Active [facility]a [facility] [address] [facility] [address], [place], [address], [facility] 6 12:28:31 Malaise and fatigue 302834037 Completed 200903/09/2014 IMPRESSI ON: LONG TALK RE WEIGHT, ADDICTIV E EATING BEHAVIOR S, WILL OCNTINUE COUNSELI NG AND TRY TO INCREASE EXERCISE . SEES DR MORALES TOO. DOES NOT FEEL SHE NEEDS MEDS FOR DEPRESSI ON, FEELS WELL MOSTLY.; RECORDED 11/12/19 10 9:28AM BY BARBARA SWEENEY ON/ADDEN DUM [facility] [address] [facility] [address] [facility] [address], [place], [address], [facility] 6 12:28:32 Administ ration of measles and mumps and rubella vaccine Completed 201103/09/2014 RESOLVED DATE: 06/13/20 12; IMPRESSI ON: NEG MUMPS TITER, NEEDS REVACCIN ATION; RECORDED 06/13/20 12 12:55PM BY OMAYRA Saleem MD, OFFICE VISIT Bela CHOE-C [address], [place], [address], [facility] 6 12:28:32 Nausea [id number] Completed 201103/09/2014 IMPRESSI ON: RULE OUT PREGNANC Y; RECORDED 07/08/20 12 1:24PM BY BARBARA GUIDRY ON/ADDEN DUM Bela CHOE-C [address] [facility] [address], [place], [address], [facility] 6 12:28:32 Neck pain [id number] Completed 01/25/2017 Omayra garrett [facility] 7 14:59:05 Lymphedeunice nevarez [id number] Completed 201103/09/2014 RECORDED 03/25/20 12 9:59AM BY ELIZABETH DRAKE MA, CHINTANATI ON/ADDEN DUM Bela CHOE-C [address], [place], [address], [facility] 6 12:28:31 Obesity [id number] Completed 01/08/2020 Bela CHOE-C [address], [place], [address], [facility] 0 17:12:44 Osteoart hritis of knee 291825106 Active Bela CHOE-C [address], [place], [address], [facility] 6 12:28:32 Otalgia 46435576 Completed 201103/09/2014 RECORDED 03/25/20 12 9:59AM BY ELIZABETH DRAKE MA, BARBARA ON/ADDEN DUM [facility] [address] [facility] [address], [place], [address], [facility] 6 12:28:31 Synoviti s/tenosy novitis - hand [id number] Completed 200903/09/2014 IMPRESSI ON: POSSIBLE CARPAL TUNNEL SYNDROME ; RECORDED 11/12/19 10 9:28AM BY BARBARA SWEENEY ON/ADDEN DUM [facility] [address] [facility] [address], [place], [address], [facility] 6 12:28:32 Joint pain in ankle and foot Completed 200903/09/2014 IMPRESSI ON: FXT FIBULA AND OTHER IN 01/01, STILL WITH AIN EXPECTED , TX WITH ULTRAM SINCE NO CONTRAIN DICATION S AND USE MOTRIN 800MG TID WITH FOOD; RECORDED 11/12/19 10 9:27AM BY BARBARA SWEENEY ON/ADDEN DUM [facility] [address] [facility] [address], [place], [address], [facility] 6 12:28:32 Pain in thoracic spine 383862742 Completed 200903/09/2014 IMPRESSI ON: MUSCULAR , STRETCH; RECORDED 11/12/19 10 9:27AM BY BARBARA SWEENEY ON/ADDEN DUM Bela WAFU PA-C [address] [facility] [address], [place], [address], [facility] 6 12:28:32 Skin sensatio n disturba are [id number] Completed 201103/09/2014 IMPRESSI ON: AT SITE OF PREVIOUS CONTUSIO N FROM ABOUT A MONTH AGO, WITHOUT PAIN OR WITHOUT SIGNS OF CELLULIT IS, FOR NOW WILL MONITOR; RECORDED 06/12/20 12 9:03AM BY BARBARA ARTIS ON/ADDEN DUM Bela Mondragon PA-C [address], [place], [address], [facility] 6 12:28:32 Immuniza tion refused Completed 201203/09/2014 RECORDED 05/09/20 13 10:00AM BY BARBARA GUIDRY ON/ADDEN DUM Bela Mondragon IL-C [address], [place], [address], [facility] 6 12:28:32 Plantar fascial fibromat osis 78883916 Completed 201103/09/2014 RECORDED 06/12/20 12 9:04AM BY BARBARA ARTIS ON/ADDEN DUM Bela Mondragon IL-C [address] [facility] [address], [place], [address], [facility] 6 12:28:32 Pyelonep hritis [id number] Completed 201103/09/2014 IMPRESSI ON: SEE ABOVE, PT TO FINISH BACTRIM TO ER IF CANNOT TOLERATE PO WITH VOMITING OR FEELS DIZZY.., PT WILL CALL AND CHECK WITH LEAD DATA ARCHITECT TOMORROW ABOUT MAKING SURE SENSITIV ITIES MATCH BACTRIM, FLUIDS REST; RECORDED 03/25/20 12 9:59AM BY ELIZABETH DRAKE MA, BARBARA ON/ADDEN DUM Bela Mondragon IL-C [address], [place], [address], [facility] 6 12:28:31 Hypertro phic conditio n of skin 46460910 Completed 201203/09/2014 IMPRESSI ON: AFTER WEIGHT LOSS. GETS INTERTRI GO FUNGAL INFECTIO NS DUE TO THIS; RECORDED 05/09/20 13 10:00AM BY BARBARA GUIDRY ON/ADDEN DUM Bela Mondragon PA-C [address] [facility] [address], [place], [address], [facility] 6 12:28:32 Influenz a vaccine needed [id number] 06 Completed 201103/09/2014 RECORDED 06/12/20 12 9:13AM BY PRATIBHA SILVEIRA, OFFICE VISIT Bela Mondragon PA-C [address] [facility] [address], [place], [address], [facility] 6 12:28:32 Pain in limb [id number] Completed 201103/09/2014 IMPRESSI ON: PT TO SET UP APPT; RECORDED 03/25/20 12 9:59AM BY ELIZABETH DRAKE MA, ANNOTATI ON/ADDEN DUM Bela Mondragon PA-C [address] [facility] [address], [place], [address], [facility] 6 12:28:32 Inflamma tion of sacroili ac joint [id number] Completed 201103/09/2014 IMPRESSI ON: RIGHT SIDED PAIN, CHANGE TO IBUPROFE N WITH FOOD AND TYLENOL WITH CODEINE AT NIGHT. PE 05/[address] UP PT HAS PAPERWOR K; RECORDED 07/08/20 12 1:24PM BY JULEE NESBITT I, BARBARA ON/ADDEN DUM Bela Mondragon PA-C [address] [facility] [address], [place], [address], [facility] 6 12:28:32 Morbid obesity 633388467 Active Bela Mondragon PA-C [address] [facility] [address], [place], [address], [facility] 6 12:28:31 Shoulder joint pain 593543072 Completed 201103/09/2014 IMPRESSI ON: SOUNDS LIKE BURSISIT PT TO SEE ALANNA Chavez [facility] FOR INJECTIO N; RECORDED 03/25/20 12 9:59AM BY ELIZABETH DRAKE MA, ANNOTATI ON/ADDEN DUM Bela MOCKC [address] [facility] [address], [place], [address], [facility] 6 12:28:32 Chronic sinusiti s 60133275 Completed 201103/09/2014 RECORDED 03/25/20 12 9:59AM BY ELIZABETH DRAKE MA, ANNOTATI ON/ADDEN DUM Bela Mondragon PA-C [address], [place], [address], [facility] 6 12:28:31 Administ ration of diphther ia and tetanus vaccine Completed 201103/09/2014 RECORDED 07/08/20 12 1:24PM BY JULEE NESBITT I, CHINTANATI ON/ADDEN DUM Bela Mondragon PA-C [address], [place], [address], [facility] 6 12:28:32 Urinary tract infectio us disease 04853810 Completed 200803/09/2014 RECORDED 12/07/19 09 8:54AM BY BRENDA STEINER MA, BARBARA ON/ADDEN DUM Bela Mondragon PA-C [address], [place], [address], [facility] 6 12:28:31 Wheezing [id number] Completed 201103/09/2014 RECORDED 03/25/20 12 9:59AM BY ELIZABETH DRAKE MA, ANNOTATI ON/ADDEN DUM Bela Mondragon PA-C [address], [place], [address], [facility] 6 12:28:32 Inflamma tory disorder of extremit y 784342342 Completed 201104/05/2014 IMPRESSI ON: REVIEWED XRAY WITH ALPHONSE JOHNSON EXAM CONSISTE NT WITH ACHILLES TENDONIT IS, AND SWELLING NO MASS FELT; RECORDED 03/25/20 12 9:59AM BY ELIZABETH DRAKE MA, ANNOTATI ON/ADDEN DUM Bela Mondragon PA-C [address], [place], [address], [facility] 6 12:28:32 Acute bronchit is 83235137 Completed 201104/05/2014 RECORDED 03/25/20 12 9:59AM BY ELIZABETH DRAKE MA, BARBARA ON/ADDEN DUM Bela CHOE-C [address], [place], [address], [facility] 6 12:28:31 Acute pharyngi tis 158248969 Completed 201204/05/2014 IMPRESSI ON: + RAPID STREP, POSSIBLE RIGHT EARLY PERITONS ILLAR ABSCESS, TX WITH ABX/FLUI DS/NSAID S, IF WORSENIN G PAIN OR DIFFICUL TY SWALLOWI NG CALL OFFICE FOR ENT APPT.; RECORDED 12/16/19 13 10:04AM BY BARBARA ARTIS ON/ADDEN DUM Brenda green MA null, [facility] 6 15:19:04 Cough [id number] Completed 201104/05/2014 RECORDED 03/25/20 12 9:58AM BY ELIZABETH DRAKE MA, ANNOTATI ON/ADDEN DUM Brenda green MA [facility], [facility] 6 15:19:12 Degenera tion of interver tebral disc 94991341 Completed 201104/05/2014 RECORDED 03/25/20 12 9:59AM BY ELIZABETH DRAKE MA, BARBARA ON/ADDEN DUM Bela CHOE-C [address], [place], [address], [facility] 6 12:28:32 Dizzines s and giddines s 758229037 Completed 201204/05/2014 IMPRESSI ON: NORMAL EXAM; RECORDED 09/01/19 13 1:16PM BY CHERIE HERRERA MA, BARBARA ON/ADDEN DUM Bela Mondragon PA-C [address], [place], [address], [facility] 6 12:28:32 Edema 834021256 Completed 201104/05/2014 IMPRESSI ON: BILATERA L, LUNGS CLEAR, C/W DEPENDEN T EDEMA, HAS TAKEN HCTZ IN THE PAST WITH [facility] ENT, ALSO REVIEWED DIET/LEG ELEVATIO N/WEIGHT LOSS/COM PRESSION STOCKING S; RECORDED 06/12/20 12 9:04AM BY BARBARA ARTIS ON/ADDEN DUM Brenda green MA null, [facility] 6 15:18:56 Adult health examinat ion Completed 201304/05/2014 IMPRESSI ON: PAP IS OVERDUE, PT WILL ARRANGE THIS, PT HAS AN IUD IN PLACE. PT WILL WORK ON DIET AND EXERCISE .; RECORDED 01/17/20 14 10:22AM BY BARBARA ARTIS ON/ADDEN DUM Bela CHOE-C [address], [place], [address], [facility] 6 12:28:32 Knee pain Completed 02/02/2019 [facility] 9 15:55:45 Lipoma of skin and subcutan eous tissue (excludi ng face) [id number] Completed 201104/05/2014 IMPRESSI ON: BACK; RECORDED 06/12/20 12 9:04AM BY BARBARA ARTIS ON/ADDEN DUM Bela [facility]OCKC [address], [place], [address], [facility] 6 12:28:31 Low back pain 829816492 Completed 201204/05/2014 IMPRESSI ON: X 1 DAY, OCCURED WHILE BENDING OVER; RECORDED 09/05/19 13 10:23AM BY CHERIE HERRERA MA, BARBARA ON/ADDEN DUM Bela CHOE-C [address], [place], [address], [facility] 6 12:28:32 Lumbar sprain 135277836 Completed 200904/05/2014 RECORDED 11/12/19 10 9:28AM BY BARBARA SWEENEY ON/ADDEN DUM Bela Mondragon [facility] [address] [facility] [address], [place], [address], [facility] 6 12:28:32 Malaise and fatigue 039273399 Completed 200904/05/2014 IMPRESSI ON: LONG TALK RE WEIGHT, ADDICTIV E EATING BEHAVIOR S, WILL OCNTINUE COUNSELI NG AND TRY TO INCREASE EXERCISE . SEES DR MORALES TOO. DOES NOT FEEL SHE NEEDS MEDS FOR DEPRESSI ON, FEELS WELL MOSTLY.; RECORDED 11/12/19 10 9:28AM BY BARBARA SWEENEY ON/ADDEN DUM Bela [facility] [address] [facility] [address], [place], [address], [facility] 6 12:28:32 Administ ration of measles and mumps and rubella vaccine Completed 201104/05/2014 RESOLVED DATE: 06/13/20 12; IMPRESSI ON: NEG MUMPS TITER, NEEDS REVACCIN ATION; RECORDED 06/13/20 12 12:55PM BY OMAYRA Saleem MD, OFFICE VISIT Bela Mondragon [facility] [address] [facility] [address], [place], [address], [facility] 6 12:28:32 Nausea [id number] Completed 201104/05/2014 IMPRESSI ON: RULE OUT PREGNANC Y; RECORDED 07/08/20 12 1:24PM BY BARBARA GUIDRY ON/ADDEN DUM [facility] [address] [facility] [address], [place], [address], [facility] 6 12:28:32 Lymphe[place] nv 204048359 Completed 201104/05/2014 RECORDED 03/25/20 12 9:59AM BY ELIZABETH DRAKE MA, CHINTANATI ON/ADDEN DUM Bela Mondragon PA-C [address], [place], [address], [facility] 6 12:28:31 Otalgia 16233101 Completed 201104/05/2014 RECORDED 03/25/20 12 9:59AM BY ELIZABETH DRAKE MA, ANNOTLUCIA ON/ADDEN DUM Bela Mondragon PA-C [address], [place], [address], [facility] 6 12:28:31 Synoviti s/tenosy novitis - hand [id number] Completed 200904/05/2014 IMPRESSI ON: POSSIBLE CARPAL TUNNEL SYNDROME ; RECORDED 11/12/19 10 9:28AM BY BARBARA SWEENEY ON/ADDEN DUM Bela Mondragon PA-C [address], [place], [address], [facility] 6 12:28:32 Joint pain in ankle and foot Completed 200904/05/2014 IMPRESSI ON: FXT FIBULA AND OTHER IN 01/01, STILL WITH AIN EXPECTED , TX WITH ULTRAM SINCE NO CONTRAIN DICATION S AND USE MOTRIN 800MG TID WITH FOOD; RECORDED 11/12/19 10 9:27AM BY BARBARA SWEENEY ON/ADDEN DUM Bela Mondragon PA-C [address], [place], [address], [facility] 6 12:28:32 Pain in thoracic spine 815532104 Completed 200904/05/2014 IMPRESSI ON: MUSCULAR , STRETCH; RECORDED 11/12/19 10 9:27AM BY BARBARA SWEENEY ON/ADDEN DUM Bela Mondragon PA-C [address], [place], [address], [facility] 6 12:28:32 Skin sensatio n disturba nce 31380298 Completed 201104/05/2014 IMPRESSI ON: AT SITE OF PREVIOUS CONTUSIO N FROM ABOUT A MONTH AGO, WITHOUT PAIN OR WITHOUT SIGNS OF CELLULIT IS, FOR NOW WILL MONITOR; RECORDED 06/12/20 12 9:03AM BY BARBARA ARTIS ON/ADDEN DUM Bela Mondragon PA-C [address], [place], [address], [facility] 6 12:28:32 Knee pain Completed 201104/05/2014 RECORDED 03/25/20 12 9:59AM BY ELIZABETH DRAKE MA, BARBARA ON/ADDEN DUM Omayra garrett [facility] 9 15:55:45 Immuniza tion refused Completed 201204/05/2014 RECORDED 05/09/20 13 10:00AM BY BARBARA GUIDRY ON/ADDEN DUM Bela WAFU PA-C [address], [place], [address], [facility] 6 12:28:32 Plantar fascial fibromat osis 50063222 Completed 201104/05/2014 RECORDED 06/12/20 12 9:04AM BY BARBARA ARTIS ON/ADDEN DUM Bela Mondragon PA-C [address], [place], [address], [facility] 6 12:28:32 Pyelonep hritis 44877169 Completed 201104/05/2014 IMPRESSI ON: SEE ABOVE, PT TO FINISH BACTRIM TO ER IF CANNOT TOLERATE PO WITH VOMITING OR FEELS DIZZY.., PT WILL CALL AND CHECK WITH LEAD DATA ARCHITECT TOMORROW ABOUT MAKING SURE SENSITIV ITIES MATCH BACTRIM, FLUIDS REST; RECORDED 03/25/20 12 9:59AM BY ELIZABETH DRAKE MA, BARBARA ON/ADDEN DUM Bela Mondragon PA-C [address], [place], [address], [facility] 6 12:28:31 Hypertro phic conditio n of skin 39624302 Completed 201204/05/2014 IMPRESSI ON: AFTER WEIGHT LOSS. GETS INTERTRI GO FUNGAL INFECTIO NS DUE TO THIS; RECORDED 05/09/20 13 10:00AM BY BARBARA GUIDRY ON/ADDEN DUM Bela CHOE-C [address] [facility] [address], [place], [address], [facility] 6 12:28:32 Influenz a vaccine needed [id number] 06 Completed 201104/05/2014 RECORDED 06/12/20 12 9:13AM BY PRATIBHA SILVEIRA, OFFICE VISIT Bela CHOE-C [address] [facility] [address], [place], [address], [facility] 6 12:28:32 Pain in limb 64824414 Completed 201104/05/2014 IMPRESSI ON: PT TO SET UP APPT; RECORDED 03/25/20 12 9:59AM BY ELIZABETH DRAKE MA, BARBARA ON/ADDEN DUM Bela Mondragon PA-C [address] [facility] [address], [place], [address], [facility] 6 12:28:32 Inflamma tion of sacroili ac joint 02902576 Completed 201104/05/2014 IMPRESSI ON: RIGHT SIDED PAIN, CHANGE TO IBUPROFE N WITH FOOD AND TYLENOL WITH CODEINE AT NIGHT. PE 05/[address] UP PT HAS ANGEL K; RECORDED 07/08/20 12 1:24PM BY BARBARA GUIDRY ON/ADDEN DUM Bela MOCKC [address] [facility] [address], [place], [address], [facility] 6 12:28:32 Shoulder joint pain 786412045 Completed 201104/05/2014 IMPRESSI ON: SOUNDS LIKE BURSISIT PT TO SEE [facility]; RECORDED 03/25/20 12 9:59AM BY ELIZABETH DRAKE MA, BARBARA ON/ADDEN DUM Bela Mondragon PA-C [address], [place], [address], [facility] 6 12:28:32 Chronic sinusiti s 10776214 Completed 201104/05/2014 RECORDED 03/25/20 12 9:59AM BY ELIZABETH DRAKE MA, BARBARA ON/ADDEN DUM Bela Mondragon PA-C [address] [facility] [address], [place], [address], [facility] 6 12:28:31 Administ ration of diphther ia and tetanus vaccine Completed 201104/05/2014 RECORDED 07/08/20 12 1:24PM BY BARBARA GUIDRY ON/ADDEN DUM Bela Mondragon PA-C [address] [facility] [address], [place], [address], [facility] 6 12:28:32 Urinary tract infectio us disease 40857371 Completed 200804/05/2014 RECORDED 12/07/19 09 8:54AM BY BRENDA STEINER MA, BARBARA ON/ADDEN DUM Bela Mondragon PA-C [address] [facility] [address], [place], [address], [facility] 6 12:28:32 Wheezing 67208093 Completed 201104/05/2014 RECORDED 03/25/20 12 9:59AM BY ELIZABETH DRAKE MA, BARBARA ON/ADDEN DUM Bela Mondragon PA-C [address] [facility] [address], [place], [address], [facility] 6 12:28:32 Dysuria 20456318 Completed 06/29/2016 Brenda green MA null, [facility] 6 15:19:10 Acute pharyngi tis 191595187 Completed 06/29/2016 LUIS FERNANDO Adams, [facility] 6 15:19:04 Acute vaginiti s 52440748 Completed 06/29/2016 LUIS FERNANDO Adams, [facility] 6 15:18:52 Cough 94538353 Completed 06/29/2016 LUIS FERNANDO Adams, [facility] 6 15:19:12 Palpitat ions 77981623 Completed 01/25/2017 Omayra deluna [facility] 7 14:59:02 Spasm of back muscles 711337499 Completed 01/25/2017 Omayra deluna [facility] 7 14:59:27 Atrial fibrilla tion 44647966 Completed 02/02/2019 Omayra deluna [facility] 9 15:56:00 Spinal stenosis in cervical region 04873261 Completed 11/30/2014 mri does not show this Bela CHOE-C [address], [place], [address], [facility] 6 12:28:32 Snoring 07333370 Completed 01/25/2017 Omayra deluna [facility] 7 14:58:59 Thyroid nodule 782972956 Active Bela Giancarlo CHOE-C [address], [place], [address], [facility] 6 12:28:31 Insomnia 834032695 Active Belajihan Mondragon PA-C [address], [place], [address], [facility] 6 12:28:31 Degenera tion of thoracic interver tebral disc 49554576 Active T1/T2 Bela CHOE-C [address], [place], [address], [facility] 6 12:28:32 Degenera tion of cervical interver tebral disc 31859933 Completed 01/25/2017 Omayra Curiel-Pamela deluna, [facility] 7 14:59:09 Edema 262523667 Completed 06/29/2016 Brenda green [place] null, [facility] 6 15:18:56 Rapid atrial fibrilla tion 264942549 Completed 01/27/2018 Omayra garrett null, [facility] 8 11:21:10 Paroxysm al atrial fibrilla tion 588487339 Active Omayra Curiel-Pamela [email or web address] null, [facility] 6 15:17:25 Panic disorder 892009913 Completed 02/02/2019 Omayra Curiel-Pamela marcelinonmarta deluna, [facility] 9 15:55:48 Patent foramen ovale 975276753 Active Omayra Curiel-D [email or web address] null, [facility] 6 15:17:25 Joint pain 32283156 Completed 01/25/2017 Omayra garrett null, [facility] 7 14:59:13 Anxiety 61482047 Completed 01/08/2020 Bela Mondragon PA-C [address], [place], [address], [facility] 0 17:12:31 Asthma 810223332 Completed 201701/08/2020 Bela CHOE-Man [address], [place], [address], [facility] 0 17:12:58 Ex-smoke r 2648936 Active 2017 Brenda green MA null, [facility] 8 15:42:54 Small bowel obstruct ion 997146488 Active 2018 Brenda green [place] null, [facility] 9 09:46:54 Generali zed anxiety disorder 67740040 Active 2019 Bela Mondragon PA-C [address], [place], [address], [facility] 0 17:12:32 Mild intermit tent asthma 174949093 Active 2019 Bela Mondragon PA-C [address], [place], [address], [facility] 0 17:13:08 [facility] [facility] 070658288 Active 2019 Bela MOCKC [address], [place], [address], [facility] 0 17:13:31 Obstruct jefry sleep apnea syndrome 85668801 Active 2022 Cabrera Mondragon PA-C [address], [place], [address], [facility] 3 17:09:42 Pain of left hip joint 47201733604 9100 Active 2022 Cabrera Mondragon PA-C [address], [place], [address], [facility] 3 17:10:00 Lateral epicondy litis of left humerus 30084502384 9100 Active 2022 Cabrera Mondragon PA-C [address], [place], [address], [facility] 3 13:33:40 Problem Notes None recorded. Procedures Surgical History Date Name Laterality Status Provider Name and Address Organization Details Recorded Time 05/21/20 23 Endoscopic us exam esoph completed Leslie Alba [facility] 05/21/2023 11:10:55 04/20/20 23 laparoscopic appendectomy completed Leslie Alba [facility] 04/22/2023 10:12:44 04/20/20 23 Appendectomy completed Avelina Encinas RN [facility] 04/30/2023 10:29:16 04/19/20 23 Appendectomy completed Avelina Encinas RN [facility] 04/25/2023 09:55:00 11/24/19 22 cardioversion completed Avelina Encinas RN [facility] 11/27/2021 13:27:24 01/24/20 17 extraction of wisdom tooth completed Brenda zurita MA [facility] 01/12/2019 09:34:35 Mammogram screening completed Brenda zurita [facility] 06/29/2016 15:20:32 Colonoscopy completed Brenda zurita [facility] 06/29/2016 15:20:36 Imaging Results Imaging Date Name Status LastModified by Organiz ation Details LastModified Time 05/21/2023 upper endoscopy procedure (EGD) (PROC) completed [email or web address] [facility] (Medical Records) [address] [place], [address], 05/21/2023 11:11:15 05/21/2023 US, abdomen, complete completed [email or web address] [facility] (Medical Records) [address] [place], [address], 05/22/2023 12:50:47 Procedure Notes None recorded. Medical [...] cm LUIS FERNANDO Goldstein [facility] 01/08/2023 15:48:36 Date Recorded Body height Body mass index (BMI) Body weight Heart rate Oxygen saturation Oxygen saturation in Arterial blood by Pulse oximetry Body temperature Systolic blood pressure Diastolic blood pressure Provider Name and Address Organization Details Last Updated DateTime 171.45 cm 50.2 kg/m2 798256. 52 g 60 /min 97 % 97 % 98.3 [degF] 138 mm[Hg] 87 mm[Hg] [facility] 15:56:22 Date Recorded Body height Body mass index (BMI) Body weight Heart rate Oxygen saturation Oxygen saturation in Arterial blood by Pulse oximetry Body temperature Systolic blood pressure Diastolic blood pressure Provider Name and Address Organization Details Last Updated DateTime 3 171.45 cm 49.2 kg/m2 973646. 97 g 94 /min 96 % 96 % 97.8 [degF] 113 mm[Hg] 80 mm[Hg] Isela Metz MA [facility] 3 13:21:43 Date Recorded Body height Body mass index (BMI) Body weight Heart rate Oxygen saturation Oxygen saturation in Arterial blood by Pulse oximetry Body temperature Systolic blood pressure Diastolic blood pressure Provider Name and Address Organization Details Last Updated DateTime 3 171.45 cm 48.1 kg/m2 368606. 82 g 68 /min 96 % 96 % 98.3 [degF] 160 mm[Hg] 98 mm[Hg] Isela Metz MA [facility] 3 14:57:00 Social History Question Answer Notes LastModified by Organizat ion Details LastModified Time Tobacco Smoking Status Former Smoker Cherie deluna [facility] 05/18/2014 10:29:49 Do You Have An Advance Directive? No [email or web address] Information not available 06/20/2022 What Is Your Level Of Alcohol Consumption? Occasional [email or web address] Information not available 12/29/2014 Is Blood Transfusion Acceptable In An Emergency? Yes [email or web address] Information not available 01/20/2016 What Is Your Level Of Caffeine Consumption? Occasional Information not available 12/29/2014 How Much Tobacco Do You Chew? None Information not available 06/29/2016 In The 14 Days Before Symptom Onset, Have You Had Close Contact With A Laboratory-confi rmed COVID-19 While That Case Was Ill? No [email or web address] Information not available 06/20/2022 In The 14 Days Before Symptom Onset, Have You Had Close Contact With A Person Who Is Under Investigation For COVID-19 While That Person Was Ill? No [email or web address] Information not available 06/20/2022 Have You Been To An Area Known To Be High Risk For COVID-19? No [email or web address] Information not available 06/20/2022 Are You Currently Employed? Yes [email or web address] Information not available 12/29/2014 What Type Of Diet Are You Following? REGULAR [email or web address] Information not available 12/29/2014 Which Illicit Or Recreational Drugs Have You Used? 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 With Others (Juan Carlos) And 2 Daughters [email or web address] Information not available 06/20/2022 Do You Take Precautions To Prevent Distracted Driving? Yes Information not available 01/20/2016 How Often Do You Need To Have Someone Help You When You Read Instructions, Pamphlets, Or Other Written Material From Your Doctor Or Pharmacy? Sometimes [email or web address] Information not available 01/20/2016 Have You Served [...] Of Your Most Recent Tobacco Screening? 06/20/2022 [email or web address] Information not available 06/20/2022 How Many Children Do You Have? 2 Adriana And Renee Information not available 03/27/2018 What Is Your Current Pack Years? 10packyears [email or web address] Information not available 06/20/2022 Do You Use Protection During Sex? No Information not available 06/29/2016 Seat Belts Used Routinely Yes [email or web address] Information not available 06/20/2022 Are You Sexually Active? Yes Information not available 06/29/2016 Smoke Alarm In Home Yes [email or web address] Information not available 06/20/2022 Are You Passively Exposed To Smoke? No Information not available 06/29/2016 General Stress Level Medium [email or web address] Information not available 06/20/2022 Do You Use Sunscreen Routinely? Yes [email or web address] Information not available 12/29/2014 How Many Years Have You Smoked Tobacco? 10 Information not available 12/29/2014 Do You Or Have You Ever Used Any Other Forms Of Tobacco Or Nicotine? No [email or web address] Information not available 06/20/2022 Sex: Unknown Functional Status Question Answer Note LastModified by Organizat ion Details LastModified Time Are you able to walk? YESWOREST [email or web address] Information not available 06/20/2022 Are you able to care for yourself? Yes [email or web address] Information not available 12/29/2014 What is your exercise level? Occasional [email or web address] Information not available 02/02/2019 Mental Status None recorded. Family History Relationship Description Onset Age of this Age Resolved Age Notes LastModified by Organization Details LastModified Time Father Alcohol abuse [email or web address] Not available 2019 15:29:15 Notes:Pt is adopted no FH kn own Medical History Condition Response Heart Problems Y Depression Y Eating Disorder Y Bladder Problems Y Anxiety Disorder Y Obesity Y Vision or Eye Problems Y Arthritis Y Asthma Y Gynecological History Statement/Question Response HPV Vaccine Date of Last Pap Smear Date of Last Colonoscopy Most Recent Mammogram Most Recent Bone Density Obstetrics History GPAL:G 0 P 0 0 0 0 Immunizations Vaccine Type Date Status Note Provider Nam eunice and Address Organization Details Recorded Time COVID-19, mRNA, LNP-S, PF, 30 mcg/0.3 mL dose 02/28/2021 completed LUIS FERNANDO Artis [facility] [place] 12/13/2021 11:25:33 COVID-19, mRNA, LNP-S, PF, 30 mcg/0.3 mL dose 03/21/2021 completed Pratibha Silveira MA [facility] 12/13/2021 11:25:33 MMR 10/21/2002 completed Not Available [facility] 03/09/2014 14:00:38 Tdap 06/12/2012 completed [facility] 03/09/2014 14:00:38 MMR 06/12/2012 completed Not Available [facility] 03/09/2014 14:00:38 Past Encounters Encounter ID Performer Location Encounter Start Date Encounter Closed Date Diagnosis/Indication Diagnosis SNOMED-CT Code Diagnosis ICD10 Code Diagnosis Note [id number] autoEComm erce [address] [facility] [place] [address] 11/13/2006 00:00:00 [id number] autoEComm erce [address] [facility] [place] [address] 12/23/2006 00:00:00 [id number] autoEComm erce [address] [facility] [place] [address] 07/28/2007 00:00:00 [id number] autoEComm erce [address] [facility] [place] [address] 12/06/2008 00:00:00 [id number] autoEComm erce [address] [facility] [place] [address] 03/25/2009 00:00:00 [id number] autoEComm erce [address] [facility] [place] [address] 04/28/2009 00:00:00 [id number] autoEComm erce [address] [facility] [place] [address] 11/11/2009 00:00:00 [id number] autoEComm erce [address] [facility] [place] [address] 12/20/2009 00:00:00 [id number] autoEComm erce [address] [facility] [place] [address] 02/17/2010 00:00:00 [id number] [address] [place] [address] 07/25/2010 00:00:00 [id number] autoEComm erce [address] [place] [address] 09/13/2010 00:00:00 [id number] auto[address]Comm erce [address] [place] [address] 11/11/2010 00:00:00 [id number] autoEComm erce [address] [place] [address] 02/01/2011 00:00:00 [id number] autoEComm erce [address] [place] [address] 02/05/2011 00:00:00 [id number] autoEComm erce [address] [facility] [place] [address] 02/06/2011 00:00:00 [id number] autoEComm erce [address] [facility] [address] [place] [address] 02/15/2011 00:00:00 [id number] autoEComm erce [address] [facility] [address] [place] [address] 03/08/2011 00:00:00 [id number] autoEComm erce [address] [facility] [place] [address] 11/26/2011 00:00:00 [id number] autoEComm erce [address] [facility] [address] [place] [address] 11/30/2011 00:00:00 [id number] autoEComm erce [address] [facility] [address] [place] [address] 01/09/2012 00:00:00 [id number] autoEComm erce [address] [facility] [address] [place] [address] 03/25/2012 00:00:00 [id number] autoEComm erce [address] [facility] [address] [place] [address] 06/12/2012 00:00:00 [id number] autoEComm erce [address] [facility] [place] [address] 07/08/2012 00:00:00 [id number] autoEComm erce [address] [facility] [place] [address] 09/01/2012 00:00:00 [id number] autoEComm erce [address] [facility] [place] [address] 09/05/2012 00:00:00 [id number] autoEComm erce [address] [facility] [place] [address] 10/16/2012 00:00:00 [id number] autoEComm erce [address] [facility] [place] [address] 12/15/2012 00:00:00 [id number] autoEComm erce [address] [facility] [place] [address] 05/09/2013 00:00:00 [id number] autoEComm erce [address] [facility] [place] [address] 07/27/2013 00:00:00 [id number] autoEComm erce [address] [facility] [place] [address] 12/25/2013 00:00:00 [id number] autoEComm erce [address] [facility] [place] [address] 01/16/2014 00:00:00 [id number] Elizabeth Drake MA Main Office [address] [facility] [address] [place] [address] 05/18/2014 10:10:59 05/18/2014 10:49:51 Dysuria 80535050 UA c/w UTI, will tx and send culture Acute pharyngitis 819825745 rapid strep neg. [id number] Pratibha Silveira MA Main Office [address] [facility] [address] [place] [address] 05/29/2014 11:51:21 05/29/2014 12:23:45 Cough 23418550 Sounds inflammato ry in nature likely post viral infection vs allergy related. No current evidence for bacterial process. Will address inflammati on/broncho constricti on while waiting to see if allergy rx helps. Would need re-eval and consider of abx/CXR if persistent or sputum becomes purulent. [id number] Main Office [address] [facility] [address] [place] [address] 06/08/2014 13:52:54 06/08/2014 14:36:30 Palpitations 36598360 likely the endocrine system resetting itself after being on prednisone . reassuranc e. call if worsening [id number] Jena Dominique Main Office [address] [address] [place] [address] 09/20/2014 11:26:27 09/20/2014 11:45:06 Backache 263611964 Continue cyclobenza tete and finish course of prednisone , just started 2d ago, if back pain persists/w hernandoens will refer to PT. [id number] William Johnson Main Office [address] [address] [place] [address] 11/08/2014 09:40:15 11/08/2014 10:41:46 Acute pharyngitis 604343496 Cough 62852786 with fev er and body aches on day 6, suspect bacterial process such as pneumonia. will treat empiricall y. f/u if worsening [id number] Jena Dominique Main Office [address] [address] [place] [address] 11/17/2014 16:24:25 11/17/2014 17:32:05 Palpitations 11254048 Atrial fibrillation 32842724 new onset with RVR. not clear if pain in her upper back is related to the afib. to ER for lowering HR and further assessment for new onset afib Neck pain 48345982 with radiating sxs. likely a cervical radiculopa thy. but it is possible that it is something cardiac related to the afib. will be further assessed in the ER. [id number] Irina Peacock MA Main Office [address] [facility] [address] [place] [address] 11/23/2014 13:19:45 11/23/2014 14:23:50 Atrial fibrillation 29329967 rate well controlled . she will f/u with cardio as planned. Spinal guerrero nosis in cervical region 30549178 concerning that she has a positive babinski [...] before next visit in 2 wks. Snoring 81542524 Thyroid nodule 429527382 Insomnia 534730127 see a elena discussion about gabapentin [id number] Main Office [address] [facility] [address] [place] [address] 12/13/2014 14:13:19 12/13/2014 14:49:18 Atrial fibrillation 89362266 on meds below and doing well continue followup with cardiology Degenerati on of cervical intervertebral disc 00952995 trial of tramadol Thyroid nodule 323423367 pt will get thyroid nodule looked at, most likely will get biopsy Edema 204728014 [id number] Omayra rush Main Office [address] [facility] [address] [place] [address] 12/29/2014 09:06:58 12/29/2014 10:00:23 Adult health examination 229885721 utd on screening Degenerati on of cervical intervertebral disc 63785948 pt is on tramadol and it helps, still having pain, pt is waiting for PT apt, will have my staff call and check on it Atrial fibrillation 76305526 on meds below and doing well continue followup with cardiology , only on FS asa and cartia, continue Thyroid nodule 994481270 needle biopsy later this month, will hold asa for 5 days prior and then will ask thyroid surgeon when she can restart, keep on all other rmeds Edema [id number] Juan Diego Cali MD Main Office [address] [facility] [address] [place] [address] 08/03/2015 11:18:40 08/03/2015 11:44:57 Cough 49351481 R05 Symptomati c treatment- lots of fluids, rest, tea with honey, OTC cough drops/ cough med as needed, humidifier as needed. Tylenol or ibuprofen for fever/ pain. Return for worsening/ concerns. [id number] Omayra rush Main Office [address] [facility] [address] [place] [address] 12/19/2015 09:57:59 12/19/2015 11:39:30 Palpitations 78357933 R00.2 Rapid atri al fibrillation 286493829 I48.91 Pt. is referred by ambulance to [facility] ER for management of rapid arrhythmia . PT. was maintained on O2 by nasal canula on 2L until paramedics arrived. Pt. will be seen in hospital f/u after the discharge and sleep study will be arranged for her. Note faxed to ER. [id number] Claire Quinonez Main Office [address] [facility] [address] [place] [address] 12/21/2015 10:51:33 12/21/2015 11:58:58 Paroxysmal atrial fibrillation 220190551 I48.0 Recommend to avoid alcohol. Check TSH and CBC. Schedule echocardio gram and sleep study. Consider cardiac referral. Panic disorder 594584294 F41.0 Pt. is on Tramadol for neck pain which will interact with SSRIs. Will recommend to restart counseling RIVER and use Lorazepam PRN for panic attacks. PT. will address this at f/u with PCP. Snoring 22740297 R06.83 Sleep study referral is made to do RIVER. [id number] Hollie Aguayo Main Office [address] [facility] [address] [place] [address] 01/02/2016 13:10:18 01/02/2016 14:49:25 Paroxysmal atrial fibrillation 867268206 I48.0 2 documented episodes total, one in 12/09 and one a year ago. THe one in in 12/09 was after heavy drinking the night before, pt with a small PFO on Echo, will start a baby aspirin and see dR Bradnt tomorrw Edema 425530243 R60.9 continue hctz Joint pain 25418072 M25. 50 pt with diffuse joint pain, she finds she is so much more comfortabl e on tramadol 100mg bid Patent foramen ovale 204 906999 Q21.1 seen on echo, started pt on a baby aspirin today Anxiety 11700960 F41.9 will work on this and her eating issues, she feels she is addicted to food. meetin with Gretta today [id number] Omayra CurielMarisela adri Main Office [address] [facility] [address] [place] [address] 01/20/2016 14:12:02 01/20/2016 15:11:46 Adult health examination 779963979 Z00.00 utd on screening Screening for malignant neoplasm of breast 254054505 Z12.39 pt will arrange Patent foramen ovale 204 254036 Q21.1 seen on echo, started pt on a baby aspirin and cardiology has reviewed with her Paroxysmal atrial fibrillation 158543841 I48.0 2 documented episodes total, one in [...] a shorter monitor she could do Edema 161185421 R60.9 continue hctz [id number] Omayra CurielMarisela fergusonenzo Main Office [address] [facility] [address] [place] [address] 06/06/2016 13:54:52 06/06/2016 14:26:07 Atrial fibrillation 97440385 I48.91 regular rhythmn today, on baby aspirin, no recent episodes. one was associated with alcohol in the past Acute pharyngitis 239666 003 J02.9 neg quick strep, seems viral Cough 31424460 R05 use cough med no abx needed [id number] Lan Oliver MD Main Office [address] [facility] [address] [place] [address] 06/09/2016 10:25:58 06/09/2016 11:21:14 Cough variant asthma 861102314 J45.991 She was instructed to call next week if her symptoms persist. This may be a URI which has set off asthma. [id number] Omayra CurielMarisela fergusonenzo Main Office [address] [facility] [address] [place] [address] 06/11/2016 10:46:37 06/11/2016 11:26:31 Asthmatic bronchitis 680320375 J45.909 R/o pneumonia. Chest XRAy to be done. Continue Prednisone . Taper down to 40 mg for 2 days, 30 for 2 days, 20 for 2, 10 for 2. UP draft with Albuterol given in the office. Continue cough meds , rest and fluids. [id number] Omayra rush Main Office [address] [facility] [address] [place] [address] 06/29/2016 15:09:06 06/29/2016 15:58:04 Acute bacterial bronchitis 113489926 J20.9 Improving though she does still have a cough, will repeat CBC to check WBC. Continue inhaler/ cough med as needed. Elevated blood-pressure reading without diagnosis of hypertension 443625108 R03.0 High BP today, patient notes her BP has been higher lately, will have her f/u in 2 weeks for recheck of BP and she will have BMP done. [id number] Omayra rush Main Office [address] [address] [place] [address] 07/30/2016 13:44:57 07/30/2016 14:59:36 Benign essential hypertension 7805915 I10 [id number] Omayra rush Main Office [address] [address] [place] [address] 10/26/2016 14:44:08 10/26/2016 15:35:24 Acute pharyngitis 187479861 J02.9 Sat water gargles and take OTC pain meds. Elevated blood-pressure reading without diagnosis of hypertension 657089154 R03.0 BP remains borderline . Pt. is on HCTZ 25 mg and is recommende d to continue. Repeat BMP. F/u with PCP in 3-4 m. Keep low sodium and low caffeine diet. [id number] Juan Diego Cali MD Main Office [address] [facility] [address] [place] [address] 10/27/2016 10:46:26 10/27/2016 11:22:38 Acute pharyngitis 587240405 J02.9 Given active abx therapy which should [...] swallow oral secretions . Exudative pharyngitis 12 3212464 J02.9 [id number] Willy avina Main Office [address] [facility] [address] [place] [address] 10/30/2016 08:51:17 10/30/2016 09:54:13 Acute pharyngitis 791110499 J02.9 strep neg, but persists despites 10 days of amox - ? monet-tonsi lar abscess - see below Dental abscess 110747602 K04.7 s/p amox x 10 days - next f/u 3.28 for tooth extraction Peritonsillar abscess 15 018035 J36 ? caused by dental abscess? Low back pain 046238580 M54.5 Impacted cerumen 2366488 6 H61.21 mild - mod R ear [id number] Omayra rush Main Office [address] [facility] [address] [place] [address] 11/26/2016 08:54:30 11/26/2016 09:29:41 Amenorrhea 40136420 N91.2 neg test Gastroesop hageal reflux disease 355095304 K21.9 untx, quite symptomati c, that is what nausea is form, tx and check h pylori Nausea 806269679 R11.0 due to GERD return 6 weeks, check any discomfort after eating is resolved, if not refer to GI Body mass index 40+ - severely obese 989830302 Z68.41 Obesity 715859156 E66.9 [id number] Omayra Pato rush Main Office [address] [facility] [address] [place] [address] 01/25/2017 14:31:24 01/25/2017 15:18:18 Adult health examination 740115808 Z00.00 utd on screening except mammogram, pt iwll arrange, needs to work on diet and exercise Screening for malignant neoplasm of breast 014986862 Z12.39 pt will arrange Urinary incontinence 165 170553 R32 on meds Morbid obesity 575720092 E66.01 Obesity 552939437 E66.9 Paroxysmal atrial fibrillation 537697393 I48.0 2 documented episodes total, one in [...] trigger for afib Pain in right knee 61314 56309 62264 M25.561 Sleep apnea 52504944 G47 .30 pt tested positive but has not gotten CPAP yet, needs to make a visit [id number] Omayra rush Main Office [address] [facility] [address] [place] [address] 10/10/2017 15:31:26 10/10/2017 16:02:27 Wheezing 15598109 R06.2 Cough 95914926 R05 Symptomati c treatment- lots of fluids, rest, tea with honey, OTC cough drops/ cough med as needed, humidifier as needed. Tylenol or ibuprofen for fever/ pain. Return for worsening/ concerns. Delsym OTC. Acute bronchitis 3673744 2 J20.9 Pain in right knee 29812 74199 17613 M25.561 had been on tramadol then lost her insurance, requests refill. will fill x 1 month and she will need f/u with PCP to get re-establi shed with med. [id number] Omayra rush Main Office [address] [facility] [address] [place] [address] 10/28/2017 15:53:21 10/28/2017 17:35:33 Cough 89342341 R05 check cxr to r/o pna -- ? d/t pnd Pain of right wrist 3169 156356 82680 M25.531 ? CTS - neg tinels/pha lens/finkl estein -- will get OT eval and rec use wrist splint hs Allergic rhinitis 440627 04 J30.9 Asthma 318109522 J45.20 [id number] Omayra rush Main Office [address] [facility] [address] [place] [address] 11/18/2017 13:44:44 11/18/2017 15:46:12 Cough 10967222 R05 neg cxr, less but persists - pt concerned - see below Dyspnea 417856143 R06.00 nl ekg and spirometry - offered re-assuran ce Asthma 639300941 J45.20 will check spirometry - see above - yue nl, but pt used to take advair yrs ago and states she feels like her lungs are still inflamed/h ave a lot of mucous - will give trial of ICS to see if help Paroxysmal atrial fibrillation 828296074 I48.0 no problems c this in a long time - see above Obstructiv e sleep apnea syndrome 08564930 G47.33 no get cpap machine - encouraged pt to f/u c sleep med Seasonal a llergic rhinitis 949152277 J30.2 cont singulair as dir [id number] Omayra rush Main Office [address] 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 [id number] Omayra rush Main Office [address] [facility] [address] [place] [address] 03/27/2018 11:24:04 03/27/2018 12:19:20 Lateral epicondylitis 595279606 M77.11 will give 2 options of TE support - she will decide which is covered better / fits better, as well as rec wrist support at hs d/t her sleeping position (R hand bent under head - full wrist flexion), and get pssp eval [id number] Juan Diego Cali MD Main Office [address] [facility] [address] [place] [address] 06/11/2018 09:23:10 06/11/2018 10:12:36 Body mass index 40+ - severely obese 623391699 Z68.42 urged pt to see nutritioni st in [place], and if no sig improvemen t then [...] counseling and/or coordinati on of care. Fatigue 75220870 R53.83 Anxiety 52298188 F41.9 see above re: therapist Morbid obesity 623905572 E66.01 [id number] Omayra rush Main Office [address] [place] [address] 07/30/2018 10:40:47 07/30/2018 11:37:06 Acute asthma 837002005 J45.901 not on any control meds, will start inhaled steroid, pre proair and singulair and return in 3 months will get spirometry then [id number] Ana Maria Gallego Main Office [address] [address] [address] [place] [place] [address] 01/12/2019 09:27:00 01/12/2019 10:40:07 Indigestion 024518767 K30 regular diet, avoid offending foods. Trial of PPI and check for recurrence of hpylori. Has followup with Dr Veena Mccarthy in a month Pain in left knee 120919 2947 34934 M25.562 PT, discuss at followup, will try physical therapy, pt has multiple joint pains for years Diarrhea 83539412 R19.7 ? IBS, try daily fiber and probiotic, followup in a month, if not better consider GI eval. Pt can try dairy eliminatio n for a week, does not have symptoms of gluten intoleranc e. [id number] Omayra rush Main Office [address] [facility] [address] [place] [address] 02/02/2019 15:28:28 02/02/2019 16:19:18 Adult health examination 872468713 Z00.00 eating better, wants to lose weight, is due for mammogram Screening for malignant neoplasm of breast 031927420 Z12.39 we will arrange due to lack of followthfo ugh Patent foramen ovale 204 118523 Q21.1 seen on echo, started pt on a baby aspirin and cardiology has reviewed with her Paroxysmal atrial fibrillation 569955359 I48.0 2 documented episodes total, one in [...] during the week. Lymphedema of lower extremity 847926609 I89.0 better on meds, continue hctz Obstructiv e sleep apnea syndrome 32381574 G47.33 pt ot see sleep medicine again, should retry cpap Body mass index 40+ - severely obese 371425819 E66.01 Z68.42 pt to lower carbs, hard for her to keep on the healthy eating track. [id number] Cabrera Mondragon PA-C Main Office [address] [facility] [address] [place] [address] 04/07/2019 13:19:55 04/07/2019 14:23:48 Pain in left knee 3467036290 26006 M25.562 ? PFS vs other - will [...] on of care. Gastroesop hageal reflux disease 374286542 K21.9 [id number] Omayra rush Main Office [address] [facility] [address] [place] [address] 12/31/2019 13:03:19 12/31/2019 14:22:13 Asthma 048624600 J45.909 pt will restart med Urge incon tinence of urine 62625719 N39.41 urology had patient on oxybutynin . will restart Lymphedema of lower extremity 718394837 I89.0 better on meds, will try chlorthali done [id number] Bela Mondragon PA-C [facility] [address] [address] [place] [address] 01/08/2020 15:07:08 01/11/2020 08:39:09 Indigestion 487065113 K30 most likely in response to starting sertraline . Pt tried taking Tums but had no relief. WE will try PPI over the week end and if still having indigestio n discomfort , call after the weekend and be seen in the office to check her EKG. Generalize d anxiety disorder 87073490 F41.1 contineu SSRI as prescribed by psych. MIght be experienci ng symptoms of indigestio n due to SSRI as well. Lymphedema of lower extremity 837183326 I89.0 continue diuretic, but pt. was advised to have labs done not later than after the week end. [id number] Lan Oliver MD [facility] [address] [address] [place] [address] 04/01/2020 07:58:50 04/01/2020 15:09:46 Abdominal pain 13082926 R10.9 She will try simethicon e. There was nothing on her history that warranted immediate attention and she was advised to call the office in the am if it persisted. [id number] Ana Maria Gallego [facility] h [address] [address] [place] [address] 04/22/2020 06:41:45 04/24/2020 10:57:02 [id number] Ana Maria Gallego Main Office [address] [address] [place] [address] 05/30/2020 15:06:28 05/30/2020 16:57:55 Adult health examination 644494381 Z00.00 Pt has concerns about her weight and is under stress with family and work. Social and family history reviewed. Immunizati ons reviewed, advised annual flu shot, will get at [facility] as we do not have any in stock at this time. . She is not up to date on dental and eye providers, mammogram due, distance learning unit leader due Reviewed diet and exercise at length, counseling > 25 min Generalize d anxiety disorder 15415062 F41.1 pt agrees to call her counselor to discusss issues especially her wt and eating compulsion . declines medication at this time. NO SI or HI, Addiction 11286953 R46.8 1 Pt feels she has a food addiction, recommende d to go to OA or call to see if any virtual meetings. Most of the appt spent talking about food, eating and stress/anx iety related to this. She will reach out to the counselor, suggested some ideas for this. Elevated blood-pressure reading without diagnosis of hypertension 160517667 R03.0 Pt under stress today, tearful, recheck at next ov Mild inter mittent asthma 097904256 J45.20 stable at this time, uses montelukas t Morbid obesity 098220521 E66.01 Pt will look into OA program. Suggested lowering carbs, more protein, no meal skipping and tips to avoid night eating. Advised to try and me more active. Short term followup [id number] Giorgio Machado MD Main Office [address] [facility] [address] [place] [address] 12/28/2020 10:59:55 12/28/2020 14:58:13 Cervical radiculopathy 99001040 M54.12 Will do a trail of NSAID [...] compress.N willow exercises provided. Urinary incontinence 165 940482 R32 She was on oxybutynin 20 ER, she has a hx of small bowel obstructio n she requested a refill at that dose, given hx of small bowel obstructio n I think it might not be a bad idea for patient to discuss with urology if other options can be explored and she agreed to this. Medial epicondylitis 532 49217 M77.01 Will do trial of NSAID, Patient aware risk of GI bleed as she is also on elaquis. She was told to take with meal. If any signs of bleeding she was asked to stop and let us know. [id number] Ana Maria Gallego Main Office [address] [facility] [address] [place] [address] 01/09/2021 15:56:27 01/10/2021 09:57:35 Paroxysmal atrial fibrillation 216539903 I48.0 pt is followed by cardiology , remains on eliquis, flecanide and metoprolol for now. Seems to be in NSR today, no sx. Advised to consider sleep studay repeat and work on wt loss. Pt wiil consider Body mass index 40+ - severely obese 683996986 E66.01 Z68.41 Pt will decide on salt machine operator appt, will try cutting back, walking. Discusse OA program Generalize d anxiety disorder 82418492 F41.1 pt agrees to continue with her counselor to discuss issues especially her wt and eating compulsion . declines medication at this time. NO SI or HI, [id number] Ana Maria Gallego Main Office [address] [facility] [address] [place] [address] 01/25/2021 14:49:47 01/25/2021 16:14:43 Cervical radiculitis 32218292 M54.12 trial of short pred taper to decrease inflammati on with radiculopa thy. Side effects reviewed. Cervical radiculopathy 05912035 M54.12 stay on gabapentin , can use bid if not too drowsy, or can use 2 at bedtime Acute thor acic back pain 553902970 M54.6 check xay, do stretches, advised PT, pt will consider Body mass index 40+ - severely obese 730737019 E66.01 Z68.41 pt would like to see salt machine operator, will do a referral [id number] Omayra Angelest h [address] [facility] [address] [place] [address] 02/13/2021 08:33:32 02/13/2021 14:20:43 Tendinitis of right elbow 1612591605 1674440 M67.823 continued right elbow pain, sounds like tendonitis , ice and set up appt at [facility] for cortisone injection Pain of le ft shoulder blade 854358585 M25.512 pt with muscular pain around left scapula into neck and shoulder, most likely related to muscular pain form poor posture, left sided pectoralis insertion pain on and off, does not feel like pts cardiac pain and it is positional , no need for cardiac eval. pt to set up PT, use a roller on upper back Pain of le ft shoulder joint 5437635316 8231521 M25.512 related to muscular pain from neck and back [id number] Ana Maria Julián Main Office [address] [place] [address] 06/23/2021 13:56:44 06/23/2021 15:13:56 Adult health examination 897298545 Z00.00 Pt has concerns about her weight and is under stress with family and work but stable at this time. Social and family history reviewed. Immunizati ons reviewed, advised annual flu shot,, will be due for Tdap next year . She is not up to date on dental and eye providers, mammogram due, distance learning unit leader due Reviewed diet and exercise at length, counseling > 25 min Generalize d anxiety disorder 61172360 F41.1 pt agrees to continue with her counselor to discuss issues especially her wt and eating compulsion . declines medication at this time. NO SI or HI, Spent time disussing family issues around teen age daughter Paroxysmal atrial fibrillation 546760599 I48.0 pt is followed by cardiology , remains on eliquis, flecanide and metoprolol for now. Seems to be in NSR today, no sx. Advised to consider sleep study repeat and work on wt loss. Pt wiil consider sleep evaluation Mild inter mittent asthma 135939372 J45.20 stable at this time, has proair prn Morbid obesity 604553338 E66.01 Pt will look into salt machine operator. Suggested lowering carbs, more protein, no meal skipping and tips to avoid night eating. Advised to try and me more active. Screening for malignant neoplasm of breast 591051154 Z12.39 [id number] Omayra rush Main Office [address] [place] [address] 12/13/2021 07:41:49 12/13/2021 11:53:08 [id number] Omayra CurielMarisela rush [facility] [address] [facility] [address] [place] [address] 04/08/2022 15:01:10 04/09/2022 10:56:34 Pain in right arm 995668176 M79.601 had to call into a different pharmacy, first one closed will treat for 2 days since weekend then needs in person appt, could be radicular pain, unable to tell without exam [id number] Mary Becerra MA Main Office [address] [facility] [address] [place] [address] 04/18/2022 14:48:18 04/18/2022 16:00:22 Cervical radiculitis 50574652 M54.12 will get pmr eval, and give trial of gbn -- could consider tyl 500mg 1-2 tabs up to 3x/day as well Paroxysmal atrial fibrillation 011195940 I48.0 encouraged pt to resume eliquis as per card - if too $$, then consider coumadin [id number] Hollie Aguayo Main Office [address] [facility] [address] [place] [address] 06/20/2022 13:57:16 06/20/2022 15:17:51 Adult health examination 656563914 Z00.00 Pt has concerns about her weight and is under stress with family and work but stable at this time. Social and family history reviewed. Immunizati ons reviewed, advised annual flu shot, due for Tdap, covid booster. She will do appt at the pharmacy. She is not up to date on dental and eye providers, mammogram due, distance learning unit leader due Reviewed diet and exercise at length Generalize d anxiety disorder 25161858 F41.1 pt agrees to continue with her counselor to discuss issues especially her wt and eating compulsion . declines medication at this time. NO SI or HI, Spent time discussing family issues Paroxysmal atrial fibrillation 702259764 I48.0 pt is followed by cardiology , remains on eliquis, flecanide and metoprolol for now. Seems to be in NSR today, no sx. Advised to consider sleep study repeat and work on wt loss. Pt will consider sleep evaluation Mild inter mittent asthma 092872243 J45.20 stable at this time, has proair prn Morbid obesity 311235089 E66.01 Pt will look into salt machine operator. Suggested lowering carbs, more protein, no meal skipping and tips to avoid night eating. Advised to try and me more active. Screening for malignant neoplasm of breast 207906626 Z12.39 Body mass index 40+ - severely obese 989721037 Z68.43 pt would like to see salt machine operator, will do a referral [id number] Cabrera Mondragon PA-C Main Office [address] [facility] [address] [place] [address] 09/26/2022 15:38:56 09/26/2022 16:43:10 Mild intermittent asthma 371747074 J45.20 rec cont montelukas t as dir, advised pt on how to use flovent x few wks - when feeling better can stop, but cont alb 5-30min ac exercise in future Paroxysmal atrial fibrillation 889729120 I48.0 cont meds, f/u c card as dir Obstructiv e sleep apnea syndrome 69486381 G47.33 seen by sleep med earlier today, will get updated sleep study Dyspnea 363659218 R06.00 negative cardiac w/u - ? d/t asthmatic bronchitis / post viral syndrome vs deconditio ashlee / obesity -- check probnp Impaired f asting glycemia 805281191 R73.01 Fatigue 46056605 R53.83 Pain of le ft hip joint 2869843213 26410 M25.552 check xray - pain x several months - r/o djd - if sig, then get ortho eval [id number] Cabrera Mondragon PA-C [facility] [address] [facility] [address] [place] [address] 12/04/2022 08:29:26 12/04/2022 10:25:23 Cough 16177386 R05.9 rec celine or mucinex, suspect pnd == sinusitis - see below Acute sinusitis 07203618 J01.90 rec cont ns spray prn, consider warm washcloth to side of neck recommend probiotics while on abx Acute conjunctivitis 530 62220 H10.33 she left her contacts in for ~ 48 hours - suspect corneal ulceration - strongly encouraged pt to see her eye md, meanwhile will rx c abx eye ointment [id number] Cabrera Mondragon PA-C [facility] [address] [facility] [address] [place] [address] 01/08/2023 15:46:57 01/08/2023 16:25:29 Urinary tract infectious disease 10723585 N39.0 pt declines giving urine sample, so will rx empiricall y c cipro cont push fluids, consider cranberry juice, also consider prn pyridium recommend probiotics while on abx Seasonal a llergic rhinitis 235875761 J30.2 rec resume singulair as dir, or consider claritin, cont prn ns spray to help lessen pndrtc next week (needs ov not TH) if cough persists [id number] Cabrera Mondragon PA-C Main Office [address] [facility] [address] [place] [place] [address] 04/17/2023 15:26:53 04/17/2023 16:56:58 Lateral epicondylitis of left humerus 1085691976 08529 M77.12 trial c TE support, cool compress prn, wrist splint o/n -- if no better call us - consider ortho for sandoval injxn Skin lesion 28084864 L98 .9 most likely epidermoid cyst - will get derm eval, ? may need to see general surgeon if they cannot remove Pain in both feet 584606 0574 4108837 M79.671 better lately, no evidence / suspicion of fx [id number] Bela Mondragon PA-C Main Office [address] [facility] [address] [place] [place] [address] 04/19/2023 13:10:00 04/19/2023 13:40:50 Abdominal pain 36707147 R10.9 Acute abdomen, refer to emergency department . PT. refused to go by ambulance. Will drive to [facility]. Call ahead placed to [facility] ER. [id number] Lena Cifuentes LPN Main Office [address] [facility] [address] [place] [address] 04/26/2023 10:09:45 05/10/2023 16:14:02 [id number] Lan Oliver MD Main Office [address] [facility] [address] [place] [address] 07/24/2023 14:43:32 07/24/2023 15:27:47 Cough 36540262 R05.9 -in office RSV, flu, and covid are negative-d iscussed OTC interventi ons to help with a cough Acute sinusitis 22405163 J01.90 -x3 weeks of symptoms of sinus pressure, nasal congestion , cough, post nasal drip, and sore throat-guanakito al decongesta nts provide minimal relief-exp osed to other coworkers with similar symptoms-P E revealed sinus tenderness to the frontal sinus, erythemato us posterior oropharynx and nasal discharge- will start pt on augmentin x10 day course Mild inter mittent asthma [id number] J45.20 per pt request, refill Health Concerns Section Related Observation LastModified by Organization Detai ls LastModified Time None Recorded Concern Status LastModified by Organization Details LastModified Time None Recorded Advance Directives Directive N: Payers Encounter Date Sequence Insurance Name Policy Number Policy Pollard Covered Member ID Pollard Member ID Guarantor Name 01/08/2023 1 [facility] - DIRECT CONNECTORCARE TYPE I (HMO) [id number] Steph Neal [id number] 1 Steph Neal 04/17/2023 1 [facility] - DIRECT CONNECTORCARE TYPE I (HMO) [id number] Steph Neal [id number] 1 Steph Neal 04/19/2023 1 [facility] - DIRECT CONNECTORCARE TYPE I (HMO) [id number] Steph Neal [id number] 1 Steph Neal 04/26/2023 1 [facility] - DIRECT CONNECTORCARE TYPE I (HMO) [id number] Steph Neal [id number] 1 Steph Neal 07/24/2023 1 [facility] - DIRECT CONNECTORCARE TYPE I (HMO) [id number] Steph Artis Ángel [id number] 1 Steph Neal Notes Date Note Type Note Provider Name and Address Organization Details Recorded Time 01/08/2023 text/html Patient has been having urinary Pressure and frequency . Patient has noticed spasms after urinating since Saturday. no f/c, hematuria Cabrera Mondragon PA-C [address] [address], [place], [address], [facility] 01/08/2023 16:19:43 04/17/2023 text/html pt had B foot pa in x few wks, up until recently - now resolvedcurr c/o L elbow painno trauma to feet or LUEdoes sleep c L wrist flexed occ.also c/o lesion on her back - boyfriend is concerned, no pus dc, no f/c Cabrera Mondragon PA-C [address] [facility] [address], [place], [address], [facility] 04/20/2023 13:37:29 04/19/2023 text/html 47 year old fema le c/o acute R. mid to lower abdominal pain started yesterday morning and gradually worsened in severity. Non radiating, no nausea. NO fever, chills. NO prior h/o similar pain, renal calculi. Urine with hemolyzed trace of blood and ketones. Bela Mondragon PA-C [address] [facility] [address], [place], [address], [facility] 04/19/2023 14:39:26 04/26/2023 text/html Hospitalization Contact RecordReported bypatient.Follow UpHospital: [facility]; admit date: (Please enter in format 'MM/DD/YYYY') (04/19/2023); date of discharge: (Please enter in format 'MM/DD/YYYY') (04/23/2023); date of contact: (Please enter in format 'MM/DD/YYYY') (04/26/2023)Notes:[facility] covered inpatient stay? noTOC with in 48 working hours? yes HCP on file? yesMOLST on file? noDischarge Summary available? yes Pt presented to [facility] on 04/19/23 due to 2.5 days [...] hrs prn pain (30 tabs). ANJU Sewell, [facility] 05/10/2023 16:14:01 07/24/2023 text/html Sinusitis/Allerg yRepor power bypatient.Location:[facility]; [facility] Associated Symptoms:no fever; no nausea or [...] sob, or chest pain. 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 Requests RSV + flu testing. Home covid test is negative. Lan Oliver MD [address] [address], [place], [address], [facility], [place] 07/30/2023 09:10:02 OBGyn Episode No OBEpisode recorded.
[2024-11-16 07:42] VITALS: BMI 49.3
[2024-11-18] VITALS (13 sets, daily range): BP systolic 113–146; BP diastolic 51–89; PULSE 51–65; RESP 16–22; TEMP 36.3–36.5; O2SAT 94–100; BMI 50.3
[2024-11-18 06:34] LABS: UPreg QC Valid YES; Urine Pregnancy NEGATIVE (NEGATIVE)
[2024-11-18] MEDS: Lactated Ringers 1,000 ML 50 ML IVCONT (06:53)
--- NOTE | 2024-11-18 07:25 | MHC.SHP ---
Pre-Procedural Eval Section A - 24 Hr Update-Section A only Date of Service: 11/18/24 The patient is an INPATIENT: No Changes since office visit: No Cold of Flu in the past 2 weeks, No New Medical Problems, No Changes in Medication and No Patient answered all questions The patient has been examined within 24 hours of the surgical procedure. The History & Physical has been completed within 30 days and I have reviewed it.: Yes Section B - Complete if H&P > 30 days Chief Complaint: Other meniscus derangements, unspecified meniscus, Allergies: Allergies Allergy/AdvReac Type Severity Reaction Status Date / Time No Known Allergies Allergy Verified 11/18/24 06:15 [No Known Allergies*] Plan I have reviewed the history and physical and performed a pertinent physical examination on my patient. No changes have occurred unless specified. Time Spent With Patient Time: Total time managing care of this patient today ____ minutes.
[2024-11-18] MEDS: fentaNYL citrate/PF 100 MCG/2 ML VIAL 50 MCG IVPUSH (09:05)
--- NOTE | 2024-11-18 09:15 | HO.ANESPROP2 ---
HPI - Anesthesia Eval Consult details Narrative: knee arthroscopy PMFSH Active Problems Active Problems: All Active Problems Degenerative tear of meniscus of right knee (Acute) Hypercholesterolemia (Acute) Tooth pain (Acute) Cough (Acute) Osteoarthritis of right knee (Acute) Left shoulder pain (Acute) Annual physical exam (Acute) Right medial knee pain (Acute) URI (upper respiratory infection) (Acute) Back pain (Acute) Difficulty sleeping (Acute) Loud snoring (Acute) Major depressive disorder, recurrent, moderate (Acute) S/P laparoscopic appendectomy (Acute) Pre-op evaluation (Acute) Sleep apnea, obstructive (Acute) Morbid obesity (Acute) Asthma (Acute) Family planning advice (Acute) Atrial fibrillation (Acute) Past Medical History Medical History Sleep apnea, obstructive Asthma Atrial fibrillation Family History Family History Other Adopted Family history of problems with anesthesia: No Surgical History Surgical History History of appendectomy History of Problems with Anesthesia: No Social History Social History Household Members: Family Housing: Apartment Do you presently have visiting nurse or other home services: No Alcohol intake: current Alcohol intake frequency: holidays/special occasions only Comment: Socially Patient Tobacco Use Status: Former Tobacco user Cigarette Packs Per Day: 0.5 Years Smoked: 15 +/- e-Cigarette/Vaping Use: Never Used Second Hand Smoke Exposure: Yes Use of substances other than those prescribed or required for medical reasons: No Are you DNR?: No Advance Directives: No Advance Directives Information Provided: Yes service: No Current occupational status: employed 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 Cognitive needs: No Hearing needs: No Vision needs: No Meds Allergies Allergy/AdvReac Type Severity Reaction Status Date / Time No Known Allergies Allergy Verified 11/18/24 06:15 [No Known Allergies*] Active Medications: Current Medications Lactated Ringer's (Lr) 1,000 mls @ 50 mls/hr IVCONT .Q20H ESDRAS Last Admin: 11/18/24 06:53 Dose: 50 mls/hr Home Medications ?Medication ?Instructions ?Recorded ?Confirmed ?Last Taken ?Type levonorgestrel 21 mcg/24 hr (up to intrauterine 07/12/21 10/26/24 Unknown History 8 years) 52 mg intrauterine device (Mirena) albuterol 90 mcg-budesonide 80 2 inh inhalation DAILY PRN 04/15/24 10/26/24 Unknown History mcg/actuation HFA aerosol inhaler Shortness Of Breath Or Wheezing furosemide 20 mg tablet (Lasix) 20 mg PO DAILY PRN Edema 04/29/24 10/26/24 Unknown History Exam Height,Weight and Vital Signs: Height 5 ft 8 in Weight 150.1 kg Last Vital Signs Temp 97.4 F 11/18/24 08:41 Pulse 51 11/18/24 09:10 Resp 16 11/18/24 09:10 BP 130/62 11/18/24 09:10 Pulse Ox 99 11/18/24 09:10 O2 Del Method Nasal Cannula 11/18/24 09:10 O2 Flow Rate 2 11/18/24 09:10 Pertinent Lab Results Pertinent Lab Results: Laboratory Tests 11/18/24 06:20 Urine Test NEGATIVE Airway Mallampati Class: III TM Dist: >3cm Neck ROM: Full Heart: rrr Lungs: cta Assessment and Plan Assessment Anesthesia Assessment: Anesthesia Plan Discussed and Chart Reviewed Final Anesthetic Review Family History of Problems with Anesthesia: No History of Problems with Anesthesia: No NPO: Yes ASA Class: III Final Preanesthetic Review: No Changes in Pt Med Stat, Meds/Allgs Chart Reviewed, Consent Obtained/Reviewed and Anes Risks/Benef Reviewed Patient Risk: Intermediate Procedure Risk: Low Anesthetic Plan Anesthetic Plan: GA Disposition: Standard PACU
[2024-11-18] MEDS: ondansetron HCL 4 MG/2 ML VIAL IVPUSH (09:22)
--- NOTE | 2024-11-20 15:52 | W.PM.OPN ---
Operative Note Operative Note Date of Service: 11/18/24 Narrative: Date of Service: 11/18/24 Pre-op diagnosis: RIght knee degenerative medial meniscus tear Post-op diagnosis: other (1) same 2) OA) Procedure: RIght knee partial medial meniscectomy and chondroplasty Surgeon: Jim Valdez MD Anesthesia: GLMA and local Was an Scalp Treatment Specialist used for this Procedure?: No Estimated blood loss (mL): 5 Tourniquet time (min): 20 IV fluids (mL): 500 Pathology: none sent Condition: stable Disposition: PACU Procedure in detail: Patient was brought to the operating room placed supine on the arthroscopic table and prepped and draped in standard sterile fashion. A time-out was called to identify proper site proper procedure proper surgeon and IV antibiotics per weight were administered. I began by exsanguinating the limb and insufflating tourniquet to 300 mm Hg. Then made a standard anterolateral stab incision. The knee was insufflated with water and 30 degree arthroscope was placed. There was grade 2 fibrillations of the patella and G3/4 of the trochlea. The suprapatellar pouch and the gutters were clean. I descended into the medial compartment where I made my medial portal under direct visualization. There was obvious of complex tear of the posterior horn of the medial meniscus. The root was intact and there was grade 2changes in the tibial plateau and extensive G4 cvhanges of the Medial half of the MFC.. I used a combination of biter shaver and cautery to remove unstable portions of the meniscus. Apporximately 30% meniscal volume was removed. Once I was satsfied with this the ACL was examined and found to be intact and the lateral compartment also examined and without the need for intervention. There were G2 changes of the lateral tibilal plateau. I then removed all instrumentation and closed the portals with skin glue. 25 mL of 2% Marcaine with epinephrine was injected into the joint and the surrounding soft tissues. Patient was then placed in sterile dressing extubated brought recovery room stable condition. There were no known complications.
== END 2024-11-18 11:37 | disposition home or self-care (01) ==
LOC: HO.SSS 05:56
PROVIDERS: Anesthesiology; Visit Provider Orthopaedic Surgery
PROC: (CPT 29870; principal; 2024-11-18 07:30)
DX: M23.321 Other meniscus derangements, posterior horn of medial meniscus, right knee (principal); M17.11 Unilateral primary osteoarthritis, right knee; I48.91 Unspecified atrial fibrillation; J45.909 Unspecified asthma, uncomplicated; G47.33 Obstructive sleep apnea (adult) (pediatric); Z79.01 Long term (current) use of anticoagulants; Z79.85 Long-term (current) use of injectable non-insulin antidiabetic drugs; Z79.899 Other long term (current) drug therapy; Z87.891 Personal history of nicotine dependence
CPT/HCPCS: 29881; 81025; J0131; J0171; J0690; J1100; J1885; J2003; J2250; J2405; J2704; J2795; J3010

== ENCOUNTER → 2024-11-18 05:56 | Outpatient (BNV) | payer OTHER, SELFPAY | PROVIDERS: Visit Provider Orthopaedic Surgery | DX: S83.231A Complex tear of medial meniscus, current injury, right knee, initial encounter (principal) | CPT/HCPCS: 29881 ==

== ENCOUNTER 2024-11-24 15:23 | Outpatient (AMB) | payer OTHER, SELFPAY ==
--- NOTE | 2024-11-24 15:33 | A.OFFVIS_ITS ---
Intake Visit Reasons: PO-Rt Knee 11/18/24 NE Intake Note: Steph is a 49 year old female who presents today for a post op appointment s/p right knee partial medial meniscectomy and chondroplasty 11/18/24 NE. Patient reports she is feeling a tightness sensation in her knee. Her pain has been minimal. Patient been walking without her crutches. Allergies No Known Allergies [No Known Allergies*] Allergy (Verified 11/24/24 15:45) HPI HPI PO-Rt Knee 11/18/24 NE: Details: Ms. Neal is a 49-year-old female who presents the office today status post right knee arthroscopy performed in 11/18/[address] Valdez for partial medial meniscectomy and chondroplasty. Overall the patient is doing very well. Her pain has improved. She still has pain on the posterior lateral aspect of the knee. She does have concerns with insurance denial of her surgery resulting in her own financial responsibility. [facility] Medical History Sleep apnea, obstructive Asthma Atrial fibrillation Surgical History History of appendectomy Family History Other Adopted Social History Household Members: Family Housing: Apartment Do you presently have visiting nurse or other home services: No Alcohol intake: current Alcohol intake frequency: holidays/special occasions only Comment: Socially Patient Tobacco Use Status: Former Tobacco user Cigarette Packs Per Day: 0.5 Years Smoked: 15 +/- e-Cigarette/Vaping Use: Never Used Second Hand Smoke Exposure: Yes service: No Current occupational status: employed 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 Full ROM. Able to dorsi/plantar flex. NVI. Assessment & Plan Assessment & Plan (1) Degenerative tear of meniscus of right knee: Code(s): M23.306 - Other meniscus derangements, unspecified meniscus, right knee Category: Medical Plan Ms. Neal is a 49-year-old female who presents the office today status post right knee arthroscopy performed in 11/18/[address] Valdez for partial medial meniscectomy and chondroplasty. Overall the patient is doing very well. Her pain has improved. She still has pain on the posterior lateral aspect of the knee. She does have concerns with insurance denial of her surgery resulting in her own financial responsibility. While in the office today sutures were removed and steri stips applied. She will resume back to normal activities as tolerated. She continues to have concerns with pain and pressure on the posterior aspect of the knee. She was told that she had a Ash's cyst prior to surgery and wants to know if this can be drained. I educated the patient on the likelihood of the cyst filling back up with fluid once drained especially after knee arthroscopy. She understands but would like to follow-up with Dr. Valdez in 4 weeks to repeat this discussion should her symptoms persist. Coding Level of Care Code Global (47455) Diagnoses Degenerative tear of meniscus of right knee M23.306
--- OUTSIDE RECORDS SUMMARY | 2024-11-24 18:16 | XMS_ITS | Data Portability ---
Author Organization [place] - [facility], Allergy Address [address] [place] [id number] Assessment Encounter Date Assessment Date Assessment LastModified [...] Recorded Time Impacted cerumen in right ear [id number] 93164 Active 2016 Impacted cerumen, right ear; Note: Date Diagnosed : 10/31/2016 4:26 PM (H61.21) Not Available [facility] 4 02:25:57 Acute tonsillit is 40918894 Active 2016 Acute tonsillit is, unspecifi ed; Note: Date Diagnosed : 10/31/2016 4:28 PM (J03.90) Not Available [facility] 4 02:26:11 Otalgia of right ear 1863556952 Active 2016 Otalgia, right ear; Note: Date Diagnosed : 10/31/2016 4:26 PM (H92.01) Not Available [facility] 4 02:25:51 Snoring 79660536 Active 2023 MINNIE CHRIS MD [address] [place] [address], [facility] [place], [address] , [facility] - [facility] 4 15:20:59 Problem Notes None recorded. Procedures Surgical History Date Name Laterality Status Provider Name and Address Organization Details Recorded Time Appendectomy completed Mandi Sullivan - [facility] 04/17/2024 14:56:12 Imaging Results Imaging Date Name Status LastModified by [facility] Details LastModified Time 10/31/2023 sleep study, diagnostic (PROC) completed [email or web address] Information not available 04/17/2024 15:15:49 Procedure Notes None recorded. Medical Equipment None Reported. Allergies Allergen ID Allergen Name Allergen Category Reaction Reaction Severity Criticality Documentation Date Start Date Code Code System Note Provider Name and Address Organization Details Recorded Time 92606 clindamyc in hydrochlo ride medicatio n other Not available Not available 01/07/2024 05155 RxNorm React ion: unkno wn, unspe cifie d;; Not Available [facility] 4 00:55:38 Medications Name Sig Start Date Stop Date Status Note LastModified by Organization Details LastModified Time acetamino phen 325 mg tablet TAKE 2 TABLETS BY MOUTH EVERY 4 HOURS NEEDED FOR PAIN active Not Available Not Available No t Available clindamyc in HCl 300 mg capsule 11/01 completed Medicati on ID: [id number] D uration Value: 14 Brand Name: clindamy [...] Updated DateTime 04/17/2024 172.72 cm 50.9 kg/m2 885017.44 g Mandi Castro MA - [facility] 04/17/2024 15:03:16 Social History Question Answer Notes LastModified by Organizat ion Details LastModified Time Tobacco Smoking Status Former Smoker Mandi deluna MA - [facility] 04/17/2024 14:57:07 What Is Your Level Of Alcohol Consumption? Occasional [email or web address] Information not available 04/17/2024 Sex: Unknown Functional Status None recorded. Mental Status None recorded. Family History Nothing Reported. Medical History Condition Response Heart Problems Y Anxiety Y Emphysema Y Depression Y Asthma Y Gynecological HistoryNo gynecological history recorded. Obstetrics History GPAL:G 0 P 0 0 0 0 Past Encounters Encounter ID Performer Location Encounter Start Date Encounter Closed Date Diagnosis/Indication Diagnosis SNOMED-CT Code Diagnosis ICD10 Code Diagnosis Note [id number] MINNIE CHRIS MD [facility] [address] [phone] 04/17/2024 14:13:00 04/17/2024 15:22:11 Snoring 57280615 R06.83 Health Concerns Section Related Observation LastModified by Organization Detai ls LastModified Time None Recorded Concern Status LastModified by Organization Details LastModified Time None Recorded Advance Directives Directive None Recorded Payers Encounter Date Sequence Insurance Name Policy Number Policy Pollard Covered Member ID Pollard Member ID Guarantor Name 04/17/2024 1 [facility] PLAN - MULTIPLAN (PPO) [id number] Steph Neal [id number] 1 Steph Neal Notes Date Note Type Note Provider Name and Address Organization Details Recorded Time 04/17/2024 text/html weight loss program tpjjysdb61/1/[address] [place] 46AHI 2.7 just started wegovy +snoringno hx of tonsil infections MINNIE CHRIS MD [address] [place] [address], [id number] - [facility] 04/17/2024 15:22:03 OBGyn Episode No OBEpisode recorded.
--- OUTSIDE RECORDS SUMMARY | 2024-11-24 18:16 | XMS_ITS | Data Portability ---
Author Organization [facility], Main Office Address [address] [facility] [address] [place] [address] Care Team Providers Care Mill Laborer Name Role Phone MINNIE CHRIS Gravel Hauler [facility] Pressurised Container Filler HODA RAHMAN Orthopedic Surgeon [facility] Urologist JESS DELA CRUZ Refining Still Operator MOLLY LAM Primary Care Provider Assessment Encounter Date Assessment Date Assessment LastModified by Organization Details LastModified Time 01/08/2023 01/08/2023 This service was provided using telemedicine. Patient consented to video & audio visit Patient was located in the [facility]. Provider was located in the office. [...] DO Not Attach Compendium, Do Not Delete/merge, [id number] 3 15:18:01 rapid flu (A+B) 2022 023 CARMELO In-Office Order, Internal Use Only DO Not Attach Compendium DO Not Attach Compendium, Do Not Delete/merge, [id number] 3 15:28:10 rsv (respi ratory syncyt ial virus) , rapidsoniya al 2022 023 CARMELO In-Office Order, Internal Use Only DO Not Attach Compendium DO Not Attach Compendium, Do Not Delete/merge, [id number] 3 15:44:39 urinal ysis, dipsti ck 2022 023 [email or web address] In-Office Order, Internal Use Only DO Not Attach Compendium DO Not Attach Compendium, Do Not Delete/merge, [id number] 3 14:39:10 Referral dermat ologis t referr al 2022 023 [facility], [address], [address], [place], [address], 4 10:36:34 Procedures None record ed. Surgeries None record ed. Imaging None record ed. Medication Orders Crispin tin 875 mg-125 mg tablet 2022 023 [id number], [address] [facility] [place], [id number], 3 15:18:13 benzon atate 100 mg capsul e 2022 023 [facility][id number], [address] [facility] [place], [id number], 3 15:18:16 albute rol sulfat e HFA 90 mcg/ac tuatio n aeroso l inhale r 2022 023 [facility][id number], [address] [facility] [place], [id number], 15:18:13 ciprof loxaci n 250 mg tablet 2022 [id number] [address] [facility], [place], [place], [id number], 15:55:22 Patient TargetsNo targets recorded. Patient Instructions Encounter Date Encounter Id Patient Instructions Last Modified By Organization Details Last Modified Time 01/08/2023 [id number] Follow up if no improvement or if symptoms worsen. [email or web address] Not available 01/08/2023 16:19:02 04/17/2023 [id number] tennis elbow: care instructions pmadden Not available 04/17/2023 16:48:46 tennis elbow: exercises pmadden Not available 04/17/2023 16:48:47 Follow up if no improvement or if symptoms worsen. pmadden Not available 04/17/2023 16:53:08 04/26/2023 [id number] 05/07/23- message left at home number to return my call, offer a hospital follow up as well as Pt is also due for a physical. 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 Referral for S kin lesion Referring Physician: Cabrera Mondragon, Internal Medicine, Encounter Date: 04/17/2023 Results Created Date Observation Date Name Description Value Unit Range Abnormal Flag Note LastModifiedBy Organization Detail LastModifiedTime 04/19/2004/19/2023 urina lysis , dipst ick Leukocytes Negati ve Not Available In-Office Order Internal Use Only DO Not Attach Compendium DO Not Attach Compendium, Do Not Delete/merge, [id number] 04/19/2023 13:29:11 04/19/2004/19/2023 urina lysis , dipst [...] 04/19/2023 urina lysis , dipst ick Specific [place] 1.005 Not Available In-Off ice Order Internal [...] DO Not Attach Compendium, Do Not Delete/merge, [id number] 04/19/2023 13:29:11 04/19/20 23 04/19/2023 urina lysis , dipst ick Appearance Clear Not Available In-Offi ce Order Internal Use Only DO Not Attach Compendium DO Not Attach Compendium, Do Not Delete/merge, [id number] 04/19/2023 13:29:11 04/19/20 23 04/19/2023 urina lysis , dipst ick Color Yellow Not Available In-Office Order Internal Use Only DO Not Attach Compendium DO Not Attach Compendium, Do Not Delete/merge, [id number] 04/19/2023 13:29:11 07/24/20 23 07/24/2023 rsv (resp irato ry syncy tial virus ), rapid , nasop haryn geal RSV, RAPID negati ve Not Available In-Office Order Internal Use Only DO Not Attach Compendium DO Not Attach Compendium, Do Not Delete/merge, [id number] 07/24/2023 15:19:04 07/24/20 23 07/24/2023 rapid flu (A+B) Flu A negati ve Not Available In-Office Order Internal Use Only DO Not Attach Compendium DO Not Attach Compendium, Do Not Delete/merge, [id number] 07/24/2023 14:52:40 07/24/20 23 07/24/2023 rapid flu (A+B) Flu B negati ve Not Available In-Office Order Internal Use Only DO Not Attach Compendium DO Not Attach Compendium, Do Not Delete/merge, [id number] 07/24/2023 14:52:40 07/24/20 23 07/24/2023 rapid SARS CoV 2 Ag, QL IA, respi rator y speci men RAPID SARS COV 2 negati ve Not Available In-Office Order Internal Use Only DO Not Attach Compendium DO Not Attach Compendium, Do Not Delete/merge, [id number] 07/24/2023 14:52:37 05/21/2005/21/2023 upper endos copy proce dure (EGD) (PROC ) No observ ation record ed. [email or web address] [facility] (Medical Records) [address] [place], [address], 05/21/2023 11:11:15 05/22/20 23 05/21/2023 US, abdom en, compl ete No observ ation record ed. [email or web address] [facility] (Medical Records) [address] [place], [address], 05/22/2023 12:50:47 Result Notes None recorded. Problems Name Problem SNOMED Code Status Onset Date Resolution Date Notes Provider Name and Address Organization Details Recorded Time Inflamma tory disorder of extremit y 661823896 Completed 201103/09/2014 IMPRESSI ON: REVIEWED XRAY WITH ALPHONSE JOHNSON EXAM CONSISTE NT WITH ACHILLES TENDONIT IS, AND SWELLING NO MASS FELT; RECORDED 03/25/20 12 9:59AM BY ELIZABETH DRAKE MA, ANNOTATI ON/SAMINA Mondragon PA-C [address], [place], [address], [facility] 6 12:28:32 Acute bronchit is [id number] Completed 201103/09/2014 RECORDED 03/25/20 12 9:59AM BY ELIZABETH DRAKE MA, ANNOTATI ON/ADDEN BAKARI Mondragon PA-C [address], [place], [address], [facility] 6 12:28:31 Acute pharyngi tis 050101345 Completed 201203/09/2014 IMPRESSI ON: + RAPID STREP, POSSIBLE RIGHT EARLY PERITONS ILLAR ABSCESS, TX WITH ABX/FLUI DS/NSAID S, IF WORSENIN G PAIN OR DIFFICUL TY SWALLOWI NG CALL OFFICE FOR ENT APPT.; RECORDED 12/16/19 13 10:04AM BY BARBARA ARTIS ON/ADDEN LUIS FERNANDO Jimenez, [facility] 6 15:19:04 Tobacco user [id number] Completed 201305/29/2014 RECORDED 01/17/20 14 10:42AM BY OMAYRA Saleem MD, OFFICE VISIT Bela Mondragon PA-C [address], [place], [address], [facility] 6 12:28:31 Patient status finding [id number] Completed 06/29/2016 LUIS FERNANDO Adams, [facility] 6 15:18:43 Backache [id number] Completed 06/29/2016 LUIS FERNANDO Adams, [facility] 6 15:18:46 Urinary incontin ence 473699896 Active Bela Mondragon PA-C [address] [facility] [address], [place], [address], [facility] 6 12:28:32 Cough [id number] Completed 201103/09/2014 RECORDED 03/25/20 12 9:58AM BY ELIZABETH DRAKE MA, ANNOTATI ON/ADDEN DUM LUIS FERNANDO Adams, [facility] 6 15:19:12 Degenera tion of interver tebral disc 52011421 Completed 201103/09/2014 RECORDED 03/25/20 12 9:59AM BY ELIZABETH DRAKE MA, ANNOTATI ON/ADDEN DUM Bela CHOE-C [address] [facility] [address], [place], [address], [facility] 6 12:28:32 Dizzines s and giddines s [id number] Completed 201203/09/2014 IMPRESSI ON: NORMAL EXAM; RECORDED 09/01/19 13 1:16PM BY CHERIE HERRERA MA, ANNOTATI ON/ADDEN DUM Bela CHOE-C [address], [place], [address], [facility] 6 12:28:32 Edema 591404038 Completed 201103/09/2014 IMPRESSI ON: BILATERA L, LUNGS CLEAR, C/W DEPENDEN T EDEMA, HAS TAKEN HCTZ IN THE PAST WITH [facility] ENT, ALSO REVIEWED DIET/LEG ELEVATIO N/WEIGHT LOSS/COM PRESSION STOCKING S; RECORDED 06/12/20 12 9:04AM BY BARBARA ARTIS ON/ADDEN DUM Brenda green MA null, [facility] 6 15:18:56 Elevated blood-pr essure reading without diagnosi s of hyperten yue 069989021 Active Bela Mondragon PA-C [address] [facility] [address], [place], [address], [facility] 6 12:28:32 Adult health examinat ion Completed 201103/09/2014 IMPRESSI ON: PAP IS UTD, PT TO START EXERCISI NG; RECORDED 07/08/20 12 1:24PM BY BARBARA GUIDRY ON/ADDEN DUM Bela Mondragon PA-C [address] [facility] [address], [place], [address], [facility] 6 12:28:32 Pure hypercho lesterol emia [id number] Completed 01/25/2017 Omayra garrett null, [facility] 7 14:59:23 Knee pain Completed 201203/09/2014 IMPRESSI ON: PT IN A MOMIN TO LEAVE SO DID NOT EXAMINE KNEES. WILL START WITH X-RAY SINCE MAY HAVE DJD. F/U WITH PCP FOR FURTHER ASSESSME NT. 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 SO IT COULD BE THIS.; RECORDED 05/09/20 13 10:00AM BY BARBARA GUIDRY ON/ADDEN DUM Omayra deluna, [facility] 9 15:55:45 Lipoma of skin and subcutan eous tissue (excludi ng face) 511070907 Completed 201103/09/2014 IMPRESSI ON: BACK; RECORDED 06/12/20 12 9:04AM BY BARBARA ARTIS ON/ADDEN DUM Bela Mondragon PA-C [address], [place], [address], [facility] 6 12:28:31 Low back pain [id number] Completed 201203/09/2014 RECORDED 09/05/19 13 10:23AM BY CHERIE HERRERA MA, BARBARA ON/ADDEN DUM Bela [employer] [address] [facility] [address], [place], [address], [facility] 6 12:28:32 Lumbar sprain 924660769 Completed 200903/09/2014 RECORDED 11/12/19 10 9:28AM BY BARBARA SWEENEY ON/ADDEN DUM Bela [employer] [address] [facility] [address], [place], [address], [facility] 6 12:28:32 Recurren t major depressi ve episodes 406637751 Active Bela [employer] [address] [facility] [address], [place], [address], [facility] 6 12:28:31 Malaise and fatigue 508039770 Completed 200903/09/2014 IMPRESSI ON: LONG TALK RE WEIGHT, ADDICTIV E EATING BEHAVIOR S, WILL OCNTINUE COUNSELI NG AND TRY TO INCREASE EXERCISE . SEES DR MORALES TOO. DOES NOT FEEL SHE NEEDS MEDS FOR DEPRESSI ON, FEELS WELL MOSTLY.; RECORDED 11/12/19 10 9:28AM BY BARBARA SWEENEY ON/ADDEN DUM Bela [employer] [address] [facility] [address], [place], [address], [facility] 6 12:28:32 Administ ration of measles and mumps and rubella vaccine Completed 201103/09/2014 RESOLVED DATE: 06/13/20 12; IMPRESSI ON: NEG MUMPS TITER, NEEDS REVACCIN ATION; RECORDED 06/13/20 12 12:55PM BY OMAYRA Saleem MD, OFFICE VISIT Bela CHOE-C [address], [place], [address], [facility] 6 12:28:32 Nausea [id number] Completed 201103/09/2014 IMPRESSI ON: RULE OUT PREGNANC Y; RECORDED 07/08/20 12 1:24PM BY BARBARA GUIDRY ON/ADDEN DUM Bela CHOE-C [address] [facility] [address], [place], [address], [facility] 6 12:28:32 Neck pain [id number] Completed 01/25/2017 Omayra garrett [facility] 7 14:59:05 Lymphedeunice nevarez [id number] Completed 201103/09/2014 RECORDED 03/25/20 12 9:59AM BY ELIZABETH DRAKE MA, CHINTANATI ON/ADDEN DUM Bela CHOE-C [address], [place], [address], [facility] 6 12:28:31 Obesity 053833457 Completed 01/08/2020 Bela CHOE-C [address], [place], [address], [facility] 0 17:12:44 Osteoart hritis of knee 048571331 Active Bela CHOE-C [address], [place], [address], [facility] 6 12:28:32 Otalgia 29908784 Completed 201103/09/2014 RECORDED 03/25/20 12 9:59AM BY ELIZABETH DRAKE MA, BARBARA ON/ADDEN DUM Bela [employer] [address] [facility] [address], [place], [address], [facility] 6 12:28:31 Synoviti s/tenosy novitis - hand [id number] Completed 200903/09/2014 IMPRESSI ON: POSSIBLE CARPAL TUNNEL SYNDROME ; RECORDED 11/12/19 10 9:28AM BY BARBARA SWEENEY ON/ADDEN DUM Bela [employer] [address] [facility] [address], [place], [address], [facility] 6 12:28:32 Joint pain in ankle and foot Completed 200903/09/2014 IMPRESSI ON: FXT FIBULA AND OTHER IN 01/01, STILL WITH AIN EXPECTED , TX WITH ULTRAM SINCE NO CONTRAIN DICATION S AND USE MOTRIN 800MG TID WITH FOOD; RECORDED 11/12/19 10 9:27AM BY BARBARA SWEENEY ON/ADDEN DUM Bela [employer] [address] [facility] [address], [place], [address], [facility] 6 12:28:32 Pain in thoracic spine 861533284 Completed 200903/09/2014 IMPRESSI ON: MUSCULAR , STRETCH; RECORDED 11/12/19 10 9:27AM BY BARBARA SWEENEY ON/ADDEN DUM Bela [employer] PA-C [address] [facility] [address], [place], [address], [facility] 6 12:28:32 Skin sensatio n disturba nme 51355159 Completed 201103/09/2014 IMPRESSI ON: AT SITE OF PREVIOUS CONTUSIO N FROM ABOUT A MONTH AGO, WITHOUT PAIN OR WITHOUT SIGNS OF CELLULIT IS, FOR NOW WILL MONITOR; RECORDED 06/12/20 12 9:03AM BY BARBARA ARTIS ON/ADDEN DUM Bela Mondragon PA-C [address], [place], [address], [facility] 6 12:28:32 Immuniza tion refused Completed 201203/09/2014 RECORDED 05/09/20 13 10:00AM BY BARBARA GUIDRY ON/ADDEN DUM Bela Mondragon NV-C [address], [place], [address], [facility] 6 12:28:32 Plantar fascial fibromat osis 47775112 Completed 201103/09/2014 RECORDED 06/12/20 12 9:04AM BY BARBARA ARTIS ON/ADDEN DUM Bela Mondragon NV-C [address] [facility] [address], [place], [address], [facility] 6 12:28:32 Pyelonep hritis 62388675 Completed 201103/09/2014 IMPRESSI ON: SEE ABOVE, PT TO FINISH BACTRIM TO ER IF CANNOT TOLERATE PO WITH VOMITING OR FEELS DIZZY.., PT WILL CALL AND CHECK WITH RUSSIAN TEACHER TOMORROW ABOUT MAKING SURE SENSITIV ITIES MATCH BACTRIM, FLUIDS REST; RECORDED 03/25/20 12 9:59AM BY ELIZABETH DRAKE MA, BARBARA ON/ADDEN DUM Bela Mondragon NV-C [address], [place], [address], [facility] 6 12:28:31 Hypertro phic conditio n of skin 91173718 Completed 201203/09/2014 IMPRESSI ON: AFTER WEIGHT LOSS. GETS INTERTRI GO FUNGAL INFECTIO NS DUE TO THIS; RECORDED 05/09/20 13 10:00AM BY BARBARA GUIDRY ON/ADDEN DUM Bela Mondragon PA-C [address] [facility] [address], [place], [address], [facility] 6 12:28:32 Influenz a vaccine needed [id number] 06 Completed 201103/09/2014 RECORDED 06/12/20 12 9:13AM BY PRATIBHA SILVEIRA, OFFICE VISIT Bela Mondragon PA-C [address] [facility] [address], [place], [address], [facility] 6 12:28:32 Pain in limb 42803552 Completed 201103/09/2014 IMPRESSI ON: PT TO SET UP APPT; RECORDED 03/25/20 12 9:59AM BY ELIZABETH DRAKE MA, ANNOTATI ON/ADDEN DUM Bela Mondragon PA-C [address] [facility] [address], [place], [address], [facility] 6 12:28:32 Inflamma tion of sacroili ac joint [id number] Completed 201103/09/2014 IMPRESSI ON: RIGHT SIDED PAIN, CHANGE TO IBUPROFE N WITH FOOD AND TYLENOL WITH CODEINE AT NIGHT. PE 05/[address] UP PT HAS PAPERWOR K; RECORDED 07/08/20 12 1:24PM BY JULEE NESBITT I, BARBARA ON/ADDEN DUM Bela Mondragon PA-C [address] [facility] [address], [place], [address], [facility] 6 12:28:32 Morbid obesity 979046829 Active Bela Mondragon PA-C [address] [facility] [address], [place], [address], [facility] 6 12:28:31 Shoulder joint pain 964674234 Completed 201103/09/2014 IMPRESSI ON: SOUNDS LIKE BURSISIT PT TO SEE [facility] FOR INJECTIO N; RECORDED 03/25/20 12 9:59AM BY ELIZABETH DRAKE MA, ANNOTATI ON/ADDEN DUM Bela MOCK[employer] [address] [facility] [address], [place], [address], [facility] 6 12:28:32 Chronic sinusiti s 56552995 Completed 201103/09/2014 RECORDED 03/25/20 12 9:59AM BY ELIZABETH DRAKE MA, ANNOTATI ON/ADDEN DUM Bela Mondragon PA-C [address], [place], [address], [facility] 6 12:28:31 Administ ration of diphther ia and tetanus vaccine Completed 201103/09/2014 RECORDED 07/08/20 12 1:24PM BY JULEE NESBITT I, CHINTANATI ON/ADDEN DUM Bela Mondragon PA-C [address], [place], [address], [facility] 6 12:28:32 Urinary tract infectio us disease 23158496 Completed 200803/09/2014 RECORDED 12/07/19 09 8:54AM BY BRENDA STEINER MA, BARBARA ON/ADDEN DUM Bela Mondragon PA-C [address], [place], [address], [facility] 6 12:28:31 Wheezing 65264367 Completed 201103/09/2014 RECORDED 03/25/20 12 9:59AM BY ELIZABETH DRAKE MA, ANNOTATI ON/ADDEN DUM Bela Mondragon PA-C [address], [place], [address], [facility] 6 12:28:32 Inflamma tory disorder of extremit y 172926057 Completed 201104/05/2014 IMPRESSI ON: REVIEWED XRAY WITH ALPHONSE JOHNSON EXAM CONSISTE NT WITH ACHILLES TENDONIT IS, AND SWELLING NO MASS FELT; RECORDED 03/25/20 12 9:59AM BY ELIZABETH DRAKE MA, ANNOTATI ON/ADDEN DUM Bela Mondragon PA-C [address], [place], [address], [facility] 6 12:28:32 Acute bronchit is 16082516 Completed 201104/05/2014 RECORDED 03/25/20 12 9:59AM BY ELIZABETH DRAKE MA, BARBARA ON/ADDEN DUM Bela CHOE-C [address], [place], [address], [facility] 6 12:28:31 Acute pharyngi tis 650886462 Completed 201204/05/2014 IMPRESSI ON: + RAPID STREP, POSSIBLE RIGHT EARLY PERITONS ILLAR ABSCESS, TX WITH ABX/FLUI DS/NSAID S, IF WORSENIN G PAIN OR DIFFICUL TY SWALLOWI NG CALL OFFICE FOR ENT APPT.; RECORDED 12/16/19 13 10:04AM BY BARBARA ARTIS ON/ADDEN DUM Brenda green MA null, [facility] 6 15:19:04 Cough 54705013 Completed 201104/05/2014 RECORDED 03/25/20 12 9:58AM BY ELIZABETH DRAKE MA, ANNOTATI ON/ADDEN DUM Brenda green [facility], [facility] 6 15:19:12 Degenera tion of interver tebral disc 99614689 Completed 201104/05/2014 RECORDED 03/25/20 12 9:59AM BY ELIZABETH DRAKE MA, BARBARA ON/ADDEN DUM Bela CHOE-C [address], [place], [address], [facility] 6 12:28:32 Dizzines s and giddines s 222291280 Completed 201204/05/2014 IMPRESSI ON: NORMAL EXAM; RECORDED 09/01/19 13 1:16PM BY CHERIE HERRERA MA, BARBARA ON/ADDEN DUM Bela Mondragon PA-C [address], [place], [address], [facility] 6 12:28:32 Edema [id number] Completed 201104/05/2014 IMPRESSI ON: BILATERA L, LUNGS CLEAR, C/W DEPENDEN T EDEMA, HAS TAKEN HCTZ IN THE PAST WITH [facility] ENT, ALSO REVIEWED DIET/LEG ELEVATIO N/WEIGHT LOSS/COM PRESSION STOCKING S; RECORDED 06/12/20 12 9:04AM BY BARBARA ARTIS ON/ADDEN DUM Brenda green [place] null, [facility] 6 15:18:56 Adult health examinat ion Completed 201304/05/2014 IMPRESSI ON: PAP IS OVERDUE, PT WILL ARRANGE THIS, PT HAS AN IUD IN PLACE. PT WILL WORK ON DIET AND EXERCISE .; RECORDED 01/17/20 14 10:22AM BY BARBARA ARTIS ON/ADDEN DUM Bela CHOE-C [address], [place], [address], [facility] 6 12:28:32 Knee pain Completed 02/02/2019 [facility] 15[facility]45 Lipoma of skin and subcutan eous tissue (excludi ng face) 687787586 Completed 201104/05/2014 IMPRESSI ON: BACK; RECORDED 06/12/20 12 9:04AM BY BARBARA ARTIS ON/ADDEN DUM Bela MOCKC [address], [place], [address], [facility] 6 12:28:31 Low back pain 413877307 Completed 201204/05/2014 IMPRESSI ON: X 1 DAY, OCCURED WHILE BENDING OVER; RECORDED 09/05/19 13 10:23AM BY CHERIE HERRERA MA, BARBARA ON/ADDEN DUM Bela CHOE-C [address], [place], [address], [facility] 6 12:28:32 Lumbar sprain 192002034 Completed 200904/05/2014 RECORDED 11/12/19 10 9:28AM BY BARBARA SWEENEY ON/ADDEN DUM Bela Mondragon [facility] [address] [facility] [address], [place], [address], [facility] 6 12:28:32 Malaise and fatigue 246725667 Completed 200904/05/2014 IMPRESSI ON: LONG TALK RE WEIGHT, ADDICTIV E EATING BEHAVIOR S, WILL OCNTINUE COUNSELI NG AND TRY TO INCREASE EXERCISE . SEES DR MORALES TOO. DOES NOT FEEL SHE NEEDS MEDS FOR DEPRESSI ON, FEELS WELL MOSTLY.; RECORDED 11/12/19 10 9:28AM BY BARBARA SWEENEY ON/ADDEN DUM Bela [facility] [address] [facility] [address], [place], [address], [facility] 6 12:28:32 Administ ration of measles and mumps and rubella vaccine Completed 201104/05/2014 RESOLVED DATE: 06/13/20 12; IMPRESSI ON: NEG MUMPS TITER, NEEDS REVACCIN ATION; RECORDED 06/13/20 12 12:55PM BY OMAYRA Saleem MD, OFFICE VISIT Bela Mondragon [facility] [address] [facility] [address], [place], [address], [facility] 6 12:28:32 Nausea [id number] Completed 201104/05/2014 IMPRESSI ON: RULE OUT PREGNANC Y; RECORDED 07/08/20 12 1:24PM BY BARBARA GUIDRY ON/[facility] [address] [facility] [address], [place], [address], [facility] 6 12:28:32 Lymphede ny 482265374 Completed 201104/05/2014 RECORDED 03/25/20 12 9:59AM BY ELIZABETH DRAKE MA, CHINTANATI ON/ADDEN DUM Bela Mondragon PA-C [address], [place], [address], [facility] 6 12:28:31 Otalgia 42983897 Completed 201104/05/2014 RECORDED 03/25/20 12 9:59AM BY ELIZABETH DRAKE MA, ANNOTLUCIA ON/ADDEN DUM Bela Mondragon PA-C [address], [place], [address], [facility] 6 12:28:31 Synoviti s/tenosy novitis - hand [id number] Completed 200904/05/2014 IMPRESSI ON: POSSIBLE CARPAL TUNNEL SYNDROME ; RECORDED 11/12/19 10 9:28AM BY BARBARA SWEENEY ON/ADDEN DUM Bela Mondragon PA-C [address], [place], [address], [facility] 6 12:28:32 Joint pain in ankle and foot Completed 200904/05/2014 IMPRESSI ON: FXT FIBULA AND OTHER IN 01/01, STILL WITH AIN EXPECTED , TX WITH ULTRAM SINCE NO CONTRAIN DICATION S AND USE MOTRIN 800MG TID WITH FOOD; RECORDED 11/12/19 10 9:27AM BY BARBARA SWEENEY ON/ADDEN DUM Bela Mondragon PA-C [address], [place], [address], [facility] 6 12:28:32 Pain in thoracic spine 065894057 Completed 200904/05/2014 IMPRESSI ON: MUSCULAR , STRETCH; RECORDED 11/12/19 10 9:27AM BY BARBARA SWEENEY ON/ADDEN DUM Bela Mondragon PA-C [address], [place], [address], [facility] 6 12:28:32 Skin sensatio n disturba nce 01010415 Completed 201104/05/2014 IMPRESSI ON: AT SITE OF PREVIOUS CONTUSIO N FROM ABOUT A MONTH AGO, WITHOUT PAIN OR WITHOUT SIGNS OF CELLULIT IS, FOR NOW WILL MONITOR; RECORDED 06/12/20 12 9:03AM BY BARBARA ARTIS ON/ADDEN DUM Bela Mondragon PA-C [address], [place], [address], [facility] 6 12:28:32 Knee pain Completed 201104/05/2014 RECORDED 03/25/20 12 9:59AM BY ELIZABETH DRAKE MA, BARBARA ON/ADDEN DUM Omayra garrett [facility] 9 15:55:45 Immuniza tion refused Completed 201204/05/2014 RECORDED 05/09/20 13 10:00AM BY BARBARA GUIDRY ON/ADDEN DUM Bela BlisMedia PA-C [address], [place], [address], [facility] 6 12:28:32 Plantar fascial fibromat osis 30496418 Completed 201104/05/2014 RECORDED 06/12/20 12 9:04AM BY BARBARA ARTIS ON/ADDEN DUM Bela Mondragon PA-C [address], [place], [address], [facility] 6 12:28:32 Pyelonep hritis 52146501 Completed 201104/05/2014 IMPRESSI ON: SEE ABOVE, PT TO FINISH BACTRIM TO ER IF CANNOT TOLERATE PO WITH VOMITING OR FEELS DIZZY.., PT WILL CALL AND CHECK WITH RUSSIAN TEACHER TOMORROW ABOUT MAKING SURE SENSITIV ITIES MATCH BACTRIM, FLUIDS REST; RECORDED 03/25/20 12 9:59AM BY ELIZABETH DRAKE MA, BARBARA ON/ADDEN DUM Bela Mondragon PA-C [address], [place], [address], [facility] 6 12:28:31 Hypertro phic conditio n of skin 72228696 Completed 201204/05/2014 IMPRESSI ON: AFTER WEIGHT LOSS. GETS INTERTRI GO FUNGAL INFECTIO NS DUE TO THIS; RECORDED 05/09/20 13 10:00AM BY BARBARA GUIDRY ON/ADDEN DUM Bela CHOE-C [address] [facility] [address], [place], [address], [facility] 6 12:28:32 Influenz a vaccine needed [id number] 06 Completed 201104/05/2014 RECORDED 06/12/20 12 9:13AM BY PRATIBHA SILVEIRA, OFFICE VISIT Bela CHOE-C [address] [facility] [address], [place], [address], [facility] 6 12:28:32 Pain in limb 75272308 Completed 201104/05/2014 IMPRESSI ON: PT TO SET UP APPT; RECORDED 03/25/20 12 9:59AM BY ELIZABETH DRAKE MA, BARBARA ON/ADDEN DUM Bela Mondragon PA-C [address] [facility] [address], [place], [address], [facility] 6 12:28:32 Inflamma tion of sacroili ac joint 58803320 Completed 201104/05/2014 IMPRESSI ON: RIGHT SIDED PAIN, CHANGE TO IBUPROFE N WITH FOOD AND TYLENOL WITH CODEINE AT NIGHT. PE 05/[address] UP PT HAS ANGEL K; RECORDED 07/08/20 12 1:24PM BY BARBARA GUIDRY ON/ADDEN DUM Bela MOCKC [address] [facility] [address], [place], [address], [facility] 6 12:28:32 Shoulder joint pain 069336041 Completed 201104/05/2014 IMPRESSI ON: SOUNDS LIKE BURSISIT PT TO SEE [facility]; RECORDED 03/25/20 12 9:59AM BY ELIZABETH DRAKE MA, BARBARA ON/ADDEN DUM Bela Mondragon PA-C [address], [place], [address], [facility] 6 12:28:32 Chronic sinusiti s 44259959 Completed 201104/05/2014 RECORDED 03/25/20 12 9:59AM BY ELIZABETH DRAKE MA, BARBARA ON/ADDEN DUM Bela Mondragon PA-C [address] [facility] [address], [place], [address], [facility] 6 12:28:31 Administ ration of diphther ia and tetanus vaccine Completed 201104/05/2014 RECORDED 07/08/20 12 1:24PM BY BARBARA GUIDRY ON/ADDEN DUM Bela Mondragon PA-C [address] [facility] [address], [place], [address], [facility] 6 12:28:32 Urinary tract infectio us disease 47018058 Completed 200804/05/2014 RECORDED 12/07/19 09 8:54AM BY BRENDA STEINER MA, BARBARA ON/ADDEN DUM Bela Mondragon PA-C [address] [facility] [address], [place], [address], [facility] 6 12:28:32 Wheezing 31742134 Completed 201104/05/2014 RECORDED 03/25/20 12 9:59AM BY ELIZABETH DRAKE MA, BARBARA ON/ADDEN DUM Bela Mondragon PA-C [address] [facility] [address], [place], [address], [facility] 6 12:28:32 Dysuria 85492547 Completed 06/29/2016 Brenda green [place] null, [facility] 6 15:19:10 Acute pharyngi tis 862838165 Completed 06/29/2016 LUIS FERNANDO Adams, [facility] 6 15:19:04 Acute vaginiti s 28267601 Completed 06/29/2016 LUIS FERNANDO Adams, [facility] 6 15:18:52 Cough 04616831 Completed 06/29/2016 LUIS FERNANDO Adams, [facility] 6 15:19:12 Palpitat ions 97069926 Completed 01/25/2017 Omayra deluna [facility] 7 14:59:02 Spasm of back muscles 132225872 Completed 01/25/2017 Omayra deluna [facility] 7 14:59:27 Atrial fibrilla tion 19383005 Completed 02/02/2019 Omayra deluna [facility] 9 15:56:00 Spinal stenosis in cervical region 43938887 Completed 11/30/2014 mri does not show this Bela CHOE-C [address], [place], [address], [facility] 6 12:28:32 Snoring 71646198 Completed 01/25/2017 Omayra deluna [facility] 7 14:58:59 Thyroid nodule 484453465 Active Bela Giancarlo CHOE-C [address], [place], [address], [facility] 6 12:28:31 Insomnia 161353367 Active Belajihan Mondragon PA-C [address], [place], [address], [facility] 6 12:28:31 Degenera tion of thoracic interver tebral disc 59766806 Active T1/T2 Bela CHOE-C [address], [place], [address], [facility] 6 12:28:32 Degenera tion of cervical interver tebral disc 48605368 Completed 01/25/2017 Omayra Curiel-Pamela deluna, [facility] 7 14:59:09 Edema 388453077 Completed 06/29/2016 Brenda green [place] null, [facility] 6 15:18:56 Rapid atrial fibrilla tion 684566689 Completed 01/27/2018 Omayra garrett null, [facility] 8 11:21:10 Paroxysm al atrial fibrilla tion 087484799 Active Omayra Curiel-Pamela [email or web address] null, [facility] 6 15:17:25 Panic disorder 057948957 Completed 02/02/2019 Omayra Curiel-Pamela marcelinonmarta deluna, [facility] 9 15:55:48 Patent foramen ovale 719605592 Active Omayra Curiel-D [email or web address] null, [facility] 6 15:17:25 Joint pain 20995847 Completed 01/25/2017 Omayra garrett null, [facility] 7 14:59:13 Anxiety 81578799 Completed 01/08/2020 Bela Mondragon PA-C [address], [place], [address], [facility] 0 17:12:31 Asthma 960184158 Completed 201701/08/2020 Bela CHOE-Man [address], [place], [address], [facility] 0 17:12:58 Ex-smoke r 7412406 Active 2017 Brenda green [place] null, [facility] 8 15:42:54 Small bowel obstruct ion 345830548 Active 2018 Brenda green [place] null, [facility] 9 09:46:54 Generali zed anxiety disorder 72270638 Active 2019 Bela Mondragon PA-C [address], [place], [address], [facility] 0 17:12:32 Mild intermit tent asthma 436778451 Active 2019 Bela Mondragon PA-C [address], [place], [address], [facility] 0 17:13:08 [place] [facility] 944439590 Active 2019 Bela MOCKC [address], [place], [address], [facility] 0 17:13:31 Obstruct jefry sleep apnea syndrome 55496024 Active 2022 Cabrera Mondragon PA-C [address], [place], [address], [facility] 3 17:09:42 Pain of left hip joint 37104511615 9100 Active 2022 Cabrera Mondragon PA-C [address], [place], [address], [facility] 3 17:10:00 Lateral epicondy litis of left humerus 93736477257 9100 Active 2022 Cabrera Mondragon PA-C [address], [place], [address], [facility] 3 13:33:40 Problem Notes None recorded. Procedures Surgical History Date Name Laterality Status Provider Name and Address Organization Details Recorded Time 05/21/20 23 Endoscopic us exam esoph completed Leslie Alba [facility] 05/21/2023 11:10:55 04/20/20 23 laparoscopic appendectomy completed Leslie Alba [facility] 04/22/2023 10:12:44 04/20/20 23 Appendectomy completed Avelina Encinas RN [facility] 04/30/2023 10:29:16 04/19/20 23 Appendectomy completed Avelina Encinas RN [facility] 04/25/2023 09:55:00 11/24/19 22 cardioversion completed Avelina Encinas RN [facility] 11/27/2021 13:27:24 01/24/20 17 extraction of wisdom tooth completed Brenda zurita MA [facility] 01/12/2019 09:34:35 Mammogram screening completed Brenda zurita [facility] 06/29/2016 15:20:32 Colonoscopy completed Brenda zurita [facility] 06/29/2016 15:20:36 Imaging Results Imaging Date Name Status LastModified by Organiz ation Details LastModified Time 05/21/2023 upper endoscopy procedure (EGD) (PROC) completed [email or web address] [facility] (Medical Records) [address] [place], [address], 05/21/2023 11:11:15 05/21/2023 US, abdomen, complete completed [email or web address] [facility] (Medical Records) [address] [place], [address], 05/22/2023 12:50:47 Procedure Notes None recorded. Medical [...] RECORDED 03/07/20 11 10:20AM BY JULEE NESBITT I MEDICATI ON AUTO-[place]IL[place] CTIVATIO N; Not Available Not Available Not Available hydrocodo ne-homatr opine 5 mg-1.5 mg/5 mL oral solution 06/29 completed Not Available Not Available Not [...] 12/16 completed RECORDED 12/17/19 10 2:04PM BY JASBIR LUGO, ANNOTATI ON/SAMINA VILLEGAS; Not Available Not Available Not [...] RECORDED 09/05/19 13 12:18PM BY ANDREWS ONTIVEROS, PALaraC, OFFICE VISIT; Not Available Not Available Not [...] cm LUIS FERNANDO Goldstein [facility] 01/08/2023 15:48:36 Date Recorded Body height Body mass index (BMI) Body weight Heart rate Oxygen saturation Oxygen saturation in Arterial blood by Pulse oximetry Body temperature Systolic blood pressure Diastolic blood pressure Provider Name and Address Organization Details Last Updated DateTime 171.45 cm 50.2 kg/m2 923285. 52 g 60 /min 97 % 97 % 98.3 [degF] 138 mm[Hg] 87 mm[Hg] [facility] [place] 3 15:56:22 Date Recorded Body height Body mass index (BMI) Body weight Heart rate Oxygen saturation Oxygen saturation in Arterial blood by Pulse oximetry Body temperature Systolic blood pressure Diastolic blood pressure Provider Name and Address Organization Details Last Updated DateTime 3 171.45 cm 49.2 kg/m2 845216. 97 g 94 /min 96 % 96 % 97.8 [degF] 113 mm[Hg] 80 mm[Hg] Isela Metz [facility] 3 13:21:43 Date Recorded Body height Body mass index (BMI) Body weight Heart rate Oxygen saturation Oxygen saturation in Arterial blood by Pulse oximetry Body temperature Systolic blood pressure Diastolic blood pressure Provider Name and Address Organization Details Last Updated DateTime 3 171.45 cm 48.1 kg/m2 834868. 82 g 68 /min 96 % 96 % 98.3 [degF] 160 mm[Hg] 98 mm[Hg] Isela Metz [facility] 3 14:57:00 Social History Question Answer Notes LastModified by Organizat ion Details LastModified Time Tobacco Smoking Status Former Smoker Cherie deluna [facility] 05/18/2014 10:29:49 Do You Have An Advance Directive? No [email or web address] Information not available 06/20/2022 What Is Your Level Of Alcohol Consumption? Occasional [email or web address] Information not available 12/29/2014 Is Blood Transfusion Acceptable In An Emergency? Yes [email or web address] Information not available 01/20/2016 What Is Your Level Of Caffeine Consumption? Occasional Information not available 12/29/2014 How Much Tobacco Do You Chew? None Information not available 06/29/2016 In The 14 Days Before Symptom Onset, Have You Had Close Contact With A Laboratory-confi rmed COVID-19 While That Case Was Ill? No [email or web address] Information not available 06/20/2022 In The 14 Days Before Symptom Onset, Have You Had Close Contact With A Person Who Is Under Investigation For COVID-19 While That Person Was Ill? No [email or web address] Information not available 06/20/2022 Have You Been To An Area Known To Be High Risk For COVID-19? No [email or web address] Information not available 06/20/2022 Are You Currently Employed? Yes [email or web address] Information not available 12/29/2014 What Type Of Diet Are You Following? REGULAR [email or web address] Information not available 12/29/2014 Which Illicit Or Recreational Drugs Have You Used? 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 With Others (Juan Carlos) And 2 Daughters [email or web address] Information not available 06/20/2022 Do You Take Precautions To Prevent Distracted Driving? Yes [email or web address] Information not available 01/20/2016 How Often Do You Need To Have Someone Help You When You Read Instructions, Pamphlets, Or Other Written Material From Your Doctor Or Pharmacy? Sometimes [email or web address] Information not available 01/20/2016 Have You Served [...] Of Your Most Recent Tobacco Screening? 06/20/2022 [email or web address] Information not available 06/20/2022 How Many Children Do You Have? 2 Adriana And Renee Information not available 03/27/2018 What Is Your Current Pack Years? 10packyears [email or web address] Information not available 06/20/2022 Do You Use Protection During Sex? No Information not available 06/29/2016 Seat Belts Used Routinely Yes [email or web address] Information not available 06/20/2022 Are You Sexually Active? Yes Information not available 06/29/2016 Smoke Alarm In Home Yes [email or web address] Information not available 06/20/2022 Are You Passively Exposed To Smoke? No Information not available 06/29/2016 General Stress Level Medium [email or web address] Information not available 06/20/2022 Do You Use Sunscreen Routinely? Yes Information not available 12/29/2014 How Many Years Have You Smoked Tobacco? 10 [email or web address] Information not available 12/29/2014 Do You Or Have You Ever Used Any Other Forms Of Tobacco Or Nicotine? No [email or web address] Information not available 06/20/2022 Sex: Unknown Functional Status Question Answer Note LastModified by Organizat ion Details LastModified Time Are you able to walk? YESWOREST [email or web address] Information not available 06/20/2022 Are you able to care for yourself? Yes [email or web address] Information not available 12/29/2014 What is your [...] mL dose 02/28/2021 completed LUIS FERNANDO Artis [facility] [place] 12/13/2021 11:25:33 COVID-19, mRNA, LNP-S, PF, 30 mcg/0.3 mL dose 03/21/2021 completed Pratibha Silveira [facility] 12/13/2021 11:25:33 MMR 10/21/2002 completed Not Available [facility] 03/09/2014 14:00:38 Tdap 06/12/2012 completed Not Available [facility] 03/09/2014 14:00:38 MMR 06/12/2012 completed Not Available [facility] 03/09/2014 14:00:38 Past Encounters Encounter ID Performer Location Encounter Start Date Encounter Closed Date Diagnosis/Indication Diagnosis SNOMED-CT Code Diagnosis ICD10 Code Diagnosis Note [id number] autoEComm erce [address] [facility] [place] [address] 11/13/2006 00:00:00 [id number] autoEComm erce [address] [facility] [place] [address] 12/23/2006 00:00:00 [id number] autoEComm erce [address] [facility] [place] [address] 07/28/2007 00:00:00 [id number] autoEComm erce [address] [facility] [place] [address] 12/06/2008 00:00:00 [id number] autoEComm erce [address] [facility] [place] [address] 03/25/2009 00:00:00 [id number] autoEComm erce [address] [facility] [place] [address] 04/28/2009 00:00:00 [id number] autoEComm erce [address] [facility] [place] [address] 11/11/2009 00:00:00 [id number] autoEComm erce [address] [facility] [place] [address] 12/20/2009 00:00:00 [id number] autoEComm erce [address] [facility] [place] [address] 02/17/2010 00:00:00 [id number] [address]Comm erce [address] [place] [address] 07/25/2010 00:00:00 [id number] autoEComm erce [address] [place] [address] 09/13/2010 00:00:00 [id number] autoEComm erce [address] [place] [address] 11/11/2010 00:00:00 [id number] autoEComm erce [address] [place] [address] 02/01/2011 00:00:00 [id number] autoEComm erce [address] [place] [address] 02/05/2011 00:00:00 [id number] autoEComm erce [address] [facility] [address] [place] [address] 02/06/2011 00:00:00 [id number] autoEComm erce [address] [facility] [address] [place] [address] 02/15/2011 00:00:00 [id number] autoEComm erce [address] [facility] [address] [place] [address] 03/08/2011 00:00:00 [id number] autoEComm erce [address] [facility] [place] [address] 11/26/2011 00:00:00 [id number] autoEComm erce [address] [facility] [address] [place] [address] 11/30/2011 00:00:00 [id number] autoEComm erce [address] [facility] [place] [address] 01/09/2012 00:00:00 [id number] autoEComm erce [address] [facility] [address] [place] [address] 03/25/2012 00:00:00 [id number] autoEComm erce [address] [facility] [address] [place] [address] 06/12/2012 00:00:00 [id number] autoEComm erce [address] [facility] [place] [address] 07/08/2012 00:00:00 [id number] autoEComm erce [address] [facility] [place] [address] 09/01/2012 00:00:00 [id number] autoEComm erce [address] [facility] [place] [address] 09/05/2012 00:00:00 [id number] autoEComm erce [address] [facility] [place] [address] 10/16/2012 00:00:00 [id number] autoEComm erce [address] [facility] [place] [address] 12/15/2012 00:00:00 [id number] autoEComm erce [address] [facility] [place] [address] 05/09/2013 00:00:00 [id number] autoEComm erce [address] [facility] [place] [address] 07/27/2013 00:00:00 [id number] autoEComm erce [address] [facility] [place] [address] 12/25/2013 00:00:00 [id number] autoEComm erce [address] [facility] [place] [address] 01/16/2014 00:00:00 [id number] Elizabeth Drake MA Main Office [address] [facility] [address] [place] [address] 05/18/2014 10:10:59 05/18/2014 10:49:51 Dysuria 59516498 UA c/w UTI, will tx and send culture Acute pharyngitis 977465843 rapid strep neg. [id number] Pratibha Silveira MA Main Office [address] [facility] [address] [place] [address] 05/29/2014 11:51:21 05/29/2014 12:23:45 Cough 14876374 Sounds inflammato ry in nature likely post viral infection vs allergy related. No current evidence for bacterial process. Will address inflammati on/broncho constricti on while waiting to see if allergy rx helps. Would need re-eval and consider of abx/CXR if persistent or sputum becomes purulent. [id number] Main Office [address] [address] [place] [address] 06/08/2014 13:52:54 06/08/2014 14:36:30 Palpitations 68363087 likely the endocrine system resetting itself after being on prednisone . reassuranc e. call if worsening [id number] Jena Dominique Main Office [address] [address] [place] [address] 09/20/2014 11:26:27 09/20/2014 11:45:06 Backache 908970863 Continue cyclobenza tete and finish course of prednisone , just started 2d ago, if back pain persists/w hernandoens will refer to PT. [id number] William Johnson Main Office [address] [address] [place] [address] 11/08/2014 09:40:15 11/08/2014 10:41:46 Acute pharyngitis 558932638 Cough 60092131 with fev er and body aches on day 6, suspect bacterial process such as pneumonia. will treat empiricall y. f/u if worsening [id number] Jena Dominique Main Office [address] [address] [place] [address] 11/17/2014 16:24:25 11/17/2014 17:32:05 Palpitations 53059676 Atrial fibrillation 81496344 new onset with RVR. not clear if pain in her upper back is related to the afib. to ER for lowering HR and further assessment for new onset afib Neck pain 69289975 with radiating sxs. likely a cervical radiculopa thy. but it is possible that it is something cardiac related to the afib. will be further assessed in the ER. [id number] Irina Peacock MA Main Office [address] [address] [place] [address] 11/23/2014 13:19:45 11/23/2014 14:23:50 Atrial fibrillation 28490559 rate well controlled . she will f/u with cardio as planned. Spinal guerrero nosis in cervical region 06215201 concerning that she has a positive babinski [...] before next visit in 2 wks. Snoring 28972250 Thyroid nodule 027276550 Insomnia 504973386 see a elena discussion about gabapentin [id number] Main Office [address] [facility] [address] [place] [address] 12/13/2014 14:13:19 12/13/2014 14:49:18 Atrial fibrillation 12355155 on meds below and doing well continue followup with cardiology Degenerati on of cervical intervertebral disc 35884947 trial of tramadol Thyroid nodule 795293476 pt will get thyroid nodule looked at, most likely will get biopsy Edema [id number] Omayra rush Main Office [address] [facility] [address] [place] [address] 12/29/2014 09:06:58 12/29/2014 10:00:23 Adult health examination 525051940 utd on screening Degenerati on of cervical intervertebral disc 96119875 pt is on tramadol and it helps, still having pain, pt is waiting for PT apt, will have my staff call and check on it Atrial fibrillation 09193505 on meds below and doing well continue followup with cardiology , only on FS asa and cartia, continue Thyroid nodule 252734159 needle biopsy later this month, will hold asa for 5 days prior and then will ask thyroid surgeon when she can restart, keep on all other rmeds Edema [id number] Juan Diego Cali MD Main Office [address] [facility] [address] [place] [address] 08/03/2015 11:18:40 08/03/2015 11:44:57 Cough 32063499 R05 Symptomati c treatment- lots of fluids, rest, tea with honey, OTC cough drops/ cough med as needed, humidifier as needed. Tylenol or ibuprofen for fever/ pain. Return for worsening/ concerns. [id number] Omayra rush Main Office [address] [facility] [address] [place] [address] 12/19/2015 09:57:59 12/19/2015 11:39:30 Palpitations 59420737 R00.2 Rapid atri al fibrillation 274116663 I48.91 Pt. is referred by ambulance to [facility] ER for management of rapid arrhythmia . PT. was maintained on O2 by nasal canula on 2L until paramedics arrived. Pt. will be seen in hospital f/u after the discharge and sleep study will be arranged for her. Note faxed to ER. [id number] Claire Quinonez Main Office [address] [facility] [address] [place] [address] 12/21/2015 10:51:33 12/21/2015 11:58:58 Paroxysmal atrial fibrillation 880767040 I48.0 Recommend to avoid alcohol. Check TSH and CBC. Schedule echocardio gram and sleep study. Consider cardiac referral. Panic disorder 925257767 F41.0 Pt. is on Tramadol for neck pain which will interact with SSRIs. Will recommend to restart counseling RIVER and use Lorazepam PRN for panic attacks. PT. will address this at f/u with PCP. Snoring 75017684 R06.83 Sleep study referral is made to do [facility]. [id number] Hollie Aguayo Main Office [address] [facility] [address] [place] [address] 01/02/2016 13:10:18 01/02/2016 14:49:25 Paroxysmal atrial fibrillation 426046918 I48.0 2 documented episodes total, one in 12/09 and one a year ago. THe one in in 12/09 was after heavy drinking the night before, pt with a small PFO on Echo, will start a baby aspirin and see dR Brandt tomorrw Edema 702358496 R60.9 continue hctz Joint pain 41184453 M25. 50 pt with diffuse joint pain, she finds she is so much more comfortabl e on tramadol 100mg bid Patent foramen ovale 204 556671 Q21.1 seen on echo, started pt on a baby aspirin today Anxiety 17553054 F41.9 will work on this and her eating issues, she feels she is addicted to food. meetin with Gretta today [id number] Omayra CurielMarisela adri Main Office [address] [facility] [address] [place] [address] 01/20/2016 14:12:02 01/20/2016 15:11:46 Adult health examination 086356159 Z00.00 utd on screening Screening for malignant neoplasm of breast 452014812 Z12.39 pt will arrange Patent foramen ovale 204 228406 Q21.1 seen on echo, started pt on a baby aspirin and cardiology has reviewed with her Paroxysmal atrial fibrillation 833268704 I48.0 2 documented episodes total, one in [...] a shorter monitor she could do Edema 605363779 R60.9 continue hctz [id number] Omayra CurielMarisela adri Main Office [address] [facility] [address] [place] [address] 06/06/2016 13:54:52 06/06/2016 14:26:07 Atrial fibrillation 36121691 I48.91 regular rhythmn today, on baby aspirin, no recent episodes. one was associated with alcohol in the past Acute pharyngitis 439636 003 J02.9 neg quick strep, seems viral Cough 94091063 R05 use cough med no abx needed [id number] Lan Oliver MD Main Office [address] [facility] [address] [place] [address] 06/09/2016 10:25:58 06/09/2016 11:21:14 Cough variant asthma 042890836 J45.991 She was instructed to call next week if her symptoms persist. This may be a URI which has set off asthma. [id number] Omayra CurielMarisela adri Main Office [address] [facility] [address] [place] [address] 06/11/2016 10:46:37 06/11/2016 11:26:31 Asthmatic bronchitis 769401592 J45.909 R/o pneumonia. Chest XRAy to be done. Continue Prednisone . Taper down to 40 mg for 2 days, 30 for 2 days, 20 for 2, 10 for 2. UP draft with Albuterol given in the office. Continue cough meds , rest and fluids. [id number] Omayra rush Main Office [address] [facility] [address] [place] [address] 06/29/2016 15:09:06 06/29/2016 15:58:04 Acute bacterial bronchitis 681965942 J20.9 Improving though she does still have a cough, will repeat CBC to check WBC. Continue inhaler/ cough med as needed. Elevated blood-pressure reading without diagnosis of hypertension 704564682 R03.0 High BP today, patient notes her BP has been higher lately, will have her f/u in 2 weeks for recheck of BP and she will have BMP done. [id number] Omayra rush Main Office [address] [place] [address] 07/30/2016 13:44:57 07/30/2016 14:59:36 Benign essential hypertension 9972366 I10 [id number] Omayra rush Main Office [address] [place] [address] 10/26/2016 14:44:08 10/26/2016 15:35:24 Acute pharyngitis 907395473 J02.9 Sat water gargles and take OTC pain meds. Elevated blood-pressure reading without diagnosis of hypertension 308589165 R03.0 BP remains borderline . Pt. is on HCTZ 25 mg and is recommende d to continue. Repeat BMP. F/u with PCP in 3-4 m. Keep low sodium and low caffeine diet. [id number] Juan Diego Cali MD Main Office [address] [facility] [address] [place] [address] 10/27/2016 10:46:26 10/27/2016 11:22:38 Acute pharyngitis 931804823 J02.9 Given active abx therapy which should [...] swallow oral secretions . Exudative pharyngitis 12 2072295 J02.9 [id number] Willy avina Main Office [address] [facility] [address] [place] [address] 10/30/2016 08:51:17 10/30/2016 09:54:13 Acute pharyngitis 255461788 J02.9 strep neg, but persists despites 10 days of amox - ? monet-tonsi lar abscess - see below Dental abscess 003902174 K04.7 s/p amox x 10 days - next f/u 3.28 for tooth extraction Peritonsillar abscess 15 016001 J36 ? caused by dental abscess? Low back pain 845061731 M54.5 Impacted cerumen 9733644 6 H61.21 mild - mod R ear [id number] Omayra rush Main Office [address] [facility] [address] [place] [address] 11/26/2016 08:54:30 11/26/2016 09:29:41 Amenorrhea 54873993 N91.2 neg test Gastroesop hageal reflux disease 638444653 K21.9 untx, quite symptomati c, that is what nausea is form, tx and check h pylori Nausea 298107312 R11.0 due to GERD return 6 weeks, check any discomfort after eating is resolved, if not refer to GI Body mass index 40+ - severely obese 395336790 Z68.41 Obesity 785875299 E66.9 [id number] Omayra Pato rush Main Office [address] [facility] [address] [place] [address] 01/25/2017 14:31:24 01/25/2017 15:18:18 Adult health examination 210966640 Z00.00 utd on screening except mammogram, pt iwll arrange, needs to work on diet and exercise Screening for malignant neoplasm of breast 668092501 Z12.39 pt will arrange Urinary incontinence 165 387768 R32 on meds Morbid obesity 105346643 E66.01 Obesity 420996004 E66.9 Paroxysmal atrial fibrillation 957320206 I48.0 2 documented episodes total, one in [...] trigger for afib Pain in right knee 68415 09763 46515 M25.561 Sleep apnea 70285602 G47 .30 pt tested positive but has not gotten CPAP yet, needs to make a visit [id number] Omayra rush Main Office [address] [facility] [address] [place] [address] 10/10/2017 15:31:26 10/10/2017 16:02:27 Wheezing 45284402 R06.2 Cough 03992730 R05 Symptomati c treatment- lots of fluids, rest, tea with honey, OTC cough drops/ cough med as needed, humidifier as needed. Tylenol or ibuprofen for fever/ pain. Return for worsening/ concerns. Delsym OTC. Acute bronchitis 3777337 2 J20.9 Pain in right knee 01097 91468 94100 M25.561 had been on tramadol then lost her insurance, requests refill. will fill x 1 month and she will need f/u with PCP to get re-establi shed with med. [id number] Omayra rush Main Office [address] [facility] [address] [place] [address] 10/28/2017 15:53:21 10/28/2017 17:35:33 Cough 70191806 R05 check cxr to r/o pna -- ? d/t pnd Pain of right wrist 3169 083499 30677 M25.531 ? CTS - neg tinels/pha lens/finkl estein -- will get OT eval and rec use wrist splint hs Allergic rhinitis 399963 04 J30.9 Asthma 163577973 J45.20 [id number] Omayra rush Main Office [address] [place] [address] 11/18/2017 13:44:44 11/18/2017 15:46:12 Cough 07982563 R05 neg cxr, less but persists - pt concerned - see below Dyspnea 994232791 R06.00 nl ekg and spirometry - offered re-assuran ce Asthma 614320721 J45.20 will check spirometry - see above - yue nl, but pt used to take advair yrs ago and states she feels like her lungs are still inflamed/h ave a lot of mucous - will give trial of ICS to see if help Paroxysmal atrial fibrillation 726133613 I48.0 no problems c this in a long time - see above Obstructiv e sleep apnea syndrome 50115563 G47.33 no get cpap machine - encouraged pt to f/u c sleep med Seasonal a llergic rhinitis 134661457 J30.2 cont singulair as dir [id number] Omayra rush Main Office [address] [facility] [address] [place] [address] 01/27/2018 10:50:09 01/27/2018 11:48:58 Adult health examination 999565410 Z00.00 , needs to work on diet and exercise, eats a lot of bread and pasta, pt needs ot get temptation s out of the house, 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 [id number] Omayra rush Main Office [address] [facility] [address] [place] [address] 03/27/2018 11:24:04 03/27/2018 12:19:20 Lateral epicondylitis 252028421 M77.11 will give 2 options of TE support - she will decide which is covered better / fits better, as well as rec wrist support at hs d/t her sleeping position (R hand bent under head - full wrist flexion), and get pssp eval [id number] Juan Diego Cali MD Main Office [address] [facility] [address] [place] [address] 06/11/2018 09:23:10 06/11/2018 10:12:36 Body mass index 40+ - severely obese 536434858 Z68.42 urged pt to see nutritioni st in [place], and if no sig improvemen t then [...] counseling and/or coordinati on of care. Fatigue 69305351 R53.83 Anxiety 47172298 F41.9 see above re: therapist Morbid obesity 074967257 E66.01 [id number] Omayra rush Main Office [address] [facility] [address] [place] [address] 07/30/2018 10:40:47 07/30/2018 11:37:06 Acute asthma 682131236 J45.901 not on any control meds, will start inhaled steroid, pre proair and singulair and return in 3 months will get spirometry then [id number] Ana Maria Gallego Main Office [address] [facility] [address] [place] [address] 01/12/2019 09:27:00 01/12/2019 10:40:07 Indigestion 056043494 K30 regular diet, avoid offending foods. Trial of PPI and check for recurrence of hpylori. Has followup with Dr Veena Mccarthy in a month Pain in left knee 679951 2782 84408 M25.562 PT, discuss at followup, will try physical therapy, pt has multiple joint pains for years Diarrhea 95776194 R19.7 ? IBS, try daily fiber and probiotic, followup in a month, if not better consider GI eval. Pt can try dairy eliminatio n for a week, does not have symptoms of gluten intoleranc e. [id number] Omayra rush Main Office [address] [facility] [address] [place] [address] 02/02/2019 15:28:28 02/02/2019 16:19:18 Adult health examination 752142566 Z00.00 eating better, wants to lose weight, is due for mammogram Screening for malignant neoplasm of breast 496396805 Z12.39 we will arrange due to lack of followthfo ugh Patent foramen ovale 204 666057 Q21.1 seen on echo, started pt on a baby aspirin and cardiology has reviewed with her Paroxysmal atrial fibrillation 876390185 I48.0 2 documented episodes total, one in [...] during the week. Lymphedema of lower extremity 622854777 I89.0 better on meds, continue hctz Obstructiv e sleep apnea syndrome 60874711 G47.33 pt ot see sleep medicine again, should retry cpap Body mass index 40+ - severely obese 650994015 E66.01 Z68.42 pt to lower carbs, hard for her to keep on the healthy eating track. [id number] Cabrera Mondragon PA-C Main Office [address] [facility] [address] [place] [address] 04/07/2019 13:19:55 04/07/2019 14:23:48 Pain in left knee 2502050803 69170 M25.562 ? PFS vs other - will [...] on of care. Gastroesop hageal reflux disease 428421738 K21.9 [id number] Omayra rush Main Office [address] [facility] [address] [place] [address] 12/31/2019 13:03:19 12/31/2019 14:22:13 Asthma 655200274 J45.909 pt will restart med Urge incon tinence of urine 02110730 N39.41 urology had patient on oxybutynin . will restart Lymphedema of lower extremity 747590441 I89.0 better on meds, will try chlorthali done [id number] Bela Mondragon PA-C [facility] [address] [place] [address] 01/08/2020 15:07:08 01/11/2020 08:39:09 Indigestion 653791180 K30 most likely in response to starting sertraline . Pt tried taking Tums but had no relief. WE will try PPI over the week end and if still having indigestio n discomfort , call after the weekend and be seen in the office to check her EKG. Generalize d anxiety disorder 42930008 F41.1 contineu SSRI as prescribed by psych. MIght be experienci ng symptoms of indigestio n due to SSRI as well. Lymphedema of lower extremity 144816775 I89.0 continue diuretic, but pt. was advised to have labs done not later than after the week end. [id number] Lan Oliver MD [facility] [address] [place] [address] 04/01/2020 07:58:50 04/01/2020 15:09:46 Abdominal pain 17169676 R10.9 She will try simethicon e. There was nothing on her history that warranted immediate attention and she was advised to call the office in the am if it persisted. [id number] Ana Maria Gallego [facility] h [address] [address] [place] [address] 04/22/2020 06:41:45 04/24/2020 10:57:02 [id number] Ana Maria Gallego Main Office [address] [address] [place] [address] 05/30/2020 15:06:28 05/30/2020 16:57:55 Adult health examination 488820815 Z00.00 Pt has concerns about her weight and is under stress with family and work. Social and family history reviewed. Immunizati ons reviewed, advised annual flu shot, will get at [facility] as we do not have any in stock at this time. . 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 declines medication at this time. NO SI or HI, Addiction 91904516 R46.8 1 Pt feels she has a food addiction, recommende d to go to OA or call to see if any virtual meetings. Most of the appt spent talking about food, eating and stress/anx iety related to this. She will reach out to the counselor, suggested some ideas for this. Elevated blood-pressure reading without diagnosis of hypertension 889484322 R03.0 Pt under stress today, tearful, recheck at next ov Mild inter mittent asthma 306166553 J45.20 stable at this time, uses montelukas t Morbid obesity 578664420 E66.01 Pt will look into OA program. Suggested lowering carbs, more protein, no meal skipping and tips to avoid night eating. Advised to try and me more active. Short term followup [id number] Giorgio Machado MD Main Office [address] [facility] [address] [place] [address] 12/28/2020 10:59:55 12/28/2020 14:58:13 Cervical radiculopathy 44858451 M54.12 Will do a trail of NSAID [...] compress.N willow exercises provided. Urinary incontinence 165 978874 R32 She was on oxybutynin 20 ER, she has a hx of small bowel obstructio n she requested a refill at that dose, given hx of small bowel obstructio n I think it might not be a bad idea for patient to discuss with urology if other options can be explored and she agreed to this. Medial epicondylitis 532 37907 M77.01 Will do trial of NSAID, Patient aware risk of GI bleed as she is also on elaquis. She was told to take with meal. If any signs of bleeding she was asked to stop and let us know. [id number] Ana Maria Gallego Main Office [address] [facility] [address] [place] [address] 01/09/2021 15:56:27 01/10/2021 09:57:35 Paroxysmal atrial fibrillation 984104226 I48.0 pt is followed by cardiology , remains on eliquis, flecanide and metoprolol for now. Seems to be in NSR today, no sx. Advised to consider sleep studay repeat and work on wt loss. 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 Discusse OA program Generalize d anxiety disorder 71197680 F41.1 pt agrees to continue with her counselor to discuss issues especially her wt and eating compulsion . declines medication at this time. NO SI or HI, [id number] Ana Maria Gallego Main Office [address] [facility] [address] [place] [address] 01/25/2021 14:49:47 01/25/2021 16:14:43 Cervical radiculitis 05374473 M54.12 trial of short pred taper to decrease inflammati on with radiculopa thy. Side effects reviewed. Cervical radiculopathy 32904812 M54.12 stay on gabapentin , can use bid if not too drowsy, or can use 2 at bedtime Acute thor acic back pain 524080113 M54.6 check xay, do stretches, advised PT, pt will consider Body mass index 40+ - severely obese 284347772 E66.01 Z68.41 pt would like to see woven blind loom tender, will do a referral [id number] Omayra Angelest h [address] [facility] [address] [place] [address] 02/13/2021 08:33:32 02/13/2021 14:20:43 Tendinitis of right elbow 4254664625 2604109 M67.823 continued right elbow pain, sounds like tendonitis , ice and set up appt at [facility] for cortisone injection Pain of le ft shoulder blade 344813465 M25.512 pt with muscular pain around left scapula into neck and shoulder, most likely related to muscular pain form poor posture, left sided pectoralis insertion pain on and off, does not feel like pts cardiac pain and it is positional , no need for cardiac eval. pt to set up PT, use a roller on upper back Pain of le ft shoulder joint 3707593940 4418096 M25.512 related to muscular pain from neck and back [id number] Ana Maria Julián Main Office [address] [place] [address] 06/23/2021 13:56:44 06/23/2021 15:13:56 Adult health examination 733427073 Z00.00 Pt has concerns about her weight and is under stress with family and work but stable at this time. Social and family history reviewed. Immunizati ons reviewed, advised annual flu shot,, will be due for Tdap next year . 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 declines medication at this time. NO SI or HI, Spent time disussing family issues around teen age daughter Paroxysmal atrial fibrillation 635192578 I48.0 pt is followed by cardiology , remains on eliquis, flecanide and metoprolol for now. Seems to be in NSR today, no sx. Advised to consider sleep study repeat and work on wt loss. Pt wiil consider sleep evaluation Mild inter mittent asthma 379723057 J45.20 stable at this time, has proair prn Morbid obesity 237655106 E66.01 Pt will look into woven blind loom tender. Suggested lowering carbs, more protein, no meal skipping and tips to avoid night eating. Advised to try and me more active. Screening for malignant neoplasm of breast 259903706 Z12.39 [id number] Omayra rush Main Office [address] [place] [address] 12/13/2021 07:41:49 12/13/2021 11:53:08 [id number] Omayra CurielMarisela rush [facility] [address] [facility] [address] [place] [address] 04/08/2022 15:01:10 04/09/2022 10:56:34 Pain in right arm 463586576 M79.601 had to call into a different pharmacy, first one closed will treat for 2 days since weekend then needs in person appt, could be radicular pain, unable to tell without exam [id number] Mary Becerra MA Main Office [address] [facility] [address] [place] [address] 04/18/2022 14:48:18 04/18/2022 16:00:22 Cervical radiculitis 44106968 M54.12 will get pmr eval, and give trial of gbn -- could consider tyl 500mg 1-2 tabs up to 3x/day as well Paroxysmal atrial fibrillation 680562231 I48.0 encouraged pt to resume eliquis as per card - if too $$, then consider coumadin [id number] Hollie Aguayo Main Office [address] [facility] [address] [place] [address] 06/20/2022 13:57:16 06/20/2022 15:17:51 Adult health examination 576915519 Z00.00 Pt has concerns about her weight and is under stress with family and work but stable at this time. Social and family history reviewed. Immunizati ons reviewed, advised annual flu shot, due for Tdap, covid booster. She will do appt at the pharmacy. 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 declines medication at this time. NO SI or HI, Spent time discussing family issues Paroxysmal atrial fibrillation 999451097 I48.0 pt is followed by cardiology , remains on eliquis, flecanide and metoprolol for now. Seems to be in NSR today, no sx. Advised to consider sleep study repeat and work on wt loss. Pt will consider sleep evaluation Mild inter mittent asthma 615228719 J45.20 stable at this time, has proair prn Morbid obesity 012386556 E66.01 Pt will look into woven blind loom tender. Suggested lowering carbs, more protein, no meal skipping and tips to avoid night eating. Advised to try and me more active. Screening for malignant neoplasm of breast 577973567 Z12.39 Body mass index 40+ - severely obese 512720299 Z68.43 pt would like to see woven blind loom tender, will do a referral [id number] Cabrera Mondragon PA-C Main Office [address] [facility] [address] [place] [address] 09/26/2022 15:38:56 09/26/2022 16:43:10 Mild intermittent asthma 615068531 J45.20 rec cont montelukas t as dir, advised pt on how to use flovent x few wks - when feeling better can stop, but cont alb 5-30min ac exercise in future Paroxysmal atrial fibrillation 412517192 I48.0 cont meds, f/u c card as dir Obstructiv e sleep apnea syndrome 25075635 G47.33 seen by sleep med earlier today, will get updated sleep study Dyspnea 457545577 R06.00 negative cardiac w/u - ? d/t asthmatic bronchitis / post viral syndrome vs deconditio ashlee / obesity -- check probnp Impaired f asting glycemia 609625985 R73.01 Fatigue 17835909 R53.83 Pain of le ft hip joint 8164316705 41186 M25.552 check xray - pain x several months - r/o djd - if sig, then get ortho eval [id number] Cabrera Mondragon PA-C [facility] [address] [facility] [address] [place] [address] 12/04/2022 08:29:26 12/04/2022 10:25:23 Cough 24494044 R05.9 rec celine or mucinex, suspect pnd == sinusitis - see below Acute sinusitis 50744959 J01.90 rec cont ns spray prn, consider warm washcloth to side of neck recommend probiotics while on abx Acute conjunctivitis 044 23066 H10.33 she left her contacts in for ~ 48 hours - suspect corneal ulceration - strongly encouraged pt to see her eye md, meanwhile will rx c abx eye ointment [id number] Cabrera Mondragon PA-C [facility] [address] [facility] [address] [place] [address] 01/08/2023 15:46:57 01/08/2023 16:25:29 Urinary tract infectious disease 65506826 N39.0 pt declines giving urine sample, so will rx empiricall y c cipro cont push fluids, consider cranberry juice, also consider prn pyridium recommend probiotics while on abx Seasonal a llergic rhinitis 538990621 J30.2 rec resume singulair as dir, or consider claritin, cont prn ns spray to help lessen pndrtc next week (needs ov not TH) if cough persists [id number] Cabrera Mondragon PA-C Main Office [address] [facility] [address] [place] [address] 04/17/2023 15:26:53 04/17/2023 16:56:58 Lateral epicondylitis of left humerus 3052382850 41394 M77.12 trial c TE support, cool compress prn, wrist splint o/n -- if no better call us - consider ortho for sandoval injxn Skin lesion 94154514 L98 .9 most likely epidermoid cyst - will get derm eval, ? may need to see general surgeon if they cannot remove Pain in both feet 626067 4586 2528004 M79.671 better lately, no evidence / suspicion of fx [id number] Bela Mondragon PA-C Main Office [address] [facility] [address] [place] [address] 04/19/2023 13:10:00 04/19/2023 13:40:50 Abdominal pain 04076701 R10.9 Acute abdomen, refer to emergency department . PT. refused to go by ambulance. Will drive to [facility]. Call ahead placed to [facility] ER. [id number] Lena Cifuentes LPN Main Office [address] [facility] [address] [place] [address] 04/26/2023 10:09:45 05/10/2023 16:14:02 [id number] Lan Oliver MD Main Office [address] [facility] [address] [place] [address] 07/24/2023 14:43:32 07/24/2023 15:27:47 Cough 64962951 R05.9 -in office RSV, flu, and covid are negative-d iscussed OTC interventi ons to help with a cough Acute sinusitis 98537879 J01.90 -x3 weeks of symptoms of sinus pressure, nasal congestion , cough, post nasal drip, and sore throat-guanakito al decongesta nts provide minimal relief-exp osed to other coworkers with similar symptoms-P E revealed sinus tenderness to the frontal sinus, erythemato us posterior oropharynx and nasal discharge- will start pt on augmentin x10 day course Mild inter mittent asthma [id number] J45.20 per pt request, refill Health Concerns Section Related Observation LastModified by Organization Detai ls LastModified Time None Recorded Concern Status LastModified by Organization Details LastModified Time None Recorded Advance Directives Directive N: Payers Encounter Date Sequence Insurance Name Policy Number Policy Pollard Covered Member ID Pollard Member ID Guarantor Name 01/08/2023 1 [employer] - DIRECT CONNECTORCARE TYPE I (HMO) [id number] Steph Neal [id number] 1 Steph Neal 04/17/2023 1 [employer] - DIRECT CONNE[employer]CARE TYPE I (HMO) [id number] Steph Neal [id number] 1 Steph Neal 04/19/2023 1 [employer] - DIRECT CONNE[employer]CARE TYPE I (HMO) [id number] Steph Artis Ángel [id number] 1 Steph Neal 04/26/2023 1 [employer] - DIRECT CONNECTORCARE TYPE I (HMO) [id number] Steph Artis Ángel [id number] 1 Steph Neal 07/24/2023 1 [employer] - DIRECT CONNECTORCARE TYPE I (HMO) [id number] Steph Artis Ángel [id number] 1 Steph Neal Notes Date Note Type Note Provider Name and Address Organization Details Recorded Time 01/08/2023 text/html Patient has been having urinary Pressure and frequency . Patient has noticed spasms after urinating since Saturday. no f/c, hematuria Cabrera Mondragon PA-C [address] [address], [place], [address], [facility] 01/08/2023 16:19:43 04/17/2023 text/html pt had B foot pa in x few wks, up until recently - now resolvedcurr c/o L elbow painno trauma to feet or LUEdoes sleep c L wrist flexed occ.also c/o lesion on her back - boyfriend is concerned, no pus dc, no f/c Cabrera Mondragon PA-C [address] [facility] [address], [place], [address], [facility] 04/20/2023 13:37:29 04/19/2023 text/html 47 year old fema le c/o acute R. mid to lower abdominal pain started yesterday morning and gradually worsened in severity. Non radiating, no nausea. NO fever, chills. NO prior h/o similar pain, renal calculi. Urine with hemolyzed trace of blood and ketones. Bela Mondragon PA-C [address] [facility] [address], [place], [address], [facility] 04/19/2023 14:39:26 04/26/2023 text/html Hospitalization Contact RecordReported bypatient.Follow UpHospital: [facility]; admit date: (Please enter in format 'MM/DD/YYYY') (04/19/2023); date of discharge: (Please enter in format 'MM/DD/YYYY') (04/23/2023); date of contact: (Please enter in format 'MM/DD/YYYY') (04/26/2023)Notes:[facility] covered inpatient stay? noTOC with in 48 working hours? yes HCP on file? yesMOLST on file? noDischarge Summary available? yes Pt presented to [facility] on 04/19/23 due to 2.5 days [...] hrs prn pain (30 tabs). ANJU Sewell, [facility] 05/10/2023 16:14:01 07/24/2023 text/html Sinusitis/Allerg yRepor power bypatient.Location:[facility]; [facility] Associated Symptoms:no fever; no nausea or [...] sob, or chest pain. 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 Requests RSV + flu testing. Home covid test is negative. Lan Oliver MD [address] [address], [place], [address], [facility] 07/30/2023 09:10:02 OBGyn Episode No OBEpisode recorded.
== END 2024-11-24 16:13 | disposition home or self-care (01) ==
LOC: HO.HOS 15:24
PROVIDERS: Visit Provider Physician Assistant
DX: M23.306 Other meniscus derangements, unspecified meniscus, right knee (principal)
CPT/HCPCS: 99024

== ENCOUNTER → 2024-11-24 15:23 | Outpatient (BNVA) | payer OTHER, SELFPAY | PROVIDERS: Visit Provider Physician Assistant | DX: Z47.89 Encounter for other orthopedic aftercare (principal); M23.306 Other meniscus derangements, unspecified meniscus, right knee; Z98.890 Other specified postprocedural states | CPT/HCPCS: 99212 ==

== ENCOUNTER 2024-11-25 14:24 | Outpatient (AMB) | payer OTHER, SELFPAY ==
--- NOTE | 2024-11-25 14:29 | A.OFFPC_ITS ---
Vital Signs 11/25/24 14:32 Height 5 ft 8 in Weight 330 lb BMI 50.2 BP 120/88 Blood Pressure Location Lt brachial Position Sitting Pulse 69 Pulse Source Pulse Oximeter Temp 97.5 F Temp Source Temporal Artery Scan Pulse Oximetry (%) 93 Oxygen Delivery Method Room Air Intake Visit Reasons: pain on parts of body Intake Note: Patient is here to follow up on Pain on parts of body. Drag Out Man Required: No Concrete Pump Operator: Not Required per policy Accompanied by: Self / Same As Patient Allergies No Known Allergies [No Known Allergies*] Allergy (Verified 11/25/24 14:36) Medication List - Last Reconciled 11/25/24 by Caitlin Sousa PA-C acetaminophen (Tylenol) 650 mg (2 x 325 mg) PO Q4H PRN albuterol-budesonide 90-80 mcg/actuation 2 inhalations inhalation DAILY PRN apixaban (Eliquis) 5 mg PO BID benzonatate 100 mg PO BID PRN flecainide 50 mg PO BID furosemide (Lasix) 20 mg PO DAILY PRN levonorgestrel (Mirena) intrauterine metoprolol succinate ER 25 mg PO DAILY oxycodone-acetaminophen 5-325 mg 1 tab PO Q8H PRN 7 days semaglutide (weight loss) (Wegovy) 2.4 mg (0.75 mL) subcut QWEEK Tobacco use date assessed: 11/25/24 Dental Screening Dental Screen Date: 11/25/24 Did you have a dental visit in the last 12 months?: No Did you have a dental problem in the last 6 months where you did not have access to dental care?: No Was dental information given to patient?: No HPI pain on parts of body HPI Details 49-year-old female with past medical his tory of atrial fibrillation, asthma, morbid obesity, obstructive sleep apnea, depression last seen 07/2024 coming in for follow up. In review of the notes, patient has been following with [facility] orthopedics last seen 11/24/2024 s/p R knee arthroscopy 11/18/2024 doing well post op advised to resume activities as tolerated and follow up for management of Ash's cyst. Patient was seen by cardiology 10/2024 for Afib doing well continue to follow with routine exams. Presenting with concerns related to the management of generalized body pain and insurance authorization issues for medications. The patient had initially experienced pain in the top of the foot, potentially linked to osteoarthritis, a Ash's cyst, or knee complications, but this has since resolved. She had earlier success with Wegovy for weight reduction, recently challenged by insurance denial post-surgery, contributing to significant stress and weight regain due to reduced permissible physical activity. The patient discusses bilateral shoulder pain L>R. [facility] Medical History (Updated 11/25/24 @ 15:05 by Caitlin Sousa PA-C) Sleep apnea, obstructive Asthma Atrial fibrillation Surgical History (Updated 11/25/24 @ 14:37 by NEVA Garcia) History of knee surgery History of appendectomy Family History Other Adopted Social History Household Members: Family Housing: Apartment Do you presently have visiting nurse or other home services: No Alcohol intake: current Alcohol intake frequency: holidays/special occasions only Comment: Socially Patient Tobacco Use Status: Former Tobacco user Cigarette Packs Per Day: 0.5 Years Smoked: 15 +/- e-Cigarette/Vaping Use: Never Used Second Hand Smoke Exposure: Yes service: No Current occupational status: employed 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 1. Little interest or pleasure in doing things: not at all 2. Feeling down, depressed, or hopeless: not at all 3. Trouble falling or staying asleep, or sleeping too much: not at all 4. Feeling tired or having little energy: not at all 5. Poor appetite or overeating: not at all 6. Feeling bad about yourself - or that you are a failure or have let yourself or your family down: not at all 7. Trouble concentrating on things, such as reading the newspaper or watching television: not at all 8. Moving or speaking so slowly that other people could have noticed. Or the opposite - being so fidgety or restless that you have been moving around a lot more than usual: not at all 9. Thoughts that you would be better off or of hurting yourself in some way: not at all Total score: 0 Depression Screening Interpretation: Negative Depression Screening Done: Yes Source: Developed by Drs. Ángel Faria, Estrella Jason, Carlos Manuel Henderson and colleagues, with an educational gabby from [facility]. Thrive Questionnaire Date Thrive assessed: 11/25/24 AUDIT C Alcohol Use Questionnaire (AUDIT-C) 1. How often do you have a drink containing alcohol?: Monthly or less 2. How many drinks containing alcohol do you have on a typical day when you are drinking?: 1 or 2 Total Score: 1 ILDA-7 AMB Questionnaire ILDA-7 Date ILDA - 7 assessed: 11/25/24 Feeling nervous, anxious, or on edge: 0 = Not at all Not being able to stop or control worryin = Not at all Worrying too much about different things: 0 = Not at all Trouble relaxin = Not at all Being so restless that it is hard to sit still: 0 = Not at all Becoming easily annoyed or irritable: 0 = Not at all Feeling afraid as if something awful might happen: 0 = Not at all Total ILDA-7 score (0-4 normal; 5-9 mild; 10-14 moderate; 15-21 severe): 0 Source: Developed by Drs. Ángel Faria, Estrella Jason, Carlos Manuel Henderson and colleagues, with an educational gabby from [facility]. Review of Systems Const Denies body aches, Denies chills, Denies fever(s), Denies headache(s) and Denies poor appetite Eyes Reports no additional complaints ENT Denies dysphagia, Denies dizziness, Denies headache(s) and Denies odynophagia Card Denies chest pain, Denies syncope, Denies edema, Denies irregular heart rhythm, Denies lightheadedness and Denies dyspnea Resp Denies cough and Denies dyspnea GI Denies abdominal pain, Denies constipation, Denies dysphagia, Denies diarrhea, Denies nausea, Denies odynophagia and Denies vomiting Reports no additional complaints Musc Reports no additional complaints and Denies abnormal gait Skin/Breast Reports system reviewed and no additional complaints, except as documented Neuro Denies abnormal gait, Denies dizziness, Denies syncope and Denies headache(s) Psych Reports no additional complaints Physical exam (Primary Care) Tobacco/Smoking Status: Tobacco use Status Tobacco use date assessed 08/11/24 08/11/24 15:39 Patient Tobacco Use Status Former Tobacco user 11/18/24 07:53 e-Cigarette/Vaping Use Never Used 08/11/24 15:39 Depression Screening Interpretation: Negative Thrive Assessment: Date of Thrive Assessment Date Thrive assessed 11/25/24 11/25/24 14:24 Const General: cooperative, healthy appearing, comfortable and no acute distress Orientation/consciousness: patient oriented x3 HENMT Head: Yes normocephalic Ears: hearing grossly normal bilaterally General nose exam: Normal external nose present Eyes General: appearance normal, both eyes and all related structures Conjunctivae: conjunctivae normal Neck Neck: Yes full ROM and Yes no lymphadenopathy Resp Effort & Inspection: normal respiratory effort Auscultation: clear to auscultation bilaterally, no crackles, no rales, no rhonchi and no wheezes Cardio Rate: regular rate Rhythm: regular rhythm Skin General skin exam: no rashes or lesions noted Neuro General: patient oriented x3 Gait exam (Neuro): Normal gait present Extrem Other: pain to palpation over the top of the left shoulder and pain with internal rotation manas. No pain to palpation of right shoulder General: Yes normal to inspection, Yes full ROM and No edema Psych Affect: normal affect Attitude: cooperative Insight: Good insight present (Psych) Judgement: Good judgement present (Psych) Coding Level of Care Code Est Pt Level 3 (46332) Diagnoses Degenerative tear of meniscus of right knee M23.306 Morbid obesity E66.01 Atrial fibrillation I48.0 Atrial fibrillation type: paroxysmal Bilateral shoulder pain M25.511; M25.512 Assessment & Plan Assessment & Plan (1) Degenerative tear of meniscus of right knee: Code(s): M23.306 - Other meniscus derangements, unspecified meniscus, right knee Category: Medical Plan: Recently underwent meniscus repair with orthopedics and has seen improvement in right knee pain and swelling as well as right foot pain. (2) Morbid obesity: Code(s): E66.01 - Morbid (severe) obesity due to excess calories Category: Medical Plan: The management plan involves appealing the denial for Wegovy and examining alternative pathways through cardiology that could support her case. Insurance coordination is emphasized to bolster authorization for necessary medications and ensure effective weight management post-surgery. She has seen weight management in the past without good benefit. Healthy diet and regular exercise i s encouraged. (3) Atrial fibrillation: Comment: Code(s): I48.91 - Unspecified atrial fibrillation Category: Medical Qualifiers: Atrial fibrillation type: paroxysmal Qualified Code(s): I48.0 - Paroxysmal atrial fibrillation Plan: Continue to follow with cardiology and continue on current medication regimen. (4) Bilateral shoulder pain: Code(s): M25.511 - Pain in right shoulder; M25.512 - Pain in left shoulder Category: Medical Plan: patient c/o bilateral shoulder pain L>R. At this time she would like to defer PT evaluation or XRay and will reach out if symptoms worsen or continue. Advised patient to use heating pads and tylenol prn for pain. Plan This note was constructed using voice recognition software. While every effort has been made to ensure accuracy and cullet trucker, still areas may have been included sometimes these areas may affect the content or meeting of the given symptoms. Total time spent caring for the patient today was 20 minutes. This includes time spent before the visit reviewing the chart, time spent during the visit, and time spent after the visit and documentation. Patient was informed and verbally consented to the use of an ambient scribe for clinic note documentation during this visit.
[2024-11-25 14:32] VITALS: BP 120/88; PULSE 69; TEMP 36.4; O2SAT 93; BMI 50.2
== END 2024-11-25 15:09 | disposition home or self-care (01) ==
LOC: HO.HMCH 14:25
DX: M23.306 Other meniscus derangements, unspecified meniscus, right knee (principal); E66.01 Morbid (severe) obesity due to excess calories; I48.0 Paroxysmal atrial fibrillation; Z68.43 Body mass index [BMI] 50.0-59.9, adult; M25.511 Pain in right shoulder; M25.512 Pain in left shoulder

== ENCOUNTER → 2024-11-25 14:24 | Outpatient (BNVA) | payer OTHER, SELFPAY | DX: M23.306 Other meniscus derangements, unspecified meniscus, right knee (principal); E66.01 Morbid (severe) obesity due to excess calories; I48.0 Paroxysmal atrial fibrillation; M25.511 Pain in right shoulder; M25.512 Pain in left shoulder; Z68.43 Body mass index [BMI] 50.0-59.9, adult; Z71.3 Dietary counseling and surveillance | CPT/HCPCS: 99212 ==

== ENCOUNTER 2024-12-31 14:36 | Outpatient (AMB) | payer OTHER, SELFPAY ==
--- NOTE | 2024-12-31 14:39 | A.OFFVIS_ITS ---
Intake Visit Reasons: PO-Rt Knee 11/18/24 NE Intake Note: Steph is a 49 year old female who presents today for a post op appointment s/p right knee partial medial meniscectomy and chondroplasty 11/18/24 NE. She had previous concerns of a bakers cyst Patient reports that she is not doing as well as she had hoped. She is having continued pain. She is doing home exercises. She feels pulling on the lateral aspect of the knee with flexion. She has some occasional pain at the base of the knee. Allergies No Known Allergies [No Known Allergies*] Allergy (Verified 12/31/24 14:41) HPI HPI PO-Rt Knee 11/18/24 NE: Details: Steph comes in today 6 weeks status post right knee arthroscopy. Intraoperatively she had severe patellofemoral arthritis and moderate tibiofemoral. She states she is having more lateral pain than she did prior to surgery but less medial pain. Otherwise she is working to lose weight and regain her fitness. [facility] Medical History (Updated 11/25/24 @ 15:05 by Caitlin Sousa PA-C) Sleep apnea, obstructive Asthma Atrial fibrillation Surgical History (Updated 11/25/24 @ 14:37 by NEVA Garcia) History of knee surgery History of appendectomy Family History Other Adopted Social History Household Members: Family Housing: Apartment Do you presently have visiting nurse or other home services: No Alcohol intake: current Alcohol intake frequency: holidays/special occasions only Comment: Socially Patient Tobacco Use Status: Former Tobacco user Cigarette Packs Per Day: 0.5 Years Smoked: 15 +/- e-Cigarette/Vaping Use: Never Used Second Hand Smoke Exposure: Yes service: No Current occupational status: employed 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 Full range of motion no effusion. Posterolateral dull tenderness to palpation. Otherwise unremarkable exam. Assessment & Plan Assessment & Plan (1) Osteoarthritis of right knee: Code(s): M17.11 - Unilateral primary osteoarthritis, right knee Category: Medical Plan: Ongoing pain from arthritis that is tolerable and slowly improving. Continue activity as tolerated increasing her motion as tolerated. (2) Degenerative tear of meniscus of right knee: Code(s): M23.306 - Other meniscus derangements, unspecified meniscus, right knee Category: Medical Plan: Degenerative meniscus tear right knee. Treated arthroscopically. Her symptoms are improving. Continue gentle activity as tolerated. Coding Level of Care Code Global (61201) Diagnoses Osteoarthritis of right knee M17.11 Degenerative tear of meniscus of right knee M23.306
--- OUTSIDE RECORDS SUMMARY | 2024-12-31 15:20 | XMS_ITS | Data Portability ---
Author Organization [facility], Main Office Address [address] [place] [address] Care Team Providers Care Service Desk Lead Name Role Phone MINNIE CHRIS Liner Man [facility] Railway Signalling Engineer HODA RAHMAN Orthopedic Surgeon [phone] [facility] UR[facility] Urologist [phone] JESS DELA CRUZ Electronics Instructor MOLLY LAM Primary Care Provider Assessment Encounter Date Assessment Date Assessment LastModified by Organization Details LastModified Time 01/08/2023 01/08/2023 This service was provided using telemedicine. Patient consented to video & audio visit Patient was located in the [facility]. Provider was located in the office. [...] DO Not Attach Compendium, Do Not Delete/merge, [id number] 3 15:18:01 rapid flu (A+B) 2022 023 CARMELO In-Office Order, Internal Use Only DO Not Attach Compendium DO Not Attach Compendium, Do Not Delete/merge, [id number] 3 15:28:10 rsv (respi ratory syncyt ial virus) , rapidsoniya al 2022 023 CARMELO In-Office Order, Internal Use Only DO Not Attach Compendium DO Not Attach Compendium, Do Not Delete/merge, [id number] 3 15:44:39 urinal ysis, dipsti ck 2022 023 [email or web address] In-Office Order, Internal Use Only DO Not Attach Compendium DO Not Attach Compendium, Do Not Delete/merge, [id number] 3 14:39:10 Referral dermat ologis t referr al 2022 023 [facility], [address], [address], [place], [address], 4 10:36:34 Procedures None record ed. Surgeries None record ed. Imaging None record ed. Medication Orders Crispin tin 875 mg-125 mg tablet 2022 023 VERNALIS [facility] #[id number], [address] [place], [id number], 3 15:18:13 benzon atate 100 mg capsul e 2022 023 VERNALIS [facility] #[id number], [address] [place], [id number], 3 15:18:16 albute rol sulfat e HFA 90 mcg/ac tuatio n aeroso l inhale r 2022 023 VERNALIS [facility] #42928, [address] [place], [id number], 15:18:13 ciprof loxaci n 250 mg tablet 2022 [facility], [address], [place], [place], [phone], 15:55:22 Patient TargetsNo targets recorded. Patient Instructions Encounter Date Encounter Id Patient Instructions Last Modified By Organization Details Last Modified Time 01/08/2023 [id number] Follow up if no improvement or if symptoms worsen. [email or web address] Not available 01/08/2023 16:19:02 04/17/2023 [id number] tennis elbow: care instructions pmadden Not available 04/17/2023 16:48:46 tennis elbow: exercises pmadden Not available 04/17/2023 16:48:47 Follow up if no improvement or if symptoms worsen. pmadden Not available 04/17/2023 16:53:08 04/26/2023 [id number] 05/07/23- message left at home number to return my call, offer a hospital follow up as well as Pt is also due for a physical. 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 Referring Physician: Cabrera Mondragon, Internal Medicine, Encounter Date: 04/17/2023 Results Created Date Observation Date Name Description Value Unit Range Abnormal Flag Note LastModifiedBy Organization Detail LastModifiedTime 04/19/2004/19/2023 urina lysis , dipst ick Leukocytes Negati ve Not Available In-Office Order Internal Use Only DO Not Attach Compendium DO Not Attach Compendium, Do Not Delete/merge, [id number] 04/19/2023 13:29:11 04/19/2004/19/2023 urina lysis , dipst [...] 04/19/2023 urina lysis , dipst ick Specific [place] 1.005 Not Available In-Off ice Order Internal [...] DO Not Attach Compendium, Do Not Delete/merge, [id number] 04/19/2023 13:29:11 04/19/20 23 04/19/2023 urina lysis , dipst ick Appearance Clear Not Available In-Offi ce Order Internal Use Only DO Not Attach Compendium DO Not Attach Compendium, Do Not Delete/merge, [id number] 04/19/2023 13:29:11 04/19/20 23 04/19/2023 urina lysis , dipst ick Color Yellow Not Available In-Office Order Internal Use Only DO Not Attach Compendium DO Not Attach Compendium, Do Not Delete/merge, [id number] 04/19/2023 13:29:11 07/24/20 23 07/24/2023 rsv (resp irato ry syncy tial virus ), rapid , nasop haryn geal RSV, RAPID negati ve Not Available In-Office Order Internal Use Only DO Not Attach Compendium DO Not Attach Compendium, Do Not Delete/merge, [id number] 07/24/2023 15:19:04 07/24/20 23 07/24/2023 rapid flu (A+B) Flu A negati ve Not Available In-Office Order Internal Use Only DO Not Attach Compendium DO Not Attach Compendium, Do Not Delete/merge, [id number] 07/24/2023 14:52:40 07/24/20 23 07/24/2023 rapid flu (A+B) Flu B negati ve Not Available In-Office Order Internal Use Only DO Not Attach Compendium DO Not Attach Compendium, Do Not Delete/merge, [id number] 07/24/2023 14:52:40 07/24/20 23 07/24/2023 rapid SARS CoV 2 Ag, QL IA, respi rator y speci men RAPID SARS COV 2 negati ve Not Available In-Office Order Internal Use Only DO Not Attach Compendium DO Not Attach Compendium, Do Not Delete/merge, [id number] 07/24/2023 14:52:37 05/21/2005/21/2023 upper endos copy proce dure (EGD) (PROC ) No observ ation record ed. [email or web address] [facility] (Medical Records) [address] [place], [address], 05/21/2023 11:11:15 05/22/20 23 05/21/2023 US, abdom en, compl ete No observ ation record ed. [email or web address] [facility] (Medical Records) [address] [place], [address], 05/22/2023 12:50:47 Result Notes None recorded. Problems Name Problem SNOMED Code Status Onset Date Resolution Date Notes Provider Name and Address Organization Details Recorded Time Inflamma tory disorder of extremit y 585381539 Completed 201103/09/2014 IMPRESSI ON: REVIEWED XRAY WITH ALPHONSE HAMILTON EXAM CONSISTE NT WITH ACHILLES TENDONIT IS, AND SWELLING NO MASS FELT; RECORDED 03/25/20 12 9:59AM BY DUNIA SILVER MA, ANNOTATI ON/SAMINA Mondragon PA-C [address], [place], [address], [facility] 6 12:28:32 Acute bronchit is [id number] Completed 201103/09/2014 RECORDED 03/25/20 12 9:59AM BY DUINA SILVER MA, ANNOTATI ON/ADDEN BAKARI Mondragon PA-C [address], [place], [address], [facility] 6 12:28:31 Acute pharyngi tis 933935126 Completed 201203/09/2014 IMPRESSI ON: + RAPID STREP, POSSIBLE RIGHT EARLY PERITONS ILLAR ABSCESS, TX WITH ABX/FLUI DS/NSAID S, IF WORSENIN G PAIN OR DIFFICUL TY SWALLOWI NG CALL OFFICE FOR ENT APPT.; RECORDED 12/16/19 13 10:04AM BY BARBARA ARTIS ON/ADDEN LUIS FERNANDO Jimenez, [facility] 6 15:19:04 Tobacco user [id number] Completed 201305/29/2014 RECORDED 01/17/20 14 10:42AM BY OMAYRA Saleem MD, OFFICE VISIT Bela Mondragon PA-C [address], [place], [address], [facility] 6 12:28:31 Patient status finding [id number] Completed 06/29/2016 LUIS FERNANDO Adams, [facility] 6 15:18:43 Backache 647884548 Completed 06/29/2016 LUIS FERNANDO Adams, [facility] 6 15:18:46 Urinary incontin ence 165733969 Active Bela Mondragon PA-C [address] [facility] [address], [place], [address], [facility] 6 12:28:32 Cough 21623169 Completed 201103/09/2014 RECORDED 03/25/20 12 9:58AM BY DUNIA SILVER MA, ANNOTATI ON/ADDEN DUM LUIS FERNANDO Adams, [facility] 6 15:19:12 Degenera tion of interver tebral disc 14963638 Completed 201103/09/2014 RECORDED 03/25/20 12 9:59AM BY DUNIA SILVER MA, ANNOTATI ON/ADDEN DUM Bela CHOE-C [address] [facility] [address], [place], [address], [facility] 6 12:28:32 Dizzines s and giddines s 652111109 Completed 201203/09/2014 IMPRESSI ON: NORMAL EXAM; RECORDED 09/01/19 13 1:16PM BY CHERIE HERRERA MA, ANNOTATI ON/ADDEN DUM Bela CHOE-C [address], [place], [address], [facility] 6 12:28:32 Edema 886370706 Completed 201103/09/2014 IMPRESSI ON: BILATERA L, LUNGS CLEAR, C/W DEPENDEN T EDEMA, HAS TAKEN HCTZ IN THE PAST WITH IMPROVEM ENT, ALSO REVIEWED DIET/LEG ELEVATIO N/WEIGHT LOSS/COM PRESSION STOCKING S; RECORDED 06/12/20 12 9:04AM BY BARBARA ARTIS ON/ADDEN DUM Brenda green [place] null, [facility] 6 15:18:56 Elevated blood-pr essure reading without diagnosi s of hyperten yue 661824939 Active Bela Mondragon PA-C [address] [facility] [address], [place], [address], [facility] 6 12:28:32 Adult health examinat ion Completed 201103/09/2014 IMPRESSI ON: PAP IS UTD, PT TO START EXERCISI NG; RECORDED 07/08/20 12 1:24PM BY BARBARA GUIDRY ON/ADDEN DUM Bela Mondragon PA-C [address] [facility] [address], [place], [address], [facility] 6 12:28:32 Pure hypercho lesterol emia 909148113 Completed 01/25/2017 Omayra garrett null, [facility] 7 14:59:23 Knee pain Completed 201203/09/2014 IMPRESSI ON: PT IN A MOMIN TO LEAVE SO DID NOT EXAMINE KNEES. WILL START WITH X-RAY SINCE MAY HAVE DJD. F/U WITH PCP FOR FURTHER ASSESSME NT. 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 SO IT COULD BE THIS.; RECORDED 05/09/20 13 10:00AM BY BARBARA GUIDRY ON/ADDEN DUM Omayra deluna, [facility] 9 15:55:45 Lipoma of skin and subcutan eous tissue (excludi ng face) 604875591 Completed 201103/09/2014 IMPRESSI ON: BACK; RECORDED 06/12/20 12 9:04AM BY BARBARA ARTIS ON/ADDEN DUM Bela Mondragon PA-C [address], [place], [address], [facility] 6 12:28:31 Low back pain 488239876 Completed 201203/09/2014 RECORDED 09/05/19 13 10:23AM BY CHERIE HERRERA MA, BARBARA ON/ADDEN DUM Bela [employer] [address] [facility] [address], [place], [address], [facility] 6 12:28:32 Lumbar sprain 115137236 Completed 200903/09/2014 RECORDED 11/12/19 10 9:28AM BY BARBARA SWEENEY ON/ADDEN DUM Bela [employer] [address] [facility] [address], [place], [address], [facility] 6 12:28:32 Recurren t major depressi ve episodes 501242594 Active Bela [employer] [address] [facility] [address], [place], [address], [facility] 6 12:28:31 Malaise and fatigue 029456690 Completed 200903/09/2014 IMPRESSI ON: LONG TALK RE WEIGHT, ADDICTIV E EATING BEHAVIOR S, WILL OCNTINUE COUNSELI NG AND TRY TO INCREASE EXERCISE . SEES DR MORALES TOO. DOES NOT FEEL SHE NEEDS MEDS FOR DEPRESSI ON, FEELS WELL MOSTLY.; RECORDED 11/12/19 10 9:28AM BY BARBARA SWEENEY ON/ADDEN DUM Bela [employer] [address] [facility] [address], [place], [address], [facility] 6 12:28:32 Administ ration of measles and mumps and rubella vaccine Completed 201103/09/2014 RESOLVED DATE: 06/13/20 12; IMPRESSI ON: NEG MUMPS TITER, NEEDS REVACCIN ATION; RECORDED 06/13/20 12 12:55PM BY OMAYRA Saleem MD, OFFICE VISIT Bela CHOE-C [address], [place], [address], [facility] 6 12:28:32 Nausea 038869541 Completed 201103/09/2014 IMPRESSI ON: RULE OUT PREGNANC Y; RECORDED 07/08/20 12 1:24PM BY BARBARA GUIDRY ON/ADDEN DUM Bela CHOE-C [address] [facility] [address], [place], [address], [facility] 6 12:28:32 Neck pain 29078973 Completed 01/25/2017 Omayra garrett [facility] 7 14:59:05 Lymphedeunice nevarez [id number] Completed 201103/09/2014 RECORDED 03/25/20 12 9:59AM BY DUNIA SILVER MA, CHINTANATI ON/ADDEN DUM Bela CHOE-C [address], [place], [address], [facility] 6 12:28:31 Obesity 553526717 Completed 01/08/2020 Bela CHOE-C [address], [place], [address], [facility] 0 17:12:44 Osteoart hritis of knee 341519872 Active Bela CHOE-C [address], [place], [address], [facility] 6 12:28:32 Otalgia 13630861 Completed 201103/09/2014 RECORDED 03/25/20 12 9:59AM BY DUNIA SILVER MA, BARBARA ON/ADDEN DUM Bela [employer] [address] [facility] [address], [place], [address], [facility] 6 12:28:31 Synoviti s/tenosy novitis - hand 265302564 Completed 200903/09/2014 IMPRESSI ON: POSSIBLE CARPAL TUNNEL SYNDROME ; RECORDED 11/12/19 10 9:28AM BY BARBARA SWEENEY ON/ADDEN DUM Bela [employer] [address] [facility] [address], [place], [address], [facility] 6 12:28:32 Joint pain in ankle and foot Completed 200903/09/2014 IMPRESSI ON: FXT FIBULA AND OTHER IN 01/01, STILL WITH AIN EXPECTED , TX WITH ULTRAM SINCE NO CONTRAIN DICATION S AND USE MOTRIN 800MG TID WITH FOOD; RECORDED 11/12/19 10 9:27AM BY BARBARA SWEENEY ON/ADDEN DUM Bela [employer] [address] [facility] [address], [place], [address], [facility] 6 12:28:32 Pain in thoracic spine 529020593 Completed 200903/09/2014 IMPRESSI ON: MUSCULAR , STRETCH; RECORDED 11/12/19 10 9:27AM BY BARBARA SWEENEY ON/ADDEN DUM Bela Ozmota PA-C [address] [facility] [address], [place], [address], [facility] 6 12:28:32 Skin sensatio n disturba fle 02108790 Completed 201103/09/2014 IMPRESSI ON: AT SITE OF PREVIOUS CONTUSIO N FROM ABOUT A MONTH AGO, WITHOUT PAIN OR WITHOUT SIGNS OF CELLULIT IS, FOR NOW WILL MONITOR; RECORDED 06/12/20 12 9:03AM BY BARBARA ARTIS ON/ADDEN DUM Bela Mondragon PA-C [address], [place], [address], [facility] 6 12:28:32 Immuniza tion refused Completed 201203/09/2014 RECORDED 05/09/20 13 10:00AM BY BARBARA GUIDRY ON/ADDEN DUM Bela Mondragon LA-C [address], [place], [address], [facility] 6 12:28:32 Plantar fascial fibromat osis 33122031 Completed 201103/09/2014 RECORDED 06/12/20 12 9:04AM BY BARBARA ARTIS ON/ADDEN DUM Bela Mondragon LA-C [address] [facility] [address], [place], [address], [facility] 6 12:28:32 Pyelonep hritis 84356346 Completed 201103/09/2014 IMPRESSI ON: SEE ABOVE, PT TO FINISH BACTRIM TO ER IF CANNOT TOLERATE PO WITH VOMITING OR FEELS DIZZY.., PT WILL CALL AND CHECK WITH SOUND TECHNICIAN SUPERVISOR TOMORROW ABOUT MAKING SURE SENSITIV ITIES MATCH BACTRIM, FLUIDS REST; RECORDED 03/25/20 12 9:59AM BY DUNIA SILVER MA, BARBARA ON/ADDEN DUM Bela Mondragon LA-C [address], [place], [address], [facility] 6 12:28:31 Hypertro phic conditio n of skin 55610622 Completed 201203/09/2014 IMPRESSI ON: AFTER WEIGHT LOSS. GETS INTERTRI GO FUNGAL INFECTIO NS DUE TO THIS; RECORDED 05/09/20 13 10:00AM BY BARBARA GUIDRY ON/ADDEN DUM Bela Mondragon PA-C [address] [facility] [address], [place], [address], [facility] 6 12:28:32 Influenz a vaccine needed [id number] 06 Completed 201103/09/2014 RECORDED 06/12/20 12 9:13AM BY PRATIBHA SILVEIRA, OFFICE VISIT Bela Mondragon PA-C [address] [facility] [address], [place], [address], [facility] 6 12:28:32 Pain in limb 08864808 Completed 201103/09/2014 IMPRESSI ON: PT TO SET UP APPT; RECORDED 03/25/20 12 9:59AM BY DUNIA SILVER MA, ANNOTATI ON/ADDEN DUM Bela Mondragon PA-C [address] [facility] [address], [place], [address], [facility] 6 12:28:32 Inflamma tion of sacroili ac joint 11481938 Completed 201103/09/2014 IMPRESSI ON: RIGHT SIDED PAIN, CHANGE TO IBUPROFE N WITH FOOD AND TYLENOL WITH CODEINE AT NIGHT. PE 05/[address] UP PT HAS PAPERWOR K; RECORDED 07/08/20 12 1:24PM BY JULEE NESBITT I, BARBARA ON/ADDEN DUM Bela Mondragon PA-C [address] [facility] [address], [place], [address], [facility] 6 12:28:32 Morbid obesity 125776770 Active Bela Mondragon PA-C [address] [facility] [address], [place], [address], [facility] 6 12:28:31 Shoulder joint pain 902360401 Completed 201103/09/2014 IMPRESSI ON: SOUNDS LIKE BURSISIT PT TO SEE ALANNA Chavez [facility] FOR INJECTIO N; RECORDED 03/25/20 12 9:59AM BY DUNIA SILVER MA, ANNOTATI ON/ADDEN DUM Bela MOCKC [address] [facility] [address], [place], [address], [facility] 6 12:28:32 Chronic sinusiti s 79175299 Completed 201103/09/2014 RECORDED 03/25/20 12 9:59AM BY DUNIA SILVER MA, ANNOTATI ON/ADDEN DUM Bela Mondragon PA-C [address], [place], [address], [facility] 6 12:28:31 Administ ration of diphther ia and tetanus vaccine Completed 201103/09/2014 RECORDED 07/08/20 12 1:24PM BY JULEE NESBITT I, CHINTANATI ON/ADDEN DUM Bela Mondragon PA-C [address], [place], [address], [facility] 6 12:28:32 Urinary tract infectio us disease 81325759 Completed 200803/09/2014 RECORDED 12/07/19 09 8:54AM BY BRENDA STEINER MA, BARBARA ON/ADDEN DUM Bela Mondragon PA-C [address], [place], [address], [facility] 6 12:28:31 Wheezing 58568041 Completed 201103/09/2014 RECORDED 03/25/20 12 9:59AM BY DUNIA SILVER MA, ANNOTATI ON/ADDEN DUM Bela Mondragon PA-C [address], [place], [address], [facility] 6 12:28:32 Inflamma tory disorder of extremit y 320987115 Completed 201104/05/2014 IMPRESSI ON: REVIEWED XRAY WITH ALPHONSE HAMILTON EXAM CONSISTE NT WITH ACHILLES TENDONIT IS, AND SWELLING NO MASS FELT; RECORDED 03/25/20 12 9:59AM BY DUNIA SILVER MA, ANNOTATI ON/ADDEN DUM Bela Mondragon PA-C [address], [place], [address], [facility] 6 12:28:32 Acute bronchit is 47336411 Completed 201104/05/2014 RECORDED 03/25/20 12 9:59AM BY DUNIA SILVER MA, BARBARA ON/ADDEN DUM Bela CHOE-C [address], [place], [address], [facility] 6 12:28:31 Acute pharyngi tis 602657284 Completed 201204/05/2014 IMPRESSI ON: + RAPID STREP, POSSIBLE RIGHT EARLY PERITONS ILLAR ABSCESS, TX WITH ABX/FLUI DS/NSAID S, IF WORSENIN G PAIN OR DIFFICUL TY SWALLOWI NG CALL OFFICE FOR ENT APPT.; RECORDED 12/16/19 13 10:04AM BY BARBARA ARTIS ON/ADDEN DUM Brenda green MA null, [facility] 6 15:19:04 Cough 86326098 Completed 201104/05/2014 RECORDED 03/25/20 12 9:58AM BY DUNIA SILVER MA, ANNOTATI ON/ADDEN DUM Brenda green MA [facility], [facility] 6 15:19:12 Degenera tion of interver tebral disc 72681868 Completed 201104/05/2014 RECORDED 03/25/20 12 9:59AM BY DUNIA SILVER MA, BARBARA ON/ADDEN DUM Bela CHOE-C [address], [place], [address], [facility] 6 12:28:32 Dizzines s and giddines s 535314000 Completed 201204/05/2014 IMPRESSI ON: NORMAL EXAM; RECORDED 09/01/19 13 1:16PM BY CHERIE HERRERA MA, BARBARA ON/ADDEN DUM Bela Mondragon PA-C [address], [place], [address], [facility] 6 12:28:32 Edema 726186827 Completed 201104/05/2014 IMPRESSI ON: BILATERA L, LUNGS CLEAR, C/W DEPENDEN T EDEMA, HAS TAKEN HCTZ IN THE PAST WITH [facility] ENT, ALSO REVIEWED DIET/LEG ELEVATIO N/WEIGHT LOSS/COM PRESSION STOCKING S; RECORDED 06/12/20 12 9:04AM BY BARBARA ARTIS ON/ADDEN DUM Brenda green [place] null, [facility] 6 15:18:56 Adult health examinat ion Completed 201304/05/2014 IMPRESSI ON: PAP IS OVERDUE, PT WILL ARRANGE THIS, PT HAS AN IUD IN PLACE. PT WILL WORK ON DIET AND EXERCISE .; RECORDED 01/17/20 14 10:22AM BY BARBARA ARTIS ON/ADDEN DUM Bela CHOE-C [address], [place], [address], [facility] 6 12:28:32 Knee pain Completed 02/02/2019 [facility] 15:[facility]:45 Lipoma of skin and subcutan eous tissue (excludi ng face) 646866296 Completed 201104/05/2014 IMPRESSI ON: BACK; RECORDED 06/12/20 12 9:04AM BY BARBARA ARTIS ON/ADDEN DUM Bela MOCKC [address], [place], [address], [facility] 6 12:28:31 Low back pain 683271708 Completed 201204/05/2014 IMPRESSI ON: X 1 DAY, OCCURED WHILE BENDING OVER; RECORDED 09/05/19 13 10:23AM BY CHERIE HERRERA MA, BARBARA ON/ADDEN DUM Bela CHOE-C [address], [place], [address], [facility] 6 12:28:32 Lumbar sprain 430495676 Completed 200904/05/2014 RECORDED 11/12/19 10 9:28AM BY BARBARA SWEENEY ON/ADDEN DUM Bela Mondragon [facility] [address] [facility] [address], [place], [address], [facility] 6 12:28:32 Malaise and fatigue 736592229 Completed 200904/05/2014 IMPRESSI ON: LONG TALK RE WEIGHT, ADDICTIV E EATING BEHAVIOR S, WILL OCNTINUE COUNSELI NG AND TRY TO INCREASE EXERCISE . SEES DR MORALES TOO. DOES NOT FEEL SHE NEEDS MEDS FOR DEPRESSI ON, FEELS WELL MOSTLY.; RECORDED 11/12/19 10 9:28AM BY BARBARA SWEENEY ON/ADDEN DUM Bela [facility] [address] [facility] [address], [place], [address], [facility] 6 12:28:32 Administ ration of measles and mumps and rubella vaccine Completed 201104/05/2014 RESOLVED DATE: 06/13/20 12; IMPRESSI ON: NEG MUMPS TITER, NEEDS REVACCIN ATION; RECORDED 06/13/20 12 12:55PM BY OMAYRA Saleem MD, OFFICE VISIT Bela Mondragon [facility] [address] [facility] [address], [place], [address], [facility] 6 12:28:32 Nausea 712053644 Completed 201104/05/2014 IMPRESSI ON: RULE OUT PREGNANC Y; RECORDED 07/08/20 12 1:24PM BY BARBARA GUIDRY ON/[facility] [address] [facility] [address], [place], [address], [facility] 6 12:28:32 Lymphede ia 850388275 Completed 201104/05/2014 RECORDED 03/25/20 12 9:59AM BY DUNIA SILVER MA, CHINTANATI ON/ADDEN DUM Bela Mondragon PA-C [address], [place], [address], [facility] 6 12:28:31 Otalgia 50586885 Completed 201104/05/2014 RECORDED 03/25/20 12 9:59AM BY DUNIA SILVER MA, ANNOTLUCIA ON/ADDEN DUM Bela Mondragon PA-C [address], [place], [address], [facility] 6 12:28:31 Synoviti s/tenosy novitis - hand 407232808 Completed 200904/05/2014 IMPRESSI ON: POSSIBLE CARPAL TUNNEL SYNDROME ; RECORDED 11/12/19 10 9:28AM BY BARBARA SWEENEY ON/ADDEN DUM Bela Mondragon PA-C [address], [place], [address], [facility] 6 12:28:32 Joint pain in ankle and foot Completed 200904/05/2014 IMPRESSI ON: FXT FIBULA AND OTHER IN 01/01, STILL WITH AIN EXPECTED , TX WITH ULTRAM SINCE NO CONTRAIN DICATION S AND USE MOTRIN 800MG TID WITH FOOD; RECORDED 11/12/19 10 9:27AM BY BARBARA SWEENEY ON/ADDEN DUM Bela Mondragon PA-C [address], [place], [address], [facility] 6 12:28:32 Pain in thoracic spine 201707358 Completed 200904/05/2014 IMPRESSI ON: MUSCULAR , STRETCH; RECORDED 11/12/19 10 9:27AM BY BARBARA SWEENEY ON/ADDEN DUM Bela Mondragon PA-C [address], [place], [address], [facility] 6 12:28:32 Skin sensatio n disturba nce 25939776 Completed 201104/05/2014 IMPRESSI ON: AT SITE OF PREVIOUS CONTUSIO N FROM ABOUT A MONTH AGO, WITHOUT PAIN OR WITHOUT SIGNS OF CELLULIT IS, FOR NOW WILL MONITOR; RECORDED 06/12/20 12 9:03AM BY BARBARA ARTIS ON/ADDEN DUM Bela Mondragon PA-C [address], [place], [address], [facility] 6 12:28:32 Knee pain Completed 201104/05/2014 RECORDED 03/25/20 12 9:59AM BY DUNIA SILVER MA, BARBARA ON/ADDEN DUM Omayra garrett [facility] 9 15:55:45 Immuniza tion refused Completed 201204/05/2014 RECORDED 05/09/20 13 10:00AM BY BARBARA GUIDRY ON/ADDEN DUM Bela Ozmota PA-C [address], [place], [id number], [facility] 6 12:28:32 Plantar fascial fibromat osis [id number] Completed 201104/05/2014 RECORDED 06/12/20 12 9:04AM BY BARBARA ARTIS ON/ADDEN DUM Bela Mondragon PA-C [address], [place], [address], [facility] 6 12:28:32 Pyelonep hritis [id number] Completed 201104/05/2014 IMPRESSI ON: SEE ABOVE, PT TO FINISH BACTRIM TO ER IF CANNOT TOLERATE PO WITH VOMITING OR FEELS DIZZY.., PT WILL CALL AND CHECK WITH SOUND TECHNICIAN SUPERVISOR TOMORROW ABOUT MAKING SURE SENSITIV ITIES MATCH BACTRIM, FLUIDS REST; RECORDED 03/25/20 12 9:59AM BY DUNIA SILVER MA, BARBARA ON/ADDEN DUM Bela Mondragon PA-C [address], [place], [address], [facility] 6 12:28:31 Hypertro phic conditio n of skin 25401756 Completed 201204/05/2014 IMPRESSI ON: AFTER WEIGHT LOSS. GETS INTERTRI GO FUNGAL INFECTIO NS DUE TO THIS; RECORDED 05/09/20 13 10:00AM BY BARBARA GUIDRY ON/ADDEN DUM Bela CHOE-C [address] [facility] [address], [place], [address], [facility] 6 12:28:32 Influenz a vaccine needed [id number] 06 Completed 201104/05/2014 RECORDED 06/12/20 12 9:13AM BY PRATIBHA SILVEIRA, OFFICE VISIT Bela CHOE-C [address] [facility] [address], [place], [address], [facility] 6 12:28:32 Pain in limb 66001147 Completed 201104/05/2014 IMPRESSI ON: PT TO SET UP APPT; RECORDED 03/25/20 12 9:59AM BY DUNIA SILVER MA, BARBARA ON/ADDEN DUM Bela Mondragon PA-C [address] [facility] [address], [place], [address], [facility] 6 12:28:32 Inflamma tion of sacroili ac joint 67849880 Completed 201104/05/2014 IMPRESSI ON: RIGHT SIDED PAIN, CHANGE TO IBUPROFE N WITH FOOD AND TYLENOL WITH CODEINE AT NIGHT. PE 05/[address] UP PT HAS ANGEL K; RECORDED 07/08/20 12 1:24PM BY BARBARA GUIDRY ON/ADDEN DUM Bela MOCKC [address] [facility] [address], [place], [address], [facility] 6 12:28:32 Shoulder joint pain 132133408 Completed 201104/05/2014 IMPRESSI ON: SOUNDS LIKE BURSISIT PT TO SEE [facility] [place] [facility]; RECORDED 03/25/20 12 9:59AM BY DUNIA SILVER MA, BARBARA ON/ADDEN DUM Bela Mondragon PA-C [address], [place], [address], [facility] 6 12:28:32 Chronic sinusiti s 99012668 Completed 201104/05/2014 RECORDED 03/25/20 12 9:59AM BY DUNIA SILVER MA, BARBARA ON/ADDEN DUM Bela Mondragon PA-C [address] [facility] [address], [place], [address], [facility] 6 12:28:31 Administ ration of diphther ia and tetanus vaccine Completed 201104/05/2014 RECORDED 07/08/20 12 1:24PM BY BARBARA GUIDRY ON/ADDEN DUM Bela Mondragon PA-C [address] [facility] [address], [place], [address], [facility] 6 12:28:32 Urinary tract infectio us disease 77037484 Completed 200804/05/2014 RECORDED 12/07/19 09 8:54AM BY BRENDA STEINER MA, BARBARA ON/ADDEN DUM Bela Mondragon PA-C [address] [facility] [address], [place], [address], [facility] 6 12:28:32 Wheezing 36783575 Completed 201104/05/2014 RECORDED 03/25/20 12 9:59AM BY DUNIA SILVER MA, BARBARA ON/ADDEN DUM Bela Mondragon PA-C [address] [facility] [address], [place], [address], [facility] 6 12:28:32 Dysuria 64491000 Completed 06/29/2016 Brenda green [place] null, [facility] 6 15:19:10 Acute pharyngi tis 970809009 Completed 06/29/2016 [place] Adams, [facility] 6 15:19:04 Acute vaginiti s 27790552 Completed 06/29/2016 [place] Adams, [facility] 6 15:18:52 Cough 50743280 Completed 06/29/2016 [place] F[place] Adams, [facility] 6 15:19:12 Palpitat ions 67188553 Completed 01/25/2017 Omayra deluna [facility] 7 14:59:02 Spasm of back muscles 244464994 Completed 01/25/2017 Omayra deluna [facility] 7 14:59:27 Atrial fibrilla tion 46425106 Completed 02/02/2019 Omayra deluna [facility] 9 15:56:00 Spinal stenosis in cervical region 73799345 Completed 11/30/2014 mri does not show this Bela CHOE-C [address], [place], [address], [facility] 6 12:28:32 Snoring 16205793 Completed 01/25/2017 Omayra deluna [facility] 7 14:58:59 Thyroid nodule 977143801 Active Bela Giancarlo CHOE-C [address], [place], [address], [facility] 6 12:28:31 Insomnia 299248354 Active Belajihan Mondragon PA-C [address], [place], [address], [facility] 6 12:28:31 Degenera tion of thoracic interver tebral disc 37491684 Active T1/T2 Bela CHOE-Man [address], [place], [address], [facility] 6 12:28:32 Degenera tion of cervical interver tebral disc 10755868 Completed 01/25/2017 Omayra Curiel-Pamela deluna, [facility] 7 14:59:09 Edema 906410412 Completed 06/29/2016 Brenda green [place] null, [facility] 6 15:18:56 Rapid atrial fibrilla tion 083580772 Completed 01/27/2018 Omayra deluna, [facility] 8 11:21:10 Paroxysm al atrial fibrilla tion 914772014 Active Omayra garrett null, [facility] 6 15:17:25 Panic disorder 806733365 Completed 02/02/2019 Omayra deluna, [facility] 9 15:55:48 Patent foramen ovale 548511086 Active Omayra Curiel-Pamela marcelinonmarta deluna, [facility] 6 15:17:25 Pain of joint 22667530 Completed 01/25/2017 Omayra deluna, [facility] 7 14:59:13 Anxiety 39206507 Completed 01/08/2020 Bela Mondragon PA-C [address], [place], [address], [facility] 0 17:12:31 Asthma 193383545 Completed 201701/08/2020 Bela CHOE-Man [address], [place], [address], [facility] 0 17:12:58 Ex-smoke r 5077579 Active 2017 Brenda green MA null, [facility] 8 15:42:54 Small bowel obstruct ion 144451789 Active 2018 Brenda green [place] null, [facility] 9 09:46:54 Generali zed anxiety disorder 37302432 Active 2019 Bela Mondragon PA-C [address], [place], [address], [facility] 0 17:12:32 Mild intermit tent asthma 915560554 Active 2019 Bela Mondragon PA-C [address], [place], [address], [facility] 0 17:13:08 Lymphede [facility] of [facility] extrem[facility] y 029808664 Active 2019 Bela MOCKC [address], [place], [address], [facility] 0 17:13:31 Obstruct jefry sleep apnea syndrome 98389821 Active 2022 Cabrera Mondragon PA-C [address], [place], [address], [facility] 3 17:09:42 Pain of left hip joint 99932365983 9100 Active 2022 Cabrera Mondragon PA-C [address], [place], [address], [facility] 3 17:10:00 Lateral epicondy litis of left humerus 75141242655 9100 Active 2022 Cabrera Mondragon PA-C [address], [place], [address], [facility] 3 13:33:40 Problem Notes None recorded. Procedures Surgical History Date Name Laterality Status Provider Name and Address Organization Details Recorded Time 05/21/20 23 Endoscopic us exam esoph completed Leslie Alba [facility] 05/21/2023 11:10:55 04/20/20 23 laparoscopic appendectomy completed Leslie Alba [facility] 04/22/2023 10:12:44 04/20/20 23 Appendectomy completed Avelina Encinas RN [facility] 04/30/2023 10:29:16 04/19/20 23 Appendectomy completed Avelina Encinas RN [facility] 04/25/2023 09:55:00 11/24/19 22 cardioversion completed Avelina Encinas RN [facility] 11/27/2021 13:27:24 01/24/20 17 extraction of wisdom tooth completed Brenda zurita MA [facility] 01/12/2019 09:34:35 Mammogram screening completed Brenda zurita [facility] 06/29/2016 15:20:32 Colonoscopy completed Brenda zurita [facility] 06/29/2016 15:20:36 Imaging Results Imaging Date Name Status LastModified by Organiz ation Details LastModified Time 05/21/2023 upper endoscopy procedure (EGD) (PROC) completed [email or web address] [facility] (Medical Records) [address] [place], [address], 05/21/2023 11:11:15 05/21/2023 US, abdomen, complete completed [email or web address] [facility] (Medical Records) [address] [place], [address], 05/22/2023 12:50:47 Procedure Notes None recorded. Medical Equipment None Reported. Allergies No known drug allergies Medications Name Sig Start Date Stop Date Status Note LastModified by Organization Details LastModified Time mirena 20 mcg/24hr iud 03/27 completed Not Available Not Available Not Available gabapenti n 100 mg caps active Not Available Not Available Not Available naproxen 500 mg tabs active Not Available Not Available Not Available cartia xt 120 mg cp24 active Not [...] RECORDED 12/14/19 10 9:55AM BY ANDREWS ONTIVEROS, PALaraC, MEDICATI ON AUTO-CAMILLE CTIVATIO N; Not Available [...] day by oral route for 5 days. 11/04 /2016 completed Not Available Not Available Not Available [...] cm [place]O Gold[facility] 01/08/2023 15:48:36 Date Recorded Body height Body mass index (BMI) Body weight Heart rate Oxygen saturation Oxygen saturation in Arterial blood by Pulse oximetry Body temperature Systolic blood pressure Diastolic blood pressure Provider Name and Address Organization Details Last Updated DateTime 171.45 cm 50.2 kg/m2 790528. 52 g 60 /min 97 % 97 % 98.3 [degF] 138 mm[Hg] 87 mm[Hg] [facility]upali [facility] 3 15:56:22 Date Recorded Body height Body mass index (BMI) Body weight Heart rate Oxygen saturation Oxygen saturation in Arterial blood by Pulse oximetry Body temperature Systolic blood pressure Diastolic blood pressure Provider Name and Address Organization Details Last Updated DateTime 3 171.45 cm 49.2 kg/m2 876813. 97 g 94 /min 96 % 96 % 97.8 [degF] 113 mm[Hg] 80 mm[Hg] Isela Metz [facility] 3 13:21:43 Date Recorded Body height Body mass index (BMI) Body weight Heart rate Oxygen saturation Oxygen saturation in Arterial blood by Pulse oximetry Body temperature Systolic blood pressure Diastolic blood pressure Provider Name and Address Organization Details Last Updated DateTime 3 171.45 cm 48.1 kg/m2 008138. 82 g 68 /min 96 % 96 % 98.3 [degF] 160 mm[Hg] 98 mm[Hg] Isela Metz [facility] 3 14:57:00 Social History Question Answer Notes LastModified by Organizat ion Details LastModified Time Tobacco Smoking Status Former Smoker Cherie deluna [facility] 05/18/2014 10:29:49 Do You Have An Advance Directive? No [email or web address] Information not available 06/20/2022 What Is Your Level Of Alcohol Consumption? Occasional [email or web address] Information not available 12/29/2014 Is Blood Transfusion Acceptable In An Emergency? Yes [email or web address] Information not available 01/20/2016 What Is Your Level Of Caffeine Consumption? Occasional [email or web address] Information not available 12/29/2014 How Much Tobacco Do You Chew? None Information not available 06/29/2016 In The 14 Days Before Symptom Onset, Have You Had Close Contact With A Laboratory-confi rmed COVID-19 While That Case Was Ill? No [email or web address] Information not available 06/20/2022 In The 14 Days Before Symptom Onset, Have You Had Close Contact With A Person Who Is Under Investigation For COVID-19 While That Person Was Ill? No Information not available 06/20/2022 Have You Been To An Area Known To Be High Risk For COVID-19? No [email or web address] Information not available 06/20/2022 Are You Currently Employed? Yes [email or web address] Information not available 12/29/2014 What Type Of Diet Are You Following? REGULAR [email or web address] Information not available 12/29/2014 Which Illicit Or Recreational Drugs Have You Used? 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 With Others (Juan Carlos) And 2 Daughters [email or web address] Information not available 06/20/2022 Do You Take Precautions To Prevent Distracted Driving? Yes [email or web address] Information not available 01/20/2016 How Often Do You Need To Have Someone Help You When You Read Instructions, Pamphlets, Or Other Written Material From Your Doctor Or Pharmacy? Sometimes [email or web address] Information not available 01/20/2016 Have You Served [...] Of Your Most Recent Tobacco Screening? 06/20/2022 [email or web address] Information not available 06/20/2022 How Many Children Do You Have? 2 Adriana And Renee Information not available 03/27/2018 What Is Your Current Pack Years? [email or web address] Information not available 06/20/2022 Do You Use Protection During Sex? No Information not available 06/29/2016 Seat Belts Used Routinely Yes [email or web address] Information not available 06/20/2022 Are You Sexually Active? Yes Information not available 06/29/2016 Smoke Alarm In Home Yes [email or web address] Information not available 06/20/2022 Are You Passively Exposed To Smoke? No Information not available 06/29/2016 General Stress Level Medium [email or web address] Information not available 06/20/2022 Do You Use Sunscreen Routinely? Yes [email or web address] Information not available 12/29/2014 How Many Years Have You Smoked Tobacco? 10 [email or web address] Information not available 12/29/2014 Do You Or Have You Ever Used Any Other Forms Of Tobacco Or Nicotine? No [email or web address] Information not available 06/20/2022 Sex: Unknown Functional Status Question Answer Note LastModified by Organizat ion Details LastModified Time Are you able to walk? [email or web address] Information not available 06/20/2022 Are you able to care for yourself? Yes Information not available 12/29/2014 What is your exercise level? Occasional [email or web address] Information not available 02/02/2019 Mental Status None recorded. Family History Relationship Description Onset Age of this Age Resolved Age Notes LastModified by Organization Details LastModified Time Father Harmful pattern of use of alcohol [email or web address] Not available 2019 15:29:15 Notes:Pt is adopted [...] Vaccine Type Date Status Note Provider Nam e and Address Organization Details Recorded Time COVID-19, mRNA, LNP-S, PF, 30 mcg/0.3 mL dose 02/28/2021 completed LUIS FERNANDO Artis, [facility] [place] 12/13/2021 11:25:33 COVID-19, mRNA, LNP-S, PF, 30 mcg/0.3 mL dose 03/21/2021 completed Pratibha Silveira MA [facility] 12/13/2021 11:25:33 MMR 10/21/2002 completed Not Available [facility] 03/09/2014 14:00:38 Tdap 06/12/2012 completed Not Available [facility] 03/09/2014 14:00:38 MMR 06/12/2012 completed Not Available [facility] 03/09/2014 14:00:38 Past Encounters Encounter ID Performer Location Encounter Start Date Encounter Closed Date Diagnosis/Indication Diagnosis SNOMED-CT Code Diagnosis ICD10 Code Diagnosis Note [id number] [facility] [address] [place] [address] 11/13/2006 00:00:00 [id number] [facility] [address] [place] [address] 12/23/2006 00:00:00 [id number] auto[facility]Comm erce [address] [place] [address] 07/28/2007 00:00:00 [id number] auto[facility]Comm erce [address] [place] [address] 12/06/2008 00:00:00 [id number] auto[facility]Comm erce [address] [place] [address] 03/25/2009 00:00:00 [id number] auto[facility]Comm erce [address] [place] [address] 04/28/2009 00:00:00 [id number] auto[facility] erce [address] [place] [address] 11/11/2009 00:00:00 [id number] auto[facility]Comm erce [address] [place] [address] 12/20/2009 00:00:00 [id number] auto[facility]Comm erce [address] [place] [address] 02/17/2010 00:00:00 [id number] [address] [place] [address] 07/25/2010 00:00:00 [id number] auto[address]Comm erce [address] [place] [address] 09/13/2010 00:00:00 [id number] auto[address]Comm erce [address] [place] [address] 11/11/2010 00:00:00 [id number] auto[address]Comm [address]ce [address] [place] [address] 02/01/2011 00:00:00 [id number] autoEComm erce [address] [facility] [address] [place] [address] 02/05/2011 00:00:00 [id number] autoEComm erce [address] [place] [address] 02/06/2011 00:00:00 [id number] auto[facility]Comm erce [address] [place] [address] 02/15/2011 00:00:00 [id number] autoEComm erce [address] [facility] [address] [place] [address] 03/08/2011 00:00:00 [id number] autoEComm erce [address] [place] [address] 11/26/2011 00:00:00 [id number] autoEComm erce [address] [place] [address] 11/30/2011 00:00:00 [id number] auto[facility]Comm erce [address] [place] [address] 01/09/2012 00:00:00 [id number] autoEComm erce [address] [facility] [address] [place] [address] 03/25/2012 00:00:00 [id number] autoEComm erce [address] [place] [address] 06/12/2012 00:00:00 [id number] autoEComm erce [address] [place] [address] 07/08/2012 00:00:00 [id number] autoEComm erce [address] [facility] [address] [place] [address] 09/01/2012 00:00:00 [id number] autoEComm erce [address] [place] [address] 09/05/2012 00:00:00 [id number] autoEComm erce [address] [place] [address] 10/16/2012 00:00:00 [id number] autoEComm erce [address] [place] [address] 12/15/2012 00:00:00 [id number] autoEComm erce [address] [place] [address] 05/09/2013 00:00:00 [id number] autoEComm erce [address] [place] [address] 07/27/2013 00:00:00 [id number] autoEComm erce [address] [place] [address] 12/25/2013 00:00:00 [id number] autoEComm erce [address] [place] [address] 01/16/2014 00:00:00 [id number] SARAH Agrawal Main Office [address] [facility] [address] [place], [place] [address] 05/18/2014 10:10:59 05/18/2014 10:49:51 Dysuria 70427284 UA c/w UTI, will tx and send culture Acute pharyngitis 195498654 rapid strep neg. [id number] Juan Diego Cali MD Main Office [address] [facility] [address] [place], [place] [address] 05/29/2014 11:51:21 05/29/2014 12:23:45 Cough 58993950 Sounds inflammato ry in nature likely post viral infection vs allergy related. No current evidence for bacterial process. Will address inflammati on/broncho constricti on while waiting to see if allergy rx helps. Would need re-eval and consider of abx/CXR if persistent or sputum becomes purulent. [id number] SARAH Velasco Main Office [address] [facility] [address] [place] [address] 06/08/2014 13:52:54 06/08/2014 14:36:30 Palpitations 84123025 likely the endocrine system resetting itself after being on prednisone . reassuranc e. call if worsening [id number] SARAH Agrawal Main Office [address] [facility] [address] [place] [address] 09/20/2014 11:26:27 09/20/2014 11:45:06 Backache 911892782 Continue cyclobenza tete and finish course of prednisone , just started 2d ago, if back pain persists/w hernandoens will refer to PT. [id number] SARAH Velasco Main Office [address] [facility] [address] [place] [address] 11/08/2014 09:40:15 11/08/2014 10:41:46 Acute pharyngitis 714284063 Cough 97877256 with fev er and body aches on day 6, suspect bacterial process such as pneumonia. will treat empiricall y. f/u if worsening [id number] SARAH Velasco Main Office [address] [facility] [address] [place] [address] 11/17/2014 16:24:25 11/17/2014 17:32:05 Palpitations 88796834 Atrial fibrillation 22060430 new onset with RVR. not clear if pain in her upper back is related to the afib. to ER for lowering HR and further assessment for new onset afib Neck pain 18508411 with radiating sxs. likely a cervical radiculopa thy. but it is possible that it is something cardiac related to the afib. will be further assessed in the ER. [id number] SARAH Velasco Main Office [address] [facility] [address] [place] [address] 11/23/2014 13:19:45 11/23/2014 14:23:50 Atrial fibrillation 42762753 rate well controlled . she will f/u with cardio as planned. Spinal guerrero nosis in cervical region 42670199 concerning that she has a positive babinski [...] before next visit in 2 wks. Snoring 55532248 Thyroid nodule 900580771 Insomnia 341565426 see a elena discussion about gabapentin [id number] Omayra rush MD Main Office [address] [facility] [address] [place] [address] 12/13/2014 14:13:19 12/13/2014 14:49:18 Atrial fibrillation 62169172 on meds below and doing well continue followup with cardiology Degenerati on of cervical intervertebral disc 21158791 trial of tramadol Thyroid nodule 971642091 pt will get thyroid nodule looked at, most likely will get biopsy Edema 806578462 [id number] Omayra rush MD Main Office [address] [facility] [address] [place] [address] 12/29/2014 09:06:58 12/29/2014 10:00:23 Adult health examination 518448396 utd on screening Degenerati on of cervical intervertebral disc 89881091 pt is on tramadol and it helps, still having pain, pt is waiting for PT apt, will have my staff call and check on it Atrial fibrillation 69443274 on meds below and doing well continue followup with cardiology , only on FS asa and cartia, continue Thyroid nodule 330646591 needle biopsy later this month, will hold asa for 5 days prior and then will ask thyroid surgeon when she can restart, keep on all other rmeds Edema 982437321 [id number] SARAH Love Main Office [address] [facility] [address] [place] [address] 08/03/2015 11:18:40 08/03/2015 11:44:57 Cough 80005334 R05 Symptomati c treatment- lots of fluids, rest, tea with honey, OTC cough drops/ cough med as needed, humidifier as needed. Tylenol or ibuprofen for fever/ pain. Return for worsening/ concerns. [id number] Bela Mondragon PA-C Main Office [address] [facility] [address] [place] [address] 12/19/2015 09:57:59 12/19/2015 11:39:30 Palpitations 85047717 R00.2 Rapid atri al fibrillation 930590598 I48.91 Pt. is referred by ambulance to [facility] ER for management of rapid arrhythmia . PT. was maintained on O2 by nasal canula on 2L until paramedics arrived. Pt. will be seen in hospital f/u after the discharge and sleep study will be arranged for her. Note faxed to ER. [id number] Bela Mondragon PA-C Main Office [address] [facility] [address] [place] [address] 12/21/2015 10:51:33 12/21/2015 11:58:58 Paroxysmal atrial fibrillation 547035869 I48.0 Recommend to avoid alcohol. Check TSH and CBC. Schedule echocardio gram and sleep study. Consider cardiac referral. Panic disorder 740111287 F41.0 Pt. is on Tramadol for neck pain which will interact with SSRIs. Will recommend to restart counseling RIVER and use Lorazepam PRN for panic attacks. PT. will address this at f/u with PCP. Snoring 90484725 R06.83 Sleep study referral is made to do RIVER. [id number] Omayra rush MD Main Office [address] [facility] [address] [place] [address] 01/02/2016 13:10:18 01/02/2016 14:49:25 Paroxysmal atrial fibrillation 495723199 I48.0 2 documented episodes total, one in 12/09 and one a year ago. THe one in in 12/09 was after heavy drinking the night before, pt with a small PFO on Echo, will start a baby aspirin and see dR Brandt tomorrw Edema 710631800 R60.9 continue hctz Pain of joint 95858687 M 25.50 pt with diffuse joint pain, she finds she is so much more comfortabl e on tramadol 100mg bid Patent foramen ovale 204 589972 Q21.1 seen on echo, started pt on a baby aspirin today Anxiety 03034330 F41.9 will work on this and her eating issues, she feels she is addicted to food. meetin with Gretta today [id number] Omayra rush MD Main Office [address] [facility] [address] [place] [address] 01/20/2016 14:12:02 01/20/2016 15:11:46 Adult health examination 651815126 Z00.00 utd on screening Screening for malignant neoplasm of breast 750590411 Z12.39 pt will arrange Patent foramen ovale [id number] Q21.1 seen on echo, started pt on a baby aspirin and cardiology has reviewed with her Paroxysmal atrial fibrillation 900298119 I48.0 2 documented episodes total, one in [...] a shorter monitor she could do Edema 525545762 R60.9 continue hctz [id number] Omayra rush MD Main Office [address] [address] 06/06/2016 13:54:52 06/06/2016 14:26:07 Atrial fibrillation 16140293 I48.91 regular rhythmn today, on baby aspirin, no recent episodes. one was associated with alcohol in the past Acute pharyngitis 653953 003 J02.9 neg quick strep, seems viral Cough 32641260 R05 use cough med no abx needed [id number] Lan Oliver MD Main Office [address] [address] 06/09/2016 10:25:58 06/09/2016 11:21:14 Cough variant asthma 900009000 J45.991 She was instructed to call next week if her symptoms persist. This may be a URI which has set off asthma. [id number] Bela Mondragon PA-C Main Office [address] [address] [place] [address] 06/11/2016 10:46:37 06/11/2016 11:26:31 Asthmatic bronchitis 470900942 J45.909 R/o pneumonia. Chest XRAy to be done. Continue Prednisone . Taper down to 40 mg for 2 days, 30 for 2 days, 20 for 2, 10 for 2. UP draft with Albuterol given in the office. Continue cough meds , rest and fluids. [id number] SARAH Love Main Office [address] [address] [place] [address] 06/29/2016 15:09:06 06/29/2016 15:58:04 Acute bacterial bronchitis 135900507 J20.9 Improving though she does still have a cough, will repeat CBC to check WBC. Continue inhaler/ cough med as needed. Elevated blood-pressure reading without diagnosis of hypertension 018691216 R03.0 High BP today, patient notes her BP has been higher lately, will have her f/u in 2 weeks for recheck of BP and she will have BMP done. [id number] Bela Mondragon PA-C Main Office [address] [address] [place] [address] 07/30/2016 13:44:57 07/30/2016 14:59:36 Benign essential hypertension 3632374 I10 [id number] Bela Mondragon PA-C Main Office [address] [address] [place] [address] 10/26/2016 14:44:08 10/26/2016 15:35:24 Acute pharyngitis 583083636 J02.9 Sat water gargles and take OTC pain meds. Elevated blood-pressure reading without diagnosis of hypertension 181213977 R03.0 BP remains borderline . Pt. is on HCTZ 25 mg and is recommende d to continue. Repeat BMP. F/u with PCP in 3-4 m. Keep low sodium and low caffeine diet. [id number] Juan Diego Cali MD Main Office [address] [address] [place] [address] 10/27/2016 10:46:26 10/27/2016 11:22:38 Acute pharyngitis 824517136 J02.9 Given active abx therapy which should [...] swallow oral secretions . Exudative pharyngitis 12 1773669 J02.9 [id number] Cabrera Mondragon PA-C Main Office [address] [address] 10/30/2016 08:51:17 10/30/2016 09:54:13 Acute pharyngitis 776990714 J02.9 strep neg, but persists despites 10 days of amox - ? monet-tonsi lar abscess - see below Dental abscess 047716922 K04.7 s/p amox x 10 days - next f/u 3.28 for tooth extraction Peritonsillar abscess 15 115890 J36 ? caused by dental abscess? Low back pain 607458854 M54.5 Impacted cerumen 2808953 6 H61.21 mild - mod R ear [id number] Omayra rush MD Main Office [address] [address] 11/26/2016 08:54:30 11/26/2016 09:29:41 Amenorrhea 90797231 N91.2 neg test Gastroesop hageal reflux disease 489669474 K21.9 untx, quite symptomati c, that is what nausea is form, tx and check h pylori Nausea 666565840 R11.0 due to GERD return 6 weeks, check any discomfort after eating is resolved, if not refer to GI Body mass index 40+ - severely obese 052369025 Z68.41 Obesity 264919349 E66.9 [id number] Omayra rush MD Main Office [address] [address] 01/25/2017 14:31:24 01/25/2017 15:18:18 Adult health examination 222955051 Z00.00 utd on screening except mammogram, pt iwll arrange, needs to work on diet and exercise Screening for malignant neoplasm of breast 157179700 Z12.39 pt will arrange Urinary incontinence 165 664661 R32 on meds Morbid obesity 386818882 E66.01 Obesity 328495408 E66.9 Paroxysmal atrial fibrillation 839522100 I48.0 2 documented episodes total, one in [...] trigger for afib Pain in right knee 28183 11756 14754 M25.561 Sleep apnea 93228264 G47 .30 pt tested positive but has not gotten CPAP yet, needs to make a visit [id number] SARAH Love Main Office [address]40 [facility] [address] [place] [address] 10/10/2017 15:31:26 10/10/2017 16:02:27 Wheezing 90480679 R06.2 Cough 95962610 R05 Symptomati c treatment- lots of fluids, rest, tea with honey, OTC cough drops/ cough med as needed, humidifier as needed. Tylenol or ibuprofen for fever/ pain. Return for worsening/ concerns. Delsym OTC. Acute bronchitis 6944693 2 J20.9 Pain in right knee 22047 86746 03789 M25.561 had been on tramadol then lost her insurance, requests refill. will fill x 1 month and she will need f/u with PCP to get re-establi shed with med. [id number] Cabrera Mondragon PA-C Main Office [address]40 [facility] [address] [place] [address] 10/28/2017 15:53:21 10/28/2017 17:35:33 Cough 64909981 R05 check cxr to r/o pna -- ? d/t pnd Pain of right wrist 3169 894199 02848 M25.531 ? CTS - neg tinels/pha lens/finkl estein -- will get OT eval and rec use wrist splint hs Allergic rhinitis 981255 04 J30.9 Asthma 459514083 J45.20 [id number] Cabrera Mondragon PA-C Main Office [address] [address] [place] [address] 11/18/2017 13:44:44 11/18/2017 15:46:12 Cough 50016507 R05 neg cxr, less but persists - pt concerned - see below Dyspnea 350870037 R06.00 nl ekg and spirometry - offered re-assuran ce Asthma 084497847 J45.20 will check spirometry - see above - yue nl, but pt used to take advair yrs ago and states she feels like her lungs are still inflamed/h ave a lot of mucous - will give trial of ICS to see if help Paroxysmal atrial fibrillation 498562300 I48.0 no problems c this in a long time - see above Obstructiv e sleep apnea syndrome 36149477 G47.33 no get cpap machine - encouraged pt to f/u c sleep med Seasonal a llergic rhinitis 759077512 J30.2 cont singulair as dir [id number] Omayra rush MD Main Office [address] [address] [place] [address] 01/27/2018 10:50:09 01/27/2018 11:48:58 Adult health examination 785666388 Z00.00 , needs to work on diet and exercise, eats a lot of bread and pasta, pt needs ot get temptation s out of the house, 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 [id number] Cabrera Mondragon PA-C Main Office [address]40 [facility] [address] [place] [address] 03/27/2018 11:24:04 03/27/2018 12:19:20 Lateral epicondylitis 481735134 M77.11 will give 2 options of TE support - she will decide which is covered better / fits better, as well as rec wrist support at hs d/t her sleeping position (R hand bent under head - full wrist flexion), and get pssp eval [id number] Cabrera Mondragon PA-C Main Office [address] [facility] [address] [place] [address] 06/11/2018 09:23:10 06/11/2018 10:12:36 Body mass index 40+ - severely obese 260717165 Z68.42 urged pt to see nutritioni in [place], and if no sig improvemen t then [...] counseling and/or coordinati on of care. Fatigue 61479807 R53.83 Anxiety 96670151 F41.9 see above re: therapist Morbid obesity 496945474 E66.01 [id number] Omayra rush MD Main Office [address] [address] [place] [address] 07/30/2018 10:40:47 07/30/2018 11:37:06 Acute asthma 350478245 J45.901 not on any control meds, will start inhaled steroid, pre proair and singulair and return in 3 months will get spirometry then [id number] Juan Diego Cali MD Main Office [address] [address] [place] [address] 01/12/2019 09:27:00 01/12/2019 10:40:07 Indigestion 836639736 K30 regular diet, avoid offending foods. Trial of PPI and check for recurrence of hpylori. Has followup with Dr Veena Mccarthy in a month Pain in left knee 088823 1139 22118 M25.562 PT, discuss at followup, will try physical therapy, pt has multiple joint pains for years Diarrhea 98558192 R19.7 ? IBS, try daily fiber and probiotic, followup in a month, if not better consider GI eval. Pt can try dairy eliminatio n for a week, does not have symptoms of gluten intoleranc e. [id number] Omayra rush MD Main Office [address] [facility] [address] [facility] [place] [address] 02/02/2019 15:28:28 02/02/2019 16:19:18 Adult health examination 366897483 Z00.00 eating better, wants to lose weight, is due for mammogram Screening for malignant neoplasm of breast 222893449 Z12.39 we will arrange due to lack of followthfo ugh Patent foramen ovale 204 955206 Q21.1 seen on echo, started pt on a baby aspirin and cardiology has reviewed with her Paroxysmal atrial fibrillation 972091577 I48.0 2 documented episodes total, one in [...] during the week. Lymphedema of lower extremity 724926798 I89.0 better on meds, continue hctz Obstructiv e sleep apnea syndrome 16964697 G47.33 pt ot see sleep medicine again, should retry cpap Body mass index 40+ - severely obese 841664742 E66.01 Z68.42 pt to lower carbs, hard for her to keep on the healthy eating track. [id number] Juan Diego Cali MD Main Office [address] [facility] [address] [place] [address] 04/07/2019 13:19:55 04/07/2019 14:23:48 Pain in left knee 7324117586 17347 M25.562 ? PFS vs other - will [...] on of care. Gastroesop hageal reflux disease 986159680 K21.9 [id number] Omayra rush MD Main Office [address] [place] [address] 12/31/2019 13:03:19 12/31/2019 14:22:13 Asthma 999306756 J45.909 pt will restart med Urge incon tinence of urine 94763822 N39.41 urology had patient on oxybutynin . will restart Lymphedema of lower extremity 579503057 I89.0 better on meds, will try chlorthali done [id number] Phong Nichole MD [facility] [address] [place] [address] 01/08/2020 15:07:08 01/11/2020 08:39:09 Indigestion 588626087 K30 most likely in response to starting sertraline . Pt tried taking Tums but had no relief. WE will try PPI over the week end and if still having indigestio n discomfort , call after the weekend and be seen in the office to check her EKG. Generalize d anxiety disorder 93293064 F41.1 contineu SSRI as prescribed by psych. MIght be experienci ng symptoms of indigestio n due to SSRI as well. Lymphedema of lower extremity 340377484 I89.0 continue diuretic, but pt. was advised to have labs done not later than after the week end. [id number] Lan Oliver MD [facility] [address] [place] [address] 04/01/2020 07:58:50 04/01/2020 15:09:46 Abdominal pain 33724476 R10.9 She will try simethicon e. There was nothing on her history that warranted immediate attention and she was advised to call the office in the am if it persisted. [id number] Omayra rush MD [facility] [address] [place] [address] 04/22/2020 06:41:45 04/24/2020 10:57:02 [id number] Omayra rush MD Main Office 3640 [facility] [address] [place] [address] 05/30/2020 15:06:28 05/30/2020 16:57:55 Adult health examination 142918421 Z00.00 Pt has concerns about her weight and is under stress with family and work. Social and family history reviewed. Immunizati ons reviewed, advised annual flu shot, will get at [facility] as we do not have any in stock at this time. . 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 declines medication at this time. NO SI or HI, Addiction 27884872 R46.8 1 Pt feels she has a food addiction, recommende d to go to OA or call to see if any virtual meetings. Most of the appt spent talking about food, eating and stress/anx iety related to this. She will reach out to the counselor, suggested some ideas for this. Elevated blood-pressure reading without diagnosis of hypertension 556266215 R03.0 Pt under stress today, tearful, recheck at next ov Mild inter mittent asthma 316778641 J45.20 stable at this time, uses montelukas t Morbid obesity 593616642 E66.01 Pt will look into OA program. Suggested lowering carbs, more protein, no meal skipping and tips to avoid night eating. Advised to try and me more active. Short term followup [id number] Omayra rush MD Main Office [address] [facility] [address] [place] [address] 12/28/2020 10:59:55 12/28/2020 14:58:13 Cervical radiculopathy 16831743 M54.12 Will do a trail of NSAID [...] compress.N willow exercises provided. Urinary incontinence 165 702369 R32 She was on oxybutynin 20 ER, she has a hx of small bowel obstructio n she requested a refill at that dose, given hx of small bowel obstructio n I think it might not be a bad idea for patient to discuss with urology if other options can be explored and she agreed to this. Medial epicondylitis 532 59592 M77.01 Will do trial of NSAID, Patient aware risk of GI bleed as she is also on elaquis. She was told to take with meal. If any signs of bleeding she was asked to stop and let us know. [id number] Omayra rush MD Main Office 3640 [facility] [address] [place] [address] 01/09/2021 15:56:27 01/10/2021 09:57:35 Paroxysmal atrial fibrillation 352669266 I48.0 pt is followed by cardiology , remains on eliquis, flecanide and metoprolol for now. Seems to be in NSR today, no sx. Advised to consider sleep studay repeat and work on wt loss. 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 Discusse OA program Generalize d anxiety disorder 92966657 F41.1 pt agrees to continue with her counselor to discuss issues especially her wt and eating compulsion . declines medication at this time. NO SI or HI, [id number] Omayra rush MD Main Office [address]40 [facility] [address] [place] [address] 01/25/2021 14:49:47 01/25/2021 16:14:43 Cervical radiculitis 54374770 M54.12 trial of short pred taper to decrease inflammati on with radiculopa thy. Side effects reviewed. Cervical radiculopathy 30520193 M54.12 stay on gabapentin , can use bid if not too drowsy, or can use 2 at bedtime Acute thor acic back pain 489962413 M54.6 check xay, do stretches, advised PT, pt will consider Body mass index 40+ - severely obese 346843646 E66.01 Z68.41 pt would like to see tufting machine operator, will do a referral [id number] Omayra rush MD [facility] [address] [facility] [address] [facility] [place] [address] 02/13/2021 08:33:32 02/13/2021 14:20:43 Tendinitis of right elbow 2547930102 9292916 M67.823 continued right elbow pain, sounds like tendonitis , ice and set up appt at [facility] for cortisone injection Pain of le ft shoulder blade 309904149 M25.512 pt with muscular pain around left scapula into neck and shoulder, most likely related to muscular pain form poor posture, left sided pectoralis insertion pain on and off, does not feel like pts cardiac pain and it is positional , no need for cardiac eval. pt to set up PT, use a roller on upper back Pain of le ft shoulder joint 1528810430 5067340 M25.512 related to muscular pain from neck and back [id number] Omayra rush MD Main Office [address] [facility] [address] [place] [address] 06/23/2021 13:56:44 06/23/2021 15:13:56 Adult health examination 270552173 Z00.00 Pt has concerns about her weight and is under stress with family and work but stable at this time. Social and family history reviewed. Immunizati ons reviewed, advised annual flu shot,, will be due for Tdap next year . 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 declines medication at this time. NO SI or HI, Spent time disussing family issues around teen age daughter Paroxysmal atrial fibrillation 586507158 I48.0 pt is followed by cardiology , remains on eliquis, flecanide and metoprolol for now. Seems to be in NSR today, no sx. Advised to consider sleep study repeat and work on wt loss. 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 Suggested lowering carbs, more protein, no meal skipping and tips to avoid night eating. Advised to try and me more active. Screening for malignant neoplasm of breast 718369460 Z12.39 [id number] Omayra rush MD Main Office 3640 [facility] [address] [place] [address] 12/13/2021 07:41:49 12/13/2021 11:53:08 [id number] Omayra rush MD [facility] 3640 [facility] [address] [place] [address] 04/08/2022 15:01:10 04/09/2022 10:56:34 Pain in right arm 937488676 M79.601 had to call into a different pharmacy, first one closed will treat for 2 days since weekend then needs in person appt, could be radicular pain, unable to tell without exam [id number] Juan Diego Cali MD Main Office 3640 [facility] [address] [place] [address] 04/18/2022 14:48:18 04/18/2022 16:00:22 Cervical radiculitis 60642133 M54.12 will get pmr eval, and give trial of gbn -- could consider tyl 500mg 1-2 tabs up to 3x/day as well Paroxysmal atrial fibrillation 964683403 I48.0 encouraged pt to resume eliquis as per card - if too $$, then consider coumadin [id number] Omayra rush MD Main Office [address]40 [facility] [address] [place] [address] 06/20/2022 13:57:16 06/20/2022 15:17:51 Adult health examination 432932761 Z00.00 Pt has concerns about her weight and is under stress with family and work but stable at this time. Social and family history reviewed. Immunizati ons reviewed, advised annual flu shot, due for Tdap, covid booster. She will do appt at the pharmacy. 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 declines medication at this time. NO SI or HI, Spent time discussing family issues Paroxysmal atrial fibrillation 372953677 I48.0 pt is followed by cardiology , remains on eliquis, flecanide and metoprolol for now. Seems to be in NSR today, no sx. Advised to consider sleep study repeat and work on wt loss. 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 Suggested lowering carbs, more protein, no meal skipping and tips to avoid night eating. Advised to try and me more active. Screening for malignant neoplasm of breast 065187574 Z12.39 Body mass index 40+ - severely obese 755474025 Z68.43 pt would like to see tufting machine operator, will do a referral [id number] Juan Diego Cali MD Main Office 3640 [facility] [address] [place] [address] 09/26/2022 15:38:56 09/26/2022 16:43:10 Mild intermittent asthma 332153543 J45.20 rec cont montelukas t as dir, advised pt on how to use flovent x few wks - when feeling better can stop, but cont alb 5-30min ac exercise in future Paroxysmal atrial fibrillation 023503577 I48.0 cont meds, f/u c card as dir Obstructiv e sleep apnea syndrome 32763712 G47.33 seen by sleep med earlier today, will get updated sleep study Dyspnea 820479510 R06.00 negative cardiac w/u - ? d/t asthmatic bronchitis / post viral syndrome vs deconditio ashlee / obesity -- check probnp Impaired f asting glycemia 075064558 R73.01 Fatigue 78776608 R53.83 Pain of le ft hip joint 3693895157 19447 M25.552 check xray - pain x several months - r/o djd - if sig, then get ortho eval [id number] Juan [facility] Cali [facility] 3640 [facility] [address] [place] [address] 12/04/2022 08:29:26 12/04/2022 10:25:23 Cough 63412647 R05.9 rec celine or mucinex, suspect pnd == sinusitis - see below Acute sinusitis 89676180 J01.90 rec cont ns spray prn, consider warm washcloth to side of neck recommend probiotics while on abx Acute conjunctivitis 537 90253 H10.33 she left her contacts in for ~ 48 hours - suspect corneal ulceration - strongly encouraged pt to see her eye md, meanwhile will rx c abx eye ointment [id number] Juan Diego Cali MD [facility] 3640 [facility] [address] [place] [address] 01/08/2023 15:46:57 01/08/2023 16:25:29 Urinary tract infectious disease 88387760 N39.0 pt declines giving urine sample, so will rx empiricall y c cipro cont push fluids, consider cranberry juice, also consider prn pyridium recommend probiotics while on abx Seasonal a llergic rhinitis 169574162 J30.2 rec resume singulair as dir, or consider claritin, cont prn ns spray to help lessen pndrtc next week (needs ov not TH) if cough persists [id number] Juan Diego Cali MD Main Office [address] [address] [place] [address] 04/17/2023 15:26:53 04/17/2023 16:56:58 Lateral epicondylitis of left humerus 0010532780 85795 M77.12 trial c TE support, cool compress prn, wrist splint o/n -- if no better call us - consider ortho for sandoval injxn Skin lesion 57064625 L98 .9 most likely epidermoid cyst - will get derm eval, ? may need to see general surgeon if they cannot remove Pain in both feet 241912 2713 9395090 M79.671 better lately, no evidence / suspicion of fx [id number] Giorgio Machado MD Main Office [address] [address] [place] [address] 04/19/2023 13:10:00 04/19/2023 13:40:50 Abdominal pain 96277964 R10.9 Acute abdomen, refer to emergency department . PT. refused to go by ambulance. Will drive to [facility]. Call ahead placed to [facility]. [id number] MOLLY LAM MD Main Office [address]40 [facility] [address] [place] [address] 04/26/2023 10:09:45 05/10/2023 16:14:02 [id number] ДМИТРИЙ TAYLOR Main Office [address] [place], [place] [address] 07/24/2023 14:43:32 07/24/2023 15:27:47 Cough 73282279 R05.9 -in office RSV, flu, and covid are negative-d iscussed OTC interventi ons to help with a cough Acute sinusitis 06192133 J01.90 -x3 weeks of symptoms of sinus pressure, nasal congestion , cough, post nasal drip, and sore throat-guanakito al decongesta nts provide minimal relief-exp osed to other coworkers with similar symptoms-P E revealed sinus tenderness to the frontal sinus, erythemato us posterior oropharynx and nasal discharge- will start pt on augmentin x10 day course Mild inter mittent asthma 273762942 J45.20 per pt request, refill Health Concerns Section Related Observation LastModified by Organization Detai ls LastModified Time None Recorded Concern Status LastModified by Organization Details LastModified Time None Recorded Advance Directives Directive N: Payers Encounter Date Sequence Insurance Name Policy Number Policy Pollard Covered Member ID Pollard Member ID Guarantor Name 01/08/2023 1 [facility] - DIRECT CONNECTORCARE TYPE I (HMO) [id number] Steph Neal [id number] Steph Artis Ángel 04/17/2023 1 [facility] - DIRECT CONNE[employer]CARE TYPE I (HMO) [id number] Steph Neal [id number] Steph Neal 04/19/2023 1 [facility] - DIRECT CONNE[employer]CARE TYPE I (HMO) [id number] Steph Neal [id number] Steph Neal 04/26/2023 1 [facility] - DIRECT CONNE[employer]CARE TYPE I (HMO) [id number] Steph Neal [id number] 1 Steph Neal 07/24/2023 1 [employer] [facility] - DIRECT CONNECTORCARE TYPE I (HMO) [id number] Steph Neal [id number] Steph Neal Notes Date Note Type Note Provider Name and Address Organization Details Recorded Time 01/08/2023 text/html Patient has been having urinary Pressure and frequency . Patient has noticed spasms after urinating since Saturday. no f/c, hematuria Cabrera Mondragon PA-C [address] [address], [place], [phone], [facility] 01/08/2023 16:19:43 04/17/2023 text/html pt had B foot pa in x few wks, up until recently - now resolvedcurr c/o L elbow painno trauma to feet or LUEdoes sleep c L wrist flexed occ.also c/o lesion on her back - boyfriend is concerned, no pus dc, no f/c Cabrera Mondragon PA-C [address] [address], [place], [phone], [facility] 04/20/2023 13:37:29 04/19/2023 text/html 47 year old fema le c/o acute R. mid to lower abdominal pain started yesterday morning and gradually worsened in severity. Non radiating, no nausea. NO fever, chills. NO prior h/o similar pain, renal calculi. Urine with hemolyzed trace of blood and ketones. Bela Mondragon PA-C [address] [address], [place], [phone], [facility] 04/19/2023 14:39:26 04/26/2023 text/html Hospitalization Contact RecordReported bypatient.Follow UpHospital: [facility]; admit date: (Please enter in format 'MM/DD/YYYY') (04/19/2023); date of discharge: (Please enter in format 'MM/DD/YYYY') (04/23/2023); date of contact: (Please enter in format 'MM/DD/YYYY') (04/26/2023)Notes:[facility] covered inpatient stay? noTOC with in 48 working hours? yes HCP on file? yesMOLST on file? noDischarge Summary available? yes Pt presented to [facility] on 04/19/23 due to 2.5 days [...] hrs prn pain (30 tabs). ANJU Sewell, [facility] 05/10/2023 16:14:01 07/24/2023 text/html Sinusitis/Allerg yRepor power bypatient.Location:[facility]; [facility] Associated Symptoms:no fever; no nausea or [...] sob, or chest pain. 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 Requests RSV + flu testing. Home covid test is negative. Lan Oliver MD [address] [address], [place], [phone], [facility] 07/30/2023 09:10:02 OBGyn Episode No OBEpisode recorded.
--- OUTSIDE RECORDS SUMMARY | 2024-12-31 15:20 | XMS_ITS | Data Portability ---
Author Organization [place] - [facility], Allergy Address [address] [place] [phone] Assessment Encounter Date Assessment Date Assessment LastModified [...] Recorded Time Impacted cerumen in right ear [id number] 95584 Active 2016 Impacted cerumen, right ear; Note: Date Diagnosed : 10/31/2016 4:26 PM (H61.21) Not Available [facility] 4 02:25:57 Acute tonsillit is 61722956 Active 2016 Acute tonsillit is, unspecifi ed; Note: Date Diagnosed : 10/31/2016 4:28 PM (J03.90) Not Available [facility] 4 02:26:11 Otalgia of right ear 7730688625 Active 2016 Otalgia, right ear; Note: Date Diagnosed : 10/31/2016 4:26 PM (H92.01) Not Available [facility] 4 02:25:51 Snoring 33510603 Active 2023 MINNIE CHRIS MD [address] [place] [address], [place], [phone] , [facility] - [facility] 4 15:20:59 Problem Notes None recorded. Procedures Surgical History Date Name Laterality Status Provider Name and Address Organization Details Recorded Time Appendectomy completed Mandi Sullivan - [facility] 04/17/2024 14:56:12 Imaging Results Imaging Date Name Status LastModified by [facility] Details LastModified Time 10/31/2023 sleep study, diagnostic (PROC) completed [email or web address] Information not available 04/17/2024 15:15:49 Procedure Notes None recorded. Medical Equipment None Reported. Allergies Allergen ID Allergen Name Allergen Category Reaction Reaction Severity Criticality Documentation Date Start Date Code Code System Note Provider Name and Address Organization Details Recorded Time 31762 clindamyc in hydrochlo ride medicatio n other Not available Not available 01/07/2024 98677 RxNorm React ion: unkno wn, unspe cifie d;; Not Available [facility] 4 00:55:38 Medications Name Sig Start Date Stop Date Status Note LastModified by Organization Details LastModified Time acetamino phen 325 mg tablet TAKE 2 TABLETS BY MOUTH EVERY 4 HOURS NEEDED FOR PAIN active Not Available Not Available No t Available clindamyc in HCl 300 mg capsule 11/01 completed Medicati on ID: [id number] D uration Value: 14 Brand Name: clindamy [...] Updated DateTime 04/17/2024 172.72 cm 50.9 kg/m2 219057.44 g Mandi Castro [place] - [facility] 04/17/2024 15:03:16 Social History Question Answer Notes LastModified by Organizat ion Details LastModified Time Tobacco Smoking Status Former Smoker Mandi deluna [place] - [facility] 04/17/2024 14:57:07 What Is Your Level Of Alcohol Consumption? Occasional [email or web address] Information not available 04/17/2024 Sex: Unknown Functional [...] SNOMED-CT Code Diagnosis ICD10 Code Diagnosis Note [id number] MINNIE CHRIS MD [facility] [address] [phone] 04/17/2024 14:13:00 04/17/2024 15:22:11 Snoring 20599650 R06.83 Health Concerns Section Related Observation LastModified by Organization Detai ls LastModified Time None Recorded Concern Status LastModified by Organization Details LastModified Time None Recorded Advance Directives Directive None Recorded Payers Insurance Date Sequence Insurance Name Policy Number Policy Pollard Covered Member ID Pollard Member ID Guarantor Name 04/17/2024 1 [facility] (PPO) [id number] Steph Neal [id number] Steph Neal 04/17/2024 1 [facility] (HMO) [id number] Steph Neal [id number] 1 Steph Neal 04/17/2024 1 [facility] (PPO) [id number] Steph Wisdom Ángel [id number] 1 Steph Neal 04/17/2024 1 [facility] [id number] Steph Neal [id number] 1 Steph Wisdom Ángel Notes Date Note Type Note Provider Name and Address Organization Details Recorded Time 04/17/2024 text/html weight loss program [id number]/1/23 [facility] Luzma Bourne 46AHI 2.7 just started wegovy +snoringno hx of tonsil infections MINNIE CHRIS MD [address] [place] [address], [phone] [place] - [facility] 04/17/2024 15:22:03 OBGyn Episode No OBEpisode recorded.
== END 2024-12-31 15:04 | disposition home or self-care (01) ==
LOC: HO.HOS 14:38
PROVIDERS: Visit Provider Orthopaedic Surgery
DX: M17.11 Unilateral primary osteoarthritis, right knee (principal); M23.306 Other meniscus derangements, unspecified meniscus, right knee
CPT/HCPCS: 99024

== ENCOUNTER → 2024-12-31 14:36 | Outpatient (BNVA) | payer OTHER, SELFPAY | PROVIDERS: Visit Provider Orthopaedic Surgery | DX: M17.11 Unilateral primary osteoarthritis, right knee (principal); Z47.89 Encounter for other orthopedic aftercare; Z98.890 Other specified postprocedural states | CPT/HCPCS: 99212 ==

== ENCOUNTER → 2025-01-15 15:33 | Outpatient (BNVA) | payer OTHER, SELFPAY | PROVIDERS: Visit Provider Physician Assistant Surgical ==

== ENCOUNTER 2025-03-09 15:26 | Outpatient (AMB) | payer OTHER, SELFPAY ==
--- NOTE | 2025-03-09 15:40 | A.OFFPC_ITS ---
Vital Signs 03/09/25 15:42 Height 5 ft 8 in Weight 334 lb 6 oz BMI 50.8 BP 126/70 Blood Pressure Location Lt brachial Position Sitting Oxygen Delivery Method Room Air Intake Visit Reasons: f/u obesity Bill Recapitulation Clerk Required: No Accompanied by: Self / Same As Patient Allergies No Known Allergies (No Known Allergies*) Allergy (Verified 03/09/25 16:01) Medication List - Last Reconciled 03/09/25 by Caitlin Sousa PA-C acetaminophen (Tylenol) 650 mg (2 x 325 mg) PO Q4H PRN albuterol-budesonide 90-80 mcg/actuation 2 inhalations inhalation DAILY PRN apixaban (Eliquis) 5 mg PO BID benzonatate 100 mg PO BID PRN flecainide 50 mg PO BID furosemide (Lasix) 20 mg PO DAILY PRN levonorgestrel (Mirena) intrauterine metoprolol succinate ER 25 mg PO DAILY oxycodone-acetaminophen 5-325 mg 1 tab PO Q8H PRN 7 days Tobacco use date assessed: 03/09/25 Dental Screening Dental Screen Date: 03/09/25 Did you have a dental visit in the last 12 months?: No Did you have a dental problem in the last 6 months where you did not have access to dental care?: No Was dental information given to patient?: No HPI f/u obesity HPI Details 49-year-old female with past medical his tory of atrial fibrillation, asthma, morbid obesity, obstructive sleep apnea, depression last seen 11/2024 coming in for follow up. Presenting with weight management concerns. She has struggled with weight loss despite previous efforts and medication, feeling frustrated with the lack of progress and support from her insurance company. The patient has a history of knee pain, which worsened after surgery, impacting her ability to exercise and contributing to her weight management challenges. She also experiences back pain, which is aggravated by physical activity, further limiting her exercise capacity. Additionally, she reports experiencing dizziness, which occurs randomly and is not linked to specific activities. [facility] Medical History Sleep apnea, obstructive Asthma Atrial fibrillation Surgical History History of knee surgery History of appendectomy Family History Other Adopted Social History Household Members: Family Housing: Apartment Do you presently have visiting nurse or other home services: No Alcohol intake: current Alcohol intake frequency: holidays/special occasions only Comment: Socially Patient Tobacco Use Status: Former Tobacco user Cigarette Packs Per Day: 0.5 Years Smoked: 15 +/- e-Cigarette/Vaping Use: Never Used Second Hand Smoke Exposure: Yes service: No Current occupational status: employed 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 1. Little interest or pleasure in doing things: not at all 2. Feeling down, depressed, or hopeless: not at all 3. Trouble falling or staying asleep, or sleeping too much: not at all 4. Feeling tired or having little energy: not at all 5. Poor appetite or overeating: not at all 6. Feeling bad about yourself - or that you are a failure or have let yourself or your family down: not at all 7. Trouble concentrating on things, such as reading the newspaper or watching television: not at all 8. Moving or speaking so slowly that other people could have noticed. Or the opposite - being so fidgety or restless that you have been moving around a lot more than usual: not at all 9. Thoughts that you would be better off or of hurting yourself in some way: not at all Total score: 0 46824 - PHQ-9 Billing: Yes Source: Developed by Drs. Ángel Faria, Estrella Jason, Carlos Manuel Henderson and colleagues, with an educational gabby from [employer]. Thrive Questionnaire Date Thrive assessed: 03/09/25 I am a: Patient What is your living situation today?: I have a steady place to live Within the past 12 months, did the food you bought not last and you didn't have the money to get more?: I choose not to answer this question Within the past 12 months, did you worry whether your food would run out before you got money to buy more?: I choose not to answer this question Do you have trouble paying for medicines?: I choose not to answer this question Do you have trouble getting transportation to medical appointments?: I choose not to answer this question Do you have trouble paying your heating and electricity bill?: I choose not to answer this question Do you have trouble taking care of your child, family member or friend?: I choose not to answer this question Do you have trouble with day-to-day activities such as bathing, preparing meals, shopping, managing finances, etc.?: I choose not to answer this question Are you currently unemployed and looking for a job?: I choose not to answer this question Are you interested in more education?: I choose not to answer this question Please select the resources that you would like help with: None Currently or been in a relationship where the following occur: I choose not to answer THRIVE Score: 0 AUDIT C Alcohol Use Questionnaire (AUDIT-C) 1. How often do you have a drink containing alcohol?: Monthly or less 2. How many drinks containing alcohol do you have on a typical day when you are drinking?: 1 or 2 3. How often do you have six or more drinks on one occasion?: Never Total Score: 1 ILDA-7 AMB Questionnaire ILDA-7 Date ILDA - 7 assessed: 03/09/25 Source: Developed by Drs. Ángel Faria, Estrella Jason, aCrlos Manuel Henderson and colleagues, with an educational gabby from [employer]. Review of Systems Const Denies body aches, Denies chills, Denies fever(s), Denies headache(s) and Denies poor appetite Eyes Reports no additional complaints ENT Denies dysphagia, Denies dizziness, Denies headache(s) and Denies odynophagia Card Denies chest pain, Denies syncope, Denies edema, Denies irregular heart rhythm, Denies lightheadedness and Denies dyspnea Resp Denies cough and Denies dyspnea GI Denies abdominal pain, Denies constipation, Denies dysphagia, Denies diarrhea, Denies nausea, Denies odynophagia and Denies vomiting Reports no additional complaints Musc Reports no additional complaints and Denies abnormal gait Skin/Breast Reports system reviewed and no additional complaints, except as documented Neuro Denies abnormal gait, Denies dizziness, Denies syncope and Denies headache(s) Psych Reports no additional complaints Physical exam (Primary Care) Vital Signs: Last Vital Signs BP 126/70 03/09/25 15:42 Oxygen Delivery Method Room Air 03/09/25 15:42 BMI result Body Mass Index 50.8 Tobacco/Smoking Status: Tobacco use Status Tobacco use date assessed 03/09/25 03/09/25 15:43 Patient Tobacco Use Status Former Tobacco user 03/09/25 15:43 e-Cigarette/Vaping Use Never Used 03/09/25 15:43 PHQ-9: PHQ-9 Score PHQ-9: Total score 0 03/09/25 16:34 Thrive Assessment: Date of Thrive Assessment Date Thrive assessed 03/09/25 03/09/25 15:43 Currently or been in a relationship where the following occur: I choose not to answer Const General: cooperative, healthy appearing, comfortable and no acute distress Orientation/consciousness: patient oriented x3 HENMT Head: Yes normocephalic Ears: hearing grossly normal bilaterally General nose exam: Normal external nose present Eyes General: appearance normal, both eyes and all related structures Conjunctivae: conjunctivae normal Neck Neck: Yes full ROM and Yes no lymphadenopathy Resp Effort & Inspection: normal respiratory effort Auscultation: clear to auscultation bilaterally, no crackles, no rales, no rhonchi and no wheezes Cardio Rate: regular rate Rhythm: regular rhythm Skin General skin exam: no rashes or lesions noted Neuro General: patient oriented x3 Gait exam (Neuro): Normal gait present Extrem General: Yes normal to inspection, Yes full ROM and No edema Psych Affect: normal affect Attitude: cooperative Insight: Good insight present (Psych) Judgement: Good judgement present (Psych) Coding Level of Care Code Est Pt Level 4 (86595) Diagnoses Morbid obesity E66.01 Atrial fibrillation I48.0 Atrial fibrillation type: paroxysmal Hypercholesterolemia E78.00 Low back pain M54.50 Additional Codes PHQ-9 - 39594 - PHQ-9 Billing: Yes ([id number]) Assessment & Plan Assessment & Plan (1) Morbid obesity: Code(s): E66.01 - Morbid (severe) obesity due to excess calories Category: Medical Plan: The management plan involves appealing the denial for Wegovy and examining alternative pathways through cardiology that could support her case. Regarding patient's progress while on the Wegovy medication her weight is as follows: 04/15/2024: 335 lb 05/28/2024: 334 lb 07/22/2024: 328 lb 08/11/2024: 321 lb Patient lost 14 lb in the process of 4 months before she was cut off from the injection from insurance in August of 2024. She did not achieve 5% of her body weight loss (16.75) however she was not given the 6 months to do so before insurance coverage was removed. After injection was declined by insurance she suffered an injury in which made it difficult for patient to continue with her weight loss efforts. We have discussed back and forth with prior authorization through the insurance which has been denied due to lack of documentation. All documentation supports the continuation of the medication given the patient's progressive weight loss and collective weight loss of 14 lb in 4 months. We will plan to resubmit prior authorization including my note for documentation in effort to get the medication covered for this patient. (2) Atrial fibrillation: Comment: Code(s): I48.91 - Unspecified atrial fibrillation Category: Medical Qualifiers: Atrial fibrillation type: paroxysmal Qualified Code(s): I48.0 - Paroxysmal atrial fibrillation Plan: Continue to follow with cardiology and continue on current medication regimen. (3) Hypercholesterolemia: Code(s): E78.00 - Pure hypercholesterolemia, unspecified Category: Medical Plan: Avoid foods that are high in cholesterol such as red meat, fried foods, eggs and baked goods. Triglyceride goal of less than 150 and LDL goal of less than 130. Ordered for repeat blood work. (4) Low back pain: Code(s): M54.50 - Low back pain, unspecified Category: Medical Plan: Recommend referral to physical therapy as it is most likely muscular in nature. At patient request I did place the orders for the lumbar spine x-ray as well. Plan The plan includes addressing the patient's weight management concerns by documenting her weight loss progress and resubmitting this information to the insurance company to potentially reinstate coverage for weight management medication. For her knee and back pain, an x-ray has been ordered to evaluate the underlying causes, and physical therapy is recommended to improve her condition. The patient is advised to perform gentle stretching exercises and consider using insoles for additional support during physical activities. Regarding her dizziness, blood work has been ordered to investigate potential causes, and she is encouraged to maintain adequate hydration and nutrition. This note was constructed using voice recognition software. While every effort has been made to ensure accuracy and bell captain, still areas may have been included sometimes these areas may affect the content or meeting of the given symptoms. Total time spent caring for the patient today was 20 minutes. This includes time spent before the visit reviewing the chart, time spent during the visit, and time spent after the visit and documentation. Patient was informed and verbally consented to the use of an ambient scribe for clinic note documentation during this visit. Orders: Orders Lipid Panel Today E78.00 - Pure hypercholesterolemia, unspecified XR lumbar spine 2-3V Today M54.50 - Low back pain, unspecified Comprehensive Met. Panel Today E66.01 - Morbid (severe) obesity due to excess calories, Z00.00 - Encounter for general adult medical examination without abnormal findings Vitamin D 25-OH Total Today E66.01 - Morbid (severe) obesity due to excess calories, Z00.00 - Encounter for general adult medical examination without abnormal findings Complete Blood Count Auto Diff Today E66.01 - Morbid (severe) obesity due to excess calories, Z00.00 - Encounter for general adult medical examination without abnormal findings Vitamin B12 and Folate Today E66.01 - Morbid (severe) obesity due to excess calories, Z13.21 - Encounter for screening for nutritional disorder TSH reflex Free T4 Today E66.01 - Morbid (severe) obesity due to excess calories, Z00.00 - Encounter for general adult medical examination without abnormal findings PT Evaluation and Treatment Today M54.50 - Low back pain, unspecified
[2025-03-09 15:42] VITALS: BP 126/70; BMI 50.8
--- OUTSIDE RECORDS SUMMARY | 2025-03-09 16:30 | XMS_ITS | Data Portability ---
Author Organization [facility], Main Office Address [address] [place] [address] Care Team Providers Care Lapel Padder Name Role Phone MINNIE CHRIS Meat Service Team Member [facility] Marble Installation Helper HODA RAHMAN Orthopedic Surgeon [facility] Urologist JESS DELA CRUZ Leak Hunter MOLLY LAM Primary Care Provider Assessment Encounter Date Assessment Date Assessment LastModified by Organization Details LastModified Time 01/08/2023 01/08/2023 This service was provided using telemedicine. Patient consented to video & audio visit Patient was located in the [facility]. Provider was located in the office. No other persons participated in the telemedicine visit except for the patient unless otherwise indicated here. Total time of visit was 12 minutes. [...] DO Not Attach Compendium, Do Not Delete/merge, [id number] 3 15:18:01 rapid flu (A+B) 2022 023 CARMELO In-Office Order, Internal Use Only DO Not Attach Compendium DO Not Attach Compendium, Do Not Delete/merge, [id number] 3 15:28:10 rsv (respi ratory syncyt ial virus) , rapidsoniya al 2022 023 CARMELO In-Office Order, Internal Use Only DO Not Attach Compendium DO Not Attach Compendium, Do Not Delete/merge, [id number] 3 15:44:39 urinal ysis, dipsti ck 2022 023 [email or web address] In-Office Order, Internal Use Only DO Not Attach Compendium DO Not Attach Compendium, Do Not Delete/merge, [id number] 3 14:39:10 Referral dermat ologis t referr al 2022 023 [facility], [address], [address], [place], [address], 4 10:36:34 Procedures None record ed. Surgeries None record ed. Imaging None record ed. Medication Orders Flexmen tin 875 mg-125 mg tablet 2022 023 [id number], [address] [place], [id number], 3 15:18:13 benzon atate 100 mg capsul e 2022 023 [facility][id number], [address] [place], [id number], 3 15:18:16 albute rol sulfat e HFA 90 mcg/ac tuatio n aeroso l inhale r 2022 023 [facility][id number], [address] [place], [id number], 15:18:13 ciprof loxaci n 250 mg tablet [facility]22 [id number] [address], [place], [place], [id number], 15:55:22 Patient TargetsNo targets recorded. Patient Instructions Encounter Date Encounter Id Patient Instructions Last Modified By Organization Details Last Modified Time 01/08/2023 [id number] Follow up if no improvement or if symptoms worsen. [email or web address] Not available 01/08/2023 16:19:02 04/17/2023 [id number] tennis elbow: care instructions pmadden Not available 04/17/2023 16:48:46 tennis elbow: exercises pmadden Not available 04/17/2023 16:48:47 Follow up if no improvement or if symptoms worsen. pmadden Not available 04/17/2023 16:53:08 04/26/2023 [id number] 05/07/23- message left at home number to return my call, offer a hospital follow up as well as Pt is also due for a physical. Lena [email or web address] Not available 05/07/2023 08:58:32 07/24/2023 [id number] Acute Sinusitis: Care Instructions Not available 07/24/2023 15:18:07 cough: care instructions Not available 07/24/2023 15:18:07 Reason for Referral Panc[employer] Professional Referral for S kin lesion Referring Physician: Cabrera Mondragon, Internal Medicine, Encounter Date: 04/17/2023 Results Created Date Observation Date Name Description Value Unit Range Abnormal Flag Note LastModifiedBy Organization Detail LastModifiedTime 04/19/2004/19/2023 urina lysis , dipst ick Leukocytes Negati ve Not Available In-Office Order Internal Use Only DO Not Attach Compendium DO Not Attach Compendium, Do Not Delete/merge, [id number] 04/19/2023 13:29:11 04/19/2004/19/2023 urina lysis , dipst ick Nitritie negati ve Not Available In-Office Order Internal Use Only DO Not Attach Compendium DO Not Attach Compendium, Do Not Delete/merge, [facility] 04/19/2023 13:29:11 04/19/20 23 04/19/2023 urina lysis , dipst ick Urobilinogen .2 Not Available In-Of fice Order Internal Use Only DO Not Attach Compendium DO Not Attach Compendium, Do Not Delete/merge, [facility] 04/19/2023 13:29:11 04/19/20 23 04/19/2023 urina lysis , dipst ick Protein Negati ve Not Available In-Office Order Internal Use Only DO Not Attach Compendium DO Not Attach Compendium, Do Not Delete/merge, [facility] 04/19/2023 13:29:11 04/19/20 23 04/19/2023 urina lysis , dipst ick pH 6.0 Not Available In-Office Order Internal Use Only DO Not Attach Compendium DO Not Attach Compendium, Do Not Delete/merge, [facility] 04/19/2023 13:29:11 04/19/20 23 04/19/2023 urina lysis , dipst ick Blood Hemoly zed: Trace Not Available In-Office Order Internal Use Only DO Not Attach Compendium DO Not Attach Compendium, Do Not Delete/merge, [facility] 04/19/2023 13:29:11 04/19/20 23 04/19/2023 urina lysis , dipst ick Specific Everson 1.005 Not Available In-Off ice Order Internal Use Only DO Not Attach Compendium DO Not Attach Compendium, Do Not Delete/merge, [facility] 04/19/2023 13:29:11 04/19/20 23 04/19/2023 urina lysis , dipst ick Ketone Trace Not Available In-Office Order Internal Use Only DO Not Attach Compendium DO Not Attach Compendium, Do Not Delete/merge, [facility] 04/19/2023 13:29:11 04/19/20 23 04/19/2023 urina lysis [...] Attach Compendium, Do Not Delete/merge, 04/19/2023 13:29:11 07/24/20 23 07/24/2023 rsv (resp irato ry syncy tial virus ), rapid , nasop haryn geal RSV, RAPID negati ve Not Available In-Office Order Internal Use Only DO Not Attach Compendium DO Not Attach Compendium, Do Not Delete/merge, 07/24/2023 15:19:04 07/24/2007/24/2023 rapid flu (A+B) Flu A negati ve Not Available In-Office Order Internal Use Only DO Not Attach Compendium DO Not Attach Compendium, Do Not Delete/merge, 07/24/2023 14:52:40 07/24/20 23 07/24/2023 rapid flu (A+B) Flu B negati ve Not Available In-Office Order Internal Use Only DO Not Attach Compendium DO Not Attach Compendium, Do Not Delete/merge, 07/24/2023 14:52:40 07/24/2007/24/2023 rapid SARS CoV 2 Ag, QL IA, respi rator y speci men RAPID SARS COV 2 negati ve Not Available In-Office Order Internal Use Only DO Not Attach Compendium DO Not Attach Compendium, Do Not Delete/merge, 07/24/2023 14:52:37 05/21/2005/21/2023 upper endos copy proce dure (EGD) (PROC ) No observ ation record ed. [email or web address] [facility] (Medical Records) [address] [place], [address], 05/21/2023 11:11:15 05/22/20 23 05/21/2023 US, abdom en, compl ete No observ ation record ed. [email or web address] [facility] (Medical Records) [address] [place], [address], 05/22/2023 12:50:47 Result Notes None recorded. Problems Name Problem SNOMED Code Status Onset Date Resolution Date Notes Provider Name and Address Organization Details Recorded Time Inflamma tory disorder of extremit y 704247765 Completed 201103/09/2014 IMPRESSI ON: REVIEWED XRAY WITH ALPHONSE JOHNSON EXAM CONSISTE NT WITH ACHILLES TENDONIT IS, AND SWELLING NO MASS FELT; RECORDED 03/25/20 12 9:59AM BY DUNIA SILVER MA, ANNOTATI ON/SAMINA Mondragon PA-C [address], [place], [address], [facility] 6 12:28:32 Acute bronchit is [id number] Completed 201103/09/2014 RECORDED 03/25/20 12 9:59AM BY DUNIA SILVER MA, ANNOTATI ON/ADDEN ABKARI Mondragon PA-C [address], [place], [address], [facility] 6 12:28:31 Acute pharyngi tis [id number] Completed 201203/09/2014 IMPRESSI ON: + RAPID STREP, POSSIBLE RIGHT EARLY PERITONS ILLAR ABSCESS, TX WITH ABX/FLUI DS/NSAID S, IF WORSENIN G PAIN OR DIFFICUL TY SWALLOWI NG CALL OFFICE FOR ENT APPT.; RECORDED 12/16/19 13 10:04AM BY BARBARA ARTIS ON/ADDEN LUIS FERNANDO Jimenez, [facility] 6 15:19:04 Tobacco user [id number] Completed 201305/29/2014 RECORDED 01/17/20 14 10:42AM BY OMAYRA Saleem MD, OFFICE VISIT Bela Mondragon PA-C [address], [place], [address], [facility] 6 12:28:31 Patient status finding [id number] Completed 06/29/2016 LUIS FERNANDO Adams, [facility] 6 15:18:43 Backache [id number] Completed 06/29/2016 LUIS FERNANDO Adams, [facility] 6 15:18:46 Urinary incontin ence 503579578 Active eBla Mondragon PA-C [address], [place], [address], [facility] 6 12:28:32 Cough [id number] Completed 201103/09/2014 RECORDED 03/25/20 12 9:58AM BY DUNIA SILVER MA, ANNOTATI ON/ADDEN DUM LUIS FERNANDO Adams, [facility] 6 15:19:12 Degenera tion of interver tebral disc 00978256 Completed 201103/09/2014 RECORDED 03/25/20 12 9:59AM BY DUNIA SILVER MA, ANNOTATI ON/ADDEN DUM Bela CHOE-C [address], [place], [address], [facility] 6 12:28:32 Dizzines s and giddines s 338622254 Completed 201203/09/2014 IMPRESSI ON: NORMAL EXAM; RECORDED 09/01/19 13 1:16PM BY CHERIE HERRERA MA, ANNOTATI ON/ADDEN DUM Bela CHOE-C [address], [facility] [place], [address], [facility] 6 12:28:32 Edema 852886903 Completed 201103/09/2014 IMPRESSI ON: BILATERA L, LUNGS CLEAR, C/W DEPENDEN T EDEMA, HAS TAKEN HCTZ IN THE PAST WITH [facility] ENT, ALSO REVIEWED DIET/LEG ELEVATIO N/WEIGHT LOSS/COM PRESSION STOCKING S; RECORDED 06/12/20 12 9:04AM BY BARBARA ARTIS ON/ADDEN DUM Brenda green [place] null, [facility] 6 15:18:56 Elevated blood-pr essure reading without diagnosi s of hyperten yue 559883756 Active Bela Mondragon PA-C [address], [place], [address], [facility] 6 12:28:32 Adult health examinat ion Completed 201103/09/2014 IMPRESSI ON: PAP IS UTD, PT TO START EXERCISI NG; RECORDED 07/08/20 12 1:24PM BY BARBARA GUIDRY ON/ADDEN DUM Bela Mondragon PA-C [address], [place], [address], [facility] 6 12:28:32 Pure hypercho lesterol emia 064543198 Completed 01/25/2017 Omayra garrett null, [facility] 7 14:59:23 Knee pain Completed 201203/09/2014 IMPRESSI ON: PT IN A MOMIN TO LEAVE SO DID NOT EXAMINE KNEES. WILL START WITH X-RAY SINCE MAY HAVE DJD. F/U WITH PCP FOR FURTHER ASSESSME NT. 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 SO IT COULD BE THIS.; RECORDED 05/09/20 13 10:00AM BY BARBARA GUIDRY ON/ADDEN DUM Omayra deluna, [facility] 9 15:55:45 Lipoma of skin and subcutan eous tissue (excludi ng face) [id number] Completed 201103/09/2014 IMPRESSI ON: BACK; RECORDED 06/12/20 12 9:04AM BY BARBARA ARTIS ON/ADDEN DUM Bela Mondragon PA-C [address], [place], [address], [facility] 6 12:28:31 Low back pain 758223539 Completed 201203/09/2014 RECORDED 09/05/19 13 10:23AM BY CHERIE HERRERA MA, BARBARA ON/ADDEN DUM Bela [employer] [address], [place], [address], [facility] 6 12:28:32 Lumbar sprain 382825201 Completed 200903/09/2014 RECORDED 11/12/19 10 9:28AM BY BARBARA SWEENEY ON/ADDEN DUM Bela [employer] [address], [place], [address], [facility] 6 12:28:32 Recurren t major depressi ve episodes 699034104 Active Bela [employer] [address], [place], [address], [facility] 6 12:28:31 Malaise and fatigue 425423461 Completed 200903/09/2014 IMPRESSI ON: LONG TALK RE WEIGHT, ADDICTIV E EATING BEHAVIOR S, WILL OCNTINUE COUNSELI NG AND TRY TO INCREASE EXERCISE . SEES DR MORALES TOO. DOES NOT FEEL SHE NEEDS MEDS FOR DEPRESSI ON, FEELS WELL MOSTLY.; RECORDED 11/12/19 10 9:28AM BY BARBARA SWEENEY ON/ADDEN DUM Bela [employer] [address], [place], [address], [facility] 6 12:28:32 Administ ration of measles and mumps and rubella vaccine Completed 201103/09/2014 RESOLVED DATE: 06/13/20 12; IMPRESSI ON: NEG MUMPS TITER, NEEDS REVACCIN ATION; RECORDED 06/13/20 12 12:55PM BY OMAYRA Saleem MD, OFFICE VISIT Bela CHOE-C [address], [place], [address], [facility] 6 12:28:32 Nausea [id number] Completed 201103/09/2014 IMPRESSI ON: RULE OUT PREGNANC Y; RECORDED 07/08/20 12 1:24PM BY BARBARA GUIDRY ON/ADDEN DUM Bela CHOE-C [address], [place], [address], [facility] 6 12:28:32 Neck pain 80006397 Completed 01/25/2017 Omayra garrett [facility] 7 14:59:05 Lymphedeunice nevarez 312031788 Completed 201103/09/2014 RECORDED 03/25/20 12 9:59AM BY DUNIA SILVER MA, CHINTANATI ON/ADDEN DUM Bela CHOE-C [address], [place], [address], [facility] 6 12:28:31 Obesity 788743469 Completed 01/08/2020 Bela CHOE-C [address], [place], [address], [facility] 0 17:12:44 Osteoart hritis of knee 671327821 Active Bela CHOE-C [address], [place], [address], [facility] 6 12:28:32 Otalgia 08426556 Completed 201103/09/2014 RECORDED 03/25/20 12 9:59AM BY DUNIA SILVER MA, BARBARA ON/ADDEN DUM Bela [employer] [address], [place], [address], [facility] 6 12:28:31 Synoviti s/tenosy novitis - hand 209953940 Completed 200903/09/2014 IMPRESSI ON: POSSIBLE CARPAL TUNNEL SYNDROME ; RECORDED 11/12/19 10 9:28AM BY BARBARA SWEENEY ON/ADDEN DUM Bela [employer] [address], [place], [address], [facility] 6 12:28:32 Joint pain in ankle and foot Completed 200903/09/2014 IMPRESSI ON: FXT FIBULA AND OTHER IN 01/01, STILL WITH AIN EXPECTED , TX WITH ULTRAM SINCE NO CONTRAIN DICATION S AND USE MOTRIN 800MG TID WITH FOOD; RECORDED 11/12/19 10 9:27AM BY BARBARA SWEENEY ON/ADDEN DUM Bela [employer] [address], [place], [address], [facility] 6 12:28:32 Pain in thoracic spine 453397369 Completed 200903/09/2014 IMPRESSI ON: MUSCULAR , STRETCH; RECORDED 11/12/19 10 9:27AM BY BARBARA SWEENEY ON/ADDEN DUM Bela twago - [employer] PA-C [address], [place], [address], [facility] 6 12:28:32 Skin sensatio n disturba coe 47916374 Completed 201103/09/2014 IMPRESSI ON: AT SITE OF PREVIOUS CONTUSIO N FROM ABOUT A MONTH AGO, WITHOUT PAIN OR WITHOUT SIGNS OF CELLULIT IS, FOR NOW WILL MONITOR; RECORDED 06/12/20 12 9:03AM BY BARBARA ARTIS ON/ADDEN DUM Bela Mondragon PA-C [address], [place], [address], [facility] 6 12:28:32 Immuniza tion refused Completed 201203/09/2014 RECORDED 05/09/20 13 10:00AM BY BARBARA GUIDRY ON/ADDEN DUM Bela Mondragon [place] [address], [place], [address], [facility] 6 12:28:32 Plantar fascial fibromat osis 74775994 Completed 201103/09/2014 RECORDED 06/12/20 12 9:04AM BY BARBARA ARTIS ON/ADDEN DUM Bela Mondragon [place]-[facility] [address], [place], [address], [facility] 6 12:28:32 Pyelonep hritis 48813296 Completed 201103/09/2014 IMPRESSI ON: SEE ABOVE, PT TO FINISH BACTRIM TO ER IF CANNOT TOLERATE PO WITH VOMITING OR FEELS DIZZY.., PT WILL CALL AND CHECK WITH FACULTY MEMBER TOMORROW ABOUT MAKING SURE SENSITIV ITIES MATCH BACTRIM, FLUIDS REST; RECORDED 03/25/20 12 9:59AM BY DUNIA SILVER MA, BARBARA ON/ADDEN DUM Bela Mondragon [place]-C [address], [place], [address], [facility] 6 12:28:31 Hypertro phic conditio n of skin 67118798 Completed 201203/09/2014 IMPRESSI ON: AFTER WEIGHT LOSS. GETS INTERTRI GO FUNGAL INFECTIO NS DUE TO THIS; RECORDED 05/09/20 13 10:00AM BY BARBARA GUIDRY ON/ADDEN DUM Bela Mondragon PA-C [address], [place], [address], [facility] 6 12:28:32 Influenz a vaccine needed [id number] 06 Completed 201103/09/2014 RECORDED 06/12/20 12 9:13AM BY GRISELDA SILVEIRA, OFFICE VISIT Bela Mondragon PA-C [address], [place], [address], [facility] 6 12:28:32 Pain in limb 14732959 Completed 201103/09/2014 IMPRESSI ON: PT TO SET UP APPT; RECORDED 03/25/20 12 9:59AM BY DUNIA SILVER MA, ANNOTATI ON/ADDEN DUM Bela Mondragon PA-C [address], [place], [address], [facility] 6 12:28:32 Inflamma tion of sacroili ac joint 91726507 Completed 201103/09/2014 IMPRESSI ON: RIGHT SIDED PAIN, CHANGE TO IBUPROFE N WITH FOOD AND TYLENOL WITH CODEINE AT NIGHT. PE 05/[address] UP PT HAS PAPERWOR K; RECORDED 07/08/20 12 1:24PM BY JULEE NESBITT I, BARBARA ON/ADDEN DUM Bela Mondragon PA-C [address], [place], [address], [facility] 6 12:28:32 Morbid obesity 028822834 Active Bela Mondragon PA-C [address], [place], [address], [facility] 6 12:28:31 Shoulder joint pain 964725794 Completed 201103/09/2014 IMPRESSI ON: SOUNDS LIKE BURSISIT PT TO SEE ALANNA Chavez [facility] FOR INJECTIO N; RECORDED 03/25/20 12 9:59AM BY DUNIA SILVER MA, ANNOTATI ON/ADDEN DUM Bela MOCKC [address], [place], [address], [facility] 6 12:28:32 Chronic sinusiti s 70743230 Completed 201103/09/2014 RECORDED 03/25/20 12 9:59AM BY DUNIA SILVER MA, ANNOTATI ON/ADDEN DUM Bela Mondragon PA-C [address], [place], [address], [facility] 6 12:28:31 Administ ration of diphther ia and tetanus vaccine Completed 201103/09/2014 RECORDED 07/08/20 12 1:24PM BY JULEE NESBITT I, CHINTANATI ON/ADDEN DUM Bela Mondragon PA-C [address], [place], [address], [facility] 6 12:28:32 Urinary tract infectio us disease 49370676 Completed 200803/09/2014 RECORDED 12/07/19 09 8:54AM BY BRENDA STEINER MA, BARBARA ON/ADDEN DUM Bela Mondragon PA-C [address], [place], [address], [facility] 6 12:28:31 Wheezing 17972717 Completed 201103/09/2014 RECORDED 03/25/20 12 9:59AM BY DUNIA SILVER MA, ANNOTATI ON/ADDEN DUM Bela Mondragon PA-C [address], [place], [address], [facility] 6 12:28:32 Inflamma tory disorder of extremit y 564178999 Completed 201104/05/2014 IMPRESSI ON: REVIEWED XRAY WITH ALPHONSE JOHNSON EXAM CONSISTE NT WITH ACHILLES TENDONIT IS, AND SWELLING NO MASS FELT; RECORDED 03/25/20 12 9:59AM BY DUNIA SILVER MA, ANNOTATI ON/ADDEN DUM Bela Mondragon PA-C [address], [place], [address], [facility] 6 12:28:32 Acute bronchit is 81837226 Completed 201104/05/2014 RECORDED 03/25/20 12 9:59AM BY DUNIA SILVER MA, BARBARA ON/ADDEN DUM Bela CHOE-C [address], [place], [address], [facility] 6 12:28:31 Acute pharyngi tis 041022853 Completed 201204/05/2014 IMPRESSI ON: + RAPID STREP, POSSIBLE RIGHT EARLY PERITONS ILLAR ABSCESS, TX WITH ABX/FLUI DS/NSAID S, IF WORSENIN G PAIN OR DIFFICUL TY SWALLOWI NG CALL OFFICE FOR ENT APPT.; RECORDED 12/16/19 13 10:04AM BY BARBARA ARTIS ON/ADDEN DUM Brenda green [place] null, [facility] 6 15:19:04 Cough 67639615 Completed 201104/05/2014 RECORDED 03/25/20 12 9:58AM BY DUNIA SILVER MA, ANNOTATI ON/ADDEN DUM Brenda green [place] [facility], [facility] 6 15:19:12 Degenera tion of interver tebral disc 57633891 Completed 201104/05/2014 RECORDED 03/25/20 12 9:59AM BY DUNIA SILVER MA, BARBARA ON/ADDEN DUM Bela CHOE-C [address], [place], [address], [facility] 6 12:28:32 Dizzines s and giddines s 966013103 Completed 201204/05/2014 IMPRESSI ON: NORMAL EXAM; RECORDED 09/01/19 13 1:16PM BY CHERIE HERRERA MA, BARBARA ON/ADDEN DUM Bela Mondragon PA-C [address], [place], [address], [facility] 6 12:28:32 Edema 641835591 Completed 201104/05/2014 IMPRESSI ON: BILATERA L, LUNGS CLEAR, C/W DEPENDEN T EDEMA, HAS TAKEN HCTZ IN THE PAST WITH [facility] ENT, ALSO REVIEWED DIET/LEG ELEVATIO N/WEIGHT LOSS/COM PRESSION STOCKING S; RECORDED 06/12/20 12 9:04AM BY BARBARA ARTIS ON/ADDEN DUM Brenda green [place] null, [facility] 6 15:18:56 Adult health examinat ion Completed 201304/05/2014 IMPRESSI ON: PAP IS OVERDUE, PT WILL ARRANGE THIS, PT HAS AN IUD IN PLACE. PT WILL WORK ON DIET AND EXERCISE .; RECORDED 01/17/20 14 10:22AM BY BARBARA ARTIS ON/ADDEN DUM Bela CHOE-C [address], [place], [address], [facility] 6 12:28:32 Knee pain Completed 02/02/2019 [facility] 15:[facility]:45 Lipoma of skin and subcutan eous tissue (excludi ng face) 992660667 Completed 201104/05/2014 IMPRESSI ON: BACK; RECORDED 06/12/20 12 9:04AM BY BARBARA ARTIS ON/ADDEN DUM Bela MOCKC [address], [place], [address], [facility] 6 12:28:31 Low back pain 439695459 Completed 201204/05/2014 IMPRESSI ON: X 1 DAY, OCCURED WHILE BENDING OVER; RECORDED 09/05/19 13 10:23AM BY CHERIE HERRERA MA, BARBARA ON/ADDEN DUM Blea CHOE-C [address], [place], [address], [facility] 6 12:28:32 Lumbar sprain 096363538 Completed 200904/05/2014 RECORDED 11/12/19 10 9:28AM BY BARBARA SWEENEY ON/ADDEN DUM Bela Mondragon [facility] [address], [place], [address], [facility] 6 12:28:32 Malaise and fatigue 714202906 Completed 200904/05/2014 IMPRESSI ON: LONG TALK RE WEIGHT, ADDICTIV E EATING BEHAVIOR S, WILL OCNTINUE COUNSELI NG AND TRY TO INCREASE EXERCISE . SEES DR MORALES TOO. DOES NOT FEEL SHE NEEDS MEDS FOR DEPRESSI ON, FEELS WELL MOSTLY.; RECORDED 11/12/19 10 9:28AM BY BARBARA SWEENEY ON/ADDEN DUM Bela [facility] [address], [place], [address], [facility] 6 12:28:32 Administ ration of measles and mumps and rubella vaccine Completed 201104/05/2014 RESOLVED DATE: 06/13/20 12; IMPRESSI ON: NEG MUMPS TITER, NEEDS REVACCIN ATION; RECORDED 06/13/20 12 12:55PM BY OMAYRA Saleem MD, OFFICE VISIT Bela Mondragon [facility] [address], [place], [address], [facility] 6 12:28:32 Nausea [id number] Completed 201104/05/2014 IMPRESSI ON: RULE OUT PREGNANC Y; RECORDED 07/08/20 12 1:24PM BY BARBARA GUIDRY ON/ADDEN [facility] [address], [place], [address], [facility] 6 12:28:32 [place]ymphe[place] w[place] 963241859 Completed 201104/05/2014 RECORDED 03/25/20 12 9:59AM BY DUNIA SILVER MA, CHINTANATI ON/ADDEN DUM Bela Mondragon PA-C [address], [place], [address], [facility] 6 12:28:31 Otalgia 42816425 Completed 201104/05/2014 RECORDED 03/25/20 12 9:59AM BY DUNIA SILVER MA, ANNOTLUCIA ON/ADDEN DUM Bela Mondragon PA-C [address], [place], [address], [facility] 6 12:28:31 Synoviti s/tenosy novitis - hand [id number] Completed 200904/05/2014 IMPRESSI ON: POSSIBLE CARPAL TUNNEL SYNDROME ; RECORDED 11/12/19 10 9:28AM BY BARBARA SWEENEY ON/ADDEN DUM Bela Mondragon PA-C [address], [place], [address], [facility] 6 12:28:32 Joint pain in ankle and foot Completed 200904/05/2014 IMPRESSI ON: FXT FIBULA AND OTHER IN 01/01, STILL WITH AIN EXPECTED , TX WITH ULTRAM SINCE NO CONTRAIN DICATION S AND USE MOTRIN 800MG TID WITH FOOD; RECORDED 11/12/19 10 9:27AM BY BARBARA SWEENEY ON/ADDEN DUM Bela Mondragon PA-C [address], [place], [address], [facility] 6 12:28:32 Pain in thoracic spine 795398093 Completed 200904/05/2014 IMPRESSI ON: MUSCULAR , STRETCH; RECORDED 11/12/19 10 9:27AM BY BARBARA SWEENEY ON/ADDEN DUM Bela Mondragon PA-C [address], [place], [address], [facility] 6 12:28:32 Skin sensatio n disturba nce 96245694 Completed 201104/05/2014 IMPRESSI ON: AT SITE OF PREVIOUS CONTUSIO N FROM ABOUT A MONTH AGO, WITHOUT PAIN OR WITHOUT SIGNS OF CELLULIT IS, FOR NOW WILL MONITOR; RECORDED 06/12/20 12 9:03AM BY BARBARA ARTIS ON/ADDEN DUM Bela Mondragon PA-C [address], [place], [address], [facility] 6 12:28:32 Knee pain Completed 201104/05/2014 RECORDED 03/25/20 12 9:59AM BY DUNIA SILVER MA, BARBARA ON/ADDEN DUM Omayra garrett [facility] 9 15:55:45 Immuniza tion refused Completed 201204/05/2014 RECORDED 05/09/20 13 10:00AM BY BARBARA GUIDRY ON/ADDEN DUM Bela twago - [employer] PA-C [address], [place], [address], [facility] 6 12:28:32 Plantar fascial fibromat osis 28622251 Completed 201104/05/2014 RECORDED 06/12/20 12 9:04AM BY BARBARA ARTIS ON/ADDEN DUM Bela Mondragon PA-C [address], [place], [address], [facility] 6 12:28:32 Pyelonep hritis 14604708 Completed 201104/05/2014 IMPRESSI ON: SEE ABOVE, PT TO FINISH BACTRIM TO ER IF CANNOT TOLERATE PO WITH VOMITING OR FEELS DIZZY.., PT WILL CALL AND CHECK WITH FACULTY MEMBER TOMORROW ABOUT MAKING SURE SENSITIV ITIES MATCH BACTRIM, FLUIDS REST; RECORDED 03/25/20 12 9:59AM BY DUNIA SILVER MA, BARBARA ON/ADDEN DUM Bela Mondragon PA-C [address], [place], [address], [facility] 6 12:28:31 Hypertro phic conditio n of skin 98244197 Completed 201204/05/2014 IMPRESSI ON: AFTER WEIGHT LOSS. GETS INTERTRI GO FUNGAL INFECTIO NS DUE TO THIS; RECORDED 05/09/20 13 10:00AM BY BARBARA GUIDRY ON/ADDEN DUM Bela CHOE-C [address] [facility] [address], [place], [address], [facility] 6 12:28:32 Influenz a vaccine needed [id number] 06 Completed 201104/05/2014 RECORDED 06/12/20 12 9:13AM BY GRISELDA SILVEIRA, OFFICE VISIT Bela CHOE-C [address] [facility] [address], [place], [address], [facility] 6 12:28:32 Pain in limb 98245765 Completed 201104/05/2014 IMPRESSI ON: PT TO SET UP APPT; RECORDED 03/25/20 12 9:59AM BY DUNIA SILVER MA, BARBARA ON/ADDEN DUM Bela Mondragon PA-C [address] [facility] [address], [place], [address], [facility] 6 12:28:32 Inflamma tion of sacroili ac joint 41265136 Completed 201104/05/2014 IMPRESSI ON: RIGHT SIDED PAIN, CHANGE TO IBUPROFE N WITH FOOD AND TYLENOL WITH CODEINE AT NIGHT. PE 05/[address] UP PT HAS ANGEL K; RECORDED 07/08/20 12 1:24PM BY BARBARA GUIDRY ON/ADDEN DUM Bela MOCKC [address] [facility] [address], [place], [address], [facility] 6 12:28:32 Shoulder joint pain 061222275 Completed 201104/05/2014 IMPRESSI ON: SOUNDS LIKE BURSISIT PT TO SEE [facility]; RECORDED 03/25/20 12 9:59AM BY DUNIA SILVER MA, BARBARA ON/ADDEN DUM Bela Mondragon PA-C [address], [place], [address], [facility] 6 12:28:32 Chronic sinusiti s 58499053 Completed 201104/05/2014 RECORDED 03/25/20 12 9:59AM BY DUNIA SILVER MA, BARBARA ON/ADDEN DUM Bela Mondragon PA-C [address] [facility] [address], [place], [address], [facility] 6 12:28:31 Administ ration of diphther ia and tetanus vaccine Completed 201104/05/2014 RECORDED 07/08/20 12 1:24PM BY BARBARA GUIDRY ON/ADDEN DUM Bela Mondragon PA-C [address] [facility] [address], [place], [address], [facility] 6 12:28:32 Urinary tract infectio us disease 72296809 Completed 200804/05/2014 RECORDED 12/07/19 09 8:54AM BY BRENDA STEINER MA, BARBARA ON/ADDEN DUM Bela Mondragon PA-C [address] [facility] [address], [place], [address], [facility] 6 12:28:32 Wheezing 35761171 Completed 201104/05/2014 RECORDED 03/25/20 12 9:59AM BY DUNIA SILVER MA, BARBARA ON/ADDEN DUM Bela Mondragon PA-C [address] [facility] [address], [place], [address], [facility] 6 12:28:32 Dysuria 48296212 Completed 06/29/2016 Brenda green [place] null, [facility] 6 15:19:10 Acute pharyngi tis 823022110 Completed 06/29/2016 LUIS FERNANDO Adams, [facility] 6 15:19:04 Acute vaginiti s 80277373 Completed 06/29/2016 LUIS FERNANDO Adams, [facility] 6 15:18:52 Cough 90405979 Completed 06/29/2016 LUIS FERNANDO Adams, [facility] 6 15:19:12 Palpitat ions 71672357 Completed 01/25/2017 Omayra deluna [facility] 7 14:59:02 Spasm of back muscles 411284538 Completed 01/25/2017 Omayra deluna [facility] 7 14:59:27 Atrial fibrilla tion 31288803 Completed 02/02/2019 Omayra deluna [facility] 9 15:56:00 Spinal stenosis in cervical region 78872711 Completed 11/30/2014 mri does not show this Bela CHOE-C [address], [place], [address], [facility] 6 12:28:32 Snoring 89339485 Completed 01/25/2017 Omayra deluna [facility] 7 14:58:59 Thyroid nodule 814181455 Active Bela Giancarlo CHOE-C [address], [place], [address], [facility] 6 12:28:31 Insomnia 488011982 Active Belajihan Mondragon PA-C [address], [place], [address], [facility] 6 12:28:31 Degenera tion of thoracic interver tebral disc 95458717 Active T1/T2 Bela CHOE-Man [address], [place], [address], [facility] 6 12:28:32 Degenera tion of cervical interver tebral disc 76227096 Completed 01/25/2017 Omayra Curiel-Pamela deluna, [facility] 7 14:59:09 Edema 912912343 Completed 06/29/2016 Brenda green [place] null, [facility] 6 15:18:56 Rapid atrial fibrilla tion 384874759 Completed 01/27/2018 Omayra deluna, [facility] 8 11:21:10 Paroxysm al atrial fibrilla tion 955012830 Active Omayra garrett null, [facility] 6 15:17:25 Panic disorder 143839806 Completed 02/02/2019 Omayra deluna, [facility] 9 15:55:48 Patent foramen ovale 522459917 Active Omayra Curiel-Pamela marcelinonmarta deluna, [facility] 6 15:17:25 Pain of joint 75724885 Completed 01/25/2017 Omayra deluna, [facility] 7 14:59:13 Anxiety 03252529 Completed 01/08/2020 Bela Mondragon PA-C [address], [place], [address], [facility] 0 17:12:31 Asthma 422495933 Completed 201701/08/2020 Bela CHOE-Man [address], [place], [address], [facility] 0 17:12:58 Ex-smoke r 0800989 Active 2017 Brenda green [place] null, [facility] 8 15:42:54 Small bowel obstruct ion 309666748 Active 2018 Brenda green [place] null, [facility] 9 09:46:54 Generali zed anxiety disorder 11027755 Active 2019 Bela Mondragon PA-C [address], [place], [address], [facility] 0 17:12:32 Mild intermit tent asthma 304841542 Active 2019 Bela Mondragon PA-C [address], [place], [address], [facility] 0 17:13:08 [facility] 263203992 Active 2019 Bela MOCKC [address], [place], [address], [facility] 0 17:13:31 Obstruct jefry sleep apnea syndrome 54631324 Active 2022 Cabrera Mondragon PA-C [address], [place], [address], [facility] 3 17:09:42 Pain of left hip joint 84439733355 9100 Active 2022 Cabrera Mondragon PA-C [address], [place], [address], [facility] 3 17:10:00 Lateral epicondy litis of left humerus 19740482186 9100 Active 2022 Cabrera Mondragon PA-C [address], [place], [address], [facility] 3 13:33:40 Problem Notes None recorded. Procedures Surgical History Date Name Laterality Status Provider Name and Address Organization Details Recorded Time 05/21/20 23 Endoscopic us exam esoph completed Leslie Alba [facility] 05/21/2023 11:10:55 04/20/20 23 laparoscopic appendectomy completed Leslie Alba [facility] 04/22/2023 10:12:44 04/20/20 23 Appendectomy completed Avelina Encinas RN [facility] 04/30/2023 10:29:16 04/19/20 23 Appendectomy completed Avelina Encinas RN [facility] 04/25/2023 09:55:00 11/24/19 22 cardioversion completed Avelina Encinas RN [facility] 11/27/2021 13:27:24 01/24/20 17 extraction of wisdom tooth completed Brenda zurita [facility] 01/12/2019 09:34:35 Mammogram screening completed Brenda zurita [facility] 06/29/2016 15:20:32 Colonoscopy completed Brenda zurita [facility] 06/29/2016 15:20:36 Imaging Results None recorded. Procedure Notes None recorded. Medical Equipment None [...] RECORDED 12/17/19 10 2:04PM BY BARBARA STARK ON/ADDEN DUM; Not Available Not Available Not Available cyclobenz [...] RECORDED 11/12/19 10 9:32AM BY BARBARA SWEENEY ON/ADDEN DUM; Not Available Not Available Not Available Tylenol [...] completed RECORDED 09/05/19 13 12:18PM BY ANDREWS ONTIVEROS PA-C, OFFICE VISIT; Not Available Not Available Not [...] Details Last Updated DateTime 01/08/2023 171.45 cm Mary Becerra MA [facility] 01/08/2023 15:48:36 Date Recorded Body height Body mass index (BMI) Body weight Heart rate Oxygen saturation Oxygen saturation in Arterial blood by Pulse oximetry Body temperature Systolic And Diastolic Provider Name and Address Organization Details Last Updated DateTime 3 171.45 cm 50.2 kg/m2 286273. 52 g 60 /min 97 % 97 % 98.3 [degF] 138/87 mm[Hg] Rupali Pedro [facility] 3 15:56:22 Date Recorded Body height Body mass index (BMI) Body weight Heart rate Oxygen saturation Oxygen saturation in Arterial blood by Pulse oximetry Body temperature Systolic And Diastolic Provider Name and Address Organization Details Last Updated DateTime 3 171.45 cm 49.2 kg/m2 204133. 97 g 94 /min 96 % 96 % 97.8 [degF] 113/80 mm[Hg] Isela Metz [facility] 3 13:21:43 Date Recorded Body height Body mass index (BMI) Body weight Heart rate Oxygen saturation Oxygen saturation in Arterial blood by Pulse oximetry Body temperature Systolic And Diastolic Provider Name and Address Organization Details Last Updated DateTime 3 171.45 cm 48.1 kg/m2 464514. 82 g 68 /min 96 % 96 % 98.3 [degF] 160/98 mm[Hg] Isela Metz MA [facility] 3 14:57:00 Social History Question Answer Notes LastModified by Organizat ion Details LastModified Time Tobacco Smoking Status Former Smoker Cherie Herrera mikie [facility] 05/18/2014 10:29:49 Do You Have An Advance Directive? No [email or web address] Information not available 06/20/2022 Is Blood Transfusion Acceptable In An Emergency? Yes Information not available 01/20/2016 What Is Your Level Of Caffeine Consumption? Occasional [email or web address] Information not available 12/29/2014 How Much Tobacco Do You Chew? None Information not available 06/29/2016 In The 14 Days Before Symptom Onset, Have You Had Close Contact With A Laboratory-confi rmed COVID-19 While That Case Was Ill? No [email or web address] Information not available 06/20/2022 In The 14 Days Before Symptom Onset, Have You Had Close Contact With A Person Who Is Under Investigation For COVID-19 While That Person Was Ill? No [email or web address] Information not available 06/20/2022 Have You Been To An Area Known To Be High Risk For COVID-19? No [email or web address] Information not available 06/20/2022 What Type Of Diet Are You Following? REGULAR [email or web address] Information not available 12/29/2014 Which Illicit Or Recreational Drugs Have You Used? None Information not available 06/29/2016 Live Alone Or With Others? With Others (Juan Carlos) And 2 Daughters [email or web address] Information not available 06/20/2022 Do You Take Precautions To Prevent Distracted Driving? Yes [email or web address] Information not available 01/20/2016 How Often Do You Need To Have Someone Help You When You Read Instructions, Pamphlets, Or Other Written Material From Your Doctor Or Pharmacy? Sometimes [email or web address] Information not available 01/20/2016 Have You Served [...] Of Your Most Recent Tobacco Screening? 06/20/2022 [email or web address] Information not available 06/20/2022 How Many Children Do You Have? 2 Adriana And Renee Information not available 03/27/2018 What Is Your Current Pack Years? 10packyears [email or web address] Information not available 06/20/2022 Do You Use Protection During Sex? No Information not available 06/29/2016 Seat Belts Used Routinely Yes [email or web address] Information not available 06/20/2022 Are You Sexually Active? Yes Information not available 06/29/2016 Smoke Alarm In Home Yes [email or web address] Information not available 06/20/2022 Are You Passively Exposed To Smoke? No Information not available 06/29/2016 General Stress Level Medium [email or web address] Information not available 06/20/2022 Do You Use Sunscreen Routinely? Yes [email or web address] Information not available 12/29/2014 How Many Years Have You Smoked Tobacco? 10 [email or web address] Information not available 12/29/2014 Sex: Unknown Functional Status Question Answer Note LastModified by Organizat ion Details LastModified Time Do you or have you ever used any other forms of tobacco or nicotine? No [email or web address] Information not available 06/20/2022 What is your level of alcohol consumption? Occasional [email or web address] Information not available 12/29/2014 Are you currently employed? Yes [email or web address] Information not available 12/29/2014 Are you able to walk? [email or web address] Information not available 06/20/2022 Are you able to care for yourself? 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 Occasional [email or web address] Information not available 02/02/2019 Mental Status None recorded. Family History Relationship Description Onset Age of this Age Resolved Age Notes LastModified by Organization Details LastModified Time Father Harmful pattern of use of alcohol [email or web address] Not available 2019 15:29:15 Notes:Pt is adopted [...] mL dose 02/28/2021 completed LUIS FERNANDO Artis, [facility] 12/13/2021 11:25:33 COVID-19, mRNA, LNP-S, PF, 30 mcg/0.3 mL dose 03/21/2021 completed LUIS FERNANDO Artis, [facility] 12/13/2021 11:25:33 MMR 10/21/2002 completed Not Available [facility] 03/09/2014 14:00:38 Tdap 06/12/2012 completed Not Available [facility] 03/09/2014 14:00:38 MMR 06/12/2012 completed Not Available [facility] 03/09/2014 14:00:38 Past Encounters Encounter ID Performer Location Encounter Start Date Encounter Closed Date Diagnosis/Indication Diagnosis SNOMED-CT Code Diagnosis ICD10 Code Diagnosis Note [id number] [address] [place] [address] 11/13/2006 00:00:00 [id number] [address] [address] [place] [address] 12/23/2006 00:00:00 [id number] [address] [address] [place] [address] 07/28/2007 00:00:00 [id number] [employer] [address] [address] [place] [address] 12/06/2008 00:00:00 [id number] [address] [address] [place] [address] 03/25/2009 00:00:00 [id number] [facility] erce [address] [facility],[address] [place] [address] 04/28/2009 00:00:00 [id number] auto[employer] erce [address] [facility],[address] [place] [address] 11/11/2009 00:00:00 [id number] auto[employer] erce [address] [facility],[address] [place] [address] 12/20/2009 00:00:00 [id number] auto[employer] erce [address] [facility],[address] [place] [address] 02/17/2010 00:00:00 [id number] [employer] erce [address] [facility],[address] [place] [address] 07/25/2010 00:00:00 [id number] auto[employer]Comm erce [address] [facility],[address] [place] [address] 09/13/2010 00:00:00 [id number] auto[employer] erce [address] [facility] [address] [place] [address] 11/11/2010 00:00:00 [id number] autoEComm erce [address] [facility],[address] [place] [address] 02/01/2011 00:00:00 [id number] auto[employer]Comm erce [address] [facility] [address] [place] [address] 02/05/2011 00:00:00 [id number] auto[employer] erce [address] [place] [address] 02/06/2011 00:00:00 [id number] auto[employer]Comm erce [address] [facility] [address] [place] [address] 02/15/2011 00:00:00 [id number] auto[employer]Comm erce [address] [facility] [address] [place] [address] 03/08/2011 00:00:00 [id number] auto[employer]Comm erce [address] [facility] [address] [place] [address] 11/26/2011 00:00:00 [id number] autoEComm erce [address] [facility],[address] [place] [address] 11/30/2011 00:00:00 [id number] auto[employer] erce [address] [facility],[address] [place] [address] 01/09/2012 00:00:00 [id number] auto[employer]Comm erce [address] [facility],[address] [place] [address] 03/25/2012 00:00:00 [id number] autoEComm erce [address] [facility],[address] [place] [address] 06/12/2012 00:00:00 [id number] auto[employer]Comm erce [address] [facility],[address] [place] [address] 07/08/2012 00:00:00 [id number] autoEComm erce [address] [facility],[address] [place] [address] 09/01/2012 00:00:00 [id number] autoEComm erce [address] [facility],[address] [place] [address] 09/05/2012 00:00:00 [id number] autoEComm erce [address] [facility] [address] [place], [place] [address] 10/16/2012 00:00:00 [id number] autoEComm erce [address] [facility],[address] [place], [place] [address] 12/15/2012 00:00:00 [id number] autoEComm erce [address] [facility],[address] [place], [place] [address] 05/09/2013 00:00:00 [id number] autoEComm erce [address] [facility],[address] [place], [place] [address] 07/27/2013 00:00:00 [id number] autoEComm erce [address] [facility],[address] [place], [place] [address] 12/25/2013 00:00:00 [id number] autoEComm erce [address] [facility],[address] [place], [place] [address] 01/16/2014 00:00:00 [id number] SARAH Agrawal Main Office [address] [address] [place] [address] 05/18/2014 10:10:59 05/18/2014 10:49:51 Dysuria 78248110 UA c/w UTI, will tx and send culture Acute pharyngitis 416303403 rapid strep neg. [id number] Juan Diego Cali MD Main Office [address] [address] [place] [address] 05/29/2014 11:51:21 05/29/2014 12:23:45 Cough 86706205 Sounds inflammato ry in nature likely post viral infection vs allergy related. No current evidence for bacterial process. Will address inflammati on/broncho constricti on while waiting to see if allergy rx helps. Would need re-eval and consider of abx/CXR if persistent or sputum becomes purulent. [id number] SARAH Velasco Main Office [address] [address] [place] [address] 06/08/2014 13:52:54 06/08/2014 14:36:30 Palpitations 27514749 likely the endocrine system resetting itself after being on prednisone . reassuranc e. call if worsening [id number] SARAH Agrawal Main Office [address] [address] [place] [address] 09/20/2014 11:26:27 09/20/2014 11:45:06 Backache 595576901 Continue cyclobenza tete and finish course of prednisone , just started 2d ago, if back pain persists/w malaika will refer to PT. [id number] William SARAH Johnson Main Office [address] [facility] [address] [place] [address] 11/08/2014 09:40:15 11/08/2014 10:41:46 Acute pharyngitis 153212100 Cough 72088609 with fev er and body aches on day 6, suspect bacterial process such as pneumonia. will treat empiricall y. f/u if worsening [id number] SARAH Velasco Main Office [address] [facility] [address] [place] [address] 11/17/2014 16:24:25 11/17/2014 17:32:05 Palpitations 56620109 Atrial fibrillation 75329990 new onset with RVR. not clear if pain in her upper back is related to the afib. to ER for lowering HR and further assessment for new onset afib Neck pain 63261655 with radiating sxs. likely a cervical radiculopa thy. but it is possible that it is something cardiac related to the afib. will be further assessed in the ER. [id number] William SARAH Johnson Main Office [address] [facility] [address] [place] [address] 11/23/2014 13:19:45 11/23/2014 14:23:50 Atrial fibrillation 46867014 rate well controlled . she will f/u with cardio as planned. Spinal guerrero nosis in cervical region 70892145 concerning that she has a positive babinski [...] before next visit in 2 wks. Snoring 80617443 Thyroid nodule 211494941 Insomnia 615067679 see a elena discussion about gabapentin [id number] Omayra rush MD Main Office [address] [facility] [address] [place] [address] 12/13/2014 14:13:19 12/13/2014 14:49:18 Atrial fibrillation 08491706 on meds below and doing well continue followup with cardiology Degenerati on of cervical intervertebral disc 70807323 trial of tramadol Thyroid nodule 392848791 pt will get thyroid nodule looked at, most likely will get biopsy Edema 225059540 [id number] Omayra rush MD Main Office [address] [address] [place] [address] 12/29/2014 09:06:58 12/29/2014 10:00:23 Adult health examination 728881905 utd on screening Degenerati on of cervical intervertebral disc 54855818 pt is on tramadol and it helps, still having pain, pt is waiting for PT apt, will have my staff call and check on it Atrial fibrillation 92759537 on meds below and doing well continue followup with cardiology , only on FS asa and cartia, continue Thyroid nodule 599379351 needle biopsy later this month, will hold asa for 5 days prior and then will ask thyroid surgeon when she can restart, keep on all other rmeds Edema 816347829 [id number] SARAH Love Main Office [address] [address] [place] [address] 08/03/2015 11:18:40 08/03/2015 11:44:57 Cough 78355830 R05 Symptomati c treatment- lots of fluids, rest, tea with honey, OTC cough drops/ cough med as needed, humidifier as needed. Tylenol or ibuprofen for fever/ pain. Return for worsening/ concerns. [id number] Bela Mondragon PA-C Main Office [address] [address] [place] [address] 12/19/2015 09:57:59 12/19/2015 11:39:30 Palpitations 62114000 R00.2 Rapid atri al fibrillation 680452132 I48.91 Pt. is referred by ambulance to [facility] ER for management of rapid arrhythmia . PT. was maintained on O2 by nasal canula on 2L until paramedics arrived. Pt. will be seen in hospital f/u after the discharge and sleep study will be arranged for her. Note faxed to ER. [id number] Bela Mondragon PA-C Main Office [address] [facility] [address] [place] [address] 12/21/2015 10:51:33 12/21/2015 11:58:58 Paroxysmal atrial fibrillation 400471269 I48.0 Recommend to avoid alcohol. Check TSH and CBC. Schedule echocardio gram and sleep study. Consider cardiac referral. Panic disorder 891194935 F41.0 Pt. is on Tramadol for neck pain which will interact with SSRIs. Will recommend to restart counseling RIVER and use Lorazepam PRN for panic attacks. PT. will address this at f/u with PCP. Snoring 75211927 R06.83 Sleep study referral is made to do RIVER. [id number] Omayra rush MD Main Office [address] [facility] [address] [facility] [place] [address] 01/02/2016 13:10:18 01/02/2016 14:49:25 Paroxysmal atrial fibrillation 167074304 I48.0 2 documented episodes total, one in 12/09 and one a year ago. THe one in in 12/09 was after heavy drinking the night before, pt with a small PFO on Echo, will start a baby aspirin and see dR Brandt tomorrw Edema 836510632 R60.9 continue hctz Pain of joint 88145943 M 25.50 pt with diffuse joint pain, she finds she is so much more comfortabl e on tramadol 100mg bid Patent foramen ovale 204 820907 Q21.1 seen on echo, started pt on a baby aspirin today Anxiety 14985393 F41.9 will work on this and her eating issues, she feels she is addicted to food. meetin with [facility] today [id number] Omayra rush MD Main Office [address] [facility] [place] [address] 01/20/2016 14:12:02 01/20/2016 15:11:46 Adult health examination 139336868 Z00.00 utd on screening Screening for malignant neoplasm of breast 071660470 Z12.39 pt will arrange Patent foramen ovale 204 009484 Q21.1 seen on echo, started pt on a baby aspirin and cardiology has reviewed with her Paroxysmal atrial fibrillation 504331097 I48.0 2 documented episodes total, one in [...] a shorter monitor she could do Edema 690173500 R60.9 continue hctz [id number] Omayra rush MD Main Office [address] [address] 06/06/2016 13:54:52 06/06/2016 14:26:07 Atrial fibrillation 45884849 I48.91 regular rhythmn today, on baby aspirin, no recent episodes. one was associated with alcohol in the past Acute pharyngitis 545377 003 J02.9 neg quick strep, seems viral Cough 49581989 R05 use cough med no abx needed [id number] Lan Oliver MD Main Office [address] [place] [address] 06/09/2016 10:25:58 06/09/2016 11:21:14 Cough variant asthma 088250606 J45.991 She was instructed to call next week if her symptoms persist. This may be a URI which has set off asthma. [id number] Bela Mondragon PA-C Main Office [facility] [address] 06/11/2016 10:46:37 06/11/2016 11:26:31 Asthmatic bronchitis 777511920 J45.909 R/o pneumonia. Chest XRAy to be done. Continue Prednisone . Taper down to 40 mg for 2 days, 30 for 2 days, 20 for 2, 10 for 2. UP draft with Albuterol given in the office. Continue cough meds , rest and fluids. [id number] SARAH Love Main Office [address] [address] 06/29/2016 15:09:06 06/29/2016 15:58:04 Acute bacterial bronchitis 026892559 J20.9 Improving though she does still have a cough, will repeat CBC to check WBC. Continue inhaler/ cough med as needed. Elevated blood-pressure reading without diagnosis of hypertension 740389394 R03.0 High BP today, patient notes her BP has been higher lately, will have her f/u in 2 weeks for recheck of BP and she will have BMP done. [id number] Bela Mondragon PA-C Main Office [address] [address] [place] [address] 07/30/2016 13:44:57 07/30/2016 14:59:36 Benign essential hypertension 5995307 I10 [id number] Bela Mondragon PA-C Main Office [address] [address] [place] [address] 10/26/2016 14:44:08 10/26/2016 15:35:24 Acute pharyngitis 308741484 J02.9 Sat water gargles and take OTC pain meds. Elevated blood-pressure reading without diagnosis of hypertension 814167804 R03.0 BP remains borderline . Pt. is on HCTZ 25 mg and is recommende d to continue. Repeat BMP. F/u with PCP in 3-4 m. Keep low sodium and low caffeine diet. [id number] Juan Diego Cali MD Main Office [address] [address] [place] [address] 10/27/2016 10:46:26 10/27/2016 11:22:38 Acute pharyngitis 186163978 J02.9 Given active abx therapy which should [...] swallow oral secretions . Exudative pharyngitis 12 6367135 J02.9 [id number] Cabrera Mondragon PA-C Main Office [address] [place] [address] [place] [address] 10/30/2016 08:51:17 10/30/2016 09:54:13 Acute pharyngitis 142525419 J02.9 strep neg, but persists despites 10 days of amox - ? monet-tonsi lar abscess - see below Dental abscess 884222882 K04.7 s/p amox x 10 days - next f/u 3.28 for tooth extraction Peritonsillar abscess 15 018288 J36 ? caused by dental abscess? Low back pain 885798827 M54.5 Impacted cerumen 0722695 6 H61.21 mild - mod R ear [id number] Omayra rush MD Main Office [address] [facility] [address] [place] [address] 11/26/2016 08:54:30 11/26/2016 09:29:41 Amenorrhea 23589845 N91.2 neg test Gastroesop hageal reflux disease 639293003 K21.9 untx, quite symptomati c, that is what nausea is form, tx and check h pylori Nausea 606214467 R11.0 due to GERD return 6 weeks, check any discomfort after eating is resolved, if not refer to GI Body mass index 40+ - severely obese 929329163 Z68.41 Obesity 337656169 E66.9 [id number] Omayra rush MD Main Office [address] [facility] [address] [place] [address] 01/25/2017 14:31:24 01/25/2017 15:18:18 Adult health examination 347862913 Z00.00 utd on screening except mammogram, pt iwll arrange, needs to work on diet and exercise Screening for malignant neoplasm of breast 940996788 Z12.39 pt will arrange Urinary incontinence 165 634207 R32 on meds Morbid obesity 002061815 E66.01 Obesity 289919339 E66.9 Paroxysmal atrial fibrillation 443813673 I48.0 2 documented episodes total, one in [...] trigger for afib Pain in right knee 91530 57758 26924 M25.561 Sleep apnea 60666021 G47 .30 pt tested positive but has not gotten CPAP yet, needs to make a visit [id number] SARAH Love Main Office [address] [address] 10/10/2017 15:31:26 10/10/2017 16:02:27 Wheezing 89575120 R06.2 Cough 71170683 R05 Symptomati c treatment- lots of fluids, rest, tea with honey, OTC cough drops/ cough med as needed, humidifier as needed. Tylenol or ibuprofen for fever/ pain. Return for worsening/ concerns. Javier OTC. Acute bronchitis 3248627 2 J20.9 Pain in right knee 32947 43778 44902 M25.561 had been on tramadol then lost her insurance, requests refill. will fill x 1 month and she will need f/u with PCP to get re-establi shed with med. [id number] Cabrera Mondragon PA-C Main Office [address] [address] 10/28/2017 15:53:21 10/28/2017 17:35:33 Cough 03314055 R05 check cxr to r/o pna -- ? d/t pnd Pain of right wrist 3169 096908 93156 M25.531 ? CTS - neg tinels/pha lens/finkl estein -- will get OT eval and rec use wrist splint hs Allergic rhinitis 579408 04 J30.9 Asthma 113641992 J45.20 [id number] Cabrera Mondragon PA-C Main Office [address] [address] 11/18/2017 13:44:44 11/18/2017 15:46:12 Cough 76774126 R05 neg cxr, less but persists - pt concerned - see below Dyspnea 720639747 R06.00 nl ekg and spirometry - offered re-assuran ce Asthma 628575852 J45.20 will check spirometry - see above - yue nl, but pt used to take advair yrs ago and states she feels like her lungs are still inflamed/h ave a lot of mucous - will give trial of ICS to see if help Paroxysmal atrial fibrillation 038796497 I48.0 no problems c this in a long time - see above Obstructiv e sleep apnea syndrome 15310265 G47.33 no get cpap machine - encouraged pt to f/u c sleep med Seasonal a llergic rhinitis 737614935 J30.2 cont singulair as dir [id number] Omayra rush MD Main Office [address] [facility] [address] [facility] [place] [address] 01/27/2018 10:50:09 01/27/2018 11:48:58 Adult health examination 205988171 Z00.00 , needs to work on diet and exercise, eats a lot of bread and pasta, pt needs ot get temptation s out of the house, 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 [id number] Cabrera Mondragon PA-C Main Office [address] [facility] [address] [place] [address] 03/27/2018 11:24:04 03/27/2018 12:19:20 Lateral epicondylitis 305566892 M77.11 will give 2 options of TE support - she will decide which is covered better / fits better, as well as rec wrist support at hs d/t her sleeping position (R hand bent under head - full wrist flexion), and get pssp eval [id number] Cabrera Mondragon PA-C Main Office [address] [facility] [address] [place] [address] 06/11/2018 09:23:10 06/11/2018 10:12:36 Body mass index 40+ - severely obese 901927494 Z68.42 urged pt to see nutritioni st in gay, and if no sig improvemen t then [...] counseling and/or coordinati on of care. Fatigue 83600255 R53.83 Anxiety 85232543 F41.9 see above re: therapist Morbid obesity 299969094 E66.01 [id number] Omayra rush MD Main Office [address] [facility] [address] [place] [address] 07/30/2018 10:40:47 07/30/2018 11:37:06 Acute asthma 503605585 J45.901 not on any control meds, will start inhaled steroid, pre proair and singulair and return in 3 months will get spirometry then [id number] Juan Diego Cali MD Main Office [address] [place] [address] 01/12/2019 09:27:00 01/12/2019 10:40:07 Indigestion 213255666 K30 regular diet, avoid offending foods. Trial of PPI and check for recurrence of hpylori. Has followup with Dr Veena Mccarthy in a month Pain in left knee 595639 5463 12586 M25.562 PT, discuss at followup, will try physical therapy, pt has multiple joint pains for years Diarrhea 35608213 R19.7 ? IBS, try daily fiber and probiotic, followup in a month, if not better consider GI eval. Pt can try dairy eliminatio n for a week, does not have symptoms of gluten intoleranc e. [id number] Omayra rush MD Main Office [address] [facility] [address] [place] [address] 02/02/2019 15:28:28 02/02/2019 16:19:18 Adult health examination 071664416 Z00.00 eating better, wants to lose weight, is due for mammogram Screening for malignant neoplasm of breast 452299706 Z12.39 we will arrange due to lack of followthfo ugh Patent foramen ovale 204 683583 Q21.1 seen on echo, started pt on a baby aspirin and cardiology has reviewed with her Paroxysmal atrial fibrillation 617310473 I48.0 2 documented episodes total, one in [...] during the week. Lymphedema of lower extremity 485910683 I89.0 better on meds, continue hctz Obstructiv e sleep apnea syndrome 66653911 G47.33 pt ot see sleep medicine again, should retry cpap Body mass index 40+ - severely obese 012113688 E66.01 Z68.42 pt to lower carbs, hard for her to keep on the healthy eating track. [id number] Juan Diego Cali MD Main Office [address] [facility] [address] [place] [address] 04/07/2019 13:19:55 04/07/2019 14:23:48 Pain in left knee 2408705702 81795 M25.562 ? PFS vs other - will [...] on of care. Gastroesop hageal reflux disease 945170157 K21.9 [id number] Omayra rush MD Main Office [address] [facility] [address] [place] [address] 12/31/2019 13:03:19 12/31/2019 14:22:13 Asthma 368014749 J45.909 pt will restart med Urge incon tinence of urine 41387315 N39.41 urology had patient on oxybutynin . will restart Lymphedema of lower extremity 081059994 I89.0 better on meds, will try chlorthali done [id number] Phong Nichole MD [facility] [address] [address] [place] [address] 01/08/2020 15:07:08 01/11/2020 08:39:09 Indigestion 318033973 K30 most likely in response to starting sertraline . Pt tried taking Tums but had no relief. WE will try PPI over the week end and if still having indigestio n discomfort , call after the weekend and be seen in the office to check her EKG. Generalize d anxiety disorder 44210547 F41.1 contineu SSRI as prescribed by psych. MIght be experienci ng symptoms of indigestio n due to SSRI as well. Lymphedema of lower extremity 534244973 I89.0 continue diuretic, but pt. was advised to have labs done not later than after the week end. [id number] Lan Oliver MD [place] [address] [address] [place] [address] 04/01/2020 07:58:50 04/01/2020 15:09:46 Abdominal pain 85492576 R10.9 She will try simethicon e. There was nothing on her history that warranted immediate attention and she was advised to call the office in the am if it persisted. [id number] Omayra rush MD [place] [address] [place] [address] [place] [address] 04/22/2020 06:41:45 04/24/2020 10:57:02 [id number] Omayra rush MD Main Office [facility] [address] [place] [address] 05/30/2020 15:06:28 05/30/2020 16:57:55 Adult health examination 730965206 Z00.00 Pt has concerns about her weight and is under stress with family and work. Social and family history reviewed. Immunizati ons reviewed, advised annual flu shot, will get at [facility] as we do not have any in stock at this time. . 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 declines medication at this time. NO SI or HI, Addiction 85862313 R46.8 1 Pt feels she has a food addiction, recommende d to go to OA or call to see if any virtual meetings. Most of the appt spent talking about food, eating and stress/anx iety related to this. She will reach out to the counselor, suggested some ideas for this. Elevated blood-pressure reading without diagnosis of hypertension 567327127 R03.0 Pt under stress today, tearful, recheck at next ov Mild inter mittent asthma 917683929 J45.20 stable at this time, uses montelukas t Morbid obesity 702681977 E66.01 Pt will look into OA program. Suggested lowering carbs, more protein, no meal skipping and tips to avoid night eating. Advised to try and me more active. Short term followup [id number] Omayra rush MD Main Office [address] [place] [address] 12/28/2020 10:59:55 12/28/2020 14:58:13 Cervical radiculopathy 32967353 M54.12 Will do a trail of NSAID [...] compress.N willow exercises provided. Urinary incontinence 165 859514 R32 She was on oxybutynin 20 ER, she has a hx of small bowel obstructio n she requested a refill at that dose, given hx of small bowel obstructio n I think it might not be a bad idea for patient to discuss with urology if other options can be explored and she agreed to this. Medial epicondylitis 532 74549 M77.01 Will do trial of NSAID, Patient aware risk of GI bleed as she is also on elaquis. She was told to take with meal. If any signs of bleeding she was asked to stop and let us know. [id number] Omayra rush MD Main Office [address] [facility] [address] [place] [address] 01/09/2021 15:56:27 01/10/2021 09:57:35 Paroxysmal atrial fibrillation 988655412 I48.0 pt is followed by cardiology , remains on eliquis, flecanide and metoprolol for now. Seems to be in NSR today, no sx. Advised to consider sleep studay repeat and work on wt loss. Pt wiil consider Body mass index 40+ - severely obese 275228530 E66.01 Z68.41 Pt will decide on lifeguard appt, will try cutting back, walking. Discusse OA program Generalize d anxiety disorder 35085790 F41.1 pt agrees to continue with her counselor to discuss issues especially her wt and eating compulsion . declines medication at this time. NO SI or HI, [id number] Omayra rush MD Main Office [address] [facility] [address] [place] [address] 01/25/2021 14:49:47 01/25/2021 16:14:43 Cervical radiculitis 19665147 M54.12 trial of short pred taper to decrease inflammati on with radiculopa thy. Side effects reviewed. Cervical radiculopathy 84516636 M54.12 stay on gabapentin , can use bid if not too drowsy, or can use 2 at bedtime Acute thor acic back pain 113947536 M54.6 check xay, do stretches, advised PT, pt will consider Body mass index 40+ - severely obese 493929325 E66.01 Z68.41 pt would like to see lifeguard, will do a referral [id number] Omayra rush MD [facility] [address] [facility] [address] [place] [address] 02/13/2021 08:33:32 02/13/2021 14:20:43 Tendinitis of right elbow 2294535166 7198567 M67.823 continued right elbow pain, sounds like tendonitis , ice and set up appt at [facility] for cortisone injection Pain of le ft shoulder blade 347394027 M25.512 pt with muscular pain around left scapula into neck and shoulder, most likely related to muscular pain form poor posture, left sided pectoralis insertion pain on and off, does not feel like pts cardiac pain and it is positional , no need for cardiac eval. pt to set up PT, use a roller on upper back Pain of le ft shoulder joint 2790523487 5416696 M25.512 related to muscular pain from neck and back [id number] Omayra rush MD Main Office [address] [facility] [address] [facility] [place] [address] 06/23/2021 13:56:44 06/23/2021 15:13:56 Adult health examination 283172862 Z00.00 Pt has concerns about her weight and is under stress with family and work but stable at this time. Social and family history reviewed. Immunizati ons reviewed, advised annual flu shot,, will be due for Tdap next year . 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 declines medication at this time. NO SI or HI, Spent time disussing family issues around teen age daughter Paroxysmal atrial fibrillation 881753079 I48.0 pt is followed by cardiology , remains on eliquis, flecanide and metoprolol for now. Seems to be in NSR today, no sx. Advised to consider sleep study repeat and work on wt loss. Pt wiil consider sleep evaluation Mild inter mittent asthma 683456403 J45.20 stable at this time, has proair prn Morbid obesity 462182041 E66.01 Pt will look into lifeguard. Suggested lowering carbs, more protein, no meal skipping and tips to avoid night eating. Advised to try and me more active. Screening for malignant neoplasm of breast 510314956 Z12.39 [id number] Omayra rush MD Main Office [address] [facility] [address] [place] [address] 12/13/2021 07:41:49 12/13/2021 11:53:08 [id number] Omayra rush MD [facility] [address] [facility] [address] [place] [address] 04/08/2022 15:01:10 04/09/2022 10:56:34 Pain in right arm 440758628 M79.601 had to call into a different pharmacy, first one closed will treat for 2 days since weekend then needs in person appt, could be radicular pain, unable to tell without exam [id number] Juan Diego Cali MD Main Office [address] [facility] [address] [place] [address] 04/18/2022 14:48:18 04/18/2022 16:00:22 Cervical radiculitis 63873316 M54.12 will get pmr eval, and give trial of gbn -- could consider tyl 500mg 1-2 tabs up to 3x/day as well Paroxysmal atrial fibrillation 341830170 I48.0 encouraged pt to resume eliquis as per card - if too $$, then consider coumadin [id number] Omayra rush MD Main Office [address] [facility] [address] [place] [address] 06/20/2022 13:57:16 06/20/2022 15:17:51 Adult health examination 488219430 Z00.00 Pt has concerns about her weight and is under stress with family and work but stable at this time. Social and family history reviewed. Immunizati ons reviewed, advised annual flu shot, due for Tdap, covid booster. She will do appt at the pharmacy. 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 declines medication at this time. NO SI or HI, Spent time discussing family issues Paroxysmal atrial fibrillation 472344288 I48.0 pt is followed by cardiology , remains on eliquis, flecanide and metoprolol for now. Seems to be in NSR today, no sx. Advised to consider sleep study repeat and work on wt loss. Pt will consider sleep evaluation Mild inter mittent asthma 952479058 J45.20 stable at this time, has proair prn Morbid obesity 674662008 E66.01 Pt will look into lifeguard. Suggested lowering carbs, more protein, no meal skipping and tips to avoid night eating. Advised to try and me more active. Screening for malignant neoplasm of breast 292462792 Z12.39 Body mass index 40+ - severely obese 834197414 Z68.43 pt would like to see lifeguard, will do a referral [id number] Juan Diego Cali MD Main Office [address] [place] [address] 09/26/2022 15:38:56 09/26/2022 16:43:10 Mild intermittent asthma 265000234 J45.20 rec cont montelukas t as dir, advised pt on how to use flovent x few wks - when feeling better can stop, but cont alb 5-30min ac exercise in future Paroxysmal atrial fibrillation 119218102 I48.0 cont meds, f/u c card as dir Obstructiv e sleep apnea syndrome 06352365 G47.33 seen by sleep med earlier today, will get updated sleep study Dyspnea 398171029 R06.00 negative cardiac w/u - ? d/t asthmatic bronchitis / post viral syndrome vs deconditio ashlee / obesity -- check probnp Impaired f asting glycemia 961733827 R73.01 Fatigue 23079854 R53.83 Pain of le ft hip joint 6062927922 49886 M25.552 check xray - pain x several months - r/o djd - if sig, then get ortho eval [id number] Juan [facility] [address] [facility] [address] [place] [address] 12/04/2022 08:29:26 12/04/2022 10:25:23 Cough 93146767 R05.9 rec celine or mucinex, suspect pnd == sinusitis - see below Acute sinusitis 34486016 J01.90 rec cont ns spray prn, consider warm washcloth to side of neck recommend probiotics while on abx Acute conjunctivitis 513 82066 H10.33 she left her contacts in for ~ 48 hours - suspect corneal ulceration - strongly encouraged pt to see her eye md, meanwhile will rx c abx eye ointment [id number] Juan Diego Cali MD [facility] [address] [facility] [address] [place] [address] 01/08/2023 15:46:57 01/08/2023 16:25:29 Urinary tract infectious disease 21893059 N39.0 pt declines giving urine sample, so will rx empiricall y c cipro cont push fluids, consider cranberry juice, also consider prn pyridium recommend probiotics while on abx Seasonal a llergic rhinitis 444886803 J30.2 rec resume singulair as dir, or consider claritin, cont prn ns spray to help lessen pndrtc next week (needs ov not TH) if cough persists [id number] Juan Diego Cali MD Main Office [address] [address] [place] [address] 04/17/2023 15:26:53 04/17/2023 16:56:58 Lateral epicondylitis of left humerus 3000793991 55992 M77.12 trial c TE support, cool compress prn, wrist splint o/n -- if no better call us - consider ortho for sandoval injxn Skin lesion 35804688 L98 .9 most likely epidermoid cyst - will get derm eval, ? may need to see general surgeon if they cannot remove Pain in both feet 075231 8810 9024792 M79.671 better lately, no evidence / suspicion of fx [id number] Giorgio Machado MD Main Office [address] [address] [place] [address] 04/19/2023 13:10:00 04/19/2023 13:40:50 Abdominal pain 85546529 R10.9 Acute abdomen, refer to emergency department . PT. refused to go by ambulance. Will drive to [facility]. Call ahead placed to [facility] ER. [id number] MOLLY LAM MD Main Office [address] [address] [place] [address] 04/26/2023 10:09:45 05/10/2023 16:14:02 [id number] ДМИТРИЙ TAYLOR Main Office [address] [address] [place] [address] 07/24/2023 14:43:32 07/24/2023 15:27:47 Cough 58615653 R05.9 -in office RSV, flu, and covid are negative-d iscussed OTC interventi ons to help with a cough Acute sinusitis 82542308 J01.90 -x3 weeks of symptoms of sinus pressure, nasal congestion , cough, post nasal drip, and sore throat-guanakito al decongesta nts provide minimal relief-exp osed to other coworkers with similar symptoms-P E revealed sinus tenderness to the frontal sinus, erythemato us posterior oropharynx and nasal discharge- will start pt on augmentin x10 day course Mild inter mittent asthma [id number] J45.20 per pt request, refill Health Concerns Section Related Observation LastModified by Organization Detai ls LastModified Time None Recorded Concern Status LastModified by Organization Details LastModified Time None Recorded Advance Directives Directive N: Payers Insurance Date Sequence Insurance Name Policy Number Policy Pollard Covered Member ID Pollard Member ID Guarantor Name 12/13/2020 1 [facility] - DIRECT CONNECTORCARE TYPE I (HMO) [id number] Steph Neal [id number] Steph Neal 03/19/2024 1 [facility] - DIRECT CONNECTORCARE TYPE I (HMO) [id number] Steph Neal [id number] Steph Neal 09/09/2014 1 [facility] (MEDICAID REPLACEMENT - HMO) [id number] Steph Neal [id number] Steph Neal 10/10/2017 2 [place]: [facility] Steph Neal [id number] Steph Neal 06/23/2021 PAYMENT PLAN Steph Neal 10/10/2017 1 [facility] - MEDICAID ESSENTIAL (MEDICAID HMO) [id number] Steph Neal [id number] Steph Neal 12/13/2020 2 [facility] - DIRECT CONNECTORCARE TYPE I (HMO) Steph Neal [id number] Steph Neal Notes Date Note Type Note Provider Name and Address Organization Details Recorded Time 01/08/2023 text/html Patient has been having urinary Pressure and frequency . Patient has noticed spasms after urinating since Saturday. no f/c, hematuria Cabrera Mondragon PA-C [address], [place], [address], [facility] 01/08/2023 16:19:43 04/17/2023 text/html pt had B foot pa in x few wks, up until recently - now resolvedcurr c/o L elbow painno trauma to feet or LUEdoes sleep c L wrist flexed occ.also c/o lesion on her back - boyfriend is concerned, no pus dc, no f/c Cabrera Giancarlo CHERRY [address], [place], [address], [facility] 04/20/2023 13:37:29 04/19/2023 text/html 47 year old fema le c/o acute R. mid to lower abdominal pain started yesterday morning and gradually worsened in severity. Non radiating, no nausea. NO fever, chills. NO prior h/o similar pain, renal calculi. Urine with hemolyzed trace of blood and ketones. Bela Mondragon PA-C [address], [place], [address], [facility] 04/19/2023 14:39:26 04/26/2023 text/html Hospitalization Contact RecordReported bypatient.[facility] admit date: (Please enter in format 'MM/DD/YYYY') (04/19/2023); date of discharge: (Please enter in format 'MM/DD/YYYY') (04/23/2023); date of contact: (Please enter in format 'MM/DD/YYYY') (04/26/2023)Notes:[facility] care covered inpatient stay? noTOC with in 48 [...] hrs prn pain (30 tabs). ANJU Sewell, [facility] 05/10/2023 16:14:01 07/24/2023 text/html Sinusitis/Allerg yRepor power bypatient.Location:[facility]; [facility] Associated Symptoms:no fever; no nausea [...] sob, or chest pain. 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 Requests RSV + flu testing. Home covid test is negative. Lan Oliver MD [address], [place], [address], [facility] 07/30/2023 09:10:02 OBGyn Episode No OBEpisode recorded.
== END 2025-03-09 16:38 | disposition home or self-care (01) ==
LOC: HO.HMCH 15:27
DX: I48.0 Paroxysmal atrial fibrillation (principal); E66.01 Morbid (severe) obesity due to excess calories; E78.00 Pure hypercholesterolemia, unspecified; Z68.43 Body mass index [BMI] 50.0-59.9, adult; M54.50 Low back pain, unspecified

== ENCOUNTER → 2025-03-09 15:26 | Outpatient (BNVA) | payer OTHER, SELFPAY | DX: E66.01 Morbid (severe) obesity due to excess calories (principal); J45.909 Unspecified asthma, uncomplicated; G47.33 Obstructive sleep apnea (adult) (pediatric); F32.A Depression, unspecified; I48.0 Paroxysmal atrial fibrillation; E78.00 Pure hypercholesterolemia, unspecified; M54.50 Low back pain, unspecified; Z68.43 Body mass index [BMI] 50.0-59.9, adult | CPT/HCPCS: 96127; 99212 ==

== ENCOUNTER 2025-03-25 14:53 | Outpatient (AMB) | payer OTHER, SELFPAY ==
[2025-03-25 14:56] VITALS: BMI 50.8
--- NOTE | 2025-03-25 14:56 | MHC.OFFVIS ---
Vital Signs 03/25/25 14:56 Height 5 ft 8 in Weight 334 lb BMI 50.8 Intake Visit Reasons: OV - Rt Knee 11/18/24 NE Intake Note: Steph is a 49 year old female who presents today for a follow up of her Right Knee s/p Right Knee partial medial meniscectomy and chondroplasty 11/18/24. Patient reports she has no improvements from her last visit & continues to feel pulling on the lateral aspect of her knee with flexion. Allergies No Known Allergies (No Known Allergies*) Allergy (Verified 03/25/25 14:59) HPI HPI OV - Rt Knee 11/18/24 NE: Details: Steph is 4 mo s/p right knee with intra operative findings of severe OA. She is improving and feels better than at last visit. She has good days and bad days and is trying to be more active. She also has back pain which limits her. She is trying to lose weight. [facility] Medical History Sleep apnea, obstructive Asthma Atrial fibrillation Surgical History History of knee surgery History of appendectomy Family History Other Adopted Social History Household Members: Family Housing: Apartment Do you presently have visiting nurse or other home services: No Alcohol intake: current Alcohol intake frequency: holidays/special occasions only Comment: Socially Patient Tobacco Use Status: Former Tobacco user Cigarette Packs Per Day: 0.5 Years Smoked: 15 +/- e-Cigarette/Vaping Use: Never Used Second Hand Smoke Exposure: Yes service: No Current occupational status: employed 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 This is expected given her osteoarthritis. I do think she would benefit from weight loss and continued strengthening. No additional intervention warranted. We had a long discussion regarding natural history of arthritis and what she may expect in the upcoming years. She can see me as needed. Coding Level of Care Code Est Pt Level 3 (01264) Diagnoses Osteoarthritis of right knee M17.11
== END 2025-03-25 16:13 | disposition home or self-care (01) ==
LOC: HO.HOS 14:54
PROVIDERS: Visit Provider Orthopaedic Surgery
DX: M17.11 Unilateral primary osteoarthritis, right knee (principal)
CPT/HCPCS: 99213

== ENCOUNTER → 2025-03-25 14:53 | Outpatient (BNVA) | payer OTHER, SELFPAY | PROVIDERS: Visit Provider Orthopaedic Surgery | DX: M17.11 Unilateral primary osteoarthritis, right knee (principal) | CPT/HCPCS: 99212 ==

== ENCOUNTER 2025-03-31 08:24 | Outpatient (AMB) | payer OTHER, SELFPAY ==
--- NOTE | 2025-03-31 13:48 | A.OFFVIS_ITS ---
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 Allergies No Known Allergies (No Known Allergies*) Allergy (Verified 03/31/25 22:42) Medication List - Last Reconciled 03/31/25 by Kristofer Cardenas MD acetaminophen (Tylenol) 650 mg (2 x 325 mg) PO Q4H PRN albuterol-budesonide 90-80 mcg/actuation 2 inhalations inhalation DAILY PRN apixaban (Eliquis) 5 mg PO BID benzonatate 100 mg PO BID PRN flecainide 50 mg PO BID furosemide (Lasix) 20 mg PO DAILY PRN levonorgestrel (Mirena) intrauterine metoprolol succinate ER 25 mg PO DAILY oxycodone-acetaminophen 5-325 mg 1 tab PO Q8H PRN 7 days HPI Comments Details: Previous weight loss efforts: C program (lost 20lbs), Shayy for 3 months: lost 15lbs Wakes up: 5am, Sleeps: 7.30pm Breakfast: 7am (eggs) Lunch: 1pm (tuna sandwich, salmon) Dinner: 6pm (chicken, steaks, burger) Snacks: 10am (candy, donuts, chips), 8pm (ice cream) Exercise: none Beverages: Coffee rarely, Tea: none, Soda (1/wk Dr. Anthony), Juice: 3/wk, ETOH: 1/wk (Vodka x3-4 shots) PFSH Medical History Sleep apnea, obstructive Asthma Atrial fibrillation Surgical History History of knee surgery History of appendectomy Family History Other Adopted Social History Household Members: Family Housing: Apartment Do you presently have visiting nurse or other home services: No Alcohol intake: current Alcohol intake frequency: holidays/special occasions only Comment: Socially Patient Tobacco Use Status: Former Tobacco user Cigarette Packs Per Day: 0.5 Years Smoked: 15 +/- e-Cigarette/Vaping Use: Never Used Second Hand Smoke Exposure: Yes service: No Current occupational status: employed 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 Please send measurements from the body composition scale 2. Purchase a stationary bike 3. Try the Fit Crunch and Barebell bars and let me know if you like them 4. I believe she needs an agrressive lifestyle program with Zepbound followed by sleeve gastrectomy once at least 30lbs are lost
[2025-03-31 14:01] VITALS: BP 167/88; PULSE 69; TEMP 36.6; BMI 51.0
== END 2025-03-31 22:51 | disposition home or self-care (01) ==
PROVIDERS: Visit Provider Surgery
DX: E66.01 Morbid (severe) obesity due to excess calories (principal); Z68.43 Body mass index [BMI] 50.0-59.9, adult
CPT/HCPCS: 99204

== ENCOUNTER → 2025-03-31 08:24 | Outpatient (BNVA) | payer OTHER, SELFPAY | PROVIDERS: Visit Provider Surgery | DX: R42 Dizziness and giddiness (principal); I48.0 Paroxysmal atrial fibrillation; E66.01 Morbid (severe) obesity due to excess calories; Z68.43 Body mass index [BMI] 50.0-59.9, adult | CPT/HCPCS: 93005; 99202; 99212 ==

== ENCOUNTER 2025-03-31 13:00 | Outpatient (AMB) | payer OTHER, SELFPAY ==
--- NOTE | 2025-03-31 13:15 | A.OFFVIS_ITS ---
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 Accompanied by: Self / Same As Patient Allergies No Known Allergies (No Known Allergies*) Allergy (Verified 03/31/25 13:50) Medication List - Last Reconciled 03/31/25 by Lonnie Magallon NP acetaminophen (Tylenol) 650 mg (2 x 325 mg) PO Q4H PRN albuterol-budesonide 90-80 mcg/actuation 2 inhalations inhalation DAILY PRN apixaban (Eliquis) 5 mg PO BID benzonatate 100 mg PO BID PRN flecainide 50 mg PO BID furosemide (Lasix) 20 mg PO DAILY PRN levonorgestrel (Mirena) intrauterine metoprolol succinate ER 25 mg PO DAILY oxycodone-acetaminophen 5-325 mg 1 tab PO Q8H PRN 7 days HPI Comments Details: This is a 49-year-old female patient coming in for complaints of dizziness. Patient with a history of AFib on flecainide therapy and morbid obesity. Patient reports that for the past few weeks she has been having dizziness which could happen with exertion as well as at rest. Patient states that she has not been paying much attention to it but has noticed that it is happening more with exertion now. Patient states that she initially thought this was related to dehydration and started drinking water but noticed that she was continuing to have these intermittent dizziness. Patient denies any associated symptoms of exertional chest pain, shortness of breath, palpitations, orthopnea, PND, leg edema, presyncope, or syncope. Patient is reporting compliance with all her medications. Reported signs of bleeding. [facility] Medical History Sleep apnea, obstructive Asthma Atrial fibrillation Surgical History History of knee surgery History of appendectomy Family History Other Adopted Social History Household Members: Family Housing: Apartment Do you presently have visiting nurse or other home services: No Alcohol intake: current Alcohol intake frequency: holidays/special occasions only Comment: Socially Patient Tobacco Use Status: Former Tobacco user Cigarette Packs Per Day: 0.5 Years Smoked: 15 +/- e-Cigarette/Vaping Use: Never Used Second Hand Smoke Exposure: Yes service: No Current occupational status: employed 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 Cognitive needs: No Hearing needs: No Vision needs: No Review of Systems Const Denies chills, Denies fatigue, Denies fever(s), Denies frequent falls, Denies weakness, Denies weight gain and Denies weight loss ENT Denies dizziness Card Denies chest pain, Denies leg edema, Denies lightheadedness, Denies palpitations, Denies dyspnea and Denies dyspnea on exertion Resp Denies cough, Denies dyspnea and Denies dyspnea on exertion GI Denies hematochezia Musc Denies abnormal gait, Denies muscle weakness, Denies numbness, Denies radiating pain into limb and Denies tingling Neuro Denies abnormal gait, Denies dizziness, Denies frequent falls, Denies numbness, Denies tingling and Denies weakness Endo Denies fatigue and Denies palpitations Physical Exam Vital Signs: Last Vital Signs Pulse 60 03/31/25 13:16 BP 120/82 03/31/25 13:16 BMI result Body Mass Index 51.3 Const General: cooperative, healthy appearing, comfortable and no acute distress Orientation/consciousness: patient oriented x3 HEENT Head: Yes normal to inspection Neck Neck: Yes normal visual inspection, Yes trachea midline and Yes supple Chest Chest palpation & inspection: normal inspection of the chest Resp Effort & Inspection: normal respiratory effort Auscultation: clear to auscultation bilaterally, no crackles, no rales, no rhonchi and no wheezes Cardio Jugular venous distension: no JVD Palpation: normal PMI Rate: regular rate Rhythm: regular rhythm Heart sounds: S1 normal heart sound present, S2 normal heart sound present, no click, no gallops, no murmurs and no rubs Peripheral pulses: Peripheral pulses 2+ throughout GI Inspection: Yes normal to inspection Palpation (GI): Soft to palpation Auscultation: normal bowel sounds Skin General skin exam: no rashes or lesions noted Neuro General: patient oriented x3 Extrem General: Yes normal to inspection, No no pedal edema and No calf tenderness Psych Appearance: grossly normal Mental Status: mental status grossly normal Speech and movement: Normal speech and movement present Office Procedures EKG Details: EKG today showed normal sinus rhythm, rate 60 beats per minute, [place], [place]. [id number], Complete Assessment & Plan Assessment & Plan (1) Dizziness: Code(s): R42 - Dizziness and giddiness Category: Medical (2) Atrial fibrillation: Comment: Code(s): I48.91 - Unspecified atrial fibrillation Category: Medical Qualifiers: Atrial fibrillation type: paroxysmal Qualified Code(s): I48.0 - Paroxysmal atrial fibrillation (3) Morbid obesity: Code(s): E66.01 - Morbid (severe) obesity due to excess calories Category: Medical Plan Patient with a history of AFib who underwent cardioversion and is on flecainide therapy. Continue flecainide and metoprolol therapy. Continue Eliquis for full anticoagulation approach. No reported signs of bleeding. Patient states that she gets some palpitations when she is drinking otherwise denies any palpitations with the symptom of dizziness. Given her reports of dizziness, patient will undergo a Holter study to look at AFib recurrence. We will also get an echo to look at LV systolic and diastolic dysfunction. Previously, patient had been on Wegovy for weight loss however due to insurance issues patient stopped being on it and has gained all her weight back. Patient is planning to go for a weight loss surgery with Dr. Theresa henning in the near future. Advised heart healthy diet, regular exercise, losing weight, med compliance, avoiding caffeinated beverages or stimulants like alcohol, and management of vascular risk factors. Patient will keep her follow up with Dr. Noguera. In the interim, patient will call the office with any concerns or change in symptoms. This note was generated using voice recognition software. While every effort has been made to ensure accuracy and proper general manager, there may be occasional errors that could affect the content or meaning of the described symptoms. Orders: Orders ECG 7 day holter monitor Today R42 - Dizziness and giddiness CA echo transthoracic complete Today R42 - Dizziness and giddiness AMB EKG-In Office Today I48.0 - Paroxysmal atrial fibrillation Coding Level of Care Code Est Pt Level 4 (68453) Complex EM visit Add On G2211 Diagnoses Dizziness R42 Atrial fibrillation I48.0 Atrial fibrillation type: paroxysmal Morbid obesity E66.01 CPT Codes EKG - CPT: 39604-[id number], Complete ([id number]) Time Spent (min) 31 Comment Time spent in reviewing the chart, test results, assessment, counseling and documentation.
[2025-03-31 13:16] VITALS: BP 120/82; PULSE 60; BMI 51.3
== END 2025-03-31 13:37 | disposition home or self-care (01) ==
LOC: HO.HCS 13:01
DX: R42 Dizziness and giddiness (principal); I48.0 Paroxysmal atrial fibrillation; E66.01 Morbid (severe) obesity due to excess calories
CPT/HCPCS: 93010; 99214

== ENCOUNTER 2025-04-13 15:24 | Outpatient (AMB) | payer OTHER, SELFPAY ==
[2025-04-13 15:31] VITALS: BP 120/70; PULSE 76; RESP 18; O2SAT 96; BMI 50.8
--- NOTE | 2025-04-13 15:31 | A.OFFPC_ITS ---
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 Required: No Accompanied by: Self / Same As Patient Allergies No Known Allergies (No Known Allergies*) Allergy (Verified 04/13/25 15:50) Medication List - Last Reconciled 04/13/25 by Olga Bernard MD acetaminophen (Tylenol) 650 mg (2 x 325 mg) PO Q4H PRN albuterol-budesonide 90-80 mcg/actuation 2 inhalations inhalation DAILY PRN apixaban (Eliquis) 5 mg PO BID benzonatate 100 mg PO BID PRN flecainide 50 mg PO BID furosemide (Lasix) 20 mg PO DAILY PRN levonorgestrel (Mirena) intrauterine metoprolol succinate ER 25 mg PO DAILY Tobacco use date assessed: 04/13/25 Dental Screening Dental Screen Date: 04/13/25 Did you have a dental visit in the last 12 months?: No Did you have a dental problem in the last 6 months where you did not have access to dental care?: No Was dental information given to patient?: Patient has dentist HPI HPI Comments History of Present Illness Details The patient is a 49-year-old female presenting with a productive cough. The cough began approximately 10 days ago and has been persistent since its onset. There is no associated fever reported. The patient also reports stress urinary incontinence, which she attributes to the coughing episodes. She has attempted cexy-zvt-mzpgehc remedies without significant relief. The patient has a history of atrial fibrillation and is on chronic anticoagulation therapy. [facility] Medical History (Updated 04/13/25 @ 16:06 by Olga Bernard MD) Sleep apnea, obstructive Asthma Atrial fibrillation Surgical History History of knee surgery History of appendectomy Family History Other Adopted Social History Household Members: Family Housing: Apartment Do you presently have visiting nurse or other home services: No Alcohol intake: current Alcohol intake frequency: holidays/special occasions only Comment: Socially Patient Tobacco Use Status: Former Tobacco user Cigarette Packs Per Day: 0.5 Years Smoked: 15 +/- Packs Per Year: 0 e-Cigarette/Vaping Use: Never Used Second Hand Smoke Exposure: Yes service: No Current occupational status: employed 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 1. Little interest or pleasure in doing things: not at all 2. Feeling down, depressed, or hopeless: not at all 3. Trouble falling or staying asleep, or sleeping too much: not at all 4. Feeling tired or having little energy: not at all 5. Poor appetite or overeating: not at all 6. Feeling bad about yourself - or that you are a failure or have let yourself or your family down: not at all 7. Trouble concentrating on things, such as reading the newspaper or watching television: not at all 8. Moving or speaking so slowly that other people could have noticed. Or the opposite - being so fidgety or restless that you have been moving around a lot more than usual: not at all 9. Thoughts that you would be better off or of hurting yourself in some way: not at all Total score: 0 Depression Screening Interpretation: Negative Depression Screening Done: Yes 05282 - PHQ-9 Billing: Yes Source: Developed by Drs. Ángel Faria, Estrella Jason, Carlos Manuel Henderson and colleagues, with an educational gabby from [employer]. Thrive Questionnaire Date Thrive assessed: 04/13/25 I am a: Patient What is your living situation today?: I have a steady place to live Within the past 12 months, did the food you bought not last and you didn't have the money to get more?: I choose not to answer this question Within the past 12 months, did you worry whether your food would run out before you got money to buy more?: I choose not to answer this question Do you have trouble paying for medicines?: I choose not to answer this question Do you have trouble getting transportation to medical appointments?: I choose not to answer this question Do you have trouble paying your heating and electricity bill?: I choose not to answer this question Do you have trouble taking care of your child, family member or friend?: I choose not to answer this question Do you have trouble with day-to-day activities such as bathing, preparing meals, shopping, managing finances, etc.?: I choose not to answer this question Are you currently unemployed and looking for a job?: I choose not to answer this question Are you interested in more education?: I choose not to answer this question Please select the resources that you would like help with: None Currently or been in a relationship where the following occur: I choose not to answer THRIVE Score: 0 AUDIT C Alcohol Use Questionnaire (AUDIT-C) 1. How often do you have a drink containing alcohol?: Monthly or less 2. How many drinks containing alcohol do you have on a typical day when you are drinking?: 1 or 2 3. How often do you have six or more drinks on one occasion?: Never Total Score: 1 Score Reviewed/Action Taken: No ILDA-7 AMB Questionnaire ILDA-7 Date ILDA - 7 assessed: 04/13/25 Feeling nervous, anxious, or on edge: 0 = Not at all Not being able to stop or control worryin = Not at all Worrying too much about different things: 0 = Not at all Trouble relaxin = Not at all Being so restless that it is hard to sit still: 0 = Not at all Becoming easily annoyed or irritable: 0 = Not at all Feeling afraid as if something awful might happen: 1 = Several days Total ILDA-7 score (0-4 normal; 5-9 mild; 10-14 moderate; 15-21 severe): 1 Source: Developed by Drs. Ángel Faria, Estrella Jason, Carlos Manuel Henderson and colleagues, with an educational gabby from [employer]. ILDA-7 Assessment Billing ILDA-7 Assessment Tool: ILDA-7 Assessment 67718 Review of Systems Const All systems reviewed & are unremarkable except as noted in HPI and below Card Denies chest pain at rest, Denies chest pain with activity, Denies edema, Denies irregular heart rhythm, Denies claudication, Denies dyspnea, Denies dyspnea on exertion, Denies orthopnea, Denies paroxysmal nocturnal dyspnea and Denies slow heart rate Resp Denies cough, Denies dyspnea and Denies dyspnea on exertion Physical exam (Primary Care) Vital Signs: Last Vital Signs Pulse 76 04/13/25 15:31 Resp 18 04/13/25 15:31 BP 120/70 04/13/25 15:31 Pulse Ox 96 04/13/25 15:31 Oxygen Delivery Method Room Air 04/13/25 15:31 BMI result Body Mass Index 50.8 BMI Assessment/Plan discussion: High BMI High, discussed plan: lifestyle, weight reduction, dietary and physical activity Tobacco/Smoking Status: Tobacco use Status Tobacco use date assessed 04/13/25 04/13/25 15:40 Patient Tobacco Use Status Former Tobacco user 04/13/25 15:40 e-Cigarette/Vaping Use Never Used 04/13/25 15:40 PHQ-9: PHQ-9 Score PHQ-9: Total score 0 04/13/25 15:40 Depression Screening Interpretation: Negative Thrive Assessment: Date of Thrive Assessment Date Thrive assessed 04/13/25 04/13/25 15:40 Currently or been in a relationship where the following occur: I choose not to answer Resp Effort & Inspection: Actively coughing Auscultation: rhonchi Cardio Jugular venous distension: no JVD Rate: regular rate Rhythm: regular rhythm Heart sounds: S1 normal heart sound present and S2 normal heart sound present Extrem General: Yes full ROM Coding Level of Care Code Est Pt Level 4 (83369) Complex EM visit Add On G2211 Diagnoses Bronchitis J40 Atrial fibrillation I48.0 Atrial fibrillation type: paroxysmal Primary stress urinary incontinence N39.3 Morbid obesity E66.01 Additional Codes PHQ-9 - 62185 - PHQ-9 Billing: Yes ([id number]) ILDA-7 Assessment Billing - ILDA-7 Assessment Tool: ILDA-7 Assessment 95621 ([id number]) Time Spent (min) 20 Assessment & Plan Assessment & Plan (1) Bronchitis: Code(s): J40 - Bronchitis, not specified as acute or chronic Category: Medical (2) Atrial fibrillation: Comment: Code(s): I48.91 - Unspecified atrial fibrillation Category: Medical Qualifiers: Atrial fibrillation type: paroxysmal Qualified Code(s): I48.0 - Paroxysmal atrial fibrillation (3) Primary stress urinary incontinence: Code(s): N39.3 - Stress incontinence (female) (male) Category: Medical (4) Morbid obesity: Code(s): E66.01 - Morbid (severe) obesity due to excess calories Category: Medical Plan Start Z-Arias. Chest x-ray ordered. COVID, flu and RSV test ordered. Orders: Orders XR chest 2V Today J40 - Bronchitis, not specified as acute or chronic Medications: New azithromycin Take 2 tabs first day, then 1 tab for the next 4 days 250 mg PO DAILY 6 tabs 0RF 5 days Refilled benzonatate 100 mg PO BID PRN 20 caps 0RF cough
== END 2025-04-13 16:14 | disposition home or self-care (01) ==
LOC: HO.HMCH 15:25
PROVIDERS: Visit Provider Internal Medicine
DX: I48.0 Paroxysmal atrial fibrillation (principal); E66.01 Morbid (severe) obesity due to excess calories; Z68.43 Body mass index [BMI] 50.0-59.9, adult; J40 Bronchitis, not specified as acute or chronic; N39.3 Stress incontinence (female) (male)

== ENCOUNTER 2025-04-13 15:24 | Outpatient (REF) | payer OTHER, SELFPAY ==
--- NOTE | ~2025-04-13 | XR_ITS ---
EXAMINATION: XR CHEST CLINICAL INFORMATION: J40 - Bronchitis, not specified as acute or chronic COMPARISON: 06/17/2024. TECHNIQUE: 2 views of the chest were obtained. FINDINGS: The cardiac, hilar, and mediastinal contours are normal. The lungs are clear bilaterally. There is no pneumothorax or pleural effusion. There is no focal osseous or soft tissue abnormality. XR/XR chest 2V IMPRESSION: No active pulmonary disease. Electronically signed by: Hero Nice MD 04/13/2025 04:41 PM EDT
== END 2025-04-13 15:25 | disposition home or self-care (01) ==
LOC: HO.XRAY 15:24
PROVIDERS: Visit Provider Internal Medicine
DX: J40 Bronchitis, not specified as acute or chronic (principal); R05.9 Cough, unspecified; N39.3 Stress incontinence (female) (male); I48.91 Unspecified atrial fibrillation; I48.0 Paroxysmal atrial fibrillation; E66.01 Morbid (severe) obesity due to excess calories; Z68.43 Body mass index [BMI] 50.0-59.9, adult; Z79.01 Long term (current) use of anticoagulants
CPT/HCPCS: 71046; 96127; 99212

== ENCOUNTER → 2025-04-13 16:25 | Outpatient (BNV) | payer OTHER, SELFPAY | PROVIDERS: Visit Provider Radiology Diagnostic Radiology | DX: R05.9 Cough, unspecified (principal) | CPT/HCPCS: 71046 ==

== ENCOUNTER 2025-04-28 11:26 | Outpatient (REF) | payer OTHER, SELFPAY ==
--- NOTE | ~2025-04-28 | XR_ITS ---
EXAMINATION: XR CHEST CLINICAL INFORMATION: E66.01 - Morbid (severe) obesity due to excess calories COMPARISON: 04/13/2025. TECHNIQUE: 2 views of the chest were obtained. FINDINGS: The cardiac, hilar, and mediastinal contours are normal. The lungs are clear bilaterally. There is no pneumothorax or pleural effusion. There is no focal osseous or soft tissue abnormality. XR/XR chest 2V IMPRESSION: Normal chest. Electronically signed by: Hero Nice MD 04/28/2025 01:04 PM EDT
--- NOTE | 2025-04-28 11:36 | ECG_ITS ---
Test Reason : e66.01 Blood Pressure : */* mmHG Vent. Rate : 57 BPM Atrial Rate : 57 BPM P-R Int : 166 ms QRS Dur : 94 ms QT Int : 426 ms P-R-T Axes : 50 25 59 degrees QTcB Int : 414 ms Sinus bradycardia Otherwise normal ECG When compared with ECG of 26-Apr-2023 16:49, Nonspecific T wave abnormality no longer evident in Inferior leads Referred By: Kristofer Cardenas Electronically Signed By: Fly Noguera
[2025-04-28 11:56] LABS: MANUAL DIFF FLAG NO
[2025-04-28 12:47] LABS: Hematocrit 40.8 % (37.0-47.0); Hemoglobin 13.8 g/dl (12.0-16.0); Imm Gran Abs Auto 0.02 X10*3/uL (0.00-0.03); Imm Gran Pct Auto 0.3 % (0.0-0.4); Lymphocytes Absolute Auto 2.5 X10*3/uL (1.2-4.9); Mean Corpuscular HGB Conc 33.8 g/dl (31.0-35.0); Mean Corpuscular Hemoglobin 28.7 pg (27.0-33.0); Mean Corpuscular Volume 84.8 fL (80.0-98.0); NRBC Abs Auto 0.000 X10*3/uL (0.0-0.012); NRBC Pct Auto 0.0 /100WBC (0.0-0.2); Platelet Count 270 X10*3/uL (160-400); Red Blood Count 4.81 X10*6/uL (4.20-5.50); White Blood Count 7.1 X10*3/uL (4.8-10.8)
[2025-04-28 12:52] LABS: Hemoglobin A1C 146.6749 umol/L; Total Hemoglobin (HGBA1C) 3603.4048 umol/L
[2025-04-28 13:18] LABS: Alanine Aminotransferase 37 U/L (0-31); Albumin Level 4.4 g/dL (3.5-5.0); Alkaline Phosphatase 61 U/L (39-117); Anion Gap 11 (12-20); Aspartate Amino Transferase 32 U/L (5-31); Blood Urea Nitrogen 19 mg/dL (9-16); Calcium 8.7 mg/dL (8.4-10.2); Carbon Dioxide 23 mmol/L (22-29); Chloride 108 mmol/L (96-108); Cholesterol 182 mg/dL (<200); Estimated Glomerular Filt Rate > 60; HDL Cholesterol 34 mg/dL (>40); Iron 89 mcg/dL (30-160); Percent Iron Saturation 33 % (15-50); Potassium 4.0 mmol/L (3.3-5.1); Sodium 138 mmol/L (135-145); Total Iron Binding Capacity 269 mcg/dL (228-428); Total Protein 7.2 g/dL (6.5-8.0); Triglycerides 96 mg/dL (<150); Unsaturated Iron Binding 180 ug/dL
[2025-04-28 13:35] LABS: Ferritin 270 ng/mL (10-250)
[2025-04-28 13:43] LABS: Folate 8.1 ng/mL (> or = 4.0); Vitamin B12 403 pg/mL (200-900)
== END 2025-04-28 11:27 | disposition home or self-care (01) ==
LOC: HO.LAB 11:26
PROVIDERS: Visit Provider Surgery
DX: I48.0 Paroxysmal atrial fibrillation (principal); E66.01 Morbid (severe) obesity due to excess calories; E78.00 Pure hypercholesterolemia, unspecified
CPT/HCPCS: 36415; 71046; 80053; 80061; 82306; 82607; 82728; 82746; 83036; 83525; 83540; 84425; 84443; 84590; 84630; 85025; 86140; 93005

== ENCOUNTER → 2025-04-28 11:36 | Outpatient (BNV) | payer OTHER, SELFPAY | PROVIDERS: Visit Provider Internal Medicine Cardiovascular Disease | DX: R00.1 Bradycardia, unspecified (principal) | CPT/HCPCS: 93010 ==

== ENCOUNTER → 2025-04-28 11:57 | Outpatient (BNV) | payer OTHER, SELFPAY | PROVIDERS: Visit Provider Radiology Diagnostic Radiology | DX: E66.01 Morbid (severe) obesity due to excess calories (principal) | CPT/HCPCS: 71046 ==

== ENCOUNTER 2025-05-17 14:09 | Outpatient (AMB) | payer OTHER, SELFPAY ==
--- NOTE | 2025-05-17 14:05 | MHC.WMTHER ---
Intake Intake Visit Reasons: VIDEO BH Intake Allergies No Known Allergies (No Known Allergies*) Allergy (Verified 04/13/25 15:50) [facility] Medical History Sleep apnea, obstructive Asthma Atrial fibrillation Surgical History History of knee surgery History of appendectomy Family History Other Adopted Social History Household Members: Family Housing: Apartment Do you presently have visiting nurse or other home services: No Alcohol intake: current Alcohol intake frequency: holidays/special occasions only Comment: Socially Patient Tobacco Use Status: Former Tobacco user Cigarette Packs Per Day: 0.5 Years Smoked: 15 +/- e-Cigarette/Vaping Use: Never Used Second Hand Smoke Exposure: Yes service: No Current occupational status: employed 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 She previously participated in the weight loss program from April 2023 to February 2024. In March 2025, she re-enrolled with the intention of starting GLP-1 therapy; however, the surgeon recommended bariatric surgery instead. The patient is currently uncertain about pursuing surgery but is seeking support to lose weight, develop a healthier relationship with food, and make more mindful choices independently. She reports ongoing struggles with food noise ?persistent thoughts and preoccupations about food. The patient shares that she enjoys being a larger woman, traveling, and experiencing different cuisines. However, her primary motivation for weight loss is to discontinue heart medications and address other health concerns. She also expresses some fear that weight loss may impact her ability to enjoy these aspects of her life. Presenting Concerns Referral Source WMP-Provider Reason for referral Completion of behavioral health assessment as part of process for weight-loss surgery. Precipitating Event Obesity Social History Family history and relationship PT has been in a long-term relationship for about 21 years, they have 1 18 y/o daughter child together and PT has a child from a previous relationship who is 28. PT was adopted, she has no information about bio-parents or history, adopted parents are , and she has no siblings. PT reported a difficult childhood with marked trauma. PT reports she is close to her 's family. Parental/Familial branch lead obligations 18-year-old daughter who lives at home. Developmental history and status None reported. Social support , 2 daughters, some friends. 's grandmother and aunt. Community support Therapist, PCP Cheondoism/Spirituality None. Cultural/Ethnic information . Legal Involvement and History Current or historical involvement with the legal system? None reported. Education Highest grade completed HS. Some college - Has a Teacher certificate Preferred learning style Learn by doing Currently enrolled in educational program? No Interested in further educational program? 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 ) Wants help to find employment? No Meaningful activities Travel, photography, family activities. Financial Situation Describe current financial situation Occasional struggle Financial assistance? None Service Service? No Mental Health and Addiction Treatment Current/Past substance abuse? No Comments Alcohol: socially, 1-2 x month when drinks she has 2-5 drinks (seltzers) Cigarettes/Tobacco: none. Cannabis/Edibles: none. Current/Past addictive behavior concerns? No Psychiatric history The patient currently attends counseling sessions every two weeks and has participated in therapy for most of her life. She reports a history of depressive symptoms and trauma-related symptoms. She is not currently taking any psychiatric medications; however, she was prescribed antidepressants over 20 years ago but discontinued them due to adverse effects. The patient denies any history of inpatient psychiatric hospitalization. She did spend a few days in respite care in her 20s due to safety concerns, but there is no history or current concern regarding suicidal ideation, suicide attempts, self-harm, or harm to others. If the patient chooses to proceed with surgery, her therapist will be required to complete the behavioral health (BH) form. Medical and Physical Health Summary Additional Medical History not covered in history None aditional. Sexual History concerns None reported. Physical exam in the last year? Yes Pain Screening Current pain? No Pain in the last few months? Yes Comments Knee, back and shoulder pain, due to arthritis. Medications Is the patient compliant with medications? Yes Does the patient have Aguayo Guardian in place? Not applicable Does the patient use complimentary health approaches? No Trauma/Abuse History History of trauma? Yes (MALENA score: 8 - PT disclosed severe trauma in childhood.) Questionnaires PHQ-9 Over the last 2 weeks, how often have you been bothered by any of the following problems? 1. Little interest or pleasure in doing things: several days 2. Feeling down, depressed, or hopeless: several days 3. Trouble falling or staying asleep, or sleeping too much: more than half the days 4. Feeling tired or having little energy: nearly every day 5. Poor appetite or overeating: more than half the days 6. Feeling bad about yourself - or that you are a failure or have let yourself or your family down: nearly every day 7. Trouble concentrating on things, such as reading the newspaper or watching television: not at all 8. Moving or speaking so slowly that other people could have noticed. Or the opposite - being so fidgety or restless that you have been moving around a lot more than usual: not at all 9. Thoughts that you would be better off or of hurting yourself in some way: not at all Total score: 12 Depression Screening Interpretation: Positive (From new PT pack completed on 01/15/2025 - New one will be administered at next visit. ) Depression Screening Follow-up: Existing condition and In treatment Depression Screening Done: Yes Source: Developed by Drs. Ángel Faria, Estrella Jason, Carlos Manuel Henderson and colleagues, with an educational gabby from [employer]. Assessment & Plan Assessment & Plan (1) Trauma and stressor-related disorder: Code(s): F43.9 - Reaction to severe stress, unspecified (2) Pre-bariatric surgery psychological evaluation: Code(s): Z71.89 - Other specified counseling Plan The patient was not cleared today as the assessment remains incomplete. She will return to continue the evaluation, at next visit BES will be reviewed and new PHQ-9 administered; however, she expressed confidence in her decision to forgo surgery and instead pursue medical weight loss (MWL) options. The patient was advised to discuss her preferences and available options with the surgeon. Additionally, her behavioral health provider will need to complete the required behavioral health clearance form. The next appointment is scheduled for 06/03/2025 at 2:00 pm via video. Telehealth Telehealth Telehealth Platform: [employer] Location of provider rendering services: other (Home office. [place], [place]) Location of patient: address on file Patient Identification confirmed using: Name, : Yes Telehealth method: voice only Patient verbally consented to treatment: Yes Patient verbally consented to billing insurance company: Yes Patient informed of any privacy concerns related to visit: Yes Minutes spent on Phone/Video with Pt.: 70 Coding Level of Care Code New Pt Tele Psy Diag Eval (30681) Patient Type New Diagnoses Trauma and stressor-related disorder F43.9 Pre-bariatric surgery psychological evaluation Z71.89 Time Spent (min) 70
== END 2025-05-17 15:13 | disposition home or self-care (01) ==
LOC: HO.HBST 14:09
PROVIDERS: Visit Provider Counselor Mental Health
DX: F43.9 Reaction to severe stress, unspecified (principal); Z71.89 Other specified counseling
CPT/HCPCS: 90791

== ENCOUNTER 2025-05-18 22:09 | Emergency (ER) | payer OTHER, SELFPAY ==
--- NOTE | ~2025-05-18 | CT_ITS ---
CLINICAL HISTORY: upper abd pain, vomiting CT abdomen and pelvis with contrast Comparison: CT/SR - CT ABDOMEN PELVIS WITHOUT IV CONTRAST - 04/26/23 15:23 EDT Findings: The lung bases are clear. The liver, gallbladder, pancreas, spleen, adrenal glands, and kidneys are unremarkable. Patient is status post appendectomy. There is fluid throughout most of the colon suggestive of diarrhea. There is no evidence of colitis. There are borderline dilated fluid-filled small bowel loops without obstruction. There is no free fluid or free air. There is an intrauterine device. The ovaries are unremarkable. The bladder is unremarkable. There are no enlarged lymph nodes. The aorta and IVC appear normal. There is no fracture or suspicious lytic or sclerotic lesion. IMPRESSION: 1. Fluid throughout most of the colon suggestive of a diarrheal illness. No evidence of colitis. 2. Borderline dilated fluid-filled small bowel loops which is a nonspecific finding, but can be seen in the setting of gastroenteritis. There is no bowel obstruction. This document has been electronically signed by: Gilles Kenny MD on 05/19/2025 04:10:55
[2025-05-18 22:17] VITALS: BP 154/79; PULSE 67; RESP 15; TEMP 36.5; O2SAT 99; BMI 50.6
[2025-05-18 22:38] LABS: MANUAL DIFF FLAG NO
[2025-05-18 22:40] LABS: Hematocrit 41.4 % (37.0-47.0); Hemoglobin 14.2 g/dl (12.0-16.0); Imm Gran Abs Auto 0.02 X10*3/uL (0.00-0.03); Imm Gran Pct Auto 0.3 % (0.0-0.4); Lymphocytes Absolute Auto 2.6 X10*3/uL (1.2-4.9); Mean Corpuscular HGB Conc 34.3 g/dl (31.0-35.0); Mean Corpuscular Hemoglobin 28.9 pg (27.0-33.0); Mean Corpuscular Volume 84.1 fL (80.0-98.0); NRBC Abs Auto 0.000 X10*3/uL (0.0-0.012); NRBC Pct Auto 0.0 /100WBC (0.0-0.2); Platelet Count 234 X10*3/uL (160-400); Red Blood Count 4.92 X10*6/uL (4.20-5.50); White Blood Count 6.9 X10*3/uL (4.8-10.8)
[2025-05-18 22:54] LABS: Alanine Aminotransferase 33 U/L (0-31); Albumin Level 4.2 g/dL (3.5-5.0); Alkaline Phosphatase 65 U/L (39-117); Anion Gap 13 (12-20); Aspartate Amino Transferase 32 U/L (5-31); Blood Urea Nitrogen 18 mg/dL (9-16); Calcium 9.1 mg/dL (8.4-10.2); Carbon Dioxide 23 mmol/L (22-29); Chloride 108 mmol/L (96-108); Creatinine Clr Calc Pharmacy 143.7; Estimated Glomerular Filt Rate > 60; Lipase 17 U/L (8-78); Potassium 4.0 mmol/L (3.3-5.1); Sodium 140 mmol/L (135-145); Total Protein 7.0 g/dL (6.5-8.0)
[2025-05-18 23:02] LABS: Troponin-I High Sensitivity < 2.7 ng/L (<3.5-17.0)
[2025-05-19 00:43] VITALS: BP 147/66; PULSE 66; RESP 20; TEMP 36.7; O2SAT 97
--- NOTE | 2025-05-19 00:48 | ED_ITS ---
HPI - Abdominal Pain General Chief Complaint: Abdominal Pain Stated Complaint: abd pain vomiting Time Seen by Provider: 05/19/25 00:48 Source: patient Mode of arrival: ambulatory Limitations: no limitations History of Present Illness ED Provider: Dr. Karen Marino HPI narrative: 50-year-old female with history of atrial fibrillation on flecainide and Eliquis, hypertension presenting with epigastric abdominal pain and vomiting ongoing for the last 24 hours or so. States that she went to bed on Saturday night with severe epigastric pain after eating dinner. Admits when she woke up in the morning, she was able to tolerate oral intake and has been eating small meals throughout the day yesterday however, tonight after dinner she began to have the severe, stabbing epigastric pain again and had several episodes of vomiting. No reported diarrhea. No hematochezia or melena. No hemoptysis or hematemesis. No reported fever. Had been feeling well prior to this. No questionable food intake. No history of abdominal surgeries. Related Data Home Medications ?Medication ?Instructions ?Recorded ?Confirmed levonorgestrel (Mirena) intrauterine 07/12/21 albuterol 90 mcg-budesonide 80 2 inh inhalation DAILY PRN 04/15/24 04/13/25 mcg/actuation HFA aerosol inhaler Shortness Of Breath Or Wheezing furosemide 20 mg tablet (Lasix) 20 mg PO DAILY PRN Jayson ma 04/29/24 04/13/25 Previous Rx's ?Medication ?Instructions ?Recorded acetaminophen 325 mg capsule 650 mg (2 x 325 mg) PO Q4 H PRN 03/29/24 (Tylenol) pain #30 caps apixaban 5 mg tablet (Eliquis) 5 mg PO BID #180 tabs 1 flecainide 50 mg tablet 50 mg PO BID #180 tabs 10/26 metoprolol succinate 25 mg 25 mg PO DAILY #90 tabs tablet,extended release 24 hr azithromycin 250 mg tablet 250 mg PO DAILY 5 days #6 t abs 04/13/25 benzonatate 100 mg capsule 100 mg PO BID PRN cough #20 caps 04/13/25 cholecalciferol (vitamin D3) 125 125 mcg PO DAILY #90 caps 04/29/25 mcg (5,000 unit) capsule mecobalamin (vitamin B12) 1,000 1,000 mcg sublingual D AILY #90 tabs 04/29/25 mcg disintegrating tablet,sublingual dicyclomine 20 mg tablet 20 mg PO TID #10 tabs ondansetron 4 mg disintegrating 4 mg PO Q8H PRN nausea and 05/19/25 tablet vomiting #10 tabs Allergies Allergy/AdvReac Type Severity Reaction Status Date / Time No Known Allergies (No Known Allergy Verified 05/18/25 22:19 Allergies*) Review of Systems Review of Systems as per HPI, full review of systems performed and negative but for the above mentioned pertinent positives and negatives. COUNT INCLUDES THE [facility] Past Medical History Medical History Sleep apnea, obstructive Asthma Atrial fibrillation Surgical History History of knee surgery History of appendectomy Family History Family History Other Adopted Social History Social History Household Members: Family Housing: Apartment Do you presently have visiting nurse or other home services: No Alcohol intake: current Alcohol intake frequency: holidays/special occasions only Comment: Socially Patient Tobacco Use Status: Former Tobacco user Cigarette Packs Per Day: 0.5 Years Smoked: 15 +/- e-Cigarette/Vaping Use: Never Used Second Hand Smoke Exposure: Yes Advance Directives: No Do you have a plan to hurt others: No Plan service: No Current occupational status: employed 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 SKIN: Normal skin color for ethnicity, warm, dry, no rashes noted. HEENT: Normocephalic, atraumatic, no stridor, dry mucous membranes, dentition intact, EOMI, PERRLA. NECK: Soft, supple, full ROM, midline structures nontender, no step-offs, no deformities, no lymphadenopathy. CHEST: Heart regular rhythm, no murmurs, symmetric chest rise and fall. PULMONARY: Clear to auscultation bilaterally, diminished at the bases, no labored breathing, no wheezes/rhales/rhonchi. ABDOMINAL: Soft, nondistended, epigastric tenderness to palpation without rebound or guarding, quiet bowel sounds in all quadrants. : Deferred. MUSCULOSKELETAL: Normal tone, full range of motion, no deformities, no peripheral edema. NEURO: Alert and oriented x3, CN II through XII intact, equal strength and sensation bilateral upper and lower extremities, no focal neurologic deficits. PSYCHIATRIC: Flat affect, fluid speech, good eye contact and appropriate demeanor. Vital Signs: Vital Signs - 24 hr 05/18/25 22:17 05/19/25 00:43 05/19/25 02:53 Temperature 97.7 F 98.0 F 98.1 F Pulse Rate 67 66 61 Respiratory Rate 15 20 16 Blood Pressure 154/79 H 147/66 H 145/80 H Pulse Oximetry 99 97 96 Oxygen Delivery Method Room Air Room Air Room Air BMI result Body Mass Index 50.6 Medical Decision Making Medical Decision Making [facility] Narrative: This patient presents today with a chief complaint of abdominal pain and vomiting. Differential diagnosis for this patient is broad. It includes appendicitis, cholecystitis, bowel obstruction, peptic ulcer disease, pyelonephritis, vascular pathology, among many others. A broad-based workup based on history and physical examination was obtained. 3:06 AM 05/19/2025 (Dr. Karen Marino, D.O.) patient feeling improved after Haldol and fluids. Plan for CT of the abdomen and pelvis to evaluate for emergent pathology. Patient resting comfortably at this time with normal vital signs. 5:00 AM 05/19/2025 (Dr. Karen Marino, D.O.) patient improving, resting comfortably. No further emesis. CT shows evidence of gastroenteritis. Using shared decision making, plan for discharge home to follow-up with primary care and/or specialist.? Patient understands and agrees with plan for discharge.? Discharged home in stable condition. Differential Diagnosis Differential Diagnoses: The differential diagnosis associated with the presentation includes (As above) Admission/Observation Consideration of admission/observation: Escalation of care including admission/observation considered Lab Data [facility] Lab Attestation statement: I reviewed the patient's lab results. 05/18/25 22:34 05/18/25 22:34 Labs: Lab Results 09/23/25 09/24/25 Range/Units 22:34 00:45 WBC 6.9 (4.8-10.8) X10*3/uL RBC 4.92 (4.20-5.50) X10*6/uL Hgb 14.2 (12.0-16.0) g/dl Hct 41.4 (37.0-47.0) % MCV 84.1 (80.0-98.0) fL MCH 28.9 (27.0-33.0) pg MCHC 34.3 (31.0-35.0) g/dl RDW 12.4 (11.0-16.0) % Plt Count 234 (160-400) X10*3/uL MPV 9.0 L (9.4-12.3) fL Immature Gran % (Auto) 0.3 (0.0-0.4) % Neut % (Auto) 50.3 (45-73) % Lymph % (Auto) 37.9 (20-40) % [place] % (Auto) 8.5 (2-11) % Eos % (Auto) 2.4 (0-4) % Baso % (Auto) 0.6 (0-2) % Lymph # (Auto) 2.6 (1.2-4.9) X10*3/uL [place] # (Auto) 0.6 (0.1-1.2) X10*3/uL Eos # (Auto) 0.2 (0.0-0.4) X10*3/uL Baso # (Auto) 0.0 (0.0-0.2) X10*3/uL Abs Immat Gran (auto) 0.02 (0.00-0.03) X10*3/uL Absolute Neuts (auto) 3.5 (2.0-8.3) x10*3/uL Absolute Nucleated RBC 0.000 (0.0-0.012) X10*3/uL Nucleated RBC % (auto) 0.0 (0.0-0.2) /100WBC Sodium 140 (135-145) mmol/L Potassium 4.0 (3.3-5.1) mmol/L Chloride 108 (96-108) mmol/L Carbon Dioxide 23 (22-29) mmol/L Anion Gap 13 (12-20) BUN 18 H (9-16) mg/dL Creatinine 0.73 (0.5-1.4) mg/dL Estim Creat Clear Calc 143.7 Estimated GFR > 60 Random Glucose 109 (60-115) mg/dL Calcium 9.1 (8.4-10.2) mg/dL Total Bilirubin 0.5 (0.0-1.0) mg/dL AST 32 H (5-31) U/L ALT 33 H (0-31) U/L Alkaline Phosphatase 65 (39-117) U/L Troponin I High Sens < 2.7 (<3.5-17.0) ng/L Total Protein 7.0 (6.5-8.0) g/dL Albumin 4.2 (3.5-5.0) g/dL Lipase 17 (8-78) U/L Urine Color Yellow Urine Appearance Clear Urine pH 6.0 (5.0-9.0) Ur Specific [place] 1.020 (1.005-1.025) Urine Protein Negative (Neg-Trace) mg/dL Urine Glucose (UA) Negative (Negative) mg/dL Urine Ketones Negative (Negative) mg/dL Urine Blood Small (1+) H (Negative) Urine Nitrite Negative (Negative) Ur Leukocyte Esterase Negative (Negative) Urine RBC 3-5 H (0-2) /HPF Urine WBC 0-5 (0-5) /HPF Ur Squamous Epith Cells 0-2 (0-2) /HPF Urine Bacteria 1+ (None Seen) Hyaline Casts 0-2 (0-2) /LPF Independent Interpretation I performed an independent interpretation of an: EKG Interpretation: My independent interpretation of the ECG reveals normal sinus rhythm with rate of 64, normal axis, normal intervals, no ST elevations or depressions to suggest ischemic changes, relatively unchanged from previous on 04/28/2025. Radiology Impression Discussion of test interpretation with radiology: I have reviewed the radiologist's reading. External Record Review External record reviewed: Inpatient record and Office record Prescription Management I considered prescription management with: Pain Medication Chronic Conditions Patient?s care impacted by: Hypertension and Other (Atrial fibrillation) Medications Administered Discontinued Medications Generic Name Dose Route Start Last Admin Trade Name Freq PRN Reason Stop Dose Admin Diphenhydramine HCl 50 mg 05/19/25 02:03 05/19/25 02:17 Diphenhydramine Hcl 50 Mg/Ml Vial IVPUSH 05/19/25 02:04 50 mg ONCE ONE Administration Haloperidol Lactate 5 mg 05/19/25 01:27 05/19/25 01:33 Haloperidol Lactate 5 Mg/Ml Vial IVPUSH 05/19/25 01:28 5 mg STAT STA Administration Lactated Ringer's 1,000 mls @ 999 mls/hr 05/19/25 01:27 05/19/25 02:58 Lr IV 05/19/25 02:27 Infused .Q1H1M ONE Infusion Iohexol 85 ml 05/19/25 03:17 05/19/25 03:18 Iohexol 350 Mg/Ml 100 Ml Infus..Btl IV 05/19/25 03:18 85 ml ONCE ONE Administration Discharge Plan Discharge Clinical Impression: Gastroenteritis, Abdominal pain, acute, epigastric Patient Disposition: Home, Self-Care Instructions: Gastroenteritis (ED) Additional Instructions: Drink plenty of fluids over the next several days. Use Zofran for nausea. Use dicyclomine for abdominal cramping. Alternatively, you may try Tylenol and Motrin. Eat small meals feel it. Use the B.R.A.T diet. Return to the ER if things do not improve, you have worsening abdominal pain despite medications, you develop a fever greater than 100? or if you have any other new symptoms that concern you. Call 911 with any medical emergency. Prescriptions: New dicyclomine 20 mg tablet 20 mg PO TID Qty: 10 0RF ondansetron 4 mg tablet,disintegrating 4 mg PO Q8H PRN (Reason: nausea and vomiting) Qty: 10 0RF No Action Eliquis 5 mg tablet 5 mg PO BID Qty: 180 3RF metoprolol succinate 25 mg tablet extended release 24 hr 25 mg PO DAILY Qty: 90 3RF cholecalciferol (vitamin D3) 125 mcg (5,000 unit) capsule 125 mcg PO DAILY Qty: 90 0RF mecobalamin (vitamin B12) 1,000 mcg tablet,disintegrating 1,000 mcg sublingual DAILY Qty: 90 0RF Rx Instructions: place tablet under tongue and allow to dissolve for at least30 secs before swallowing acetaminophen [Tylenol] 325 mg capsule 650 mg PO Q4H PRN (Reason: pain) Qty: 30 0RF albuterol-budesonide 90-80 mcg/actuation HFA aerosol inhaler 2 inh inhalation DAILY PRN (Reason: Shortness Of Breath Or Wheezing) Mirena 20 mcg/24 hours (7 yrs) 52 mg intrauterine device intrauterine furosemide [Lasix] 20 mg tablet 20 mg PO DAILY PRN (Reason: Edema) flecainide 50 mg tablet 50 mg PO BID Qty: 180 3RF azithromycin 250 mg tablet 250 mg PO DAILY 5 Days Qty: 6 0RF Rx Instructions: Take 2 tabs first day, then 1 tab for the next 4 days benzonatate 100 mg capsule 100 mg PO BID PRN (Reason: cough) Qty: 20 0RF Print Language: Scottish
[2025-05-19 00:53] LABS: Appearance Urine Clear; Glucose Urine UA Negative (Negative); PH 6.0 (5.0-9.0); Specific Gravity - Urine 1.020 (1.005-1.025); UMIC TRIGGER UACC YES
--- NOTE | 2025-05-19 01:19 | ECG_ITS ---
Test Reason : QTC CHECK Blood Pressure : */* mmHG Vent. Rate : 64 BPM Atrial Rate : 64 BPM P-R Int : 170 ms QRS Dur : 96 ms QT Int : 404 ms P-R-T Axes : 27 -2 34 degrees QTcB Int : 416 ms Normal sinus rhythm Normal ECG When compared with ECG of 28-Apr-2025 11:41, No significant change was found Referred By: Karen Marino Electronically Signed By: Fly Noguera
[2025-05-19] MEDS: Lactated Ringers 1,000 ML 999 ML IV (01:34)
[2025-05-19 02:53] VITALS: BP 145/80; PULSE 61; RESP 16; TEMP 36.7; O2SAT 96
[2025-05-19] MEDS: iohexoL 350 MG/ML 100 ML INFUS..BTL 85 ML IV (03:18)
[2025-05-19 05:12] VITALS: BP 145/80; PULSE 61; RESP 16; TEMP 36.7; O2SAT 96
== END 2025-05-19 05:12 | disposition home or self-care (01) ==
PROVIDERS: Emergency Provider Emergency Medicine
DX: K52.9 Noninfective gastroenteritis and colitis, unspecified (principal); R10.13 Epigastric pain; R11.0 Nausea; Z79.01 Long term (current) use of anticoagulants; Z79.899 Other long term (current) drug therapy; Z87.891 Personal history of nicotine dependence
CPT/HCPCS: 36415; 74177; 80053; 81001; 83690; 84484; 85025; 93005; 96361; 96374; 96375; 99284; 99285; J1200; J1630; J7120; Q9967

== ENCOUNTER → 2025-05-19 01:19 | Outpatient (BNV) | payer OTHER, SELFPAY | PROVIDERS: Emergency Provider Emergency Medicine; Visit Provider Internal Medicine Cardiovascular Disease | DX: Z13.6 Encounter for screening for cardiovascular disorders (principal) | CPT/HCPCS: 93010 ==

== ENCOUNTER → 2025-05-19 03:03 | Outpatient (BNV) | payer OTHER, SELFPAY | PROVIDERS: Emergency Provider Emergency Medicine; Visit Provider Radiology Diagnostic Radiology | DX: R18.8 Other ascites (principal) | CPT/HCPCS: 74177 ==

== ENCOUNTER → 2025-07-14 15:02 | Outpatient (REF) | payer OTHER, SELFPAY ==
--- NOTE | 2025-07-14 15:04 | CA_ITS ---
Transthoracic Echocardiogram Patient (Last, First, Middle): Steph Neal, Gender: Female Date of : 1975 Age: 50 Procedure Date: 07/14/2025 Procedure Type: Transthoracic Echocardiogram Location: OP Height: 172.72 cm Weight: 151.5 kg BSA: 2.54 m2 Heart Rate: 63 bpm BP: 120 / 70 mmHg Car Builder: SB Referring MD: Lonnie Magallon NP Symptoms: R42 - Dizziness and giddiness, paroxysmal atrial fibrillation Study Quality: Adequate w contrast ECG Rhythm: Sinus Conclusions: - The left ventricular systolic function is normal. The calculated ejection fraction is 59% by biplane method. - No obvious valvular pathology seen on this study. Findings Procedure Information Contrast agent, definity, is being given per protocol without apparent complications. The quality of the study was technically difficult. The study quality is limited by patients body habitus. Left Ventricle Normal left ventricular cavity size. The left ventricular systolic function is normal. The calculated ejection fraction is 59% by biplane method. There is no evidence of regional wall motion abnormalities. Diastolic function is normal for age. Focal hypertrophy of basal septum. Right Ventricle Mildly increased right ventricular cavity size. There is normal right ventricular systolic function. Atria Both atria are normal in size. Aortic Valve The aortic valve was not well visualized. There is no aortic valve stenosis. There is no aortic valve regurgitation. Mitral Valve The mitral valve appears normal. There is no mitral valve regurgitation. There is no mitral valve stenosis. Pulmonic Valve The pulmonic valve is likely normal. Tricuspid Valve There is no tricuspid valve regurgitation. Tricuspid regurgitation envelope is inadequate for calculation of right ventricular systolic pressure. Great Vessels The asc aorta and aortic arch are normal in size. Venous The inferior vena cava was not well visualized. Pericardium/Pleural There is no evidence of pericardial effusion. Prior Study Comparison No significant change compared to prior study dated: 11/24/2020. Recommendations, Care & Conclusions No obvious valvular pathology seen on this study. Measurements 2D Linear Measurements LVOT Diam: 2.10 3.0+(-)1.3 cm 2D Systolic Function EF 4C: 55.20 >55% EF 2C: 61.20 >55% EF BiP: 58.70 >55% Mitral Valve MV Pk E: 1.06 MV PK A: 0.60 MV Decel Time: 200.00 E/A: 1.80 E'Lateral: 11.90 E'Medial: 7.62 E/E' Med: 13.90 E/E' Lat: 8.90 PHT: 58.00 MVA PHT: 3.79 Decel [place]: 5.30 Aortic Valve AoV Pk Michael: 1.74 AoV Mn Michael: 1.14 AoV VTI: 0.35 AoV Pk Grad: 12.00 Aov Mn Grad: 6.00 NAYELY Cont.VTI: 2.68 LVOT LVOT Pk Michael: 1.22 LVOT Mn Michael: 0.90 LVOT VTI: 0.27 LVOT Pk Grad: 6.00 LVOT Mn Grad: 4.00 LVOT Diam: 2.10 LVOT Area: 3.46 Diastolic Function MV Pk E: 1.06 MV Pk A: 0.60 E/A: 1.80 E'Medial: 7.62 E/E' Med: 13.90 E' Laterial: 11.90 E/E' Lat: 8.90 Right Ventricle TAPSE (mm): 23.90 TVS' Michael: 12.20 Great Vessels Aorta Sinus of Valsalva: 3.50 2.0-3.5 cm Ao Asc: 3.20 2.1-3.4 cm Ao Arch: 2.90 Pulmonary Veins Pulm Vein S/D 0.90 Pulmonary Valve PV Pk Michael: 0.82 Peak PV Grad: 3.00 Updated in Other Vendor System with Status of Final [facility] MD electronically signed on 07/15/2025 10:59:27 AM with status of Final
--- OUTSIDE RECORDS SUMMARY | 2025-07-15 03:37 | XMS_ITS | Data Portability ---
Author Organization [place] [facility], Allergy Address [address] [place] [id number] Assessment Encounter Date Assessment Date Assessment LastModified [...] Recorded Time Impacted cerumen in right ear 56315693228 70016 Active 2016 Impacted cerumen, right ear; Note: Date Diagnosed : 10/31/2016 4:26 PM (H61.21) Not Available [facility] 4 02:25:57 Acute tonsillit is 87976344 Active 2016 Acute tonsillit is, unspecifi ed; Note: Date Diagnosed : 10/31/2016 4:28 PM (J03.90) Not Available [facility] 4 02:26:11 Otalgia of right ear 7910890909 Active 2016 Otalgia, right ear; Note: Date Diagnosed : 10/31/2016 4:26 PM (H92.01) Not Available [facility] 4 02:25:51 Snoring 52697484 Active 2023 MINNIE CHRIS MD [address] [place] [address], [place], [phone] , [place] - [facility] 4 15:20:59 Problem Notes None recorded. Procedures Surgical History Date Name Laterality Status Provider Name and Address Organization Details Recorded Time Appendectomy completed Mandi Wisdom [facility] - [facility] 04/17/2024 14:56:12 Imaging Results None recorded. Procedure Notes None recorded. Medical Equipment None Reported. Allergies Allergen ID Allergen Name Allergen Category Reaction Reaction Severity Criticality Documentation Date Start Date Code Code System Note Provider Name and Address Organization Details Recorded Time 34818 clindamyc in hydrochlo ride medicatio n other Not available Not available 01/07/2024 01819 RxNorm React ion: unkno wn, unspe cifie d;; Not Available [facility] 4 00:55:38 Medications Name Sig Start Date Stop Date Status Note LastModified by Organization Details LastModified Time acetamino phen 325 mg tablet TAKE 2 TABLETS BY MOUTH EVERY 4 HOURS NEEDED FOR PAIN active Not Available Not Available No t Available clindamyc in HCl 300 mg capsule 11/01 completed Medicati on ID: [id number] D uration Value: 14 Brand Name: clindamy [...] three times a day if needed M edicasantoso nGeneric Name: tramadol Not Available Not Available [...] Updated DateTime 04/17/2024 172.72 cm 50.9 kg/m2 317822.44 g Mandi Castro [place] - [facility] 04/17/2024 15:03:16 Social History None recorded. Functional Status Question Answer Note LastModified by Organizat ion Details LastModified Time What is your level of alcohol consumption? Occasional [email or web address] Information not available 04/17/2024 Mental Status None recorded. Family History Nothing Reported. Medical History Condition Response Emphysema Y Heart Problems Y Anxiety Y Depression Y Asthma Y Gynecological HistoryNo gynecological history recorded. Obstetrics History GPAL:G 0 P 0 0 0 0 Past Encounters Encounter ID Performer Location Encounter Start Date Encounter Closed Date Diagnosis/Indication Diagnosis SNOMED-CT Code Diagnosis ICD10 Code Diagnosis IMO Codes Diagnosis Note [id number] MINNIE CHRIS MD [facility] [address] [id number] 04/17/2024 14:13:00 04/17/2024 15:22:11 Snoring 53040636 R06.83 Health Concerns Section Related Observation LastModified by Organization Detai ls LastModified Time None Recorded Concern Status LastModified by Organization Details LastModified Time None Recorded Advance Directives Directive None Recorded Payers Insurance Date Sequence Insurance Name Policy Number Policy Pollard Covered Member ID Pollard Member ID Guarantor Name 04/17/2024 1 [facility] (PPO) [id number] Steph Neal [id number] Steph Neal 04/17/2024 1 [facility] (HMO) [id number] Steph Neal [id number] Steph Neal 04/17/2024 1 [facility] (O) [id number] Steph Neal [id number] Steph Neal 04/17/2024 1 [facility] [id number] Steph Neal [id number] Steph Neal Notes Date Note Type Note Provider Name and Address Organization Details Recorded Time 04/17/2024 text/html ROS as noted in the HPI weight loss program neqqysih20/1/[address] [place] 46AHI 2.7 just started wegovy +snoringno hx of tonsil infections MINNIE CHRIS MD [address] [place] [address], [phone], [place] - [facility] 04/17/2024 15:22:03 OBGyn Episode No OBEpisode recorded.
--- OUTSIDE RECORDS SUMMARY | 2025-07-15 03:38 | XMS_ITS | Data Portability ---
Author Organization [facility], Main Office Address [address] [place] [address] Care Team Providers Care Nuclear Station Operator Name Role Phone MINNIE CHRIS User Acceptance Tester [facility] Venetian Blind Cleaner And Repairer HODA RAHMAN Orthopedic Surgeon [facility] Urologist [phone] JESS DELA CRUZ Writer MOLLY LAM Primary Care Provider Assessment Encounter Date Assessment Date Assessment LastModified by Organization Details LastModified Time 01/08/2023 01/08/2023 This service was provided using telemedicine. Patient consented to video & audio visit Patient was located in the [facility]. Provider was located in the office. [...] DO Not Attach Compendium, Do Not Delete/merge, [id number] 3 15:18:01 rapid flu (A+B) 2022 023 CARMELO In-Office Order, Internal Use Only DO Not Attach Compendium DO Not Attach Compendium, Do Not Delete/merge, [id number] 3 15:28:10 rsv (respi ratory syncyt ial virus) , rapidsoniya al 2022 023 CARMELO In-Office Order, Internal Use Only DO Not Attach Compendium DO Not Attach Compendium, Do Not Delete/merge, [id number] 3 15:44:39 urinal ysis, dipsti ck 2022 023 [email or web address] In-Office Order, Internal Use Only DO Not Attach Compendium DO Not Attach Compendium, Do Not Delete/merge, [id number] 3 14:39:10 Referral dermat ologis t referr al 2022 023 [facility], [address], [address], [place], [address], 4 10:36:34 Procedures None record ed. Surgeries None record ed. Imaging None record ed. Medication Orders Flexmen tin 875 mg-125 mg tablet 2022 023 [facility][id number], [address] [place] [place], [id number], 3 15:18:13 benzon atate 100 mg capsul e 2022 023 MOBILE [facility] #[id number], [address] [place], [phone], 3 15:18:16 albute rol sulfat e HFA 90 mcg/ac tuatio n aeroso l inhale r 2022 023 MOBILE [facility] #41174, [address] [place] [place], [id number], 15:18:13 ciprof loxaci n 250 mg tablet 2022 023 [facility], [address], [place], [place], [phone], 15:55:22 Patient TargetsNo targets recorded. Patient Instructions Encounter Date Encounter Id Patient Instructions Last Modified By Organization Details Last Modified Time 01/08/2023 [id number] Follow up if no improvement or if symptoms worsen. [email or web address] Not available 01/08/2023 16:19:02 04/17/2023 [id number] tennis elbow: care instructions pmadden Not available 04/17/2023 16:48:46 tennis elbow: exercises pmadden Not available 04/17/2023 16:48:47 Follow up if no improvement or if symptoms worsen. pmadden Not available 04/17/2023 16:53:08 04/26/2023 [id number] 05/07/23- message left at home number to return my call, offer a hospital follow up as well as Pt is also due for a physical. 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 lesion Referring Physician: Cabrera Mondragon, Internal Medicine, Encounter Date: 04/17/2023 Results Created Date Observation Date Name Description Value Unit Range Abnormal Flag Note LastModifiedBy Organization Detail LastModifiedTime 04/19/2004/19/2023 urina lysis , dipst ick Leukocytes Negati ve Not Available In-Office Order Internal Use Only DO Not Attach Compendium DO Not Attach Compendium, Do Not Delete/merge, [id number] 04/19/2023 13:29:11 04/19/2004/19/2023 urina lysis , dipst ick Nitritie negati ve Not Available In-Office Order Internal Use Only DO Not Attach Compendium DO Not Attach Compendium, Do Not Delete/merge, [facility] 04/19/2023 13:29:11 04/19/20 23 04/19/2023 urina lysis , dipst ick Urobilinogen .2 Not Available In-Of fice Order Internal Use Only DO Not Attach Compendium DO Not Attach Compendium, Do Not Delete/merge, [facility] 04/19/2023 13:29:11 04/19/20 23 04/19/2023 urina lysis , dipst ick Protein Negati ve Not Available In-Office Order Internal Use Only DO Not Attach Compendium DO Not Attach Compendium, Do Not Delete/merge, [facility] 04/19/2023 13:29:11 04/19/20 23 04/19/2023 urina lysis , dipst ick pH 6.0 Not Available In-Office Order Internal Use Only DO Not Attach Compendium DO Not Attach Compendium, Do Not Delete/merge, [facility] 04/19/2023 13:29:11 04/19/20 23 04/19/2023 urina lysis , dipst ick Blood Hemoly zed: Trace Not Available In-Office Order Internal Use Only DO Not Attach Compendium DO Not Attach Compendium, Do Not Delete/merge, [facility] 04/19/2023 13:29:11 04/19/20 23 04/19/2023 urina lysis , dipst ick Specific Standard 1.005 Not Available In-Off ice Order Internal Use Only DO Not Attach Compendium DO Not Attach Compendium, Do Not Delete/merge, [facility] 04/19/2023 13:29:11 04/19/20 23 04/19/2023 urina lysis , dipst ick Ketone Trace Not Available In-Office Order Internal Use Only DO Not Attach Compendium DO Not Attach Compendium, Do Not Delete/merge, [facility] 04/19/2023 13:29:11 04/19/20 23 04/19/2023 urina lysis [...] (PROC ) No observ ation record ed. [email or web address] [facility] (Medical Records) [address] [place], [address], 05/21/2023 11:11:15 05/22/20 23 05/21/2023 US, abdom en, compl ete No observ ation record ed. [email or web address] [facility] (Medical Records) [address] [place], [address], 05/22/2023 12:50:47 Result Notes None recorded. Problems Name Problem SNOMED Code Status Onset Date Resolution Date Notes Provider Name and Address Organization Details Recorded Time Patient status finding [id number] Com[facility]29/2016 [facility] 15:18:[facility] Backache 955343039 Completed 06/29/2016 LUIS FERNANDO Adams, [facility] 6 15:18:46 Urinary incontin ence 692018238 Active Belabryan CHOE-Man [address] [address], [place], [address], [facility] 6 12:28:32 Elevated blood-pr essure reading without diagnosi s of hyperten yue 067567545 Active Belajihan Mondragon PA-C [address] [address], [place], [address], [facility] 6 12:28:32 Pure hypercho lesterol emia 266816246 Completed [facility]/25/2017 [facility] 7 14:59[facility]23 Recurren t major depressi ve episodes 077115059 Active Bela CHOE-C [address] [address], [place], [address], [facility] 6 12:28:31 Neck pain 35332251 Completed 01/25/2017 Omayra deluna [facility] 7 14:59:05 Obesity 732638351 Completed 01/08/2020 BelaUXArmy-C [address], [place], [address], [facility] 0 17:12:44 Osteoart hritis of knee 817035076 Active Bela Tweet [employer]-C [address], [place], [address], [place] [facility] 6 12:28:32 Morbid obesity 786937062 Active Bela [employer] [address], [place], [address], [facility] 6 12:28:31 Knee pain Completed 02/02/2019 Omayra deluna [facility] 9 15:55:45 Dysuria 95982926 Completed 06/29/2016 LUIS FERNANDO Adams, [facility] 6 15:19:10 Acute pharyngi tis 270097507 Completed 06/29/2016 LUIS FERNANDO Adams [facility] 6 15:19:04 Acute vaginiti s 58470994 Completed 06/29/2016 LUIS FERNANDO Adams, [facility] 6 15:18:52 Cough 72719543 Completed 06/29/2016 LUIS FERNANDO Adams [facility] 6 15:19:12 Palpitat ions 18140664 Completed 01/25/2017 Omayra deluna [facility] 7 14:59:02 Spasm of back muscles 759648819 Completed 01/25/2017 Omayra Glading-D ilorenzo null, [facility] 7 14:59:27 Atrial fibrilla tion 31296059 Completed 02/02/2019 Omayra deluna, [facility] 9 15:56:00 Spinal stenosis in cervical region 94986437 Completed 11/30/2014 mri does not show this Bela Giancarlo CHOE-C [address], [place], [address], [facility] 6 12:28:32 Snoring 08818066 Completed 01/25/2017 Omayra deluna, [facility] 7 14:58:59 Thyroid nodule 347124931 Active Bela Mondragon PA-C [address], [place], [address], [facility] 6 12:28:31 Insomnia 574557750 Active Belajihan Mondragon PA-C [address], [place], [address], [facility] 6 12:28:31 Degenera tion of thoracic interver tebral disc 84001817 Active T1/T2 Belabryan Mondragon PA-C [address], [place], [address], [facility] 6 12:28:32 Degenera tion of cervical interver tebral disc 20869871 Completed 01/25/2017 Omayra deluna, [facility] 7 14:59:09 Edema 034981208 Completed 06/29/2016 LUIS FERNANDO Adams, [facility] 6 15:18:56 Rapid atrial fibrilla tion 863759895 Completed 01/27/2018 Omayra deluna, [facility] 8 11:21:10 Paroxysm al atrial fibrilla tion 165486752 Active Omayra Curiel-D yonathanorenzo null, [facility] 6 15:17:25 Panic disorder 517478112 Completed 02/02/2019 Omayra Curiel-D yonathanorenzo null, [facility] 9 15:55:48 Patent foramen ovale 297735759 Active Omayra Curiel-D yonathanorenzo null, [facility] 6 15:17:25 Pain of joint 44436242 Completed 01/25/2017 Omayra Mannvaishali-Pamela marcelinonzo null, [facility] 7 14:59:13 Anxiety 36867724 Completed 01/08/2020 Bela CHOE-C [address], [place], [address], [facility] 0 17:12:31 Urinary tract infectio us disease 79435556 Completed 200803/09/2014 RECORDED 12/07/19 09 8:54AM BY BRENDA STEINER MA, ANNOTATI ON/ADDEN DUM Belajihan MOCKC [address], [place], [address], [facility] 6 12:28:31 Urinary tract infectio us disease 18654105 Completed 200804/05/2014 RECORDED 12/07/19 09 8:54AM BY BRENDA STEINER MA, BARBARA ON/ADDEN DUM Belajihan MOCKC [address], [place], [address], [facility] 6 12:28:32 Lumbar sprain 527978822 Completed 200903/09/2014 RECORDED 11/12/19 10 9:28AM BY CHINTAN SWEENEYATI ON/ADDEN DUM Bela Giancarlo CHOE-C [address], [place], [address], [facility] 6 12:28:32 Malaise and fatigue 970291308 Completed 200903/09/2014 IMPRESSI ON: LONG TALK RE WEIGHT, ADDICTIV E EATING BEHAVIOR S, WILL OCNTINUE COUNSELI NG AND TRY TO INCREASE EXERCISE . SEES DR MORALES TOO. DOES NOT FEEL SHE NEEDS MEDS FOR DEPRESSI ON, FEELS WELL MOSTLY.; RECORDED 11/12/19 10 9:28AM BY BARBARA SWEENEY ON/ADDEN DUM Bela Mondragon PA-C [address], [place], [address], [facility] 6 12:28:32 Synoviti s/tenosy novitis - hand 063147089 Completed 200903/09/2014 IMPRESSI ON: POSSIBLE CARPAL TUNNEL SYNDROME ; RECORDED 11/12/19 10 9:28AM BY BARBARA SWEENEY ON/ADDEN DUM Bela Mondragon PA-C [address], [place], [address], [facility] 6 12:28:32 Joint pain in ankle and foot Completed 200903/09/2014 IMPRESSI ON: FXT FIBULA AND OTHER IN 01/01, STILL WITH AIN EXPECTED , TX WITH ULTRAM SINCE NO CONTRAIN DICATION S AND USE MOTRIN 800MG TID WITH FOOD; RECORDED 11/12/19 10 9:27AM BY BARBARA SWEENEY ON/ADDEN DUM Bela Mondragon PA-C [address], [place], [address], [facility] 6 12:28:32 Pain in thoracic spine 300223033 Completed 200903/09/2014 IMPRESSI ON: MUSCULAR , STRETCH; RECORDED 11/12/19 10 9:27AM BY BARBARA SWEENEY ON/ADDEN DUM Bela Giancarlo PA-C [address], [place], [address], [facility] 6 12:28:32 Lumbar sprain 744744124 Completed 200904/05/2014 RECORDED 11/12/19 10 9:28AM BY BARBARA SWEENEY ON/ADDEN DUM Bela [employer] [address], [place], [address], [facility] 6 12:28:32 Malaise and fatigue 385842084 Completed 200904/05/2014 IMPRESSI ON: LONG TALK RE WEIGHT, ADDICTIV E EATING BEHAVIOR S, WILL OCNTINUE COUNSELI NG AND TRY TO INCREASE EXERCISE . SEES DR MORALES TOO. DOES NOT FEEL SHE NEEDS MEDS FOR DEPRESSI ON, FEELS WELL MOSTLY.; RECORDED 11/12/19 10 9:28AM BY BARBARA SWEENEY ON/ADDEN DUM Bela MondragonPixel VelocityC [address], [place], [address], [facility] 6 12:28:32 Synoviti s/tenosy novitis - hand 254749904 Completed 200904/05/2014 IMPRESSI ON: POSSIBLE CARPAL TUNNEL SYNDROME ; RECORDED 11/12/19 10 9:28AM BY BARBARA SWEENEY ON/ADDEN DUM Bela [employer] [address], [place], [address], [facility] 6 12:28:32 Joint pain in ankle and foot Completed 200904/05/2014 IMPRESSI ON: FXT FIBULA AND OTHER IN 01/01, STILL WITH AIN EXPECTED , TX WITH ULTRAM SINCE NO CONTRAIN DICATION S AND USE MOTRIN 800MG TID WITH FOOD; RECORDED 11/12/19 10 9:27AM BY BARBARA SWEENEY ON/ADDEN DUM Bela [employer] [address], [place], [address], [facility] 6 12:28:32 Pain in thoracic spine 858036122 Completed 200904/05/2014 IMPRESSI ON: MUSCULAR , STRETCH; RECORDED 11/12/19 10 9:27AM BY BARBARA SWEENEY ON/ADDEN DUM Bela Giancarlo CHOE-C [address], [place], [address], [facility] 6 12:28:32 Inflamma tory disorder of extremit y Completed 201103/09/2014 IMPRESSI ON: REVIEWED XRAY WITH ALPHONSE JOHNSON EXAM CONSISTE NT WITH ACHILLES TENDONIT IS, AND SWELLING NO MASS FELT; RECORDED 03/25/20 12 9:59AM BY DUNIA SILVER MA, BARBARA ON/ADDEN DUM Bela Giancarlo CHOE-C [address], [place], [address], [facility] 6 12:28:32 Acute bronchit is 50166281 Completed 201103/09/2014 RECORDED 03/25/20 12 9:59AM BY DUNIA SILVER MA, BARBARA ON/ADDEN DUM Bela Giancarlo MOCKC [address], [place], [address], [facility] 6 12:28:31 Cough 75153093 Completed 201103/09/2014 RECORDED 03/25/20 12 9:58AM BY DUNIA SILVER MA, ANNOTATI ON/ADDEN DUM Brenda Garry green [place] [facility], [facility] 6 15:19:12 Degenera tion of interver tebral disc Completed 201103/09/2014 RECORDED 03/25/20 12 9:59AM BY DUNIA SILVER MA, ANNOTLUCIA ON/ADDEN DUM Bela Giancarlo MOCKC [address], [place], [address], [facility] 6 12:28:32 Lymphede mo 099863132 Completed 201103/09/2014 RECORDED 03/25/20 12 9:59AM BY DUNIA SILVER MA, BARBARA ON/ADDEN DUM Bela Mondragon PA-C [address], [place], [address], [facility] 6 12:28:31 Otalgia 64262422 Completed 201103/09/2014 RECORDED 03/25/20 12 9:59AM BY DUNIA SILVER MA, ANNOTATI ON/ADDEN DUM Bela Mondragon PA-C [address], [place], [address], [facility] 6 12:28:31 Pyelonep hritis 77913779 Completed 201103/09/2014 IMPRESSI ON: SEE ABOVE, PT TO FINISH BACTRIM TO ER IF CANNOT TOLERATE PO WITH VOMITING OR FEELS DIZZY.., PT WILL CALL AND CHECK WITH BLASTING CONTRACT MAN TOMORROW ABOUT MAKING SURE SENSITIV ITIES MATCH BACTRIM, FLUIDS REST; RECORDED 03/25/20 12 9:59AM BY DUNIA SILVER MA, BARBARA ON/ADDEN DUM Bela Mondragon PA-C [address], [place], [address], [facility] 6 12:28:31 Pain in limb 60012836 Completed 201103/09/2014 IMPRESSI ON: PT TO SET UP APPT; RECORDED 03/25/20 12 9:59AM BY DUNIA SILVER MA, ANNOTATI ON/ADDEN DUM Bela Giancarlo CHOE-C [address], [place], [address], [facility] 6 12:28:32 Shoulder joint pain 457377719 Completed 201103/09/2014 IMPRESSI ON: SOUNDS LIKE BURSISIT PT TO SEE [facility]; RECORDED 03/25/20 12 9:59AM BY DUNIA SILVER MA, ANNOTLUCIA ON/ADDEN DUM Bela Giancarlo PA-C [address], [place], [address], [facility] 6 12:28:32 Chronic sinusiti s 82829310 Completed 201103/09/2014 RECORDED 03/25/20 12 9:59AM BY DUNIA SILVER MA, ANNOTATI ON/ADDEN DUM Belabryan MOCKC [address], [place], [address], [facility] 6 12:28:31 Wheezing 17842022 Completed 201103/09/2014 RECORDED 03/25/20 12 9:59AM BY DUNIA SILVER MA, ANNOTATI ON/ADDEN DUM Belajihan MOCKC [address], [place], [address], [facility] 6 12:28:32 Inflamma tory disorder of extremit y Completed 201104/05/2014 IMPRESSI ON: REVIEWED XRAY WITH ALPHONSE JOHNSON EXAM CONSISTE NT WITH ACHILLES TENDONIT IS, AND SWELLING NO MASS FELT; RECORDED 03/25/20 12 9:59AM BY DUNIA SILVER MA, ANNOTLUCIA ON/ADDEN DUM Belabryan MOCKC [address], [place], [address], [facility] 6 12:28:32 Acute bronchit is 11075711 Completed 201104/05/2014 RECORDED 03/25/20 12 9:59AM BY DUNIA SILVER MA, ANNOTLUCIA ON/ADDEN DUM Belajihan Mondragon PA-C [address], [place], [address], [facility] 6 12:28:31 Cough 39507883 Completed 201104/05/2014 RECORDED 03/25/20 12 9:58AM BY DUNIA SILVER MA, ANNOTATI ON/ADDEN DUM Brenda green [place] null, [facility] 6 15:19:12 Degenera tion of interver tebral disc Completed 201104/05/2014 RECORDED 03/25/20 12 9:59AM BY DUNIA SILVER MA, ANNOTLUCIA ON/ADDEN DUM Bela Giancarlo PA-C [address], [place], [address], [facility] 6 12:28:32 Lymphedeunice nevarez 982397304 Completed 201104/05/2014 RECORDED 03/25/20 12 9:59AM BY DUNIA SILVER MA, ANNOTATI ON/ADDEN DUM Bela Giancarlo PA-C [address], [place], [address], [facility] 6 12:28:31 Otalgia 53014843 Completed 201104/05/2014 RECORDED 03/25/20 12 9:59AM BY DUNIA SILVER MA, ANNOTLUCIA ON/ADDEN DUM Bela Giancarlo PA-C [address], [place], [address], [facility] 6 12:28:31 Knee pain Completed 201104/05/2014 RECORDED 03/25/20 12 9:59AM BY DUNIA SILVER MA, ANNOTATI ON/ADDEN DUM Omayra Agnes garrett [facility] 9 15:55:45 Pyelonep hritis 47239887 Completed 201104/05/2014 IMPRESSI ON: SEE ABOVE, PT TO FINISH BACTRIM TO ER IF CANNOT TOLERATE PO WITH VOMITING OR FEELS DIZZY.., PT WILL CALL AND CHECK WITH BLASTING CONTRACT MAN TOMORROW ABOUT MAKING SURE SENSITIV ITIES MATCH BACTRIM, FLUIDS REST; RECORDED 03/25/20 12 9:59AM BY DUNIA SILVER MA, ANNOTATI ON/ADDEN DUM Bela Giancarlo PA-C [address], [place], [address], [facility] 6 12:28:31 Pain in limb 31460160 Completed 201104/05/2014 IMPRESSI ON: PT TO SET UP APPT; RECORDED 03/25/20 12 9:59AM BY DUNIA SILVER MA, BARBARA ON/ADDEN DUM Bela Mondragon PA-C [address], [place], [address], [facility] 6 12:28:32 Shoulder joint pain 241281759 Completed 201104/05/2014 IMPRESSI ON: SOUNDS LIKE BURSISIT PT TO SEE [facility]; RECORDED 03/25/20 12 9:59AM BY DUNIA SILVER MA, BARBARA ON/ADDEN DUM Bela Mondragon PA-C [address], [place], [address], [facility] 6 12:28:32 Chronic sinusiti s 82360236 Completed 201104/05/2014 RECORDED 03/25/20 12 9:59AM BY DUNIA SILVER MA, BARBARA ON/ADDEN DUM Bela Mondragon PA-C [address], [place], [address], [facility] 6 12:28:31 Wheezing 85193515 Completed 201104/05/2014 RECORDED 03/25/20 12 9:59AM BY DUNIA SILVER MA, BARBARA ON/ADDEN DUM Bela Mondragon PA-C [address], [place], [address], [facility] 6 12:28:32 Edema 618168395 Completed 201103/09/2014 IMPRESSI ON: BILATERA L, LUNGS CLEAR, C/W DEPENDEN T EDEMA, HAS TAKEN HCTZ IN THE PAST WITH IMPROVEM ENT, ALSO REVIEWED DIET/LEG ELEVATIO N/WEIGHT LOSS/COM PRESSION STOCKING S; RECORDED 06/12/20 12 9:04AM BY BARBARA ARTIS ON/ADDEN DUM Brenda [facility], [facility] 6 15:18:56 Lipoma of skin and subcutan eous tissue (excludi ng face) 116436087 Completed 201103/09/2014 IMPRESSI ON: BACK; RECORDED 06/12/20 12 9:04AM BY BARBARA ARTIS ON/ADDEN DUM Bela CHOE-C [address], [place], [address], [facility] 6 12:28:31 Skin sensatio n disturba pre 33075795 Completed 201103/09/2014 IMPRESSI ON: AT SITE OF PREVIOUS CONTUSIO N FROM ABOUT A MONTH AGO, WITHOUT PAIN OR WITHOUT SIGNS OF CELLULIT IS, FOR NOW WILL MONITOR; RECORDED 06/12/20 12 9:03AM BY BARBARA ARTIS ON/ADDEN DUM Bela CHOE-C [address], [place], [address], [facility] 6 12:28:32 Plantar fascial fibromat osis 05898036 Completed 201103/09/2014 RECORDED 06/12/20 12 9:04AM BY BARBARA ARTIS ON/ADDEN DUM Bela CHOE-C [address], [place], [address], [facility] 6 12:28:32 Influenz a vaccine needed [id number] 06 Completed 201103/09/2014 RECORDED 06/12/20 12 9:13AM BY GRISELDA SILVEIRA, OFFICE VISIT Bela CHOE-Man [address], [place], [address], [facility] 6 12:28:32 Edema 710796163 Completed 201104/05/2014 IMPRESSI ON: BILATERA L, LUNGS CLEAR, C/W DEPENDEN T EDEMA, HAS TAKEN HCTZ IN THE PAST WITH IMPROV[facility] ENT, ALSO REVIEWED DIET/LEG ELEVATIO N/WEIGHT LOSS/COM PRESSION STOCKING S; RECORDED 06/12/20 12 9:04AM BY BARBARA ARTIS ON/ADDEN DUM Brenda green [place] [facility] 6 15:18:56 Lipoma of skin and subcutan eous tissue (excludi ng face) 127993277 Completed 201104/05/2014 IMPRESSI ON: BACK; RECORDED 06/12/20 12 9:04AM BY BARBARA ARTIS ON/ADDEN DUM Bela CHOE-C [address], [place], [address], [facility] 6 12:28:31 Skin sensatio n disturba pre 90137154 Completed 201104/05/2014 IMPRESSI ON: AT SITE OF PREVIOUS CONTUSIO N FROM ABOUT A MONTH AGO, WITHOUT PAIN OR WITHOUT SIGNS OF CELLULIT IS, FOR NOW WILL MONITOR; RECORDED 06/12/20 12 9:03AM BY BARBARA ARTIS ON/ADDEN DUM Bela Velasquezden ДМИТРИЙ-C [address], [place], [address], [facility] 6 12:28:32 Plantar fascial fibromat osis 80762524 Completed 201104/05/2014 RECORDED 06/12/20 12 9:04AM BY BARBARA ARTIS ON/ADDEN DUM Bela CHOE-C [address], [place], [address], [facility] 6 12:28:32 Influenz a vaccine needed 52543611162 06 Completed 201104/05/2014 RECORDED 06/12/20 12 9:13AM BY GRISELDA SILVEIRA, OFFICE VISIT Bela CHOE-C [address], [place], [address], [facility] 6 12:28:32 Administ ration of measles and mumps and rubella vaccine Completed 201103/09/2014 RESOLVED DATE: 06/13/20 12; IMPRESSI ON: NEG MUMPS TITER, NEEDS REVACCIN ATION; RECORDED 06/13/20 12 12:55PM BY OMAYRA Saleem MD, OFFICE VISIT [facility] Mondragon [facility] [address], [place], [address], [facility] 6 12:28:32 Administ ration of measles and mumps and rubella vaccine Completed 201104/05/2014 RESOLVED DATE: 06/13/20 12; IMPRESSI ON: NEG MUMPS TITER, NEEDS REVACCIN ATION; RECORDED 06/13/20 12 12:55PM BY OMAYRA Saleem MD, OFFICE VISIT [facility] [address] [facility] [address], [place], [address], [facility] 6 12:28:32 Adult health examinat ion Completed 201103/09/2014 IMPRESSI ON: PAP IS UTD, PT TO START EXERCISI NG; RECORDED 07/08/20 12 1:24PM BY BARBARA GUIDRY ON/ADDEN DUM [facility] [address] [facility] [address] [facility] [address], [place], [address], [facility] 6 12:28:32 Nausea 129207493 Completed 201103/09/2014 IMPRESSI ON: RULE OUT PREGNANC Y; RECORDED 07/08/20 12 1:24PM BY BARBARA GUIDRY ON/ADDEN DUM [facility] [address] [facility] [address], [place], [address], [facility] 6 12:28:32 Inflamma tion of sacroili ac joint 95135702 Completed 201103/09/2014 IMPRESSI ON: RIGHT SIDED PAIN, CHANGE TO IBUPROFE N WITH FOOD AND TYLENOL WITH CODEINE AT NIGHT. PE 05/06 OPT WILL ST UP PT HAS PAPERWOR K; RECORDED 07/08/20 12 1:24PM BY BARBARA GUIDRY ON/ADDEN DUM Bela Mondragon VA-C [address], [place], [address], [facility] 6 12:28:32 Administ ration of diphther ia and tetanus vaccine Completed 201103/09/2014 RECORDED 07/08/20 12 1:24PM BY BARBARA GUIDRY ON/ADDEN DUM Bela Mondragon VA-C [address], [place], [address], [facility] 6 12:28:32 Nausea [id number] Completed 201104/05/2014 IMPRESSI ON: RULE OUT PREGNANC Y; RECORDED 07/08/20 12 1:24PM BY BARBARA GUIDRY ON/ADDEN DUM Bela Mondragon VA-C [address], [place], [address], [facility] 6 12:28:32 Inflamma tion of sacroili ac joint [id number] Completed 201104/05/2014 IMPRESSI ON: RIGHT SIDED PAIN, CHANGE TO IBUPROFE N WITH FOOD AND TYLENOL WITH CODEINE AT NIGHT. PE 05/[address] PT HAS PAPERSalimaOR K; RECORDED 07/08/20 12 1:24PM BY BARBARA GUIDRY ON/ADDEN DUM Bela Mondragon VA-C [address], [place], [address], [facility] 6 12:28:32 Administ ration of diphther ia and tetanus vaccine Completed 201104/05/2014 RECORDED 07/08/20 12 1:24PM BY BARBARA GUIDRY ON/ADDEN DUM Bela Mondragon PA-C [address], [place], [address], [facility] 6 12:28:32 Dizzines s and giddines s [id number] Completed 201203/09/2014 IMPRESSI ON: NORMAL EXAM; RECORDED 09/01/19 13 1:16PM BY CHERIE HERRERA MA, ANNOTATI ON/ADDEN DUM Bela Mondragon PA-C [address], [place], [address], [facility] 6 12:28:32 Dizzines s and giddines s [id number] Completed 201204/05/2014 IMPRESSI ON: NORMAL EXAM; RECORDED 09/01/19 13 1:16PM BY CHERIE HERRERA MA, CHINTANATI ON/ADDEN DUM Bela Tweet Category-C [address], [place], [address], [facility] 6 12:28:32 Low back pain [id number] Completed 201203/09/2014 RECORDED 09/05/19 13 10:23AM BY CHERIE HERRERA MA, CHINTANATI ON/ADDEN DUM Bela Tweet Category-C [address], [place], [address], [facility] 6 12:28:32 Low back pain 044315210 Completed 201204/05/2014 IMPRESSI ON: X 1 DAY, OCCURED WHILE BENDING OVER; RECORDED 09/05/19 13 10:23AM BY CHERIE HERRERA MA, CHINTANATI ON/ADDEN DUM Bela [employer] [address], [place], [address], [facility] 6 12:28:32 Acute pharyngi tis [id number] Completed 201203/09/2014 IMPRESSI ON: + RAPID STREP, POSSIBLE RIGHT EARLY PERITONS ILLAR ABSCESS, TX WITH ABX/FLUI DS/NSAID S, IF WORSENIN G PAIN OR DIFFICUL TY SWALLOWI NG CALL OFFICE FOR ENT APPT.; RECORDED 12/16/19 13 10:04AM BY BARBARA ARTIS ON/ADDEN DUM Brenda green MA null, [facility] 6 15:19:04 Acute pharyngi tis [id number] Completed 201204/05/2014 IMPRESSI ON: + RAPID STREP, POSSIBLE RIGHT EARLY PERITONS ILLAR ABSCESS, TX WITH ABX/FLUI DS/NSAID S, IF WORSENIN G PAIN OR DIFFICUL TY SWALLOWI NG CALL OFFICE FOR ENT APPT.; RECORDED 12/16/19 13 10:04AM BY BARBARA ARTIS ON/ADDEN DUM Brenda green MA null, [facility] 6 15:19:04 Knee pain Completed 201203/09/2014 IMPRESSI ON: PT IN A MOMIN TO LEAVE SO DID NOT EXAMINE KNEES. WILL START WITH X-RAY SINCE MAY HAVE DJD. F/U WITH PCP FOR FURTHER ASSESSME NT. 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 GETS INTERTRI GO FUNGAL INFECTIO NS DUE TO THIS; RECORDED 05/09/20 13 10:00AM BY BARBARA GUIDRY ON/ADDEN DUM Bela MOCKC [address] [facility] [address], [place], [address], [facility] 6 12:28:32 Immuniza tion refused Completed 201204/05/2014 RECORDED 05/09/20 13 10:00AM BY BARBARA GUIDRY ON/ADDEN DUM Bela Mondragon PA-C [address], [place], [address], [facility] 6 12:28:32 Hypertro phic conditio n of skin 55961033 Completed 201204/05/2014 IMPRESSI ON: AFTER WEIGHT LOSS. GETS INTERTRI GO FUNGAL INFECTIO NS DUE TO THIS; RECORDED 05/09/20 13 10:00AM BY BARBARA GUIDRY ON/ADDEN DUM Bela Tweet [employer] [address], [place], [address], [facility] 6 12:28:32 Tobacco user [id number] Completed 201305/29/2014 RECORDED 01/17/20 14 10:42AM BY OMAYRA Saleem MD, OFFICE VISIT Bela Tweet [employer] [address], [place], [address], [facility] 6 12:28:31 Adult health examinat ion Completed 201304/05/2014 IMPRESSI ON: PAP IS OVERDUE, PT WILL ARRANGE THIS, PT HAS AN IUD IN PLACE. PT WILL WORK ON DIET AND EXERCISE .; RECORDED 01/17/20 14 10:22AM BY BARBARA ARTIS ON/ADDEN DUM Bela [employer]weet [employer] [address], [place], [address], [facility] 6 12:28:32 Asthma [id number] Completed 201701/08/2020 Bela Mondragon PA-C [address], [place], [address], [facility] 0 17:12:58 Ex-smoke r 1822299 Active 2017 rBenda green MA null, [facility] 8 15:42:54 Small bowel obstruct ion 758427183 Active 2018 Brenda green MA null, [facility] 9 09:46:54 Generali zed anxiety disorder 04977579 Active 2019 Bela Mondragon PA-C [address], [place], [address], [facility] 0 17:12:32 Mild intermit tent asthma 483892418 Active 2019 Bela Mondragon PA-C [address], [place], [address], [facility] 0 17:13:08 [facility] [facility] extrem[facility] y 058739536 Active 2019 Bela Mondragon PA-C [address], [place], [address], [facility] 0 17:13:31 Obstruct jefry sleep apnea syndrome 59807583 Active 2022 Cabrera Mondragon PA-C [address], [place], [address], [facility] 3 17:09:42 Pain of left hip joint 32000605654 9100 Active 2022 Cabrera Mondragon PA-C [address], [place], [address], [facility] 3 17:10:00 Left lateral elbow tendinop athy 76906038482 9100 Active 2022 Cabrera Mondragon PA-C [address], [place], [address], [facility] 3 13:33:40 Problem Notes None recorded. Procedures Surgical History Date Name Laterality Status Provider Name and Address Organization Details Recorded Time 05/21/20 23 Endoscopic us exam esoph completed Leslie Alba [facility] 05/21/2023 11:10:55 04/20/20 23 laparoscopic appendectomy completed Leslie Alba [facility] 04/22/2023 10:12:44 04/20/20 23 Appendectomy completed Avelina Encinas RN [facility] 04/30/2023 10:29:16 04/19/20 23 Appendectomy completed Avelina Encinas RN [facility] 04/25/2023 09:55:00 11/24/19 22 cardioversion completed Avelina Encinas RN [facility] 11/27/2021 13:27:24 01/24/20 17 extraction of wisdom tooth completed Brenda zurita MA [facility] 01/12/2019 09:34:35 Mammogram screening completed Brenda zurita MA [facility] 06/29/2016 15:20:32 Colonoscopy completed Brenda zurita MA [facility] 06/29/2016 15:20:36 Imaging Results None recorded. Procedure [...] completed RECORDED 12/14/19 10 9:55AM BY ANDREWS ONTIVEROS PALaraC, MEDICATI ON AUTO-CAMILLE CTIVATIO N; Not [...] 12/16 completed RECORDED 12/17/19 10 2:04PM BY CHINTAN STARKATI ON/ADDEN DUM; Not Available Not Available Not [...] 11/11 completed RECORDED 11/12/19 10 9:32AM BY CHINTAN SWEENEYATI ON/ADDEN DUM; Not Available Not Available Not [...] DateTime 01/08/2023 171.45 cm Mary Becerra MA [facility] 01/08/2023 15:48:36 Date Recorded Body height Body mass index (BMI) Body weight Heart rate Oxygen saturation Body temperature Systolic And Diastolic Provider Name and Address Organization Details Last Updated DateTime 3 171.45 cm 50.2 kg/m2 324460. 52 g 60 /min 97 % 98.3 [degF] 138/87 mm[Hg] Rupali Pedro [facility] [place] 3 15:56:22 Date Recorded Body height Body mass index (BMI) Body weight Heart rate Oxygen saturation Body temperature Systolic And Diastolic Provider Name and Address Organization Details Last Updated DateTime 3 171.45 cm 49.2 kg/m2 900569. 97 g 94 /min 96 % 97.8 [degF] 113/80 mm[Hg] [facility] 3 13:21:43 Date Recorded Body height Body mass index (BMI) Body weight Heart rate Oxygen saturation Body temperature Systolic And Diastolic Provider Name and Address Organization Details Last Updated DateTime 3 171.45 cm 48.1 kg/m2 802836. 82 g 68 /min 96 % 98.3 [degF] 160/98 mm[Hg] Isela Metz MA [facility] 3 14:57:00 Social History Question Answer Notes LastModified by Organizat ion Details LastModified Time Tobacco Smoking Status Former Smoker Cherie Garridoharlan deluna [facility] 05/18/2014 10:29:49 Do You Have An Advance Directive? No [email or web address] Information not available 06/20/2022 Is Blood Transfusion Acceptable In An Emergency? Yes [email or web address] Information not available 01/20/2016 What Is Your Level Of Caffeine Consumption? Occasional Information not available 12/29/2014 How Much Tobacco Do You Chew? None Information not available 06/29/2016 In The 14 Days Before Symptom Onset, Have You Had Close Contact With A Laboratory-confi rmed COVID-19 While That Case Was Ill? No [email or web address] Information not available 06/20/2022 In The 14 Days Before Symptom Onset, Have You Had Close Contact With A Person Who Is Under Investigation For COVID-19 While That Person Was Ill? No [email or web address] Information not available 06/20/2022 Have You Been To An Area Known To Be High Risk For COVID-19? No [email or web address] Information not available 06/20/2022 What Type Of Diet Are You Following? REGULAR [email or web address] Information not available 12/29/2014 Which Illicit Or Recreational Drugs Have You Used? None Information not available 06/29/2016 Live Alone Or With Others? With Others (Juan Carlso) And 2 Daughters Information not available 06/20/2022 Do You Take Precautions To Prevent Distracted Driving? Yes [email or web address] Information not available 01/20/2016 How Often Do You Need To Have Someone Help You When You Read Instructions, Pamphlets, Or Other Written Material From Your Doctor Or Pharmacy? Sometimes [email or web address] Information not available 01/20/2016 Have You Served [...] Of Your Most Recent Tobacco Screening? 06/20/2022 [email or web address] Information not available 06/20/2022 How Many Children Do You Have? 2 Adriana And Renee Information not available 03/27/2018 What Is Your Current Pack Years? 10packyears [email or web address] Information not available 06/20/2022 Do You Use Protection During Sex? No Information not available 06/29/2016 Seat Belts Used Routinely Yes [email or web address] Information not available 06/20/2022 Are You Sexually Active? Yes Information not available 06/29/2016 Smoke Alarm In Home Yes [email or web address] Information not available 06/20/2022 Are You Passively Exposed To Smoke? No Information not available 06/29/2016 General Stress Level Medium [email or web address] Information not available 06/20/2022 Do You Use Sunscreen Routinely? Yes [email or web address] Information not available 12/29/2014 How Many Years Have You Smoked Tobacco? 10 [email or web address] Information not available 12/29/2014 Sex: Unknown Functional Status Question Answer Note LastModified by Organizat ion Details LastModified Time Do you or have you ever used any other forms of tobacco or nicotine? No [email or web address] Information not available 06/20/2022 What is your level of alcohol consumption? Occasional [email or web address] Information not available 12/29/2014 Are you currently employed? Yes Information not available 12/29/2014 Are you able to walk independently without assistance or assistive devices? YESWOREST [email or web address] Information not available 06/20/2022 Are you able to care for yourself independently? 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 Occasional [email or web address] Information not available 02/02/2019 Mental Status None recorded. Family History Relationship Description Onset Age of this Age Resolved Age Notes LastModified by Organization Details LastModified Time Father Harmful pattern of use of alcohol Not available 2019 15:29:15 Notes:Pt is adopted [...] mcg/0.3 mL dose 02/28/2021 completed [place] [employer] [facility] 12/13/2021 11:25:33 COVID-19, mRNA, LNP-S, PF, 30 mcg/0.3 mL dose 03/21/2021 completed [place] [employer] [facility] 12/13/2021 11:25:33 MMR 10/21/2002 completed Not Available [facility] 03/09/2014 14:00:38 Tdap 06/12/2012 completed Not Available [facility] 03/09/2014 14:00:38 MMR 06/12/2012 completed Not Available [facility] 03/09/2014 14:00:38 Past Encounters Encounter ID Performer Location Encounter Start Date Encounter Closed Date Diagnosis/Indication Diagnosis SNOMED-CT Code Diagnosis ICD10 Code Diagnosis IMO Codes Diagnosis Note [id number] [facility] [address] [facility] [address] [place] [address] 11/13/2006 00:00:[id number] [place] [address] 12/23/2006 00:00:00 [id number] [address] [place] [address] 07/28/2007 00:00:00 [id number] autoEComm erce [address] [facility] [address] [place] [address] 12/06/2008 00:00:00 [id number] auto[facility] erce [address] [facility] [address] [place] [address] 03/25/2009 00:00:00 [id number] auto[facility] erce [address] [facility] [address] [place] [address] 04/28/2009 00:00:00 [id number] auto[facility]Comm erce [address] [facility],[address] [place] [address] 11/11/2009 00:00:00 [id number] auto[facility]Comm erce [address] [facility],[address] [place] [address] 12/20/2009 00:00:00 [id number] auto[facility]Comm erce [address] [facility],[address] [place] [address] 02/17/2010 00:00:00 [id number] auto[facility]Comm erce [address] [facility],[address] [place] [address] 07/25/2010 00:00:00 [id number] autoEComm erce [address] [facility],[address] [place] [address] 09/13/2010 00:00:00 [id number] autoEComm erce [address] [facility],[address] [place] [address] 11/11/2010 00:00:00 [id number] autoEComm erce [address] [facility] [address] [place] [address] 02/01/2011 00:00:00 [id number] auto[facility]Comm erce [address] [facility],[address] [place] [address] 02/05/2011 00:00:00 [id number] [address] [address]ce [address] [place] [address] 02/06/2011 00:00:00 [id number] auto[employer]Comm erce [address] [place] [address] 02/15/2011 00:00:00 [id number] autoEComm erce [address] [facility] [address] [place] [address] 03/08/2011 00:00:00 [id number] auto[employer]Comm erce [address] [facility] [address] [place] [address] 11/26/2011 00:00:00 [id number] autoEComm erce [address] [facility] [address] [place] [address] 11/30/2011 00:00:00 [id number] autoEComm erce [address] [facility],[address] [place] [address] 01/09/2012 00:00:00 [id number] autoEComm erce [address] [facility],[address] [place] [address] 03/25/2012 00:00:00 [id number] autoEComm erce [address] [facility] [address] [place] [address] 06/12/2012 00:00:00 [id number] autoEComm erce [address] [facility],[address] [place] [address] 07/08/2012 00:00:00 [id number] autoEComm erce [address] [facility],[address] [place] [address] 09/01/2012 00:00:00 [id number] autoEComm erce [address] [facility] [address] [place] [address] 09/05/2012 00:00:00 [id number] autoEComm erce [address] [facility] [address] [place] [address] 10/16/2012 00:00:00 [id number] autoEComm erce [address] [facility] [address] [place] [address] 12/15/2012 00:00:00 [id number] autoEComm erce [address] [facility],[address] [place], [place] [address] 05/09/2013 00:00:00 [id number] autoEComm erce [address] [facility],[address] [place], [place] [address] 07/27/2013 00:00:00 [id number] autoEComm erce [address] [facility],[address] [place], [place] [address] 12/25/2013 00:00:00 [id number] auto[employer]Comm erce [address] [facility],[address] [place], [place] [address] 01/16/2014 00:00:00 [id number] SARAH Agrawal Main Office [address] [facility] [address] [place] [address] 05/18/2014 10:10:59 05/18/2014 10:49:51 Dysuria 60805953 UA c/w UTI, will tx and send culture Acute pharyngitis 350611596 rapid strep neg. [id number] Juan Diego Cali MD Main Office [address] [facility] [address] [place] [address] 05/29/2014 11:51:21 05/29/2014 12:23:45 Cough 59110673 Sounds inflammato ry in nature likely post viral infection vs allergy related. No current evidence for bacterial process. Will address inflammati on/broncho constricti on while waiting to see if allergy rx helps. Would need re-eval and consider of abx/CXR if persistent or sputum becomes purulent. [id number] SARAH Velasco Main Office [address] [facility] [address] [place] [address] 06/08/2014 13:52:54 06/08/2014 14:36:30 Palpitations 93121614 likely the endocrine system resetting itself after being on prednisone . reassuranc e. call if worsening [id number] SARAH Agrawal Main Office [address] [facility] [address] [place] [address] 09/20/2014 11:26:27 09/20/2014 11:45:06 Backache 875182685 Continue cyclobenza tete and finish course of prednisone , just started 2d ago, if back pain persists/w malaika will refer to PT. [id number] William Johnson [facility] Main Office [address] [facility] [address] [place] [address] 11/08/2014 09:40:15 11/08/2014 10:41:46 Acute pharyngitis 795948641 Cough 36942109 with fever and body aches on day 6, suspect bacterial process such as pneumonia. will treat empiricall y. f/u if worsening [id number] William Arteagaандрей [facility] Main Office [address] [place], [place] [address] 11/17/2014 16:24:25 11/17/2014 17:32:05 Palpitations 29833511 Atrial fibrillation 26731574 new onset with RVR. not clear if pain in her upper back is related to the afib. to ER for lowering HR and further assessment for new onset afib Neck pain 43379143 with radiating sxs. likely a cervical radiculopa thy. but it is possible that it is something cardiac related to the afib. will be further assessed in the ER. [id number] [facility] Main Office [address] [facility] [address] [place], [place] [address] 11/23/2014 13:19:45 11/23/2014 14:23:50 Atrial fibrillation 38654293 rate wel l controlled . she will f/u with cardio as planned. Spinal guerrero nosis in cervical region 30555190 concerning that she has a positive babinski [...] before next visit in 2 wks. Snoring 02214607 Thyroid nodule 399889724 Insomnia 457510901 see abo ve discussion about gabapentin [id number] Omayra rush MD Main Office [address] [facility] [address] [place] [address] 12/13/2014 14:13:19 12/13/2014 14:49:18 Atrial fibrillation 36890059 on meds below and doing well continue followup with cardiology Degenerati on of cervical intervertebral disc 71962536 trial of tramadol Thyroid nodule 936353692 p t will get thyroid nodule looked at, most likely will get biopsy Edema 004917877 [id number] Omayra rush MD Main Office [address] [address] [place] [address] 12/29/2014 09:06:58 12/29/2014 10:00:23 Adult health examination 788198901 utd on screening Degenerati on of cervical intervertebral disc 45378889 pt is on tramadol and it helps, still having pain, pt is waiting for PT apt, will have my staff call and check on it Atrial fibrillation 33489752 on meds below and doing well continue followup with cardiology , only on FS asa and cartia, continue Thyroid nodule 521875034 n eedle biopsy later this month, will hold asa for 5 days prior and then will ask thyroid surgeon when she can restart, keep on all other rmeds Edema 650006809 [id number] SARAH Love Main Office [address] [address] [place] [address] 08/03/2015 11:18:40 08/03/2015 11:44:57 Cough 17499272 R05 Symptomati c treatment- lots of fluids, rest, tea with honey, OTC cough drops/ cough med as needed, humidifier as needed. Tylenol or ibuprofen for fever/ pain. Return for worsening/ concerns. [id number] Bela Mondragon PA-C Main Office [address] [address] [place] [address] 12/19/2015 09:57:59 12/19/2015 11:39:30 Palpitations 45893748 R00.2 Rapid atri al fibrillation 767322182 I48.91 Pt. is referred by ambulance to [facility] ER for management of rapid arrhythmia . PT. was maintained on O2 by nasal canula on 2L until paramedics arrived. Pt. will be seen in hospital f/u after the discharge and sleep study will be arranged for her. Note faxed to ER. [id number] Bela Mondragon PA-C Main Office [address] [facility] [address] [place] [address] 12/21/2015 10:51:33 12/21/2015 11:58:58 Paroxysmal atrial fibrillation 285515576 I48.0 Recommend to avoid alcohol. Check TSH and CBC. Schedule echocardio gram and sleep study. Consider cardiac referral. Panic disorder 631925721 F41.0 Pt. is on Tramadol for neck pain which will interact with SSRIs. Will recommend to restart counseling [facility] and use Lorazepam PRN for panic attacks. PT. will address this at f/u with PCP. Snoring 62967024 R06.83 Sleep study referral is made to do RIVER. [id number] Omayra rush MD Main Office [address] [facility] [address] [place] [address] 01/02/2016 13:10:18 01/02/2016 14:49:25 Paroxysmal atrial fibrillation 375566224 I48.0 2 documented episodes total, one in 12/09 and one a year ago. THe one in in 12/09 was after heavy drinking the night before, pt with a small PFO on Echo, will start a baby aspirin and see dR Brandt tomorrw Edema 215404180 R60.9 continue hctz Pain of joint 48518223 M 25.50 pt with diffuse joint pain, she finds she is so much more comfortabl e on tramadol 100mg bid Patent foramen ovale 204 896201 Q21.1 seen on echo, started pt on a baby aspirin today Anxiety 78020632 F41.9 will work on this and her eating issues, she feels she is addicted to food. meetin with Gretta today [id number] Omayra rush MD Main Office [address] [place] [address] 01/20/2016 14:12:02 01/20/2016 15:11:46 Adult health examination 668250577 Z00.00 utd on screening Screening for malignant neoplasm of breast 705170902 Z12.39 pt will arrange Patent foramen ovale 204 934464 Q21.1 seen on echo, started pt on a baby aspirin and cardiology has reviewed with her Paroxysmal atrial fibrillation 155757160 I48.0 2 documented episodes total, one in [...] a shorter monitor she could do Edema 556327562 R60.9 continue hctz [id number] Omayra rush MD Main Office [address] [facility] [address] [place] [address] 06/06/2016 13:54:52 06/06/2016 14:26:07 Atrial fibrillation 35680706 I48.91 regular rhythmn today, on baby aspirin, no recent episodes. one was associated with alcohol in the past Acute pharyngitis 903220 003 J02.9 neg quick strep, seems viral Cough 89905156 R05 use cough med no abx needed [id number] Lan Oliver MD Main Office [address] [address] [address] 06/09/2016 10:25:58 06/09/2016 11:21:14 Cough variant asthma 599139471 J45.991 She was instructed to call next week if her symptoms persist. This may be a URI which has set off asthma. [id number] Bela Mondragon PA-C Main Office [address] [address] 06/11/2016 10:46:37 06/11/2016 11:26:31 Asthmatic bronchitis 126138809 J45.909 R/o pneumonia. Chest XRAy to be done. Continue Prednisone . Taper down to 40 mg for 2 days, 30 for 2 days, 20 for 2, 10 for 2. UP draft with Albuterol given in the office. Continue cough meds , rest and fluids. [id number] SARAH Love Main Office 3640 [facility] [address] [place] [address] 06/29/2016 15:09:06 06/29/2016 15:58:04 Acute bacterial bronchitis 930262613 J20.9 Improving though she does still have a cough, will repeat CBC to check WBC. Continue inhaler/ cough med as needed. Elevated blood-pressure reading without diagnosis of hypertension 165442984 R03.0 High BP today, patient notes her BP has been higher lately, will have her f/u in 2 weeks for recheck of BP and she will have BMP done. [id number] Bela Mondragon PA-C Main Office [address] [address] [place] [address] 07/30/2016 13:44:57 07/30/2016 14:59:36 Benign essential hypertension 5747226 I10 [id number] Bela Mondragon PA-C Main Office [address] [address] [place] [address] 10/26/2016 14:44:08 10/26/2016 15:35:24 Acute pharyngitis 656822594 J02.9 Sat water gargles and take OTC pain meds. Elevated blood-pressure reading without diagnosis of hypertension 789226642 R03.0 BP remains borderline . Pt. is on HCTZ 25 mg and is recommende d to continue. Repeat BMP. F/u with PCP in 3-4 m. Keep low sodium and low caffeine diet. [id number] Juan Diego Cali MD Main Office [address] [address] [place] [address] 10/27/2016 10:46:26 10/27/2016 11:22:38 Acute pharyngitis 890257287 J02.9 Given active abx therapy which should [...] swallow oral secretions . Exudative pharyngitis 12 5817125 J02.9 [id number] Cabrera Modnragon PA-C Main Office [address] [address] [place] [address] 10/30/2016 08:51:17 10/30/2016 09:54:13 Acute pharyngitis 578624604 J02.9 strep neg, but persists despites 10 days of amox - ? monet-tonsi lar abscess - see below Dental abscess 888131794 K04.7 s/p amox x 10 days - next f/u 3.28 for tooth extraction Peritonsillar abscess 15 105215 J36 ? caused by dental abscess? Low back pain 212031602 M54.5 Impacted cerumen 7718117 6 H61.21 mild - mod R ear [id number] Omayra rush MD Main Office 3640 [facility] [address] [place] [address] 11/26/2016 08:54:30 11/26/2016 09:29:41 Amenorrhea 78597305 N91.2 neg test Gastroesop hageal reflux disease 986223677 K21.9 untx, quite symptomati c, that is what nausea is form, tx and check h pylori Nausea 124344252 R11.0 due to GERD return 6 weeks, check any discomfort after eating is resolved, if not refer to GI Body mass index 40+ - severely obese 418761341 Z68.41 Obesity 143473857 E66.9 [id number] Omayra rush MD Main Office 3640 [facility] [address] [place] [address] 01/25/2017 14:31:24 01/25/2017 15:18:18 Adult health examination 685325738 Z00.00 utd on screening except mammogram, pt iwll arrange, needs to work on diet and exercise Screening for malignant neoplasm of breast 849901163 Z12.39 pt will arrange Urinary incontinence 165 749960 R32 on meds Morbid obesity 118788738 E66.01 Obesity 252009474 E66.9 Paroxysmal atrial fibrillation 226253674 I48.0 2 documented episodes total, one in [...] trigger for afib Pain in right knee 06554 48456 89833 M25.561 Sleep apnea 38145852 G47 .30 pt tested positive but has not gotten CPAP yet, needs to make a visit [id number] SARAH Love Main Office [address] [place] [address] 10/10/2017 15:31:26 10/10/2017 16:02:27 Wheezing 67676451 R06.2 Cough 68584046 R05 Symptomati c treatment- lots of fluids, rest, tea with honey, OTC cough drops/ cough med as needed, humidifier as needed. Tylenol or ibuprofen for fever/ pain. Return for worsening/ concerns. Delsym OTC. Acute bronchitis 4312764 2 J20.9 Pain in right knee 48109 58786 73454 M25.561 had been on tramadol then lost her insurance, requests refill. will fill x 1 month and she will need f/u with PCP to get re-establi shed with med. [id number] Cabrera Mondragon PA-C Main Office [address] [place] [address] 10/28/2017 15:53:21 10/28/2017 17:35:33 Cough 56355739 R05 check cxr to r/o pna -- ? d/t pnd Pain of right wrist 3169 352167 61855 M25.531 ? CTS - neg tinels/pha lens/finkl estein -- will get OT eval and rec use wrist splint hs Allergic rhinitis 753649 04 J30.9 Asthma 377122610 J45.20 [id number] Cabrera Mondragon PA-C Main Office [address] [address] 11/18/2017 13:44:44 11/18/2017 15:46:12 Cough 93956336 R05 neg cxr, less but persists - pt concerned - see below Dyspnea 262172626 R06.00 nl ekg and spirometry - offered re-assuran ce Asthma 044409616 J45.20 will check spirometry - see above - yue nl, but pt used to take advair yrs ago and states she feels like her lungs are still inflamed/h ave a lot of mucous - will give trial of ICS to see if help Paroxysmal atrial fibrillation 305363349 I48.0 no problems c this in a long time - see above Obstructiv e sleep apnea syndrome 92429934 G47.33 no get cpap machine - encouraged pt to f/u c sleep med Seasonal a llergic rhinitis 034809588 J30.2 cont singulair as dir [id number] Omayra rush MD Main Office 3640 [facility] [address] [place] [address] 01/27/2018 10:50:09 01/27/2018 11:48:58 Adult health examination 818180454 Z00.00 , needs to work on diet and exercise, eats a lot of bread and pasta, pt needs ot get temptation s out of the house, pt tos et up physician gynecologist appt, is overdue Screening for malignant neoplasm of breast 208818243 Z12.39 pt will arrange Lymphedema of lower extremity 206251126 I89.0 better on meds Asthma 535401702 J45.90 9 pt will restart Body mass index 40+ - severely obese 535331574 E66.01 Z68.41 pt to lower carbs, hard for her to keep on the healthy eating track. [id number] Cabrera Mondragon PA-C Main Office 3640 [facility] [address] [place] [place] [address] 03/27/2018 11:24:04 03/27/2018 12:19:20 Lateral epicondylitis 757561630 M77.11 will give 2 options of TE support - she will decide which is covered better / fits better, as well as rec wrist support at hs d/t her sleeping position (R hand bent under head - full wrist flexion), and get pssp eval [id number] Cabrera Mondragon PA-C Main Office 3640 [facility] [address] [facility] [place] [address] 06/11/2018 09:23:10 06/11/2018 10:12:36 Body mass index 40+ - severely obese 269918465 Z68.42 urged pt to see nutritioni in [place], and if no sig improvemen t then [...] counseling and/or coordinati on of care. Fatigue 66590278 R53.83 Anxiety 02985374 F41.9 see above re: therapist Morbid obesity 284091150 E66.01 [id number] Omayra rush MD Main Office [address] [place] [address] 07/30/2018 10:40:47 07/30/2018 11:37:06 Acute asthma 757442730 J45.901 not on any control meds, will start inhaled steroid, pre proair and singulair and return in 3 months will get spirometry then [id number] Juan Diego Cali MD Main Office [address] [place] [address] 01/12/2019 09:27:00 01/12/2019 10:40:07 Indigestion 421100724 K30 regular diet, avoid offending foods. Trial of PPI and check for recurrence of hpylori. Has followup with Dr Veena Mccarthy in a month Pain in left knee 297776 8704 40578 M25.562 PT, discuss at followup, will try physical therapy, pt has multiple joint pains for years Diarrhea 63056257 R19.7 ? IBS, try daily fiber and probiotic, followup in a month, if not better consider GI eval. Pt can try dairy eliminatio n for a week, does not have symptoms of gluten intoleranc e. [id number] Omayra rush MD Main Office [address] [address] 02/02/2019 15:28:28 02/02/2019 16:19:18 Adult health examination 692037516 Z00.00 eating better, wants to lose weight, is due for mammogram Screening for malignant neoplasm of breast 178495384 Z12.39 we will arrange due to lack of followthfo ugh Patent foramen ovale 204 680926 Q21.1 seen on echo, started pt on a baby aspirin and cardiology has reviewed with her Paroxysmal atrial fibrillation 518873242 I48.0 2 documented episodes total, one in [...] during the week. Lymphedema of lower extremity 742965895 I89.0 better on meds, continue hctz Obstructiv e sleep apnea syndrome 82996644 G47.33 pt ot see sleep medicine again, should retry cpap Body mass index 40+ - severely obese 512136980 E66.01 Z68.42 pt to lower carbs, hard for her to keep on the healthy eating track. [id number] Juan Diego Cali MD Main Office 67[address] [facility] [address] [facility] [address] 04/07/2019 13:19:55 04/07/2019 14:23:48 Pain in left knee 3333239697 28474 M25.562 ? PFS vs other - will [...] on of care. Gastroesop hageal reflux disease 880711517 K21.9 [id number] Omayra rush MD Main Office 3580 [facility] [address] [place] [address] 12/31/2019 13:03:19 12/31/2019 14:22:13 Asthma 146199644 J45.909 pt will restart med Urge incon tinence of urine 00993073 N39.41 urology had patient on oxybutynin . will restart Lymphedema of lower extremity 192900375 I89.0 better on meds, will try chlorthali done [id number] Ph[facility] [place] [address] [place] [address] 01/08/2020 15:07:08 01/11/2020 08:39:09 Indigestion 883762587 K30 most likely in response to starting sertraline . Pt tried taking Tums but had no relief. WE will try PPI over the week end and if still having indigestio n discomfort , call after the weekend and be seen in the office to check her EKG. Generalize d anxiety disorder 55060984 F41.1 contineu SSRI as prescribed by psych. MIght be experienci ng symptoms of indigestio n due to SSRI as well. Lymphedema of lower extremity 010484581 I89.0 continue diuretic, but pt. was advised to have labs done not later than after the week end. [id number] Lan Oliver MD [place] [address] [place] [address] 04/01/2020 07:58:50 04/01/2020 15:09:46 Abdominal pain 80884376 R10.9 She will try simethicon e. There was nothing on her history that warranted immediate attention and she was advised to call the office in the am if it persisted. [id number] Omayra rush MD [place] [address] [place] [address] 04/22/2020 06:41:45 04/24/2020 10:57:02 [id number] Omayra rush MD Main Office [address] [place] [address] [place] [address] 05/30/2020 15:06:28 05/30/2020 16:57:55 Adult health examination 137825570 Z00.00 Pt has concerns about her weight and is under stress with family and work. Social and family history reviewed. Immunizati ons reviewed, advised annual flu shot, will get at [facility] as we do not have any in stock at this time. . She is not up to date on dental and eye providers, mammogram due, physician gynecologist due Reviewed diet and exercise at length, counseling > 25 min Generalize d anxiety disorder 80335160 F41.1 pt agrees to call her counselor to discusss issues especially her wt and eating compulsion . declines medication at this time. NO SI or HI, Addiction 47842083 R46.8 1 Pt feels she has a food addiction, recommende d to go to OA or call to see if any virtual meetings. Most of the appt spent talking about food, eating and stress/anx iety related to this. She will reach out to the counselor, suggested some ideas for this. Elevated blood-pressure reading without diagnosis of hypertension 903825440 R03.0 Pt under stress today, tearful, recheck at next ov Mild inter mittent asthma 583664435 J45.20 stable at this time, uses montelukas t Morbid obesity 000314850 E66.01 Pt will look into OA program. Suggested lowering carbs, more protein, no meal skipping and tips to avoid night eating. Advised to try and me more active. Short term followup [id number] Omayra rush MD Main Office 3640 [facility] [address] [place] [address] 12/28/2020 10:59:55 12/28/2020 14:58:13 Cervical radiculopathy 65915375 M54.12 Will do a trail of NSAID [...] compress.N willow exercises provided. Urinary incontinence 165 682052 R32 She was on oxybutynin 20 ER, she has a hx of small bowel obstructio n she requested a refill at that dose, given hx of small bowel obstructio n I think it might not be a bad idea for patient to discuss with urology if other options can be explored and she agreed to this. Medial epicondylitis 532 32476 M77.01 Will do trial of NSAID, Patient aware risk of GI bleed as she is also on elaquis. She was told to take with meal. If any signs of bleeding she was asked to stop and let us know. [id number] Omayra rush MD Main Office 3640 [facility] [address] [place] [address] 01/09/2021 15:56:27 01/10/2021 09:57:35 Paroxysmal atrial fibrillation 879076802 I48.0 pt is followed by cardiology , remains on eliquis, flecanide and metoprolol for now. Seems to be in NSR today, no sx. Advised to consider sleep studay repeat and work on wt loss. Pt wiil consider Body mass index 40+ - severely obese 319525871 E66.01 Z68.41 Pt will decide on strip machine operator appt, will try cutting back, walking. Discusse OA program Generalize d anxiety disorder 01755118 F41.1 pt agrees to continue with her counselor to discuss issues especially her wt and eating compulsion . declines medication at this time. NO SI or HI, [id number] Omayra rush MD Main Office 3640 [facility] [address] [place] [address] 01/25/2021 14:49:47 01/25/2021 16:14:43 Cervical radiculitis 01609150 M54.12 trial of short pred taper to decrease inflammati on with radiculopa thy. Side effects reviewed. Cervical radiculopathy 94620243 M54.12 stay on gabapentin , can use bid if not too drowsy, or can use 2 at bedtime Acute thor acic back pain 255947903 M54.6 check xay, do stretches, advised PT, pt will consider Body mass index 40+ - severely obese 564569734 E66.01 Z68.41 pt would like to see strip machine operator, will do a referral [id number] Omayra ursh MD [facility] [address] [facility] [address] [place] [address] 02/13/2021 08:33:32 02/13/2021 14:20:43 Tendinitis of right elbow 6503258461 4640647 M67.823 continued right elbow pain, sounds like tendonitis , ice and set up appt at [facility] for cortisone injection Pain of le ft shoulder blade 002334488 M25.512 pt with muscular pain around left scapula into neck and shoulder, most likely related to muscular pain form poor posture, left sided pectoralis insertion pain on and off, does not feel like pts cardiac pain and it is positional , no need for cardiac eval. pt to set up PT, use a roller on upper back Pain of le ft shoulder joint 9521156811 6062021 M25.512 related to muscular pain from neck and back [id number] Omayra rush MD Main Office [address] [facility] [address] [place] [address] 06/23/2021 13:56:44 06/23/2021 15:13:56 Adult health examination 106039095 Z00.00 Pt has concerns about her weight and is under stress with family and work but stable at this time. Social and family history reviewed. Immunizati ons reviewed, advised annual flu shot,, will be due for Tdap next year . She is not up to date on dental and eye providers, mammogram due, physician gynecologist due Reviewed diet and exercise at length, counseling > 25 min Generalize d anxiety disorder 18105601 F41.1 pt agrees to continue with her counselor to discuss issues especially her wt and eating compulsion . declines medication at this time. NO SI or HI, Spent time disussing family issues around teen age daughter Paroxysmal atrial fibrillation 516036826 I48.0 pt is followed by cardiology , remains on eliquis, flecanide and metoprolol for now. Seems to be in NSR today, no sx. Advised to consider sleep study repeat and work on wt loss. Pt wiil consider sleep evaluation Mild inter mittent asthma 104215911 J45.20 stable at this time, has proair prn Morbid obesity 610665244 E66.01 Pt will look into strip machine operator. Suggested lowering carbs, more protein, no meal skipping and tips to avoid night eating. Advised to try and me more active. Screening for malignant neoplasm of breast 888192607 Z12.39 [id number] Omayra rush MD Main Office 3640 [facility] [address] [place] [address] 12/13/2021 07:41:49 12/13/2021 11:53:08 [id number] Omayra rush MD [facility] [address] [place] [address] 04/08/2022 15:01:10 04/09/2022 10:56:34 Pain in right arm 068284120 M79.601 had to call into a different pharmacy, first one closed will treat for 2 days since weekend then needs in person appt, could be radicular pain, unable to tell without exam [id number] Juan Diego Cali MD Main Office 3640 [facility] [address] [facility] [place], [place] [address] 04/18/2022 14:48:18 04/18/2022 16:00:22 Cervical radiculitis 33484581 M54.12 will get pmr eval, and give trial of gbn -- could consider tyl 500mg 1-2 tabs up to 3x/day as well Paroxysmal atrial fibrillation 285688200 I48.0 encouraged pt to resume eliquis as per card - if too $$, then consider coumadin [id number] Omayra rush MD Main Office 3640 [facility] [address] [place] [address] 06/20/2022 13:57:16 06/20/2022 15:17:51 Adult health examination 891725157 Z00.00 Pt has concerns about her weight and is under stress with family and work but stable at this time. Social and family history reviewed. Immunizati ons reviewed, advised annual flu shot, due for Tdap, covid booster. She will do appt at the pharmacy. She is not up to date on dental and eye providers, mammogram due, physician gynecologist due Reviewed diet and exercise at length Generalize d anxiety disorder 48197587 F41.1 pt agrees to continue with her counselor to discuss issues especially her wt and eating compulsion . declines medication at this time. NO SI or HI, Spent time discussing family issues Paroxysmal atrial fibrillation 409334157 I48.0 pt is followed by cardiology , remains on eliquis, flecanide and metoprolol for now. Seems to be in NSR today, no sx. Advised to consider sleep study repeat and work on wt loss. Pt will consider sleep evaluation Mild inter mittent asthma 982545302 J45.20 stable at this time, has proair prn Morbid obesity 509116968 E66.01 Pt will look into strip machine operator. Suggested lowering carbs, more protein, no meal skipping and tips to avoid night eating. Advised to try and me more active. Screening for malignant neoplasm of breast 914178876 Z12.39 Body mass index 40+ - severely obese 467937237 Z68.43 pt would like to see strip machine operator, will do a referral [id number] Juan Diego Cali MD Main Office [address] [place] [address] 09/26/2022 15:38:56 09/26/2022 16:43:10 Mild intermittent asthma 932062418 J45.20 rec cont montelukas t as dir, advised pt on how to use flovent x few wks - when feeling better can stop, but cont alb 5-30min ac exercise in future Paroxysmal atrial fibrillation 683210680 I48.0 cont meds, f/u c card as dir Obstructiv e sleep apnea syndrome 05855987 G47.33 seen by sleep med earlier today, will get updated sleep study Dyspnea 603492307 R06.00 negative cardiac w/u - ? d/t asthmatic bronchitis / post viral syndrome vs deconditio ashlee / obesity -- check probnp Impaired f asting glycemia 396112924 R73.01 Fatigue 36410020 R53.83 Pain of le ft hip joint 3919154323 40058 M25.552 check xray - pain x several months - r/o djd - if sig, then get ortho eval [id number] Juan Diego Cali MD [facility] [address] [facility] [address] [place] [address] 12/04/2022 08:29:26 12/04/2022 10:25:23 Cough 83545409 R05.9 rec celine or mucinex, suspect pnd == sinusitis - see below Acute sinusitis 04056541 J01.90 rec cont ns spray prn, consider warm washcloth to side of neck recommend probiotics while on abx Acute conjunctivitis 094 70938 H10.33 she left her contacts in for ~ 48 hours - suspect corneal ulceration - strongly encouraged pt to see her eye md, meanwhile will rx c abx eye ointment [id number] Juan [facility] [address] [facility] [address] [place] [address] 01/08/2023 15:46:57 01/08/2023 16:25:29 Urinary tract infectious disease 78475240 N39.0 pt declines giving urine sample, so will rx empiricall y c cipro cont push fluids, consider cranberry juice, also consider prn pyridium recommend probiotics while on abx Seasonal a llergic rhinitis 613859110 J30.2 rec resume singulair as dir, or consider claritin, cont prn ns spray to help lessen pndrtc next week (needs ov not TH) if cough persists [id number] Juan Diego Cali MD Main Office [address] [place] [place] [address] [place] [address] 04/17/2023 15:26:53 04/17/2023 16:56:58 Left lateral elbow tendinopathy 5655459287 16223 M77.12 trial c TE support, cool compress prn, wrist splint o/n -- if no better call us - consider ortho for sandoval injxn Skin lesion 93902141 L98 .9 most likely epidermoid cyst - will get derm eval, ? may need to see general surgeon if they cannot remove Pain in bi lateral feet 0337457394 0978833 M79.671 better lately, no evidence / suspicion of fx [id number] Giorgio Machado MD Main Office [address] [place] [address] [place] [address] 04/19/2023 13:10:00 04/19/2023 13:40:50 Abdominal pain 10759281 R10.9 Acute abdomen, refer to emergency department . PT. refused to go by ambulance. Will drive to [facility]. Call ahead placed to [facility]. [id number] MOLLY LAM MD Main Office [address] [address] [place] [address] 04/26/2023 10:09:45 05/10/2023 16:14:02 [id number] ДМИТРИЙ TAYLOR Main Office [address] [place] [place] [address] [place] [address] 07/24/2023 14:43:32 07/24/2023 15:27:47 Cough 05176105 R05.9 -in office RSV, flu, and covid are negative-d iscussed OTC interventi ons to help with a cough Acute sinusitis 84679300 J01.90 -x3 weeks of symptoms of sinus pressure, nasal congestion , cough, post nasal drip, and sore throat-guanakito al decongesta nts provide minimal relief-exp osed to other coworkers with similar symptoms-P E revealed sinus tenderness to the frontal sinus, erythemato us posterior oropharynx and nasal discharge- will start pt on augmentin x10 day course Mild inter mittent asthma 563027388 J45.20 per pt request, refill Health Concerns Section Related Observation LastModified by Organization Detai ls LastModified Time None Recorded Concern Status LastModified by Organization Details LastModified Time None Recorded Advance Directives Directive N: Payers Insurance Date Sequence Insurance Name Policy Number Policy Pollard Covered Member ID Pollard Member ID Guarantor Name 12/13/2020 1 [facility] - DIRECT CONNECTORCARE TYPE I (HMO) [id number] Steph Neal [id number] Steph Neal 03/19/2024 1 [facility] - DIRECT CONNECTORCARE TYPE I (HMO) [id number] Steph Neal [id number] Steph Neal 09/09/2014 1 [facility] - [facility] (MEDICAID REPLACEMENT - HMO) [id number] Steph Neal [id number] Steph Neal 10/10/2017 2 [place] [facility] Steph Neal [id number] Steph Neal 06/23/2021 PAYMENT PLAN Steph Neal 10/10/2017 1 [facility] - MEDICAID ESSENTIAL (MEDICAID HMO) [id number] Steph Neal [id number] Steph Neal 12/13/2020 2 [facility] - DIRECT CONNECTORCARE TYPE I (HMO) Steph Neal [id number] Steph Neal Notes Date Note Type Note Provider Name and Address Organization Details Recorded Time 3 text/html Patient has been having urinary Pressure and frequency . Patient has noticed spasms after urinating since Saturday. no f/c, hematuria Cabrera Mondragon PA-C [address] [address], [place], [address], [facility] 01/08/2023 16:19:43 3 text/html pt had B foot pain x few wks, up until recently - now resolvedcurr c/o L elbow painno trauma to feet or LUEdoes sleep c L wrist flexed occ.also c/o lesion on her back - boyfriend is concerned, no pus dc, no f/c Cabrera Mondragon PA-C [address], [place], [address], [facility] 04/20/2023 13:37:29 3 text/html ROS as noted in the HPI 47 year old female c/o acute R. mid to lower abdominal pain started yesterday morning and gradually worsened in severity. Non radiating, no nausea. NO fever, chills. NO prior h/o similar pain, renal calculi. Urine with hemolyzed trace of blood and ketones. Bela Mondragon PA-C [address], [place], [address], [facility] 04/19/2023 14:39:26 3 text/html Hospitalization Contact RecordReported by PatientHospitalization Contact RecordFor follow up, [facility],admit date: (please enter in format 'mm/dd/yyyy') (04/19/2023),date of discharge: (please enter in format 'mm/dd/yyyy') (04/23/2023), anddate of contact: (please enter in format 'mm/dd/yyyy') (04/26/2023).Medicare covered inpatient stay? noTOC with in 48 working hours? yes HCP on file? yesMOLST on file? noDischarge Summary available? yes Pt presented to [facility] on 04/19/23 due to 2.5 days [...] hrs prn pain (30 tabs). [facility]JU Sewell, [facility] 05/10/2023 16:14:01 3 text/html Sinusitis/AllergyReported by PatientHPIFor associated symptoms, patient reportsheadache __,facial pain bilaterally, andsinus pain cheekbut reportsno fever,no nausea or vomiting, andno sore throat. For quality, patient reportscongested,colored phlegm, andproductive cough. For context, patient reportsrecent sick contacts. For location, patient reportsmaxillaryandfrontal. For prior treatment, patient reportstopical decongestant. For alleviating factors, (relief with hot showers/steam).ROS as noted in the HPI Steph presents for possible sinus infection. Reports [...] sob, or chest pain. 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 Requests RSV + flu testing. Home covid test is negative. Lan Oliver MD [address] [address], [place], [address], [facility] [place] 07/30/2023 09:10:02 OBGyn Episode No OBEpisode recorded.
== END ==
LOC: HO.CARD 15:02
DX: R42 Dizziness and giddiness (principal)
CPT/HCPCS: 93306; Q9957

== ENCOUNTER → 2025-07-14 15:04 | Outpatient (BNV) | payer OTHER, SELFPAY | PROVIDERS: Visit Provider Internal Medicine | DX: I48.0 Paroxysmal atrial fibrillation (principal); R42 Dizziness and giddiness | CPT/HCPCS: 93306 ==

== ENCOUNTER 2025-08-09 14:18 | Outpatient (AMB) | payer MEDICAID, SELFPAY ==
[2025-08-09 14:21] VITALS: BP 132/72; PULSE 70; BMI 51.1
--- NOTE | 2025-08-09 14:21 | A.OFFVIS_ITS ---
Vital Signs 08/09/25 14:21 Height 5 ft 8 in Weight 335 lb 15.752 oz BMI 51.1 BP 132/72 Blood Pressure Location Rt brachial Position Sitting Pulse 70 Pulse Source Monitor Intake Visit Reasons: 4 mth f/up-echo r/s 07-21-25 Healthcare Administrator Required: No Accompanied by: Self / Same As Patient Allergies No Known Allergies (No Known Allergies*) Allergy (Verified 08/09/25 14:24) Medication List - Last Reconciled 08/09/25 by Lonnie Magallon NP acetaminophen (Tylenol) 650 mg (2 x 325 mg) PO Q4H PRN albuterol-budesonide 90-80 mcg/actuation 2 inhalations inhalation DAILY PRN apixaban (Eliquis) 5 mg PO BID flecainide 50 mg PO BID levonorgestrel (Mirena) intrauterine mecobalamin (vitamin B12) 1,000 mcg sublingual DAILY metoprolol succinate ER 25 mg PO DAILY HPI Comments Details: This is a 50-year-old female patient coming in for a follow-up visit. Patient with a history of morbid obesity and AFib on flecainide therapy. At her last visit, patient was reporting ongoing dizziness for which we had recommended completing a Holter and an echo study. Patient has completed a echo but has not completed her Holter. Patient states that she has been feeling well overall without any recurrence in dizziness and therefore would like to hold off on the Holter study. Patient is otherwise reporting feeling well overall without any cardiac symptoms of exertional chest pain, shortness of breath, palpitations, dizziness, orthopnea, PND, leg edema, presyncope or syncope. Patient previously was on weight loss medication and has been successful in losing weight however patient states that due to insurance issues patient was stopped on the medication and has gained all her weight back. Patient is very interested in going back on weight loss regimen. Patient is otherwise reporting compliance with all medications. [facility] Medical History (Updated 08/09/25 @ 14:52 by Lonnie Magallon NP) Dizziness Sleep apnea, obstructive Asthma Atrial fibrillation Surgical History History of knee surgery History of appendectomy Family History Other Adopted Social History Household Members: Family Housing: Apartment Do you presently have visiting nurse or other home services: No Alcohol intake: current Alcohol intake frequency: holidays/special occasions only Comment: Socially Patient Tobacco Use Status: Former Tobacco user Cigarette Packs Per Day: 0.5 Years Smoked: 15 +/- e-Cigarette/Vaping Use: Never Used Second Hand Smoke Exposure: Yes service: No Current occupational status: employed 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 Cognitive needs: No Hearing needs: No Vision needs: No Review of Systems Const Denies daytime sleepiness, Denies difficulty sleeping, Denies snoring, Denies stops breathing during sleep and Denies weakness Card Denies chest pain, Denies rapid heart rate, Denies irregular heart rhythm, Denies claudication, Denies leg edema, Denies lightheadedness, Denies palpitations, Denies dyspnea, Denies dyspnea on exertion, Denies orthopnea, Denies paroxysmal nocturnal dyspnea and Denies slow heart rate Resp Denies cough, Denies dyspnea, Denies dyspnea on exertion and Denies snoring GI Reports no additional complaints, Denies hematochezia, Denies change in stool character and Denies dyspepsia Musc Denies abnormal gait, Denies muscle weakness and Denies numbness Neuro Denies abnormal gait, Denies numbness and Denies weakness Endo Denies palpitations Physical Exam Vital Signs: Last Vital Signs Pulse 70 08/09/25 14:21 BP 132/72 08/09/25 14:21 BMI result Body Mass Index 51.1 Const General: cooperative, healthy appearing, comfortable and no acute distress Orientation/consciousness: patient oriented x3 HEENT Head: Yes normal to inspection Neck Neck: Yes normal visual inspection, Yes trachea midline and Yes supple Chest Chest palpation & inspection: normal inspection of the chest Resp Effort & Inspection: normal respiratory effort Auscultation: clear to auscultation bilaterally, no crackles, no rales, no rhonchi and no wheezes Cardio Jugular venous distension: no JVD Palpation: normal PMI Rate: regular rate Rhythm: regular rhythm Heart sounds: S1 normal heart sound present, S2 normal heart sound present, no click, no gallops, no murmurs and no rubs Peripheral pulses: Peripheral pulses 2+ throughout GI Inspection: Yes normal to inspection Palpation (GI): Soft to palpation Auscultation: normal bowel sounds Skin General skin exam: no rashes or lesions noted Neuro General: patient oriented x3 Extrem General: Yes normal to inspection, No no pedal edema and No calf tenderness Psych Appearance: grossly normal Mental Status: mental status grossly normal Speech and movement: Normal speech and movement present Office Procedures EKG Details: EKG today showed normal sinus rhythm, rate 70 beats per minute, [place], [place]. [address]-[id number], Complete Assessment & Plan Assessment & Plan (1) Atrial fibrillation: Comment: Code(s): I48.91 - Unspecified atrial fibrillation Category: Medical Qualifiers: Atrial fibrillation type: paroxysmal Qualified Code(s): I48.0 - Paroxysmal atrial fibrillation Plan: History of paroxysmal AFib who had undergone cardioversion and is now on flecainide therapy. Continue flecainide and metoprolol for rhythm and rate control. Continue Eliquis for full anticoagulation. No reported signs of bleeding. EKG today is normal rhythm. Previously we had planned for an echocardiogram and a repeat Holter to check for AFib recurrence given her symptom of dizziness however patient has decided to hold off on Holter study as she has been feeling well overall without any recurrence in dizziness. 07/14/2025- Echo study showed a normal LV systolic function with an ejection fraction at 59% with no valvular pathology or wall motion abnormality. Advised on adequate hydration, med compliance, and avoiding caffeinated beverages or stimulants like alcohol. (2) Morbid obesity: Code(s): E66.01 - Morbid (severe) obesity due to excess calories Category: Medical Plan: Patient previously has been successful on Wegovy as patient had lost over 30 lb however due to some insurance trouble patient came off this. Patient is very interested in going back on weight loss program and therefore we will reach out to primary care for further assistance. Highly encouraged weight loss and regular exercise with healthy diet for overall cardiovascular health. Patient will follow up in 6 months. In the interim, patient will call the office with any concerns or change in symptoms. This note was generated using voice recognition software. While every effort has been made to ensure accuracy and proper manager company, there may be occasional errors that could affect the content or meaning of the described symptoms. Orders: Orders AMB EKG-In Office Today I48.0 - Paroxysmal atrial fibrillation Medications: Refilled mecobalamin (vitamin B12) place tablet under tongue and allow to dissolve for at least30 secs before sw allowing 1,000 mcg sublingual DAILY 90 tabs 0RF E53.8 - Deficiency of other specified B group vitamins Coding Level of Care Code Est Pt Level 4 (35928) Add On Problem Visit Only Diagnoses Atrial fibrillation I48.0 Atrial fibrillation type: paroxysmal Morbid obesity E66.01 CPT Codes EKG - CPT: 58900-Vipmlpoxdmvhzgdew, Complete ([id number]) Time Spent (min) 32 Comment Time spent in reviewing the chart, test results, assessment, counseling and documentation.
--- OUTSIDE RECORDS SUMMARY | 2025-08-09 20:43 | XMS_ITS | Data Portability ---
Author Organization [place] - [facility], Allergy Address [address] [place] [address] Assessment Encounter Date Assessment Date Assessment LastModified [...] Recorded Time Impacted cerumen in right ear 76253158646 99810 Active 2016 Impacted cerumen, right ear; Note: Date Diagnosed : 10/31/2016 4:26 PM (H61.21) [facility] 4 02:25:57 Acute tonsillit is 30746287 Active 2016 Acute tonsillit is, unspecifi ed; Note: Date Diagnosed : 10/31/2016 4:28 PM (J03.90) Not Available formerly [facility] 4 02:26:11 Otalgia of right ear 0417983186 Active 2016 Otalgia, right ear; Note: Date Diagnosed : 10/31/2016 4:26 PM (H92.01) Not Available formerly [facility] 4 02:25:51 Snoring 55130134 Active 2023 MINNIE CHRIS MD [address] [place] [address], [facility] [place], [address] , [place] - [facility] 4 15:20:59 Problem Notes None recorded. Procedures Surgical History Date Name Laterality Status Provider Name and Address Organization Details Recorded Time Appendectomy completed Mandi Wisdom [facility] - [facility] 04/17/2024 14:56:12 Imaging Results None recorded. Procedure Notes None recorded. Medical Equipment None Reported. Allergies Allergen ID Allergen Name Allergen Category Reaction Reaction Severity Criticality Documentation Date Start Date Code Code System Note Provider Name and Address Organization Details Recorded Time 77735 clindamyc in hydrochlo ride medicatio n other Not available Not available 01/07/2024 62446 RxNorm React ion: unkno wn, unspe cifie d;; Not Available formerly [facility] 4 00:55:38 Medications Name Sig Start Date [...] Updated DateTime 04/17/2024 172.72 cm 50.9 kg/m2 604711.44 g Mandi Castro [place] - [facility] 04/17/2024 15:03:16 Social History None recorded. Functional Status Question Answer Note LastModified by Organizat ion Details LastModified Time What is your level of alcohol consumption? Occasional [id number] Information not available 04/17/2024 Mental Status None [...] ICD10 Code Diagnosis IMO Codes Diagnosis Note 45806 MINNIE CHRIS MD [facility] [address] [address] 04/17/2024 14:13:00 04/17/2024 15:22:11 Snoring [id number] R06.83 Health Concerns Section Related Observation LastModified by Organization Detai ls LastModified Time None Recorded Concern Status LastModified by Organization Details LastModified Time None Recorded Advance Directives Directive None Recorded Payers Insurance Date Sequence Insurance Name Policy Number Policy Pollard Covered Member ID Pollard Member ID Guarantor Name 04/17/2024 1 [facility] (PPO) [id number] Steph Neal [id number] Steph Neal 04/17/2024 1 [facility] (HMO) [id number] Steph Neal [id number] Steph Neal 04/17/2024 1 [facility] (O) [id number] Steph Neal [id number] Steph Neal 04/17/2024 1 [facility] [id number] Steph Neal [id number] Steph Neal Notes Date Note Type Note Provider Name and Address Organization Details Recorded Time 04/17/2024 text/html ROS as noted in the HPI weight loss program /1/[address] [place] 46AHI 2.7 just started wegovy +snoringno hx of tonsil infections MINNIE CHRIS MD [address] [place] [address], [address], [place] - [facility] 04/17/2024 15:22:03 OBGyn Episode No OBEpisode recorded.
--- OUTSIDE RECORDS SUMMARY | 2025-08-09 20:43 | XMS_ITS | Data Portability ---
Author Organization [facility], Main Office Address [address] [place] [address] Care Team Providers Care Ice Crusher Name Role Phone MINNIE CHRIS Drum Plater [facility] Deputy Sheriff Generalist HODA RAHMAN Orthopedic Surgeon [phone] [facility] Urologist JESS DELA CRUZ Security Program Manager MOLLY LAM Primary Care Provider Assessment Encounter Date Assessment Date Assessment LastModified by Organization Details LastModified Time 01/08/2023 01/08/2023 This service was provided using telemedicine. Patient consented to video & audio visit Patient was located in the [facility]. Provider was located in the office. No [...] DO Not Attach Compendium, Do Not Delete/merge, [id number] 3 15:18:01 rapid flu (A+B) 2022 023 CARMELO In-Office Order, Internal Use Only DO Not Attach Compendium DO Not Attach Compendium, Do Not Delete/merge, [id number] 3 15:28:10 rsv (respi ratory syncyt ial virus) , rapidsoniya al 2022 023 CARMELO In-Office Order, Internal Use Only DO Not Attach Compendium DO Not Attach Compendium, Do Not Delete/merge, [id number] 3 15:44:39 urinal ysis, dipsti ck 2022 023 [email or web address] In-Office Order, Internal Use Only DO Not Attach Compendium DO Not Attach Compendium, Do Not Delete/merge, [id number] 3 14:39:10 Referral dermat ologis t referr al 2022 023 [facility], [address], [address], [place], [address], 4 10:36:34 Procedures None record ed. Surgeries None record ed. Imaging None record ed. Medication Orders Flexmen tin 875 mg-125 mg tablet 2022 023 [facility]24, [address] [place], [id number], 3 15:18:13 benzon atate 100 mg capsul e 2022 023 [facility] #21703, [address] [place], [id number], 3 15:18:16 albute rol sulfat e HFA 90 mcg/ac tuatio n aeroso l inhale r 2022 023 [facility] #51554, [address] [place], [id number], 15:18:13 ciprof loxaci n 250 mg tablet 2022 023 [facility], [address] [facility], [place], [place], [id number], 15:55:22 Patient TargetsNo targets recorded. Patient Instructions Encounter Date Encounter Id Patient Instructions Last Modified By Organization Details Last Modified Time 01/08/2023 [id number] Follow up if no improvement or if symptoms worsen. [email or web address] Not available 01/08/2023 16:19:02 04/17/2023 [id number] tennis elbow: care instructions pmadden Not available 04/17/2023 16:48:46 tennis elbow: exercises pmadden Not available 04/17/2023 16:48:47 Follow up if no improvement or if symptoms worsen. pmadden Not available 04/17/2023 16:53:08 04/26/2023 [id number] 05/07/23- message left at home number to return my call, offer a hospital follow up as well as Pt is also due for a physical. 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 Referring Physician: Cabrera Mondragon, Internal Medicine, Encounter Date: 04/17/2023 Results Created Date Observation Date Name Description Value Unit Range Abnormal Flag Note LastModifiedBy Organization Detail LastModifiedTime 04/19/2004/19/2023 urina lysis , dipst ick Leukocytes Negati ve Not Available In-Office Order Internal Use Only DO Not Attach Compendium DO Not Attach Compendium, Do Not Delete/merge, [id number] 04/19/2023 13:29:11 04/19/2004/19/2023 urina lysis , dipst ick Nitritie negati ve Not Available In-Office Order Internal Use Only DO Not Attach Compendium DO Not Attach Compendium, Do Not Delete/merge, [facility] 04/19/2023 13:29:11 04/19/20 23 04/19/2023 urina lysis , dipst ick Urobilinogen .2 Not Available In-Of fice Order Internal Use Only DO Not Attach Compendium DO Not Attach Compendium, Do Not Delete/merge, [facility] 04/19/2023 13:29:11 04/19/20 23 04/19/2023 urina lysis , dipst ick Protein Negati ve Not Available In-Office Order Internal Use Only DO Not Attach Compendium DO Not Attach Compendium, Do Not Delete/merge, [facility] 04/19/2023 13:29:11 04/19/20 23 04/19/2023 urina lysis , dipst ick pH 6.0 Not Available In-Office Order Internal Use Only DO Not Attach Compendium DO Not Attach Compendium, Do Not Delete/merge, [facility] 04/19/2023 13:29:11 04/19/20 23 04/19/2023 urina lysis , dipst ick Blood Hemoly zed: Trace Not Available In-Office Order Internal Use Only DO Not Attach Compendium DO Not Attach Compendium, Do Not Delete/merge, [facility] 04/19/2023 13:29:11 04/19/20 23 04/19/2023 urina lysis , dipst ick Specific Snyder 1.005 Not Available In-Off ice Order Internal Use Only DO Not Attach Compendium DO Not Attach Compendium, Do Not Delete/merge, [facility] 04/19/2023 13:29:11 04/19/20 23 04/19/2023 urina lysis , dipst ick Ketone Trace Not Available In-Office Order Internal Use Only DO Not Attach Compendium DO Not Attach Compendium, Do Not Delete/merge, [facility] 04/19/2023 13:29:11 04/19/20 23 04/19/2023 urina lysis [...] (PROC ) No observ ation record ed. [email or web address] [facility] (Medical Records) [address] [place], [address], 05/21/2023 11:11:15 05/22/20 23 05/21/2023 US, abdom en, compl ete No observ ation record ed. [email or web address] [facility] (Medical Records) [address] [place], [address], 05/22/2023 12:50:47 Result Notes None recorded. Problems Name Problem SNOMED Code Status Onset Date Resolution Date Notes Provider Name and Address Organization Details Recorded Time Patient status finding [id number] Completed 06/29/2016 [facility] 6 15:18:43 Backache 811257803 Completed 06/29/2016 LUIS FERNANDO Adams, [facility] 6 15:18:46 Urinary incontin ence 627890428 Active Belabryan CHOE-Man [address] [address], [place], 9, [facility] 6 12:28:32 Elevated blood-pr essure reading without diagnosi s of hyperten yue 191259551 Active Belajihan Mondragon PA-C [address] [address], [place], [address], [facility] 6 12:28:32 Pure hypercho lesterol emia 633584782 Completed 01/25/2017 [facility] 7 14:59:23 Recurren t major depressi ve episodes 990651156 Active Bela CHOE-C [address] [address], [place], [address], [facility] 6 12:28:31 Neck pain 91873610 Completed 01/25/2017 Omayra deluna [facility] 7 14:59:05 Obesity 672022439 Completed 01/08/2020 [employer] [address], [place], [address], [facility] 0 17:12:44 Osteoart hritis of knee 085931136 Active Bela Branch2-C [address], [place], [address], [place] [facility] 6 12:28:32 Morbid obesity 141070529 Active Bela Branch2-Yun Yun [address], [place], [address], [facility] 6 12:28:31 Knee pain Completed 02/02/2019 Omayra deluna [facility] 9 15:55:45 Dysuria 24643337 Completed 06/29/2016 LUIS FERNANDO Adams, [facility] 6 15:19:10 Acute pharyngi tis 544792953 Completed 06/29/2016 LUIS FERNANDO Adams [facility] 6 15:19:04 Acute vaginiti s 98778916 Completed 06/29/2016 LUIS FERNANDO Adams, [facility] 6 15:18:52 Cough 62584027 Completed 06/29/2016 LUIS FERNANDO Adams [facility] 6 15:19:12 Palpitat ions 41052901 Completed 01/25/2017 Omayra deluna [facility] 7 14:59:02 Spasm of back muscles 390202552 Completed 01/25/2017 Omayra Glading-D ilorenzo null, [facility] 7 14:59:27 Atrial fibrilla tion 54986194 Completed 02/02/2019 Omayra deluna, [facility] 9 15:56:00 Spinal stenosis in cervical region 85302652 Completed 11/30/2014 mri does not show this Bela Giancarlo CHOE-C [address], [place], [address], [facility] 6 12:28:32 Snoring 00474846 Completed 01/25/2017 Omayra deluna, [facility] 7 14:58:59 Thyroid nodule 429098460 Active Bela Mondragon PA-C [address], [place], [address], [facility] 6 12:28:31 Insomnia 888349657 Active Belajihan Mondragon PA-C [address], [place], [address], [facility] 6 12:28:31 Degenera tion of thoracic interver tebral disc 55573140 Active T1/T2 Belabryan Mondragon PA-C [address], [place], [address], [facility] 6 12:28:32 Degenera tion of cervical interver tebral disc 28556088 Completed 01/25/2017 Omayra deluna, [facility] 7 14:59:09 Edema 264831161 Completed 06/29/2016 LUIS FERNANDO Adams, [facility] 6 15:18:56 Rapid atrial fibrilla tion 997741905 Completed 01/27/2018 Omayra deluna, [facility] 8 11:21:10 Paroxysm al atrial fibrilla tion 425135050 Active Omayra Curiel-D yonathanorenzo null, [facility] 6 15:17:25 Panic disorder 098243409 Completed 02/02/2019 Omayra Curiel-D yonathanorenzo null, [facility] 9 15:55:48 Patent foramen ovale 913402162 Active Omayra Curiel-D yonathanorenzo null, [facility] 6 15:17:25 Pain of joint 92264599 Completed 01/25/2017 Omayra Mannvaishali-Pamela marcelinonzo null, [facility] 7 14:59:13 Anxiety 95708315 Completed 01/08/2020 Bela CHOE-C [address], [place], [address], [facility] 0 17:12:31 Urinary tract infectio us disease 28871037 Completed 200803/09/2014 RECORDED 12/07/19 09 8:54AM BY BRENDA STEINER MA, ANNOTATI ON/ADDEN DUM Belajihan MOCKC [address], [place], [address], [facility] 6 12:28:31 Urinary tract infectio us disease 67588030 Completed 200804/05/2014 RECORDED 12/07/19 09 8:54AM BY BRENDA STEINER MA, BARBARA ON/ADDEN DUM Belajihan MOCKC [address], [place], [address], [facility] 6 12:28:32 Lumbar sprain 929493291 Completed 200903/09/2014 RECORDED 11/12/19 10 9:28AM BY CHINTAN SWEENEYATI ON/ADDEN DUM Bela Giancarlo CHOE-C [address], [place], [address], [facility] 6 12:28:32 Malaise and fatigue 254759882 Completed 200903/09/2014 IMPRESSI ON: LONG TALK RE WEIGHT, ADDICTIV E EATING BEHAVIOR S, WILL OCNTINUE COUNSELI NG AND TRY TO INCREASE EXERCISE . SEES DR MORALES TOO. DOES NOT FEEL SHE NEEDS MEDS FOR DEPRESSI ON, FEELS WELL MOSTLY.; RECORDED 11/12/19 10 9:28AM BY BARBARA SWEENEY ON/ADDEN DUM Bela Mondragon PA-C [address], [place], [address], [facility] 6 12:28:32 Synoviti s/tenosy novitis - hand 859389693 Completed 200903/09/2014 IMPRESSI ON: POSSIBLE CARPAL TUNNEL SYNDROME ; RECORDED 11/12/19 10 9:28AM BY BARBARA SWEENEY ON/ADDEN DUM Bela Mondragon PA-C [address], [place], [address], [facility] 6 12:28:32 Joint pain in ankle and foot Completed 200903/09/2014 IMPRESSI ON: FXT FIBULA AND OTHER IN 01/01, STILL WITH AIN EXPECTED , TX WITH ULTRAM SINCE NO CONTRAIN DICATION S AND USE MOTRIN 800MG TID WITH FOOD; RECORDED 11/12/19 10 9:27AM BY BARBARA SWEENEY ON/ADDEN DUM Bela Mondragon PA-C [address], [place], [address], [facility] 6 12:28:32 Pain in thoracic spine 949839591 Completed 200903/09/2014 IMPRESSI ON: MUSCULAR , STRETCH; RECORDED 11/12/19 10 9:27AM BY BARBARA SWEENEY ON/ADDEN DUM Bela Giancarlo PA-C [address], [place], [address], [facility] 6 12:28:32 Lumbar sprain 190411801 Completed 200904/05/2014 RECORDED 11/12/19 10 9:28AM BY BARBARA SWEENEY ON/ADDEN DUM Bela [employer] [address], [place], [address], [facility] 6 12:28:32 Malaise and fatigue 525977597 Completed 200904/05/2014 IMPRESSI ON: LONG TALK RE WEIGHT, ADDICTIV E EATING BEHAVIOR S, WILL OCNTINUE COUNSELI NG AND TRY TO INCREASE EXERCISE . SEES DR MORALES TOO. DOES NOT FEEL SHE NEEDS MEDS FOR DEPRESSI ON, FEELS WELL MOSTLY.; RECORDED 11/12/19 10 9:28AM BY BARBARA SWEENEY ON/ADDEN DUM Bela [employer]ragonFlowJobC [address], [place], [address], [facility] 6 12:28:32 Synoviti s/tenosy novitis - hand 713789104 Completed 200904/05/2014 IMPRESSI ON: POSSIBLE CARPAL TUNNEL SYNDROME ; RECORDED 11/12/19 10 9:28AM BY BARBARA SWEENEY ON/ADDEN DUM Bela [employer] [address], [place], [address], [facility] 6 12:28:32 Joint pain in ankle and foot Completed 200904/05/2014 IMPRESSI ON: FXT FIBULA AND OTHER IN 01/01, STILL WITH AIN EXPECTED , TX WITH ULTRAM SINCE NO CONTRAIN DICATION S AND USE MOTRIN 800MG TID WITH FOOD; RECORDED 11/12/19 10 9:27AM BY BARBARA SWEENEY ON/ADDEN DUM Bela [employer] [address], [place], [address], [facility] 6 12:28:32 Pain in thoracic spine 368825483 Completed 200904/05/2014 IMPRESSI ON: MUSCULAR , STRETCH; RECORDED 11/12/19 10 9:27AM BY BARBARA SWEENEY ON/ADDEN DUM Bela Giancarlo CHOE-C [address], [place], [address], [facility] 6 12:28:32 Inflamma tory disorder of extremit y Completed 201103/09/2014 IMPRESSI ON: REVIEWED XRAY WITH ALPHONSE JOHNSON EXAM CONSISTE NT WITH ACHILLES TENDONIT IS, AND SWELLING NO MASS FELT; RECORDED 03/25/20 12 9:59AM BY DUNIA SILVER MA, BARBARA ON/ADDEN DUM Bela Giancarlo CHOE-C [address], [place], [address], [facility] 6 12:28:32 Acute bronchit is 91211134 Completed 201103/09/2014 RECORDED 03/25/20 12 9:59AM BY DUNIA SILVER MA, BARBARA ON/ADDEN DUM Bela Giancarlo MOCKC [address], [place], [address], [facility] 6 12:28:31 Cough 60887562 Completed 201103/09/2014 RECORDED 03/25/20 12 9:58AM BY DUNIA SILVER MA, ANNOTATI ON/ADDEN DUM Brenda Garry green [place] [facility], [facility] 6 15:19:12 Degenera tion of interver tebral disc Completed 201103/09/2014 RECORDED 03/25/20 12 9:59AM BY DUNIA SILVER MA, ANNOTLUCIA ON/ADDEN DUM Bela Giancarlo MOCKC [address], [place], [address], [facility] 6 12:28:32 [place] ak 096396762 Completed 201103/09/2014 RECORDED 03/25/20 12 9:59AM BY DUNIA SILVER MA, BARBARA ON/ADDEN DUM Bela Mondragon PA-C [address], [place], [address], [facility] 6 12:28:31 Otalgia 40743555 Completed 201103/09/2014 RECORDED 03/25/20 12 9:59AM BY DUNIA SILVER MA, ANNOTATI ON/ADDEN DUM Bela Mondragon PA-C [address], [place], [address], [facility] 6 12:28:31 Pyelonep hritis 34713454 Completed 201103/09/2014 IMPRESSI ON: SEE ABOVE, PT TO FINISH BACTRIM TO ER IF CANNOT TOLERATE PO WITH VOMITING OR FEELS DIZZY.., PT WILL CALL AND CHECK WITH ELECTRONICS SCALE TESTER TOMORROW ABOUT MAKING SURE SENSITIV ITIES MATCH BACTRIM, FLUIDS REST; RECORDED 03/25/20 12 9:59AM BY DUNIA SILVER MA, BARBARA ON/ADDEN DUM Bela Mondragon PA-C [address], [place], [address], [facility] 6 12:28:31 Pain in limb 73342905 Completed 201103/09/2014 IMPRESSI ON: PT TO SET UP APPT; RECORDED 03/25/20 12 9:59AM BY DUNIA SILVER MA, ANNOTATI ON/ADDEN DUM Bela Giancarlo CHOE-C [address], [place], [address], [facility] 6 12:28:32 Shoulder joint pain 093333440 Completed 201103/09/2014 IMPRESSI ON: SOUNDS LIKE BURSISIT PT TO SEE ALANNA Chavez [facility]; RECORDED 03/25/20 12 9:59AM BY DUNIA SILVER MA, ANNOTLUCIA ON/ADDEN DUM Bela Giancarlo PA-C [address], [place], [address], [facility] 6 12:28:32 Chronic sinusiti s 09602384 Completed 201103/09/2014 RECORDED 03/25/20 12 9:59AM BY DUNIA SILVER MA, ANNOTATI ON/ADDEN DUM Belabryan MOCKC [address], [place], [address], [facility] 6 12:28:31 Wheezing 89093346 Completed 201103/09/2014 RECORDED 03/25/20 12 9:59AM BY DUNIA SILVER MA, ANNOTATI ON/ADDEN DUM Belajihan MOCKC [address], [place], [address], [facility] 6 12:28:32 Inflamma tory disorder of extremit y Completed 201104/05/2014 IMPRESSI ON: REVIEWED XRAY WITH ALPHONSE JOHNSON EXAM CONSISTE NT WITH ACHILLES TENDONIT IS, AND SWELLING NO MASS FELT; RECORDED 03/25/20 12 9:59AM BY DUNIA SILVER MA, ANNOTLUCIA ON/ADDEN DUM Belabryan MOCKC [address], [place], [address], [facility] 6 12:28:32 Acute bronchit is 20065183 Completed 201104/05/2014 RECORDED 03/25/20 12 9:59AM BY DUNIA SILVER MA, ANNOTLUCIA ON/ADDEN DUM Belajihan Mondragon PA-C [address], [place], [address], [facility] 6 12:28:31 Cough 81560372 Completed 201104/05/2014 RECORDED 03/25/20 12 9:58AM BY DUNIA SILVER MA, ANNOTATI ON/ADDEN DUM Brenda green [place] null, [facility] 6 15:19:12 Degenera tion of interver tebral disc Completed 201104/05/2014 RECORDED 03/25/20 12 9:59AM BY DUNIA SILVER MA, ANNOTLUCIA ON/ADDEN DUM Bela Giancarlo PA-C [address], [place], [address], [facility] 6 12:28:32 Lymphedeunice nevarez 223009182 Completed 201104/05/2014 RECORDED 03/25/20 12 9:59AM BY DUNIA SILVER MA, ANNOTATI ON/ADDEN DUM Bela Giancarlo PA-C [address], [place], [address], [facility] 6 12:28:31 Otalgia 17303176 Completed 201104/05/2014 RECORDED 03/25/20 12 9:59AM BY DUNIA SILVER MA, ANNOTLUCIA ON/ADDEN DUM Bela Giancarlo PA-C [address], [place], [address], [facility] 6 12:28:31 Knee pain Completed 201104/05/2014 RECORDED 03/25/20 12 9:59AM BY DUNIA SILVER MA, ANNOTATI ON/ADDEN DUM Omayra Agnes garrett [facility] 9 15:55:45 Pyelonep hritis 40195678 Completed 201104/05/2014 IMPRESSI ON: SEE ABOVE, PT TO FINISH BACTRIM TO ER IF CANNOT TOLERATE PO WITH VOMITING OR FEELS DIZZY.., PT WILL CALL AND CHECK WITH ELECTRONICS SCALE TESTER TOMORROW ABOUT MAKING SURE SENSITIV ITIES MATCH BACTRIM, FLUIDS REST; RECORDED 03/25/20 12 9:59AM BY DUNIA SILVER MA, ANNOTATI ON/ADDEN DUM Ebla Giancarlo PA-C [address], [place], [address], [facility] 6 12:28:31 Pain in limb 83792027 Completed 201104/05/2014 IMPRESSI ON: PT TO SET UP APPT; RECORDED 03/25/20 12 9:59AM BY DUNIA SILVER MA, BARBARA ON/ADDEN DUM Bela Mondragon PA-C [address], [place], [address], [facility] 6 12:28:32 Shoulder joint pain 895460368 Completed 201104/05/2014 IMPRESSI ON: SOUNDS LIKE BURSISIT PT TO SEE ALANNA [facility]avez [facility]; RECORDED 03/25/20 12 9:59AM BY DUNIA SILVER MA, BARBARA ON/ADDEN DUM Bela Mondragon PA-C [address], [place], [address], [facility] 6 12:28:32 Chronic sinusiti s 96711478 Completed 201104/05/2014 RECORDED 03/25/20 12 9:59AM BY DUNIA SILVER MA, BARBARA ON/ADDEN DUM Bela Mondragon PA-C [address], [place], [address], [facility] 6 12:28:31 Wheezing 31337250 Completed 201104/05/2014 RECORDED 03/25/20 12 9:59AM BY DUNIA SILVER MA, BARBARA ON/ADDEN DUM Bela Mondragon PA-C [address], [place], [address], [facility] 6 12:28:32 Edema 819627205 Completed 201103/09/2014 IMPRESSI ON: BILATERA L, LUNGS CLEAR, C/W DEPENDEN T EDEMA, HAS TAKEN HCTZ IN THE PAST WITH IMPROVEM ENT, ALSO REVIEWED DIET/LEG ELEVATIO N/WEIGHT LOSS/COM PRESSION STOCKING S; RECORDED 06/12/20 12 9:04AM BY BARBARA ARTIS ON/ADDEN DUM Brenda Barbara-M attos, [place] [facility] 6 15:18:56 Lipoma of skin and subcutan eous tissue (excludi ng face) 546574744 Completed 201103/09/2014 IMPRESSI ON: BACK; RECORDED 06/12/20 12 9:04AM BY BARBARA ARTIS ON/ADDEN DUM Bela CHOE-C [address], [place], [address], [facility] 6 12:28:31 Skin sensatio n disturba wie 16887456 Completed 201103/09/2014 IMPRESSI ON: AT SITE OF PREVIOUS CONTUSIO N FROM ABOUT A MONTH AGO, WITHOUT PAIN OR WITHOUT SIGNS OF CELLULIT IS, FOR NOW WILL MONITOR; RECORDED 06/12/20 12 9:03AM BY BARBARA ARTIS ON/ADDEN DUM Bela CHOE-C [address], [place], [address], [facility] 6 12:28:32 Plantar fascial fibromat osis 72089616 Completed 201103/09/2014 RECORDED 06/12/20 12 9:04AM BY BARBARA ARTIS ON/ADDEN DUM Bela CHOE-C [address], [place], [address], [facility] 6 12:28:32 Influenz a vaccine needed 48180464994 06 Completed 201103/09/2014 RECORDED 06/12/20 12 9:13AM BY GRISELDA SILVEIRA, OFFICE VISIT Bela CHOE-Man [address], [place], [address], [facility] 6 12:28:32 Edema 442803304 Completed 201104/05/2014 IMPRESSI ON: BILATERA L, LUNGS CLEAR, C/W DEPENDEN T EDEMA, HAS TAKEN HCTZ IN THE PAST WITH IMPROVEM ENT, ALSO REVIEWED DIET/LEG ELEVATIO N/WEIGHT LOSS/COM PRESSION STOCKING S; RECORDED 06/12/20 12 9:04AM BY BARBARA ARTIS ON/ADDEN DUM Brenda green [place] [facility] 6 15:18:56 Lipoma of skin and subcutan eous tissue (excludi ng face) 352797139 Completed 201104/05/2014 IMPRESSI ON: BACK; RECORDED 06/12/20 12 9:04AM BY BARBARA ARTIS ON/ADDEN DUM Bela CHOE-C [address], [place], [address], [facility] 6 12:28:31 Skin sensatio n disturba wie 74999443 Completed 201104/05/2014 IMPRESSI ON: AT SITE OF PREVIOUS CONTUSIO N FROM ABOUT A MONTH AGO, WITHOUT PAIN OR WITHOUT SIGNS OF CELLULIT IS, FOR NOW WILL MONITOR; RECORDED 06/12/20 12 9:03AM BY BARBARA ARTIS ON/ADDEN DUM Bela Velasquezden ДМИТРИЙ-C [address], [place], [address], [facility] 6 12:28:32 Plantar fascial fibromat osis 96743752 Completed 201104/05/2014 RECORDED 06/12/20 12 9:04AM BY BARBARA ARTIS ON/ADDEN DUM Bela CHOE-C [address], [place], [address], [facility] 6 12:28:32 Influenz a vaccine needed [id number] 06 Completed 201104/05/2014 RECORDED 06/12/20 12 9:13AM BY GRISELDA SILVEIRA, OFFICE VISIT Bela CHOE-C [address], [place], [address], [facility] 6 12:28:32 Administ ration of measles and mumps and rubella vaccine Completed 201103/09/2014 RESOLVED DATE: 06/13/20 12; IMPRESSI ON: NEG MUMPS TITER, NEEDS REVACCIN ATION; RECORDED 06/13/20 12 12:55PM BY OMAYRA Saleem MD, OFFICE VISIT [facility] [address], [place], [address], [facility] 6 12:28:32 Administ ration of measles and mumps and rubella vaccine Completed 201104/05/2014 RESOLVED DATE: 06/13/20 12; IMPRESSI ON: NEG MUMPS TITER, NEEDS REVACCIN ATION; RECORDED 06/13/20 12 12:55PM BY OMAYRA Saleem MD, OFFICE VISIT [facility] [address], [place], [address], [facility] 6 12:28:32 Adult health examinat ion Completed 201103/09/2014 IMPRESSI ON: PAP IS UTD, PT TO START EXERCISI NG; RECORDED 07/08/20 12 1:24PM BY BARBARA GUIDRY ON/ADDEN DUM [facility] [address], [place], [address], [facility] 6 12:28:32 Nausea [id number] Completed 201103/09/2014 IMPRESSI ON: RULE OUT PREGNANC Y; RECORDED 07/08/20 12 1:24PM BY BARBARA GUIDRY ON/ADDEN DUM [facility] [address] [facility] [address], [place], [address], [facility] 6 12:28:32 Inflamma tion of sacroili ac joint [id number] Completed 201103/09/2014 IMPRESSI ON: RIGHT SIDED PAIN, CHANGE TO IBUPROFE N WITH FOOD AND TYLENOL WITH CODEINE AT NIGHT. PE 05/[address] UP PT HAS PAPERWOR K; RECORDED 07/08/20 12 1:24PM BY BARBARA GUIDRY ON/ADDEN DUM Bela Mondragon MO-C [address], [place], [address], [facility] 6 12:28:32 Administ ration of diphther ia and tetanus vaccine Completed 201103/09/2014 RECORDED 07/08/20 12 1:24PM BY BARBARA GUIDRY ON/ADDEN DUM Bela Mondragon MO-C [address], [place], [address], [facility] 6 12:28:32 Nausea [id number] Completed 201104/05/2014 IMPRESSI ON: RULE OUT PREGNANC Y; RECORDED 07/08/20 12 1:24PM BY BARBARA GUIDRY ON/ADDEN DUM Bela Mondragon MO-C [address], [place], [address], [facility] 6 12:28:32 Inflamma tion of sacroili ac joint 79627105 Completed 201104/05/2014 IMPRESSI ON: RIGHT SIDED PAIN, CHANGE TO IBUPROFE N WITH FOOD AND TYLENOL WITH CODEINE AT NIGHT. PE 05/[address] UP PT HAS PAPERSalimaOR K; RECORDED 07/08/20 12 1:24PM BY BARBARA GUIDRY ON/ADDEN DUM Bela Mondragon MO-C [address], [place], [address], [facility] 6 12:28:32 Administ ration of diphther ia and tetanus vaccine Completed 201104/05/2014 RECORDED 07/08/20 12 1:24PM BY BARBARA GUIDRY ON/ADDEN DUM Bela Mondragon PA-C [address], [place], [address], [facility] 6 12:28:32 Dizzines s and giddines s [id number] Completed 201203/09/2014 IMPRESSI ON: NORMAL EXAM; RECORDED 09/01/19 13 1:16PM BY CHERIE HERRERA MA, ANNOTATI ON/ADDEN DUM Bela Mondragon PA-C [address], [place], [address], [facility] 6 12:28:32 Dizzines s and giddines s [id number] Completed 201204/05/2014 IMPRESSI ON: NORMAL EXAM; RECORDED 09/01/19 13 1:16PM BY CHERIE HERRERA MA, CHINTANATI ON/ADDEN DUM Bela Branch2-C [address], [place], [address], [facility] 6 12:28:32 Low back pain 787269296 Completed 201203/09/2014 RECORDED 09/05/19 13 10:23AM BY CHERIE HERRERA MA, CHINTANATI ON/ADDEN DUM Bela Branch2-C [address], [place], [address], [facility] 6 12:28:32 Low back pain 389219368 Completed 201204/05/2014 IMPRESSI ON: X 1 DAY, OCCURED WHILE BENDING OVER; RECORDED 09/05/19 13 10:23AM BY CHERIE HERRERA MA, CHINTANATI ON/ADDEN DUM Bela [employer] [address], [place], [address], [facility] 6 12:28:32 Acute pharyngi tis [id number] Completed 201203/09/2014 IMPRESSI ON: + RAPID STREP, POSSIBLE RIGHT EARLY PERITONS ILLAR ABSCESS, TX WITH ABX/FLUI DS/NSAID S, IF WORSENIN G PAIN OR DIFFICUL TY SWALLOWI NG CALL OFFICE FOR ENT APPT.; RECORDED 12/16/19 13 10:04AM BY BARBARA ARTIS ON/ADDEN DUM Brenda green MA null, [facility] 6 15:19:04 Acute pharyngi tis 730200601 Completed 201204/05/2014 IMPRESSI ON: + RAPID STREP, POSSIBLE RIGHT EARLY PERITONS ILLAR ABSCESS, TX WITH ABX/FLUI DS/NSAID S, IF WORSENIN G PAIN OR DIFFICUL TY SWALLOWI NG CALL OFFICE FOR ENT APPT.; RECORDED 12/16/19 13 10:04AM BY BARBARA ARTIS ON/ADDEN DUM Brenda green MA null, [facility] 6 15:19:04 Knee pain Completed 201203/09/2014 IMPRESSI ON: PT IN A MOMIN TO LEAVE SO DID NOT EXAMINE KNEES. WILL START WITH X-RAY SINCE MAY HAVE DJD. F/U WITH PCP FOR FURTHER ASSESSME NT. 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 GETS INTERTRI GO FUNGAL INFECTIO NS DUE TO THIS; RECORDED 05/09/20 13 10:00AM BY BARBARA GUIDRY ON/ADDEN DUM Bela MOCKC [address] [facility] [address], [place], [address], [facility] 6 12:28:32 Immuniza tion refused Completed 201204/05/2014 RECORDED 05/09/20 13 10:00AM BY BARBARA GUIDRY ON/ADDEN DUM Bela Mondragon PA-C [address], [place], [address], [facility] 6 12:28:32 Hypertro phic conditio n of skin 77225823 Completed 201204/05/2014 IMPRESSI ON: AFTER WEIGHT LOSS. GETS INTERTRI GO FUNGAL INFECTIO NS DUE TO THIS; RECORDED 05/09/20 13 10:00AM BY BARBARA GUIDRY ON/ADDEN DUM Bela Branch2-C [address], [place], [address], [facility] 6 12:28:32 Tobacco user [id number] Completed 201305/29/2014 RECORDED 01/17/20 14 10:42AM BY OMAYRA Saleem MD, OFFICE VISIT Bela Branch2-C [address], [place], [address], [facility] 6 12:28:31 Adult health examinat ion Completed 201304/05/2014 IMPRESSI ON: PAP IS OVERDUE, PT WILL ARRANGE THIS, PT HAS AN IUD IN PLACE. PT WILL WORK ON DIET AND EXERCISE .; RECORDED 01/17/20 14 10:22AM BY BARBARA ARTIS ON/ADDEN DUM Bela Branch2-C [address], [place], [address], [facility] 6 12:28:32 Asthma [id number] Completed 201701/08/2020 Bela Mondragon PA-C [address], [place], [address], [facility] 0 17:12:58 Ex-smoke r 3444004 Active 2017 Brenda green MA null, [facility] 8 15:42:54 Small bowel obstruct ion 129493815 Active 2018 Brenda green [place] null, [facility] 9 09:46:54 Generali zed anxiety disorder 55706141 Active 2019 Bela Mondragon PA-C [address], [place], [address], [facility] 0 17:12:32 Mild intermit tent asthma 747715469 Active 2019 Bela Mondragon PA-C [address], [place], [address], [facility] 0 17:13:08 [facility] 505148489 Active 2019 Bela Mondragon PA-C [address], [place], [address], [facility] 0 17:13:31 Obstruct jefry sleep apnea syndrome 27519208 Active 2022 Cabrera Mondragon PA-C [address], [place], [address], [facility] 3 17:09:42 Pain of left hip joint 37251003386 9100 Active 2022 Cabrera Mondragon PA-C [address], [place], [address], [facility] 3 17:10:00 Left lateral elbow tendinop athy 24843540093 9100 Active 2022 Cabrera Mondragon PA-C [address], [place], [address], [facility] 3 13:33:40 Problem Notes None recorded. Procedures Surgical History Date Name Laterality Status Provider Name and Address Organization Details Recorded Time 05/21/20 23 Endoscopic us exam esoph completed Leslie Alba [facility] 05/21/2023 11:10:55 04/20/20 23 laparoscopic appendectomy completed Leslie Alba [facility] 04/22/2023 10:12:44 04/20/20 23 Appendectomy completed Avelina Encinas RN [facility] 04/30/2023 10:29:16 04/19/20 23 Appendectomy completed Avelina Encinas RN [facility] 04/25/2023 09:55:00 11/24/19 22 cardioversion completed Avelina Encinas RN [facility] 11/27/2021 13:27:24 01/24/20 17 extraction of wisdom tooth completed Brenda zurita MA [facility] 01/12/2019 09:34:35 Mammogram screening completed Brenda zurita MA [facility] 06/29/2016 15:20:32 Colonoscopy completed Brenda zurita MA [facility] 06/29/2016 15:20:36 Imaging Results None recorded. [...] DateTime 01/08/2023 171.45 cm Mary Becerra MA [facility] [place] 01/08/2023 15:48:36 Date Recorded Body height Body mass index (BMI) Body weight Heart rate Oxygen saturation Body temperature Systolic And Diastolic Provider Name and Address Organization Details Last Updated DateTime 3 171.45 cm 50.2 kg/m2 433720. 52 g 60 /min 97 % 98.3 [degF] 138/87 mm[Hg] Rupali Pedro [facility] [place] 3 15:56:22 Date Recorded Body height Body mass index (BMI) Body weight Heart rate Oxygen saturation Body temperature Systolic And Diastolic Provider Name and Address Organization Details Last Updated DateTime 3 171.45 cm 49.2 kg/m2 728670. 97 g 94 /min 96 % 97.8 [degF] 113/80 mm[Hg] [facility] 3 13:21:43 Date Recorded Body height Body mass index (BMI) Body weight Heart rate Oxygen saturation Body temperature Systolic And Diastolic Provider Name and Address Organization Details Last Updated DateTime 3 171.45 cm 48.1 kg/m2 492341. 82 g 68 /min 96 % 98.3 [degF] 160/98 mm[Hg] Isela Metz MA [facility] 3 14:57:00 Social History Question Answer Notes LastModified by Organizat ion Details LastModified Time Tobacco Smoking Status Former Smoker Cherie Garridoharlan deluna [facility] 05/18/2014 10:29:49 Do You Have An Advance Directive? No [email or web address] Information not available 06/20/2022 Is Blood Transfusion Acceptable In An Emergency? Yes [email or web address] Information not available 01/20/2016 What Is Your Level Of Caffeine Consumption? Occasional Information not available 12/29/2014 How Much Tobacco Do You Chew? None Information not available 06/29/2016 In The 14 Days Before Symptom Onset, Have You Had Close Contact With A Laboratory-confi rmed COVID-19 While That Case Was Ill? No [email or web address] Information not available 06/20/2022 In The 14 Days Before Symptom Onset, Have You Had Close Contact With A Person Who Is Under Investigation For COVID-19 While That Person Was Ill? No [email or web address] Information not available 06/20/2022 Have You Been To An Area Known To Be High Risk For COVID-19? No [email or web address] Information not available 06/20/2022 What Type Of Diet Are You Following? REGULAR [email or web address] Information not available 12/29/2014 Which Illicit Or Recreational Drugs Have You Used? None Information not available 06/29/2016 Live Alone Or With Others? With Others (Juan Carlos) And 2 Daughters [email or web address] Information not available 06/20/2022 Do You Take Precautions To Prevent Distracted Driving? Yes Information not available 01/20/2016 How Often Do You Need To Have Someone Help You When You Read Instructions, Pamphlets, Or Other Written Material From Your Doctor Or Pharmacy? Sometimes [email or web address] Information not available 01/20/2016 Have You Served [...] Of Your Most Recent Tobacco Screening? 06/20/2022 [email or web address] Information not available 06/20/2022 How Many Children Do You Have? 2 Adriana And Renee Information not available 03/27/2018 What Is Your Current Pack Years? [email or web address] Information not available 06/20/2022 Do You Use Protection During Sex? No Information not available 06/29/2016 Seat Belts Used Routinely Yes [email or web address] Information not available 06/20/2022 Are You Sexually Active? Yes Information not available 06/29/2016 Smoke Alarm In Home Yes [email or web address] Information not available 06/20/2022 Are You Passively Exposed To Smoke? No Information not available 06/29/2016 General Stress Level Medium [email or web address] Information not available 06/20/2022 Do You Use Sunscreen Routinely? Yes Information not available 12/29/2014 How Many Years Have You Smoked Tobacco? 10 [email or web address] Information not available 12/29/2014 Sex: Unknown Functional Status Question Answer Note LastModified by Organizat ion Details LastModified Time Do you or have you ever used any other forms of tobacco or nicotine? No [email or web address] Information not available 06/20/2022 What is your level of alcohol consumption? Occasional [email or web address] Information not available 12/29/2014 Are you currently employed? Yes [email or web address] Information not available 12/29/2014 Are you able to walk independently without assistance or assistive devices? [email or web address] Information not available 06/20/2022 Are you able to care for yourself independently? 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 Occasional [email or web address] Information not available 02/02/2019 Mental Status None recorded. Family History Relationship Description Onset Age of this Age Resolved Age Notes LastModified by Organization Details LastModified Time Father Harmful pattern of use of alcohol [email or web address] Not available 2019 15:29:15 Notes:Pt is adopted no FH kn own Medical History Condition Response Depression Y Anxiety Disorder Y Obesity Y Vision or Eye Problems Y Arthritis Y Heart Problems Y Eating Disorder Y Bladder Problems Y Asthma Y Gynecological History Statement/Question Response HPV Vaccine Date of Last Pap Smear Date of Last Colonoscopy Most Recent Mammogram Most Recent Bone Density Obstetrics History GPAL:G 0 P 0 0 0 0 Immunizations Vaccine Type Date Status Note Provider Nam e and Address Organization Details Recorded Time COVID-19, mRNA, LNP-S, PF, 30 mcg/0.3 mL dose 02/28/2021 completed LUIS FERNANDO Artis [facility] 12/13/2021 11:25:33 COVID-19, mRNA, LNP-S, PF, 30 mcg/0.3 mL dose 03/21/2021 completed [place] Artis [facility] 12/13/2021 11:25:33 MMR 10/21/2002 completed Not Available [facility] 03/09/2014 14:00:38 Tdap 06/12/2012 completed Not Available [facility] 03/09/2014 14:00:38 MMR 06/12/2012 completed Not Available [facility] 03/09/2014 14:00:38 Past Encounters Encounter ID Performer Location Encounter Start Date Encounter Closed Date Diagnosis/Indication Diagnosis SNOMED-CT Code Diagnosis ICD10 Code Diagnosis IMO Codes Diagnosis Note [id number] [facility] [address] [facility] [address] [place] [address] 11/13/2006 00:00:00 [id number] [place] [address] 12/23/2006 00:00:00 [id number] [facility] [address] [place] [address] 07/28/2007 00:00:00 [id number] auto[facility] erce [address] [facility] [address] [place] [address] 12/06/2008 00:00:00 [id number] auto[facility] erce [address] [place] [address] 03/25/2009 00:00:00 [id number] [facility] [facility] [address] [place] [address] 04/28/2009 00:00:00 [id number] auto[facility] erce [address] [facility] [place] [address] 11/11/2009 00:00:00 [id number] auto[facility] erce [address] [facility] [place] [address] 12/20/2009 00:00:00 [id number] auto[facility]Comm erce [address] [facility] [place] [address] 02/17/2010 00:00:00 [id number] autoEComm erce [address] [facility] [place] [address] 07/25/2010 00:00:00 [id number] auto[facility] erce [address] [facility],[address] [place] [address] 09/13/2010 00:00:00 [id number] auto[employer]Comm erce [address] [facility] [place] [address] 11/11/2010 00:00:00 [id number] auto[employer]Comm erce [address] [facility] [address] [place] [address] 02/01/2011 00:00:00 [id number] auto[facility]Comm erce [address] [facility],[address] [place] [address] 02/05/2011 00:00:00 [id number] auto[facility] erce [address] [place] [address] 02/06/2011 00:00:00 [id number] [facility] [facility] [address] [place] [address] 02/15/2011 00:00:00 [id number] auto[facility]Comm erce [address] [facility] [address] [place] [address] 03/08/2011 00:00:00 [id number] auto[facility] erce [address] [facility] [address] [facility] [address] [place] [address] 11/26/2011 00:00:00 [id number] auto[facility] erce [address] [facility] [address] [place] [address] 11/30/2011 00:00:00 [id number] auto[facility] erce [address] [facility] [place] [address] 01/09/2012 00:00:00 [id number] auto[employer]Comm erce [address] [facility] [place] [address] 03/25/2012 00:00:00 [id number] auto[facility]Comm erce [address] [facility] [address] [place] [address] 06/12/2012 00:00:00 [id number] auto[facility]Comm erce [address] [facility] [place] [address] 07/08/2012 00:00:00 [id number] auto[facility]Comm erce [address] [facility] [place] [address] 09/01/2012 00:00:00 [id number] autoEComm erce [address] [facility] [address] [place] [address] 09/05/2012 00:00:00 [id number] autoEComm erce [address] [facility] [address] [place] [address] 10/16/2012 00:00:00 [id number] auto[facility]Comm erce [address] [facility] [address] [place] [address] 12/15/2012 00:00:00 [id number] autoEComm erce [address] [facility] [place], [place] [address] 05/09/2013 00:00:00 [id number] autoEComm erce [address] [facility] [place], [place] [address] 07/27/2013 00:00:00 [id number] autoEComm erce [address] [facility] [place], [place] [address] 12/25/2013 00:00:00 [id number] autoEComm erce [address] [facility] [place], [place] [address] 01/16/2014 00:00:00 [id number] SARAH Agrawal Main Office [address] [facility] [place] [address] [place] [address] 05/18/2014 10:10:59 05/18/2014 10:49:51 Dysuria 51154471 UA c/w UTI, will tx and send culture Acute pharyngitis 499930524 rapid strep neg. [id number] Juan Diego Cali MD Main Office [address] [facility] [place] [address] [place] [address] 05/29/2014 11:51:21 05/29/2014 12:23:45 Cough 71851589 Sounds inflammato ry in nature likely post viral infection vs allergy related. No current evidence for bacterial process. Will address inflammati on/broncho constricti on while waiting to see if allergy rx helps. Would need re-eval and consider of abx/CXR if persistent or sputum becomes purulent. [id number] SARAH Velasco Main Office [address] [facility] [place] [address] [place] [address] 06/08/2014 13:52:54 06/08/2014 14:36:30 Palpitations 44855992 likely the endocrine system resetting itself after being on prednisone . reassuranc e. call if worsening [id number] SARAH Agrawal Main Office [address] [facility] [place] [address] [place] [address] 09/20/2014 11:26:27 09/20/2014 11:45:06 Backache 555661903 Continue cyclobenza tete and finish course of prednisone , just started 2d ago, if back pain persists/w malaika will refer to PT. [id number] William Johnson [facility] Main Office [address] [facility] [place] [address] [place] [address] 11/08/2014 09:40:15 11/08/2014 10:41:46 Acute pharyngitis 448224457 Cough 02704121 with fever and body aches on day 6, suspect bacterial process such as pneumonia. will treat empiricall y. f/u if worsening [id number] William Arteagaандрей [facility] Main Office [address] [place], [place] [address] 11/17/2014 16:24:25 11/17/2014 17:32:05 Palpitations 68011222 Atrial fibrillation 60067717 new onset with RVR. not clear if pain in her upper back is related to the afib. to ER for lowering HR and further assessment for new onset afib Neck pain 78573843 with radiating sxs. likely a cervical radiculopa thy. but it is possible that it is something cardiac related to the afib. will be further assessed in the ER. [id number] William Johnson [place] Main Office [address] [facility] [place] [address] [place], [place] [address] 11/23/2014 13:19:45 11/23/2014 14:23:50 Atrial fibrillation 99830988 rate wel l controlled . she will f/u with cardio as planned. Spinal guerrero nosis in cervical region 53150847 concerning that she has a positive babinski [...] before next visit in 2 wks. Snoring 58123572 Thyroid nodule 652449423 Insomnia 804905472 see abo ve discussion about gabapentin [id number] Omayra rush MD Main Office [address] [facility] [place] [address] [place] [address] 12/13/2014 14:13:19 12/13/2014 14:49:18 Atrial fibrillation 03657256 on meds below and doing well continue followup with cardiology Degenerati on of cervical intervertebral disc 93410154 trial of tramadol Thyroid nodule 910131003 p t will get thyroid nodule looked at, most likely will get biopsy Edema 866473038 [id number] Omayra rush MD Main Office [address] [address] [place] [address] 12/29/2014 09:06:58 12/29/2014 10:00:23 Adult health examination 132619423 utd on screening Degenerati on of cervical intervertebral disc 50567514 pt is on tramadol and it helps, still having pain, pt is waiting for PT apt, will have my staff call and check on it Atrial fibrillation 58598330 on meds below and doing well continue followup with cardiology , only on FS asa and cartia, continue Thyroid nodule 674802588 n eedle biopsy later this month, will hold asa for 5 days prior and then will ask thyroid surgeon when she can restart, keep on all other rmeds Edema 718365614 [id number] SARAH Love Main Office [address] [address] [place] [address] 08/03/2015 11:18:40 08/03/2015 11:44:57 Cough 63858649 R05 Symptomati c treatment- lots of fluids, rest, tea with honey, OTC cough drops/ cough med as needed, humidifier as needed. Tylenol or ibuprofen for fever/ pain. Return for worsening/ concerns. [id number] Bela Mondragon PA-C Main Office [address] [address] [place] [address] 12/19/2015 09:57:59 12/19/2015 11:39:30 Palpitations 85764519 R00.2 Rapid atri al fibrillation 513997851 I48.91 Pt. is referred by ambulance to [facility] ER for management of rapid arrhythmia . PT. was maintained on O2 by nasal canula on 2L until paramedics arrived. Pt. will be seen in hospital f/u after the discharge and sleep study will be arranged for her. Note faxed to ER. [id number] Bela Mondragon PA-C Main Office [address] [facility] [address] [place] [address] 12/21/2015 10:51:33 12/21/2015 11:58:58 Paroxysmal atrial fibrillation 189984132 I48.0 Recommend to avoid alcohol. Check TSH and CBC. Schedule echocardio gram and sleep study. Consider cardiac referral. Panic disorder 537265439 F41.0 Pt. is on Tramadol for neck pain which will interact with SSRIs. Will recommend to restart counseling [facility] and use Lorazepam PRN for panic attacks. PT. will address this at f/u with PCP. Snoring 73494180 R06.83 Sleep study referral is made to do RIVER. [id number] Omayra rush MD Main Office [address] [facility] [address] [place] [address] 01/02/2016 13:10:18 01/02/2016 14:49:25 Paroxysmal atrial fibrillation 429808853 I48.0 2 documented episodes total, one in 12/09 and one a year ago. THe one in in 12/09 was after heavy drinking the night before, pt with a small PFO on Echo, will start a baby aspirin and see dR Brandt tomorrw Edema 961023296 R60.9 continue hctz Pain of joint 34326034 M 25.50 pt with diffuse joint pain, she finds she is so much more comfortabl e on tramadol 100mg bid Patent foramen ovale 204 372627 Q21.1 seen on echo, started pt on a baby aspirin today Anxiety 68907657 F41.9 will work on this and her eating issues, she feels she is addicted to food. meetin with Gretta today [id number] Omayra rush MD Main Office [address] [place] [address] 01/20/2016 14:12:02 01/20/2016 15:11:46 Adult health examination 935439457 Z00.00 utd on screening Screening for malignant neoplasm of breast 813379640 Z12.39 pt will arrange Patent foramen ovale 204 877676 Q21.1 seen on echo, started pt on a baby aspirin and cardiology has reviewed with her Paroxysmal atrial fibrillation 496137050 I48.0 2 documented episodes total, one in [...] a shorter monitor she could do Edema 941740621 R60.9 continue hctz [id number] Omayra rush MD Main Office [address] [facility] [place] [address] [place] [address] 06/06/2016 13:54:52 06/06/2016 14:26:07 Atrial fibrillation 72547061 I48.91 regular rhythmn today, on baby aspirin, no recent episodes. one was associated with alcohol in the past Acute pharyngitis 323251 003 J02.9 neg quick strep, seems viral Cough 97080245 R05 use cough med no abx needed [id number] Lan Oliver MD Main Office [address] [address] 06/09/2016 10:25:58 06/09/2016 11:21:14 Cough variant asthma 243272867 J45.991 She was instructed to call next week if her symptoms persist. This may be a URI which has set off asthma. [id number] Bela Mondragon PA-C Main Office [address] [address] 06/11/2016 10:46:37 06/11/2016 11:26:31 Asthmatic bronchitis 171299423 J45.909 R/o pneumonia. Chest XRAy to be done. Continue Prednisone . Taper down to 40 mg for 2 days, 30 for 2 days, 20 for 2, 10 for 2. UP draft with Albuterol given in the office. Continue cough meds , rest and fluids. [id number] SARAH Love Main Office [address] [facility] [place] [address] [place] [address] 06/29/2016 15:09:06 06/29/2016 15:58:04 Acute bacterial bronchitis 291735393 J20.9 Improving though she does still have a cough, will repeat CBC to check WBC. Continue inhaler/ cough med as needed. Elevated blood-pressure reading without diagnosis of hypertension 781511010 R03.0 High BP today, patient notes her BP has been higher lately, will have her f/u in 2 weeks for recheck of BP and she will have BMP done. [id number] Bela Mondragon PA-C Main Office [address] [place] [address] [place] [address] 07/30/2016 13:44:57 07/30/2016 14:59:36 Benign essential hypertension 6623310 I10 [id number] Bela Mondragon PA-C Main Office [address] [address] [place] [address] 10/26/2016 14:44:08 10/26/2016 15:35:24 Acute pharyngitis 989627563 J02.9 Sat water gargles and take OTC pain meds. Elevated blood-pressure reading without diagnosis of hypertension 860872975 R03.0 BP remains borderline . Pt. is on HCTZ 25 mg and is recommende d to continue. Repeat BMP. F/u with PCP in 3-4 m. Keep low sodium and low caffeine diet. [id number] Juan Diego Cali MD Main Office [address] [place] [address] [place] [address] 10/27/2016 10:46:26 10/27/2016 11:22:38 Acute pharyngitis 032365292 J02.9 Given active abx therapy which should [...] swallow oral secretions . Exudative pharyngitis 12 5238137 J02.9 [id number] Cabrera Mondragon PA-C Main Office [address] [place] [address] [place] [address] 10/30/2016 08:51:17 10/30/2016 09:54:13 Acute pharyngitis 396460538 J02.9 strep neg, but persists despites 10 days of amox - ? monet-tonsi lar abscess - see below Dental abscess 609812995 K04.7 s/p amox x 10 days - next f/u 3.28 for tooth extraction Peritonsillar abscess 15 211146 J36 ? caused by dental abscess? Low back pain 622803147 M54.5 Impacted cerumen 1757603 6 H61.21 mild - mod R ear [id number] Omayra rush MD Main Office [address] [facility] [place] [address] [place] [address] 11/26/2016 08:54:30 11/26/2016 09:29:41 Amenorrhea 28152781 N91.2 neg test Gastroesop hageal reflux disease 450387194 K21.9 untx, quite symptomati c, that is what nausea is form, tx and check h pylori Nausea 466080841 R11.0 due to GERD return 6 weeks, check any discomfort after eating is resolved, if not refer to GI Body mass index 40+ - severely obese 436130517 Z68.41 Obesity 817849738 E66.9 [id number] Omayra rush MD Main Office [address] [facility] [address] [place] [address] 01/25/2017 14:31:24 01/25/2017 15:18:18 Adult health examination 168796631 Z00.00 utd on screening except mammogram, pt iwll arrange, needs to work on diet and exercise Screening for malignant neoplasm of breast 456592141 Z12.39 pt will arrange Urinary incontinence 165 290485 R32 on meds Morbid obesity 125182312 E66.01 Obesity 167680406 E66.9 Paroxysmal atrial fibrillation 030327452 I48.0 2 documented episodes total, one in [...] trigger for afib Pain in right knee 73500 22128 44108 M25.561 Sleep apnea 55003339 G47 .30 pt tested positive but has not gotten CPAP yet, needs to make a visit [id number] SRAAH Love Main Office [address] [place] [address] 10/10/2017 15:31:26 10/10/2017 16:02:27 Wheezing 14723870 R06.2 Cough 97311248 R05 Symptomati c treatment- lots of fluids, rest, tea with honey, OTC cough drops/ cough med as needed, humidifier as needed. Tylenol or ibuprofen for fever/ pain. Return for worsening/ concerns. Delsym OTC. Acute bronchitis 4544771 2 J20.9 Pain in right knee 08748 04802 55838 M25.561 had been on tramadol then lost her insurance, requests refill. will fill x 1 month and she will need f/u with PCP to get re-establi shed with med. [id number] Cabrera Mondragon PA-C Main Office [address] [place] [address] 10/28/2017 15:53:21 10/28/2017 17:35:33 Cough 20726365 R05 check cxr to r/o pna -- ? d/t pnd Pain of right wrist 3169 307675 50716 M25.531 ? CTS - neg tinels/pha lens/finkl estein -- will get OT eval and rec use wrist splint hs Allergic rhinitis 336293 04 J30.9 Asthma 226622572 J45.20 [id number] Cabrera Mondragon PA-C Main Office [address] [address] 11/18/2017 13:44:44 11/18/2017 15:46:12 Cough 78497927 R05 neg cxr, less but persists - pt concerned - see below Dyspnea 988297579 R06.00 nl ekg and spirometry - offered re-assuran ce Asthma 738421675 J45.20 will check spirometry - see above - yue nl, but pt used to take advair yrs ago and states she feels like her lungs are still inflamed/h ave a lot of mucous - will give trial of ICS to see if help Paroxysmal atrial fibrillation 530895488 I48.0 no problems c this in a long time - see above Obstructiv e sleep apnea syndrome 29574447 G47.33 no get cpap machine - encouraged pt to f/u c sleep med Seasonal a llergic rhinitis 866818729 J30.2 cont singulair as dir [id number] Omayra rush MD Main Office [address] 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 [id number] Cabrera Mondragon PA-C Main Office [address] [facility] [address] [place] [address] 03/27/2018 11:24:04 03/27/2018 12:19:20 Lateral epicondylitis 173353578 M77.11 will give 2 options of TE support - she will decide which is covered better / fits better, as well as rec wrist support at hs d/t her sleeping position (R hand bent under head - full wrist flexion), and get pssp eval [id number] Cabrera Mondragon PA-C Main Office [address] [facility] [address] [facility] [place] [address] 06/11/2018 09:23:10 06/11/2018 10:12:36 Body mass index 40+ - severely obese 846592503 Z68.42 urged pt to see nutritioni in [place], and if no sig improvemen t then [...] counseling and/or coordinati on of care. Fatigue 16610862 R53.83 Anxiety 20635788 F41.9 see above re: therapist Morbid obesity 167113051 E66.01 [id number] Omayra rush MD Main Office [address] [place] [address] 07/30/2018 10:40:47 07/30/2018 11:37:06 Acute asthma 398739688 J45.901 not on any control meds, will start inhaled steroid, pre proair and singulair and return in 3 months will get spirometry then [id number] Juan Diego Cali MD Main Office [address] [place] [address] 01/12/2019 09:27:00 01/12/2019 10:40:07 Indigestion 381784154 K30 regular diet, avoid offending foods. Trial of PPI and check for recurrence of hpylori. Has followup with Dr Veena Mccarthy in a month Pain in left knee 014129 9483 78819 M25.562 PT, discuss at followup, will try physical therapy, pt has multiple joint pains for years Diarrhea 57530203 R19.7 ? IBS, try daily fiber and probiotic, followup in a month, if not better consider GI eval. Pt can try dairy eliminatio n for a week, does not have symptoms of gluten intoleranc e. [id number] Omayra rush MD Main Office [address] [address] 02/02/2019 15:28:28 02/02/2019 16:19:18 Adult health examination 098243090 Z00.00 eating better, wants to lose weight, is due for mammogram Screening for malignant neoplasm of breast 266003958 Z12.39 we will arrange due to lack of followthfo ugh Patent foramen ovale 204 808241 Q21.1 seen on echo, started pt on a baby aspirin and cardiology has reviewed with her Paroxysmal atrial fibrillation 434443006 I48.0 2 documented episodes total, one in [...] during the week. Lymphedema of lower extremity 620345390 I89.0 better on meds, continue hctz Obstructiv e sleep apnea syndrome 06185181 G47.33 pt ot see sleep medicine again, should retry cpap Body mass index 40+ - severely obese 835151255 E66.01 Z68.42 pt to lower carbs, hard for her to keep on the healthy eating track. [id number] Juan Diego Cali MD Main Office [address] [facility] [place] [address] [facility] [address] 04/07/2019 13:19:55 04/07/2019 14:23:48 Pain in left knee 6107958750 83119 M25.562 ? PFS vs other - will [...] on of care. Gastroesop hageal reflux disease 486641061 K21.9 [id number] Omayra rush MD Main Office [address] [facility] [place] [address] [place] [address] 12/31/2019 13:03:19 12/31/2019 14:22:13 Asthma 873941675 J45.909 pt will restart med Urge incon tinence of urine 37657320 N39.41 urology had patient on oxybutynin . will restart Lymphedema of lower extremity 507818875 I89.0 better on meds, will try chlorthali done [id number] Ph[facility] [place] [address] [place] [address] 01/08/2020 15:07:08 01/11/2020 08:39:09 Indigestion 601310347 K30 most likely in response to starting sertraline . Pt tried taking Tums but had no relief. WE will try PPI over the week end and if still having indigestio n discomfort , call after the weekend and be seen in the office to check her EKG. Generalize d anxiety disorder 33804473 F41.1 contineu SSRI as prescribed by psych. MIght be experienci ng symptoms of indigestio n due to SSRI as well. Lymphedema of lower extremity 794067288 I89.0 continue diuretic, but pt. was advised to have labs done not later than after the week end. [id number] Lan Oliver MD [place] [address] [place] [address] 04/01/2020 07:58:50 04/01/2020 15:09:46 Abdominal pain 75730698 R10.9 She will try simethicon e. There was nothing on her history that warranted immediate attention and she was advised to call the office in the am if it persisted. [id number] Omayra rush MD [place] [address] [place] [address] 04/22/2020 06:41:45 04/24/2020 10:57:02 [id number] Omayra rush MD Main Office [address] [place] [address] [place] [address] 05/30/2020 15:06:28 05/30/2020 16:57:55 Adult health examination 168503261 Z00.00 Pt has concerns about her weight and is under stress with family and work. Social and family history reviewed. Immunizati ons reviewed, advised annual flu shot, will get at [facility] as we do not have any in stock at this time. . 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 declines medication at this time. NO SI or HI, Addiction 83144332 R46.8 1 Pt feels she has a food addiction, recommende d to go to OA or call to see if any virtual meetings. Most of the appt spent talking about food, eating and stress/anx iety related to this. She will reach out to the counselor, suggested some ideas for this. Elevated blood-pressure reading without diagnosis of hypertension 008225604 R03.0 Pt under stress today, tearful, recheck at next ov Mild inter mittent asthma 115454946 J45.20 stable at this time, uses montelukas t Morbid obesity 130489041 E66.01 Pt will look into OA program. Suggested lowering carbs, more protein, no meal skipping and tips to avoid night eating. Advised to try and me more active. Short term followup [id number] Omayra rush MD Main Office [address] [facility] [place] [address] [place] [address] 12/28/2020 10:59:55 12/28/2020 14:58:13 Cervical radiculopathy 35356972 M54.12 Will do a trail of NSAID [...] compress.N willow exercises provided. Urinary incontinence 165 290681 R32 She was on oxybutynin 20 ER, she has a hx of small bowel obstructio n she requested a refill at that dose, given hx of small bowel obstructio n I think it might not be a bad idea for patient to discuss with urology if other options can be explored and she agreed to this. Medial epicondylitis 532 74170 M77.01 Will do trial of NSAID, Patient aware risk of GI bleed as she is also on elaquis. She was told to take with meal. If any signs of bleeding she was asked to stop and let us know. [id number] Omayra rush MD Main Office [address] [facility] [address] [place] [address] 01/09/2021 15:56:27 01/10/2021 09:57:35 Paroxysmal atrial fibrillation 953456006 I48.0 pt is followed by cardiology , remains on eliquis, flecanide and metoprolol for now. Seems to be in NSR today, no sx. Advised to consider sleep studay repeat and work on wt loss. Pt wiil consider Body mass index 40+ - severely obese 886307617 E66.01 Z68.41 Pt will decide on seo analyst appt, will try cutting back, walking. Discusse OA program Generalize d anxiety disorder 46968149 F41.1 pt agrees to continue with her counselor to discuss issues especially her wt and eating compulsion . declines medication at this time. NO SI or HI, [id number] Omayra rush MD Main Office [address] [facility] [place] [address] [place] [address] 01/25/2021 14:49:47 01/25/2021 16:14:43 Cervical radiculitis 44981495 M54.12 trial of short pred taper to decrease inflammati on with radiculopa thy. Side effects reviewed. Cervical radiculopathy 94473347 M54.12 stay on gabapentin , can use bid if not too drowsy, or can use 2 at bedtime Acute thor acic back pain 383704071 M54.6 check xay, do stretches, advised PT, pt will consider Body mass index 40+ - severely obese 268396336 E66.01 Z68.41 pt would like to see seo analyst, will do a referral [id number] Omayra rush MD [facility] [address] [facility] [address] [place] [address] 02/13/2021 08:33:32 02/13/2021 14:20:43 Tendinitis of right elbow 5276232896 3057480 M67.823 continued right elbow pain, sounds like tendonitis , ice and set up appt at [facility] for cortisone injection Pain of le ft shoulder blade 818302305 M25.512 pt with muscular pain around left scapula into neck and shoulder, most likely related to muscular pain form poor posture, left sided pectoralis insertion pain on and off, does not feel like pts cardiac pain and it is positional , no need for cardiac eval. pt to set up PT, use a roller on upper back Pain of le ft shoulder joint 8569352044 9111910 M25.512 related to muscular pain from neck and back [id number] Omayra rush MD Main Office [address] [facility] [address] [place] [address] 06/23/2021 13:56:44 06/23/2021 15:13:56 Adult health examination 798354671 Z00.00 Pt has concerns about her weight and is under stress with family and work but stable at this time. Social and family history reviewed. Immunizati ons reviewed, advised annual flu shot,, will be due for Tdap next year . 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 declines medication at this time. NO SI or HI, Spent time disussing family issues around teen age daughter Paroxysmal atrial fibrillation 083476975 I48.0 pt is followed by cardiology , remains on eliquis, flecanide and metoprolol for now. Seems to be in NSR today, no sx. Advised to consider sleep study repeat and work on wt loss. Pt wiil consider sleep evaluation Mild inter mittent asthma 864281425 J45.20 stable at this time, has proair prn Morbid obesity 286588209 E66.01 Pt will look into seo analyst. Suggested lowering carbs, more protein, no meal skipping and tips to avoid night eating. Advised to try and me more active. Screening for malignant neoplasm of breast 067385090 Z12.39 [id number] Omayra rush MD Main Office [address] [facility] [address] [place] [address] 12/13/2021 07:41:49 12/13/2021 11:53:08 [id number] Omayra rush MD [facility] [address] [place] [address] 04/08/2022 15:01:10 04/09/2022 10:56:34 Pain in right arm 308196433 M79.601 had to call into a different pharmacy, first one closed will treat for 2 days since weekend then needs in person appt, could be radicular pain, unable to tell without exam [id number] Juan Diego Cali MD Main Office [address] [facility] [address] [facility] [place], [place] [address] 04/18/2022 14:48:18 04/18/2022 16:00:22 Cervical radiculitis 31608069 M54.12 will get pmr eval, and give trial of gbn -- could consider tyl 500mg 1-2 tabs up to 3x/day as well Paroxysmal atrial fibrillation 070364378 I48.0 encouraged pt to resume eliquis as per card - if too $$, then consider coumadin [id number] Omayra rush MD Main Office [address] [facility] [place] [address] [place] [address] 06/20/2022 13:57:16 06/20/2022 15:17:51 Adult health examination 847110999 Z00.00 Pt has concerns about her weight and is under stress with family and work but stable at this time. Social and family history reviewed. Immunizati ons reviewed, advised annual flu shot, due for Tdap, covid booster. She will do appt at the pharmacy. 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 declines medication at this time. NO SI or HI, Spent time discussing family issues Paroxysmal atrial fibrillation 781005577 I48.0 pt is followed by cardiology , remains on eliquis, flecanide and metoprolol for now. Seems to be in NSR today, no sx. Advised to consider sleep study repeat and work on wt loss. Pt will consider sleep evaluation Mild inter mittent asthma 031869759 J45.20 stable at this time, has proair prn Morbid obesity 060112766 E66.01 Pt will look into seo analyst. Suggested lowering carbs, more protein, no meal skipping and tips to avoid night eating. Advised to try and me more active. Screening for malignant neoplasm of breast 080635275 Z12.39 Body mass index 40+ - severely obese 398703171 Z68.43 pt would like to see seo analyst, will do a referral [id number] Juan Diego Cali MD Main Office [address] [place] [address] 09/26/2022 15:38:56 09/26/2022 16:43:10 Mild intermittent asthma 999124429 J45.20 rec cont montelukas t as dir, advised pt on how to use flovent x few wks - when feeling better can stop, but cont alb 5-30min ac exercise in future Paroxysmal atrial fibrillation 610537088 I48.0 cont meds, f/u c card as dir Obstructiv e sleep apnea syndrome 99359164 G47.33 seen by sleep med earlier today, will get updated sleep study Dyspnea 931534625 R06.00 negative cardiac w/u - ? d/t asthmatic bronchitis / post viral syndrome vs deconditio ashlee / obesity -- check probnp Impaired f asting glycemia 254517370 R73.01 Fatigue 39926856 R53.83 Pain of le ft hip joint 1660845067 11700 M25.552 check xray - pain x several months - r/o djd - if sig, then get ortho eval [id number] Juan Diego Cali MD [facility] [address] [facility] [address] [place] [address] 12/04/2022 08:29:26 12/04/2022 10:25:23 Cough 93227866 R05.9 rec celine or mucinex, suspect pnd == sinusitis - see below Acute sinusitis 28571703 J01.90 rec cont ns spray prn, consider warm washcloth to side of neck recommend probiotics while on abx Acute conjunctivitis 669 00280 H10.33 she left her contacts in for ~ 48 hours - suspect corneal ulceration - strongly encouraged pt to see her eye md, meanwhile will rx c abx eye ointment [id number] Juan [facility] Cal[facility] [address] [facility] [address] [place] [address] 01/08/2023 15:46:57 01/08/2023 16:25:29 Urinary tract infectious disease 25786074 N39.0 pt declines giving urine sample, so will rx empiricall y c cipro cont push fluids, consider cranberry juice, also consider prn pyridium recommend probiotics while on abx Seasonal a llergic rhinitis 589594869 J30.2 rec resume singulair as dir, or consider claritin, cont prn ns spray to help lessen pndrtc next week (needs ov not TH) if cough persists [id number] Juan Diego Cali MD Main Office [address] [place] [address] [address] [place] [address] 04/17/2023 15:26:53 04/17/2023 16:56:58 Left lateral elbow tendinopathy 9828725460 92453 M77.12 trial c TE support, cool compress prn, wrist splint o/n -- if no better call us - consider ortho for sandoval injxn Skin lesion 46478428 L98 .9 most likely epidermoid cyst - will get derm eval, ? may need to see general surgeon if they cannot remove Pain in bi lateral feet 4975831917 6272893 M79.671 better lately, no evidence / suspicion of fx [id number] Giorigo Machado MD Main Office [address] [place] [place] [address] [place] [address] 04/19/2023 13:10:00 04/19/2023 13:40:50 Abdominal pain 35777288 R10.9 Acute abdomen, refer to emergency department . PT. refused to go by ambulance. Will drive to [facility]. Call ahead placed to [facility] ER. [id number] MOLLY LAM MD Main Office [address] [place] [place] [address] [place] [address] 04/26/2023 10:09:45 05/10/2023 16:14:02 [id number] ДМИТРИЙ TAYLOR Main Office [address] [place] [place] [address] [place] [address] 07/24/2023 14:43:32 07/24/2023 15:27:47 Cough 06942780 R05.9 -in office RSV, flu, and covid are negative-d iscussed OTC interventi ons to help with a cough Acute sinusitis 61387629 J01.90 -x3 weeks of symptoms of sinus pressure, nasal congestion , cough, post nasal drip, and sore throat-guanakito al decongesta nts provide minimal relief-exp osed to other coworkers with similar symptoms-P E revealed sinus tenderness to the frontal sinus, erythemato us posterior oropharynx and nasal discharge- will start pt on augmentin x10 day course Mild inter mittent asthma 959696473 J45.20 per pt request, refill Health Concerns Section Related Observation LastModified by Organization Detai ls LastModified Time None Recorded Concern Status LastModified by Organization Details LastModified Time None Recorded Advance Directives Directive N: Payers Insurance Date Sequence Insurance Name Policy Number Policy Pollard Covered Member ID Pollard Member ID Guarantor Name 12/13/2020 1 [facility] - DIRECT CONNECTORCARE TYPE I (HMO) [id number] Steph Neal [id number] Steph Neal 03/19/2024 1 [facility] - DIRECT CONNECTORCARE TYPE I (HMO) [id number] Steph Neal [id number] Steph Neal 09/09/2014 1 [facility] - [place] (MEDICAID REPLACEMENT - HMO) [id number] Steph Neal [id number] Steph Neal 10/10/2017 2 [place] [facility] Steph Neal [id number] Steph Neal 06/23/2021 PAYMENT PLAN Steph Neal 10/10/2017 1 [facility] - BE HEALTHY - MEDICAID ESSENTIAL (MEDICAID HMO) [id number] Steph Neal [id number] Steph Neal 12/13/2020 2 [facility] - DIRECT CONNECTORCARE TYPE I (HMO) Steph Neal [id number] Steph Neal Notes Date Note Type Note Provider Name and Address Organization Details Recorded Time 3 text/html Patient has been having urinary Pressure and frequency . Patient has noticed spasms after urinating since Saturday. no f/c, hematuria Cabrera Mondragon PA-C [address] [address], [place], [address], [facility] 01/08/2023 16:19:43 3 text/html pt had B foot pain x few wks, up until recently - now resolvedcurr c/o L elbow painno trauma to feet or LUEdoes sleep c L wrist flexed occ.also c/o lesion on her back - boyfriend is concerned, no pus dc, no f/c Cabrera Mondragon PA-C [address], [place], [address], [facility] 04/20/2023 13:37:29 3 text/html ROS as noted in the HPI 47 year old female c/o acute R. mid to lower abdominal pain started yesterday morning and gradually worsened in severity. Non radiating, no nausea. NO fever, chills. NO prior h/o similar pain, renal calculi. Urine with hemolyzed trace of blood and ketones. Bela Mondragon PA-C [address], [place], [address], [facility] 04/19/2023 14:39:26 3 text/html Hospitalization Contact RecordReported by PatientHospitalization Contact RecordFor follow up, patient reportshospital[facility],admit date: (please enter in format [...] hrs prn pain (30 tabs). ANJU Sewell, [facility] 05/10/2023 16:14:01 3 text/html Sinusitis/AllergyReported by [...] sob, or chest pain. 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 Requests RSV + flu testing. Home covid test is negative. Lan Oliver MD [address] [address], [place], [address], [facility] [place] 07/30/2023 09:10:02 OBGyn Episode No OBEpisode recorded.
== END 2025-08-09 14:48 | disposition home or self-care (01) ==
LOC: HO.HCS 14:19
DX: I48.0 Paroxysmal atrial fibrillation (principal); E66.01 Morbid (severe) obesity due to excess calories
CPT/HCPCS: 93010; 99214

== ENCOUNTER → 2025-08-09 14:18 | Outpatient (BNVA) | payer MEDICAID, SELFPAY | DX: I48.0 Paroxysmal atrial fibrillation (principal); E53.8 Deficiency of other specified B group vitamins; E66.01 Morbid (severe) obesity due to excess calories; Z68.43 Body mass index [BMI] 50.0-59.9, adult; Z79.01 Long term (current) use of anticoagulants | CPT/HCPCS: 93005; 99212 ==

== ENCOUNTER 2025-08-11 13:28 | Outpatient (AMB) | payer MEDICAID, SELFPAY ==
[2025-08-11 13:29] VITALS: BP 132/74; BMI 50.9
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
== END 2025-08-11 15:06 | disposition home or self-care (01) ==
LOC: HO.HWSM 13:28
PROVIDERS: Visit Provider Advanced Practice Midwife
DX: Z01.419 Encounter for gynecological examination (general) (routine) without abnormal findings (principal); T83.32XA Displacement of intrauterine contraceptive device, initial encounter; Z12.4 Encounter for screening for malignant neoplasm of cervix; Z68.43 Body mass index [BMI] 50.0-59.9, adult
CPT/HCPCS: 99386; 99459

== ENCOUNTER 2025-08-11 13:28 | Outpatient (REF) | payer MEDICAID, SELFPAY | END 2025-08-11 13:29 | disposition home or self-care (01) | LOC: HO.LNP 13:28 | PROVIDERS: Visit Provider Advanced Practice Midwife | DX: Z01.419 Encounter for gynecological examination (general) (routine) without abnormal findings (principal); T83.32XA Displacement of intrauterine contraceptive device, initial encounter; L30.4 Erythema intertrigo; Z11.51 Encounter for screening for human papillomavirus (HPV); Z68.43 Body mass index [BMI] 50.0-59.9, adult; Z79.01 Long term (current) use of anticoagulants | CPT/HCPCS: 87626; 88175 ==

== ENCOUNTER 2025-08-15 05:55 | Emergency (ER) | payer MEDICAID, SELFPAY ==
[2025-08-15 06:01] VITALS: BP 134/81; PULSE 73; RESP 18; TEMP 36.5; O2SAT 94; BMI 49.7
--- OUTSIDE RECORDS SUMMARY | 2025-08-15 06:38 | XMS_ITS | Data Portability ---
Author Organization [place] - [facility], Allergy Address [address] [place] [address] Assessment Encounter Date Assessment Date Assessment LastModified [...] Recorded Time Impacted cerumen in right ear [id number] 27706 Active 2016 Impacted cerumen, right ear; Note: Date Diagnosed : 10/31/2016 4:26 PM (H61.21) Not Available [facility] 4 02:25:57 Acute tonsillit is 11370372 Active 2016 Acute tonsillit is, unspecifi ed; Note: Date Diagnosed : 10/31/2016 4:28 PM (J03.90) Not Available [facility] 4 02:26:11 Otalgia of right ear 5692321761 Active 2016 Otalgia, right ear; Note: Date Diagnosed : 10/31/2016 4:26 PM (H92.01) Not Available [facility] 4 02:25:51 Snoring 71726012 Active 2023 MINNIE CHRIS MD [address] [place] [address], [facility] [place], [address] , [place] - [facility] 4 15:20:59 Problem Notes None recorded. Procedures Surgical History Date Name Laterality Status Provider Name and Address Organization Details Recorded Time Appendectomy completed Mandi Wisdom A - [facility] 04/17/2024 14:56:12 Imaging Results None recorded. Procedure Notes None recorded. Medical Equipment None Reported. Allergies Allergen ID Allergen Name Allergen Category Reaction Reaction Severity Criticality Documentation Date Start Date Code Code System Note Provider Name and Address Organization Details Recorded Time 80124 clindamyc in hydrochlo ride medicatio n other Not available Not available 01/07/2024 55398 RxNorm React ion: unkno wn, unspe cifie d;; Not Available [facility] 4 00:55:38 Medications Name Sig Start [...] Updated DateTime 04/17/2024 172.72 cm 50.9 kg/m2 116601.44 g Mandi Castro [place] - [facility] 04/17/2024 15:03:16 Social History None recorded. Functional Status Question Answer Note LastModified by Organizat ion Details LastModified Time What is your level of alcohol consumption? Occasional [email or web address] Information not available 04/17/2024 Mental Status None [...] ICD10 Code Diagnosis IMO Codes Diagnosis Note 50524 MINNIE CHRIS MD [facility] [address] [address] 04/17/2024 14:13:00 04/17/2024 15:22:11 Snoring [id number] R06.83 Health Concerns Section Related Observation LastModified by Organization Detai ls LastModified Time None Recorded Concern Status LastModified by Organization Details LastModified Time None Recorded Advance Directives Directive None Recorded Payers Insurance Date Sequence Insurance Name Policy Number Policy Pollard Covered Member ID Pollard Member ID Guarantor Name 04/17/2024 1 [facility] (PP[facility] [id number] Steph Neal [id number] Steph Neal 04/17/2024 1 [facility] (HMO) [id number] Steph Neal [id number] Steph Neal 04/17/2024 1 [facility] (O) [id number] Steph Neal [id number] Steph Neal 04/17/2024 1 [facility] [id number] Steph Neal [id number] Steph Neal Notes Date Note Type Note Provider Name and Address Organization Details Recorded Time 04/17/2024 text/html ROS as noted in the HPI weight loss program [id number]/1/[address] [place] 46AHI 2.7 just started wegovy +snoringno hx of tonsil infections MINNIE CHRIS MD [address] [place] [address], [phone], [place] - [facility] 04/17/2024 15:22:03 OBGyn Episode No OBEpisode recorded.
--- OUTSIDE RECORDS SUMMARY | 2025-08-15 06:38 | XMS_ITS | Data Portability ---
Author Organization [facility], Main Office Address [address] [facility] [address] [place] [address] Care Team Providers Care [employer] Airspace Officer Name Role Phone MINNIE CHRIS Automotive Buyer [facility] Correspondence Transcriber HODA RAHMAN Orthopedic Surgeon [facility] Urologist [phone] JESS DELA CRUZ Barrel Washer Machine MOLLY LAM Primary Care Provider Assessment Encounter Date Assessment Date Assessment LastModified by Organization Details LastModified Time 01/08/2023 01/08/2023 This service was provided using telemedicine. Patient consented to video & audio visit Patient was located in the [facility]. Provider was located in the office. [...] DO Not Attach Compendium, Do Not Delete/merge, [id number] 3 15:18:01 rapid flu (A+B) 2022 023 CARMELO In-Office Order, Internal Use Only DO Not Attach Compendium DO Not Attach Compendium, Do Not Delete/merge, [id number] 3 15:28:10 rsv (respi ratory syncyt ial virus) , rapidsoniya al 2022 023 CARMELO In-Office Order, Internal Use Only DO Not Attach Compendium DO Not Attach Compendium, Do Not Delete/merge, [id number] 3 15:44:39 urinal ysis, dipsti ck 2022 023 [email or web address] In-Office Order, Internal Use Only DO Not Attach Compendium DO Not Attach Compendium, Do Not Delete/merge, [id number] 3 14:39:10 Referral dermat ologis t referr al 2022 023 [facility], [address], [address], [place], [address], 4 10:36:34 Procedures None record ed. Surgeries None record ed. Imaging None record ed. Medication Orders Flexmen tin 875 mg-125 mg tablet 2022 023 [email or web address]88518, [address] [facility] [place], [id number], 3 15:18:13 benzon atate 100 mg capsul e 2022 023 [email or web address]23327, [address] [facility] [place], [id number], 3 15:18:16 albute rol sulfat e HFA 90 mcg/ac tuatio n aeroso l inhale r 2022 023 [email or web address] #54811, [address] [facility] [place], [id number], 15:18:13 ciprof loxaci n 250 mg tablet 2022 [facility], [address] [facility], [place], [place], [id number], 15:55:22 Patient TargetsNo targets recorded. Patient Instructions Encounter Date Encounter Id Patient Instructions Last Modified By Organization Details Last Modified Time 01/08/2023 [id number] Follow up if no improvement or if symptoms worsen. [email or web address] Not available 01/08/2023 16:19:02 04/17/2023 [id number] tennis elbow: care instructions pmadden Not available 04/17/2023 16:48:46 tennis elbow: exercises pmadden Not available 04/17/2023 16:48:47 Follow up if no improvement or if symptoms worsen. pmadden Not available 04/17/2023 16:53:08 04/26/2023 [id number] 05/07/23- message left at home number to return my call, offer a hospital follow up as well as Pt is also due for a physical. 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 for S kin lesion Referring Physician: Cabrera Mondragon, Internal Medicine, Encounter Date: 04/17/2023 Results Created Date Observation Date Name Description Value Unit Range Abnormal Flag Note LastModifiedBy Organization Detail LastModifiedTime 04/19/2004/19/2023 urina lysis , dipst ick Leukocytes Negati ve Not Available In-Office Order Internal Use Only DO Not Attach Compendium DO Not Attach Compendium, Do Not Delete/merge, [id number] 04/19/2023 13:29:11 04/19/2004/19/2023 urina lysis , dipst ick Nitritie negati ve Not Available In-Office Order Internal Use Only DO Not Attach Compendium DO Not Attach Compendium, Do Not Delete/merge, [facility] 04/19/2023 13:29:11 04/19/20 23 04/19/2023 urina lysis , dipst ick Urobilinogen .2 Not Available In-Of fice Order Internal Use Only DO Not Attach Compendium DO Not Attach Compendium, Do Not Delete/merge, [facility] 04/19/2023 13:29:11 04/19/20 23 04/19/2023 urina lysis , dipst ick Protein Negati ve Not Available In-Office Order Internal Use Only DO Not Attach Compendium DO Not Attach Compendium, Do Not Delete/merge, [facility] 04/19/2023 13:29:11 04/19/20 23 04/19/2023 urina lysis , dipst ick pH 6.0 Not Available In-Office Order Internal Use Only DO Not Attach Compendium DO Not Attach Compendium, Do Not Delete/merge, [facility] 04/19/2023 13:29:11 04/19/20 23 04/19/2023 urina lysis , dipst ick Blood Hemoly zed: Trace Not Available In-Office Order Internal Use Only DO Not Attach Compendium DO Not Attach Compendium, Do Not Delete/merge, [facility] 04/19/2023 13:29:11 04/19/20 23 04/19/2023 urina lysis , dipst ick Specific Frankewing 1.005 Not Available In-Off ice Order Internal Use Only DO Not Attach Compendium DO Not Attach Compendium, Do Not Delete/merge, [facility] 04/19/2023 13:29:11 04/19/20 23 04/19/2023 urina lysis , dipst ick Ketone Trace Not Available In-Office Order Internal Use Only DO Not Attach Compendium DO Not Attach Compendium, Do Not Delete/merge, [facility] 04/19/2023 13:29:11 04/19/20 23 04/19/2023 urina [...] (PROC ) No observ ation record ed. [email or web address] [facility] (Medical Records) [address] [place], [address], 05/21/2023 11:11:15 05/22/20 23 05/21/2023 US, abdom en, compl ete No observ ation record ed. [email or web address] [facility] (Medical Records) [address] [place], [address], 05/22/2023 12:50:47 Result Notes None recorded. Problems Name Problem SNOMED Code Status Onset Date Resolution Date Notes Provider Name and Address Organization Details Recorded Time Patient status finding 510140213 Com[facility] 06/29/2016 [facility] 6 15:18:43 Backache 953739529 Completed 06/29/2016 LUIS FERNANDO Adams, [facility] 6 15:18:46 Urinary incontin ence 495035617 Active Belabryan CHOE-Man [address] [address], [place], [address], [facility] 6 12:28:32 Elevated blood-pr essure reading without diagnosi s of hyperten yue 038121855 Active Belajihan Mondragon PA-C [address] [address], [place], [address], [facility] 6 12:28:32 Pure hypercho lesterol emia 956654084 Completed [facility]/25/2017 [facility] 7 14:59:23 Recurren t major depressi ve episodes 689760384 Active Bela CHOE-C [address] [address], [place], [address], [facility] 6 12:28:31 Neck pain 71637222 Completed 01/25/2017 Omayra deluna [facility] 7 14:59:05 Obesity 174532365 Completed 01/08/2020 [employer] [address], [place], [address], [facility] 0 17:12:44 Osteoart hritis of knee 717047915 Active Bela [employer] [address], [place], [address], [place] [facility] 6 12:28:32 Morbid obesity 383524167 Active Bela [employer] [address], [place], [address], [facility] 6 12:28:31 Knee pain Completed 02/02/2019 Omayra deluna [facility] 9 15:55:45 Dysuria 03408111 Completed 06/29/2016 LUIS FERNANDO Adams, [facility] 6 15:19:10 Acute pharyngi tis 416570030 Completed 06/29/2016 LUIS FERNANDO Adams [facility] 6 15:19:04 Acute vaginiti s 54895594 Completed 06/29/2016 LUIS FERNANDO Adams, [facility] 6 15:18:52 Cough 27434934 Completed 06/29/2016 LUIS FERNANDO Adams [facility] 6 15:19:12 Palpitat ions 93949645 Completed 01/25/2017 Omayra deluna [facility] 7 14:59:02 Spasm of back muscles 480184462 Completed 01/25/2017 Omayra Glading-D ilorenzo null, [facility] 7 14:59:27 Atrial fibrilla tion 01784090 Completed 02/02/2019 Omayra deluan, [facility] 9 15:56:00 Spinal stenosis in cervical region 54951790 Completed 11/30/2014 mri does not show this Bela Giancarlo CHOE-C [address], [place], [address], [facility] 6 12:28:32 Snoring 85352989 Completed 01/25/2017 Omayra deluna, [facility] 7 14:58:59 Thyroid nodule 566144534 Active Bela Mondragon PA-C [address], [place], [address], [facility] 6 12:28:31 Insomnia 434441502 Active Belajihan Mondragon PA-C [address], [place], [address], [facility] 6 12:28:31 Degenera tion of thoracic interver tebral disc 10969996 Active T1/T2 Belabryan Mondragon PA-C [address], [place], [address], [facility] 6 12:28:32 Degenera tion of cervical interver tebral disc 44930579 Completed 01/25/2017 Omayra deluna, [facility] 7 14:59:09 Edema 386405459 Completed 06/29/2016 LUIS FERNANDO Adams, [facility] 6 15:18:56 Rapid atrial fibrilla tion 081743768 Completed 01/27/2018 Omayra deluna, [facility] 8 11:21:10 Paroxysm al atrial fibrilla tion 592380662 Active Omayra uCriel-D yonathanorenzo null, [facility] 6 15:17:25 Panic disorder 552496556 Completed 02/02/2019 Omayra Curiel-D yonathanorenzo null, [facility] 9 15:55:48 Patent foramen ovale 727710804 Active Omayra Curiel-D yonathanorenzo null, [facility] 6 15:17:25 Pain of joint 83256770 Completed 01/25/2017 Omayra Mannvaishali-Pamela marcelinonzo null, [facility] 7 14:59:13 Anxiety 09694909 Completed 01/08/2020 Bela CHOE-C [address], [place], [address], [facility] 0 17:12:31 Urinary tract infectio us disease 26299997 Completed 200803/09/2014 RECORDED 12/07/19 09 8:54AM BY BRENDA STEINER [place], ANNOTATI ON/ADDEN DUM Belajihan MOCKC [address], [place], [address], [facility] 6 12:28:31 Urinary tract infectio us disease 31968707 Completed 200804/05/2014 RECORDED 12/07/19 09 8:54AM BY BRENDA STEINER MA, BARBARA ON/ADDEN DUM Belajihan MOCKC [address], [place], [address], [facility] 6 12:28:32 Lumbar sprain 536993126 Completed 200903/09/2014 RECORDED 11/12/19 10 9:28AM BY CHINTAN SWEENEYATI ON/ADDEN DUM Bela Giancarlo CHOE-C [address], [place], [address], [facility] 6 12:28:32 Malaise and fatigue 693942121 Completed 200903/09/2014 IMPRESSI ON: LONG TALK RE WEIGHT, ADDICTIV E EATING BEHAVIOR S, WILL OCNTINUE COUNSELI NG AND TRY TO INCREASE EXERCISE . SEES DR MORALES TOO. DOES NOT FEEL SHE NEEDS MEDS FOR DEPRESSI ON, FEELS WELL MOSTLY.; RECORDED 11/12/19 10 9:28AM BY BARBARA SWEENEY ON/ADDEN DUM Bela Mondragon PA-C [address], [place], [address], [facility] 6 12:28:32 Synoviti s/tenosy novitis - hand 837632833 Completed 200903/09/2014 IMPRESSI ON: POSSIBLE CARPAL TUNNEL SYNDROME ; RECORDED 11/12/19 10 9:28AM BY BARBARA SWEENEY ON/ADDEN DUM Bela Mondragon PA-C [address], [place], [address], [facility] 6 12:28:32 Joint pain in ankle and foot Completed 200903/09/2014 IMPRESSI ON: FXT FIBULA AND OTHER IN 01/01, STILL WITH AIN EXPECTED , TX WITH ULTRAM SINCE NO CONTRAIN DICATION S AND USE MOTRIN 800MG TID WITH FOOD; RECORDED 11/12/19 10 9:27AM BY BARBARA SWEENEY ON/ADDEN DUM Bela Mondragon PA-C [address], [place], [address], [facility] 6 12:28:32 Pain in thoracic spine 436989505 Completed 200903/09/2014 IMPRESSI ON: MUSCULAR , STRETCH; RECORDED 11/12/19 10 9:27AM BY BARBARA SWEENEY ON/ADDEN DUM Bela Giancarlo PA-C [address], [place], [address], [facility] 6 12:28:32 Lumbar sprain 329801651 Completed 200904/05/2014 RECORDED 11/12/19 10 9:28AM BY BARBARA SWEENEY ON/ADDEN DUM Bela [employer] [address], [place], [address], [facility] 6 12:28:32 Malaise and fatigue 620735201 Completed 200904/05/2014 IMPRESSI ON: LONG TALK RE WEIGHT, ADDICTIV E EATING BEHAVIOR S, WILL OCNTINUE COUNSELI NG AND TRY TO INCREASE EXERCISE . SEES DR MORALES TOO. DOES NOT FEEL SHE NEEDS MEDS FOR DEPRESSI ON, FEELS WELL MOSTLY.; RECORDED 11/12/19 10 9:28AM BY BARBARA SWEENEY ON/ADDEN DUM Bela MondragonCDC SoftwareC [address] [facility] [address], [place], [address], [facility] 6 12:28:32 Synoviti s/tenosy novitis - hand 464265693 Completed 200904/05/2014 IMPRESSI ON: POSSIBLE CARPAL TUNNEL SYNDROME ; RECORDED 11/12/19 10 9:28AM BY BARBARA SWEENEY ON/ADDEN DUM Bela [employer] [address] [facility] [address], [place], [address], [facility] 6 12:28:32 Joint pain in ankle and foot Completed 200904/05/2014 IMPRESSI ON: FXT FIBULA AND OTHER IN 01/01, STILL WITH AIN EXPECTED , TX WITH ULTRAM SINCE NO CONTRAIN DICATION S AND USE MOTRIN 800MG TID WITH FOOD; RECORDED 11/12/19 10 9:27AM BY BARBARA SWEENEY ON/ADDEN DUM Bela [employer] [address], [place], [address], [facility] 6 12:28:32 Pain in thoracic spine 722286431 Completed 200904/05/2014 IMPRESSI ON: MUSCULAR , STRETCH; RECORDED 11/12/19 10 9:27AM BY BARBARA SWEENEY ON/ADDEN DUM Bela Giancarlo CHOE-C [address], [place], [address], [facility] 6 12:28:32 Inflamma tory disorder of extremit y Completed 201103/09/2014 IMPRESSI ON: REVIEWED XRAY WITH ALPHONSE JOHNSON EXAM CONSISTE NT WITH ACHILLES TENDONIT IS, AND SWELLING NO MASS FELT; RECORDED 03/25/20 12 9:59AM BY DUNIA SILVER MA, BARBARA ON/ADDEN DUM Bela Giancarlo CHOE-C [address], [place], [address], [facility] 6 12:28:32 Acute bronchit is 76592317 Completed 201103/09/2014 RECORDED 03/25/20 12 9:59AM BY DUNIA SILVER MA, BARBARA ON/ADDEN DUM Bela Giancarlo MOCK[employer] [address], [place], [address], [facility] 6 12:28:31 Cough 53967343 Completed 201103/09/2014 RECORDED 03/25/20 12 9:58AM BY DUNIA SILVER MA, ANNOTATI ON/ADDEN DUM Brenda Garry green [place] [facility], [facility] 6 15:19:12 Degenera tion of interver tebral disc Completed 201103/09/2014 RECORDED 03/25/20 12 9:59AM BY DUNIA SILVER MA, ANNOTLUCIA ON/ADDEN DUM Bela Giancarlo MOCKC [address], [place], [address], [facility] 6 12:28:32 [place] nh 071226776 Completed 201103/09/2014 RECORDED 03/25/20 12 9:59AM BY DUNIA SILVER MA, BARBARA ON/ADDEN DUM Bela Mondragon PA-C [address], [place], [address], [facility] 6 12:28:31 Otalgia 36114783 Completed 201103/09/2014 RECORDED 03/25/20 12 9:59AM BY DUNIA SILVER MA, ANNOTATI ON/ADDEN DUM Bela Mondragon PA-C [address], [place], [address], [facility] 6 12:28:31 Pyelonep hritis 62784453 Completed 201103/09/2014 IMPRESSI ON: SEE ABOVE, PT TO FINISH BACTRIM TO ER IF CANNOT TOLERATE PO WITH VOMITING OR FEELS DIZZY.., PT WILL CALL AND CHECK WITH BILLIARD TABLE MECHANIC TOMORROW ABOUT MAKING SURE SENSITIV ITIES MATCH BACTRIM, FLUIDS REST; RECORDED 03/25/20 12 9:59AM BY DUNIA SILVER MA, BARBARA ON/ADDEN DUM Bela Mondragon PA-C [address], [place], [address], [facility] 6 12:28:31 Pain in limb 85885831 Completed 201103/09/2014 IMPRESSI ON: PT TO SET UP APPT; RECORDED 03/25/20 12 9:59AM BY DUNIA SILVER MA, ANNOTATI ON/ADDEN DUM Bela Giancarlo CHOE-C [address], [place], [address], [facility] 6 12:28:32 Shoulder joint pain 852394619 Completed 201103/09/2014 IMPRESSI ON: SOUNDS LIKE BURSISIT PT TO SEE [facility]; RECORDED 03/25/20 12 9:59AM BY DUNIA SILVER MA, ANNOTLUCIA ON/ADDEN DUM Bela Giancarlo PA-C [address], [place], [address], [facility] 6 12:28:32 Chronic sinusiti s 32367820 Completed 201103/09/2014 RECORDED 03/25/20 12 9:59AM BY DUNIA SILVER MA, ANNOTATI ON/ADDEN DUM Belabryan MOCKC [address], [place], [address], [facility] 6 12:28:31 Wheezing 43191522 Completed 201103/09/2014 RECORDED 03/25/20 12 9:59AM BY DUNIA SILVER MA, ANNOTATI ON/ADDEN DUM Belajihan MOCKC [address], [place], [address], [facility] 6 12:28:32 Inflamma tory disorder of extremit y Completed 201104/05/2014 IMPRESSI ON: REVIEWED XRAY WITH ALPHONSE JOHNSON EXAM CONSISTE NT WITH ACHILLES TENDONIT IS, AND SWELLING NO MASS FELT; RECORDED 03/25/20 12 9:59AM BY DUNIA SILVER MA, ANNOTLUCIA ON/ADDEN DUM Belabryan MOCKC [address], [place], [address], [facility] 6 12:28:32 Acute bronchit is 19552354 Completed 201104/05/2014 RECORDED 03/25/20 12 9:59AM BY DUNIA SILVER MA, ANNOTLUCIA ON/ADDEN DUM Belajihan Mondragon PA-C [address], [place], [address], [facility] 6 12:28:31 Cough 28784327 Completed 201104/05/2014 RECORDED 03/25/20 12 9:58AM BY DUNIA SILVER MA, ANNOTATI ON/ADDEN DUM Brenda green [place] null, [facility] 6 15:19:12 Degenera tion of interver tebral disc Completed 201104/05/2014 RECORDED 03/25/20 12 9:59AM BY DUNIA SILVER MA, ANNOTLUCIA ON/ADDEN DUM Bela Giancarlo PA-C [address], [place], [address], [facility] 6 12:28:32 Lymphedeunice nevarez [id number] Completed 201104/05/2014 RECORDED 03/25/20 12 9:59AM BY DUNIA SILVER MA, ANNOTATI ON/ADDEN DUM Bela Giancarlo PA-C [address], [place], [address], [facility] 6 12:28:31 Otalgia 47370938 Completed 201104/05/2014 RECORDED 03/25/20 12 9:59AM BY DUNIA SILVER MA, ANNOTLUCIA ON/ADDEN DUM Bela Giancarlo PA-C [address], [place], [address], [facility] 6 12:28:31 Knee pain Completed 201104/05/2014 RECORDED 03/25/20 12 9:59AM BY DUNIA SILVER MA, ANNOTATI ON/ADDEN DUM Omayra Agnes garrett [facility] 9 15:55:45 Pyelonep hritis 88827371 Completed 201104/05/2014 IMPRESSI ON: SEE ABOVE, PT TO FINISH BACTRIM TO ER IF CANNOT TOLERATE PO WITH VOMITING OR FEELS DIZZY.., PT WILL CALL AND CHECK WITH BILLIARD TABLE MECHANIC TOMORROW ABOUT MAKING SURE SENSITIV ITIES MATCH BACTRIM, FLUIDS REST; RECORDED 03/25/20 12 9:59AM BY DUNIA SILVER MA, ANNOTATI ON/ADDEN DUM Bela Giancarlo PA-C [address], [place], [address], [facility] 6 12:28:31 Pain in limb 34122947 Completed 201104/05/2014 IMPRESSI ON: PT TO SET UP APPT; RECORDED 03/25/20 12 9:59AM BY DUNIA SILVER MA, BARBARA ON/ADDEN DUM Bela Mondragon PA-C [address], [place], [address], [facility] 6 12:28:32 Shoulder joint pain 803353749 Completed 201104/05/2014 IMPRESSI ON: SOUNDS LIKE BURSISIT PT TO SEE [facility]; RECORDED 03/25/20 12 9:59AM BY DUNIA SILVER MA, BARBARA ON/ADDEN DUM Bela Mondragon PA-C [address] [facility] [address], [place], [address], [facility] 6 12:28:32 Chronic sinusiti s 32875875 Completed 201104/05/2014 RECORDED 03/25/20 12 9:59AM BY DUNIA SILVER MA, BARBARA ON/ADDEN DUM Bela Mondragon PA-C [address] [facility] [address], [place], [address], [facility] 6 12:28:31 Wheezing 43659790 Completed 201104/05/2014 RECORDED 03/25/20 12 9:59AM BY DUNIA SILVER MA, BARBARA ON/ADDEN DUM Bela Mondragon PA-C [address] [facility] [address], [place], [address], [facility] 6 12:28:32 Edema 679418030 Completed 201103/09/2014 IMPRESSI ON: BILATERA L, LUNGS CLEAR, C/W DEPENDEN T EDEMA, HAS TAKEN HCTZ IN THE PAST WITH IMPROVEM ENT, ALSO REVIEWED DIET/LEG ELEVATIO N/WEIGHT LOSS/COM PRESSION STOCKING S; RECORDED 06/12/20 12 9:04AM BY BARBARA ARTIS ON/ADDEN DUM Brenda Barbara[facility]M attos, [place] [facility] 6 15:18:56 Lipoma of skin and subcutan eous tissue (excludi ng face) 025530490 Completed 201103/09/2014 IMPRESSI ON: BACK; RECORDED 06/12/20 12 9:04AM BY BARBARA ARTIS ON/ADDEN DUM Bela CHOE-C [address], [place], [address], [facility] 6 12:28:31 Skin sensatio n disturba are 70717876 Completed 201103/09/2014 IMPRESSI ON: AT SITE OF PREVIOUS CONTUSIO N FROM ABOUT A MONTH AGO, WITHOUT PAIN OR WITHOUT SIGNS OF CELLULIT IS, FOR NOW WILL MONITOR; RECORDED 06/12/20 12 9:03AM BY BARBARA ARTIS ON/ADDEN DUM Bela CHOE-C [address], [place], [address], [facility] 6 12:28:32 Plantar fascial fibromat osis 65674416 Completed 201103/09/2014 RECORDED 06/12/20 12 9:04AM BY BARBARA ARTIS ON/ADDEN DUM Bela CHOE-C [address] [facility] [address], [place], [address], [facility] 6 12:28:32 Influenz a vaccine needed [id number] 06 Completed 201103/09/2014 RECORDED 06/12/20 12 9:13AM BY GRISELDA SILVEIRA, OFFICE VISIT Bela CHOE-Man [address] [facility] [address], [place], [address], [facility] 6 12:28:32 Edema 288607006 Completed 201104/05/2014 IMPRESSI ON: BILATERA L, LUNGS CLEAR, C/W DEPENDEN T EDEMA, HAS TAKEN HCTZ IN THE PAST WITH IMPROVEM ENT, ALSO REVIEWED DIET/LEG ELEVATIO N/WEIGHT LOSS/COM PRESSION STOCKING S; RECORDED 06/12/20 12 9:04AM BY BARBARA ARTIS ON/ADDEN DUM Brenda green [place] [facility] 6 15:18:56 Lipoma of skin and subcutan eous tissue (excludi ng face) 776746577 Completed 201104/05/2014 IMPRESSI ON: BACK; RECORDED 06/12/20 12 9:04AM BY BARBARA ARTIS ON/ADDEN DUM Bela CHOE-C [address], [place], [address], [facility] 6 12:28:31 Skin sensatio n disturba are 80227225 Completed 201104/05/2014 IMPRESSI ON: AT SITE OF PREVIOUS CONTUSIO N FROM ABOUT A MONTH AGO, WITHOUT PAIN OR WITHOUT SIGNS OF CELLULIT IS, FOR NOW WILL MONITOR; RECORDED 06/12/20 12 9:03AM BY BARBARA ARTIS ON/ADDEN DUM Bela Velasquezden ДМИТРИЙ-C [address], [place], [address], [facility] 6 12:28:32 Plantar fascial fibromat osis 03996799 Completed 201104/05/2014 RECORDED 06/12/20 12 9:04AM BY BARBARA ARTIS ON/ADDEN DUM Bela CHOE-C [address], [place], [address], [facility] 6 12:28:32 Influenz a vaccine needed [id number] 06 Completed 201104/05/2014 RECORDED 06/12/20 12 9:13AM BY GRISELDA SILVEIRA, OFFICE VISIT Bela CHOE-C [address], [place], [address], [facility] 6 12:28:32 Administ ration of measles and mumps and rubella vaccine Completed 201103/09/2014 RESOLVED DATE: 06/13/20 12; IMPRESSI ON: NEG MUMPS TITER, NEEDS REVACCIN ATION; RECORDED 06/13/20 12 12:55PM BY OMAYRA Saleem MD, OFFICE VISIT [facility] Mondragon [facility] [address] [facility] [address], [place], [address], [facility] 6 12:28:32 Administ ration of measles and mumps and rubella vaccine Completed 201104/05/2014 RESOLVED DATE: 06/13/20 12; IMPRESSI ON: NEG MUMPS TITER, NEEDS REVACCIN ATION; RECORDED 06/13/20 12 12:55PM BY OMAYRA Saleem MD, OFFICE VISIT [facility] [address] [facility] [address], [place], [address], [facility] 6 12:28:32 Adult health examinat ion Completed 201103/09/2014 IMPRESSI ON: PAP IS UTD, PT TO START EXERCISI NG; RECORDED 07/08/20 12 1:24PM BY BARBARA GUIDRY ON/ADDEN DUM Merged with [facility] [address] [facility] [address], [place], [address], [facility] 6 12:28:32 Nausea [id number] Completed 201103/09/2014 IMPRESSI ON: RULE OUT PREGNANC Y; RECORDED 07/08/20 12 1:24PM BY BARBARA GUIDRY ON/ADDEN DUM Merged with [facility] [address] [facility] [address] [place] [place], [address], [facility] 6 12:28:32 Inflamma tion of sacroili ac joint [id number] Completed 201103/09/2014 IMPRESSI ON: RIGHT SIDED PAIN, CHANGE TO IBUPROFE N WITH FOOD AND TYLENOL WITH CODEINE AT NIGHT. PE 05/[address] UP PT HAS PAPERWOR K; RECORDED 07/08/20 12 1:24PM BY BARBARA GUIDRY ON/ADDEN DUM Bela Mondragon [place]-C [address], [place], [address], [facility] 6 12:28:32 Administ ration of diphther ia and tetanus vaccine Completed 201103/09/2014 RECORDED 07/08/20 12 1:24PM BY BARBARA GUIDRY ON/ADDEN DUM Bela Mondragon NY-C [address], [place], [address], [facility] 6 12:28:32 Nausea [id number] Completed 201104/05/2014 IMPRESSI ON: RULE OUT PREGNANC Y; RECORDED 07/08/20 12 1:24PM BY BARBARA GUIDRY ON/ADDEN DUM Bela Mondragon [place]-C [address], [place], [address], [facility] 6 12:28:32 Inflamma tion of sacroili ac joint 45516054 Completed 201104/05/2014 IMPRESSI ON: RIGHT SIDED PAIN, CHANGE TO IBUPROFE N WITH FOOD AND TYLENOL WITH CODEINE AT NIGHT. PE 05/[address] UP PT HAS PAPERSalimaOR K; RECORDED 07/08/20 12 1:24PM BY BARBARA GUIDRY ON/ADDEN DUM Bela Mondragon [place]-C [address], [place], [address], [facility] 6 12:28:32 Administ ration of diphther ia and tetanus vaccine Completed 201104/05/2014 RECORDED 07/08/20 12 1:24PM BY BARBARA GUIDRY ON/ADDEN DUM Bela Mondragon PA-C [address], [place], [address], [facility] 6 12:28:32 Dizzines s and giddines s [id number] Completed 201203/09/2014 IMPRESSI ON: NORMAL EXAM; RECORDED 09/01/19 13 1:16PM BY CHERIE HERRERA MA, ANNOTATI ON/ADDEN DUM Bela Mondragon PA-C [address], [place], [address], [facility] 6 12:28:32 Dizzines s and giddines s [id number] Completed 201204/05/2014 IMPRESSI ON: NORMAL EXAM; RECORDED 09/01/19 13 1:16PM BY CHERIE HERRERA MA, CHINTANATI ON/ADDEN DUM Bela Anystream-C [address], [place], [address], [facility] 6 12:28:32 Low back pain 450306660 Completed 201203/09/2014 RECORDED 09/05/19 13 10:23AM BY CHERIE HERRERA MA, CHINTANATI ON/ADDEN DUM Bela Anystream-C [address], [place], [address], [facility] 6 12:28:32 Low back pain 551143632 Completed 201204/05/2014 IMPRESSI ON: X 1 DAY, OCCURED WHILE BENDING OVER; RECORDED 09/05/19 13 10:23AM BY CHERIE HERRERA MA, CHINTANATI ON/ADDEN DUM Bela Novel SuperTVC [address], [place], [address], [facility] 6 12:28:32 Acute pharyngi tis 501177584 Completed 201203/09/2014 IMPRESSI ON: + RAPID STREP, POSSIBLE RIGHT EARLY PERITONS ILLAR ABSCESS, TX WITH ABX/FLUI DS/NSAID S, IF WORSENIN G PAIN OR DIFFICUL TY SWALLOWI NG CALL OFFICE FOR ENT APPT.; RECORDED 12/16/19 13 10:04AM BY BARBARA ARTIS ON/ADDEN DUM Brenda green MA null, [facility] 6 15:19:04 Acute pharyngi tis 464168228 Completed 201204/05/2014 IMPRESSI ON: + RAPID STREP, POSSIBLE RIGHT EARLY PERITONS ILLAR ABSCESS, TX WITH ABX/FLUI DS/NSAID S, IF WORSENIN G PAIN OR DIFFICUL TY SWALLOWI NG CALL OFFICE FOR ENT APPT.; RECORDED 12/16/19 13 10:04AM BY BARBARA ARTIS ON/ADDEN DUM Brenda green [place] null, [facility] 6 15:19:04 Knee pain Completed 201203/09/2014 IMPRESSI ON: PT IN A MOMIN TO LEAVE SO DID NOT EXAMINE KNEES. WILL START WITH X-RAY SINCE MAY HAVE DJD. F/U WITH PCP FOR FURTHER ASSESSME NT. 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 GETS INTERTRI GO FUNGAL INFECTIO NS DUE TO THIS; RECORDED 05/09/20 13 10:00AM BY BARBARA GUIDRY ON/ADDEN DUM Bela MOCKC [address] [facility] [address], [place], [address], [facility] 6 12:28:32 Immuniza tion refused Completed 201204/05/2014 RECORDED 05/09/20 13 10:00AM BY BARBARA GUIDRY ON/ADDEN DUM Bela Mondragon PA-C [address], [place], [address], [facility] 6 12:28:32 Hypertro phic conditio n of skin 65083599 Completed 201204/05/2014 IMPRESSI ON: AFTER WEIGHT LOSS. GETS INTERTRI GO FUNGAL INFECTIO NS DUE TO THIS; RECORDED 05/09/20 13 10:00AM BY BARBARA GUIDRY ON/ADDEN DUM Bela Anystream-C [address], [place], [address], [facility] 6 12:28:32 Tobacco user [id number] Completed 201305/29/2014 RECORDED 01/17/20 14 10:42AM BY OMAYRA Saleem MD, OFFICE VISIT Bela Anystream-C [address], [place], [address], [facility] 6 12:28:31 Adult health examinat ion Completed 201304/05/2014 IMPRESSI ON: PAP IS OVERDUE, PT WILL ARRANGE THIS, PT HAS AN IUD IN PLACE. PT WILL WORK ON DIET AND EXERCISE .; RECORDED 01/17/20 14 10:22AM BY BARBARA ARTIS ON/ADDEN DUM Bela Anystream-C [address], [place], [address], [facility] 6 12:28:32 Asthma 232333261 Completed 201701/08/2020 Bela Mondragon PA-C [address], [place], [address], [facility] 0 17:12:58 Ex-smoke r 4205558 Active 2017 Brenda green [place] null, [facility] 8 15:42:54 Small bowel obstruct ion 349588688 Active 2018 Brenda green [place] null, [facility] 9 09:46:54 Generali zed anxiety disorder 10087133 Active 2019 Bela Mondragon PA-C [address], [place], [address], [facility] 0 17:12:32 Mild intermit tent asthma 595424483 Active 2019 Bela Mondragon PA-C [address], [place], [address], [facility] 0 17:13:08 [facility] 649502490 Active 2019 Bela Mondragon PA-C [address], [place], [address], [facility] 0 17:13:31 Obstruct jefry sleep apnea syndrome 56857182 Active 2022 Cabrera Mondragon PA-C [address], [place], [address], [facility] 3 17:09:42 Pain of left hip joint 51802679828 9100 Active 2022 Cabrera Mondragon PA-C [address], [place], [address], [facility] 3 17:10:00 Left lateral elbow tendinop athy 28093003412 9100 Active 2022 Cabrera Mondragon PA-C [address], [place], [address], [facility] 3 13:33:40 Problem Notes None recorded. Procedures Surgical History Date Name Laterality Status Provider Name and Address Organization Details Recorded Time 05/21/20 23 Endoscopic us exam esoph completed Leslie Alba [facility] 05/21/2023 11:10:55 04/20/20 23 laparoscopic appendectomy completed Leslie Alba [facility] 04/22/2023 10:12:44 04/20/20 23 Appendectomy completed Avelina Encinas RN [facility] 04/30/2023 10:29:16 04/19/20 23 Appendectomy completed Avelina Encinas RN [facility] 04/25/2023 09:55:00 11/24/19 22 cardioversion completed Avelina Encinas RN [facility] 11/27/2021 13:27:24 01/24/20 17 extraction of wisdom tooth completed Brenda zurita MA [facility] 01/12/2019 09:34:35 Mammogram screening completed Brenda zurita MA [facility] 06/29/2016 15:20:32 Colonoscopy completed Brenda zurita MA [facility] 06/29/2016 15:20:36 Imaging Results None recorded. Procedure [...] 01/08/2023 171.45 cm Mary Becerra MA [facility] 01/08/2023 15:48:36 Date Recorded Body height Body mass index (BMI) Body weight Heart rate Oxygen saturation Body temperature Systolic And Diastolic Provider Name and Address Organization Details Last Updated DateTime 3 171.45 cm 50.2 kg/m2 306777. 52 g 60 /min 97 % 98.3 [degF] 138/87 mm[Hg] Rupali Pedro [facility] [place] 3 15:56:22 Date Recorded Body height Body mass index (BMI) Body weight Heart rate Oxygen saturation Body temperature Systolic And Diastolic Provider Name and Address Organization Details Last Updated DateTime 3 171.45 cm 49.2 kg/m2 422355. 97 g 94 /min 96 % 97.8 [degF] 113/80 mm[Hg] Isela Metz [facility] 3 13:21:43 Date Recorded Body height Body mass index (BMI) Body weight Heart rate Oxygen saturation Body temperature Systolic And Diastolic Provider Name and Address Organization Details Last Updated DateTime 3 171.45 cm 48.1 kg/m2 670910. 82 g 68 /min 96 % 98.3 [degF] 160/98 mm[Hg] Isela Metz MA [facility] 3 14:57:00 Social History Question Answer Notes LastModified by Organizat ion Details LastModified Time Tobacco Smoking Status Former Smoker Cherie Garridoharlan deluna [facility] 05/18/2014 10:29:49 Do You Have An Advance Directive? No [email or web address] Information not available 06/20/2022 Is Blood Transfusion Acceptable In An Emergency? Yes [email or web address] Information not available 01/20/2016 What Is Your Level Of Caffeine Consumption? Occasional Information not available 12/29/2014 How Much Tobacco Do You Chew? None Information not available 06/29/2016 In The 14 Days Before Symptom Onset, Have You Had Close Contact With A Laboratory-confi rmed COVID-19 While That Case Was Ill? No [email or web address] Information not available 06/20/2022 In The 14 Days Before Symptom Onset, Have You Had Close Contact With A Person Who Is Under Investigation For COVID-19 While That Person Was Ill? No [email or web address] Information not available 06/20/2022 Have You Been To An Area Known To Be High Risk For COVID-19? No [email or web address] Information not available 06/20/2022 What Type Of Diet Are You Following? REGULAR [email or web address] Information not available 12/29/2014 Which Illicit Or Recreational Drugs Have You Used? None Information not available 06/29/2016 Live Alone Or With Others? With Others (Juan Carlos) And 2 Daughters [email or web address] Information not available 06/20/2022 Do You Take Precautions To Prevent Distracted Driving? Yes [email or web address] Information not available 01/20/2016 How Often Do You Need To Have Someone Help You When You Read Instructions, Pamphlets, Or Other Written Material From Your Doctor Or Pharmacy? Sometimes [email or web address] Information not available 01/20/2016 Have You Served [...] Of Your Most Recent Tobacco Screening? 06/20/2022 [email or web address] Information not available 06/20/2022 How Many Children Do You Have? 2 Adriana And Renee Information not available 03/27/2018 What Is Your Current Pack Years? 10packyears [email or web address] Information not available 06/20/2022 Do You Use Protection During Sex? No Information not available 06/29/2016 Seat Belts Used Routinely Yes [email or web address] Information not available 06/20/2022 Are You Sexually Active? Yes Information not available 06/29/2016 Smoke Alarm In Home Yes Information not available 06/20/2022 Are You Passively Exposed To Smoke? No Information not available 06/29/2016 General Stress Level Medium [email or web address] Information not available 06/20/2022 Do You Use Sunscreen Routinely? Yes [email or web address] Information not available 12/29/2014 How Many Years Have You Smoked Tobacco? 10 [email or web address] Information not available 12/29/2014 Sex: Unknown Functional Status Question Answer Note LastModified by Organizat ion Details LastModified Time Do you or have you ever used any other forms of tobacco or nicotine? No [email or web address] Information not available 06/20/2022 What is your level of alcohol consumption? Occasional [email or web address] Information not available 12/29/2014 Are you currently employed? Yes Information not available 12/29/2014 Are you able to walk independently without assistance or assistive devices? YESWOREST [email or web address] Information not available 06/20/2022 Are you able [...] Father Harmful pattern of use of alcohol [email or web address] Not available 2019 15:29:15 Notes:Pt is adopted [...] mL dose 02/28/2021 completed [place] Artis [facility] 12/13/2021 11:25:33 COVID-19, mRNA, LNP-S, PF, 30 mcg/0.3 mL dose 03/21/2021 completed [place] Artis [facility] 12/13/2021 11:25:33 MMR 10/21/2002 completed Not Available [facility] 03/09/2014 14:00:38 Tdap 06/12/2012 completed Not Available [facility] 03/09/2014 14:00:38 MMR 06/12/2012 completed Not Available [facility] 03/09/2014 14:00:38 Past Encounters Encounter ID Performer Location Encounter Start Date Encounter Closed Date Diagnosis/Indication Diagnosis SNOMED-CT Code Diagnosis ICD10 Code Diagnosis IMO Codes Diagnosis Note [id number] auto[facility]Comm erce [address] [facility] [address] [place] [address] 11/13/2006 00:00:00 [id number] [place] [address] 12/23/2006 00:00:00 [id number] [address] [address] [place] [address] 07/28/2007 00:00:00 [id number] autoEComm erce [address] [facility] [address] [place] [address] 12/06/2008 00:00:00 [id number] autoEComm erce [address] [place] [address] 03/25/2009 00:00:00 [id number] autoEComm erce [address] [place] [address] 04/28/2009 00:00:00 [id number] autoEComm erce [address] [facility],[address] [place] [address] 11/11/2009 00:00:00 [id number] autoEComm erce [address] [facility],[address] [place] [address] 12/20/2009 00:00:00 [id number] autoEComm erce [address] [facility],[address] [place] [address] 02/17/2010 00:00:00 [id number] autoEComm erce [address] [facility],[address] [place] [address] 07/25/2010 00:00:00 [id number] autoEComm erce [address] [facility],[address] [place] [address] 09/13/2010 00:00:00 [id number] autoEComm erce [address] [facility],[address] [place] [address] 11/11/2010 00:00:00 [id number] autoEComm erce [address] [facility] [address] [facility] [address] [place] [address] 02/01/2011 00:00:00 [id number] autoEComm erce [address] [facility],[address] [place] [address] 02/05/2011 00:00:00 [id number] autoEComm erce [address] [place] [address] 02/06/2011 00:00:00 [id number] autoEComm erce [address] [place] [address] 02/15/2011 00:00:00 [id number] autoEComm erce [address] [facility] [address] [place] [address] 03/08/2011 00:00:00 [id number] autoEComm erce [address] [place] [address] 11/26/2011 00:00:00 [id number] autoEComm erce [address] [place] [address] 11/30/2011 00:00:00 [id number] autoEComm erce [address] [facility],[address] [place] [address] 01/09/2012 00:00:00 [id number] autoEComm erce [address] [facility],[address] [place] [address] 03/25/2012 00:00:00 [id number] autoEComm erce [address] [facility] [address] [place] [address] 06/12/2012 00:00:00 [id number] autoEComm erce [address] [facility],[address] [place] [address] 07/08/2012 00:00:00 [id number] autoEComm erce [address] [facility],[address] [place] [address] 09/01/2012 00:00:00 [id number] autoEComm erce [address] [facility] [address] [place] [address] 09/05/2012 00:00:00 [id number] autoEComm erce [address] [facility] [address] [place] [address] 10/16/2012 00:00:00 [id number] autoEComm erce [address] [place] [address] 12/15/2012 00:00:00 [id number] autoEComm erce [address] [facility],[address] [place], [place] [address] 05/09/2013 00:00:00 [id number] autoEComm erce [address] [facility],[address] [place], [place] [address] 07/27/2013 00:00:00 [id number] autoEComm erce [address] [facility],[address] [place], [place] [address] 12/25/2013 00:00:00 [id number] autoEComm erce [address] [facility],[address] [place], [place] [address] 01/16/2014 00:00:00 [id number] SARAH Agrawal Main Office [address] [facility] [address] [place] [address] 05/18/2014 10:10:59 05/18/2014 10:49:51 Dysuria 11703215 UA c/w UTI, will tx and send culture Acute pharyngitis 392100370 rapid strep neg. [id number] Juan Diego Cali MD Main Office [address] [facility] [address] [place] [address] 05/29/2014 11:51:21 05/29/2014 12:23:45 Cough 80784282 Sounds inflammato ry in nature likely post viral infection vs allergy related. No current evidence for bacterial process. Will address inflammati on/broncho constricti on while waiting to see if allergy rx helps. Would need re-eval and consider of abx/CXR if persistent or sputum becomes purulent. [id number] SARAH Velasco Main Office [address] [facility] [address] [place] [address] 06/08/2014 13:52:54 06/08/2014 14:36:30 Palpitations 90323283 likely the endocrine system resetting itself after being on prednisone . reassuranc e. call if worsening [id number] SARAH Agrawal Main Office [address] [facility] [address] [place] [address] 09/20/2014 11:26:27 09/20/2014 11:45:06 Backache 935477028 Continue cyclobenza tete and finish course of prednisone , just started 2d ago, if back pain persists/w malaika will refer to PT. [id number] William Johnson [facility] Main Office [address] [facility] [address] [place] [address] 11/08/2014 09:40:15 11/08/2014 10:41:46 Acute pharyngitis 995016265 Cough 95699461 with fever and body aches on day 6, suspect bacterial process such as pneumonia. will treat empiricall y. f/u if worsening [id number] William Arteagaандрей [facility] Main Office [address] [place], [place] [address] 11/17/2014 16:24:25 11/17/2014 17:32:05 Palpitations 44155752 Atrial fibrillation 96640955 new onset with RVR. not clear if pain in her upper back is related to the afib. to ER for lowering HR and further assessment for new onset afib Neck pain 67169120 with radiating sxs. likely a cervical radiculopa thy. but it is possible that it is something cardiac related to the afib. will be further assessed in the ER. [id number] [facility] Main Office [address] [facility] [address] [place], [place] [address] 11/23/2014 13:19:45 11/23/2014 14:23:50 Atrial fibrillation 17934591 rate wel l controlled . she will f/u with cardio as planned. Spinal guerrero nosis in cervical region 18774929 concerning that she has a positive babinski [...] before next visit in 2 wks. Snoring 21638009 Thyroid nodule 719273210 Insomnia 172879383 see abo ve discussion about gabapentin [id number] Omayra rush MD Main Office [address] [facility] [address] [place] [address] 12/13/2014 14:13:19 12/13/2014 14:49:18 Atrial fibrillation 37555075 on meds below and doing well continue followup with cardiology Degenerati on of cervical intervertebral disc 05469168 trial of tramadol Thyroid nodule 005195174 p t will get thyroid nodule looked at, most likely will get biopsy Edema 729132055 [id number] Omayra rush MD Main Office [address] [place] [address] [place] [address] 12/29/2014 09:06:58 12/29/2014 10:00:23 Adult health examination 516940342 utd on screening Degenerati on of cervical intervertebral disc 41940764 pt is on tramadol and it helps, still having pain, pt is waiting for PT apt, will have my staff call and check on it Atrial fibrillation 02196835 on meds below and doing well continue followup with cardiology , only on FS asa and cartia, continue Thyroid nodule 470422812 n eedle biopsy later this month, will hold asa for 5 days prior and then will ask thyroid surgeon when she can restart, keep on all other rmeds Edema 173234589 [id number] SARAH Love Main Office [address] [place] [address] [place] [address] 08/03/2015 11:18:40 08/03/2015 11:44:57 Cough 66553828 R05 Symptomati c treatment- lots of fluids, rest, tea with honey, OTC cough drops/ cough med as needed, humidifier as needed. Tylenol or ibuprofen for fever/ pain. Return for worsening/ concerns. [id number] Bela Mondragon PA-C Main Office [address] [address] [place] [address] 12/19/2015 09:57:59 12/19/2015 11:39:30 Palpitations 93168274 R00.2 Rapid atri al fibrillation 244720696 I48.91 Pt. is referred by ambulance to [facility] ER for management of rapid arrhythmia . PT. was maintained on O2 by nasal canula on 2L until paramedics arrived. Pt. will be seen in hospital f/u after the discharge and sleep study will be arranged for her. Note faxed to ER. [id number] Bela Mondragon PA-C Main Office [address] [facility] [address] [place] [address] 12/21/2015 10:51:33 12/21/2015 11:58:58 Paroxysmal atrial fibrillation 756143998 I48.0 Recommend to avoid alcohol. Check TSH and CBC. Schedule echocardio gram and sleep study. Consider cardiac referral. Panic disorder 100559344 F41.0 Pt. is on Tramadol for neck pain which will interact with SSRIs. Will recommend to restart counseling RIVER and use Lorazepam PRN for panic attacks. PT. will address this at f/u with PCP. Snoring 13224582 R06.83 Sleep study referral is made to do RIVER. [id number] Omayra rush MD Main Office [address] [facility] [address] [place] [address] 01/02/2016 13:10:18 01/02/2016 14:49:25 Paroxysmal atrial fibrillation 999560655 I48.0 2 documented episodes total, one in 12/09 and one a year ago. THe one in in 12/09 was after heavy drinking the night before, pt with a small PFO on Echo, will start a baby aspirin and see dR Brandt tomorrw Edema 485857620 R60.9 continue hctz Pain of joint 79148438 M 25.50 pt with diffuse joint pain, she finds she is so much more comfortabl e on tramadol 100mg bid Patent foramen ovale 204 959006 Q21.1 seen on echo, started pt on a baby aspirin today Anxiety 32195490 F41.9 will work on this and her eating issues, she feels she is addicted to food. meetin with Gretta today [id number] Omayra rush MD Main Office [address] [place] [address] 01/20/2016 14:12:02 01/20/2016 15:11:46 Adult health examination 065770615 Z00.00 utd on screening Screening for malignant neoplasm of breast 579855651 Z12.39 pt will arrange Patent foramen ovale 204 061002 Q21.1 seen on echo, started pt on a baby aspirin and cardiology has reviewed with her Paroxysmal atrial fibrillation 579771399 I48.0 2 documented episodes total, one in [...] a shorter monitor she could do Edema 432351333 R60.9 continue hctz [id number] Omayra rush MD Main Office [address] [facility] [address] [place] [address] 06/06/2016 13:54:52 06/06/2016 14:26:07 Atrial fibrillation 74756153 I48.91 regular rhythmn today, on baby aspirin, no recent episodes. one was associated with alcohol in the past Acute pharyngitis 874363 003 J02.9 neg quick strep, seems viral Cough 56827438 R05 use cough med no abx needed [id number] Lan Oliver MD Main Office [address] [address] 06/09/2016 10:25:58 06/09/2016 11:21:14 Cough variant asthma 143897046 J45.991 She was instructed to call next week if her symptoms persist. This may be a URI which has set off asthma. [id number] Bela Mondragon PA-C Main Office [address] [address] 06/11/2016 10:46:37 06/11/2016 11:26:31 Asthmatic bronchitis 461944819 J45.909 R/o pneumonia. Chest XRAy to be done. Continue Prednisone . Taper down to 40 mg for 2 days, 30 for 2 days, 20 for 2, 10 for 2. UP draft with Albuterol given in the office. Continue cough meds , rest and fluids. [id number] SARAH Love Main Office [address] [facility] [address] [place] [address] 06/29/2016 15:09:06 06/29/2016 15:58:04 Acute bacterial bronchitis [id number] J20.9 Improving though she does still have a cough, will repeat CBC to check WBC. Continue inhaler/ cough med as needed. Elevated blood-pressure reading without diagnosis of hypertension 853009746 R03.0 High BP today, patient notes her BP has been higher lately, will have her f/u in 2 weeks for recheck of BP and she will have BMP done. [id number] Bela Mondragon PA-C Main Office [address] [address] [place] [address] 07/30/2016 13:44:57 07/30/2016 14:59:36 Benign essential hypertension 4317851 I10 [id number] Bela Mondragon PA-C Main Office [address] [address] [place] [address] 10/26/2016 14:44:08 10/26/2016 15:35:24 Acute pharyngitis 984200766 J02.9 Sat water gargles and take OTC pain meds. Elevated blood-pressure reading without diagnosis of hypertension 239080648 R03.0 BP remains borderline . Pt. is on HCTZ 25 mg and is recommende d to continue. Repeat BMP. F/u with PCP in 3-4 m. Keep low sodium and low caffeine diet. [id number] Juan Diego Cali MD Main Office [address] [address] [place] [address] 10/27/2016 10:46:26 10/27/2016 11:22:38 Acute pharyngitis 955973710 J02.9 Given active abx therapy which should [...] swallow oral secretions . Exudative pharyngitis 12 0395548 J02.9 [id number] Cabrera Mondragon PA-C Main Office [address] [address] [place] [address] 10/30/2016 08:51:17 10/30/2016 09:54:13 Acute pharyngitis 172774803 J02.9 strep neg, but persists despites 10 days of amox - ? monet-tonsi lar abscess - see below Dental abscess 518476270 K04.7 s/p amox x 10 days - next f/u 3.28 for tooth extraction Peritonsillar abscess 15 889652 J36 ? caused by dental abscess? Low back pain 173232249 M54.5 Impacted cerumen 4259687 6 H61.21 mild - mod R ear [id number] Omayra rush MD Main Office [address] [facility] [address] [place] [address] 11/26/2016 08:54:30 11/26/2016 09:29:41 Amenorrhea 76153804 N91.2 neg test Gastroesop hageal reflux disease 348208140 K21.9 untx, quite symptomati c, that is what nausea is form, tx and check h pylori Nausea 530437182 R11.0 due to GERD return 6 weeks, check any discomfort after eating is resolved, if not refer to GI Body mass index 40+ - severely obese 636477434 Z68.41 Obesity 775244925 E66.9 [id number] Omayra rush MD Main Office [address] [facility] [address] [place] [address] 01/25/2017 14:31:24 01/25/2017 15:18:18 Adult health examination 459138868 Z00.00 utd on screening except mammogram, pt iwll arrange, needs to work on diet and exercise Screening for malignant neoplasm of breast 457743307 Z12.39 pt will arrange Urinary incontinence 165 047233 R32 on meds Morbid obesity 087646638 E66.01 Obesity 754601037 E66.9 Paroxysmal atrial fibrillation 488920781 I48.0 2 documented episodes total, one in [...] trigger for afib Pain in right knee 13550 87232 08489 M25.561 Sleep apnea 99628578 G47 .30 pt tested positive but has not gotten CPAP yet, needs to make a visit [id number] SARAH Love Main Office [address] [place] [address] 10/10/2017 15:31:26 10/10/2017 16:02:27 Wheezing 27296704 R06.2 Cough 88685510 R05 Symptomati c treatment- lots of fluids, rest, tea with honey, OTC cough drops/ cough med as needed, humidifier as needed. Tylenol or ibuprofen for fever/ pain. Return for worsening/ concerns. Delsym OTC. Acute bronchitis 5475846 2 J20.9 Pain in right knee 04181 01426 52069 M25.561 had been on tramadol then lost her insurance, requests refill. will fill x 1 month and she will need f/u with PCP to get re-establi shed with med. [id number] Cabrera Mondragon PA-C Main Office [address] [place] [address] 10/28/2017 15:53:21 10/28/2017 17:35:33 Cough 76602148 R05 check cxr to r/o pna -- ? d/t pnd Pain of right wrist 3169 806924 76929 M25.531 ? CTS - neg tinels/pha lens/finkl estein -- will get OT eval and rec use wrist splint hs Allergic rhinitis 390422 04 J30.9 Asthma 482249838 J45.20 [id number] Cabrera Mondragon PA-C Main Office [address] [address] 11/18/2017 13:44:44 11/18/2017 15:46:12 Cough 31846094 R05 neg cxr, less but persists - pt concerned - see below Dyspnea 208989223 R06.00 nl ekg and spirometry - offered re-assuran ce Asthma 415600394 J45.20 will check spirometry - see above - yue nl, but pt used to take advair yrs ago and states she feels like her lungs are still inflamed/h ave a lot of mucous - will give trial of ICS to see if help Paroxysmal atrial fibrillation 587682934 I48.0 no problems c this in a long time - see above Obstructiv e sleep apnea syndrome 20396219 G47.33 no get cpap machine - encouraged pt to f/u c sleep med Seasonal a llergic rhinitis 781900151 J30.2 cont singulair as dir [id number] Omayra rush MD Main Office [address] [facility] [address] [place] [address] 01/27/2018 10:50:09 01/27/2018 11:48:58 Adult health examination 142304933 Z00.00 , needs to work on diet and exercise, eats a lot of bread and pasta, pt needs ot get temptation s out of the house, pt tos et up force adjustment supervisor appt, is overdue Screening for malignant neoplasm of breast 407269963 Z12.39 pt will arrange Lymphedema of lower extremity 177919949 I89.0 better on meds Asthma 557945538 J45.90 9 pt will restart Body mass index 40+ - severely obese 063765332 E66.01 Z68.41 pt to lower carbs, hard for her to keep on the healthy eating track. [id number] Cabrera Mondragon PA-C Main Office [address] [facility] [address] [place] [address] 03/27/2018 11:24:04 03/27/2018 12:19:20 Lateral epicondylitis 639688192 M77.11 will give 2 options of TE support - she will decide which is covered better / fits better, as well as rec wrist support at hs d/t her sleeping position (R hand bent under head - full wrist flexion), and get pssp eval [id number] Cabrera Mondragon PA-C Main Office [address] [facility] [address] [facility] [place] [address] 06/11/2018 09:23:10 06/11/2018 10:12:36 Body mass index 40+ - severely obese 193638307 Z68.42 urged pt to see nutritioni in [place], and if no sig improvemen t then [...] counseling and/or coordinati on of care. Fatigue 21692770 R53.83 Anxiety 22363021 F41.9 see above re: therapist Morbid obesity 746984651 E66.01 [id number] Omayra rush MD Main Office [address] [place] [address] 07/30/2018 10:40:47 07/30/2018 11:37:06 Acute asthma 888380371 J45.901 not on any control meds, will start inhaled steroid, pre proair and singulair and return in 3 months will get spirometry then [id number] Juan Diego Cali MD Main Office [address] [place] [address] 01/12/2019 09:27:00 01/12/2019 10:40:07 Indigestion 372813085 K30 regular diet, avoid offending foods. Trial of PPI and check for recurrence of hpylori. Has followup with Dr Veena Mccarthy in a month Pain in left knee 653623 9687 90548 M25.562 PT, discuss at followup, will try physical therapy, pt has multiple joint pains for years Diarrhea 56561105 R19.7 ? IBS, try daily fiber and probiotic, followup in a month, if not better consider GI eval. Pt can try dairy eliminatio n for a week, does not have symptoms of gluten intoleranc e. [id number] Omayra rush MD Main Office [address] [address] 02/02/2019 15:28:28 02/02/2019 16:19:18 Adult health examination 809197338 Z00.00 eating better, wants to lose weight, is due for mammogram Screening for malignant neoplasm of breast 847423986 Z12.39 we will arrange due to lack of followthfo ugh Patent foramen ovale 204 899302 Q21.1 seen on echo, started pt on a baby aspirin and cardiology has reviewed with her Paroxysmal atrial fibrillation 285543825 I48.0 2 documented episodes total, one in [...] during the week. Lymphedema of lower extremity 301216306 I89.0 better on meds, continue hctz Obstructiv e sleep apnea syndrome 73845680 G47.33 pt ot see sleep medicine again, should retry cpap Body mass index 40+ - severely obese 335758780 E66.01 Z68.42 pt to lower carbs, hard for her to keep on the healthy eating track. [id number] Juan Diego Cali MD Main Office [address] [facility] [address] [facility] [address] 04/07/2019 13:19:55 04/07/2019 14:23:48 Pain in left knee 5573389509 43728 M25.562 ? PFS vs other - will [...] on of care. Gastroesop hageal reflux disease 785686838 K21.9 [id number] Omayra rush MD Main Office [address] [facility] [address] [place] [address] 12/31/2019 13:03:19 12/31/2019 14:22:13 Asthma 130847555 J45.909 pt will restart med Urge incon tinence of urine 51263066 N39.41 urology had patient on oxybutynin . will restart Lymphedema of lower extremity 319532603 I89.0 better on meds, will try chlorthali done [id number] [facility] [address] [address] [place] [address] 01/08/2020 15:07:08 01/11/2020 08:39:09 Indigestion 948173418 K30 most likely in response to starting sertraline . Pt tried taking Tums but had no relief. WE will try PPI over the week end and if still having indigestio n discomfort , call after the weekend and be seen in the office to check her EKG. Generalize d anxiety disorder 14606131 F41.1 contineu SSRI as prescribed by psych. MIght be experienci ng symptoms of indigestio n due to SSRI as well. Lymphedema of lower extremity 981328497 I89.0 continue diuretic, but pt. was advised to have labs done not later than after the week end. 133897 Lan Oliver MD [address] [address] [place] [address] 04/01/2020 07:58:50 04/01/2020 15:09:46 Abdominal pain 48248915 R10.9 She will try simethicon e. There was nothing on her history that warranted immediate attention and she was advised to call the office in the am if it persisted. [id number] Omayra rush MD [address] [address] [place] [address] 04/22/2020 06:41:45 04/24/2020 10:57:02 [id number] Omayra rush MD Main Office [address] [place] [address] [place] [address] 05/30/2020 15:06:28 05/30/2020 16:57:55 Adult health examination 472525837 Z00.00 Pt has concerns about her weight and is under stress with family and work. Social and family history reviewed. Immunizati ons reviewed, advised annual flu shot, will get at [facility] as we do not have any in stock at this time. . 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 declines medication at this time. NO SI or HI, Addiction 61472801 R46.8 1 Pt feels she has a food addiction, recommende d to go to OA or call to see if any virtual meetings. Most of the appt spent talking about food, eating and stress/anx iety related to this. She will reach out to the counselor, suggested some ideas for this. Elevated blood-pressure reading without diagnosis of hypertension 505237470 R03.0 Pt under stress today, tearful, recheck at next ov Mild inter mittent asthma 310081519 J45.20 stable at this time, uses montelukas t Morbid obesity 193104945 E66.01 Pt will look into OA program. Suggested lowering carbs, more protein, no meal skipping and tips to avoid night eating. Advised to try and me more active. Short term followup [id number] Omayra rush MD Main Office [address] [facility] [address] [place] [address] 12/28/2020 10:59:55 12/28/2020 14:58:13 Cervical radiculopathy 95043388 M54.12 Will do a trail of NSAID [...] compress.N willow exercises provided. Urinary incontinence 165 040701 R32 She was on oxybutynin 20 ER, she has a hx of small bowel obstructio n she requested a refill at that dose, given hx of small bowel obstructio n I think it might not be a bad idea for patient to discuss with urology if other options can be explored and she agreed to this. Medial epicondylitis 532 74671 M77.01 Will do trial of NSAID, Patient aware risk of GI bleed as she is also on elaquis. She was told to take with meal. If any signs of bleeding she was asked to stop and let us know. [id number] Omayra rush MD Main Office [address] [facility] [address] [place] [address] 01/09/2021 15:56:27 01/10/2021 09:57:35 Paroxysmal atrial fibrillation 023280149 I48.0 pt is followed by cardiology , remains on eliquis, flecanide and metoprolol for now. Seems to be in NSR today, no sx. Advised to consider sleep studay repeat and work on wt loss. Pt wiil consider Body mass index 40+ - severely obese 876090437 E66.01 Z68.41 Pt will decide on precision honer appt, will try cutting back, walking. Discusse OA program Generalize d anxiety disorder 72612365 F41.1 pt agrees to continue with her counselor to discuss issues especially her wt and eating compulsion . declines medication at this time. NO SI or HI, [id number] Omayra rush MD Main Office [address] [facility] [address] [place] [address] 01/25/2021 14:49:47 01/25/2021 16:14:43 Cervical radiculitis 87098261 M54.12 trial of short pred taper to decrease inflammati on with radiculopa thy. Side effects reviewed. Cervical radiculopathy 53494655 M54.12 stay on gabapentin , can use bid if not too drowsy, or can use 2 at bedtime Acute thor acic back pain 479706726 M54.6 check xay, do stretches, advised PT, pt will consider Body mass index 40+ - severely obese 741896889 E66.01 Z68.41 pt would like to see precision honer, will do a referral [id number] Omayra rush MD [facility] [address] [facility] [address] [place] [address] 02/13/2021 08:33:32 02/13/2021 14:20:43 Tendinitis of right elbow 8902980801 2266332 M67.823 continued right elbow pain, sounds like tendonitis , ice and set up appt at [facility] for cortisone injection Pain of le ft shoulder blade 041582146 M25.512 pt with muscular pain around left scapula into neck and shoulder, most likely related to muscular pain form poor posture, left sided pectoralis insertion pain on and off, does not feel like pts cardiac pain and it is positional , no need for cardiac eval. pt to set up PT, use a roller on upper back Pain of le ft shoulder joint 4273945501 8263816 M25.512 related to muscular pain from neck and back [id number] Omayra rush MD Main Office [address] [facility] [address] [place] [address] 06/23/2021 13:56:44 06/23/2021 15:13:56 Adult health examination 031947552 Z00.00 Pt has concerns about her weight and is under stress with family and work but stable at this time. Social and family history reviewed. Immunizati ons reviewed, advised annual flu shot,, will be due for Tdap next year . 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 declines medication at this time. NO SI or HI, Spent time disussing family issues around teen age daughter Paroxysmal atrial fibrillation 211736714 I48.0 pt is followed by cardiology , remains on eliquis, flecanide and metoprolol for now. Seems to be in NSR today, no sx. Advised to consider sleep study repeat and work on wt loss. Pt wiil consider sleep evaluation Mild inter mittent asthma 087071850 J45.20 stable at this time, has proair prn Morbid obesity 642605152 E66.01 Pt will look into precision honer. Suggested lowering carbs, more protein, no meal skipping and tips to avoid night eating. Advised to try and me more active. Screening for malignant neoplasm of breast 868684242 Z12.39 [id number] Omayra rush MD Main Office 36[address] [facility] [address] [place] [address] 12/13/2021 07:41:49 12/13/2021 11:53:08 [id number] Omayra rush MD [facility] [address] [place] [address] 04/08/2022 15:01:10 04/09/2022 10:56:34 Pain in right arm 983495163 M79.601 had to call into a different pharmacy, first one closed will treat for 2 days since weekend then needs in person appt, could be radicular pain, unable to tell without exam [id number] Juan Diego Cali MD Main Office 36[address] [facility] [address] [facility] [place] [address] 04/18/2022 14:48:18 04/18/2022 16:00:22 Cervical radiculitis 57792981 M54.12 will get pmr eval, and give trial of gbn -- could consider tyl 500mg 1-2 tabs up to 3x/day as well Paroxysmal atrial fibrillation 697899990 I48.0 encouraged pt to resume eliquis as per card - if too $$, then consider coumadin [id number] Omayra rush MD Main Office 36[address] [facility] [address] [place] [address] 06/20/2022 13:57:16 06/20/2022 15:17:51 Adult health examination 808510700 Z00.00 Pt has concerns about her weight and is under stress with family and work but stable at this time. Social and family history reviewed. Immunizati ons reviewed, advised annual flu shot, due for Tdap, covid booster. She will do appt at the pharmacy. 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 declines medication at this time. NO SI or HI, Spent time discussing family issues Paroxysmal atrial fibrillation 530009363 I48.0 pt is followed by cardiology , remains on eliquis, flecanide and metoprolol for now. Seems to be in NSR today, no sx. Advised to consider sleep study repeat and work on wt loss. Pt will consider sleep evaluation Mild inter mittent asthma 488199900 J45.20 stable at this time, has proair prn Morbid obesity 548764038 E66.01 Pt will look into precision honer. Suggested lowering carbs, more protein, no meal skipping and tips to avoid night eating. Advised to try and me more active. Screening for malignant neoplasm of breast 045714017 Z12.39 Body mass index 40+ - severely obese 570594499 Z68.43 pt would like to see precision honer, will do a referral [id number] Juan Diego Cali MD Main Office [address] [place] [address] 09/26/2022 15:38:56 09/26/2022 16:43:10 Mild intermittent asthma 542747835 J45.20 rec cont montelukas t as dir, advised pt on how to use flovent x few wks - when feeling better can stop, but cont alb 5-30min ac exercise in future Paroxysmal atrial fibrillation 297333663 I48.0 cont meds, f/u c card as dir Obstructiv e sleep apnea syndrome 62800951 G47.33 seen by sleep med earlier today, will get updated sleep study Dyspnea 690962408 R06.00 negative cardiac w/u - ? d/t asthmatic bronchitis / post viral syndrome vs deconditio ashlee / obesity -- check probnp Impaired f asting glycemia 217620278 R73.01 Fatigue 91909739 R53.83 Pain of le ft hip joint 0185186190 33206 M25.552 check xray - pain x several months - r/o djd - if sig, then get ortho eval [id number] Juan Diego Cali MD [facility] [address] [facility] [address] [place] [address] 12/04/2022 08:29:26 12/04/2022 10:25:23 Cough 85220757 R05.9 rec celine or mucinex, suspect pnd == sinusitis - see below Acute sinusitis 57180613 J01.90 rec cont ns spray prn, consider warm washcloth to side of neck recommend probiotics while on abx Acute conjunctivitis 347 52062 H10.33 she left her contacts in for ~ 48 hours - suspect corneal ulceration - strongly encouraged pt to see her eye md, meanwhile will rx c abx eye ointment [id number] [facility] [address] [facility] [address] [place] [address] 01/08/2023 15:46:57 01/08/2023 16:25:29 Urinary tract infectious disease 01360079 N39.0 pt declines giving urine sample, so will rx empiricall y c cipro cont push fluids, consider cranberry juice, also consider prn pyridium recommend probiotics while on abx Seasonal a llergic rhinitis 241364459 J30.2 rec resume singulair as dir, or consider claritin, cont prn ns spray to help lessen pndrtc next week (needs ov not TH) if cough persists [id number] Juan Diego Cali MD Main Office [address] [address] [place] [address] 04/17/2023 15:26:53 04/17/2023 16:56:58 Left lateral elbow tendinopathy 0659718556 39390 M77.12 trial c TE support, cool compress prn, wrist splint o/n -- if no better call us - consider ortho for sandoval injxn Skin lesion 01518687 L98 .9 most likely epidermoid cyst - will get derm eval, ? may need to see general surgeon if they cannot remove Pain in bi lateral feet 6718411604 1815667 M79.671 better lately, no evidence / suspicion of fx [id number] Giorgio Machado MD Main Office [address] [address] [place] [address] 04/19/2023 13:10:00 04/19/2023 13:40:50 Abdominal pain 56395476 R10.9 Acute abdomen, refer to emergency department . PT. refused to go by ambulance. Will drive to [facility]. Call ahead placed to [facility] ER. [id number] MOLLY LAM MD Main Office [address] [address] [place] [address] 04/26/2023 10:09:45 05/10/2023 16:14:02 [id number] ДМИТРИЙ TAYLOR Main Office [address] [address] [place] [address] 07/24/2023 14:43:32 07/24/2023 15:27:47 Cough 86128770 R05.9 -in office RSV, flu, and covid are negative-d iscussed OTC interventi ons to help with a cough Acute sinusitis 87851668 J01.90 -x3 weeks of symptoms of sinus pressure, nasal congestion , cough, post nasal drip, and sore throat-guanakito al decongesta nts provide minimal relief-exp osed to other coworkers with similar symptoms-P E revealed sinus tenderness to the frontal sinus, erythemato us posterior oropharynx and nasal discharge- will start pt on augmentin x10 day course Mild inter mittent asthma 684197460 J45.20 per pt request, refill Health Concerns Section Related Observation LastModified by Organization Detai ls LastModified Time None Recorded Concern Status LastModified by Organization Details LastModified Time None Recorded Advance Directives Directive N: Payers Insurance Date Sequence Insurance Name Policy Number Policy Pollard Covered Member ID Pollard Member ID Guarantor Name 12/13/2020 1 [facility] - DIRECT CONNECTORCARE TYPE I (HMO) [id number] Steph Neal [id number] Steph Neal 03/19/2024 1 [facility] - DIRECT CONNECTORCARE TYPE I (HMO) [id number] Stpeh Neal [id number] Steph Neal 09/09/2014 1 [facility] - QHP (MEDICAID REPLACEMENT - HMO) [id number] Steph Neal [id number] Steph Neal 10/10/2017 2 [place]: [facility] Steph Neal [id number] Steph Neal 06/23/2021 PAYMENT PLAN Steph Neal 10/10/2017 1 [facility] - MEDICAID ESSENTIAL (MEDICAID HMO) [id number] Steph Neal [id number] Steph Neal 12/13/2020 2 [facility] - DIRECT CONNECTORCARE TYPE I (HMO) Steph Neal [id number] [facility] Neal Notes Date Note Type Note Provider Name and Address Organization Details Recorded Time 3 text/html Patient has been having urinary Pressure and frequency . Patient has noticed spasms after urinating since Saturday. no f/c, hematuria Cabrera Mondragon PA-C [address] [address], [place], [address], [facility] 01/08/2023 16:19:43 3 text/html pt had B foot pain x few wks, up until recently - now resolvedcurr c/o L elbow painno trauma to feet or LUEdoes sleep c L wrist flexed occ.also c/o lesion on her back - boyfriend is concerned, no pus dc, no f/c Cabrera Mondragon PA-C [address] [facility] [address], [place], [address], [facility] 04/20/2023 13:37:29 3 text/html ROS as noted in the HPI 47 year old female c/o acute R. mid to lower abdominal pain started yesterday morning and gradually worsened in severity. Non radiating, no nausea. NO fever, chills. NO prior h/o similar pain, renal calculi. Urine with hemolyzed trace of blood and ketones. Bela Mondragon PA-C [address] [facility] [address], [place], [address], [facility] 04/19/2023 14:39:26 3 text/html Hospitalization Contact RecordReported by PatientHospitalization Contact RecordFor follow up, patient [facility]shospital[facility],admit date: (please enter in format 'mm/dd/yyyy') (04/19/2023),date of discharge: (please enter in format 'mm/dd/yyyy') (04/23/2023), anddate of contact: (please enter in format 'mm/dd/yyyy') (04/26/2023).Medicare covered inpatient stay? noTOC with in 48 working hours? yes HCP on file? yesMOLST on file? noDischarge Summary available? yes Pt presented to [facility] ED on 04/19/23 due to 2.5 days [...] hrs prn pain (30 tabs). ANJU Sewell, [facility] 05/10/2023 16:14:01 3 text/html Sinusitis/AllergyReported by [...] sob, or chest pain. 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 Requests RSV + flu testing. Home covid test is negative. Lan Oliver MD [address] [address], [place], [address], [facility] 07/30/2023 09:10:02 OBGyn Episode No OBEpisode recorded.
--- NOTE | 2025-08-15 07:57 | ED_ITS ---
HPI - General Adult General Chief complaint: Skin/Abscess/Foreign Body Stated complaint: cyst on her back Time Seen by Provider: 08/15/25 07:55 Source: patient, RN notes reviewed and old records reviewed Mode of arrival: ambulatory Limitations: no limitations History of Present Illness ED Provider: Dwayne HPI narrative: Patient is a 50-year-old female with history of asthma, AFib on apixaban presenting to the emergency department complaining of new redness and tenderness in area of a cyst on her back which has been present for several years. States that she recently saw the [employer] recruiter and they had no concerns about the area. She reports that over the past week it has become increasingly erythematous, tender. States that her reports he has noticed drainage but she has not. She denies any fevers, chills, body aches. complaint: infected cyst Onset (ago): week(s) Related Data Home Medications ?Medication ?Instructions ?Recorded ?Confirmed levonorgestrel (Mirena) intrauterine 07/12/21 albuterol 90 mcg-budesonide 80 2 inh inhalation DAILY PRN 04/15/24 08/11/25 mcg/actuation HFA aerosol inhaler Shortness Of Breath Or Wheezing Previous Rx's ?Medication ?Instructions ?Recorded acetaminophen 325 mg capsule 650 mg (2 x 325 mg) PO Q4 H PRN 03/29/24 (Tylenol) pain #30 caps flecainide 50 mg tablet 50 mg PO BID #180 tabs 10/26 metoprolol succinate 25 mg 25 mg PO DAILY #90 tabs tablet,extended release 24 hr apixaban 5 mg tablet (Eliquis) 5 mg PO BID #180 tabs 1 nystatin 100,000 unit/gram topical 1 appl topical BID skin rash #15 08/11/25 powder grams cephalexin 500 mg capsule 500 mg PO QID #28 caps 08/15 Allergies Allergy/AdvReac Type Severity Reaction Status Date / Time No Known Allergies (No Known Allergy Verified 08/15/25 06:04 Allergies*) Review of Systems 2 Review of Systems: as per hpi Yes all other systems are reviewed and are negative Constitutional: Constitutional: Reports as per HPI PMF Past Medical History Medical History Dizziness Sleep apnea, obstructive Asthma Atrial fibrillation Surgical History History of knee surgery History of appendectomy Family History Family History Other Adopted Social History Social History (Updated 08/11/25 @ 14:17 by Lexi Montanez CNM) Household Members: Spouse, Family and Children Housing: Apartment Do you presently have visiting nurse or other home services: No Alcohol intake: current Alcohol intake frequency: holidays/special occasions only Comment: Socially Patient Tobacco Use Status: Former Tobacco user Cigarette Packs Per Day: 0.5 Years Smoked: 15 +/- e-Cigarette/Vaping Use: Never Used Second Hand Smoke Exposure: Yes Advance Directives: No Advance Directives Information Provided: Yes Do you have a plan to hurt others: No Plan service: No Current occupational status: employed 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 Blood pressure normal. Heart rate normal. Respiratory rate normal. Temperature normal. Oxygen saturation normal. Const General: cooperative and no acute distress Nutritional Appearance: obese morbidly obese Orientation/consciousness: oriented to person, oriented to place, oriented to time and patient oriented x3 Limitations: no limitations [facility] Head: Yes normocephalic and Yes atraumatic Ears: external ears normal General nose exam: Normal external nose present Face and sinus: Yes face symmetric Mouth: oropharynx normal and moist mucous membranes Throat: Yes uvula midline Eyes Pupils: Equal, round and reactive pupils present Neck Neck: Yes normal visual inspection, Yes no meningeal signs and Yes supple Resp Effort & Inspection: normal respiratory effort and able to speak in complete sentences Auscultation: clear to auscultation bilaterally Cardio Rate: regular rate Rhythm: regular rhythm Heart sounds: S1 normal heart sound present and S2 normal heart sound present GI Palpation (GI): Soft to palpation and nontender Auscultation: normoactive bowel sounds General: Yes no CVA tenderness Back/Spine/Pelvis Back: no CVA tenderness Thoracic/Lumbar Spine: No thoracic spinal tenderness and No lumbar spinal tenderness Skin General skin exam: elasticity normal and turgor normal Full body images: 2 1. erythematous fluctuant abscess just left of midline with central scab and mild surrounding induration Neuro General: oriented to person, oriented to place, oriented to time, patient oriented x3, gait normal, tone normal, moves all extremities, Normal light touch and pain sensation, no meningeal signs, no focal motor deficits, CN's II-XI intact bilaterally and deep tendon reflexes 2+ bilaterally Cranial nerves: Yes Equal, round and reactive pupils present Cognition (Neuro): normal cognition Extrem General: Yes full ROM, Yes no pedal edema and Yes no calf tenderness Psych Mental Status: mental status grossly normal Affect: normal affect Thought process: Normal thought process present Procedures Abscess I/D Site: back Side (if applicable): left Local Anesthetic: lidocaine 1% Amount of anesthesia used (mL): 3 Technique: incised with blade Amount of fluid expressed (mL): 5 Sent for culture/gram staining?: No Irrigation: No Packing used?: none Medical Decision Making Medical Decision Making [facility] Narrative: Patient is a 50-year-old female with history of asthma, AFib on apixaban presenting to the emergency department complaining of new redness and tenderness in area of a cyst on her back which has been present for several years. On exam patient is awake, A+Ox3, VS WNL, afebrile, normal neurological exam without focal deficits, physical exam findings as above. Given reported symptoms and physical exam findings, initial differential includes but is not limited to abscess, infected cyst. Area incised and drained as per procedure note, patient tolerated well. Initial discharge was caseous followed by thinner purulent drainage. Will discharge home on antibiotics. Advised daily skin checks of the area and follow up with dermatology. Will also refer to general surgery as patient notes the area has been present for years. Return precautions discussed at bedside. Patient verbalized understanding of and agreement with plan. Differential Diagnosis Differential Diagnoses: The differential diagnosis associated with the presentation includes as per mdm Admission/Observation Consideration of admission/observation: Escalation of care including admission/observation considered Patient would have been admitted to the hospital and transferred to appropriate facility had their clinical presentation warranted hospital admission. External Record Review External record reviewed: Inpatient record, Office record and Outpatient record Prescription Management I considered prescription management with: Antibiotic Discharge Plan Discharge Clinical Impression: Abscess of back Patient Disposition: Home, Self-Care Instructions: Abscess (ED), Abscess Follow-up (ED), Abscess Incision and Drainage (DC) Additional Instructions: You were evaluated in the ER for an abscess. Please keep the area surrounding the abscess clean and dry. You were given a prescription for antibiotics, please take the antibiotics as directed for the full course of the medication. You should perform a skin check of the area daily. You can use Tylenol or ibuprofen per package directions as needed for pain. If necessary, you can alternate these medications so that you take one medication every 3 hours. For instance, at noon take ibuprofen, then at 3:00 p.m. take Tylenol, then at 6:00 p.m. take ibuprofen. Please schedule an appointment with your primary care physician as soon as possible for follow-up. Return to the emergency department if you experience fevers greater than 100.4? F, increased in area of redness or swelling, increasing amount of discharge from the area, increased tenderness around the area, or any other concerning symptoms. You are being referred to general surgery to discuss removal of this cyst. Prescriptions: New cephalexin 500 mg capsule 500 mg PO QID Qty: 28 0RF No Action metoprolol succinate 25 mg tablet extended release 24 hr 25 mg PO DAILY Qty: 90 3RF Eliquis 5 mg tablet 5 mg PO BID Qty: 180 3RF acetaminophen [Tylenol] 325 mg capsule 650 mg PO Q4H PRN (Reason: pain) Qty: 30 0RF albuterol-budesonide 90-80 mcg/actuation HFA aerosol inhaler 2 inh inhalation DAILY PRN (Reason: Shortness Of Breath Or Wheezing) Mirena 20 mcg/24 hours (7 yrs) 52 mg intrauterine device intrauterine flecainide 50 mg tablet 50 mg PO BID Qty: 180 3RF nystatin 100,000 unit/gram powder 1 appl topical BID Qty: 15 2RF Referrals: [facility] [Provider Group, General Surgery] - 1 week Referral Note: infected sebaceous cyst Clinical Impression: Abscess of back Print Language: Kazakh
[2025-08-15] MEDS: Lidocaine HCl 1 % MPF 5 ML VIAL INFILTRATI (08:49)
[2025-08-15 09:25] VITALS: BP 140/77; PULSE 60; RESP 18; TEMP 36.6; O2SAT 95
[2025-08-15 09:36] VITALS: BP 140/77; PULSE 60; RESP 18; TEMP 36.6; O2SAT 95
== END 2025-08-15 09:36 | disposition home or self-care (01) ==
PROVIDERS: Emergency Provider Emergency Medicine Emergency Medical Services
DX: L02.212 Cutaneous abscess of back [any part, except buttock and flank] (principal); I48.91 Unspecified atrial fibrillation; J45.909 Unspecified asthma, uncomplicated; Z79.01 Long term (current) use of anticoagulants; Z87.891 Personal history of nicotine dependence
CPT/HCPCS: 10060; 99283; 99284; J2003